=== PATIENT | female | born 1940 ===

== ENCOUNTER 2020-02-26 13:51 | Inpatient (IN) | payer MEDICARE, OTHER, SELFPAY ==
[2020-02-26 14:00] VITALS: BP 128/62; BP 140/74; PULSE 70; PULSE 92; RESP 16; TEMP 35.9; O2SAT 96; O2SAT 98; BMI 23.4
[2020-02-26 14:40] VITALS: BP 128/62; PULSE 92; RESP 16; TEMP 35.9; O2SAT 98
--- NOTE | 2020-02-26 14:45 | XR_ITS ---
EXAMINATION: XR CHEST CLINICAL INFORMATION: Cough, shortness of breath. COMPARISON: None TECHNIQUE: 2 views of the chest were obtained. FINDINGS: Mild interstitial prominence without focal airspace consolidation. No pleural effusion or pneumothorax. Mild cardiomegaly. No acute osseous abnormality. XR/XR chest 2V IMPRESSION: Mild interstitial prominence without focal airspace consolidation. Mild cardiomegaly.
--- NOTE | 2020-02-26 14:45 | CT_ITS ---
EXAMINATION: CT HEAD WITHOUT CONTRAST CLINICAL INFORMATION: AMS. COMPARISON: None TECHNIQUE: Contiguous axial imaging was performed from the skull base to vertex without intravenous administration of contrast. This CT examination was performed using dose optimization techniques as appropriate, variously including the following: *Automated exposure control *Adjustment of mA and/or kV according to patient size (this includes techniques or standardized protocols for targeted exams where dose is matched to indication/reason for exam; i.e. extremities or head) *Use of iterative reconstruction technique DLP: 575 mGy-cm FINDINGS: There is no evidence of acute intracranial hemorrhage or territorial infarction. No abnormal mass effect or midline shift is seen. Smith to white matter differentiation is well preserved. No extra-axial fluid collections are identified. The ventricles are normal in size. There is no abnormal attenuation within the brain parenchyma. There are small polyps or retention cysts in the paranasal sinuses and mastoid air cells are well-aerated. No scalp soft tissue swelling seen. There are 4 small round radiopaque foreign arteries seen within the right anterior orbital wall. CT/CT head/brain wo con IMPRESSION: No acute intracranial process seen..
--- NOTE | 2020-02-26 14:45 | ECG_ITS ---
Test Reason : CARDIAC HISTORY Blood Pressure : / mmHG Vent. Rate : 082 BPM Atrial Rate : 087 BPM P-R Int : 000 ms QRS Dur : 098 ms QT Int : 358 ms P-R-T Axes : 000 -54 -66 degrees QTc Int : 418 ms Atrial fibrillation Incomplete right bundle branch block Left anterior fascicular block Minimal voltage criteria for LVH, may be normal variant Septal infarct , age undetermined ST & T wave abnormality, consider lateral ischemia Abnormal ECG No previous ECGs available Referred By: Sandee David Electronically Signed By:NOHEMI BOYD
[2020-02-26 14:46] VITALS: BP 131/76; PULSE 80; RESP 20; TEMP 37; O2SAT 96
[2020-02-26 16:08] LABS: Basophils Percent Auto 0.3 % (0-2); Eosinophils Percent Auto 0.4 % (0-4); Hematocrit 39.1 % (37-47); Hemoglobin 13.2 g/dl (12.0-16.0); Imm Gran Abs Auto 0.03 X10*3/uL (0.00-0.03); Imm Gran Pct Auto 0.3 % (0.0-0.4); Lymphocytes Absolute Auto 1.6 X10*3/uL (1.2-4.9); Lymphocytes Percent Auto 16.7 % (20-40); Mean Corpuscular HGB Conc 33.8 g/dl (31.0-35.0); Mean Corpuscular Hemoglobin 30.1 pg (27.0-33.0); Mean Corpuscular Volume 89.3 fL (80-98); Mean Platelet Volume 11.1 fL (9.4-12.3); Monocytes Absolute Auto 0.5 X10*3/uL (0.1-1.2); Monocytes Percent Auto 5.5 % (2-11); Neutrophils Absolute Auto 7.2 X10*3/uL (2.0-8.3); Neutrophils Percent Auto 76.8 % (45-73); Platelet Count 286 X10*3/uL (160-400); Red Blood Count 4.38 X10*6/uL (4.20-5.50); Red Cell Distribution Width 13.7 % (11.0-16.0); White Blood Count 9.4 X10*3/uL (4.8-10.8)
[2020-02-26 16:09] LABS: MANUAL DIFF FLAG NO
[2020-02-26 16:15] LABS: Prothrombin Time 12.4 SEC (10.8-13.0)
--- NOTE | 2020-02-26 16:20 | ECG_ITS ---
Test Reason : AFIB Blood Pressure : / mmHG Vent. Rate : 101 BPM Atrial Rate : 104 BPM P-R Int : 000 ms QRS Dur : 096 ms QT Int : 334 ms P-R-T Axes : 000 -54 100 degrees QTc Int : 433 ms Atrial fibrillation with rapid ventricular response with premature ventricular or aberrantly conducted complexes Left axis deviation Septal infarct (cited on or before 26-FEB-2020) ST & T wave abnormality, consider lateral ischemia Abnormal ECG When compared with ECG of 26-FEB-2020 15:20, No significant change was found Referred By: Sandee David Electronically Signed By:NOHEMI BOYD
--- NOTE | 2020-02-26 16:24 | ED_ITS ---
HPI - Psych General Chief Complaint: Psychiatric Symptoms Stated Complaint: SI Time Seen by Provider: 02/26/20 14:45 Source: patient and EMS Mode of arrival: EMS Limitations: no limitations History of Present Illness HPI Narrative: 79yoF c PMHx of HTN, HLD and melena presenting to the ED via EMS after an SI attempt where she took 1 Tylenol and 1 Aleve to end her life she reports and seen in the community by N and placed on a Section 12/bed search. Patient denies prior history of SI thoughts. Reports over the past few days she has been increasingly depressed and she is unsure why although she reports that it is related to her daughter dying in May from a massive AK and her other daughter who is in remission for cancer. She reports she woke up from a nap with her and she could not take it anymore. She denies any alcohol or drug usage. Reports she feels safe at home. Patient reports she had an episode of chest pain while in the ambulance although it resolved quickly. Denies any dizziness, change in vision, jaw pain, paresthesias, any active chest pain at this time, back pain, shortness of breath, abdominal pain, nausea/vomiting, sore throat, cough, dysuria, hematuria, diarrhea or constipation. Denies any other symptoms complaints or concerns at this time. Patient reports she was seen at [facility] on 12/13/2019 and admitted for 2 weeks of chest pain. Records obtained and reveals that she had 3-troponins, bedside ultrasound done by ED did not suggest any wall motion abnormalities, aneurysm, reduced EF. EKG showed no signs of ischemia. Patient was also seen at [facility] and supposedly had a negative stress test although unable to get those records at this time. We did leave a message so we can get the patient's records from [facility] as well. Related Data Home Medications Medication Instructions Recorded Confirmed alendronate 1 tab PO DAILY 02/26/20 02/26/20 amlodipine 1 tab PO DAILY 02/26/20 02/26/20 aspirin 81 mg PO DAILY 02/26/20 02/26/20 lisinopril 1 tab PO DAILY 02/26/20 02/26/20 metoprolol succinate 1 tab PO DAILY 02/26/20 02/26/20 omeprazole 1 cap PO DAILY 02/26/20 02/26/20 sertraline [Zoloft] 50 mg PO DAILY 02/26/20 02/26/20 Allergies Allergy/AdvReac Type Severity Reaction Status Date / Time No Known Allergies Allergy Verified 02/26/20 14:17 Review of Systems Review of Systems: Constitutional : No Fever, No Chills ENT/Mouth : No Ear Pain, No Nasal Congestion, No sore throat Eyes: No Eye Pain, No Swelling, No Redness Cardiovascular : No Chest Pain, No SOB Respiratory : No Cough, No Sputum, No Dyspnea Gastrointestinal : No ingestions, No Nausea, No Vomiting, No Diarrhea, No Hematochezia, No Melena Genitourinary : No Dysuria, No Urinary Frequency, No Hematuria Musculoskeletal : No Myalgias Skin : No Skin Lesions, No rash Neuro : No Weakness, No Numbness, No Paresthesias, No Dizziness, No Headache Psych : + Anxiety, + Depression, + SI, + No thoughts of self injury, No HI, No AVH, Heme/Lymph: No Lymphadenopathy Endocrine : No Polyuria, No Polydipsia Yes all other systems are reviewed and are negative [facility] Past Medical History Attestation statement: The following information was validated with the patient. Medical History Anxiety Depression GERD (gastroesophageal reflux disease) HTN (hypertension) Social History Social History Alcohol intake: former Smoking Status: Never smoker Use of substances other than those prescribed or required for medical reasons: No Advance Directives: No Advance Directives Information Provided: No Physical Exam Vital Signs: Vital Signs: Last Vital Signs Temp 98.7 F 02/26/20 16:29 Pulse 99 02/26/20 16:29 Resp 16 02/26/20 16:29 BP 153/90 H 02/26/20 16:29 Pulse Ox 96 02/26/20 16:29 Body Mass Index 23.4 vital signs have been reviewed as normal and appeared to be correct. Blood pressure normal. Heart rate normal. Respiration rate normal. Temperature normal. Oxygen saturation normal. Appearance: Alert. Oriented X3. No acute distress. Head: Normal external exam. Normocephalic. Atraumatic. No Jiang signs noted. No raccoon eyes noted Eyes: PERRLA. EOMI. Conjunctiva and sclera normal. Eyelids normal. ENT: EAC normal. TM's Normal. Pharynx normal. Uvula midline. Moist mucous membranes. No trismus noted. No drooling noted. No muffled voice noted. Neck: Normal inspection. Neck supple. FROM. No adenopathy. Thyroid Normal. No meningeal signs. No neck mass noted. CVS: Normal heart rate and rhythm. Heart sound normal. No murmurs noted. Pulses normal throughout. Respiratory: No respiratory distress. Painless inspiration. Breath sounds normal. No wheezes/rales/rhonchi noted. Chest nontender. No accessory muscle usage noted or decreased air movement noted. Abdomen: Soft and nontender. Bowel sounds normal in all 4 quadrants. No distention noted. No organomegaly noted. No visible injury noted. Back: No CVA tenderness. Full range of motion noted. Skin: Skin warm and dry. Normal skin color. Normal skin turgor. No rashes/lesions/lacerations noted. Extremities: No lower extremity edema. Extremities exhibit normal range of motion. Extremities nontender. Neuro: Oriented X 3. No motor deficit. No sensory deficit. Reflexes normal. Psych: Appearance grossly normal, well-kept, mental status normal, speech and movement normal, speech clear, patient appears very sad and anxious along with depressed. Is cooperative. Patient does not have a normal thought process/normal thought content/judgment or good insight. Course Course Course Narrative: 14:45pm - 79yoF c PMHx of HTN, HLD and melena presenting to the ED via EMS after an SI attempt where she took 1 Tylenol and 1 Aleve to end her life she reports. Seen by N in community placed on Section 12/bed search. - Plan: Labs, EKG, CXR, salicylate level, acetaminophen levels, UA, drug urine screen, SARs/RSV/COVID swab. Then re-evaluate - patient has a chads score of 4. Reevaluation(s) Reevaluation #1: - EKG obtained and it appears that the patient has a new onset of rate controlled atrial fibrillation [facility] records in November did not show that the patient was in atrial fibrillation she is currently on aspirin daily. - I consulted with Dr. Reynaga the aircraft electrical systems specialist who instructed me to order an echo and reported that he would see her on M5 tomorrow. - troponin 21.4. All other labs WNL. - CXR no acute processes noted. - CT scan of brain no acute processes noted. - therefore the patient will be admitted to M5 the hospitalist will consult on the patient and super catherine and the aircraft electrical systems specialist will also follow-up with the patient tomorrow morning on M5. Time: 16:53 Reevaluation #2: - M5 was concerned about the patient's troponin and not being able to placed on a monitor car operator and concerned that she might become uncontrolled with her rate and they will be unable to monitor her therefore I consulted with Dr. Reynaga and he recommending admitting the patient to [facility] therefore I spoke to Dr. Langston he understands agrees the plan. Time: 17:17 MDM - Psych Restraints Face to Face Assessment: Face to Face Assessment: Current Situation: After assessment of the patient, a review of the pertinent medical record and a discussion with nursing staff, I feel the patient requires a restrain intervention. Reaction To: [] Medical Condition: [] Behavioral State: [] Continued Need: [] Medical Records Attestation: I reviewed the patient's medical records. Lab Data Attestation: I reviewed the patient's lab results. Result diagrams: 02/26/20 16:01 02/26/20 16:00 Labs: Lab Results 02/26/20 02/26/20 02/26/20 Range/Units 16:00 16:01 16:01 WBC 9.4 (4.8-10.8) X10*3/uL RBC 4.38 (4.20-5.50) X10*6/uL Hgb 13.2 (12.0-16.0) g/dl Hct 39.1 (37-47) % MCV 89.3 (80-98) fL MCH 30.1 (27.0-33.0) pg MCHC 33.8 (31.0-35.0) g/dl RDW 13.7 (11.0-16.0) % Plt Count 286 (160-400) X10*3/uL MPV 11.1 (9.4-12.3) fL Immature Gran % (Auto) 0.3 (0.0-0.4) % Neut % (Auto) 76.8 H (45-73) % Lymph % (Auto) 16.7 L (20-40) % [place] % (Auto) 5.5 (2-11) % Eos % (Auto) 0.4 (0-4) % Baso % (Auto) 0.3 (0-2) % Lymph # (Auto) 1.6 (1.2-4.9) X10*3/uL [place] # (Auto) 0.5 (0.1-1.2) X10*3/uL Eos # (Auto) 0.0 (0.0-0.4) X10*3/uL Baso # (Auto) 0.0 (0.0-0.2) X10*3/uL Abs Immat Gran (auto) 0.03 (0.00-0.03) X10*3/uL Absolute Neuts (auto) 7.2 (2.0-8.3) X10*3/uL Absolute Nucleated RBC 0.000 (0.0-0.012) X10*3/uL Nucleated RBC % (auto) 0.0 (0.0-0.2) /100WBC Hold Purple Top PT 12.4 (10.8-13.0) SEC INR 1.0 (0.9-1.1) Sodium 143 (135-145) mmol/L Potassium 3.2 L (3.3-5.1) mmol/l Chloride 105 (96-108) mmol/L Carbon Dioxide 27 (22-29) mmol/L Anion Gap 14 (12-20) BUN 18 H (9-16) mg/dL Creatinine 0.89 (0.5-1.4) mg/dL Estim Creat Clear Calc 36.2 Estimated GFR > 60 Random Glucose 108 (60-115) mg/dL Calcium 9.3 (8.4-10.2) mg/dL Magnesium 2.1 (1.6-2.6) mg/dL Total Bilirubin 0.2 (0.0-1.0) mg/dL Direct Bilirubin 0.2 (0.0-0.5) mg/dL AST 14 (5-31) U/L ALT 18 (0-31) U/L Alkaline Phosphatase 61 (39-117) U/L Troponin I High Sens (<3.5-17.0) ng/L B-Natriuretic Peptide (<100) pg/mL Total Protein 7.0 (6.5-8.0) g/dL Albumin 4.1 (3.5-5.0) g/dL Urine Color Urine Appearance Urine pH (5.0-8.0) Ur Specific [place] (1.005-1.025) Urine Protein (NEG-TRACE) MG/DL Urine Glucose (UA) (NEG) MG/DL Urine Ketones (NEG) MG/DL Urine Blood (NEG) Urine Nitrite (NEG) Ur Leukocyte Esterase (NEG) Urine RBC (0) /HPF Urine WBC (0-4) /HPF Ur Squamous Epith Cells /LPF Urine Bacteria /LPF Salicylates < 5.0 L (15-30) mg/dL Acetaminophen < 1 (<30) mcg/mL Ethyl Alcohol mg/dL 02/26/20 02/26/20 02/26/20 Range/Units 16:01 16:01 16:01 WBC (4.8-10.8) X10*3/uL RBC (4.20-5.50) X10*6/uL Hgb (12.0-16.0) g/dl Hct (37-47) % MCV (80-98) fL MCH (27.0-33.0) pg MCHC (31.0-35.0) g/dl RDW (11.0-16.0) % Plt Count (160-400) X10*3/uL MPV (9.4-12.3) fL Immature Gran % (Auto) (0.0-0.4) % Neut % (Auto) (45-73) % Lymph % (Auto) (20-40) % [place] % (Auto) (2-11) % Eos % (Auto) (0-4) % Baso % (Auto) (0-2) % Lymph # (Auto) (1.2-4.9) X10*3/uL [place] # (Auto) (0.1-1.2) X10*3/uL Eos # (Auto) (0.0-0.4) X10*3/uL Baso # (Auto) (0.0-0.2) X10*3/uL Abs Immat Gran (auto) (0.00-0.03) X10*3/uL Absolute Neuts (auto) (2.0-8.3) X10*3/uL Absolute Nucleated RBC (0.0-0.012) X10*3/uL Nucleated RBC % (auto) (0.0-0.2) /100WBC Hold Purple Top SEE NOTE PT (10.8-13.0) SEC INR (0.9-1.1) Sodium (135-145) mmol/L Potassium (3.3-5.1) mmol/l Chloride (96-108) mmol/L Carbon Dioxide (22-29) mmol/L Anion Gap (12-20) BUN (9-16) mg/dL Creatinine (0.5-1.4) mg/dL Estim Creat Clear Calc Estimated GFR Random Glucose (60-115) mg/dL Calcium (8.4-10.2) mg/dL Magnesium (1.6-2.6) mg/dL Total Bilirubin (0.0-1.0) mg/dL Direct Bilirubin (0.0-0.5) mg/dL AST (5-31) U/L ALT (0-31) U/L Alkaline Phosphatase (39-117) U/L Troponin I High Sens 21.4 H (<3.5-17.0) ng/L B-Natriuretic Peptide 122 H (<100) pg/mL Total Protein (6.5-8.0) g/dL Albumin (3.5-5.0) g/dL Urine Color Urine Appearance Urine pH (5.0-8.0) Ur Specific [place] (1.005-1.025) Urine Protein (NEG-TRACE) MG/DL Urine Glucose (UA) (NEG) MG/DL Urine Ketones (NEG) MG/DL Urine Blood (NEG) Urine Nitrite (NEG) Ur Leukocyte Esterase (NEG) Urine RBC (0) /HPF Urine WBC (0-4) /HPF Ur Squamous Epith Cells /LPF Urine Bacteria /LPF Salicylates (15-30) mg/dL Acetaminophen (<30) mcg/mL Ethyl Alcohol < 10 mg/dL 02/26/20 Range/Units 16:49 WBC (4.8-10.8) X10*3/uL RBC (4.20-5.50) X10*6/uL Hgb (12.0-16.0) g/dl Hct (37-47) % MCV (80-98) fL MCH (27.0-33.0) pg MCHC (31.0-35.0) g/dl RDW (11.0-16.0) % Plt Count (160-400) X10*3/uL MPV (9.4-12.3) fL Immature Gran % (Auto) (0.0-0.4) % Neut % (Auto) (45-73) % Lymph % (Auto) (20-40) % [place] % (Auto) (2-11) % Eos % (Auto) (0-4) % Baso % (Auto) (0-2) % Lymph # (Auto) (1.2-4.9) X10*3/uL [place] # (Auto) (0.1-1.2) X10*3/uL Eos # (Auto) (0.0-0.4) X10*3/uL Baso # (Auto) (0.0-0.2) X10*3/uL Abs Immat Gran (auto) (0.00-0.03) X10*3/uL Absolute Neuts (auto) (2.0-8.3) X10*3/uL Absolute Nucleated RBC (0.0-0.012) X10*3/uL Nucleated RBC % (auto) (0.0-0.2) /100WBC Hold Purple Top PT (10.8-13.0) SEC INR (0.9-1.1) Sodium (135-145) mmol/L Potassium (3.3-5.1) mmol/l Chloride (96-108) mmol/L Carbon Dioxide (22-29) mmol/L Anion Gap (12-20) BUN (9-16) mg/dL Creatinine (0.5-1.4) mg/dL Estim Creat Clear Calc Estimated GFR Random Glucose (60-115) mg/dL Calcium (8.4-10.2) mg/dL Magnesium (1.6-2.6) mg/dL Total Bilirubin (0.0-1.0) mg/dL Direct Bilirubin (0.0-0.5) mg/dL AST (5-31) U/L ALT (0-31) U/L Alkaline Phosphatase (39-117) U/L Troponin I High Sens (<3.5-17.0) ng/L B-Natriuretic Peptide (<100) pg/mL Total Protein (6.5-8.0) g/dL Albumin (3.5-5.0) g/dL Urine Color YELLOW Urine Appearance CLEAR Urine pH 6.5 (5.0-8.0) Ur Specific [place] 1.015 (1.005-1.025) Urine Protein NEG (NEG-TRACE) MG/DL Urine Glucose (UA) NEG (NEG) MG/DL Urine Ketones NEG (NEG) MG/DL Urine Blood NEG (NEG) Urine Nitrite NEG (NEG) Ur Leukocyte Esterase TRACE H (NEG) Urine RBC 0 (0) /HPF Urine WBC 5-9 H (0-4) /HPF Ur Squamous Epith Cells 2+ /LPF Urine Bacteria 1+ /LPF Salicylates (15-30) mg/dL Acetaminophen (<30) mcg/mL Ethyl Alcohol mg/dL Imaging Data Chest x-ray: Attestation: I personally reviewed and interpreted this imaging study as follows: Radiologist's impression: IMPRESSION: Mild interstitial prominence without focal airspace consolidation. Mild cardiomegaly. CT scan - head: Attestation: I personally reviewed and interpreted this imaging study as follows: Radiologist's impression: IMPRESSION: No acute intracranial process seen.. ECG Data Attestation: I personally reviewed and interpreted this ECG as follows: ECG interpretation date: 02/26/20 ECG interpretation time: 15:20 Interpretation: Atrial fibrillation with a ventricular rate of 82 with the incomplete right bundle branch block with left anterior fascicular block with minimal voltage criteria for LVH nonspecific ST and T-wave abnormalities no acute ischemic changes noted. This is a new onset of atrial fibrillation we obtained the EKG from [facility] on November 2019 and she had sinus rhythm with frequent premature ventricular complexes the rest of the EKG is similar compared to today. No acute ischemic changes noted today. Critical Care Time Critical Care Time Critical Care Time: Yes Total Critical Care Time: 60 Attestation: I personally attest to this time spent taking care of the patient Discharge Plan Discharge Clinical Impression: Suicidal ideation, Depression, Atrial fibrillation with controlled ventricular rate, Elevated troponin Patient Disposition: Admitted As Inpatient
[2020-02-26 16:27] LABS: Ethanol < 10 mg/dL
[2020-02-26 16:29] VITALS: BP 153/90; PULSE 99; RESP 16; TEMP 37.1; O2SAT 96
[2020-02-26 16:33] LABS: Alanine Aminotransferase 18 U/L (0-31); Albumin Level 4.1 g/dL (3.5-5.0); Alkaline Phosphatase 61 U/L (39-117); Anion Gap 14 (12-20); Aspartate Amino Transferase 14 U/L (5-31); Bilirubin Direct 0.2 mg/dL (0.0-0.5); Bilirubin Total 0.2 mg/dL (0.0-1.0); Blood Urea Nitrogen 18 mg/dL (9-16); Calcium 9.3 mg/dL (8.4-10.2); Carbon Dioxide 27 mmol/L (22-29); Chloride 105 mmol/L (96-108); Creatinine Clr Calc Pharmacy 36.2; Estimated Glomerular Filt Rate > 60; Glucose Random 108 mg/dL (60-115); Magnesium 2.1 mg/dL (1.6-2.6); Potassium 3.2 mmol/l (3.3-5.1); Salicylate < 5.0 mg/dL (15-30); Sodium 143 mmol/L (135-145)
[2020-02-26 16:44] LABS: Acetaminophen LAB < 1 mcg/mL (<30)
[2020-02-26 16:54] LABS: B Type Natriuretic Peptide 122 pg/mL (<100); Troponin-I High Sensitivity 21.4 ng/L (<3.5-17.0)
[2020-02-26 16:56] LABS: Glucose Urine UA NEG (NEG); Leukocyte Esterase Urine TRACE (NEG); Nitrite Urine NEG (NEG); PH 6.5 (5.0-8.0); Specific Gravity - Urine 1.015 (1.005-1.025); Urine Blood NEG (NEG); Urine Ketones NEG (NEG); Urine Protein NEG (NEG-TRACE)
[2020-02-26 16:57] LABS: Appearance Urine CLEAR; Color Urine YELLOW
[2020-02-26 17:04] LABS: Bacteria Urine 1+ /LPF; RBC Urine 0 /HPF (0); Squamous Epithelial Cell Urine 2+ /LPF
[2020-02-26 17:27] LABS: Influenza A PCR NEGATIVE (Negative); Influenza B PCR NEGATIVE (Negative); Resp Syncy Virus RNA Qual PCR NEGATIVE (Negative); SARS COV2 PCR INHOUSE NEGATIVE (Negative)
--- NOTE | 2020-02-26 17:35 | PC.NURSE ---
Pt moved to Main ED, report given to Mark العلي. Pt ambulated with steady gait.
--- NOTE | 2020-02-26 17:51 | MHC.CARE ---
CARE Team speaks with Emma from [facility], informing [facility] that pt is being admitted to medical floor. Plan is for [facility] to see pt once medically cleared. Please re consult [facility] once pt is ready for psychiatric placement.
--- NOTE | 2020-02-26 19:45 | P.HPHOSP_ITS ---
History of Present Illness Date of Service: 02/26/20 Chief Complaint: new onset a.efrem Past medical history of hypertension, depression, anxiety who presents to the hospital after a suicidal attempt. Patient initially was going to be admitted directly to [facility] but was found to have AFib on EKG done in the ED. patient is being admitted to the medical team for an echo recommended by Cardiology. She is feeling very depressed, currently not suicidal and wants to go home but reports that she did want to harm herself earlier in the day by ingesting some pills not that many but she is not willing to tell me which pills as she does not know. She has been feeling palpitations for a while she says and points to chest pain that is left-sided, reproducible on palpation of the chest, not associated with any radiation, any shortness of breath, no nausea or vomiting. The chest pain is 3/10, constant, started today, and occurs on any movement and on pressing on her chest. Denies any trauma to the chest. Otherwise denies any headache, change in vision, she is complaining of suprapubic pain, diarrhea constipation, no urinary symptoms and no lower extremity edema. On arrival To the ED hemodynamically stable with no significant abnormal vitals, Labs are significant for WBC count of 9.4, hemoglobin of 13.2, hematocrit 39.1, sodium of 143, potassium 3.2, BUN of 18, creatinine of 0.89, high sensitivity troponin of 21 which improved to 19, BNP of 122 Her UA is positive for leukocyte Estrace and urine WBC COVID-19 negative, imaging including chest x-ray shows interstitial prominence without focal airspace consolidation. Cardiomegaly. No acute intracranial process seen on head CT. Past medical history: Anxiety, depression, GERD, hypertension Surgical history: Denies Family history: No history of cardiac disease in family including no AFib Social history: Comes from home, lives with her , walks independently, denies any tobacco alcohol or illicit drug Review of Systems Review of Systems: Yes all other systems are reviewed and are negative [facility] Medical History (Updated 02/26/20 @ 20:14 by Royce Leiva MD) Anxiety Depression GERD (gastroesophageal reflux disease) HTN (hypertension) Social History Alcohol intake: former Smoking Status: Never smoker Use of substances other than those prescribed or required for medical reasons: No Advance Directives: No Advance Directives Information Provided: No Meds Allergies Allergy/AdvReac Type Severity Reaction Status Date / Time No Known Allergies Allergy Verified 02/26/20 14:17 Home Medications Medication Instructions Recorded Confirmed Type alendronate 1 tab PO DAILY 02/26/20 02/26/20 History amlodipine 1 tab PO DAILY 02/26/20 02/26/20 History aspirin 81 mg PO DAILY 02/26/20 02/26/20 History lisinopril 1 tab PO DAILY 02/26/20 02/26/20 History metoprolol succinate 1 tab PO DAILY 02/26/20 02/26/20 History omeprazole 1 cap PO DAILY 02/26/20 02/26/20 History sertraline [Zoloft] 50 mg PO DAILY 02/26/20 02/26/20 History Physical Exam Vital Signs and Narrative: Vital Signs: Last Vital Signs Temp 98.7 F 02/26/20 16:29 Pulse 99 02/26/20 16:29 Resp 16 02/26/20 16:29 BP 153/90 H 02/26/20 16:29 Pulse Ox 96 02/26/20 16:29 Body Mass Index 23.4 Const: General: cooperative and no acute distress Orientation/consciousness: patient oriented x3 Eyes: General: appearance normal, both eyes and all related structures Chest: Other: Reproducible chest tenderness on the left side on palpation Resp: Effort & Inspection: normal respiratory effort and able to speak in complete sentences Cardio: Rate: regular rate Rhythm: regular rhythm GI: Palpation (GI): Soft to palpation Auscultation: normal bowel sounds Skin: General skin exam: no rashes or lesions noted Neuro: General: patient oriented x3 Cognition (Neuro): normal cognition Extrem: General: Yes normal to inspection and Yes no pedal edema Results Labs CBC and Chem 7: 02/26/20 16:01 02/26/20 16:00 Labs: Laboratory Results - last 24 hr 02/26/20 02/26/20 02/26/20 16:00 16:01 16:01 MCV 89.3 MCH 30.1 MCHC 33.8 RDW 13.7 Plt Count 286 MPV 11.1 Immature Gran % (Auto) 0.3 Neut % (Auto) 76.8 H Lymph % (Auto) 16.7 L [place] % (Auto) 5.5 Eos % (Auto) 0.4 Baso % (Auto) 0.3 Lymph # (Auto) 1.6 Curry # (Auto) 0.5 Eos # (Auto) 0.0 Baso # (Auto) 0.0 Abs Immat Gran (auto) 0.03 Absolute Neuts (auto) 7.2 Absolute Nucleated RBC 0.000 Nucleated RBC % (auto) 0.0 Hold Purple Top PT 12.4 INR 1.0 Anion Gap 14 Estim Creat Clear Calc 36.2 Estimated GFR > 60 Random Glucose 108 Calcium 9.3 Magnesium 2.1 Total Bilirubin 0.2 Direct Bilirubin 0.2 AST 14 ALT 18 Alkaline Phosphatase 61 Troponin I High Sens B-Natriuretic Peptide Total Protein 7.0 Albumin 4.1 Urine Color Urine Appearance Urine pH Ur Specific [place] Urine Protein Urine Glucose (UA) Urine Ketones Urine Blood Urine Nitrite Ur Leukocyte Esterase Urine RBC Urine WBC Ur Squamous Epith Cells Urine Bacteria Salicylates < 5.0 L Acetaminophen < 1 Ethyl Alcohol Coronavirus (PCR) Influenza Type A (PCR) Influenza Type B (PCR) RSV RNA Qual (PCR) 02/26/20 02/26/20 02/26/20 16:01 16:01 16:01 MCV MCH MCHC RDW Plt Count MPV Immature Gran % (Auto) Neut % (Auto) Lymph % (Auto) [place] % (Auto) Eos % (Auto) Baso % (Auto) Lymph # (Auto) Curry # (Auto) Eos # (Auto) Baso # (Auto) Abs Immat Gran (auto) Absolute Neuts (auto) Absolute Nucleated RBC Nucleated RBC % (auto) Hold Purple Top SEE NOTE PT INR Anion Gap Estim Creat Clear Calc Estimated GFR Random Glucose Calcium Magnesium Total Bilirubin Direct Bilirubin AST ALT Alkaline Phosphatase Troponin I High Sens 21.4 H B-Natriuretic Peptide 122 H Total Protein Albumin Urine Color Urine Appearance Urine pH Ur Specific [place] Urine Protein Urine Glucose (UA) Urine Ketones Urine Blood Urine Nitrite Ur Leukocyte Esterase Urine RBC Urine WBC Ur Squamous Epith Cells Urine Bacteria Salicylates Acetaminophen Ethyl Alcohol < 10 Coronavirus (PCR) Influenza Type A (PCR) Influenza Type B (PCR) RSV RNA Qual (PCR) 02/26/20 02/26/20 16:33 16:49 MCV MCH MCHC RDW Plt Count MPV Immature Gran % (Auto) Neut % (Auto) Lymph % (Auto) [place] % (Auto) Eos % (Auto) Baso % (Auto) Lymph # (Auto) Curry # (Auto) Eos # (Auto) Baso # (Auto) Abs Immat Gran (auto) Absolute Neuts (auto) Absolute Nucleated RBC Nucleated RBC % (auto) Hold Purple Top PT INR Anion Gap Estim Creat Clear Calc Estimated GFR Random Glucose Calcium Magnesium Total Bilirubin Direct Bilirubin AST ALT Alkaline Phosphatase Troponin I High Sens B-Natriuretic Peptide Total Protein Albumin Urine Color YELLOW Urine Appearance CLEAR Urine pH 6.5 Ur Specific [place] 1.015 Urine Protein NEG Urine Glucose (UA) NEG Urine Ketones NEG Urine Blood NEG Urine Nitrite NEG Ur Leukocyte Esterase TRACE H Urine RBC 0 Urine WBC 5-9 H Ur Squamous Epith Cells 2+ Urine Bacteria 1+ Salicylates Acetaminophen Ethyl Alcohol Coronavirus (PCR) NEGATIVE Influenza Type A (PCR) NEGATIVE Influenza Type B (PCR) NEGATIVE RSV RNA Qual (PCR) NEGATIVE Imaging Radiologist's Impressions: Impressions Chest X-Ray 02/26/20 14:45 IMPRESSION: Mild interstitial prominence without focal airspace consolidation. Mild cardiomegaly. Head CT 02/26/20 14:45 IMPRESSION: No acute intracranial process seen.. Assessment and Plan (1) Atrial fibrillation with controlled ventricular rate: Status: Acute (2) Suicidal ideation: Status: Acute (3) Depression: Status: Acute (4) Elevated troponin: Status: Acute (5) HTN (hypertension): Status: Acute 79-year-old female with past medical history of depression anxiety and hypertension who presents to the hospital after a suicidal attempt found to have atrial fibrillation with controlled ventricular rate. # new onset AFib - controlled ventricular rate - patient on metoprolol at home - patient denies any previous history - has evidence of cardiomegaly on chest x-ray although not sensitive Plan: - will obtain echocardiogram - continue metoprolol - start Xarelto - consult cardiology # suicidal attempt - unclear how many pills she took or what she took because she is refusing to report but according to her she took 1 pill of Tylenol will pill of Aleve - patient reports no suicidal ideation at this time Plan: - will need sitter at bedside - admit to [facility] once medically cleared # hypertension - stable - continue amlodipine, lisinopril, metoprolol # Depression anxiety - psychiatry on consult - management per Psychiatry DVT prophylaxis: Xarelto
[2020-02-26 19:47] LABS: Thyroid Stimulating Hormone 1.83 uIU/mL (0.32-4.0)
[2020-02-26 19:52] LABS: Troponin-I High Sensitivity 19.1 ng/L (<3.5-17.0)
[2020-02-26 22:08] VITALS: BP 132/58; PULSE 112; RESP 16; TEMP 36.9; O2SAT 96
[2020-02-26 23:30] VITALS: BP 144/87; PULSE 103; RESP 16; TEMP 36.6; O2SAT 97
[2020-02-27] VITALS (8 sets, daily range): BP systolic 104–148; BP diastolic 55–83; PULSE 72–100; RESP 18–19; TEMP 36.6–36.8; O2SAT 95–97
[2020-02-27] MEDS: 0.9 % Sodium Chloride Flush 3 ML SYRINGE IVFLUSH ×4 (00:51→21:47)
[2020-02-27] MEDS: traZODone HCL 25 MG HALFTAB PO ×2 (01:07→22:16)
[2020-02-27] MEDS: Rivaroxaban 15 MG TABLET PO ×2 (01:07→16:21)
[2020-02-27] MEDS: oxyCODONE HCl Immed Release 5 MG TABLET PO (01:10)
[2020-02-27 05:14] LABS: Basophils Percent Auto 0.5 % (0-2); Eosinophils Absolute Auto 0.1 X10*3/uL (0.0-0.4); Eosinophils Percent Auto 0.8 % (0-4); Hematocrit 37.8 % (37-47); Hemoglobin 12.8 g/dl (12.0-16.0); Imm Gran Abs Auto 0.03 X10*3/uL (0.00-0.03); Imm Gran Pct Auto 0.3 % (0.0-0.4); Lymphocytes Absolute Auto 2.3 X10*3/uL (1.2-4.9); Lymphocytes Percent Auto 25.9 % (20-40); Mean Corpuscular HGB Conc 33.9 g/dl (31.0-35.0); Mean Corpuscular Hemoglobin 30.3 pg (27.0-33.0); Mean Corpuscular Volume 89.4 fL (80-98); Monocytes Absolute Auto 0.5 X10*3/uL (0.1-1.2); Monocytes Percent Auto 5.5 % (2-11); Neutrophils Absolute Auto 5.9 X10*3/uL (2.0-8.3); Platelet Count 247 X10*3/uL (160-400); Red Blood Count 4.23 X10*6/uL (4.20-5.50); Red Cell Distribution Width 13.8 % (11.0-16.0); White Blood Count 8.9 X10*3/uL (4.8-10.8)
[2020-02-27 05:17] LABS: MANUAL DIFF FLAG NO
[2020-02-27 05:49] LABS: Anion Gap 15 (12-20); Blood Urea Nitrogen 14 mg/dL (9-16); Calcium 9.1 mg/dL (8.4-10.2); Carbon Dioxide 25 mmol/L (22-29); Chloride 107 mmol/L (96-108); Creatinine Clr Calc Pharmacy 44.7; Estimated Glomerular Filt Rate > 60; Glucose Random 100 mg/dL (60-115); Sodium 144 mmol/L (135-145)
[2020-02-27] MEDS: cefTRIAXone sodium 1 GM in 0.9 % Sodium Chloride 50 ML IV (06:15)
[2020-02-27] MEDS: Metoprolol Succinate ER 25 MG TAB.ER.24H PO ×2 (09:11→12:21)
[2020-02-27] MEDS: amLODIPine Besylate 10 MG TABLET PO (09:12)
[2020-02-27] MEDS: Omeprazole 20 MG CAPSULE.DR PO (09:12)
[2020-02-27] MEDS: Aspirin 81 MG TAB.CHEW PO (09:12)
[2020-02-27] MEDS: lisinopriL 40 MG TABLET PO (09:12)
[2020-02-27] MEDS: Sertraline HCL 50 MG TABLET PO (09:13)
--- NOTE | 2020-02-27 10:47 | PM.CNCAR ---
History of Present Illness History of Present Illness Date of Service: 02/27/20 Consult reason: atrial fibrillation Chief complaint: Afib Narrative: This is a cardiology consultation regarding atrial fibrillation. Patient states that she has never had any cardiac problems in the past. No history of any coronary disease or myocardial infarction or cardiomyopathy or in fact any other cardiac concerns. She was admitted for concerns of suicidal ideation but patient states that this is not true. She never really intended to kill herself or harm herself according to her. However, in this setting, EKG was performed that shows atrial fibrillation. Hence we have been asked to see her. Patient herself does not have any cardiac symptoms like angina or shortness of breath but she did have some palpitations intermittently for the last couple of weeks that she apparently it note. Overnight she did have some rapid rates and she did feel those symptoms as palpitations/racing. Otherwise, she states that she is fairly active at baseline without any major limitations. Review of Systems Review of Systems: Yes all other systems are reviewed and are negative Cardiovascular: Cardiovascular: Reports as per HPI, Reports no additional cardiovascular complaints, Denies acrocyanosis, Denies cool extremities, Denies painful fingertips, Denies chest pain, Denies chest pain at rest, Denies diaphoresis, Denies syncope, Reports irregular heart rhythm, Denies claudication, Denies leg edema, Denies lightheadedness, Reports palpitations and Denies dyspnea Respiratory: Respiratory: Denies dyspnea Neurologic: Denies syncope Endocrine: Endocrine: Reports palpitations PMFSH Past Medical History Medical History (Updated 02/27/20 @ 11:00 by Kam Reynaga MD) Anxiety Depression GERD (gastroesophageal reflux disease) HTN (hypertension) Family History Pertinent family history: Report of myocardial infarction in daughter. Other daughter with cancer. Social History Social History Household Members: Spouse Housing: House Do you presently have visiting nurse or other home services: No Alcohol intake: former Smoking Status: Never smoker Use of substances other than those prescribed or required for medical reasons: No Currently Displaying Signs/Symptoms of Drug Intoxication Withdrawal: No Any prior treatment program specific to substance use: No Have you been hit, kicked, punched, or otherwise hurt by someone within the past year? If so, by whom?: No Do you feel safe in your current relationship?: Yes Is there a partner from a previous relationship who is making you feel unsafe now?: No Are you made to feel afraid or neglected: No Advance Directives: No Advance Directives Information Provided: No Advance Directives on File: Yes Do you have thoughts of harming others: None Do you have a plan to hurt others: No Plan Recently lost weight without trying: Yes service: No Current occupational status: retired Meds Allergies Allergy/AdvReac Type Severity Reaction Status Date / Time No Known Allergies Allergy Verified 02/26/20 14:17 Home Medications Medication Instructions Recorded Confirmed Type alendronate 1 tab PO DAILY 02/26/20 02/26/20 History amlodipine 1 tab PO DAILY 02/26/20 02/26/20 History aspirin 81 mg PO DAILY 02/26/20 02/26/20 History lisinopril 1 tab PO DAILY 02/26/20 02/26/20 History metoprolol succinate 1 tab PO DAILY 02/26/20 02/26/20 History omeprazole 1 cap PO DAILY 02/26/20 02/26/20 History sertraline [Zoloft] 50 mg PO DAILY 02/26/20 02/26/20 History Physical Exam Vital Signs: Vital Signs: Last Vital Signs Temp 98 F 02/27/20 07:41 Pulse 88 02/27/20 09:12 Resp 18 02/27/20 07:41 BP 135/71 02/27/20 09:12 Pulse Ox 97 02/27/20 07:41 Body Mass Index 23.4 Const: General: cooperative, comfortable and no acute distress Orientation/consciousness: patient oriented x3 HENMT: Other: Unremarkable Neck: Neck: Yes normal visual inspection Chest: Chest palpation & inspection: normal inspection of the chest Resp: Auscultation: clear to auscultation bilaterally, no crackles and no wheezes Cardio: Jugular venous distension: no JVD Palpation: normal PMI Heart sounds: S1 normal heart sound present, S2 normal heart sound present, no gallops, no murmurs and no rubs GI: Palpation (GI): Soft to palpation Back/Spine/Pelvis: Other: unremarkable Skin: General skin exam: no rashes or lesions noted Neuro: General: patient oriented x3 Extrem: General: Yes no clubbing, cyanosis or edema Psych: Mental Status: mental status grossly normal Results Labs and Meds Result diagrams: 02/27/20 04:51 02/27/20 04:51 Lab results: Laboratory Results - last 24 hr 02/26/20 02/26/20 02/26/20 16:00 16:01 16:01 WBC 9.4 RBC 4.38 Hgb 13.2 Hct 39.1 MCV 89.3 MCH 30.1 MCHC 33.8 RDW 13.7 Plt Count 286 MPV 11.1 Immature Gran % (Auto) 0.3 Neut % (Auto) 76.8 H Lymph % (Auto) 16.7 L [place] % (Auto) 5.5 Eos % (Auto) 0.4 Baso % (Auto) 0.3 Lymph # (Auto) 1.6 [place] # (Auto) 0.5 Eos # (Auto) 0.0 Baso # (Auto) 0.0 Abs Immat Gran (auto) 0.03 Absolute Neuts (auto) 7.2 Absolute Nucleated RBC 0.000 Nucleated RBC % (auto) 0.0 Hold Purple Top PT 12.4 INR 1.0 Sodium 143 Potassium 3.2 L Chloride 105 Carbon Dioxide 27 Anion Gap 14 BUN 18 H Creatinine 0.89 Estim Creat Clear Calc 36.2 Estimated GFR > 60 Random Glucose 108 Calcium 9.3 Magnesium 2.1 Total Bilirubin 0.2 Direct Bilirubin 0.2 AST 14 ALT 18 Alkaline Phosphatase 61 Troponin I High Sens B-Natriuretic Peptide Total Protein 7.0 Albumin 4.1 TSH 1.83 Urine Color Urine Appearance Urine pH Ur Specific [place] Urine Protein Urine Glucose (UA) Urine Ketones Urine Blood Urine Nitrite Ur Leukocyte Esterase Urine RBC Urine WBC Ur Squamous Epith Cells Urine Bacteria Salicylates < 5.0 L Acetaminophen < 1 Ethyl Alcohol Coronavirus (PCR) Influenza Type A (PCR) Influenza Type B (PCR) RSV RNA Qual (PCR) 02/26/20 02/26/20 02/26/20 16:01 16:01 16:01 WBC RBC Hgb Hct MCV MCH MCHC RDW Plt Count MPV Immature Gran % (Auto) Neut % (Auto) Lymph % (Auto) [place] % (Auto) Eos % (Auto) Baso % (Auto) Lymph # (Auto) [place] # (Auto) Eos # (Auto) Baso # (Auto) Abs Immat Gran (auto) Absolute Neuts (auto) Absolute Nucleated RBC Nucleated RBC % (auto) Hold Purple Top SEE NOTE PT INR Sodium Potassium Chloride Carbon Dioxide Anion Gap BUN Creatinine Estim Creat Clear Calc Estimated GFR Random Glucose Calcium Magnesium Total Bilirubin Direct Bilirubin AST ALT Alkaline Phosphatase Troponin I High Sens 21.4 H B-Natriuretic Peptide 122 H Total Protein Albumin TSH Urine Color Urine Appearance Urine pH Ur Specific [place] Urine Protein Urine Glucose (UA) Urine Ketones Urine Blood Urine Nitrite Ur Leukocyte Esterase Urine RBC Urine WBC Ur Squamous Epith Cells Urine Bacteria Salicylates Acetaminophen Ethyl Alcohol < 10 Coronavirus (PCR) Influenza Type A (PCR) Influenza Type B (PCR) RSV RNA Qual (PCR) 02/26/20 02/26/20 02/26/20 16:33 16:49 19:02 WBC RBC Hgb Hct MCV MCH MCHC RDW Plt Count MPV Immature Gran % (Auto) Neut % (Auto) Lymph % (Auto) [place] % (Auto) Eos % (Auto) Baso % (Auto) Lymph # (Auto) [place] # (Auto) Eos # (Auto) Baso # (Auto) Abs Immat Gran (auto) Absolute Neuts (auto) Absolute Nucleated RBC Nucleated RBC % (auto) Hold Purple Top PT INR Sodium Potassium Chloride Carbon Dioxide Anion Gap BUN Creatinine Estim Creat Clear Calc Estimated GFR Random Glucose Calcium Magnesium Total Bilirubin Direct Bilirubin AST ALT Alkaline Phosphatase Troponin I High Sens 19.1 H B-Natriuretic Peptide Total Protein Albumin TSH Urine Color YELLOW Urine Appearance CLEAR Urine pH 6.5 Ur Specific [place] 1.015 Urine Protein NEG Urine Glucose (UA) NEG Urine Ketones NEG Urine Blood NEG Urine Nitrite NEG Ur Leukocyte Esterase TRACE H Urine RBC 0 Urine WBC 5-9 H Ur Squamous Epith Cells 2+ Urine Bacteria 1+ Salicylates Acetaminophen Ethyl Alcohol Coronavirus (PCR) NEGATIVE Influenza Type A (PCR) NEGATIVE Influenza Type B (PCR) NEGATIVE RSV RNA Qual (PCR) NEGATIVE 02/27/20 02/27/20 04:51 04:51 WBC 8.9 RBC 4.23 Hgb 12.8 Hct 37.8 MCV 89.4 MCH 30.3 MCHC 33.9 RDW 13.8 Plt Count 247 MPV 11.0 Immature Gran % (Auto) 0.3 Neut % (Auto) 67.0 Lymph % (Auto) 25.9 [place] % (Auto) 5.5 Eos % (Auto) 0.8 Baso % (Auto) 0.5 Lymph # (Auto) 2.3 [place] # (Auto) 0.5 Eos # (Auto) 0.1 Baso # (Auto) 0.0 Abs Immat Gran (auto) 0.03 Absolute Neuts (auto) 5.9 Absolute Nucleated RBC 0.000 Nucleated RBC % (auto) 0.0 Hold Purple Top PT INR Sodium 144 Potassium 3.0 L Chloride 107 Carbon Dioxide 25 Anion Gap 15 BUN 14 Creatinine 0.72 Estim Creat Clear Calc 44.7 Estimated GFR > 60 Random Glucose 100 Calcium 9.1 Magnesium Total Bilirubin Direct Bilirubin AST ALT Alkaline Phosphatase Troponin I High Sens B-Natriuretic Peptide Total Protein Albumin TSH Urine Color Urine Appearance Urine pH Ur Specific [place] Urine Protein Urine Glucose (UA) Urine Ketones Urine Blood Urine Nitrite Ur Leukocyte Esterase Urine RBC Urine WBC Ur Squamous Epith Cells Urine Bacteria Salicylates Acetaminophen Ethyl Alcohol Coronavirus (PCR) Influenza Type A (PCR) Influenza Type B (PCR) RSV RNA Qual (PCR) Imaging Radiologist's impression: Impressions Chest X-Ray 02/26/20 14:45 IMPRESSION: Mild interstitial prominence without focal airspace consolidation. Mild cardiomegaly. Head CT 02/26/20 14:45 IMPRESSION: No acute intracranial process seen.. Assessment and Plan (1) Atrial fibrillation with rapid ventricular response: Status: Acute (2) Essential hypertension: Status: Acute (3) Depression: Qualifiers: Depression Type: unspecified Qualified Code(s): F32.9 - Major depressive disorder, single episode, unspecified Status: Acute (4) Suicidal ideation: Status: Acute (5) Elevated troponin: Status: Acute Newly detected atrial fibrillation of uncertain duration. Patient does have some symptoms of palpitations. On telemetry, her rhythm is atrial fibrillation with some PVCs. There are some rapid rates but otherwise in the 90-100/Min. Slightly elevated troponin is most likely from the atrial fibrillation itself. We will get an echocardiogram for LV function assessment. Otherwise she is already on beta-blockers but we can go up on the dose. Will change to Toprol XL 50 mg daily. She has already been commenced on Xarelto. We will follow up with you.
--- NOTE | 2020-02-27 11:08 | MHC.CM.PN ---
PT REPORTS SHE LIVES HOME WITH HER AND IS FULLY INDEPENDENT WITH ALL CARE AND MOBILITY. PT DENIES HAVING DME OR USING HOME/COMMUNITY SERVICES. PT REPORTS SHE HAS A HCP COMPLETED NAMING HER DAUGHTER, STACY, HER AGENT./ DC PLAN TBD PENDING N EVAL ONCE PT IS MEDICALLY CLEARED. TRANSPORTATION TBD PENDING N EVAL RECOMMENDATIONS
--- NOTE | 2020-02-27 11:10 | MHC.CARE ---
Spoke to patient's RN, she stated patient is doing well but not medically cleared yet and today has denied suicidal ideation. Will call N and maintain contact with the CARE team about patient status.
--- NOTE | 2020-02-27 12:23 | HO.PM.IMPN ---
Subjective Subjective Date of Service: 02/28/20 Interval History: Seen in f/u for afib with RVR ? SI. Feels fine, no palpitation and denies SI ROS: no chest pain, no dizziness, no suicide ideation Physical Exam Vital Signs: Vital Signs: Last Vital Signs Temp 98 F 02/27/20 11:39 Pulse 98 02/27/20 12:21 Resp 18 02/27/20 11:39 BP 148/80 H 02/27/20 12:21 Pulse Ox 96 02/27/20 11:39 Body Mass Index 23.4 Objective Data Current Medications Generic Name Dose Route Start Last Admin Trade Name Freq PRN Reason Stop Dose Admin Acetaminophen 650 mg 02/26/20 23:29 Acetaminophen 325 Mg Tablet PO Q6H PRN Pain, Mild (Pain Scale 1-3) Amlodipine Besylate 10 mg 02/27/20 09:00 02/27/20 09:12 Amlodipine Besylate 10 Mg Tablet PO 10 mg DAILY LINDSAY Administration Protocol Aspirin 81 mg 02/27/20 09:00 02/27/20 09:12 Aspirin 81 Mg Tab.Chew PO 81 mg DAILY LINDSAY Administration Docusate Sodium 100 mg 02/26/20 23:29 Docusate Sodium 100 Mg Capsule PO DAILY PRN Constipation Ceftriaxone Sodium 1 gm/ 50 mls @ 100 mls/hr 02/27/20 06:00 02/27/20 06:44 Sodium Chloride IV Infused Q24H LINDSAY Infusion Lisinopril 40 mg 02/27/20 09:00 02/27/20 09:12 Lisinopril 40 Mg Tablet PO 40 mg DAILY LINDSAY Administration Protocol Metoprolol Succinate 50 mg 02/28/20 09:00 Metoprolol Succinate Er 50 Mg Tab.Er.24h PO DAILY [facility] Protocol Omeprazole 20 mg 02/27/20 09:00 02/27/20 09:12 Omeprazole 20 Mg Capsule.Dr PO 20 mg DAILY LINDSAY Administration Ondansetron HCl 4 mg 02/26/20 23:29 Ondansetron Hcl 4 Mg/2 Ml Vial IVPUSH Q8H PRN Nausea and Vomiting Rivaroxaban 15 mg 02/27/20 00:45 02/27/20 01:07 Rivaroxaban 15 Mg Tablet PO 15 mg DAILY@1700 LINDSAY Administration Sertraline HCl 50 mg 02/27/20 09:00 02/27/20 09:13 Sertraline Hcl 50 Mg Tablet PO 50 mg DAILY LINDSAY Administration Sodium Chloride 3 ml 02/27/20 00:00 02/27/20 09:10 0.9 % Sodium Chloride Flush 3 Ml Syringe IVFLUSH 3 ml QSHIFT LINDSAY Administration Trazodone HCl 25 mg 02/27/20 00:36 02/27/20 01:07 Trazodone Hcl 25 Mg Halftab PO 25 mg BEDTIME PRN Administration Insomnia Labs CBC & Chem 7: 02/27/20 04:51 02/27/20 04:51 Microbiology Microbiology Results: Microbiology 02/26/20 16:58 Urine clean catch - Clean Catch Midstream Urine Culture - Preliminary No growth to date. Assessment and Plan (1) Atrial fibrillation with controlled ventricular rate: Status: Acute (2) Suicidal ideation: Status: Acute (3) Depression: Status: Acute (4) Elevated troponin: Status: Acute (5) HTN (hypertension): Status: Acute Assessment and Plan: 79-year-old female with past medical history of depression anxiety and hypertension who presents to the hospital after a suicidal attempt found to have atrial fibrillation with controlled ventricular rate. # new onset AFib--rate is controlled on Metoprolol -Xarelto for anticoagulation at 15 mg daily -Echo tody -Cardiology evaluating # suicidal attempt - unclear how many pills she took or what she took because she is refusing to report but according to her she took 1 pill of Tylenol will pill of Aleve - patient reports no suicidal ideation at this time Plan: -JEANNETTE ragsdale # hypertension - stable - continue amlodipine, lisinopril, metoprolol # Depression anxiety - psychiatry on consult - management per Psychiatry DVT prophylaxis: Xarelto
--- NOTE | 2020-02-27 16:45 | CA_ITS ---
Transthoracic Echocardiogram Patient (Last, First, Middle): Tereza Joe A Gender: Female Date of : 1940 Age: 79 Procedure Date: 02/27/2020 Procedure Type: Transthoracic Echocardiogram [place] [facility] [place]: 152.4 cm Weight: 54.43 kg BSA: 1.50 m2 Heart Rate: bpm BP: 135 / 71 mmHg [employer] Supervisor: Referring MD: Sandee SPEAR Symptoms: pt with new onset a fibrillation Dr. Reynaga requested Study Quality: Fair ECG Rhythm: Atrial Fibrillation Conclusions: - The left ventricular systolic function is low normal. The visually estimated ejection fraction is between 50-55%. - There is mildly decreased right ventricular systolic function. - There is mild aortic valve regurgitation. Findings Left Ventricle Normal left ventricular cavity size. There is mildly increased left ventricular wall thickness. The left ventricular systolic function is low normal. The visually estimated ejection fraction is between 50-55%. Diastolic function is indeterminate on the basis of available data. Right Ventricle Normal right ventricular cavity size. There is mildly decreased right ventricular systolic function. Atria The left atrium is mildly dilated. The right atrium is normal in size. Aortic Valve There is a normal trileaflet aortic valve. There is no aortic valve stenosis. There is mild aortic valve regurgitation. Mitral Valve There is mild mitral annular calcification. There is trace mitral valve regurgitation. There is no mitral valve stenosis. Pulmonic Valve The pulmonic valve was not well visualized. Tricuspid Valve Normal tricuspid valve structure. There is trace tricuspid valve regurgitation. The pulmonary artery systolic pressure is normal. Great Vessels The aortic annulus, sinuses of valsalva, and asc aorta are normal in size. Venous The inferior vena cava is normal in size and collapses greater than 50% with inspiration. Pericardium/Pleural There is no evidence of pericardial effusion. Prior Study Comparison No prior study available for comparison. Measurements 2D Linear Measurements IVSd: 1.45 0.6-0.9/0.6-1.0 cm LVIDd: 3.62 3.9-5.3/4.2-5.9 cm LVIDd Index: 2.41 2.4-3.2/2.2-3.1 cm/m2 LVIDs: 2.46 2.0-3.6 cm LVPWd: 1.45 0.7-1.1 cm Ao Root: 3.20 2.1-3.5 cm LA Diam: 4.30 2.7-3.8/3.0-4.0 cm LAIDs Index: 2.87 1.5-2.3 cm/m2 LV Mass: 238.92 67-162/88-224 g LV Mass Index: 159.28 43-95/49-115 g/m2 LVOT Diam: 2.00 3.0+(-)1.3 cm 2D Systolic Function EF 4C: 48.30 >55% EF 2C: 44.10 >55% Mitral Valve MV Pk E: 0.87 MV Decel Time: 134.00 E'Lateral: 8.03 E'Medial: 6.77 E/E' Med: 12.90 E/E' Lat: 10.90 PHT: 39.00 MVA PHT: 5.64 Decel Hardeman: 6.53 Aortic Valve AoV Pk Claude: 1.32 AoV Mn Claude: 0.79 AoV VTI: 0.21 AoV Pk Grad: 7.00 Aov Mn Grad: 3.00 GEOVANNA Cont.VTI: 2.26 LVOT LVOT Pk Claude: 0.81 LVOT Mn Claude: 0.48 LVOT VTI: 0.15 LVOT Pk Grad: 3.00 LVOT Mn Grad: 1.00 LVOT Diam: 2.00 LVOT Area: 3.14 Diastolic Function MV Pk E: 0.87 E'Medial: 6.77 E/E' Med: 12.90 E' Laterial: 8.03 E/E' Lat: 10.90 Tricuspid Valve TR Pk Claude: 2.26 TR Pk Grad: 20.00 Great Vessels Aorta Ao Root-2D: 3.20 2.0-3.7 cm Ao Asc: 3.40 2.1-3.4 cm Pulmonary Valve PV Pk Claude: 0.91 Peak PV Grad: 3.00 Updated in Other Vendor System with Status of Final Kam Reynaga MD electronically signed on 02/27/2020 12:50:36 PM with status of Final
[2020-02-27] MEDS: Acetaminophen 325 MG TABLET 650 MG PO (17:19)
[2020-02-28] VITALS (9 sets, daily range): BP systolic 92–164; BP diastolic 63–100; PULSE 65–110; RESP 18–20; TEMP 36.4–36.9; O2SAT 96–98
[2020-02-28] MEDS: Acetaminophen 325 MG TABLET 650 MG PO ×2 (05:46→20:16)
[2020-02-28] MEDS: cefTRIAXone sodium 1 GM in 0.9 % Sodium Chloride 50 ML IV (05:47)
--- NOTE | 2020-02-28 06:02 | PC.NURSE ---
Patient had a 3 beat VTACH at 0550, asymptomatic. MD notified, will continue to monitor.
[2020-02-28] MEDS: 0.9 % Sodium Chloride Flush 3 ML SYRINGE IVFLUSH ×3 (08:55→22:10)
[2020-02-28] MEDS: Sertraline HCL 50 MG TABLET PO (08:58)
[2020-02-28] MEDS: Omeprazole 20 MG CAPSULE.DR PO (08:58)
[2020-02-28] MEDS: Aspirin 81 MG TAB.CHEW PO (08:58)
[2020-02-28] MEDS: Metoprolol Succinate ER 50 MG TAB.ER.24H PO (08:59)
--- NOTE | 2020-02-28 10:26 | P.PNIM_ITS ---
Subjective Subjective Date of Service: 02/28/20 Interval History: Seen in f/u for afib with RVR . . Feels fine, no palpitation and denies SI, went back into AF with RVR ROS: no chest pain, no dizziness, no suicide ideation Physical Exam Vital Signs: Vital Signs: Last Vital Signs Temp 98.2 F 02/28/20 08:00 Pulse 87 02/28/20 08:59 Resp 20 02/28/20 08:00 BP 92/63 02/28/20 08:59 Pulse Ox 98 02/28/20 08:00 Body Mass Index 23.4 Const: General: cooperative and no acute distress Orientation/consciousness: patient oriented x3 Resp: Effort & Inspection: normal respiratory effort and able to speak in complete sentences Cardio: Rate: regular rate Rhythm: regular rhythm GI: Palpation (GI): Soft to palpation Auscultation: normal bowel sounds Skin: General skin exam: no rashes or lesions noted Neuro: General: patient oriented x3 Cognition (Neuro): normal cognition Objective Data Current Medications Generic Name Dose Route Start Last Admin Trade Name Tomásq PRN Reason Stop Dose Admin Acetaminophen 650 mg 02/26/20 23:29 02/28/20 05:46 Acetaminophen 325 Mg Tablet PO 650 mg Q6H PRN Administration Pain, Mild (Pain Scale 1-3) Amlodipine Besylate 10 mg 02/27/20 09:00 02/28/20 09:00 Amlodipine Besylate 10 Mg Tablet PO Not Given DAILY [facility] Protocol Aspirin 81 mg 02/27/20 09:00 02/28/20 08:58 Aspirin 81 Mg Tab.Chew PO 81 mg DAILY LINDSAY Administration Docusate Sodium 100 mg 02/26/20 23:29 Docusate Sodium 100 Mg Capsule PO DAILY PRN Constipation Ceftriaxone Sodium 1 gm/ 50 mls @ 100 mls/hr 02/27/20 06:00 02/28/20 06:20 Sodium Chloride IV Infused Q24H LINDSAY Infusion Lisinopril 40 mg 02/27/20 09:00 02/28/20 09:00 Lisinopril 40 Mg Tablet PO Not Given DAILY [facility] Protocol Metoprolol Succinate 50 mg 02/28/20 09:00 02/28/20 08:59 Metoprolol Succinate Er 50 Mg Tab.Er.24h PO 50 mg DAILY LINDSAY Administration Protocol Omeprazole 20 mg 02/27/20 09:00 02/28/20 08:58 Omeprazole 20 Mg Capsule. PO 20 mg DAILY LINDSAY Administration Ondansetron HCl 4 mg 02/26/20 23:29 Ondansetron Hcl 4 Mg/2 Ml Vial IVPUSH Q8H PRN Nausea and Vomiting Rivaroxaban 15 mg 02/27/20 00:45 02/27/20 16:21 Rivaroxaban 15 Mg Tablet PO 15 mg DAILY@1700 LINDSAY Administration Sertraline HCl 50 mg 02/27/20 09:00 02/28/20 08:58 Sertraline Hcl 50 Mg Tablet PO 50 mg DAILY LINDSAY Administration Sodium Chloride 3 ml 02/27/20 00:00 02/28/20 08:55 0.9 % Sodium Chloride Flush 3 Ml Syringe IVFLUSH 3 ml QSHIFT LINDSAY Administration Trazodone HCl 25 mg 02/27/20 00:36 02/27/20 22:16 Trazodone Hcl 25 Mg Halftab PO 25 mg BEDTIME PRN Administration Insomnia Labs CBC & Chem 7: 02/27/20 04:51 02/27/20 04:51 Microbiology Microbiology Results: Microbiology 02/26/20 16:58 Urine clean catch - Clean Catch Midstream Urine Culture - Preliminary No growth to date. Assessment and Plan (1) Atrial fibrillation with controlled ventricular rate: Status: Acute (2) Suicidal ideation: Status: Acute (3) Depression: Status: Acute (4) Elevated troponin: Status: Acute (5) HTN (hypertension): Status: Acute Assessment and Plan: 79-year-old female with past medical history of depression anxiety and hypertension who presents to the hospital after a suicidal attempt found to have atrial fibrillation with controlled ventricular rate. # new onset AFib--back into RVR this morning. -will check with cardio about adding dig -continue Metoprolol -Xarelto for anticoagulation at 15 mg daily -Echo pending -Cardiology evaluating # suicidal attempt--patient said she din't take pills for suicide. BHN cleared her # hypertension--BP is on low side this morning. Hold Lisinopril and Norvasc and monitor # Depression anxiety--Continue Sertraline DVT prophylaxis: Xarelto
--- NOTE | 2020-02-28 12:32 | P.PNCA_ITS ---
Subjective Subjective Date of Service: 02/28/20 Interval history: She states that she feels okay. Some palpitations intermittently but otherwise no specific concerns. Review of Systems Review of Systems Yes all other systems are reviewed and are negative Cardiovascular: Reports as per HPI, Reports no additional cardiovascular co mplaints, Denies chest pain, Denies chest pain at rest, Denies syncope, Denies lightheadedness, Reports palpitations, Denies dyspnea and Denies dyspnea on exertion Respiratory: Denies dyspnea and Denies dyspnea on exertion Denies syncope Endocrine: Reports palpitations Physical Exam Vital Signs: Last Vital Signs Temp 97.6 F 02/28/20 12:00 Pulse 85 02/28/20 12:00 Resp 20 02/28/20 12:00 BP 103/65 02/28/20 12:00 Pulse Ox 98 02/28/20 12:00 Body Mass Index 23.4 Const General: cooperative, comfortable and no acute distress Orientation/consciousness: patient oriented x3 HENMT Other: Unremarkable Neck Neck: Yes normal visual inspection Chest Chest palpation & inspection: normal inspection of the chest Resp Auscultation: clear to auscultation bilaterally, no crackles and no wheezes Cardio Jugular venous distension: no JVD Palpation: normal PMI Heart sounds: S1 normal heart sound present, S2 normal heart sound present, no gallops, no murmurs and no rubs GI Palpation (GI): Soft to palpation Back/Spine/Pelvis Other: unremarkable Skin General skin exam: no rashes or lesions noted Neuro General: patient oriented x3 Extrem General: Yes no clubbing, cyanosis or edema Psych Mental Status: mental status grossly normal Results Labs and Meds Result diagrams: 02/27/20 04:51 02/27/20 04:51 Progress Note: A&P Assessment and plan (1) Atrial fibrillation with rapid ventricular response: Status: Acute (2) Essential hypertension: Status: Acute (3) Elevated troponin: Status: Acute Assessment and Plan: Newly detected atrial fibrillation of uncertain duration. Patient does have some symptoms of palpitations. On telemetry, her rhythm is atrial fibrillation with some PVCs. There are some rapid rates but otherwise in the 90-100/Min. Slightly elevated troponin is most likely from the atrial fibrillation itself. Echocardiogram with preserved LVEF. Her beta-link dose has been increased. We can also add digoxin. We can hold her other blood pressure medicines as the blood pressure is on the lower side today. Otherwise she is on Xarelto but the dose is somewhat confusing as the creatinine clearance is less than 50 but the GFR is greater than 60. Hence I am not clear if the Xarelto dose should be 15 or 20 mg. We can rather switch her to Eliquis whose dose to be more definitive at 5 mg b.i.d.. Can stop Aspirin too. Fall Risk Details Current Medications: Current Medications Generic Name Dose Route Start Last Admin Trade Name Daina PRN Reason Stop Dose Admin Acetaminophen 650 mg 02/26/20 23:29 02/28/20 05:46 Acetaminophen 325 Mg Tablet PO 650 mg Q6H PRN Administration Pain, Mild (Pain Scale 1-3) Amlodipine Besylate 10 mg 02/27/20 09:00 02/28/20 09:00 Amlodipine Besylate 10 Mg Tablet PO Not Given DAILY LINDSAY Protocol Aspirin 81 mg 02/27/20 09:00 02/28/20 08:58 Aspirin 81 Mg Tab.Chew PO 81 mg DAILY LINDSAY Administration Docusate Sodium 100 mg 02/26/20 23:29 Docusate Sodium 100 Mg Capsule PO DAILY PRN Constipation Ceftriaxone Sodium 1 gm/ 50 mls @ 100 mls/hr 02/27/20 06:00 02/28/20 06:20 Sodium Chloride IV Infused Q24H LINDSAY Infusion Lisinopril 40 mg 02/27/20 09:00 02/28/20 09:00 Lisinopril 40 Mg Tablet PO Not Given DAILY LINDSAY Protocol Metoprolol Succinate 50 mg 02/28/20 09:00 02/28/20 08:59 Metoprolol Succinate Er 50 Mg Tab.Er.24h PO 50 mg DAILY LINDSAY Administration Protocol Omeprazole 20 mg 02/27/20 09:00 02/28/20 08:58 Omeprazole 20 Mg Capsule.Dr PO 20 mg DAILY LINDSAY Administration Ondansetron HCl 4 mg 02/26/20 23:29 Ondansetron Hcl 4 Mg/2 Ml Vial IVPUSH Q8H PRN Nausea and Vomiting Rivaroxaban 15 mg 02/27/20 00:45 02/27/20 16:21 Rivaroxaban 15 Mg Tablet PO 15 mg DAILY@1700 LINDSAY Administration Sertraline HCl 50 mg 02/27/20 09:00 02/28/20 08:58 Sertraline Hcl 50 Mg Tablet PO 50 mg DAILY LINDSAY Administration Sodium Chloride 3 ml 02/27/20 00:00 02/28/20 08:55 0.9 % Sodium Chloride Flush 3 Ml Syringe IVFLUSH 3 ml QSHIFT LINDSAY Administration Trazodone HCl 25 mg 02/27/20 00:36 02/27/20 22:16 Trazodone Hcl 25 Mg Halftab PO 25 mg BEDTIME PRN Administration Insomnia Time Spent With Patient Time: Total time spent is greater than 50% in coordination of care (as doc umented) at patient's floor/unit and/or counseling patient: Time with patient: less than 15 minutes
[2020-02-28] MEDS: Digoxin 0.125 MG TABLET PO ×2 (15:18→17:12)
[2020-02-28] MEDS: Apixaban 2.5 MG TABLET PO (20:16)
[2020-02-28] MEDS: traZODone HCL 25 MG HALFTAB PO (21:53)
[2020-02-29 04:00] VITALS: BP 151/72; PULSE 86; RESP 18; TEMP 36.9; O2SAT 97
[2020-02-29] MEDS: cefTRIAXone sodium 1 GM in 0.9 % Sodium Chloride 50 ML IV (05:14)
[2020-02-29 08:00] VITALS: BP 100/72; PULSE 92; RESP 20; TEMP 36.8; O2SAT 97
[2020-02-29] MEDS: Apixaban 2.5 MG TABLET PO (09:08)
[2020-02-29] MEDS: 0.9 % Sodium Chloride Flush 3 ML SYRINGE IVFLUSH (09:08)
[2020-02-29] MEDS: Aspirin 81 MG TAB.CHEW PO (09:09)
[2020-02-29 09:10] VITALS: BP 100/72; PULSE 92
[2020-02-29] MEDS: Sertraline HCL 50 MG TABLET PO (09:10)
[2020-02-29] MEDS: lisinopriL 40 MG TABLET PO (09:10)
[2020-02-29] MEDS: amLODIPine Besylate 10 MG TABLET PO (09:10)
[2020-02-29] MEDS: Metoprolol Succinate ER 50 MG TAB.ER.24H PO (09:10)
[2020-02-29] MEDS: Omeprazole 20 MG CAPSULE.DR PO (09:10)
--- NOTE | 2020-02-29 11:45 | MHC.CM.PN ---
Patient has been medically cleared for dc to home today, no services. Last IMM addressed 02/27/20.
--- NOTE | 2020-02-29 11:56 | P.DS_ITS ---
DS: Providers Provider Date of admission: 02/26/20 19:40 Primary care physician: Lazara Oneill MD Consults: 02/26/20 23:29 Consult to Cardiology Routine Consulting Provider: Adan Downey Reason for consultation: New onset A.fib 02/27/20 12:38 Consult to Crisis Stat Reason for consultation: suicide attemp DS: Diagnosis Discharge Diagnosis (1) Atrial fibrillation with rapid ventricular response: Status: Acute (2) Essential hypertension: Status: Resolved (3) Elevated troponin: Status: Resolved DS: Medications Discharge Medications Home Medications: Home Medications Medication Instructions Recorded Confirmed alendronate 1 tab PO DAILY 02/26/20 02/26/20 amlodipine 1 tab PO DAILY 02/26/20 02/26/20 aspirin 81 mg PO DAILY 02/26/20 02/26/20 lisinopril 1 tab PO DAILY 02/26/20 02/26/20 metoprolol succinate 1 tab PO DAILY 02/26/20 02/26/20 omeprazole 1 cap PO DAILY 02/26/20 02/26/20 sertraline [Zoloft] 50 mg PO DAILY 02/26/20 02/26/20 DS: Summary Hospital Course Hospital Course: Chief Complaint: new onset a.fib Past medical history of hypertension, depression, anxiety who presents to the hospital after a suicidal attempt. Patient initially was going to be admitted directly to [facility] but was found to have AFib on EKG done in the ED. patient is being admitted to the medical team for an echo recommended by Cardiology. She is feeling very depressed, currently not suicidal and wants to go home but reports that she did want to harm herself earlier in the day by ingesting some pills not that many but she is not willing to tell me which pills as she does not know. She has been feeling palpitations for a while she says and points to chest pain that is left-sided, reproducible on palpation of the chest, not associated with any radiation, any shortness of breath, no nausea or vomiting. The chest pain is 3/10, constant, started today, and occurs on any movement and on pressing on her chest. Denies any trauma to the chest. Otherwise denies any headache, change in vision, she is complaining of suprapubic pain, diarrhea constipation, no urinary symptoms and no lower extremity edema. On arrival To the ED hemodynamically stable with no significant abnormal vitals, Labs are significant for WBC count of 9.4, hemoglobin of 13.2, hematocrit 39.1, sodium of 143, potassium 3.2, BUN of 18, creatinine of 0.89, high sensitivity troponin of 21 which improved to 19, BNP of 122 Her UA is positive for leukocyte Estrace and urine WBC COVID-19 negative, imaging including chest x-ray shows interstitial prominence without focal airspace consolidation. Cardiomegaly. No acute intracranial process seen on head CT. Hosptial course # new onset AFib with RVR--Heart rate has been controlled with increasing her toprolol xl to 50 and adding digoxin 0.125 mg daily. She was seen by cardiology (Dr. Cardona). Echo - The left ventricular systolic function is low normal. The visually estimated ejection fraction is between 50-55%. - There is mildly decreased right ventricular systolic function. - There is mild aortic valve regurgitation. Will be on Eliquis for for stroke preventil. # hypertension--BP was on the low side with increasing Metoprolol, so will discontinue Norvasc for now and should be followed up on outpatient cowart # Depression anxiety--Continue Sertraline. There was a question about patient being suicidal or suicide attempt after talking to her, she clearly never in tended to harm hersel and doesn't sucide ideation. She was seen and cleared by N. Time Spent with Patient Time attestation: Total time spent providing and/or coordinating discharge services: Physical Exam Vital Signs: Vital Signs: Last Vital Signs Temp 98.2 F 02/29/20 08:00 Pulse 92 02/29/20 09:10 Resp 20 02/29/20 08:00 BP 100/72 02/29/20 09:10 Pulse Ox 97 02/29/20 08:00 Body Mass Index 23.4 General: AO X 3, no acute distress Resp: CTA bilateral CVS: S1,S2,ireg ireg GI: +BS, NT, no distention Skin: No rash Neuro: motor grossly intact Psych: appropriate affect DS: Data Data Completed and Pending Labs on day of discharge: 02/26/20 14:45 ECG 12 lead EKG Stat EKG Documentation DIRECTED CT head/brain wo con Stat XR chest 2V Stat 02/26/20 15:52 Add Laboratory Test Stat 02/26/20 16:00 Acetaminophen LAB Stat Basic Metabolic Panel Stat Liver Panel Stat Magnesium Stat Salicylate Stat Thyroid Stimulating Hormone Stat 02/26/20 16:01 B Type Natriuretic Peptide Stat Complete Blood Count Auto Diff Stat Ethanol Stat Hold Lav - Possible Hematology Stat Prothrombin Time INR Stat Troponin-I High Sensitivity Stat 02/26/20 16:20 ECG 12 lead EKG Stat EKG Documentation DIRECTED 02/26/20 16:33 SARS-CoV2/FLU/RSV Stat 02/26/20 16:58 Urine Culture Routine 02/26/20 19:02 Troponin-I High Sensitivity Stat 02/26/20 19:16 Add Laboratory Test Stat 02/26/20 19:31 Transfer Order Routine 02/27/20 00:36 oxyCODONE HCl Immed Release [Roxicodone] 5 mg PO ONCE ONE 02/27/20 00:45 Rivaroxaban [Xarelto] 15 mg PO DAILY@1700 02/27/20 04:51 Basic Metabolic Panel Routine Complete Blood Count Auto Diff Routine 02/27/20 06:02 cefTRIAXone sodium [Rocephin] 1 gm .ROUTE .STK-MED ONE 02/27/20 09:00 Metoprolol Succinate ER [Toprol XL] 25 mg PO DAILY alendronate 1 tab PO DAILY 02/27/20 11:09 Metoprolol Succinate ER [Toprol XL] 25 mg PO ONCE ONE 02/27/20 16:45 CA echo transthoracic complete Routine 02/28/20 05:43 cefTRIAXone sodium [Rocephin] 1 gm .ROUTE .STK-MED ONE 02/28/20 13:00 Digoxin [Lanoxin] 0.125 mg PO Q6H 02/29/20 05:05 cefTRIAXone sodium [Rocephin] 1 gm .ROUTE .STK-MED ONE Laboratory Last Values WBC 8.9 X10*3/uL (4.8-10.8) 02/27/20 04:51 RBC 4.23 X10*6/uL (4.20-5.50) 02/27/20 04:51 Hgb 12.8 g/dl (12.0-16.0) 02/27/20 04:51 Hct 37.8 % (37-47) 02/27/20 04:51 MCV 89.4 fL (80-98) 02/27/20 04:51 MCH 30.3 pg (27.0-33.0) 02/27/20 04:51 MCHC 33.9 g/dl (31.0-35.0) 02/27/20 04:51 RDW 13.8 % (11.0-16.0) 02/27/20 04:51 Plt Count 247 X10*3/uL (160-400) 02/27/20 04:51 MPV 11.0 fL (9.4-12.3) 02/27/20 04:51 Immature Gran % (Auto) 0.3 % (0.0-0.4) 02/27/20 04:51 Neut % (Auto) 67.0 % (45-73) 02/27/20 04:51 Lymph % (Auto) 25.9 % (20-40) 02/27/20 04:51 Knott % (Auto) 5.5 % (2-11) 02/27/20 04:51 Eos % (Auto) 0.8 % (0-4) 02/27/20 04:51 Baso % (Auto) 0.5 % (0-2) 02/27/20 04:51 Lymph # (Auto) 2.3 X10*3/uL (1.2-4.9) 02/27/20 04:51 Knott # (Auto) 0.5 X10*3/uL (0.1-1.2) 02/27/20 04:51 Eos # (Auto) 0.1 X10*3/uL (0.0-0.4) 02/27/20 04:51 Baso # (Auto) 0.0 X10*3/uL (0.0-0.2) 02/27/20 04:51 Abs Immat Gran (auto) 0.03 X10*3/uL (0.00-0.03) 02/27/20 04:51 Absolute Neuts (auto) 5.9 X10*3/uL (2.0-8.3) 02/27/20 04:51 Absolute Nucleated RBC 0.000 X10*3/uL (0.0-0.012) 02/27/20 04:51 Nucleated RBC % (auto) 0.0 /100WBC (0.0-0.2) 02/27/20 04:51 Hold Purple Top SEE NOTE 02/26/20 16:01 PT 12.4 SEC (10.8-13.0) 02/26/20 16:01 INR 1.0 (0.9-1.1) 02/26/20 16:01 Sodium 144 mmol/L (135-145) 02/27/20 04:51 Potassium 3.0 mmol/l (3.3-5.1) L 02/27/20 04:51 Chloride 107 mmol/L (96-108) 02/27/20 04:51 Carbon Dioxide 25 mmol/L (22-29) 02/27/20 04:51 Anion Gap 15 (12-20) 02/27/20 04:51 BUN 14 mg/dL (9-16) 02/27/20 04:51 Creatinine 0.72 mg/dL (0.5-1.4) 02/27/20 04:51 Estim Creat Clear Calc 44.7 02/27/20 04:51 Estimated GFR > 60 02/27/20 04:51 Random Glucose 100 mg/dL (60-115) 02/27/20 04:51 Calcium 9.1 mg/dL (8.4-10.2) 02/27/20 04:51 Magnesium 2.1 mg/dL (1.6-2.6) 02/26/20 16:00 Total Bilirubin 0.2 mg/dL (0.0-1.0) 02/26/20 16:00 Direct Bilirubin 0.2 mg/dL (0.0-0.5) 02/26/20 16:00 AST 14 U/L (5-31) 02/26/20 16:00 ALT 18 U/L (0-31) 02/26/20 16:00 Alkaline Phosphatase 61 U/L (39-117) 02/26/20 16:00 Troponin I High Sens 19.1 ng/L (<3.5-17.0) H 02/26/20 19:02 B-Natriuretic Peptide 122 pg/mL (<100) H 02/26/20 16:01 Total Protein 7.0 g/dL (6.5-8.0) 02/26/20 16:00 Albumin 4.1 g/dL (3.5-5.0) 02/26/20 16:00 TSH 1.83 uIU/mL (0.32-4.0) 02/26/20 16:00 Urine Color YELLOW 02/26/20 16:49 Urine Appearance CLEAR 02/26/20 16:49 Urine pH 6.5 (5.0-8.0) 02/26/20 16:49 Ur Specific [place] 1.015 (1.005-1.025) 02/26/20 16:49 Urine Protein NEG MG/DL (NEG-TRACE) 02/26/20 16:49 Urine Glucose (UA) NEG MG/DL (NEG) 02/26/20 16:49 Urine Ketones NEG MG/DL (NEG) 02/26/20 16:49 Urine Blood NEG (NEG) 02/26/20 16:49 Urine Nitrite NEG (NEG) 02/26/20 16:49 Ur Leukocyte Esterase TRACE (NEG) H 02/26/20 16:49 Urine RBC 0 /HPF (0) 02/26/20 16:49 Urine WBC 5-9 /HPF (0-4) H 02/26/20 16:49 Ur Squamous Epith Cells 2+ /LPF 02/26/20 16:49 Urine Bacteria 1+ /LPF 02/26/20 16:49 Salicylates < 5.0 mg/dL (15-30) L 02/26/20 16:00 Acetaminophen < 1 mcg/mL (<30) 02/26/20 16:00 Ethyl Alcohol < 10 mg/dL 02/26/20 16:01 Coronavirus (PCR) NEGATIVE (Negative) 02/26/20 16:33 Influenza Type A (PCR) NEGATIVE (Negative) 02/26/20 16:33 Influenza Type B (PCR) NEGATIVE (Negative) 02/26/20 16:33 RSV RNA Qual (PCR) NEGATIVE (Negative) 02/26/20 16:33 Discharge Plan Discharge Anticipated Discharge Date/Time: 02/29/20 11:28 Patient Disposition: Home, Self-Care Referrals: Lazara Oneill MD [Primary Care Provider] - Discharge Medications: New cefuroxime axetil 250 mg tablet 250 mg PO BID Qty: 6 RF: 0 Continued alendronate 10 mg tablet 1 tab PO DAILY RF: 0 sertraline [Zoloft] 25 mg tablet 50 mg PO DAILY RF: 0 omeprazole 20 mg capsule,delayed release(DR/EC) 1 cap PO DAILY RF: 0 Discontinued amlodipine 10 mg tablet 1 tab PO DAILY RF: 0 metoprolol succinate 25 mg tablet extended release 24 hr 1 tab PO DAILY RF: 0 No Action lisinopril 10 mg tablet 10 mg PO DAILY RF: 0 metoprolol tartrate 100 mg tablet 100 mg PO BID RF: 0 amlodipine 10 mg tablet 10 mg PO DAILY RF: 0 gabapentin 300 mg capsule 300 mg PO TID RF: 0 tramadol 50 mg tablet PO RF: 0 digoxin 125 mcg (0.125 mg) tablet 125 mcg PO DAILY RF: 0 Discharge Orders: Discharge Order (Routine); Ordered 02/29/20 Ordered By: Nimesh Light Diet: advance to usual diet Activity on Discharge: As tolerated Visit Report Forms: Patient Portal Discharge page Care Plan Goals: Control of heart rate Health Concerns: Atrial fibriliation Plan of Treatment: Take all medication as recommended and follow up with your Doctor in a week Discharge Date/Time: 02/29/20 13:13
== END 2020-02-29 13:13 | disposition home or self-care (01) | DRG 309 ==
LOC: HO.ED 17:36 → HO.IMC 20:12
PROVIDERS: Physician Assistant Medical; Admitting Provider Internal Medicine; Emergency Provider Emergency Medicine; PCP Internal Medicine; Visit Provider Internal Medicine
DX: I48.91 Unspecified atrial fibrillation (principal); R45.851 Suicidal ideations; F32.9 Major depressive disorder, single episode, unspecified; K21.9 Gastro-esophageal reflux disease without esophagitis; F41.9 Anxiety disorder, unspecified; I10 Essential (primary) hypertension; Z91.5 Personal history of self-harm; Z20.828 Contact with and (suspected) exposure to other viral communicable diseases; Z23 Encounter for immunization; Z79.01 Long term (current) use of anticoagulants; Z79.82 Long term (current) use of aspirin; Z79.899 Other long term (current) drug therapy
CPT/HCPCS: 0241U; 36415; 70450; 71046; 80048; 80076; 80320; 81001; 83735; 83880; 84443; 84484; 85025; 85610; 87086; 93005; 93306; 99285; 99291; G0480; J0696

== ENCOUNTER 2020-02-29 22:06 | Emergency (ER) | payer MEDICARE, OTHER, SELFPAY ==
--- NOTE | 2020-02-29 | XR_ITS ---
EXAMINATION: XR CHEST CLINICAL INFORMATION: Syncope COMPARISON: Chest x-ray February 26, 2020 TECHNIQUE: Frontal portable view of the chest was obtained. 11:06 PM FINDINGS: Heart size mildly enlarged. There are vascular wall calcifications of the aorta. Mild prominence of the central hilar pulmonary vessels again demonstrated unchanged since prior chest x-ray. No overt pulmonary edema. No focal consolidation or large pleural effusions. XR/XR chest 1V IMPRESSION: Cardiomegaly. No change of the mild central hilar pulmonary vascular prominence since February 26, 2020. No focal airspace opacities.
[2020-02-29 22:42] VITALS: BP 150/73; PULSE 94; RESP 16; TEMP 36.7; O2SAT 95; BMI 19.3
--- NOTE | 2020-02-29 22:42 | ECG_ITS ---
Test Reason : SYNCOPY Blood Pressure : / mmHG Vent. Rate : 098 BPM Atrial Rate : 138 BPM P-R Int : 000 ms QRS Dur : 112 ms QT Int : 362 ms P-R-T Axes : 000 -49 117 degrees QTc Int : 462 ms Atrial fibrillation with premature ventricular or aberrantly conducted complexes Left anterior fascicular block ST & T wave abnormality, consider lateral ischemia Abnormal ECG When compared with ECG of 26-FEB-2020 16:25, No significant changes seen Referred By: Generic ED Physician Electronically Signed By:Jamie Cardona
--- NOTE | 2020-02-29 22:55 | ED.SYNCOPE ---
HPI - Syncope General Chief Complaint: Syncope Stated Complaint: syncope fall Time Seen by Provider: 02/29/20 22:55 Source: patient Mode of arrival: EMS History of Present Illness HPI narrative: Than 79-year-old female who states that when she went to get up from her chair this evening he became sweaty, nauseous and her had to help her to bed where she states she ?passed out?. She denies hitting her head and currently is complaining of spinal pain but denies any hip or leg discomfort as well as no chest wall pain. Related Data Home Medications Medication Instructions Recorded Confirmed alendronate 1 tab PO DAILY 02/26/20 02/26/20 aspirin 81 mg PO DAILY 02/26/20 02/26/20 lisinopril 1 tab PO DAILY 02/26/20 02/26/20 omeprazole 1 cap PO DAILY 02/26/20 02/26/20 sertraline [Zoloft] 50 mg PO DAILY 02/26/20 02/26/20 Previous Rx's Medication Instructions Recorded apixaban [Eliquis] 2.5 mg PO BID #60 tab 02/29/20 cefuroxime axetil 250 mg PO BID #6 tab 02/29/20 digoxin 125 mcg PO DAILY #30 tab 02/29/20 metoprolol succinate 50 mg PO DAILY #30 tab 02/29/20 Allergies Allergy/AdvReac Type Severity Reaction Status Date / Time No Known Allergies Allergy Verified 02/26/20 14:17 Review of Systems Review of Systems: Pertinent positives and negatives as stated in HPI 10 point review of systems otherwise negative. FORMERLY [facility] Past Medical History Source: nursing notes reviewed Medical History (Updated 03/01/20 @ 00:35 by Maggie Stack MD) Anxiety Atrial fibrillation with controlled ventricular rate Depression GERD (gastroesophageal reflux disease) HTN (hypertension) Social History Social History Household Members: Spouse Housing: House Alcohol intake: former Smoking Status: Never smoker Advance Directives: No service: No Current occupational status: retired Physical Exam Vital Signs: Vital Signs: Last Vital Signs Temp 98.1 F 02/29/20 22:42 Pulse 95 02/29/20 23:59 Resp 17 02/29/20 23:59 BP 130/62 02/29/20 23:59 Pulse Ox 97 02/29/20 23:59 Body Mass Index 19.3 VITAL SIGNS: Reviewed. GENERAL: Well developed, well nourished, in no acute distress. HEAD: Normocephalic/atraumatic, EYES: PERRLA, EOMI intact without pain, no nystagmus/pallor/icterus noted EARS: Ext canals without abnormality, TMs non-bulging and non-erythematous NOSE: Nares patent bilateral OROPHARYNX: no oral lesions noted, posterior pharynx clear and non-erythematous without noted tonsillar enlargement/erythema/exudates NECK: Supple, no adenopathy LUNGS: Normal breath sounds. No adventitious sounds or accessory muscle use. SpO2<95> BACK: Tenderness to palpation along the T11 through T12, no neurological deficits noted in bilateral lower extremities. CARDIOVASCULAR: Regular rate and rhythm without noted murmurs, no JVD or lower extremity edema. ABDOMEN: Soft, non-tender, non-distended with bowel sounds. No rigidity. No guarding. No palpable masses or hernias noted MUSCULOSKELETAL: No tenderness, deformities, or effusions noted on gross inspection. EXTREMITIES: No cyanosis, clubbing or edema. SKIN: Inspection of the skin reveals no rashes, ulcerations, jaundice, pallor, or petechiae. NEUROLOGIC: Alert and oriented x 4. GCS-15. Strength and sensation to light touch were grossly intact x 4. Course Course Course Narrative: This is an 79-year-old female with history and clinical presentation most consistent with vasovagal syncope and will rule out intracranial hemorrhages patient has been recently started on anticoagulation as well as assessment thoracic and lumbar spine. No evidence of pelvic or lower extremity/upper extremity deformities patient able to all extremities and gentle palpation of the anterior chest wall is otherwise negative. All investigations reviewed and most consistent with likely vasovagal syncopal episode and there are no noted arrhythmias other than known atrial fibrillation which is otherwise rate controlled. Tdap was administer and all the other is a noted leukocytosis there is no noted evidence for this on abdominal exam, and chest x-ray is negative for evidence of infiltrate. Suspect that the leukocytosis may be a stress response due to the traumatic fall. Patient will be scanned CT of chest and Abdo as well as COVID-19 swab. All imaging was pushed down to [facility]. Patient was transferred in stable condition. Reevaluation(s) Reevaluation #1: [facility] called to inform that patient has right-sided rib fractures involving the 7th through 12th ribs. Displacement of multiple rib fractures resulting in a small right-sided pneumothorax and hemothorax. In addition, there is a noted contusion right lower lobe. Time: 00:02 Reevaluation #2: I discussed this case with [facility], Dr. Quiroga, who is accepting the patient. Time: 00:20 MDM - Syncope Differential Diagnosis Differential diagnosis: Likely vasovagal syncope Lab Data Result diagrams: 03/01/20 00:16 03/01/20 00:16 Labs: Lab Results 03/01/20 03/01/20 03/01/20 Range/Units 00:15 00:16 00:16 WBC 17.9 H (4.8-10.8) X10*3/uL RBC 4.18 L (4.20-5.50) X10*6/uL Hgb 12.7 (12.0-16.0) g/dl Hct 37.4 (37-47) % MCV 89.5 (80-98) fL MCH 30.4 (27.0-33.0) pg MCHC 34.0 (31.0-35.0) g/dl RDW 13.8 (11.0-16.0) % Plt Count 263 (160-400) X10*3/uL MPV 11.1 (9.4-12.3) fL Immature Gran % (Auto) 0.7 H (0.0-0.4) % Neut % (Auto) 90.5 H (45-73) % Lymph % (Auto) 5.1 L (20-40) % [place] % (Auto) 3.4 (2-11) % Eos % (Auto) 0.1 (0-4) % Baso % (Auto) 0.2 (0-2) % Lymph # (Auto) 0.9 L (1.2-4.9) X10*3/uL [place] # (Auto) 0.6 (0.1-1.2) X10*3/uL Eos # (Auto) 0.0 (0.0-0.4) X10*3/uL Baso # (Auto) 0.0 (0.0-0.2) X10*3/uL Abs Immat Gran (auto) 0.12 H (0.00-0.03) X10*3/uL Absolute Neuts (auto) 16.2 H (2.0-8.3) X10*3/uL Absolute Nucleated RBC 0.000 (0.0-0.012) X10*3/uL Nucleated RBC % (auto) 0.0 (0.0-0.2) /100WBC Smear Tech's Comments VERIFIED PT 16.2 H D (10.8-13.0) SEC INR 1.4 H (0.9-1.1) APTT 32.6 (24.1-38.0) SEC Sodium (135-145) mmol/L Potassium (3.3-5.1) mmol/l Chloride (96-108) mmol/L Carbon Dioxide (22-29) mmol/L Anion Gap (12-20) BUN (9-16) mg/dL Creatinine (0.5-1.4) mg/dL Estim Creat Clear Calc Estimated GFR Random Glucose (60-115) mg/dL Calcium (8.4-10.2) mg/dL Total Bilirubin (0.0-1.0) mg/dL Direct Bilirubin (0.0-0.5) mg/dL AST (5-31) U/L ALT (0-31) U/L Alkaline Phosphatase (39-117) U/L Troponin I High Sens (<3.5-17.0) ng/L Total Protein (6.5-8.0) g/dL Albumin (3.5-5.0) g/dL Lipase (8-78) U/L COVID-19 (KYLEE) Negative (Negative) COVID-19 Clin Com See Note 03/01/20 03/01/20 Range/Units 00:16 00:16 WBC (4.8-10.8) X10*3/uL RBC (4.20-5.50) X10*6/uL Hgb (12.0-16.0) g/dl Hct (37-47) % MCV (80-98) fL MCH (27.0-33.0) pg MCHC (31.0-35.0) g/dl RDW (11.0-16.0) % Plt Count (160-400) X10*3/uL MPV (9.4-12.3) fL Immature Gran % (Auto) (0.0-0.4) % Neut % (Auto) (45-73) % Lymph % (Auto) (20-40) % [place] % (Auto) (2-11) % Eos % (Auto) (0-4) % Baso % (Auto) (0-2) % Lymph # (Auto) (1.2-4.9) X10*3/uL [place] # (Auto) (0.1-1.2) X10*3/uL Eos # (Auto) (0.0-0.4) X10*3/uL Baso # (Auto) (0.0-0.2) X10*3/uL Abs Immat Gran (auto) (0.00-0.03) X10*3/uL Absolute Neuts (auto) (2.0-8.3) X10*3/uL Absolute Nucleated RBC (0.0-0.012) X10*3/uL Nucleated RBC % (auto) (0.0-0.2) /100WBC Smear Tech's Comments PT (10.8-13.0) SEC INR (0.9-1.1) APTT (24.1-38.0) SEC Sodium 138 (135-145) mmol/L Potassium 3.5 (3.3-5.1) mmol/l Chloride 99 (96-108) mmol/L Carbon Dioxide 29 (22-29) mmol/L Anion Gap 14 (12-20) BUN 35 H D (9-16) mg/dL Creatinine 1.22 (0.5-1.4) mg/dL Estim Creat Clear Calc 31.5 Estimated GFR 42 Random Glucose 193 H D (60-115) mg/dL Calcium 9.4 (8.4-10.2) mg/dL Total Bilirubin 0.3 (0.0-1.0) mg/dL Direct Bilirubin < 0.2 (0.0-0.5) mg/dL AST 26 D (5-31) U/L ALT 29 (0-31) U/L Alkaline Phosphatase 61 (39-117) U/L Troponin I High Sens 25.8 H (<3.5-17.0) ng/L Total Protein 6.7 (6.5-8.0) g/dL Albumin 4.0 (3.5-5.0) g/dL Lipase 18 (8-78) U/L COVID-19 (KYLEE) (Negative) COVID-19 Clin Com ECG Data Attestation: I personally reviewed and interpreted this ECG as follows: Interpretation: Atrial fibrillation with HR-98, no evidence of acute ischemia, QTC is within normal limits. Discharge Plan Discharge Clinical Impression: Multiple fractures of rib involving four or more ribs, Pneumothorax on right, Hemothorax on right Contusion of right lung Qualifiers: Encounter type: initial encounter Qualified Code(s): S27.321A - Contusion of lung, unilateral, initial encounter Patient Disposition: [facility] Prescriptions: No Action alendronate 10 mg tablet 1 tab PO DAILY RF: 0 sertraline [Zoloft] 25 mg tablet 50 mg PO DAILY RF: 0 omeprazole 20 mg capsule,delayed release(DR/EC) 1 cap PO DAILY RF: 0 lisinopril 40 mg tablet 1 tab PO DAILY RF: 0 aspirin 81 mg Tablet,Chewable 81 mg PO DAILY RF: 0 Eliquis 2.5 mg Tablet 2.5 mg PO BID Qty: 60 RF: 0 metoprolol succinate 50 mg Tablet Extended Release 24 Hr 50 mg PO DAILY Qty: 30 RF: 0 cefuroxime axetil 250 mg tablet 250 mg PO BID Qty: 6 RF: 0 digoxin 125 mcg (0.125 mg) tablet 125 mcg PO DAILY Qty: 30 RF: 0
--- NOTE | 2020-02-29 23:06 | CT_ITS ---
EXAMINATION: CT HEAD WITHOUT CONTRAST CLINICAL INFORMATION: Syncope. On Eliquis COMPARISON: CT head February 26, 2020 TECHNIQUE: Contiguous axial imaging was performed from the skull base to vertex without intravenous administration of contrast. Coronal and sagittal reformatted images are performed at CT scanner This CT examination was performed using dose optimization techniques as appropriate, variously including the following: *Automated exposure control *Adjustment of mA and/or kV according to patient size (this includes techniques or standardized protocols for targeted exams where dose is matched to indication/reason for exam; i.e. extremities or head) *Use of iterative reconstruction technique DLP: 728 mGy-cm FINDINGS: There is no evidence of acute intracranial hemorrhage or territorial infarction. No abnormal mass effect or midline shift is seen. Smith to white matter differentiation is well preserved. No extra-axial fluid collections are identified. There is age-appropriate atrophy with prominence of the ventricles and the sulci and hypodensity of the periventricular white matter due to chronic small vessel ischemic disease. There are vascular calcifications of the internal carotid arteries bilaterally. The osseous structures and soft tissues are normal. Polyps and mucosal thickening at the inferior maxillary sinuses bilateral. The mastoid air cells and middle ear cavities are normally aerated. CT/CT head/brain wo con IMPRESSION: No acute intracranial pathology.
--- NOTE | 2020-02-29 23:06 | CT_ITS ---
EXAMINATION: CT THORACIC SPINE WITHOUT CONTRAST CT LUMBAR SPINE WITHOUT CONTRAST CLINICAL INFORMATION: Fall with pain COMPARISON: None TECHNIQUE: Multidetector volumetric imaging of the thoracic and lumbar spine is performed without IV contrast. Coronal and sagittal reformatted images are obtained and reviewed. This CT examination was performed using dose optimization techniques as appropriate, variously including the following: *Automated exposure control *Adjustment of mA and/or kV according to patient size (this includes techniques or standardized protocols for targeted exams where dose is matched to indication/reason for exam; i.e. extremities or head) *Use of iterative reconstruction technique DLP: 990 mGy-cm FINDINGS: There is no acute fracture or subluxation of the thoracic or lumbar spine. There is slight retrolisthesis of C3 on C4 noted. Vertebral body heights are maintained. The posterior elements are intact. Mild facet arthropathy, greatest at the lumbar spine. There are multiple rib fractures identified. There are posterior fractures of the right seventh, eighth, ninth, 10th, 11th, and 12th ribs. The right eighth rib is fractured laterally as well. Significant displacement of the posterior rib fractures resulting in a small right-sided pneumothorax as well as contusion of the posterior aspect of the right lower lobe. Small right hemothorax. The visualized cardiac structures show coronary artery calcifications. No mediastinal hematoma. The visualized intra-abdominal and intrapelvic structures show no acute abnormality. No acute liver injury is seen. The kidneys are unremarkable. Colonic diverticulosis without diverticulitis. Normal caliber aorta with moderate atherosclerotic calcification. Gas is seen within the soft tissues of the right back, extending along the right paraspinal musculature.. CT/CT thoracic spine wo con IMPRESSION: 1. No acute fracture or malalignment of the thoracolumbar spine. 2. Multiple right-sided rib fractures involving the seventh through 12th ribs. Displacement of multiple rib fractures resulting in a small right-sided pneumothorax and hemothorax. Contusion in the right lower lobe. Associated soft tissue gas. This critical result was discussed with Maggie Stack MD by telephone at 03/01/2020 12:02 AM and it was ascertained that the content and urgency of the report was understood at the time of direct communication.
[2020-02-29 23:59] VITALS: BP 130/62; PULSE 95; RESP 17; O2SAT 97
[2020-03-01 00:22] LABS: Basophils Percent Auto 0.2 % (0-2); Eosinophils Percent Auto 0.1 % (0-4); Hematocrit 37.4 % (37-47); Hemoglobin 12.7 g/dl (12.0-16.0); Imm Gran Abs Auto 0.12 X10*3/uL (0.00-0.03); Imm Gran Pct Auto 0.7 % (0.0-0.4); Lymphocytes Absolute Auto 0.9 X10*3/uL (1.2-4.9); Lymphocytes Percent Auto 5.1 % (20-40); MANUAL DIFF FLAG SCAN; Mean Corpuscular Hemoglobin 30.4 pg (27.0-33.0); Mean Corpuscular Volume 89.5 fL (80-98); Mean Platelet Volume 11.1 fL (9.4-12.3); Monocytes Absolute Auto 0.6 X10*3/uL (0.1-1.2); Monocytes Percent Auto 3.4 % (2-11); Neutrophils Absolute Auto 16.2 X10*3/uL (2.0-8.3); Neutrophils Percent Auto 90.5 % (45-73); Platelet Count 263 X10*3/uL (160-400); Red Blood Count 4.18 X10*6/uL (4.20-5.50); Red Cell Distribution Width 13.8 % (11.0-16.0); SCAN SMEAR FLAG 1; White Blood Count 17.9 X10*3/uL (4.8-10.8)
--- NOTE | 2020-03-01 00:23 | CT_ITS ---
EXAMINATION: CT CHEST WITH CONTRAST CT ABDOMEN AND PELVIS WITH CONTRAST CLINICAL INFORMATION: Fall COMPARISON: Thoracic and lumbar spine CT from 02/29/2020 TECHNIQUE: Multidetector volumetric imaging was performed through the chest, abdomen and pelvis following the administration of 85 mL of Omnipaque 350 intravenous contrast. Sagittal and coronal reformatted images were obtained on the technologist's workstation. Axial MIP volume rendering provided. This CT examination was performed using dose optimization techniques as appropriate, variously including the following: *Automated exposure control *Adjustment of mA and/or kV according to patient size (this includes techniques or standardized protocols for targeted exams where dose is matched to indication/reason for exam; i.e. extremities or head) *Use of iterative reconstruction technique DLP: 1007 mGy-cm. FINDINGS: CHEST: Lungs: The central airways are patent. There is a small right-sided pneumothorax, unchanged from the recent prior imaging. Right apical scarring noted. There is groundglass opacity seen in the dependent right lower lobe, which may represent contusion in this setting. Left basilar atelectasis. There is a tiny right hemothorax. Mediastinum: The heart is prominent. No pericardial effusion. No mediastinal lymphadenopathy. The central vascular structures are unremarkable. The thyroid gland is unremarkable. Chest Wall/Axilla: No lymphadenopathy. No chest wall mass. There is gas in the posterior right chest wall soft tissues in the region of the multiple rib fractures. Gas extends along the right paraspinal musculature inferiorly. ABDOMEN/PELVIS: Liver, Gallbladder, Biliary Tree: The liver is normal in size, shape, and attenuation. There is no biliary ductal dilatation. 0.8 cm hypoattenuating lesion noted in the right lobe of the liver, too small to otherwise characterize.. The gallbladder is unremarkable with no evidence of radiopaque gallstones, gallbladder wall thickening, or pericholecystic inflammatory changes. Pancreas: Unremarkable. Spleen: Unremarkable. Adrenal Glands: Unremarkable. Kidneys and Ureters: The kidneys are normal in size, shape, and attenuation. No hydronephrosis, hydroureter or calculi seen. No perinephric stranding. Bladder: Unremarkable. Gastrointestinal Tract: The stomach is unremarkable. Normal caliber small bowel. There is no obstruction. Diffuse colonic diverticulosis, particularly at the sigmoid colon. No diverticulitis. Small bowel fecalization noted, suggesting slow transit. No free air. No free fluid. Gas noted anterior to the liver appears to be within the right chest wall rather than intraperitoneal. The appendix is unremarkable. Abdominal Wall: No hernia is demonstrated. Lymphovascular Structures: Lymph nodes: Normal. Vascular: Normal caliber aorta with moderate atherosclerotic calcification. Pelvic Viscera: The uterus and adnexa are unremarkable. OSSEOUS STRUCTURES: As seen on the previous CT, there are multiple right-sided rib fractures. Displaced fractures of the right posterior seventh, eighth, ninth, 10th, 11th, and 12th ribs. There is also lateral fracture of the right sixth, seventh, and eighth ribs. No left-sided rib fractures are seen. The sternum is intact. Vertebral body height and alignment is maintained. No pelvic fracture. Moderate degenerative changes of the right hip with narrowing and osteophyte formation noted. CT/CT abdomen pelvis w con IMPRESSION: Redemonstration of multiple right-sided rib fractures. There are posterior fractures of the seventh through 12th ribs and lateral fractures of the right sixth through eighth ribs. Small right hemopneumothorax. Possible minimal contusion of the right lower lobe posteriorly. Soft tissue gas present. No acute traumatic finding in the abdomen or pelvis.
[2020-03-01] MEDS: Acetaminophen 325 MG TABLET 975 MG PO (00:27)
[2020-03-01] MEDS: Ketorolac Tromethamine 15 MG/ML VIAL IVPUSH (00:27)
[2020-03-01 00:28] LABS: INTERNATIONAL NORM RATIO 1.4 (0.9-1.1); Prothrombin Time 16.2 SEC (10.8-13.0)
[2020-03-01 00:31] LABS: Partial Thromboplastin Time 32.6 SEC (24.1-38.0)
[2020-03-01 00:35] LABS: COVID-19 Test Negative (Negative)
[2020-03-01] MEDS: iohexoL 350 MG/ML 100 ML INFUS..BTL 85 ML IV (00:48)
[2020-03-01 00:49] LABS: Alanine Aminotransferase 29 U/L (0-31); Alkaline Phosphatase 61 U/L (39-117); Anion Gap 14 (12-20); Aspartate Amino Transferase 26 U/L (5-31); Bilirubin Direct < 0.2 mg/dL (0.0-0.5); Bilirubin Total 0.3 mg/dL (0.0-1.0); Blood Urea Nitrogen 35 mg/dL (9-16); Calcium 9.4 mg/dL (8.4-10.2); Carbon Dioxide 29 mmol/L (22-29); Chloride 99 mmol/L (96-108); Creatinine Clr Calc Pharmacy 31.5; Estimated Glomerular Filt Rate 42; Glucose Random 193 mg/dL (60-115); Lipase 18 U/L (8-78); Potassium 3.5 mmol/l (3.3-5.1); Sodium 138 mmol/L (135-145); Total Protein 6.7 g/dL (6.5-8.0)
[2020-03-01 00:52] LABS: Troponin-I High Sensitivity 25.8 ng/L (<3.5-17.0)
[2020-03-01 01:02] LABS: SLIDE REVIEW VERIFIED
[2020-03-01 01:07] VITALS: BP 135/71; PULSE 102; RESP 13; O2SAT 94
--- NOTE | 2020-03-01 01:28 | PC.NURSE ---
SECOND ATTEMPT TO CONTACT [facility] ER FOR RN TO RN REPORT. NO ANSWER IN ER.
--- NOTE | 2020-03-01 01:28 | PC.NURSE ---
PT TRANSFERRED TO [facility] BY [facility]. MD GASPAR WANTS EMS TO TRANSPORT, RADIOLOGY DISC NOT FINISHED AND SHE IS AWARE.
--- NOTE | 2020-03-01 01:37 | PC.NURSE ---
VIOLA CALLED TO LET HIM KNOW THAT PAT WAS TRANSFERRED TO [facility].
== END 2020-03-01 01:39 | disposition short-term general hospital (02) ==
PROVIDERS: Emergency Provider Student in an Organized Health Care Education/Training Program
DX: S22.41XA Multiple fractures of ribs, right side, initial encounter for closed fracture (principal); S27.2XXA Traumatic hemopneumothorax, initial encounter; S27.321A Contusion of lung, unilateral, initial encounter; W18.30XA Fall on same level, unspecified, initial encounter; Z20.828 Contact with and (suspected) exposure to other viral communicable diseases; I10 Essential (primary) hypertension; I48.91 Unspecified atrial fibrillation; Y93.89 Activity, other specified; Y92.019 Unspecified place in single-family (private) house as the place of occurrence of the external cause; Y99.9 Unspecified external cause status; Z79.01 Long term (current) use of anticoagulants; Z79.82 Long term (current) use of aspirin; Z79.899 Other long term (current) drug therapy
CPT/HCPCS: 36415; 70450; 71045; 71260; 72128; 72131; 74177; 80053; 80076; 82248; 83690; 84484; 85025; 85610; 85730; 87635; 90471; 90715; 93005; 96374; 99285; J1885; Q9967

== ENCOUNTER → 2020-03-16 10:18 | Outpatient (BNVA) | payer MEDICARE, OTHER, SELFPAY | PROVIDERS: PCP Internal Medicine; Visit Provider Nurse Practitioner Family | DX: I48.91 Unspecified atrial fibrillation (principal); J94.2 Hemothorax; I10 Essential (primary) hypertension; W19.XXXA Unspecified fall, initial encounter; S22.39XA Fracture of one rib, unspecified side, initial encounter for closed fracture | CPT/HCPCS: 99212 ==

== ENCOUNTER 2020-03-29 15:29 | Inpatient (IN) | payer MEDICARE, OTHER, SELFPAY ==
[2020-03-29] VITALS (7 sets, daily range): BP systolic 178–192; BP diastolic 81–104; PULSE 73–94; RESP 16–22; TEMP 36.6; O2SAT 92–94; BMI 20.9
--- NOTE | 2020-03-29 | ECG_ITS ---
Test Reason : REPEAT Blood Pressure : / mmHG Vent. Rate : 089 BPM Atrial Rate : 086 BPM P-R Int : 000 ms QRS Dur : 102 ms QT Int : 368 ms P-R-T Axes : 000 -53 185 degrees QTc Int : 447 ms Atrial fibrillation with premature ventricular or aberrantly conducted complexes Incomplete right bundle branch block Left anterior fascicular block Minimal voltage criteria for LVH, may be normal variant Septal infarct (cited on or before 29-MAR-2020) ST & T wave abnormality, consider lateral ischemia Abnormal ECG When compared with ECG of 29-MAR-2020 16:08, No significant changes seen Referred By: Vannessa Macias Electronically Signed By:ADRIANA MARTÍNEZ MD
--- NOTE | 2020-03-29 15:56 | ECG_ITS ---
Test Reason : SOB Blood Pressure : / mmHG Vent. Rate : 080 BPM Atrial Rate : 077 BPM P-R Int : 000 ms QRS Dur : 100 ms QT Int : 362 ms P-R-T Axes : 000 -49 184 degrees QTc Int : 417 ms Atrial fibrillation Incomplete right bundle branch block Left anterior fascicular block Septal infarct , age undetermined ST & T wave abnormality, consider lateral ischemia Abnormal ECG When compared with ECG of 29-FEB-2020 22:41, Incomplete right bundle branch block is now Present ST more depressed Lateral leads Nonspecific T wave abnormality now evident in Inferior leads Referred By: Vannessa Macias Electronically Signed By:ADRIANA MARTÍNEZ MD
--- NOTE | 2020-03-29 16:16 | XR_ITS ---
EXAMINATION: XR CHEST CLINICAL INFORMATION: Chest pain and shortness of breath. COMPARISON: 02/29/2020 chest radiograph. TECHNIQUE: Frontal view of the chest was obtained. FINDINGS: Moderate right and small left pleural effusions are seen. The heart and mediastinal structures are unremarkable. XR/XR chest 1V IMPRESSION: Interval development of moderate right and small left pleural effusions.
--- NOTE | 2020-03-29 16:18 | ED_ITS ---
HPI - General Adult General Chief complaint: Dyspnea Stated complaint: SOB X 10 HOURS Time Seen by Provider: 03/29/20 15:54 Source: patient Mode of arrival: ambulatory Limitations: no limitations History of Present Illness HPI narrative: Patient comes emergency room complaining of right-sided chest pain and shortness of breath. Patient states she has been having chest pain since 2 in the morning, and shortness of breath for about a month now. Patient states she had a visiting nurse coming to visit her in the morning, for visiting nurse request, patient accepted to come to the emergency room for further evalu ation and treatment. At this time, patient complaining of mild right-sided chest pain, nonradiating, dull, not feeling short of breath at this time. MD complaint: Chest pain and shortness of breath Related Data Home Medications Medication Instructions Recorded Confirmed alendronate 1 tab PO DAILY 02/26/20 03/16/20 omeprazole 1 cap PO DAILY 02/26/20 03/16/20 sertraline [Zoloft] 50 mg PO DAILY 02/26/20 03/16/20 amlodipine 10 mg tablet 10 mg PO DAILY 03/16/20 03/16/20 digoxin 125 mcg (0.125 mg) tablet 125 mcg PO DAILY 03/16/20 03/16/20 gabapentin 300 mg capsule 300 mg PO TID 03/16/20 03/16/20 lisinopril 10 mg tablet 10 mg PO DAILY 03/16/20 03/16/20 metoprolol tartrate 100 mg tablet 100 mg PO BID 03/16/20 03/16/20 tramadol 50 mg tablet mg PO 03/16/20 03/16/20 Previous Rx's Medication Instructions Recorded cefuroxime axetil 250 mg PO BID #6 tab 02/29/20 Allergies Allergy/AdvReac Type Severity Reaction Status Date / Time No Known Allergies Allergy Verified 02/26/20 14:17 Review of Systems Review of Systems: Constitutional : No Weight loss, No Fever, No Chills, No Night Sweats, No Fatigue, No Malaise ENT/Mouth : No Hearing loss, No Ear Pain, No Nasal Congestion, No Sinus Pain, No Hoarseness, No sore throat, No Rhinorrhea, No Swallowing Difficulty Eyes: No Eye Pain, No Swelling, No Redness, No Foreign Body, No Discharge, No Vision Changes Cardiovascular : Complaining of right-sided chest pain since 2 in the morning (14 hours now), complaining of shortness of breath, No Dyspnea on Exertion, No Orthopnea, No Edema, No Palpitations Respiratory : No Cough, No Sputum, No Wheezing, No Smoke Exposure, complaining of Dyspnea Gastrointestinal : No Nausea, No Vomiting, No Diarrhea, No Constipation, No abdominal Pain, No Hematochezia, No Melena Genitourinary : no irregular bleeding, No Dysuria, No Urinary Frequency, No Hematuria, No Urinary Incontinence, No Urgency, No Flank Pain, No Urinary Flow Changes, No Hesitancy Musculoskeletal : No joint pain, No Myalgias, No Joint Swelling Skin : No Skin Lesions, No rash Neuro : No Weakness, No Numbness, No Paresthesias, No Loss of Consciousness, No Dizziness, No Headache Psych : No Anxiety/Panic, No Depression, No SI/HI/AH/VH, No Social Issues, Heme/Lymph: No Bruising, No Bleeding,No Lymphadenopathy Endocrine : No Polyuria, No Polydipsia, No Temperature Intolerance COUNTS INCLUDE 234 BEDS AT THE [facility] Past Medical History Medical History Anxiety Atrial fibrillation with controlled ventricular rate Depression GERD (gastroesophageal reflux disease) HTN (hypertension) Social History Social History Household Members: Spouse Housing: House Alcohol intake: never Smoking Status: Never smoker Smoked in Last 30 Days: No Use of substances other than those prescribed or required for medical reasons: No Advance Directives: No Advance Directives Information Provided: Yes service: No Current occupational status: retired Physical Exam Vital Signs: Vital Signs: Last Vital Signs Temp 97.8 F 03/29/20 15:31 Pulse 89 03/29/20 17:36 Resp 20 03/29/20 17:36 BP 180/94 H 03/29/20 17:36 Pulse Ox 93 03/29/20 17:36 Body Mass Index 20.9 Appearance: Alert. Oriented X3. No acute distress. Eyes: Pupils equal, round and reactive to light. ENT: Pharynx normal. Neck: Normal inspection. Neck supple. No lymph nodes noted. No crepitus CVS: Normal heart rate and rhythm. Pulses normal. Normal S1 and S2, no reproducible chest pain Respiratory: No respiratory distress. Decreased breath sounds in the right lower lobe, No Wheezing. No rales , 93% on room air Abdomen: Soft and nontender. No rigidity. No distention. good BS x4 Skin: Skin warm and dry. Normal skin color. Normal skin turgor. Extremities: No lower extremity edema. No lower extremity edema. No Lacerations. No Rash Neuro: Oriented X 3. No motor deficit. No sensory deficit. Moving all extermities. No slurred speech. Course Course Course Narrative: I discussed with the patient that she has fluid in her lungs, pleural effusions, patient states this is the 1st time that she has had them. Patient's oxygen saturation 91% at rest on room air. Patient gets very short of breath with exertion. I discussed the above-mentioned with the hospitalist, EMELY Ocasio, patient being admitted Patient's troponin is 23.5, patient's baseline troponin has been 23 since surgery 2020 Medical Decision Making Lab Data Result diagrams: 03/29/20 16:32 03/29/20 16:33 Labs: Lab Results 03/29/20 03/29/20 03/29/20 Range/Units 16:32 16:33 16:33 WBC 7.8 (4.8-10.8) X10*3/uL RBC 4.30 (4.20-5.50) X10*6/uL Hgb 13.0 (12.0-16.0) g/dl Hct 39.1 (37-47) % MCV 90.9 (80-98) fL MCH 30.2 (27.0-33.0) pg MCHC 33.2 (31.0-35.0) g/dl RDW 15.4 (11.0-16.0) % Plt Count 255 (160-400) X10*3/uL MPV 11.9 (9.4-12.3) fL Immature Gran % (Auto) 0.3 (0.0-0.4) % Neut % (Auto) 75.0 H (45-73) % Lymph % (Auto) 18.1 L (20-40) % [place] % (Auto) 4.9 (2-11) % Eos % (Auto) 1.3 (0-4) % Baso % (Auto) 0.4 (0-2) % Lymph # (Auto) 1.4 (1.2-4.9) X10*3/uL [place] # (Auto) 0.4 (0.1-1.2) X10*3/uL Eos # (Auto) 0.1 (0.0-0.4) X10*3/uL Baso # (Auto) 0.0 (0.0-0.2) X10*3/uL Abs Immat Gran (auto) 0.02 (0.00-0.03) X10*3/uL Absolute Neuts (auto) 5.8 (2.0-8.3) X10*3/uL Absolute Nucleated RBC 0.000 (0.0-0.012) X10*3/uL Nucleated RBC % (auto) 0.0 (0.0-0.2) /100WBC PT 13.2 H (10.8-13.0) SEC INR 1.1 (0.9-1.1) D-Dimer 663 NG/ML Sodium 140 (135-145) mmol/L Potassium 4.0 (3.3-5.1) mmol/L Chloride 104 (96-108) mmol/L Carbon Dioxide 24 (22-29) mmol/L Anion Gap 16 (12-20) BUN 8 L D (9-16) mg/dL Creatinine 0.63 (0.5-1.4) mg/dL Estim Creat Clear Calc 66.2 Estimated GFR > 60 Random Glucose 107 D (60-115) mg/dL Calcium 9.0 (8.4-10.2) mg/dL Total Bilirubin 0.5 (0.0-1.0) mg/dL Direct Bilirubin < 0.2 (0.0-0.5) mg/dL AST 33 H (5-31) U/L ALT 20 (0-31) U/L Alkaline Phosphatase 126 H D (39-117) U/L Troponin I High Sens (<3.5-17.0) ng/L B-Natriuretic Peptide (<100) pg/mL Total Protein 7.1 (6.5-8.0) g/dL Albumin 3.8 (3.5-5.0) g/dL Coronavirus (PCR) (Negative) Influenza Type A (PCR) (Negative) Influenza Type B (PCR) (Negative) RSV RNA Qual (PCR) (Negative) 03/29/20 03/29/20 Range/Units 16:33 16:33 WBC (4.8-10.8) X10*3/uL RBC (4.20-5.50) X10*6/uL Hgb (12.0-16.0) g/dl Hct (37-47) % MCV (80-98) fL MCH (27.0-33.0) pg MCHC (31.0-35.0) g/dl RDW (11.0-16.0) % Plt Count (160-400) X10*3/uL MPV (9.4-12.3) fL Immature Gran % (Auto) (0.0-0.4) % Neut % (Auto) (45-73) % Lymph % (Auto) (20-40) % [place] % (Auto) (2-11) % Eos % (Auto) (0-4) % Baso % (Auto) (0-2) % Lymph # (Auto) (1.2-4.9) X10*3/uL [place] # (Auto) (0.1-1.2) X10*3/uL Eos # (Auto) (0.0-0.4) X10*3/uL Baso # (Auto) (0.0-0.2) X10*3/uL Abs Immat Gran (auto) (0.00-0.03) X10*3/uL Absolute Neuts (auto) (2.0-8.3) X10*3/uL Absolute Nucleated RBC (0.0-0.012) X10*3/uL Nucleated RBC % (auto) (0.0-0.2) /100WBC PT (10.8-13.0) SEC INR (0.9-1.1) D-Dimer NG/ML Sodium (135-145) mmol/L Potassium (3.3-5.1) mmol/L Chloride (96-108) mmol/L Carbon Dioxide (22-29) mmol/L Anion Gap (12-20) BUN (9-16) mg/dL Creatinine (0.5-1.4) mg/dL Estim Creat Clear Calc Estimated GFR Random Glucose (60-115) mg/dL Calcium (8.4-10.2) mg/dL Total Bilirubin (0.0-1.0) mg/dL Direct Bilirubin (0.0-0.5) mg/dL AST (5-31) U/L ALT (0-31) U/L Alkaline Phosphatase (39-117) U/L Troponin I High Sens 23.5 H (<3.5-17.0) ng/L B-Natriuretic Peptide 549 H (<100) pg/mL Total Protein (6.5-8.0) g/dL Albumin (3.5-5.0) g/dL Coronavirus (PCR) NEGATIVE (Negative) Influenza Type A (PCR) NEGATIVE (Negative) Influenza Type B (PCR) NEGATIVE (Negative) RSV RNA Qual (PCR) NEGATIVE (Negative) Imaging Data Chest x-ray: Radiologist's impression: Moderate right and small left pleural effusions are seen. The heart and mediastinal structures are unremarkable. XR/XR chest 1V IMPRESSION: Interval development of moderate right and small left pleural effusions. ECG Data Attestation: I personally reviewed and interpreted this ECG as follows: (Atrial fibrillation, heart rate 80, QTC 417, nonspecific T-wave inversions in V4 and V5, no ST segment depressions) Discharge Plan Discharge Clinical Impression: Pleural effusion Patient Disposition: Admitted As Inpatient Prescriptions: No Action alendronate 10 mg tablet 1 tab PO DAILY RF: 0 sertraline [Zoloft] 25 mg tablet 50 mg PO DAILY RF: 0 omeprazole 20 mg capsule,delayed release(DR/EC) 1 cap PO DAILY RF: 0 cefuroxime axetil 250 mg tablet 250 mg PO BID Qty: 6 RF: 0 lisinopril 10 mg tablet 10 mg PO DAILY RF: 0 metoprolol tartrate 100 mg tablet 100 mg PO BID RF: 0 amlodipine 10 mg tablet 10 mg PO DAILY RF: 0 gabapentin 300 mg capsule 300 mg PO TID RF: 0 tramadol 50 mg tablet PO RF: 0 digoxin 125 mcg (0.125 mg) tablet 125 mcg PO DAILY RF: 0
[2020-03-29 16:42] LABS: MANUAL DIFF FLAG NO
[2020-03-29 16:49] LABS: Basophils Percent Auto 0.4 % (0-2); Eosinophils Absolute Auto 0.1 X10*3/uL (0.0-0.4); Eosinophils Percent Auto 1.3 % (0-4); Hematocrit 39.1 % (37-47); Imm Gran Abs Auto 0.02 X10*3/uL (0.00-0.03); Imm Gran Pct Auto 0.3 % (0.0-0.4); Lymphocytes Absolute Auto 1.4 X10*3/uL (1.2-4.9); Lymphocytes Percent Auto 18.1 % (20-40); Mean Corpuscular HGB Conc 33.2 g/dl (31.0-35.0); Mean Corpuscular Hemoglobin 30.2 pg (27.0-33.0); Mean Corpuscular Volume 90.9 fL (80-98); Mean Platelet Volume 11.9 fL (9.4-12.3); Monocytes Absolute Auto 0.4 X10*3/uL (0.1-1.2); Monocytes Percent Auto 4.9 % (2-11); Neutrophils Absolute Auto 5.8 X10*3/uL (2.0-8.3); Platelet Count 255 X10*3/uL (160-400); Red Cell Distribution Width 15.4 % (11.0-16.0); White Blood Count 7.8 X10*3/uL (4.8-10.8)
[2020-03-29 16:54] LABS: INTERNATIONAL NORM RATIO 1.1 (0.9-1.1); Prothrombin Time 13.2 SEC (10.8-13.0)
[2020-03-29 16:57] LABS: D Dimer 663 NG/ML
[2020-03-29 17:22] LABS: Alanine Aminotransferase 20 U/L (0-31); Albumin Level 3.8 g/dL (3.5-5.0); Alkaline Phosphatase 126 U/L (39-117); Anion Gap 16 (12-20); Aspartate Amino Transferase 33 U/L (5-31); Bilirubin Direct < 0.2 mg/dL (0.0-0.5); Bilirubin Total 0.5 mg/dL (0.0-1.0); Blood Urea Nitrogen 8 mg/dL (9-16); Carbon Dioxide 24 mmol/L (22-29); Chloride 104 mmol/L (96-108); Creatinine Clr Calc Pharmacy 66.2; Estimated Glomerular Filt Rate > 60; Glucose Random 107 mg/dL (60-115); Sodium 140 mmol/L (135-145); Total Protein 7.1 g/dL (6.5-8.0)
[2020-03-29 17:23] LABS: B Type Natriuretic Peptide 549 pg/mL (<100); Troponin-I High Sensitivity 23.5 ng/L (<3.5-17.0)
[2020-03-29 17:26] LABS: Influenza A PCR NEGATIVE (Negative); Influenza B PCR NEGATIVE (Negative); Resp Syncy Virus RNA Qual PCR NEGATIVE (Negative); SARS COV2 PCR INHOUSE NEGATIVE (Negative)
[2020-03-29] MEDS: Aspirin Enteric Coated 325 MG TABLET.DR PO (17:35)
--- NOTE | 2020-03-29 18:39 | PM.IMHP ---
History of Present Illness Date of Service: 03/29/20 Chief Complaint: chest pain 79yo F with HTN + AF presenting to ED with c/o L-sided chest pain that she noticed while going to the bathroom at 0200 along with worsening dyspnea for the past month. Seen by SALINA, who sent her to the ED. Pain is moderate, L-sided, non-exertional, non-radiating, sharp in quality. She endorses worsening dyspnea over the last month, worsened by exertion. Last night she developed 2-pillow orthopnea. She also noticed some swelling in her legs, which is new for her. Recent history notable for AF diagnosed on admission for after intentinoal overdose 02/25-02/29/20. TTE 02/27/20 showed low-normal LVEF 50-55%, mildly decreased RVEF, mild aortic regurgitation, and indeterminate diastolic function. She was discharged home, became unsteady and possibly syncopized, then fell. She returned to the [facility] ED and was transferred to [facility] after she was found to have R-sided rib fractures (7th-12th) with a small hemopneumothorax. She was discharged after 1 week and did not require tube thoracostomy. TTE 03/04/20 showed normal EF, no RWMA, severely dilated LA, mild LVH, dilated RA, trivial pericardial effusion. She followed up with [facility] Cardiology 03/16/20. Unsure if she is on an anticoagulant. She states the L-sided chest pain is distinct from her rib pain on the R side of her chest. On CXR in ED found to have pleural effusions. SaO2 91% on RA. Labs notable for: hs-Tn-I 23.5 (was 25.8 on 03/01/20), BNP 549, D-dimer 663, COVID PCR negative. CXR shows new moderate R and small L pleural effusions. EKG shows AF, iRBBB, LAFB, septal Q waves, lateral ST depressions PMHx: HTN, depression, anxiety, GERD, AF PSHx: FHx: no cardiac disease SHx: lives with , independent in ADLs, no EtOH/drugs/smoking Review of Systems Review of Systems: Yes all other systems are reviewed and are negative [facility] Medical History Anxiety Atrial fibrillation with controlled ventricular rate Depression GERD (gastroesophageal reflux disease) HTN (hypertension) Functional capacity: uses cane/walker Social History Household Members: Spouse Housing: House Alcohol intake: never Smoking Status: Never smoker Second Hand Smoke Exposure: No service: No Current occupational status: retired Meds Allergies Allergy/AdvReac Type Severity Reaction Status Date / Time No Known Allergies Allergy Verified 02/26/20 14:17 Home Medications Medication Instructions Recorded Confirmed Type alendronate 1 tab PO DAILY 02/26/20 03/29/20 History omeprazole 1 cap PO DAILY 02/26/20 03/29/20 History sertraline [Zoloft] 50 mg PO DAILY 02/26/20 03/29/20 History amlodipine 10 mg tablet 10 mg PO DAILY 03/16/20 03/29/20 History digoxin 125 mcg (0.125 mg) tablet 125 mcg PO DAILY 03/16/20 03/29/20 History gabapentin 300 mg capsule 300 mg PO TID 03/16/20 03/29/20 History lisinopril 10 mg tablet 10 mg PO DAILY 03/16/20 03/29/20 History metoprolol tartrate 100 mg tablet 100 mg PO BID 03/16/20 03/29/20 History tramadol 50 mg tablet 50 mg PO Q6H PRN 03/16/20 03/29/20 History apixaban [Eliquis] 1 tab PO BID 03/29/20 03/29/20 History Physical Exam Vital Signs and Narrative: Vital Signs: Last Vital Signs Temp 97.8 F 03/29/20 15:31 Pulse 89 03/29/20 17:36 Resp 20 03/29/20 17:36 BP 180/94 H 03/29/20 17:36 Pulse Ox 93 03/29/20 17:36 Body Mass Index 20.9 Const: General: cooperative, healthy appearing, comfortable and no acute distress Orientation/consciousness: oriented to person, oriented to place and oriented to time Eyes: Sclerae: sclerae normal Neck: Yes supple Chest: Chest palpation & inspection: normal inspection of the chest Resp: Auscultation: diminished lung sounds (R>L base) Cardio: Other: irregularly irregular, no murmurs Peripheral pulses: Peripheral pulses 2+ throughout GI: Inspection: Yes normal to inspection Palpation (GI): Soft to palpation and nontender Skin: Rashes: no rashes Neuro: General: oriented to person, oriented to place, oriented to time and no focal motor deficits Extrem: Other: 1+ bilateral leg edema General: Yes edema Psych: Other: denies depression Appearance: grossly normal Results Labs CBC and Chem 7: 03/29/20 16:32 03/30/20 09:33 Labs: Laboratory Results - last 24 hr 03/29/20 03/29/20 03/29/20 16:32 16:33 16:33 MCV 90.9 MCH 30.2 MCHC 33.2 RDW 15.4 Plt Count 255 MPV 11.9 Immature Gran % (Auto) 0.3 Neut % (Auto) 75.0 H Lymph % (Auto) 18.1 L [place] % (Auto) 4.9 Eos % (Auto) 1.3 Baso % (Auto) 0.4 Lymph # (Auto) 1.4 [place] # (Auto) 0.4 Eos # (Auto) 0.1 Baso # (Auto) 0.0 Abs Immat Gran (auto) 0.02 Absolute Neuts (auto) 5.8 Absolute Nucleated RBC 0.000 Nucleated RBC % (auto) 0.0 PT 13.2 H INR 1.1 D-Dimer 663 Anion Gap 16 Estim Creat Clear Calc 66.2 Estimated GFR > 60 Random Glucose 107 D Calcium 9.0 Total Bilirubin 0.5 Direct Bilirubin < 0.2 AST 33 H ALT 20 Alkaline Phosphatase 126 H D Troponin I High Sens B-Natriuretic Peptide Total Protein 7.1 Albumin 3.8 Coronavirus (PCR) Influenza Type A (PCR) Influenza Type B (PCR) RSV RNA Qual (PCR) 03/29/20 03/29/20 16:33 16:33 MCV MCH MCHC RDW Plt Count MPV Immature Gran % (Auto) Neut % (Auto) Lymph % (Auto) [place] % (Auto) Eos % (Auto) Baso % (Auto) Lymph # (Auto) [place] # (Auto) Eos # (Auto) Baso # (Auto) Abs Immat Gran (auto) Absolute Neuts (auto) Absolute Nucleated RBC Nucleated RBC % (auto) PT INR D-Dimer Anion Gap Estim Creat Clear Calc Estimated GFR Random Glucose Calcium Total Bilirubin Direct Bilirubin AST ALT Alkaline Phosphatase Troponin I High Sens 23.5 H B-Natriuretic Peptide 549 H Total Protein Albumin Coronavirus (PCR) NEGATIVE Influenza Type A (PCR) NEGATIVE Influenza Type B (PCR) NEGATIVE RSV RNA Qual (PCR) NEGATIVE Imaging Radiologist's Impressions: Impressions Chest X-Ray 03/29/20 16:16 IMPRESSION: Interval development of moderate right and small left pleural effusions. Assessment and Plan (1) Pleural effusion: Status: Acute (2) CHF exacerbation: Status: Acute This is an 79yo F with recently diagnosed AF and recent traumatic rib fractures and hemopneumothorax presenting with chest pain separate from her rib fracture pain, along with worsening exertional dyspnea, orthopnea, and peripheral edema, found to have pleural effusions. # acute/chronic HFpEF exacerbation - admit to [facility], telemetry, I/O, give IV diuresis and monitor BMP/BNP/Mg, consult Cardiology - continue JUANI-I, B-link # pleural effusions - likely related to recent hemothorax as well as CHF. diursese as above # chest pain - give ASA + atorvastatin, recheck hs-Tn-I. lidocaine patch to area of rib fravtures # AF - continue B-link + digoxin for rate control, start apixaban 2.5 mg bid # HTN - continue JUANI-I, B-link # GERD - continue PPI # depression - continue sertraline # VTE ppx - apixaban as above # code - FULL
[2020-03-29] MEDS: Morphine Sulfate 2 MG/ML CARTRIDGE IM (19:36)
[2020-03-29] MEDS: Atorvastatin Calcium 80 MG TABLET PO (21:38)
[2020-03-29] MEDS: Apixaban 2.5 MG TABLET PO (21:38)
[2020-03-29] MEDS: Furosemide 40 MG/4 ML VIAL 20 MG IVPUSH (21:39)
--- NOTE | 2020-03-29 22:17 | PC.NURSE ---
left arm 18g by ems blown on arrival. swelling noted no bloof return iv dc and wrapped.
[2020-03-29 23:02] LABS: Troponin-I High Sensitivity 25.6 ng/L (<3.5-17.0)
[2020-03-30] VITALS (11 sets, daily range): BP systolic 124–212; BP diastolic 66–104; PULSE 66–100; RESP 16–18; TEMP 36.3–36.9; O2SAT 92–97
[2020-03-30] MEDS: Acetaminophen 325 MG TABLET 650 MG PO (02:58)
[2020-03-30] MEDS: ondansetron HCL 4 MG/2 ML VIAL IVPUSH (03:28)
[2020-03-30] MEDS: Omeprazole 20 MG CAPSULE.DR PO (07:41)
[2020-03-30] MEDS: Digoxin 0.125 MG TABLET PO (07:41)
[2020-03-30] MEDS: Metoprolol Succinate ER 50 MG TAB.ER.24H PO (07:42)
[2020-03-30] MEDS: Apixaban 2.5 MG TABLET PO ×2 (07:43→21:05)
[2020-03-30] MEDS: amLODIPine Besylate 10 MG TABLET PO (07:44)
[2020-03-30] MEDS: Sertraline HCL 50 MG TABLET PO (07:44)
[2020-03-30] MEDS: 0.9 % Sodium Chloride Flush 3 ML SYRINGE IVFLUSH ×3 (07:45→21:06)
[2020-03-30] MEDS: Gabapentin 300 MG CAPSULE PO ×4 (08:01→21:05)
[2020-03-30] MEDS: Furosemide 40 MG/4 ML VIAL 20 MG IVPUSH ×2 (09:58→21:05)
[2020-03-30 10:19] LABS: B Type Natriuretic Peptide 384 pg/mL (<100); Blood Urea Nitrogen 11 mg/dL (9-16); Calcium 9.1 mg/dL (8.4-10.2); Creatinine Clr Calc Pharmacy 49.1; Estimated Glomerular Filt Rate > 60; Glucose Random 160 mg/dL (60-115); Magnesium 1.9 mg/dL (1.6-2.6)
--- NOTE | 2020-03-30 10:26 | PM.CNCAR ---
History of Present Illness History of Present Illness Date of Service: 03/30/20 Requesting physician: Irina Acosta Consult reason: atrial fibrillation and congestive heart failure Chief complaint: pleural effusion, CHF exacerbation Narrative: Thank you for consulting us on Tere[facility] for cardiology consultation due to presence of congestive heart failure and atrial fibrillation. She is 79-year-old woman who lives at home with her . Prior to February she was in good health when she was admitted here with overdose and subsequently was noted to have atrial fibrillation with rapid ventricular response. She was seen by Dr. Reynaga at that time and managed with rate control and oral anticoagulation. However since then she had a fall and rib fracture and was taken to [facility] and was evaluated by Trauma surgery there and her oral anticoagulant was stopped due to rib fracture and some hemo thorax. She has seen later in the office and her oral anticoagulation was not restarted. She comes to the hospital with progressive shortness of breath and referred by visiting nurse because she heard something as per the patient. She is very vague historian. She currently says that she does not have any significant pain no chest pain or significant shortness of breath. She did have leg edema started within a day. She has not noticed any weight gain or abdominal distension. On asking whether she had orthopnea she denied however she has been getting more progressive exertional shortness of breath. Her BNP is significantly increased. Chest x-ray finding consistent with bilateral pleural effusion right greater than left. He has today she was started on oral anticoagulation therapy with Eliquis two point five mg b.i.d. which is appropriate dose given her weight and her age. On admission which she was significantly hypertensive, she says she had taken all her medications. Blood pressure is much better controlled now. Review of Systems Constitutional: Constitutional: Denies body ache(s), Denies chills, Denies fever(s), Reports lethargy and Reports malaise Cardiovascular: Cardiovascular: Denies Abdominal Distension, Reports chest pain, Reports leg edema, Denies lightheadedness, Denies Loss of Consciousness, Denies radiating jaw, neck or arm pain, Denies palpitations and Reports dyspnea on exertion Respiratory: Respiratory: Denies hemoptysis, Denies pain with cough and Reports dyspnea on exertion Gastrointestinal: Gastrointestinal: Reports no additional gastrointestinal complaints Genitourinary: Genitourinary: Reports no additional female genitourinary complaints Musculoskeletal: Musculoskeletal: Reports no additional musculoskeletal complaints Neurologic: Reports system reviewed and no additional complaints, except as documented Psychiatric: Psychiatric: Reports anxiety Endocrine: Endocrine: Reports no additional endocrine complaints and Denies palpitations Hematologic/Lymphatic: Hematologic/Lymphatic: Reports no additional hematologic/lymphatic complaints Allergic/Immunologic: Allergic/Immunologic: Reports no additional allergic/immunologic complaints [facility] Past Medical History Medical History Anxiety Atrial fibrillation with controlled ventricular rate Depression GERD (gastroesophageal reflux disease) HTN (hypertension) Functional capacity: uses cane/walker Social History Social History Household Members: Spouse Housing: House Alcohol intake: never Smoking Status: Never smoker Smoked in Last 30 Days: No Use of substances other than those prescribed or required for medical reasons: No Advance Directives: No Advance Directives Information Provided: Yes service: No Current occupational status: retired Meds Allergies Allergy/AdvReac Type Severity Reaction Status Date / Time No Known Allergies Allergy Verified 02/26/20 14:17 Home Medications Medication Instructions Recorded Confirmed Type alendronate 1 tab PO DAILY 02/26/20 03/29/20 History omeprazole 1 cap PO DAILY 02/26/20 03/29/20 History sertraline [Zoloft] 50 mg PO DAILY 02/26/20 03/29/20 History amlodipine 10 mg tablet 10 mg PO DAILY 03/16/20 03/29/20 History digoxin 125 mcg (0.125 mg) tablet 125 mcg PO DAILY 03/16/20 03/29/20 History gabapentin 300 mg capsule 300 mg PO TID 03/16/20 03/29/20 History lisinopril 10 mg tablet 10 mg PO DAILY 03/16/20 03/29/20 History metoprolol tartrate 100 mg tablet 100 mg PO BID 03/16/20 03/29/20 History tramadol 50 mg tablet 50 mg PO Q6H PRN 03/16/20 03/29/20 History apixaban [Eliquis] 1 tab PO BID 03/29/20 03/29/20 History Physical Exam Vital Signs: Vital Signs: Last Vital Signs Temp 97.8 F 03/29/20 19:02 Pulse 96 03/30/20 09:19 Resp 18 03/30/20 09:19 BP 141/79 H 03/30/20 09:19 Pulse Ox 97 03/30/20 09:19 Body Mass Index 20.9 Const: General: cooperative, comfortable, no acute distress, alert, awake and anxious Orientation/consciousness: patient oriented x3 HENMT: Head: Yes normocephalic and Yes atraumatic Neck: Neck: Yes trachea midline, Yes supple and Yes no JVD (Mild HJR) Resp: Effort & Inspection: normal respiratory effort Auscultation: crackles on the right and breath sounds absent on the right (Base) Cardio: Rate: tachycardic Rhythm: abnormal rhythm irregularly irregular Heart sounds: S1 normal heart sound present and S2 normal heart sound present Peripheral pulses: Peripheral pulses 2+ throughout GI: Auscultation: normal bowel sounds Skin: General skin exam: no rashes or lesions noted Neuro: General: patient oriented x3 Extrem: General: Yes no clubbing, cyanosis or edema Psych: Appearance: grossly normal Affect: Anxious affect present Results Labs and Meds Result diagrams: 03/29/20 16:32 03/30/20 09:33 Lab results: Laboratory Results - last 24 hr 03/29/20 03/29/20 03/29/20 16:32 16:33 16:33 WBC 7.8 RBC 4.30 Hgb 13.0 Hct 39.1 MCV 90.9 MCH 30.2 MCHC 33.2 RDW 15.4 Plt Count 255 MPV 11.9 Immature Gran % (Auto) 0.3 Neut % (Auto) 75.0 H Lymph % (Auto) 18.1 L [place] % (Auto) 4.9 Eos % (Auto) 1.3 Baso % (Auto) 0.4 Lymph # (Auto) 1.4 [place] # (Auto) 0.4 Eos # (Auto) 0.1 Baso # (Auto) 0.0 Abs Immat Gran (auto) 0.02 Absolute Neuts (auto) 5.8 Absolute Nucleated RBC 0.000 Nucleated RBC % (auto) 0.0 PT 13.2 H INR 1.1 D-Dimer 663 Sodium 140 Potassium 4.0 Chloride 104 Carbon Dioxide 24 Anion Gap 16 BUN 8 L D Creatinine 0.63 Estim Creat Clear Calc 66.2 Estimated GFR > 60 Random Glucose 107 D Calcium 9.0 Magnesium Total Bilirubin 0.5 Direct Bilirubin < 0.2 AST 33 H ALT 20 Alkaline Phosphatase 126 H D Troponin I High Sens B-Natriuretic Peptide Total Protein 7.1 Albumin 3.8 Coronavirus (PCR) Influenza Type A (PCR) Influenza Type B (PCR) RSV RNA Qual (PCR) 03/29/20 03/29/20 03/29/20 16:33 16:33 22:28 WBC RBC Hgb Hct MCV MCH MCHC RDW Plt Count MPV Immature Gran % (Auto) Neut % (Auto) Lymph % (Auto) [place] % (Auto) Eos % (Auto) Baso % (Auto) Lymph # (Auto) [place] # (Auto) Eos # (Auto) Baso # (Auto) Abs Immat Gran (auto) Absolute Neuts (auto) Absolute Nucleated RBC Nucleated RBC % (auto) PT INR D-Dimer Sodium Potassium Chloride Carbon Dioxide Anion Gap BUN Creatinine Estim Creat Clear Calc Estimated GFR Random Glucose Calcium Magnesium Total Bilirubin Direct Bilirubin AST ALT Alkaline Phosphatase Troponin I High Sens 23.5 H 25.6 H B-Natriuretic Peptide 549 H Total Protein Albumin Coronavirus (PCR) NEGATIVE Influenza Type A (PCR) NEGATIVE Influenza Type B (PCR) NEGATIVE RSV RNA Qual (PCR) NEGATIVE 03/30/20 03/30/20 09:33 09:33 WBC RBC Hgb Hct MCV MCH MCHC RDW Plt Count MPV Immature Gran % (Auto) Neut % (Auto) Lymph % (Auto) [place] % (Auto) Eos % (Auto) Baso % (Auto) Lymph # (Auto) [place] # (Auto) Eos # (Auto) Baso # (Auto) Abs Immat Gran (auto) Absolute Neuts (auto) Absolute Nucleated RBC Nucleated RBC % (auto) PT INR D-Dimer Sodium Potassium Chloride Carbon Dioxide Anion Gap BUN 11 Creatinine 0.85 Estim Creat Clear Calc 49.1 Estimated GFR > 60 Random Glucose 160 H D Calcium 9.1 Magnesium 1.9 Total Bilirubin Direct Bilirubin AST ALT Alkaline Phosphatase Troponin I High Sens B-Natriuretic Peptide 384 H Total Protein Albumin Coronavirus (PCR) Influenza Type A (PCR) Influenza Type B (PCR) RSV RNA Qual (PCR) EKG shows atrial fibrillation with borderline rate control Imaging Radiologist's impression: Impressions Chest X-Ray 03/29/20 16:16 IMPRESSION: Interval development of moderate right and small left pleural effusions. Assessment and Plan (1) CHF exacerbation: Status: Acute Patient presents with progressive symptoms of shortness of breath and finding suggestive of congestive heart failure with bilateral pleural effusion with elevated BNP. Clinically does not appear to be markedly fluid overloaded at this time. Continue gentle diuresis with Lasix 20 mg IV b.i.d.. May consider rhythm control approach given that her atrial fib relation is most likely responsible for development of heart failure syndrome. Strict intake and output chart. Please trend BMP and BNP tomorrow. Management was discussed with her. (2) Atrial fibrillation with rapid ventricular response: Status: Acute Atrial fibrillation borderline rate control. Resume rate control with metoprolol and low-dose digoxin. Please obtain digoxin assay. Agree with oral anticoagulation with Eliquis at this point time. Follow her pleural effusions by chest x-ray. Given significant left atrial enlargement on echocardiogram, rhythm control would be difficult as well as that she was not on oral anticoagulation therapy she will require ERNESTO guided cardioversion. Will pursue rhythm control during this admission only she has failure to improve with diuresis and/or developed some renal insufficiency or other issues with rate control. Will continue to follow with the patient. Thank you for allowing us to partake in her care
[2020-03-30 10:40] LABS: Anion Gap 16 (12-20); Carbon Dioxide 27 mmol/L (22-29); Chloride 100 mmol/L (96-108); Potassium 3.1 mmol/L (3.3-5.1); Sodium 140 mmol/L (135-145)
--- NOTE | 2020-03-30 13:18 | P.PNIM_ITS ---
Subjective Subjective Date of Service: 03/30/20 Interval History: some nausea chest pain improved ongoing orthopnea Physical Exam Vital Signs: Vital Signs: Last Vital Signs Temp 97.5 F 03/30/20 12:00 Pulse 83 03/30/20 12:00 Resp 18 03/30/20 12:00 BP 143/66 H 03/30/20 12:00 Pulse Ox 92 03/30/20 12:00 Body Mass Index 20.9 Gen: in no acute distress HEENT: sclera anicteric, moist mucus membranes Neck: supple Lungs: decreased air entry at R base Heart: irregularly irregular, no murmurs Abd: soft, non-tender, non-distended Ext: trace LE edema bilaterally Skin: warm/well-perfused Neuro: alert and oriented x3, no focal findings Psych: appropriate affect Objective Data Current Medications Generic Name Dose Route Start Last Admin Trade Name Freq PRN Reason Stop Dose Admin Acetaminophen 650 mg 03/29/20 18:25 03/30/20 02:58 Acetaminophen 325 Mg Tablet PO 650 mg Q6H PRN Administration Pain, Mild (Pain Scale 1-3) Amlodipine Besylate 10 mg 03/30/20 09:00 03/30/20 09:48 Amlodipine Besylate 10 Mg Tablet PO Not Given DAILY [facility] Protocol Apixaban 2.5 mg 03/29/20 21:00 03/30/20 09:48 Apixaban 2.5 Mg Tablet PO Not Given BID [facility] Atorvastatin Calcium 80 mg 03/29/20 21:00 03/29/20 21:38 Atorvastatin Calcium 80 Mg Tablet PO 80 mg DAILY@2100 LINDSAY Administration Digoxin 0.125 mg 03/30/20 09:00 03/30/20 09:49 Digoxin 0.125 Mg Tablet PO Not Given DAILY [facility] Furosemide 20 mg 03/29/20 21:00 03/30/20 09:58 Furosemide 40 Mg/4 Ml Vial IVPUSH 20 mg BID LINDSAY Administration Protocol Gabapentin 300 mg 03/30/20 09:00 03/30/20 08:02 Gabapentin 300 Mg Capsule PO 300 mg TID [facility]SAY Administration Lidocaine 1 patch 03/30/20 09:00 03/30/20 09:53 Lidocaine 4 % Patch Adh..Patch TRANSDERMA Not Given DAILY [facility] Protocol Lisinopril 10 mg 03/30/20 09:00 03/30/20 09:49 Lisinopril 10 Mg Tablet PO Not Given DAILY [facility] Protocol Metoprolol Succinate 50 mg 03/30/20 09:00 03/30/20 09:50 Metoprolol Succinate Er 50 Mg Tab.Er.24h PO Not Given DAILY [facility] Protocol Omeprazole 20 mg 03/30/20 09:00 03/30/20 09:50 Omeprazole 20 Mg Capsule.Dr PO Not Given DAILY [facility] Ondansetron HCl 4 mg 03/30/20 09:52 Ondansetron Hcl 4 Mg/2 Ml Vial IVPUSH Q4H PRN nausea/vomiting Pharmacy Consult 1 each 03/29/20 19:26 Consult Rx Perform Med Rec MISCELLANE ONCE PRN Consult order Sertraline HCl 50 mg 03/30/20 09:00 03/30/20 09:50 Sertraline Hcl 50 Mg Tablet PO Not Given DAILY [facility] Sodium Chloride 3 ml 03/30/20 00:00 03/30/20 07:45 0.9 % Sodium Chloride Flush 3 Ml Syringe IVFLUSH 3 ml QSHIFT [facility] Administration Tramadol HCl 50 mg 03/30/20 07:25 Tramadol Hcl 50 Mg Tablet PO Q6H PRN Pain Labs CBC & Chem 7: 03/29/20 16:32 03/30/20 09:33 Labs: Laboratory Results - last 24 hr 03/29/20 03/29/20 03/29/20 16:32 16:33 16:33 WBC 7.8 RBC 4.30 Hgb 13.0 Hct 39.1 MCV 90.9 MCH 30.2 MCHC 33.2 RDW 15.4 Plt Count 255 MPV 11.9 Immature Gran % (Auto) 0.3 Neut % (Auto) 75.0 H Lymph % (Auto) 18.1 L [place] % (Auto) 4.9 Eos % (Auto) 1.3 Baso % (Auto) 0.4 Lymph # (Auto) 1.4 [place] # (Auto) 0.4 Eos # (Auto) 0.1 Baso # (Auto) 0.0 Abs Immat Gran (auto) 0.02 Absolute Neuts (auto) 5.8 Absolute Nucleated RBC 0.000 Nucleated RBC % (auto) 0.0 PT 13.2 H INR 1.1 D-Dimer 663 Sodium 140 Potassium 4.0 Chloride 104 Carbon Dioxide 24 Anion Gap 16 BUN 8 L D Creatinine 0.63 Estim Creat Clear Calc 66.2 Estimated GFR > 60 Random Glucose 107 D Calcium 9.0 Magnesium Total Bilirubin 0.5 Direct Bilirubin < 0.2 AST 33 H ALT 20 Alkaline Phosphatase 126 H D Troponin I High Sens B-Natriuretic Peptide Total Protein 7.1 Albumin 3.8 Coronavirus (PCR) Influenza Type A (PCR) Influenza Type B (PCR) RSV RNA Qual (PCR) 03/29/20 03/29/20 03/29/20 16:33 16:33 22:28 WBC RBC Hgb Hct MCV MCH MCHC RDW Plt Count MPV Immature Gran % (Auto) Neut % (Auto) Lymph % (Auto) [place] % (Auto) Eos % (Auto) Baso % (Auto) Lymph # (Auto) [place] # (Auto) Eos # (Auto) Baso # (Auto) Abs Immat Gran (auto) Absolute Neuts (auto) Absolute Nucleated RBC Nucleated RBC % (auto) PT INR D-Dimer Sodium Potassium Chloride Carbon Dioxide Anion Gap BUN Creatinine Estim Creat Clear Calc Estimated GFR Random Glucose Calcium Magnesium Total Bilirubin Direct Bilirubin AST ALT Alkaline Phosphatase Troponin I High Sens 23.5 H 25.6 H B-Natriuretic Peptide 549 H Total Protein Albumin Coronavirus (PCR) NEGATIVE Influenza Type A (PCR) NEGATIVE Influenza Type B (PCR) NEGATIVE RSV RNA Qual (PCR) NEGATIVE 03/30/20 03/30/20 09:33 09:33 WBC RBC Hgb Hct MCV MCH MCHC RDW Plt Count MPV Immature Gran % (Auto) Neut % (Auto) Lymph % (Auto) [place] % (Auto) Eos % (Auto) Baso % (Auto) Lymph # (Auto) [place] # (Auto) Eos # (Auto) Baso # (Auto) Abs Immat Gran (auto) Absolute Neuts (auto) Absolute Nucleated RBC Nucleated RBC % (auto) PT INR D-Dimer Sodium 140 Potassium 3.1 L D Chloride 100 Carbon Dioxide 27 Anion Gap 16 BUN 11 Creatinine 0.85 Estim Creat Clear Calc 49.1 Estimated GFR > 60 Random Glucose 160 H D Calcium 9.1 Magnesium 1.9 Total Bilirubin Direct Bilirubin AST ALT Alkaline Phosphatase Troponin I High Sens B-Natriuretic Peptide 384 H Total Protein Albumin Coronavirus (PCR) Influenza Type A (PCR) Influenza Type B (PCR) RSV RNA Qual (PCR) Assessment and Plan (1) CHF exacerbation: Status: Acute (2) Pleural effusion: Status: Acute Assessment and Plan: hospital d#2 79yo F with recently diagnosed AF, recent traumatic rib fractures with hemopneumothorax admitted to [facility] trauma service admitted with CHF exacerbation and pleural effusions # acute/chronic HFpEF exacerbation - continue IV diuresis, monitor I/O + BMP/BNP/Mg, Cardiology following - continue metoprolol succinate + lisinopril # pleural effusions - likely related to recent hemothorax as well as CHF. diursese as above, repeat CXR in am # AF - continue B-link + digoxin [check level] for rate control, started apixaban 2.5 mg bid for anticoagulation. t/c ERNESTO-guided CV if CHF symptoms do not improve # chest pain - troponin flat. treat rib pain with lidocaine patch. pt also on tramadol. # HTN - continue metoprolol + lisionpril + amlodipine # GERD - continue PPI # depression - continue sertraline # VTE ppx - apixaban as above
[2020-03-30] MEDS: Potassium Chloride ER 20 MEQ TAB.ER.PRT 40 MEQ PO (14:16)
[2020-03-30] MEDS: traMADoL HCL 50 MG TABLET PO (14:16)
[2020-03-30] MEDS: Atorvastatin Calcium 80 MG TABLET PO (21:05)
[2020-03-31] VITALS (8 sets, daily range): BP systolic 101–134; BP diastolic 49–70; PULSE 72–101; RESP 18–20; TEMP 36.1–36.6; O2SAT 91–94
[2020-03-31 07:41] LABS: B Type Natriuretic Peptide 111 pg/mL (<100)
[2020-03-31 07:59] LABS: Anion Gap 17 (12-20); Blood Urea Nitrogen 21 mg/dL (9-16); Calcium 8.6 mg/dL (8.4-10.2); Carbon Dioxide 27 mmol/L (22-29); Chloride 101 mmol/L (96-108); Creatinine Clr Calc Pharmacy 30.9; Estimated Glomerular Filt Rate 38; Glucose Random 98 mg/dL (60-115); Magnesium 2.2 mg/dL (1.6-2.6); Potassium 3.9 mmol/L (3.3-5.1); Sodium 141 mmol/L (135-145)
--- NOTE | 2020-03-31 08:00 | XR_ITS ---
EXAMINATION: XR CHEST CLINICAL INFORMATION: Pleural effusions COMPARISON: 03/29/2020 TECHNIQUE: Frontal view of the chest was obtained. FINDINGS: Cardiac leads overlie the chest. The lungs are well expanded. Moderate right-sided pleural effusion is again noted, mildly decreased from prior. Associated hazy opacity. Small left pleural effusion is similar to prior. No pneumothorax. The cardiomediastinal silhouette is unchanged, with a calcified aorta. XR/XR chest 1V IMPRESSION: Moderate right-sided pleural effusion which is mildly decreased from prior. Small left pleural effusion is unchanged.
[2020-03-31] MEDS: Gabapentin 300 MG CAPSULE PO ×3 (08:17→22:13)
[2020-03-31] MEDS: Apixaban 2.5 MG TABLET PO ×2 (08:17→22:13)
[2020-03-31] MEDS: Omeprazole 20 MG CAPSULE.DR PO (08:18)
[2020-03-31] MEDS: Metoprolol Succinate ER 50 MG TAB.ER.24H PO (08:18)
[2020-03-31] MEDS: Digoxin 0.125 MG TABLET PO (08:18)
[2020-03-31] MEDS: Sertraline HCL 50 MG TABLET PO (08:18)
[2020-03-31] MEDS: amLODIPine Besylate 10 MG TABLET PO (08:21)
[2020-03-31] MEDS: Lidocaine 4 % Patch ADH..PATCH 1 PATCH TRANSDERMA (08:21)
[2020-03-31] MEDS: 0.9 % Sodium Chloride Flush 3 ML SYRINGE IVFLUSH ×2 (08:27→16:37)
[2020-03-31] MEDS: Furosemide 40 MG/4 ML VIAL 20 MG IVPUSH (08:28)
--- NOTE | 2020-03-31 08:59 | MHC.CM.PN ---
PT REPORTS SHE LIVES AT HOME WITH HER , IS INDEPENDENT WITH SELF CARE AND HAS BEEN USING A WALKER TO AMBULATE. PT REPORTS SHE IS ACTIVE WITH [facility] FOR SNF AND PHYSICAL THERAPY SERVICES. PT REPORTS HER NURSE IS THE ONE WHO SENT HER TO THE ED SO SHE IS SURE THEY ARE AWARE OF HER ADMISSION. CM WILL UPDATE THEM IN [facility]SCRIPTS WELL. . PT CONFIRMS HER PCP IS BERYL MORRELL AND REPORTS SHE HAS A HCP COMPLETED NAMING HER DAUGHTER HER AGENT. IMM VERBALLY DELIVERED. PT REPORTS UNDERSTANDING. CURRENT DC PLAN IS HOME WITH RESUMPTION OF [facility] PT FAMILY WILL PROVIDE TRANSPORTATION
[2020-03-31 09:21] LABS: Digoxin 1.1 ng/mL (0.8-2.0)
[2020-03-31 10:53] LABS: Anion Gap 17 (12-20); Blood Urea Nitrogen 25 mg/dL (9-16); Calcium 9.1 mg/dL (8.4-10.2); Carbon Dioxide 27 mmol/L (22-29); Chloride 100 mmol/L (96-108); Creatinine Clr Calc Pharmacy 26.1; Estimated Glomerular Filt Rate 31; Glucose Random 119 mg/dL (60-115); Potassium 4.3 mmol/L (3.3-5.1); Sodium 140 mmol/L (135-145)
--- NOTE | 2020-03-31 12:14 | PC.NURSE ---
Ambulated patient without oxygen for activity O2 tolerance assessment. After ambulating with rolling walker with standby assist for 30 feet, o2 sats dropped to 84-86%. O2 at 1.5LMC replaced. sitting up in bedside chair now for lunch. Instructed with Incentive Spirometer. Only able to pull to 500cc. Encouraged IS and C+DB Q1hr.
--- NOTE | 2020-03-31 13:02 | PC.NURSE ---
Dr Singleton aware of decreased tea colored urine output and increasing BUN/Creat levels. Bladder scan done that revealed 10cc in bladder. Awaiting potential new orders
--- NOTE | 2020-03-31 15:39 | PM.PNCARD ---
Subjective Subjective Date of Service: 03/31/20 Interval history: Patient states that she feels okay. No specific complaints. Review of Systems Review of Systems Yes all other systems are reviewed and are negative Cardiovascular: Reports as per HPI, Reports no additional cardiovascular complaints, Denies acrocyanosis, Denies cool extremities, Denies painful fingertips, Denies chest pain, Denies chest pain at rest, Denies diaphoresis, Denies syncope, Denies irregular heart rhythm, Denies claudication, Denies leg edema, Denies lightheadedness, Denies palpitations and Denies dyspnea Respiratory: Denies dyspnea Denies syncope Endocrine: Denies palpitations Physical Exam Vital Signs: Last Vital Signs Temp 97.9 F 03/31/20 15:16 Pulse 72 03/31/20 15:16 Resp 18 03/31/20 15:16 BP 101/49 L 03/31/20 15:16 Pulse Ox 91 L 03/31/20 15:16 Body Mass Index 20.9 Const General: cooperative, comfortable and no acute distress Orientation/consciousness: patient oriented x3 HENMT Other: Unremarkable Neck Neck: Yes normal visual inspection Chest Chest palpation & inspection: normal inspection of the chest Resp Auscultation: clear to auscultation bilaterally, no crackles and no wheezes Cardio Jugular venous distension: no JVD Palpation: normal PMI Heart sounds: S1 normal heart sound present, S2 normal heart sound present, no gallops, no murmurs and no rubs GI Palpation (GI): Soft to palpation Back/Spine/Pelvis Other: unremarkable Skin General skin exam: no rashes or lesions noted Neuro General: patient oriented x3 Extrem General: Yes no clubbing, cyanosis or edema Psych Mental Status: mental status grossly normal Results Labs and Meds Result diagrams: 03/29/20 16:32 03/31/20 10:10 Lab results: Laboratory Results - last 24 hr 03/31/20 03/31/20 03/31/20 05:54 05:54 05:55 Sodium 141 Potassium 3.9 D Chloride 101 Carbon Dioxide 27 Anion Gap 17 BUN 21 H D Creatinine 1.35 Estim Creat Clear Calc 30.9 Estimated GFR 38 Random Glucose 98 D Calcium 8.6 Magnesium 2.2 B-Natriuretic Peptide 111 H Digoxin 1.1 03/31/20 10:10 Sodium 140 Potassium 4.3 Chloride 100 Carbon Dioxide 27 Anion Gap 17 BUN 25 H Creatinine 1.60 H Estim Creat Clear Calc 26.1 Estimated GFR 31 Random Glucose 119 H Calcium 9.1 Magnesium B-Natriuretic Peptide Digoxin Imaging Radiologist's impression: Impressions Chest X-Ray 03/31/20 08:00 IMPRESSION: Moderate right-sided pleural effusion which is mildly decreased from prior. Small left pleural effusion is unchanged. Progress Note: A&P Assessment and plan (1) Atrial fibrillation with rapid ventricular response: Status: Acute (2) Acute diastolic heart failure: Status: Acute (3) Uncontrolled hypertension: Status: Acute Assessment and Plan: Not entirely clear if the effusions are related to heart failure or to the rib fractures (or both). As the creatinine is going up, we can ease on the diuretics. Otherwise continue her rate control meds. May resume anticoagulation. Blood pressure as much as 212/102 mm Hg yesterday but much improved and essentially in the normal range today. Continue her blood pressure medications. We will follow up with you. Fall Risk Details Current Medications: Current Medications Generic Name Dose Route Start Last Admin Trade Name Freq PRN Reason Stop Dose Admin Acetaminophen 650 mg 03/29/20 18:25 03/30/20 02:58 Acetaminophen 325 Mg Tablet PO 650 mg Q6H PRN Administration Pain, Mild (Pain Scale 1-3) Amlodipine Besylate 10 mg 03/30/20 09:00 03/31/20 08:21 Amlodipine Besylate 10 Mg Tablet PO 10 mg DAILY [facility] Administration Protocol Apixaban 2.5 mg 03/29/20 21:00 03/31/20 08:17 Apixaban 2.5 Mg Tablet PO 2.5 mg BID [facility] Administration Atorvastatin Calcium 80 mg 03/29/20 21:00 03/30/20 21:05 Atorvastatin Calcium 80 Mg Tablet PO 80 mg DAILY@2100 [facility]Y Administration Digoxin 0.125 mg 03/30/20 09:00 03/31/20 08:18 Digoxin 0.125 Mg Tablet PO 0.125 mg DAILY [facility] Administration Furosemide 20 mg 03/29/20 21:00 03/31/20 08:28 Furosemide 40 Mg/4 Ml Vial IVPUSH 20 mg BID LINDSAY Administration Protocol Gabapentin 300 mg 03/30/20 09:00 03/31/20 08:17 Gabapentin 300 Mg Capsule PO 300 mg TID [facility]Y Administration Lidocaine 1 patch 03/30/20 09:00 03/31/20 08:21 Lidocaine 4 % Patch Adh..Patch TRANSDERMA 1 patch DAILY [facility] Administration Protocol Lisinopril 10 mg 03/30/20 09:00 03/31/20 08:17 Lisinopril 10 Mg Tablet PO 10 mg DAILY [facility] Administration Protocol Metoprolol Succinate 50 mg 03/30/20 09:00 03/31/20 08:18 Metoprolol Succinate Er 50 Mg Tab.Er.24h PO 50 mg DAILY [facility]Y Administration Protocol Omeprazole 20 mg 03/30/20 09:00 03/31/20 08:18 Omeprazole 20 Mg Capsule.Dr PO 20 mg DAILY [facility] Administration Ondansetron HCl 4 mg 03/30/20 09:52 Ondansetron Hcl 4 Mg/2 Ml Vial IVPUSH Q4H PRN nausea/vomiting Pharmacy Consult 1 each 03/29/20 19:26 Consult Rx Perform Med Rec MISCELLANE ONCE PRN Consult order Sertraline HCl 50 mg 03/30/20 09:00 03/31/20 08:18 Sertraline Hcl 50 Mg Tablet PO 50 mg DAILY [facility] Administration Sodium Chloride 3 ml 03/30/20 00:00 03/31/20 08:27 0.9 % Sodium Chloride Flush 3 Ml Syringe IVFLUSH 3 ml QSHIFT [facility] Administration Tramadol HCl 50 mg 03/30/20 07:25 03/30/20 14:16 Tramadol Hcl 50 Mg Tablet PO 50 mg Q6H PRN Administration Pain Time Spent With Patient Time: Total time spent is greater than 50% in coordination of care (as documented) at patient's floor/unit and/or counseling patient: Time with patient: less than 15 minutes
--- NOTE | 2020-03-31 17:29 | HO.PM.IMPN ---
Subjective Subjective Date of Service: 03/31/20 Interval History: CHF exacerbation Review of Systems Shortness of breath seems improving, denies any chest pain or palpitation or abdominal pain or fever or chills or any weakness or numbness. Or urinary complaints. Physical Exam Vital Signs: Vital Signs: Last Vital Signs Temp 97.9 F 03/31/20 15:16 Pulse 72 03/31/20 15:16 Resp 18 03/31/20 15:16 BP 101/49 L 03/31/20 15:16 Pulse Ox 91 L 03/31/20 15:16 Body Mass Index 20.9 Physical exam Constitutional: Not in acute distress Cvs: rrr, [id number] , no murmur res: slightly diminshed at bases,no rhonchii or wheezing abd: no rebound or guarding ,nt, bs present. ext pulses present , no cyanosis neuro: axo3 , nonfocal. Objective Data Current Medications Generic Name Dose Route Start Last Admin Trade Name Freq PRN Reason Stop Dose Admin Acetaminophen 650 mg 03/29/20 18:25 03/30/20 02:58 Acetaminophen 325 Mg Tablet PO 650 mg Q6H PRN Administration Pain, Mild (Pain Scale 1-3) Amlodipine Besylate 10 mg 03/30/20 09:00 03/31/20 08:21 Amlodipine Besylate 10 Mg Tablet PO 10 mg DAILY LINDSAY Administration Protocol Apixaban 2.5 mg 03/29/20 21:00 03/31/20 08:17 Apixaban 2.5 Mg Tablet PO 2.5 mg BID LINDSAY Administration Atorvastatin Calcium 80 mg 03/29/20 21:00 03/30/20 21:05 Atorvastatin Calcium 80 Mg Tablet PO 80 mg DAILY@2100 LINDSAY Administration Digoxin 0.125 mg 03/30/20 09:00 03/31/20 08:18 Digoxin 0.125 Mg Tablet PO 0.125 mg DAILY LINDSAY Administration Gabapentin 300 mg 03/30/20 09:00 03/31/20 16:36 Gabapentin 300 Mg Capsule PO 300 mg TID LINDSAY Administration Lidocaine 1 patch 03/30/20 09:00 03/31/20 08:21 Lidocaine 4 % Patch Adh..Patch TRANSDERMA 1 patch DAILY LINDSAY Administration Protocol Lisinopril 10 mg 03/30/20 09:00 03/31/20 08:17 Lisinopril 10 Mg Tablet PO 10 mg DAILY LINDSAY Administration Protocol Metoprolol Succinate 50 mg 03/30/20 09:00 03/31/20 08:18 Metoprolol Succinate Er 50 Mg Tab.Er.24h PO 50 mg DAILY LINDSAY Administration Protocol Omeprazole 20 mg 03/30/20 09:00 03/31/20 08:18 Omeprazole 20 Mg Capsule.Dr PO 20 mg DAILY LINDSAY Administration Ondansetron HCl 4 mg 03/30/20 09:52 Ondansetron Hcl 4 Mg/2 Ml Vial IVPUSH Q4H PRN nausea/vomiting Pharmacy Consult 1 each 03/29/20 19:26 Consult Rx Perform Med Rec MISCELLANE ONCE PRN Consult order Sertraline HCl 50 mg 03/30/20 09:00 03/31/20 08:18 Sertraline Hcl 50 Mg Tablet PO 50 mg DAILY LINDSAY Administration Sodium Chloride 3 ml 03/30/20 00:00 03/31/20 16:37 0.9 % Sodium Chloride Flush 3 Ml Syringe IVFLUSH 3 ml QSHIFT LINDSAY Administration Tramadol HCl 50 mg 03/30/20 07:25 03/30/20 14:16 Tramadol Hcl 50 Mg Tablet PO 50 mg Q6H PRN Administration Pain Labs CBC & Chem 7: 03/29/20 16:32 03/31/20 10:10 Assessment and Plan (1) Acute diastolic heart failure: Status: Acute Assessment and Plan: 79yo F with recently diagnosed AF, recent traumatic rib fractures with hemopneumothorax admitted to [facility] trauma service admitted with CHF exacerbation and pleural effusions 1. acute/chronic HFpEF exacerbation hold IV diuresis, monitor I/O + BMP/BNP/Mg continue metoprolol succinate , hold lisinopril Cardio following garett : Probably multifactorial related to fluctuating blood pressure, medications/lisinopril/Lasix. Will hold off blood pressure medication and monitor blood pressure closely, patient was encouraged to take to 250 mL p.o.q6hr hydration 2. pleural effusions- likely related to recent hemothorax as well as CHF. diursese as above, repeat CXR in am cxr today-Moderate right-sided pleural effusion which is mildly decreased from prior. Small left pleural effusion is unchanged 3. AF- continue B-link + digoxin [check level] for rate control, started apixaban 2.5 mg bid for anticoagulation. cardio following 4. chest pain- troponin flat. treat rib pain with lidocaine patch. pt also on tramadol. 5. HTN- blood pressure boderline -continue metoprolol , hold lisionpril + amlodipine 6.GERD- continue PPI 7. depression- continue sertraline.
[2020-03-31] MEDS: Atorvastatin Calcium 80 MG TABLET PO (22:13)
[2020-04-01] VITALS (8 sets, daily range): BP systolic 80–154; BP diastolic 58–75; PULSE 68–96; RESP 18–20; TEMP 36.1–37.1; O2SAT 86–98
[2020-04-01] MEDS: 0.9 % Sodium Chloride Flush 3 ML SYRINGE IVFLUSH ×3 (01:43→17:11)
[2020-04-01] MEDS: Digoxin 0.125 MG TABLET PO (09:13)
[2020-04-01] MEDS: Gabapentin 300 MG CAPSULE PO ×3 (09:13→20:37)
[2020-04-01] MEDS: Apixaban 2.5 MG TABLET PO ×2 (09:13→20:37)
[2020-04-01] MEDS: Metoprolol Succinate ER 50 MG TAB.ER.24H PO (09:13)
[2020-04-01] MEDS: Omeprazole 20 MG CAPSULE.DR PO (09:20)
[2020-04-01] MEDS: Lidocaine 4 % Patch ADH..PATCH 1 PATCH TRANSDERMA (09:24)
[2020-04-01] MEDS: Sertraline HCL 50 MG TABLET PO (09:25)
[2020-04-01 09:36] LABS: Anion Gap 14 (12-20); Blood Urea Nitrogen 29 mg/dL (9-16); Calcium 8.8 mg/dL (8.4-10.2); Carbon Dioxide 28 mmol/L (22-29); Chloride 98 mmol/L (96-108); Estimated Glomerular Filt Rate 49; Glucose Random 172 mg/dL (60-115); Potassium 3.5 mmol/L (3.3-5.1); Sodium 136 mmol/L (135-145)
[2020-04-01] MEDS: Acetaminophen 325 MG TABLET 650 MG PO (11:48)
--- NOTE | 2020-04-01 13:33 | MHC.CM.PN ---
DP is resumption of Home care services with [facility]. Transportation will be provided by Family. LOS R/T Renal status. Lasix is on hold. CM will follow.
--- NOTE | 2020-04-01 14:30 | PM.PNCARD ---
Subjective Subjective Date of Service: 04/01/20 Interval history: She states that she feels okay. No specific cardiac complaints. Review of Systems Review of Systems Yes all other systems are reviewed and are negative Cardiovascular: Reports as per HPI, Reports no additional cardiovascular complaints, Denies acrocyanosis, Denies cool extremities, Denies painful fingertips, Denies chest pain, Denies chest pain at rest, Denies diaphoresis, Denies syncope, Denies irregular heart rhythm, Denies claudication, Denies leg edema, Denies lightheadedness, Denies palpitations and Denies dyspnea Respiratory: Denies dyspnea Denies syncope Endocrine: Denies palpitations Physical Exam Vital Signs: Last Vital Signs Temp 97 F 04/01/20 12:00 Pulse 82 04/01/20 12:00 Resp 18 04/01/20 12:00 BP 80/60 L 04/01/20 12:00 Pulse Ox 93 04/01/20 12:00 Body Mass Index 20.9 Const General: cooperative, comfortable and no acute distress Orientation/consciousness: patient oriented x3 HENMT Other: Unremarkable Neck Neck: Yes normal visual inspection Chest Chest palpation & inspection: normal inspection of the chest Resp Auscultation: clear to auscultation bilaterally, no crackles and no wheezes Cardio Jugular venous distension: no JVD Palpation: normal PMI Heart sounds: S1 normal heart sound present, S2 normal heart sound present, no gallops, no murmurs and no rubs GI Palpation (GI): Soft to palpation Back/Spine/Pelvis Other: unremarkable Skin General skin exam: no rashes or lesions noted Neuro General: patient oriented x3 Extrem General: Yes no clubbing, cyanosis or edema Psych Mental Status: mental status grossly normal Results Labs and Meds Result diagrams: 03/29/20 16:32 04/01/20 08:55 Lab results: Laboratory Results - last 24 hr 04/01/20 08:55 Sodium 136 Potassium 3.5 Chloride 98 Carbon Dioxide 28 Anion Gap 14 BUN 29 H Creatinine 1.07 Estim Creat Clear Calc 39.0 Estimated GFR 49 Random Glucose 172 H D Calcium 8.8 ECG Attestation: I personally reviewed and interpreted this ECG as follows: Interpretation: Telemetry with atrial fibrillation in the 80s. PVCs. Progress Note: A&P Assessment and plan (1) Atrial fibrillation with rapid ventricular response: Status: Acute (2) Acute diastolic heart failure: Status: Acute (3) Uncontrolled hypertension: Status: Acute Assessment and Plan: Not entirely clear if the effusions are related to heart failure or to the rib fractures (or both). As the creatinine is going up, we can ease on the diuretics. Clinically, she does not appear to be volume overloaded. Otherwise continue her rate control meds-beta blockers and digoxin. Back on anticoagulation. Blood pressure as much as 212/102 mmHg initially, but much improved and actually on the lower side today. Appears labile. We will follow up with you. Fall Risk Details Current Medications: Current Medications Generic Name Dose Route Start Last Admin Trade Name Freq PRN Reason Stop Dose Admin Acetaminophen 650 mg 03/29/20 18:25 04/01/20 11:48 Acetaminophen 325 Mg Tablet PO 650 mg Q6H PRN Administration Pain, Mild (Pain Scale 1-3) Amlodipine Besylate 10 mg 03/30/20 09:00 03/31/20 08:21 Amlodipine Besylate 10 Mg Tablet PO 10 mg DAILY LINDSAY Administration Protocol Apixaban 2.5 mg 03/29/20 21:00 04/01/20 09:13 Apixaban 2.5 Mg Tablet PO 2.5 mg BID LINDSAY Administration Atorvastatin Calcium 80 mg 03/29/20 21:00 03/31/20 22:13 Atorvastatin Calcium 80 Mg Tablet PO 80 mg DAILY@2100 LINDSAY Administration Digoxin 0.125 mg 03/30/20 09:00 04/01/20 09:13 Digoxin 0.125 Mg Tablet PO 0.125 mg DAILY LINDSAY Administration Gabapentin 300 mg 03/30/20 09:00 04/01/20 09:13 Gabapentin 300 Mg Capsule PO 300 mg TID LINDSAY Administration Lidocaine 1 patch 03/30/20 09:00 04/01/20 09:24 Lidocaine 4 % Patch Adh..Patch TRANSDERMA 1 patch DAILY LINDSAY Administration Protocol Lisinopril 10 mg 03/30/20 09:00 03/31/20 08:17 Lisinopril 10 Mg Tablet PO 10 mg DAILY LINDSAY Administration Protocol Metoprolol Succinate 50 mg 03/30/20 09:00 04/01/20 09:13 Metoprolol Succinate Er 50 Mg Tab.Er.24h PO 50 mg DAILY LINDSAY Administration Protocol Omeprazole 20 mg 03/30/20 09:00 04/01/20 09:20 Omeprazole 20 Mg Capsule.Dr PO 20 mg DAILY LINDSAY Administration Ondansetron HCl 4 mg 03/30/20 09:52 Ondansetron Hcl 4 Mg/2 Ml Vial IVPUSH Q4H PRN nausea/vomiting Pharmacy Consult 1 each 03/29/20 19:26 Consult Rx Perform Med Rec MISCELLANE ONCE PRN Consult order Sertraline HCl 50 mg 03/30/20 09:00 04/01/20 09:25 Sertraline Hcl 50 Mg Tablet PO 50 mg DAILY LINDSAY Administration Sodium Chloride 3 ml 03/30/20 00:00 04/01/20 09:19 0.9 % Sodium Chloride Flush 3 Ml Syringe IVFLUSH 3 ml QSHIFT LINDSAY Administration Tramadol HCl 50 mg 03/30/20 07:25 03/30/20 14:16 Tramadol Hcl 50 Mg Tablet PO 50 mg Q6H PRN Administration Pain Time Spent With Patient Time: Total time spent is greater than 50% in coordination of care (as documented) at patient's floor/unit and/or counseling patient: Time with patient: less than 15 minutes
[2020-04-01] MEDS: traMADoL HCL 50 MG TABLET PO (15:35)
--- NOTE | 2020-04-01 16:36 | HO.PM.IMPN ---
Subjective Subjective Date of Service: 04/01/20 Interval History: CHF exacerbation, borderline blood pressure. Review of Systems Patient shortness of breath seems to be improving, tapering oxygen Denies any chest pain or abdominal pain or nausea or vomiting or fever chills. Physical Exam Vital Signs: Vital Signs: Last Vital Signs Temp 97.3 F 04/01/20 15:21 Pulse 72 04/01/20 15:21 Resp 20 04/01/20 15:21 BP 118/58 L 04/01/20 15:21 Pulse Ox 86 L 04/01/20 15:21 Body Mass Index 20.9 Physical exam: Constitutional: Not in acute distress Cvs: rrr, [id number] , no murmur res: clear to auscultation ,no rhonchii or wheezing abd: no rebound or guarding ,nt, bs present. ext pulses present , no cyanosis neuro: axo3 , nonfocal. Objective Data Current Medications Generic Name Dose Route Start Last Admin Trade Name Freq PRN Reason Stop Dose Admin Acetaminophen 650 mg 03/29/20 18:25 04/01/20 11:48 Acetaminophen 325 Mg Tablet PO 650 mg Q6H PRN Administration Pain, Mild (Pain Scale 1-3) Amlodipine Besylate 10 mg 03/30/20 09:00 03/31/20 08:21 Amlodipine Besylate 10 Mg Tablet PO 10 mg DAILY LINDSAY Administration Protocol Apixaban 2.5 mg 03/29/20 21:00 04/01/20 09:13 Apixaban 2.5 Mg Tablet PO 2.5 mg BID LINDSAY Administration Atorvastatin Calcium 80 mg 03/29/20 21:00 03/31/20 22:13 Atorvastatin Calcium 80 Mg Tablet PO 80 mg DAILY@2100 LINDSAY Administration Digoxin 0.125 mg 03/30/20 09:00 04/01/20 09:13 Digoxin 0.125 Mg Tablet PO 0.125 mg DAILY LINDSAY Administration Gabapentin 300 mg 03/30/20 09:00 04/01/20 16:06 Gabapentin 300 Mg Capsule PO 300 mg TID LINDSAY Administration Lidocaine 1 patch 03/30/20 09:00 04/01/20 09:24 Lidocaine 4 % Patch Adh..Patch TRANSDERMA 1 patch DAILY LINDSAY Administration Protocol Lisinopril 10 mg 03/30/20 09:00 03/31/20 08:17 Lisinopril 10 Mg Tablet PO 10 mg DAILY LINDSAY Administration Protocol Metoprolol Succinate 50 mg 03/30/20 09:00 04/01/20 09:13 Metoprolol Succinate Er 50 Mg Tab.Er.24h PO 50 mg DAILY LINDSAY Administration Protocol Omeprazole 20 mg 03/30/20 09:00 04/01/20 09:20 Omeprazole 20 Mg Capsule.Dr PO 20 mg DAILY LINDSAY Administration Ondansetron HCl 4 mg 03/30/20 09:52 Ondansetron Hcl 4 Mg/2 Ml Vial IVPUSH Q4H PRN nausea/vomiting Pharmacy Consult 1 each 03/29/20 19:26 Consult Rx Perform Med Rec MISCELLANE ONCE PRN Consult order Sertraline HCl 50 mg 03/30/20 09:00 04/01/20 09:25 Sertraline Hcl 50 Mg Tablet PO 50 mg DAILY LINDSAY Administration Sodium Chloride 3 ml 03/30/20 00:00 04/01/20 09:19 0.9 % Sodium Chloride Flush 3 Ml Syringe IVFLUSH 3 ml QSHIFT LINDSAY Administration Tramadol HCl 50 mg 03/30/20 07:25 04/01/20 15:35 Tramadol Hcl 50 Mg Tablet PO 50 mg Q6H PRN Administration Pain Labs CBC & Chem 7: 03/29/20 16:32 04/01/20 08:55 Assessment and Plan (1) Pleural effusion: Status: Acute (2) Acute diastolic heart failure: Status: Acute Assessment and Plan: 79yo F with recently diagnosed AF, recent traumatic rib fractures with hemopneumothorax admitted to [facility] trauma service admitted with CHF exacerbation and pleural effusions 1. acute/chronic HFpEF exacerbation hold IV diuresis-softer blood pressure , monitor I/O + BMP/BNP/Mg continue metoprolol succinate , hold lisinopril Cardio following garett : Probably multifactorial related to fluctuating blood pressure, medications/lisinopril/Lasix. Will hold off blood pressure medication and monitor blood pressure closely, patient was encouraged to take to 250 mL p.o.q6hr hydration 2. pleural effusions- likely related to recent hemothorax as well as CHF. diursese as above, repeat cxr -Moderate right-sided pleural effusion which is mildly decreased from prior. Small left pleural effusion is unchanged 3. AF- continue B-link + digoxin [check level] for rate control, started apixaban 2.5 mg bid for anticoagulation. cardio following 4. chest pain- troponin flat. treat rib pain with lidocaine patch. pt also on tramadol. Incentive [place], chest physio 5. HTN- blood pressure boderline -continue metoprolol , hold lisionpril + amlodipine 6.GERD- continue PPI 7. depression- continue sertraline.
[2020-04-01] MEDS: Atorvastatin Calcium 80 MG TABLET PO (20:37)
[2020-04-02] VITALS (9 sets, daily range): BP systolic 123–156; BP diastolic 62–81; PULSE 75–86; RESP 17–18; TEMP 36–36.6; O2SAT 90–94
[2020-04-02] MEDS: 0.9 % Sodium Chloride Flush 3 ML SYRINGE IVFLUSH ×4 (00:05→21:15)
[2020-04-02 07:18] LABS: Anion Gap 16 (12-20); Blood Urea Nitrogen 34 mg/dL (9-16); Calcium 8.9 mg/dL (8.4-10.2); Carbon Dioxide 27 mmol/L (22-29); Chloride 97 mmol/L (96-108); Estimated Glomerular Filt Rate 55; Glucose Fasting 115 mg/dL (60-99); Sodium 136 mmol/L (135-145)
[2020-04-02] MEDS: Lidocaine 4 % Patch ADH..PATCH 1 PATCH TRANSDERMA (08:40)
[2020-04-02] MEDS: Gabapentin 300 MG CAPSULE PO ×3 (08:40→21:13)
[2020-04-02] MEDS: Sertraline HCL 50 MG TABLET PO (08:40)
[2020-04-02] MEDS: Digoxin 0.125 MG TABLET PO (08:40)
[2020-04-02] MEDS: Metoprolol Succinate ER 50 MG TAB.ER.24H PO (08:40)
[2020-04-02] MEDS: Apixaban 2.5 MG TABLET PO ×2 (08:40→21:13)
[2020-04-02] MEDS: Omeprazole 20 MG CAPSULE.DR PO (08:40)
[2020-04-02] MEDS: Famotidine 20 MG TABLET PO (10:41)
--- NOTE | 2020-04-02 11:00 | PM.PNCARD ---
Subjective Subjective Date of Service: 04/02/20 Interval history: She states that she feels okay. No specific cardiac complaints. Review of Systems Review of Systems Yes all other systems are reviewed and are negative Cardiovascular: Reports as per HPI, Reports no additional cardiovascular complaints, Denies acrocyanosis, Denies cool extremities, Denies painful fingertips, Denies chest pain, Denies chest pain at rest, Denies diaphoresis, Denies syncope, Denies irregular heart rhythm, Denies claudication, Denies leg edema, Denies lightheadedness, Denies palpitations and Denies dyspnea Respiratory: Denies dyspnea Denies syncope Endocrine: Denies palpitations Physical Exam Vital Signs: Last Vital Signs Temp 96.8 F 04/02/20 08:00 Pulse 75 04/02/20 08:40 Resp 18 04/02/20 08:00 BP 145/72 H 04/02/20 08:40 Pulse Ox 91 L 04/02/20 10:15 Body Mass Index 20.9 Const General: cooperative, comfortable and no acute distress Orientation/consciousness: patient oriented x3 HENMT Other: Unremarkable Neck Neck: Yes normal visual inspection Chest Chest palpation & inspection: normal inspection of the chest Resp Auscultation: no crackles, no wheezes and diminished lung sounds on the right Cardio Jugular venous distension: no JVD Palpation: normal PMI Heart sounds: S1 normal heart sound present, S2 normal heart sound present, no gallops, no murmurs and no rubs GI Palpation (GI): Soft to palpation Back/Spine/Pelvis Other: unremarkable Skin General skin exam: no rashes or lesions noted Neuro General: patient oriented x3 Extrem General: Yes no clubbing, cyanosis or edema Psych Mental Status: mental status grossly normal Results Labs and Meds Result diagrams: 03/29/20 16:32 04/02/20 05:49 Lab results: Laboratory Results - last 24 hr 04/02/20 05:49 Sodium 136 Potassium 4.0 Chloride 97 Carbon Dioxide 27 Anion Gap 16 BUN 34 H Creatinine 0.97 Estim Creat Clear Calc 43.0 Estimated GFR 55 Fasting Glucose 115 H Calcium 8.9 Progress Note: A&P Assessment and plan (1) Atrial fibrillation with rapid ventricular response: Status: Acute (2) Acute diastolic heart failure: Status: Acute (3) Uncontrolled hypertension: Status: Acute Assessment and Plan: Not entirely clear if the effusions are related to heart failure or to the rib fractures (or both). May need thoracentesis. As the creatinine is going up, diuretics on hold. Clinically, she does not appear to be volume overloaded. Otherwise continue her rate control meds-beta blockers and digoxin. Back on anticoagulation. Blood pressure as much as 212/102 mmHg initially, but much improved and actually very labile and has gone as low 80s. Final BP meds yet to be decided. Fall Risk Details Current Medications: Current Medications Generic Name Dose Route Start Last Admin Trade Name Freq PRN Reason Stop Dose Admin Acetaminophen 650 mg 03/29/20 18:25 04/01/20 11:48 Acetaminophen 325 Mg Tablet PO 650 mg Q6H PRN Administration Pain, Mild (Pain Scale 1-3) Amlodipine Besylate 10 mg 03/30/20 09:00 03/31/20 08:21 Amlodipine Besylate 10 Mg Tablet PO 10 mg DAILY LINDSAY Administration Protocol Apixaban 2.5 mg 03/29/20 21:00 04/02/20 08:40 Apixaban 2.5 Mg Tablet PO 2.5 mg BID LINDSAY Administration Atorvastatin Calcium 80 mg 03/29/20 21:00 04/01/20 20:37 Atorvastatin Calcium 80 Mg Tablet PO 80 mg DAILY@2100 LINDSAY Administration Digoxin 0.125 mg 03/30/20 09:00 04/02/20 08:40 Digoxin 0.125 Mg Tablet PO 0.125 mg DAILY LINDSAY Administration Gabapentin 300 mg 03/30/20 09:00 04/02/20 08:40 Gabapentin 300 Mg Capsule PO 300 mg TID LINDSAY Administration Lidocaine 1 patch 03/30/20 09:00 04/02/20 08:40 Lidocaine 4 % Patch Adh..Patch TRANSDERMA 1 patch DAILY LINDSAY Administration Protocol Lisinopril 10 mg 03/30/20 09:00 03/31/20 08:17 Lisinopril 10 Mg Tablet PO 10 mg DAILY LINDSAY Administration Protocol Metoprolol Succinate 50 mg 03/30/20 09:00 04/02/20 08:40 Metoprolol Succinate Er 50 Mg Tab.Er.24h PO 50 mg DAILY LINDSAY Administration Protocol Omeprazole 20 mg 03/30/20 09:00 04/02/20 08:40 Omeprazole 20 Mg Capsule.Dr PO 20 mg DAILY LINDSAY Administration Ondansetron HCl 4 mg 03/30/20 09:52 Ondansetron Hcl 4 Mg/2 Ml Vial IVPUSH Q4H PRN nausea/vomiting Pharmacy Consult 1 each 03/29/20 19:26 Consult Rx Perform Med Rec MISCELLANE ONCE PRN Consult order Sertraline HCl 50 mg 03/30/20 09:00 04/02/20 08:40 Sertraline Hcl 50 Mg Tablet PO 50 mg DAILY LINDSAY Administration Sodium Chloride 3 ml 03/30/20 00:00 04/02/20 08:41 0.9 % Sodium Chloride Flush 3 Ml Syringe IVFLUSH 3 ml QSHIFT LINDSAY Administration Tramadol HCl 50 mg 03/30/20 07:25 04/01/20 15:35 Tramadol Hcl 50 Mg Tablet PO 50 mg Q6H PRN Administration Pain Time Spent With Patient Time: Total time spent is greater than 50% in coordination of care (as documented) at patient's floor/unit and/or counseling patient: Time with patient: 15 - 24 minutes
--- NOTE | 2020-04-02 13:51 | PC.NURSE ---
Pt placed on 2L NC overnight for low o2 sat. Pt satting well this am, titrated to RA, pt tolerating, no sob, trouble breathing.
--- NOTE | 2020-04-02 14:07 | HO.PM.IMPN ---
Subjective Subjective Date of Service: 04/03/20 Interval History: CHF exacerbation, borderline blood pressure. Review of Systems Patient blood pressure is still borderline, feels short of breath than sit up Denies any abdominal pain or chest pain or nausea or vomiting or diarrhea. Physical Exam Vital Signs: Vital Signs: Last Vital Signs Temp 96.8 F 04/02/20 08:00 Pulse 75 04/02/20 08:40 Resp 18 04/02/20 08:00 BP 145/72 H 04/02/20 08:40 Pulse Ox 91 L 04/02/20 10:15 Body Mass Index 20.9 Physical exam: Constitutional: Not in acute distress Cvs: rrr, [id number] , no murmur res: fair air entry , seems slightly diminshed at bases ,no rhonchii or wheezing abd: no rebound or guarding ,nt, bs present. ext pulses present , no cyanosis neuro: axo3 , nonfocal. Objective Data Current Medications Generic Name Dose Route Start Last Admin Trade Name Freq PRN Reason Stop Dose Admin Acetaminophen 650 mg 03/29/20 18:25 04/01/20 11:48 Acetaminophen 325 Mg Tablet PO 650 mg Q6H PRN Administration Pain, Mild (Pain Scale 1-3) Amlodipine Besylate 10 mg 03/30/20 09:00 03/31/20 08:21 Amlodipine Besylate 10 Mg Tablet PO 10 mg DAILY LINDSAY Administration Protocol Apixaban 2.5 mg 03/29/20 21:00 04/02/20 08:40 Apixaban 2.5 Mg Tablet PO 2.5 mg BID LINDSAY Administration Atorvastatin Calcium 80 mg 03/29/20 21:00 04/01/20 20:37 Atorvastatin Calcium 80 Mg Tablet PO 80 mg DAILY@2100 LINDSAY Administration Digoxin 0.125 mg 03/30/20 09:00 04/02/20 08:40 Digoxin 0.125 Mg Tablet PO 0.125 mg DAILY LINDSAY Administration Gabapentin 300 mg 03/30/20 09:00 04/02/20 08:40 Gabapentin 300 Mg Capsule PO 300 mg TID LINDSAY Administration Lidocaine 1 patch 03/30/20 09:00 04/02/20 08:40 Lidocaine 4 % Patch Adh..Patch TRANSDERMA 1 patch DAILY LINDSAY Administration Protocol Lisinopril 10 mg 03/30/20 09:00 03/31/20 08:17 Lisinopril 10 Mg Tablet PO 10 mg DAILY LINDSAY Administration Protocol Metoprolol Succinate 50 mg 03/30/20 09:00 04/02/20 08:40 Metoprolol Succinate Er 50 Mg Tab.Er.24h PO 50 mg DAILY LINDSAY Administration Protocol Omeprazole 20 mg 03/30/20 09:00 04/02/20 08:40 Omeprazole 20 Mg Capsule.Dr PO 20 mg DAILY LINDSAY Administration Ondansetron HCl 4 mg 03/30/20 09:52 Ondansetron Hcl 4 Mg/2 Ml Vial IVPUSH Q4H PRN nausea/vomiting Pharmacy Consult 1 each 03/29/20 19:26 Consult Rx Perform Med Rec MISCELLANE ONCE PRN Consult order Sertraline HCl 50 mg 03/30/20 09:00 04/02/20 08:40 Sertraline Hcl 50 Mg Tablet PO 50 mg DAILY LINDSAY Administration Sodium Chloride 3 ml 03/30/20 00:00 04/02/20 08:41 0.9 % Sodium Chloride Flush 3 Ml Syringe IVFLUSH 3 ml QSHIFT LINDSAY Administration Tramadol HCl 50 mg 03/30/20 07:25 04/01/20 15:35 Tramadol Hcl 50 Mg Tablet PO 50 mg Q6H PRN Administration Pain Labs CBC & Chem 7: 03/29/20 16:32 04/02/20 05:49 Assessment and Plan (1) Pleural effusion: Status: Acute (2) Acute diastolic heart failure: Status: Acute Assessment and Plan: 79yo F with recently diagnosed AF, recent traumatic rib fractures with hemopneumothorax admitted to [facility] trauma service admitted with CHF exacerbation and pleural effusions 1. acute/chronic HFpEF exacerbation monitor I/O + BMP/BNP/Mg Blood pressure still fluctuating but improving, continue metoprolol succinate , hold lisinopril Will hold off on Lasix because she seems more euvolemic. Cardio following garett : Probably multifactorial related to fluctuating blood pressure, medications/lisinopril/Lasix. seems improving . Blood pressure still fluctuating. patient was encouraged to take to 250 mL p.o.q6hr hydration-seems improved with above 2. pleural effusions- likely related to recent hemothorax as well as CHF. diursese as above, repeat cxr -Moderate right-sided pleural effusion which is mildly decreased from prior. Small left pleural effusion is unchanged 3. AF- continue B-link + digoxin [check level] for rate control, started apixaban 2.5 mg bid for anticoagulation. cardio following 4. chest pain- troponin flat. treat rib pain with lidocaine patch. pt also on tramadol. Incentive [place], chest physio 5. HTN- blood pressure boderline -continue metoprolol , hold lisionpril + amlodipine 6.GERD- continue PPI 7. depression- continue sertraline.
[2020-04-02] MEDS: ondansetron HCL 4 MG/2 ML VIAL IVPUSH (15:53)
[2020-04-02] MEDS: Atorvastatin Calcium 80 MG TABLET PO (21:13)
[2020-04-03] VITALS (8 sets, daily range): BP systolic 114–160; BP diastolic 63–82; PULSE 65–92; RESP 13–18; TEMP 36–36.7; O2SAT 90–96
[2020-04-03] MEDS: ondansetron HCL 4 MG/2 ML VIAL IVPUSH (08:42)
[2020-04-03] MEDS: Metoprolol Succinate ER 50 MG TAB.ER.24H PO (08:45)
[2020-04-03] MEDS: Digoxin 0.125 MG TABLET PO (08:46)
[2020-04-03] MEDS: Sertraline HCL 50 MG TABLET PO (08:46)
[2020-04-03] MEDS: Apixaban 2.5 MG TABLET PO ×2 (08:47→21:25)
[2020-04-03] MEDS: Lidocaine 4 % Patch ADH..PATCH 1 PATCH TRANSDERMA (08:51)
[2020-04-03] MEDS: amLODIPine Besylate 2.5 MG TABLET PO (08:55)
[2020-04-03] MEDS: Gabapentin 300 MG CAPSULE PO ×3 (08:58→21:25)
[2020-04-03] MEDS: 0.9 % Sodium Chloride Flush 3 ML SYRINGE IVFLUSH ×3 (08:59→21:31)
[2020-04-03] MEDS: Omeprazole 20 MG CAPSULE.DR PO (09:02)
--- NOTE | 2020-04-03 11:51 | PM.PNCARD ---
Subjective Subjective Date of Service: 04/03/20 Interval history: Denies any specific cardiac complaints. States that she feels okay. Review of Systems Review of Systems Yes all other systems are reviewed and are negative Cardiovascular: Reports as per HPI, Reports no additional cardiovascular complaints, Denies acrocyanosis, Denies cool extremities, Denies painful fingertips, Denies chest pain, Denies chest pain at rest, Denies diaphoresis, Denies syncope, Denies irregular heart rhythm, Denies claudication, Denies leg edema, Denies lightheadedness, Denies palpitations and Denies dyspnea Respiratory: Denies dyspnea Denies syncope Endocrine: Denies palpitations Physical Exam Vital Signs: Last Vital Signs Temp 97.0 F 04/03/20 07:31 Pulse 92 04/03/20 08:55 Resp 13 04/03/20 07:31 BP 160/82 H 04/03/20 08:55 Pulse Ox 93 04/03/20 07:31 Body Mass Index 20.9 Const General: cooperative, comfortable and no acute distress Orientation/consciousness: patient oriented x3 HENMT Other: Unremarkable Neck Neck: Yes normal visual inspection Chest Chest palpation & inspection: normal inspection of the chest Resp Auscultation: no crackles, no wheezes and diminished lung sounds on the right Cardio Jugular venous distension: no JVD Palpation: normal PMI Heart sounds: S1 normal heart sound present, S2 normal heart sound present, no gallops, no murmurs and no rubs GI Palpation (GI): Soft to palpation Back/Spine/Pelvis Other: unremarkable Skin General skin exam: no rashes or lesions noted Neuro General: patient oriented x3 Extrem General: Yes no clubbing, cyanosis or edema Psych Mental Status: mental status grossly normal Results Labs and Meds Result diagrams: 03/29/20 16:32 04/02/20 05:49 ECG Attestation: I personally reviewed and interpreted this ECG as follows: Interpretation: Telemetry with atrial fibrillation in the 80s. Occasional PVCs. Progress Note: A&P Assessment and plan (1) Atrial fibrillation with rapid ventricular response: Status: Acute (2) Acute diastolic heart failure: Status: Acute (3) Uncontrolled hypertension: Status: Acute Assessment and Plan: Not entirely clear if the effusions are related to heart failure or to the rib fractures (or both). Clinically, she does not appear to be volume overloaded at this time but may need low dose diuretic on discharge. Otherwise continue her rate control meds-beta blockers and digoxin. Back on anticoagulation. Blood pressure as much as 212/102 mmHg initially, but much improved and actually very labile and has gone as low 80s. Today's blood pressure is again on the higher side. Possibly go up on the beta-link dosing which will also help her atrial fibrillation. Fall Risk Details Current Medications: Current Medications Generic Name Dose Route Start Last Admin Trade Name Daina PRN Reason Stop Dose Admin Acetaminophen 650 mg 03/29/20 18:25 04/01/20 11:48 Acetaminophen 325 Mg Tablet PO 650 mg Q6H PRN Administration Pain, Mild (Pain Scale 1-3) Amlodipine Besylate 2.5 mg 04/03/20 09:00 04/03/20 08:55 Amlodipine Besylate 2.5 Mg Tablet PO 2.5 mg DAILY LINDSAY Administration Protocol Apixaban 2.5 mg 03/29/20 21:00 04/03/20 08:47 Apixaban 2.5 Mg Tablet PO 2.5 mg BID LINDSAY Administration Atorvastatin Calcium 80 mg 03/29/20 21:00 04/02/20 21:13 Atorvastatin Calcium 80 Mg Tablet PO 80 mg DAILY@2100 LINDSAY Administration Digoxin 0.125 mg 03/30/20 09:00 04/03/20 08:46 Digoxin 0.125 Mg Tablet PO 0.125 mg DAILY LINDSAY Administration Gabapentin 300 mg 03/30/20 09:00 04/03/20 08:58 Gabapentin 300 Mg Capsule PO 300 mg TID LINDSAY Administration Lidocaine 1 patch 03/30/20 09:00 04/03/20 08:51 Lidocaine 4 % Patch Adh..Patch TRANSDERMA 1 patch DAILY LINDSAY Administration Protocol Lisinopril 10 mg 03/30/20 09:00 04/03/20 08:44 Lisinopril 10 Mg Tablet PO 10 mg DAILY LINDSAY Administration Protocol Metoprolol Succinate 50 mg 03/30/20 09:00 04/03/20 08:45 Metoprolol Succinate Er 50 Mg Tab.Er.24h PO 50 mg DAILY LINDSAY Administration Protocol Omeprazole 20 mg 03/30/20 09:00 04/03/20 09:02 Omeprazole 20 Mg Capsule.Dr PO 20 mg DAILY LINDSAY Administration Ondansetron HCl 4 mg 03/30/20 09:52 04/03/20 08:42 Ondansetron Hcl 4 Mg/2 Ml Vial IVPUSH 4 mg Q4H PRN Administration nausea/vomiting Pharmacy Consult 1 each 03/29/20 19:26 Consult Rx Perform Med Rec MISCELLANE ONCE PRN Consult order Sertraline HCl 50 mg 03/30/20 09:00 04/03/20 08:46 Sertraline Hcl 50 Mg Tablet PO 50 mg DAILY LINDSAY Administration Sodium Chloride 3 ml 03/30/20 00:00 04/03/20 08:59 0.9 % Sodium Chloride Flush 3 Ml Syringe IVFLUSH 3 ml QSHIFT LINDSAY Administration Tramadol HCl 50 mg 03/30/20 07:25 04/01/20 15:35 Tramadol Hcl 50 Mg Tablet PO 50 mg Q6H PRN Administration Pain Time Spent With Patient Time: Total time spent is greater than 50% in coordination of care (as documented) at patient's floor/unit and/or counseling patient: Time with patient: less than 15 minutes
[2020-04-03] MEDS: Acetaminophen 325 MG TABLET 650 MG PO (11:53)
[2020-04-03] MEDS: Furosemide 20 MG TABLET PO (11:53)
--- NOTE | 2020-04-03 12:09 | P.PNIM_ITS ---
Subjective Subjective Date of Service: 04/04/20 Interval History: CHF exacerbation, Review of Systems Patient shortness of breath seems to be improving, denies any chest pain or abdominal pain or cough or phlegm Physical Exam Vital Signs: Vital Signs: Last Vital Signs Temp 96.8 F 04/03/20 12:03 Pulse 65 04/03/20 12:03 Resp 15 04/03/20 12:03 BP 114/63 04/03/20 12:03 Pulse Ox 93 04/03/20 12:03 Body Mass Index 20.9 Physical exam: Constitutional: Not in acute distress Cvs: rrr, [id number] , no murmur res: fair air entry , seems slightly diminshed at bases ,no rhonchii or wheezing abd: no rebound or guarding ,nt, bs present. ext pulses present , no cyanosis neuro: axo3 , nonfocal. Objective Data Current Medications Generic Name Dose Route Start Last Admin Trade Name Freq PRN Reason Stop Dose Admin Acetaminophen 650 mg 03/29/20 18:25 04/03/20 11:53 Acetaminophen 325 Mg Tablet PO 650 mg Q6H PRN Administration Pain, Mild (Pain Scale 1-3) Amlodipine Besylate 2.5 mg 04/03/20 09:00 04/03/20 08:55 Amlodipine Besylate 2.5 Mg Tablet PO 2.5 mg DAILY LINDSAY Administration Protocol Apixaban 2.5 mg 03/29/20 21:00 04/03/20 08:47 Apixaban 2.5 Mg Tablet PO 2.5 mg BID LINDSAY Administration Atorvastatin Calcium 80 mg 03/29/20 21:00 04/02/20 21:13 Atorvastatin Calcium 80 Mg Tablet PO 80 mg DAILY@2100 LINDSAY Administration Digoxin 0.125 mg 03/30/20 09:00 04/03/20 08:46 Digoxin 0.125 Mg Tablet PO 0.125 mg DAILY LINDSAY Administration Gabapentin 300 mg 03/30/20 09:00 04/03/20 08:58 Gabapentin 300 Mg Capsule PO 300 mg TID LINDSAY Administration Lidocaine 1 patch 03/30/20 09:00 04/03/20 08:51 Lidocaine 4 % Patch Adh..Patch TRANSDERMA 1 patch DAILY LINDSAY Administration Protocol Lisinopril 10 mg 03/30/20 09:00 04/03/20 08:44 Lisinopril 10 Mg Tablet PO 10 mg DAILY LINDSAY Administration Protocol Metoprolol Succinate 50 mg 03/30/20 09:00 04/03/20 08:45 Metoprolol Succinate Er 50 Mg Tab.Er.24h PO 50 mg DAILY LINDSAY Administration Protocol Metoprolol Tartrate 50 mg 04/03/20 11:59 Metoprolol Tartrate 50 Mg Tablet PO 04/03/20 12:00 ONCE ONE Protocol Omeprazole 20 mg 03/30/20 09:00 04/03/20 09:02 Omeprazole 20 Mg Capsule.Dr PO 20 mg DAILY LINDSAY Administration Ondansetron HCl 4 mg 03/30/20 09:52 04/03/20 08:42 Ondansetron Hcl 4 Mg/2 Ml Vial IVPUSH 4 mg Q4H PRN Administration nausea/vomiting Pharmacy Consult 1 each 03/29/20 19:26 Consult Rx Perform Med Rec MISCELLANE ONCE PRN Consult order Sertraline HCl 50 mg 03/30/20 09:00 04/03/20 08:46 Sertraline Hcl 50 Mg Tablet PO 50 mg DAILY LINDSAY Administration Sodium Chloride 3 ml 03/30/20 00:00 04/03/20 08:59 0.9 % Sodium Chloride Flush 3 Ml Syringe IVFLUSH 3 ml QSHIFT LINDSAY Administration Tramadol HCl 50 mg 03/30/20 07:25 04/01/20 15:35 Tramadol Hcl 50 Mg Tablet PO 50 mg Q6H PRN Administration Pain Labs CBC & Chem 7: 03/29/20 16:32 04/02/20 05:49 Assessment and Plan (1) Acute diastolic heart failure: Status: Acute (2) CHF exacerbation: Status: Acute Assessment and Plan: 79yo F with recently diagnosed AF, recent traumatic rib fractures with hemopneumothorax admitted to [facility] trauma service admitted with CHF exacerbation and pleural effusions 1. acute/chronic HFpEF exacerbation monitor I/O + BMP/BNP/Mg Blood pressure still fluctuating but improving, continue metoprolol succinate , hold lisinopril Will hold off on Lasix because she seems more euvolemic. Cardio following garett : Probably multifactorial related to fluctuating blood pressure, medications/lisinopril/Lasix. improved . will add small dose lasix today 2. pleural effusions- likely related to recent hemothorax as well as CHF. diursese as above, repeat cxr -Moderate right-sided pleural effusion which is mildly decreased from prior. Small left pleural effusion is unchanged 3. AF- continue B-link + digoxin [check level] for rate control, started apixaban 2.5 mg bid for anticoagulation. cardio following 4. chest pain- troponin flat. treat rib pain with lidocaine patch. pt also on tramadol. Incentive Abdoul, chest physio 5. HTN- blood pressure boderline -continue metoprolol , hold lisionpril + amlodipine 6.GERD- continue PPI 7. depression- continue sertraline.
[2020-04-03] MEDS: Atorvastatin Calcium 80 MG TABLET PO (21:25)
[2020-04-04] VITALS (7 sets, daily range): BP systolic 110–170; BP diastolic 60–82; PULSE 73–101; RESP 15–18; TEMP 36.2–36.6; O2SAT 90–94
--- NOTE | 2020-04-04 04:48 | PC.NURSE ---
At approx, 0445 pt had a run of 3 PVC's, followed by two normal beats then another PVC. PT asymptomatic.
[2020-04-04] MEDS: Gabapentin 300 MG CAPSULE PO ×3 (09:24→21:26)
[2020-04-04] MEDS: Sertraline HCL 50 MG TABLET PO (09:24)
[2020-04-04] MEDS: Omeprazole 20 MG CAPSULE.DR PO (09:24)
[2020-04-04] MEDS: Apixaban 2.5 MG TABLET PO ×2 (09:24→21:26)
[2020-04-04] MEDS: 0.9 % Sodium Chloride Flush 3 ML SYRINGE IVFLUSH ×4 (09:25→21:46)
[2020-04-04] MEDS: Metoprolol Succinate ER 50 MG TAB.ER.24H 100 MG PO (09:27)
[2020-04-04] MEDS: Lidocaine 4 % Patch ADH..PATCH 1 PATCH TRANSDERMA (09:28)
[2020-04-04] MEDS: Digoxin 0.125 MG TABLET PO (09:28)
--- NOTE | 2020-04-04 10:39 | P.PNCA_ITS ---
Subjective Subjective Date of Service: 04/04/20 Interval history: She states that she is feeling okay. Beginning to ambulate. No angina or shortness of breath or palpitations. Review of Systems Review of Systems Yes all other systems are reviewed and are negative Cardiovascular: Reports as per HPI, Reports no additional cardiovascular complaints, Denies acrocyanosis, Denies cool extremities, Denies painful fingertips, Denies chest pain, Denies chest pain at rest, Denies diaphoresis, Denies syncope, Denies irregular heart rhythm, Denies claudication, Denies leg edema, Denies lightheadedness, Denies palpitations and Denies dyspnea Respiratory: Denies dyspnea Denies syncope Endocrine: Denies palpitations Physical Exam Vital Signs: Last Vital Signs Temp 97.8 F 04/04/20 07:29 Pulse 101 H 04/04/20 07:29 Resp 15 04/04/20 07:29 BP 125/60 04/04/20 07:29 Pulse Ox 90 L 04/04/20 07:29 Body Mass Index 20.9 Const General: cooperative, comfortable and no acute distress Orientation/consciousness: patient oriented x3 HENMT Other: Unremarkable Neck Neck: Yes normal visual inspection Chest Chest palpation & inspection: normal inspection of the chest Resp Auscultation: no crackles, no wheezes and diminished lung sounds on the right Cardio Jugular venous distension: no JVD Palpation: normal PMI Heart sounds: S1 normal heart sound present, S2 normal heart sound present, no gallops, no murmurs and no rubs GI Palpation (GI): Soft to palpation Back/Spine/Pelvis Other: unremarkable Skin General skin exam: no rashes or lesions noted Neuro General: patient oriented x3 Extrem General: Yes no clubbing, cyanosis or edema Psych Mental Status: mental status grossly normal Results Labs and Meds Result diagrams: 03/29/20 16:32 04/02/20 05:49 Progress Note: A&P Assessment and plan (1) Atrial fibrillation with rapid ventricular response: Status: Acute (2) Acute diastolic heart failure: Status: Acute (3) Uncontrolled hypertension: Status: Acute Assessment and Plan: Not entirely clear if the effusions are related to heart failure or to the rib fractures (or both). Clinically, she does not appear to be volume overloaded at this time but may need low dose diuretic on discharge. Otherwise continue her rate control meds-beta blockers and digoxin. Back on anticoagulation. Blood pressure as much as 212/102 mmHg initially, but much improved and actually very labile and has gone as low 80s. Today's blood pressure seems reasonable. On higher dose of beta-blockers which should also help her atrial fibrillation. Otherwise, we will arrange follow-up in our office post discharge. Fall Risk Details Current Medications: Current Medications Generic Name Dose Route Start Last Admin Trade Name Freq PRN Reason Stop Dose Admin Acetaminophen 650 mg 03/29/20 18:25 04/03/20 11:53 Acetaminophen 325 Mg Tablet PO 650 mg Q6H PRN Administration Pain, Mild (Pain Scale 1-3) Apixaban 2.5 mg 03/29/20 21:00 04/04/20 09:24 Apixaban 2.5 Mg Tablet PO 2.5 mg BID LINDSAY Administration Atorvastatin Calcium 80 mg 03/29/20 21:00 04/03/20 21:25 Atorvastatin Calcium 80 Mg Tablet PO 80 mg DAILY@2100 LINDSAY Administration Digoxin 0.125 mg 03/30/20 09:00 04/04/20 09:28 Digoxin 0.125 Mg Tablet PO 0.125 mg DAILY LINDSAY Administration Gabapentin 300 mg 03/30/20 09:00 04/04/20 09:24 Gabapentin 300 Mg Capsule PO 300 mg TID LINDSAY Administration Lidocaine 1 patch 03/30/20 09:00 04/04/20 09:28 Lidocaine 4 % Patch Adh..Patch TRANSDERMA 1 patch DAILY LINDSAY Administration Protocol Lisinopril 10 mg 03/30/20 09:00 04/04/20 08:41 Lisinopril 10 Mg Tablet PO Not Given DAILY [facility] Protocol Metoprolol Succinate 100 mg 04/04/20 09:00 04/04/20 09:27 Metoprolol Succinate Er 50 Mg Tab.Er.24h PO 100 mg DAILY LINDSAY Administration Protocol Omeprazole 20 mg 03/30/20 09:00 04/04/20 09:24 Omeprazole 20 Mg Capsule.Dr PO 20 mg DAILY LINDSAY Administration Ondansetron HCl 4 mg 03/30/20 09:52 04/03/20 08:42 Ondansetron Hcl 4 Mg/2 Ml Vial IVPUSH 4 mg Q4H PRN Administration nausea/vomiting Pharmacy Consult 1 each 03/29/20 19:26 Consult Rx Perform Med Rec MISCELLANE ONCE PRN Consult order Sertraline HCl 50 mg 03/30/20 09:00 04/04/20 09:24 Sertraline Hcl 50 Mg Tablet PO 50 mg DAILY LINDSAY Administration Sodium Chloride 3 ml 03/30/20 00:00 04/04/20 09:25 0.9 % Sodium Chloride Flush 3 Ml Syringe IVFLUSH 3 ml QSHIFT LINDSAY Administration Tramadol HCl 50 mg 04/04/20 07:25 Tramadol Hcl 50 Mg Tablet PO Q6H PRN Pain Time Spent With Patient Time: Total time spent is greater than 50% in coordination of care (as documented) at patient's floor/unit and/or counseling patient: Time with patient: less than 15 minutes
--- NOTE | 2020-04-04 11:03 | MHC.CM.PN ---
IMM 04/04/20 Female DX CHF. DC TODAY with [facility], Family transport.
--- NOTE | 2020-04-04 17:08 | HO.PM.IMPN ---
Subjective Subjective Date of Service: 04/05/20 Interval History: diarrahe Review of Systems Patient has diarrhea as per the staff going for frequently Denies any fever or abdominal pain or chest pain or shortness of breath, weakness or numbness Physical Exam Vital Signs: Vital Signs: Last Vital Signs Temp 97.4 F 04/04/20 16:00 Pulse 75 04/04/20 16:00 Resp 16 04/04/20 16:00 BP 119/63 04/04/20 16:00 Pulse Ox 94 04/04/20 16:00 Body Mass Index 20.9 Constitutional: Not in acute distress Cvs: rrr, [id number] , no murmur res: fair air entry , seems slightly diminshed at bases ,no rhonchii or wheezing abd: no rebound or guarding ,nt, bs present. ext pulses present , no cyanosis neuro: axo3 , nonfocal. Objective Data Current Medications Generic Name Dose Route Start Last Admin Trade Name Freq PRN Reason Stop Dose Admin Acetaminophen 650 mg 03/29/20 18:25 04/03/20 11:53 Acetaminophen 325 Mg Tablet PO 650 mg Q6H PRN Administration Pain, Mild (Pain Scale 1-3) Apixaban 2.5 mg 03/29/20 21:00 04/04/20 09:24 Apixaban 2.5 Mg Tablet PO 2.5 mg BID LINDSAY Administration Atorvastatin Calcium 80 mg 03/29/20 21:00 04/03/20 21:25 Atorvastatin Calcium 80 Mg Tablet PO 80 mg DAILY@2100 LINDSAY Administration Digoxin 0.125 mg 03/30/20 09:00 04/04/20 09:28 Digoxin 0.125 Mg Tablet PO 0.125 mg DAILY LINDSAY Administration Gabapentin 300 mg 03/30/20 09:00 04/04/20 14:06 Gabapentin 300 Mg Capsule PO 300 mg TID LINDSAY Administration Lidocaine 1 patch 03/30/20 09:00 04/04/20 09:28 Lidocaine 4 % Patch Adh..Patch TRANSDERMA 1 patch DAILY LINDSAY Administration Protocol Lisinopril 10 mg 03/30/20 09:00 04/04/20 08:41 Lisinopril 10 Mg Tablet PO Not Given DAILY LINDSAY Protocol Metoprolol Succinate 100 mg 04/04/20 09:00 04/04/20 09:27 Metoprolol Succinate Er 50 Mg Tab.Er.24h PO 100 mg DAILY LINDSAY Administration Protocol Omeprazole 20 mg 03/30/20 09:00 04/04/20 09:24 Omeprazole 20 Mg Capsule.Dr PO 20 mg DAILY LINDSAY Administration Ondansetron HCl 4 mg 03/30/20 09:52 04/03/20 08:42 Ondansetron Hcl 4 Mg/2 Ml Vial IVPUSH 4 mg Q4H PRN Administration nausea/vomiting Pharmacy Consult 1 each 03/29/20 19:26 Consult Rx Perform Med Rec MISCELLANE ONCE PRN Consult order Sertraline HCl 50 mg 03/30/20 09:00 04/04/20 09:24 Sertraline Hcl 50 Mg Tablet PO 50 mg DAILY LINDSAY Administration Sodium Chloride 3 ml 03/30/20 00:00 04/04/20 16:08 0.9 % Sodium Chloride Flush 3 Ml Syringe IVFLUSH 3 ml QSHIFT LINDSAY Administration Tramadol HCl 50 mg 04/04/20 07:25 Tramadol Hcl 50 Mg Tablet PO Q6H PRN Pain Labs CBC & Chem 7: 03/29/20 16:32 04/02/20 05:49 Assessment and Plan (1) Diarrhea: Status: Acute (2) Acute diastolic heart failure: Status: Acute (3) CHF exacerbation: Status: Acute Assessment and Plan: 79yo F with recently diagnosed AF, recent traumatic rib fractures with hemopneumothorax admitted to [facility] trauma service admitted with CHF exacerbation and pleural effusions 1. acute/chronic HFpEF exacerbation monitor I/O + BMP/BNP/Mg Blood pressure still fluctuating but improving, continue metoprolol succinate , hold lisinopril Will hold off on Lasix because she seems more euvolemic. Cardio following garett : Probably multifactorial related to fluctuating blood pressure, medications/lisinopril/Lasix. improved . will add small dose lasix today 2. pleural effusions- likely related to recent hemothorax as well as CHF. diursese as above, repeat cxr -Moderate right-sided pleural effusion which is mildly decreased from prior. Small left pleural effusion is unchanged 3. AF- continue B-link + digoxin [check level] for rate control, started apixaban 2.5 mg bid for anticoagulation. cardio following 4. chest pain- troponin flat. treat rib pain with lidocaine patch. pt also on tramadol. Incentive Abdoul, chest physio 5. HTN- blood pressure boderline -continue metoprolol , hold lisionpril + amlodipine 6.GERD- continue PPI 7. depression- continue sertraline. 8 diarrhea: frequent episodes as per staff, we will check C diff if negative will start Imodium
[2020-04-04] MEDS: Atorvastatin Calcium 80 MG TABLET PO (21:26)
[2020-04-05 04:00] VITALS: BP 184/77; PULSE 94; RESP 18; TEMP 36.2; O2SAT 90
[2020-04-05 07:32] VITALS: BP 163/72; PULSE 95; RESP 20; TEMP 36.6; O2SAT 93
[2020-04-05] MEDS: Lidocaine 4 % Patch ADH..PATCH 1 PATCH TRANSDERMA (08:59)
[2020-04-05] MEDS: Omeprazole 20 MG CAPSULE.DR PO (08:59)
[2020-04-05] MEDS: Metoprolol Succinate ER 50 MG TAB.ER.24H 100 MG PO (08:59)
[2020-04-05] MEDS: Apixaban 2.5 MG TABLET PO (08:59)
[2020-04-05] MEDS: Gabapentin 300 MG CAPSULE PO (09:00)
[2020-04-05] MEDS: Digoxin 0.125 MG TABLET PO (09:00)
[2020-04-05] MEDS: Sertraline HCL 50 MG TABLET PO (09:00)
--- NOTE | 2020-04-05 09:27 | MHC.CM.PN ---
DC was cancelled yesterday 04/04/20. Due to loose stool Stool spec sent for C-DIFF Results are pending. CM will follow.
[2020-04-05 09:31] LABS: CDIFF Ag Negative (Negative); CDIFF Internal ctrl Dots and bkg OK (V); CDiff Toxin Negative (Negative)
[2020-04-05 11:10] VITALS: BMI 20.9
--- NOTE | 2020-04-05 11:13 | MHC.CLN ---
RE: CONSULT PT'S PO INTAKE 75% AVG PT REPORTS APPETITE IS SO-SO PT RECEPTIVE TO DRINKING ENSURE SHAKES AND HAS THESE AT HOME WELL DIET RX: 2GM NA-APPROPRIATE SEE TEACHING RECORD FOR DIET EDUCATION NOTED FRAGILE SKIN WILL START ENSURE BID SEE ALSO CLINICAL NUTRITION ASSESSMENT
--- NOTE | 2020-04-05 11:35 | MHC.CM.PN ---
DC today Female 79 DX CHF. DP to home with resumption of [facility]. providing transportation. [facility] notified of DC DC info sent. C-DIFF negative.
[2020-04-05 11:44] VITALS: BP 140/94; PULSE 77; RESP 20; TEMP 36.7; O2SAT 93
--- NOTE | 2020-04-05 12:10 | PM.DS ---
DS: Providers Provider Date of Service: 04/15/20 Date of admission: 03/29/20 18:27 Primary care physician: Unknown Physician Consults: 03/29/20 18:25 Consult to Cardiology Routine Consulting Provider: [facility] Cardiovascular Services Reason for consultation: CHF Has provider been notified: Yes DS: Diagnosis Discharge Diagnosis (1) Diarrhea: Status: Acute (2) Acute diastolic heart failure: Status: Acute (3) CHF exacerbation: Status: Acute (4) NATE (acute kidney injury): Status: Acute DS: Medications Discharge Medications Home Medications: Home Medications Medication Instructions Recorded Confirmed alendronate 1 tab PO DAILY 02/26/20 03/29/20 omeprazole 1 cap PO DAILY 02/26/20 03/29/20 sertraline [Zoloft] 50 mg PO DAILY 02/26/20 03/29/20 amlodipine 10 mg tablet 10 mg PO DAILY 03/16/20 03/29/20 gabapentin 300 mg capsule 300 mg PO TID 03/16/20 03/29/20 lisinopril 10 mg tablet 10 mg PO DAILY 03/16/20 03/29/20 tramadol 50 mg tablet 50 mg PO Q6H PRN 03/16/20 03/29/20 apixaban [Eliquis] 1 tab PO BID 03/29/20 03/29/20 Previous Rx's Medication Instructions Recorded digoxin 125 mcg (0.125 mg) tablet 125 mcg PO DAILY #30 tab 03/31/20 metoprolol tartrate 100 mg tablet 100 mg PO BID 30 Days #60 tab 03/31/20 furosemide [Lasix] 20 mg PO QAM #30 tab 04/05/20 lidocaine [Lidocaine Pain Relief] 1 patch TRANSDERMAL DAILY #7 ea 04/05/20 DS: Summary Hospital Course Hospital Course: 79yo F with HTN + AF presenting to ED with c/o L-sided chest pain that she noticed while going to the bathroom at 0200 along with worsening dyspnea for the past month. Seen by DEBORAA, who sent her to the ED. Pain is moderate, L-sided, non-exertional, non-radiating, sharp in quality. She endorses worsening dyspnea over the last month, worsened by exertion. Last night she developed 2-pillow orthopnea. She also noticed some swelling in her legs, which is new for her. Recent history notable for AF diagnosed on admission for after intentinoal overdose 02/25-02/29/20. TTE 02/27/20 showed low-normal LVEF 50-55%, mildly decreased RVEF, mild aortic regurgitation, and indeterminate diastolic function. She was discharged home, became unsteady and possibly syncopized, then fell. She returned to the [facility] ED and was transferred to [facility] after she was found to have R-sided rib fractures (7th-12th) with a small hemopneumothorax. She was discharged after 1 week and did not require tube thoracostomy. TTE 03/04/20 showed normal EF, no RWMA, severely dilated LA, mild LVH, dilated RA, trivial pericardial effusion. She followed up with [facility] Cardiology 03/16/20. Unsure if she is on an anticoagulant. She states the L-sided chest pain is distinct from her rib pain on the R side of her chest. Hospital course: 79yo F with recently diagnosed AF, recent traumatic rib fractures with hemopneumothorax admitted to [facility] trauma service admitted with CHF exacerbation and pleural effusions 1. acute/chronic HFpEF exacerbation: troponin flat Patient was initially admitted for acute on chronic diastolic heart failure component: Subsequently started on IV Lasix and diuresed well but hospital course complicated by NATE so Lasix was put on hold for 2 days and her renal function improved as well as her shortness of breath is significantly improved ,seems euvolemic now: going home lasix . pleural effusion probable related to rib fracture, currently asymptomatic. Please monitor BMP and electrolytes outpatient with PCP and further management outpatient as per PCP. CHF education given. 2. pleural effusions- likely related to recent hemothorax as well as CHF. diursese as above, repeat cxr -Moderate right-sided pleural effusion which is mildly decreased from prior. Small left pleural effusion is unchanged 3. AF- continue B-link + digoxin [check level] for rate control, apixaban 2.5 mg bid for anticoagulation. 4. rib pain with lidocaine patch, continue Incentive Abdoul. Above management discussed with the patient in detail length she understand and in agreement with the above plan, time spent 50 minutes and 50% time spent on counseling. Significant findings: As above. Procedures performed: None. Treatment and response: As above. Complications: None. Time Spent with Patient Time attestation: Total time spent providing and/or coordinating discharge services: Discharge coordination time: Greater than 30 minutes Physical Exam Vital Signs: Vital Signs: Last Vital Signs Temp 98.0 F 04/05/20 11:44 Pulse 77 04/05/20 11:44 Resp 20 04/05/20 11:44 BP 140/94 H 04/05/20 11:44 Pulse Ox 93 04/05/20 11:44 Body Mass Index 20.9 Constitutional: Not in acute distress HEENT: Neck supple Eyes anicteric, no discharge. Cvs: rrr, [id number] , no murmur res: fair air entry ,no rhonchii or wheezing abd: no rebound or guarding ,nt, bs present. ext pulses present , no cyanosis neuro: axo3 , nonfocal. DS: Data Data Completed and Pending Labs on day of discharge: Laboratory Tests 03/29/20 03/29/20 03/29/20 16:32 16:33 16:33 WBC 7.8 RBC 4.30 Hgb 13.0 Hct 39.1 MCV 90.9 MCH 30.2 MCHC 33.2 RDW 15.4 Plt Count 255 MPV 11.9 Immature Gran % (Auto) 0.3 Neut % (Auto) 75.0 H Lymph % (Auto) 18.1 L [place] % (Auto) 4.9 Eos % (Auto) 1.3 Baso % (Auto) 0.4 Lymph # (Auto) 1.4 [place] # (Auto) 0.4 Eos # (Auto) 0.1 Baso # (Auto) 0.0 Abs Immat Gran (auto) 0.02 Absolute Neuts (auto) 5.8 Absolute Nucleated RBC 0.000 Nucleated RBC % (auto) 0.0 PT 13.2 H INR 1.1 D-Dimer 663 Sodium 140 Potassium 4.0 Chloride 104 Carbon Dioxide 24 Anion Gap 16 BUN 8 L D Creatinine 0.63 Estim Creat Clear Calc 66.2 Estimated GFR > 60 Random Glucose 107 D Fasting Glucose Calcium 9.0 Magnesium Total Bilirubin 0.5 Direct Bilirubin < 0.2 AST 33 H ALT 20 Alkaline Phosphatase 126 H D Troponin I High Sens B-Natriuretic Peptide Total Protein 7.1 Albumin 3.8 Digoxin C. difficile Toxin A&B C. difficile Antigen C. difficile Interpret Coronavirus (PCR) Influenza Type A (PCR) Influenza Type B (PCR) RSV RNA Qual (PCR) 03/29/20 03/29/20 03/29/20 16:33 16:33 22:28 WBC RBC Hgb Hct MCV MCH MCHC RDW Plt Count MPV Immature Gran % (Auto) Neut % (Auto) Lymph % (Auto) [place] % (Auto) Eos % (Auto) Baso % (Auto) Lymph # (Auto) [place] # (Auto) Eos # (Auto) Baso # (Auto) Abs Immat Gran (auto) Absolute Neuts (auto) Absolute Nucleated RBC Nucleated RBC % (auto) PT INR D-Dimer Sodium Potassium Chloride Carbon Dioxide Anion Gap BUN Creatinine Estim Creat Clear Calc Estimated GFR Random Glucose Fasting Glucose Calcium Magnesium Total Bilirubin Direct Bilirubin AST ALT Alkaline Phosphatase Troponin I High Sens 23.5 H 25.6 H B-Natriuretic Peptide 549 H Total Protein Albumin Digoxin C. difficile Toxin A&B C. difficile Antigen C. difficile Interpret Coronavirus (PCR) NEGATIVE Influenza Type A (PCR) NEGATIVE Influenza Type B (PCR) NEGATIVE RSV RNA Qual (PCR) NEGATIVE 03/30/20 03/30/20 03/31/20 09:33 09:33 05:54 WBC RBC Hgb Hct MCV MCH MCHC RDW Plt Count MPV Immature Gran % (Auto) Neut % (Auto) Lymph % (Auto) [place] % (Auto) Eos % (Auto) Baso % (Auto) Lymph # (Auto) [place] # (Auto) Eos # (Auto) Baso # (Auto) Abs Immat Gran (auto) Absolute Neuts (auto) Absolute Nucleated RBC Nucleated RBC % (auto) PT INR D-Dimer Sodium 140 141 Potassium 3.1 L D 3.9 D Chloride 100 101 Carbon Dioxide 27 27 Anion Gap 16 17 BUN 11 21 H D Creatinine 0.85 1.35 Estim Creat Clear Calc 49.1 30.9 Estimated GFR > 60 38 Random Glucose 160 H D 98 D Fasting Glucose Calcium 9.1 8.6 Magnesium 1.9 2.2 Total Bilirubin Direct Bilirubin AST ALT Alkaline Phosphatase Troponin I High Sens B-Natriuretic Peptide 384 H Total Protein Albumin Digoxin C. difficile Toxin A&B C. difficile Antigen C. difficile Interpret Coronavirus (PCR) Influenza Type A (PCR) Influenza Type B (PCR) RSV RNA Qual (PCR) 03/31/20 03/31/20 03/31/20 05:54 05:55 10:10 WBC RBC Hgb Hct MCV MCH MCHC RDW Plt Count MPV Immature Gran % (Auto) Neut % (Auto) Lymph % (Auto) [place] % (Auto) Eos % (Auto) Baso % (Auto) Lymph # (Auto) [place] # (Auto) Eos # (Auto) Baso # (Auto) Abs Immat Gran (auto) Absolute Neuts (auto) Absolute Nucleated RBC Nucleated RBC % (auto) PT INR D-Dimer Sodium 140 Potassium 4.3 Chloride 100 Carbon Dioxide 27 Anion Gap 17 BUN 25 H Creatinine 1.60 H Estim Creat Clear Calc 26.1 Estimated GFR 31 Random Glucose 119 H Fasting Glucose Calcium 9.1 Magnesium Total Bilirubin Direct Bilirubin AST ALT Alkaline Phosphatase Troponin I High Sens B-Natriuretic Peptide 111 H Total Protein Albumin Digoxin 1.1 C. difficile Toxin A&B C. difficile Antigen C. difficile Interpret Coronavirus (PCR) Influenza Type A (PCR) Influenza Type B (PCR) RSV RNA Qual (PCR) 04/01/20 04/02/20 04/05/20 08:55 05:49 07:30 WBC RBC Hgb Hct MCV MCH MCHC RDW Plt Count MPV Immature Gran % (Auto) Neut % (Auto) Lymph % (Auto) [place] % (Auto) Eos % (Auto) Baso % (Auto) Lymph # (Auto) [place] # (Auto) Eos # (Auto) Baso # (Auto) Abs Immat Gran (auto) Absolute Neuts (auto) Absolute Nucleated RBC Nucleated RBC % (auto) PT INR D-Dimer Sodium 136 136 Potassium 3.5 4.0 Chloride 98 97 Carbon Dioxide 28 27 Anion Gap 14 16 BUN 29 H 34 H Creatinine 1.07 0.97 Estim Creat Clear Calc 39.0 43.0 Estimated GFR 49 55 Random Glucose 172 H D Fasting Glucose 115 H Calcium 8.8 8.9 Magnesium Total Bilirubin Direct Bilirubin AST ALT Alkaline Phosphatase Troponin I High Sens B-Natriuretic Peptide Total Protein Albumin Digoxin C. difficile Toxin A&B Negative C. difficile Antigen Negative C. difficile Interpret SEE NOTE Coronavirus (PCR) Influenza Type A (PCR) Influenza Type B (PCR) RSV RNA Qual (PCR) Discharge Plan Discharge Patient Disposition: Home Health Service Referrals: [facility] [Outside] Kam Reynaga MD [Physician] - (follow up in 2 weeks) Lazara Oneill MD [Physician] - 1 Week (Nurse will call you to book a follow up appointment.) Discharge Medications: New furosemide [Lasix] 20 mg tablet 20 mg PO QAM Qty: 30 RF: 0 lidocaine [Lidocaine Pain Relief] 4 % Adhesive Patch,Medicated 1 patch transdermal DAILY Qty: 7 RF: 0 Continued digoxin 125 mcg (0.125 mg) tablet 125 mcg PO DAILY Qty: 30 RF: 5 metoprolol tartrate 100 mg tablet 100 mg PO BID 30 Days Qty: 60 RF: 5 alendronate 10 mg tablet 1 tab PO DAILY RF: 0 sertraline [Zoloft] 25 mg tablet 50 mg PO DAILY RF: 0 omeprazole 20 mg capsule,delayed release(DR/EC) 1 cap PO DAILY RF: 0 Eliquis 2.5 mg tablet 1 tab PO BID RF: 0 lisinopril 10 mg tablet 10 mg PO DAILY RF: 0 amlodipine 10 mg tablet 10 mg PO DAILY RF: 0 gabapentin 300 mg capsule 300 mg PO TID RF: 0 tramadol 50 mg tablet 50 mg PO Q6H PRN (Reason: Pain) RF: 0 Discharge Orders: Discharge Order (Routine); Ordered 04/05/20 Ordered By: Lois Singleton Diet: advance to usual diet, low fat, low cholesterol and low salt diet Activity on Discharge: As tolerated Stand Alone Forms: Patient Portal Discharge page Other Ambulatory Orders: Basic Metabolic Panel Fasting (Routine) Timeframe: 3 Days Facility: [facility] - Location: Laboratory Ordered By: Lois Singleton Care Plan Goals: Patient was initially admitted for acute on chronic diastolic heart failure component: Subsequently started on IV Lasix and diuresed well but hospital course complicated by NATE so Lasix was put on hold for 2 days and her renal function improved as well as her shortness of breath is significantly improved ,seems euvolemic now: going home lasix . pleural effusion probable related to rib fracture, currently asymptomatic. Please monitor BMP and electrolytes outpatient with PCP and further management outpatient as per PCP. Discuss the patient that she has heart failure which is treated well with Lasix diuretics-her breathing is improved, she needs to follow-up her electrolytes and renal function closely with PCP and also she needs to follow up outpatient with heart doctor. Health Concerns: As above. Plan of Treatment: As above. Discharge Date/Time: 04/05/20 13:52
== END 2020-04-05 13:52 | disposition home health service (06) | DRG 292 ==
LOC: HO.ED 17:40 → HO.EDOVER 03-30 09:10 → HO.IMC 03-30 10:38
PROVIDERS: Admitting Provider Family Medicine; Emergency Provider Emergency Medicine; PCP Internal Medicine; Visit Provider Internal Medicine
DX: I11.0 Hypertensive heart disease with heart failure (principal); S22.41XA Multiple fractures of ribs, right side, initial encounter for closed fracture; N17.9 Acute kidney failure, unspecified; F41.9 Anxiety disorder, unspecified; I50.33 Acute on chronic diastolic (congestive) heart failure; K21.9 Gastro-esophageal reflux disease without esophagitis; F32.9 Major depressive disorder, single episode, unspecified; I48.91 Unspecified atrial fibrillation; X58.XXXA Exposure to other specified factors, initial encounter; Y93.9 Activity, unspecified; Y92.9 Unspecified place or not applicable; Y99.9 Unspecified external cause status; Z20.822 Contact with and (suspected) exposure to COVID-19; Z79.01 Long term (current) use of anticoagulants; Z79.891 Long term (current) use of opiate analgesic; Z79.899 Other long term (current) drug therapy
CPT/HCPCS: 0241U; 36415; 71045; 80048; 80076; 80162; 83735; 83880; 84484; 85025; 85379; 85610; 87324; 87449; 93005; 99285; J1940; J2270; J2405

== ENCOUNTER → 2020-04-18 10:09 | Outpatient (REF) | payer MEDICARE, OTHER, SELFPAY ==
--- NOTE | 2020-04-18 13:50 | ECG_ITS ---
Hook-up date: 2020-04-18 11:48:00 Duration: 27:50:00 Test Indications: PAF Medications: 37624 QRS complexes 662 Ventricular ectopics which represent <1 % of total QRS comp. * Supraventricular ectopics which represent % of total QRS comp. * Paced QRS complexs which represent % of total QRS comp. VENTRICULAR ECTOPY 630 Isolated 0 Bigeminal Cycles 16 Couplets 0 Runs 0 Beats in Runs * Beats LONGEST at * BPM at :: -- * Beats FASTEST at * BPM at :: -- SUPRAVENTRICULAR ECTOPY * Isolated * Couplets * Runs * Beats in Runs * Beats LONGEST at * BPM at :: -- * Beats FASTEST at * BPM at :: -- HEART RATES 42 MIN at 01:17:01 2020-04-19 70 AVG 120 MAX at 21:00:47 2020-04-18 LONGEST RR 2.6400 secs at 05:41:24 2020-04-19 S-T LEVELS Channel 1 - 128 mm at 11:48:00 2020-04-18 - 128 mm at 11:48:00 2020-04-18 Channel 2 - 128 mm at 11:48:00 2020-04-18 - 128 mm at 11:48:00 2020-04-18 Channel 3 - 128 mm at 03:10:71 -- - 128 mm at 03:10:71 Basic rhythm Atrial fibrillation No long pause or profound bradycardia Occasional Premature ventricular complexes No diary submitted Referred By: Kam Reynaga Overread By: ADRIANA MARTÍNEZ MD
== END ==
LOC: HO.CARD 10:09
PROVIDERS: Visit Provider Internal Medicine
DX: I48.0 Paroxysmal atrial fibrillation (principal)
CPT/HCPCS: 93225; 93226

== ENCOUNTER → 2020-04-26 09:46 | Outpatient (BNVA) | payer MEDICARE, OTHER, SELFPAY | PROVIDERS: PCP Internal Medicine; Visit Provider Nurse Practitioner Family | DX: I48.91 Unspecified atrial fibrillation (principal); S22.39XA Fracture of one rib, unspecified side, initial encounter for closed fracture; I10 Essential (primary) hypertension; J94.2 Hemothorax; W19.XXXA Unspecified fall, initial encounter | CPT/HCPCS: 99212 ==

== ENCOUNTER 2020-06-20 03:13 | Emergency (ER) | payer MEDICARE, OTHER, SELFPAY ==
--- NOTE | ~2020-06-20 | XR_ITS ---
EXAMINATION: XR CHEST CLINICAL INFORMATION: Cough COMPARISON: 03/31/2020 TECHNIQUE: Frontal view of the chest was obtained. FINDINGS: Cardiac leads overlie the chest. The lungs are well expanded. No consolidation, edema, or effusion. No definite pneumothorax, although evaluation is limited by chest wall deformity. There are multiple right-sided rib fractures seen due to patient positioning, it is difficult to determine the number of the ribs that are fractured. Multiple bilateral fractures of the mid ribs are seen.. XR/XR chest 1V IMPRESSION: Multiple right lateral rib fractures are identified. Although no pneumothorax is visualized on this study, it is difficult to exclude given the deformity of the chest wall.
--- NOTE | ~2020-06-20 | CT_ITS ---
EXAMINATION: CT CHEST WITHOUT CONTRAST CLINICAL INFORMATION: Reassessment of right-sided rib fractures, possibly new. COMPARISON: Radiograph from earlier today. CT 03/01/2020 TECHNIQUE: Multidetector volumetric CT imaging of the chest was done. Axial MIP volume rendering provided. Sagittal and coronal reformatted images were obtained. This CT examination was performed using dose optimization techniques as appropriate, variously including the following: *Automated exposure control *Adjustment of mA and/or kV according to patient size (this includes techniques or standardized protocols for targeted exams where dose is matched to indication/reason for exam; i.e. extremities or head) *Use of iterative reconstruction technique DLP: 234 mGy-cm FINDINGS: LUNGS: The central airways are patent. Minimal bibasilar atelectasis. Biapical pleural thickening. No pneumothorax. No dense consolidation. MEDIASTINUM: Prominent heart. Coronary artery calcifications. No mediastinal lymphadenopathy. Unremarkable thyroid gland. PLEURA: No pleural effusion. AXILLA: No lymphadenopathy. UPPER ABDOMEN: No acute abnormality. Vascular calcifications are seen. OSSEOUS STRUCTURES: There are multiple healing right lateral rib fractures, as evidenced by the presence of callus formation. This corresponds to the appearance on the recent radiograph. These are not acute fractures, and were present on the study from 03/01/2020. Multiple right posterior rib fractures are also healing. Fractures of the posterior seventh, eighth, ninth, 10th, and 11th ribs remain offset. Vertebral body height and alignment is maintained. CT/CT chest wo con IMPRESSION: Multiple healing right-sided rib fractures, both laterally and posteriorly. These were present on the study from 03/01/2020 and are not acute. No acute pulmonary finding.
--- NOTE | ~2020-06-20 | CT_ITS ---
EXAMINATION: CT HEAD WITHOUT CONTRAST CLINICAL INFORMATION: Altered mental status COMPARISON: 02/29/2020 TECHNIQUE: Contiguous axial imaging was performed from the skull base to vertex without intravenous contrast. This CT examination was performed using dose optimization techniques as appropriate, variously including the following: * Automated exposure control * Adjustment of mA and/or kV according to patient size (this includes techniques or standardized protocols for targeted exams where dose is matched to indication/reason for exam; i.e. extremities or head) Use of iterative reconstruction technique DLP: 632 mGy-cm. FINDINGS: There is no evidence of acute intracranial hemorrhage or territorial infarction. No abnormal mass effect or midline shift is seen. Smith to white matter differentiation is well preserved. No extra-axial fluid collections are identified. No hydrocephalus. Proportional prominence of the ventricles and sulcal spaces is consistent with mild volume loss. Patchy periventricular and deep white matter hypoattenuation is consistent with mild small vessel ischemic changes. The osseous structures and soft tissues are normal. The mastoid air cells and visualized portions of the paranasal sinuses are well aerated. CT/CT head/brain wo con IMPRESSION: No acute intracranial pathology.
--- NOTE | 2020-06-20 03:16 | ECG_ITS ---
Test Reason : AMS Blood Pressure : / mmHG Vent. Rate : 094 BPM Atrial Rate : 441 BPM P-R Int : 000 ms QRS Dur : 098 ms QT Int : 392 ms P-R-T Axes : 000 -59 180 degrees QTc Int : 490 ms Atrial fibrillation Left axis deviation Incomplete right bundle branch block Anteroseptal infarct (cited on or before 29-MAR-2020) ST & T wave abnormality, consider lateral ischemia Abnormal ECG When compared with ECG of 29-MAR-2020 18:54, Questionable change in initial forces of Anterior leads Referred By: Maggie Stack Electronically Signed By:ADRIANA MARTÍNEZ MD
[2020-06-20 03:21] VITALS: BP 135/67; PULSE 92; RESP 16; TEMP 36.6; O2SAT 97; BMI 18.9
--- NOTE | 2020-06-20 03:21 | ED_ITS ---
HPI - General Adult General Chief complaint: Altered Mental Status Stated complaint: crisis Time Seen by Provider: 06/20/20 03:16 Source: patient and EMS Mode of arrival: EMS History of Present Illness HPI narrative: 79-year-old female brought in by EMS after she called them. When patient is asked what is bothering her she keeps repeating ?I do not know/I can not?. Patient denies any shortness of breath, chest pain/palpitations, GI sym ptoms, or symptoms. Unclear whether patient is a reliable historian at this point. EMS states that she was sitting outside of her house on a bench. Related Data Home Medications Medication Instructions Recorded Confirmed omeprazole 1 cap PO DAILY 02/26/20 04/26/20 sertraline [Zoloft] 50 mg PO DAILY 02/26/20 04/26/20 amlodipine 10 mg tablet 10 mg PO DAILY 03/16/20 04/26/20 gabapentin 300 mg capsule 300 mg PO TID 03/16/20 04/26/20 lisinopril 10 mg tablet 10 mg PO DAILY 03/16/20 04/26/20 Previous Rx's Medication Instructions Recorded metoprolol tartrate 100 mg tablet 100 mg PO BID 30 Days #60 tab 03/31/20 lidocaine [Lidocaine Pain Relief] 1 patch TRANSDERMAL DAILY #7 ea 04/05/20 digoxin 125 mcg (0.125 mg) tablet 125 mcg PO DAILY #90 tab 04/26/20 apixaban 2.5 mg tablet 2.5 mg PO BID 30 Days #60 tab 05/13/20 furosemide 20 mg tablet 20 mg PO QAM #90 tab 05/25/20 Allergies Allergy/AdvReac Type Severity Reaction Status Date / Time No Known Allergies Allergy Verified 02/26/20 14:17 Review of Systems Review of Systems: Pertinent positives and negatives as stated in HPI 10 point review of systems is otherwise negative. [facility] Past Medical History Source: nursing notes reviewed Medical History Anxiety Atrial fibrillation with controlled ventricular rate Depression GERD (gastroesophageal reflux disease) HTN (hypertension) Social History Social History Household Members: Spouse Housing: House Alcohol intake: never Smoking Status: Never smoker Second Hand Smoke Exposure: No Advance Directives: No Advance Directives Information Provided: No service: No Current occupational status: retired Physical Exam Vital Signs: Vital Signs: Last Vital Signs Temp 97.8 F 06/20/20 03:21 Pulse 92 06/20/20 03:21 Resp 16 06/20/20 03:21 BP 135/67 06/20/20 03:21 Pulse Ox 97 06/20/20 03:21 Body Mass Index 18.9 VITAL SIGNS: Reviewed. GENERAL: Well developed, well nourished, in no acute distress. HEAD: Normocephalic/atraumatic, EYES: PERRLA, EOMI intact without pain, no nystagmus/pallor/icterus noted EARS: Ext canals without abnormality, TMs non-bulging and non-erythematous NOSE: Nares patent bilateral OROPHARYNX: no oral lesions noted, posterior pharynx clear and non-erythematous without noted tonsillar enlargement/erythema/exudates NECK: Supple, no adenopathy LUNGS: Normal breath sounds. No adventitious sounds or accessory muscle use. SpO2<> CARDIOVASCULAR: Regular rate and rhythm without noted murmurs, no JVD or lower extremity edema. ABDOMEN: Soft, non-tender, non-distended with bowel sounds. No rigidity. No guarding. No palpable masses or hernias noted MUSCULOSKELETAL: No tenderness, deformities, or effusions noted on gross inspection. EXTREMITIES: No cyanosis, clubbing or edema. SKIN: Inspection of the skin reveals no rashes, ulcerations, jaundice, pallor, or petechiae. NEUROLOGIC: Alert and oriented x 4. Strength and sensation to light touch were grossly intact x 4. Course Course Course Narrative: 79-year-old female with history and clinical presentation consistent with dementia, delirium. Patient will be worked up to rule out del irium. Call the at home who states he knows that his is at the hospital and plans on coming in to see here with his daughter. Signed out to DR Aguilar with plan to f/u [facility] and then discharge to home with patoent's daughter. Reevaluation(s) Reevaluation #1: I spoke with patient's daughter, Katia, who confirms that patient was recently diagnosed with early onset dementia. She states that she will take her mother home as long as she is otherwise medically cleared, and reach out to the primary care provider to make further arrangements for additional assistance in the home. Time: 06:50 Medical Decision Making Lab Data Result diagrams: 06/20/20 03:58 06/20/20 03:58 Labs: Lab Results 06/20/20 06/20/20 06/20/20 Range/Units 03:46 03:58 03:58 WBC 10.8 (4.8-10.8) X10*3/uL RBC 5.07 (4.20-5.50) X10*6/uL Hgb 14.7 (12.0-16.0) g/dl Hct 44.5 (37-47) % MCV 87.8 (80-98) fL MCH 29.0 (27.0-33.0) pg MCHC 33.0 (31.0-35.0) g/dl RDW 13.4 (11.0-16.0) % Plt Count 312 (160-400) X10*3/uL MPV 11.3 (9.4-12.3) fL Immature Gran % (Auto) 0.5 H (0.0-0.4) % Neut % (Auto) 78.4 H (45-73) % Lymph % (Auto) 16.4 L (20-40) % [place] % (Auto) 4.0 (2-11) % Eos % (Auto) 0.2 (0-4) % Baso % (Auto) 0.5 (0-2) % Lymph # (Auto) 1.8 (1.2-4.9) X10*3/uL [place] # (Auto) 0.4 (0.1-1.2) X10*3/uL Eos # (Auto) 0.0 (0.0-0.4) X10*3/uL Baso # (Auto) 0.1 (0.0-0.2) X10*3/uL Abs Immat Gran (auto) 0.05 H (0.00-0.03) X10*3/uL Absolute Neuts (auto) 8.5 H (2.0-8.3) X10*3/uL Absolute Nucleated RBC 0.000 (0.0-0.012) X10*3/uL Nucleated RBC % (auto) 0.0 (0.0-0.2) /100WBC PT (10.8-13.0) SEC INR (0.9-1.1) Sodium 143 (135-145) mmol/L Potassium 3.4 (3.3-5.1) mmol/L Chloride 102 (96-108) mmol/L Carbon Dioxide 28 (22-29) mmol/L Anion Gap 16 (12-20) BUN 23 H (9-16) mg/dL Creatinine 1.09 (0.5-1.4) mg/dL Estim Creat Clear Calc 32.5 Estimated GFR 48 POC Glucose 167 H (60-115) mg/dL Random Glucose 164 H (60-115) mg/dL Lactic Acid (0.5-2.0) mmol/L Calcium 10.2 D (8.4-10.2) mg/dL Total Bilirubin 0.7 (0.0-1.0) mg/dL AST 20 (5-31) U/L ALT 15 (0-31) U/L Alkaline Phosphatase 81 D (39-117) U/L Total Protein 7.2 (6.5-8.0) g/dL Albumin 4.3 (3.5-5.0) g/dL COVID-19 ([facility]E) (Negative) COVID-19 Clin Com 06/20/20 06/20/20 06/20/20 Range/Units 03:58 03:59 03:59 WBC (4.8-10.8) X10*3/uL RBC (4.20-5.50) X10*6/uL Hgb (12.0-16.0) g/dl Hct (37-47) % MCV (80-98) fL MCH (27.0-33.0) pg MCHC (31.0-35.0) g/dl RDW (11.0-16.0) % Plt Count (160-400) X10*3/uL MPV (9.4-12.3) fL Immature Gran % (Auto) (0.0-0.4) % Neut % (Auto) (45-73) % Lymph % (Auto) (20-40) % [place] % (Auto) (2-11) % Eos % (Auto) (0-4) % Baso % (Auto) (0-2) % Lymph # (Auto) (1.2-4.9) X10*3/uL [place] # (Auto) (0.1-1.2) X10*3/uL Eos # (Auto) (0.0-0.4) X10*3/uL Baso # (Auto) (0.0-0.2) X10*3/uL Abs Immat Gran (auto) (0.00-0.03) X10*3/uL Absolute Neuts (auto) (2.0-8.3) X10*3/uL Absolute Nucleated RBC (0.0-0.012) X10*3/uL Nucleated RBC % (auto) (0.0-0.2) /100WBC PT 19.6 H D (10.8-13.0) SEC INR 1.6 H (0.9-1.1) Sodium (135-145) mmol/L Potassium (3.3-5.1) mmol/L Chloride (96-108) mmol/L Carbon Dioxide (22-29) mmol/L Anion Gap (12-20) BUN (9-16) mg/dL Creatinine (0.5-1.4) mg/dL Estim Creat Clear Calc Estimated GFR POC Glucose (60-115) mg/dL Random Glucose (60-115) mg/dL Lactic Acid 2.8 H* (0.5-2.0) mmol/L Calcium (8.4-10.2) mg/dL Total Bilirubin (0.0-1.0) mg/dL AST (5-31) U/L ALT (0-31) U/L Alkaline Phosphatase (39-117) U/L Total Protein (6.5-8.0) g/dL Albumin (3.5-5.0) g/dL COVID-19 ([facility]LEE) Negative (Negative) COVID-19 Clin Com See Note ECG Data Attestation: I personally reviewed and interpreted this ECG as follows: Prior ECG tracings: available for review (03/29/2020 no acute changes on comparison) Interpretation: Atrial fibrillation, HR -94, no acute evidence of ischemia, QRS/QTC within normal limits. Discharge Plan Discharge Clinical Impression: Dementia Prescriptions: No Action metoprolol tartrate 100 mg tablet 100 mg PO BID 30 Days Qty: 60 RF: 5 digoxin 125 mcg (0.125 mg) tablet 125 mcg PO DAILY Qty: 90 RF: 1 Eliquis 2.5 mg tablet 2.5 mg PO BID 30 Days Qty: 60 RF: 5 furosemide [Lasix] 20 mg tablet 20 mg PO QAM Qty: 90 RF: 1 sertraline [Zoloft] 25 mg tablet 50 mg PO DAILY RF: 0 omeprazole 20 mg capsule,delayed release(DR/EC) 1 cap PO DAILY RF: 0 lidocaine [Lidocaine Pain Relief] 4 % Adhesive Patch,Medicated 1 patch transdermal DAILY Qty: 7 RF: 0 lisinopril 10 mg tablet 10 mg PO DAILY RF: 0 amlodipine 10 mg tablet 10 mg PO DAILY RF: 0 gabapentin 300 mg capsule 300 mg PO TID RF: 0
[2020-06-20 04:06] LABS: Basophils Absolute Auto 0.1 X10*3/uL (0.0-0.2); Basophils Percent Auto 0.5 % (0-2); Eosinophils Percent Auto 0.2 % (0-4); Hematocrit 44.5 % (37-47); Hemoglobin 14.7 g/dl (12.0-16.0); Imm Gran Abs Auto 0.05 X10*3/uL (0.00-0.03); Imm Gran Pct Auto 0.5 % (0.0-0.4); Lymphocytes Absolute Auto 1.8 X10*3/uL (1.2-4.9); Lymphocytes Percent Auto 16.4 % (20-40); MANUAL DIFF FLAG NO; Mean Corpuscular Volume 87.8 fL (80-98); Mean Platelet Volume 11.3 fL (9.4-12.3); Monocytes Absolute Auto 0.4 X10*3/uL (0.1-1.2); Neutrophils Absolute Auto 8.5 X10*3/uL (2.0-8.3); Neutrophils Percent Auto 78.4 % (45-73); Platelet Count 312 X10*3/uL (160-400); Red Blood Count 5.07 X10*6/uL (4.20-5.50); Red Cell Distribution Width 13.4 % (11.0-16.0); White Blood Count 10.8 X10*3/uL (4.8-10.8)
[2020-06-20 04:08] LABS: Glucose, Whole Blood 167 mg/dL (60-115)
[2020-06-20 04:13] LABS: INTERNATIONAL NORM RATIO 1.6 (0.9-1.1); Prothrombin Time 19.6 SEC (10.8-13.0)
[2020-06-20 04:22] LABS: COVID-19 Test Negative (Negative)
[2020-06-20 04:39] LABS: Alanine Aminotransferase 15 U/L (0-31); Albumin Level 4.3 g/dL (3.5-5.0); Alkaline Phosphatase 81 U/L (39-117); Anion Gap 16 (12-20); Aspartate Amino Transferase 20 U/L (5-31); Bilirubin Total 0.7 mg/dL (0.0-1.0); Blood Urea Nitrogen 23 mg/dL (9-16); Calcium 10.2 mg/dL (8.4-10.2); Carbon Dioxide 28 mmol/L (22-29); Chloride 102 mmol/L (96-108); Creatinine Clr Calc Pharmacy 32.5; Estimated Glomerular Filt Rate 48; Glucose Random 164 mg/dL (60-115); Potassium 3.4 mmol/L (3.3-5.1); Sodium 143 mmol/L (135-145); Total Protein 7.2 g/dL (6.5-8.0)
[2020-06-20 04:39] LABS: Lactic Acid 2.8 mmol/L (0.5-2.0)
[2020-06-20] MEDS: 0.9 % Sodium Chloride 500 ML 999 ML IV (04:58)
[2020-06-20 06:05] LABS: Reflex Lactate? Lactic Acid Added
[2020-06-20 07:59] LABS: Appearance Urine HAZY; Color Urine YELLOW; Glucose Urine UA NEG (NEG); Leukocyte Esterase Urine 1+ (NEG); Nitrite Urine NEG (NEG); PH 6.5 (5.0-8.0); UACC Culture Trigger YES; Urine Blood NEG (NEG); Urine Ketones 15 MG/DL (NEG); Urine Protein TRACE MG/DL (NEG-TRACE)
[2020-06-20 08:09] LABS: Bacteria Urine TRACE /LPF; RBC Urine 0-2 /HPF (0); Squamous Epithelial Cell Urine 3+ /LPF
--- NOTE | 2020-06-20 10:34 | MHC.CM.ED ---
Case Management consult ordered early this morning. Per ZOHRA Barron, not needed. Patient already d/c'd home and is at baseline.
== END 2020-06-20 10:18 | disposition home or self-care (01) ==
PROVIDERS: Student in an Organized Health Care Education/Training Program; Emergency Provider Emergency Medicine; PCP Internal Medicine
DX: F03.90 Unspecified dementia, unspecified severity, without behavioral disturbance, psychotic disturbance, mood disturbance, and anxiety (principal); R07.81 Pleurodynia; R41.82 Altered mental status, unspecified; I10 Essential (primary) hypertension; Z20.822 Contact with and (suspected) exposure to COVID-19; Z79.899 Other long term (current) drug therapy
CPT/HCPCS: 36415; 70450; 71045; 71250; 80053; 81001; 81003; 82947; 83605; 85025; 85610; 87086; 87635; 93005; 96360; 99284

== ENCOUNTER → 2020-06-29 12:58 | Outpatient (BNVA) | payer MEDICARE, OTHER, SELFPAY | PROVIDERS: Visit Provider Nurse Practitioner Family | DX: I48.91 Unspecified atrial fibrillation (principal); I10 Essential (primary) hypertension; F32.9 Major depressive disorder, single episode, unspecified | CPT/HCPCS: 99212 ==

== ENCOUNTER 2020-09-07 07:00 | Inpatient (IN) | payer MEDICARE, OTHER, SELFPAY ==
[2020-09-07] VITALS (8 sets, daily range): BP systolic 122–160; BP diastolic 60–96; PULSE 54–89; RESP 14–18; TEMP 36.4–36.8; O2SAT 92–100; BMI 19.5
--- NOTE | ~2020-09-07 | CT_ITS ---
EXAMINATION: CT HEAD WITHOUT CONTRAST CLINICAL INFORMATION: A message on eloquence. COMPARISON: CT brain 06/19/2020 TECHNIQUE: Contiguous axial imaging was performed from the skull base to vertex without intravenous administration of contrast. This CT examination was performed using dose optimization techniques as appropriate, variously including the following: *Automated exposure control *Adjustment of mA and/or kV according to patient size (this includes techniques or standardized protocols for targeted exams where dose is matched to indication/reason for exam; i.e. extremities or head) *Use of iterative reconstruction technique DLP: 574 mGy-cm FINDINGS: There is no evidence of acute intracranial hemorrhage or territorial infarction. No abnormal mass effect or midline shift is seen. Smith to white matter differentiation is well preserved. No extra-axial fluid collections are identified. The ventricles are symmetrical and normal size. There is mild periventricular hypoattenuation slightly more prominent in the right frontal lobe suggestive of chronic small vessel ischemic changes. The osseous structures and soft tissues are normal. The mastoid air cells and visualized portions of the paranasal sinuses are well aerated. There are metallic beads along the superior right optic globe. There are unchanged previous study. CT/CT head/brain wo con IMPRESSION: No acute intracranial process seen. No change from 06/20/2020.
--- NOTE | ~2020-09-07 | MR_ITS ---
EXAMINATION: MR BRAIN WITHOUT CONTRAST CLINICAL INFORMATION: Tremor of head/neck. COMPARISON: Head CT 09/07/2020. TECHNIQUE: Multiplanar, multisequence imaging of the brain was performed without intravenous contrast. FINDINGS: There is no acute infarction, mass, hemorrhage, or extra-axial collection. The ventricles, sulci, and basilar cisterns are normal in size and configuration. Mild scattered foci of T2/FLAIR hyperintensity are seen in the cerebral white matter presumably reflecting mild chronic microangiopathy. Small chronic lacunar infarcts are seen in the bilateral basal ganglia and deep cerebral white matter. A mild degree of brain parenchymal volume loss is noted with commensurate prominence of ventricles and sulci. There is a right lens replacement. The flow voids of the major intracranial arteries appear intact. The bones and extracranial soft tissues are unremarkable. MR/MR head/brain wo con IMPRESSION: No acute infarct, mass lesion, intracranial hemorrhage, or evidence of hydrocephalus. Small chronic lacunar infarcts seen in the basal ganglia and deep white matter. Background changes of mild chronic microangiopathy.
--- NOTE | ~2020-09-07 | CT_ITS ---
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 COMPARISON: None TECHNIQUE: Multidetector volumetric images were obtained from the superior aspect of the liver through the pubic symphysis following administration 85 mL of Omnipaque 350 intravenous contrast. Sagittal and coronal reformatted images were obtained on the technologist's workstation. Oral contrast: No This CT examination was performed using dose optimization techniques as appropriate, variously including the following: *Automated exposure control *Adjustment of mA and/or kV according to patient size (this includes techniques or standardized protocols for targeted exams where dose is matched to indication/reason for exam; i.e. extremities or head) *Use of iterative reconstruction technique DLP: 484 mGy-cm FINDINGS: LUNG BASES: There is platelike atelectasis left lung base. The heart size is normal. LIVER, GALLBLADDER, AND BILIARY TREE: The liver is enlarged in size, elongated shape, and normal attenuation. There is a punctate 5 matter hypodensity right hepatic lobe and a 6 mm hypodensity left hepatic lobe probable cyst. There is no intrahepatic ductal dilatation seen The gallbladder is unremarkable with no evidence of radiopaque gallstones, gallbladder wall thickening, or obvious pericholecystic inflammatory changes. PANCREAS: Unremarkable. SPLEEN: Unremarkable. ADRENAL GLANDS: Unremarkable. KIDNEYS AND URETERS: The kidneys are normal in size, shape, and attenuation. There is a 6 mm partially exophytic cyst midpole right kidney and several smaller cortical cyst in the midpole and lower pole right kidney and lower pole left kidney. BLADDER: Unremarkable. GASTROINTESTINAL TRACT: There is moderate stool, diverticuli and gas seen in the colon without significant distention. The small bowel loops were of normal caliber. The stomach is nondistended. No free fluid or free air seen. ABDOMINAL WALL: A small umbilical hernia containing fat is noted. LYMPH NODES: Normal. VASCULAR: There is atherosclerotic calcification abdominal aorta without aneurysmal dilatation. PELVIC VISCERA: There is no free fluid or free air seen. The uterus is midline and appears unremarkable. OSSEOUS STRUCTURES: No lytic or sclerotic process seen. There is mild ventral spondylosis upper lumbar and lower dorsal spine. CT/CT abdomen pelvis w con IMPRESSION: Mild diverticulosis and constipation. No obstruction or inflammatory process. No abnormal lymphadenopathy. Mild hepatomegaly with likely simple cysts. Bilateral renal cysts are noted as well.
--- NOTE | ~2020-09-07 | XR_ITS ---
EXAMINATION: XR CHEST CLINICAL INFORMATION: AMS. COMPARISON: CT chest 06/20/2020 TECHNIQUE: Frontal view of the chest was obtained. FINDINGS: The lungs are hyperinflated but clear. The heart size and vascularity is normal. There are multiple posterior rib fractures likely secondary to trauma.. No additional abnormality seen. XR/XR chest 1V IMPRESSION: Hyperinflated lungs without acute process. No pneumothorax. Multiple right posterior rib fractures seen.
--- NOTE | 2020-09-07 07:30 | ECG_ITS ---
Test Reason : ALTER MENTAL Blood Pressure : / mmHG Vent. Rate : 077 BPM Atrial Rate : 090 BPM P-R Int : 000 ms QRS Dur : 094 ms QT Int : 386 ms P-R-T Axes : 000 -56 226 degrees QTc Int : 436 ms Atrial fibrillation with premature ventricular or aberrantly conducted complexes Left axis deviation Incomplete right bundle branch block Anteroseptal infarct (cited on or before 29-MAR-2020) ST & T wave abnormality, consider inferolateral ischemia Abnormal ECG When compared with ECG of 20-JUN-2020 04:23, Nonspecific T wave abnormality, worse in lateral leads QT has shortened Referred By: Allison Aguilar Electronically Signed By:Jamie Cardona
--- NOTE | 2020-09-07 07:34 | ED.AMS ---
HPI - Altered Mental Status General Chief Complaint: General Medical Stated Complaint: ?uti Time Seen by Provider: 09/07/20 07:28 Source: patient and family Mode of arrival: ambulatory Limitations: no limitations History of Present Illness MD complaint: confusion Onset (ago): day(s) (1) Timing confirmed by: family member Severity: moderate Consistency of symptoms: waxing and waning Context: history of similar presentation (with UTI in the past) Associated symptoms: other (thinks people are out to get her and is worried these people are going to take her to some place - she is well aware that she is saying these things) Related Data Home Medications Medication Instructions Recorded Confirmed omeprazole 1 cap PO DAILY 02/26/20 09/07/20 sertraline [Zoloft] 25 mg PO DAILY 02/26/20 09/07/20 amlodipine 10 mg tablet 10 mg PO DAILY 03/16/20 09/07/20 alprazolam 1 tab PO DAILY PRN 09/07/20 09/07/20 calcium carbonate-vitamin D3 1 tab PO DAILY 09/07/20 09/07/20 [Caltrate with Vitamin D3] diphenhydramine HCl [Benadryl] 25 mg PO BEDTIME 09/07/20 09/07/20 lisinopril 1 tab PO DAILY 09/07/20 09/07/20 melatonin 5 mg PO BEDTIME 09/07/20 09/07/20 sertraline 1 tab PO DAILY 09/07/20 09/07/20 Previous Rx's Medication Instructions Recorded metoprolol tartrate 100 mg tablet 100 mg PO BID 30 Days #60 tab 03/31/20 digoxin 125 mcg (0.125 mg) tablet 125 mcg PO DAILY #90 tab 04/26/20 apixaban 2.5 mg tablet 2.5 mg PO BID 30 Days #60 tab 05/13/20 furosemide 20 mg tablet 20 mg PO QAM #90 tab 05/25/20 Allergies Allergy/AdvReac Type Severity Reaction Status Date / Time No Known Allergies Allergy Verified 06/29/20 13:02 Review of Systems Review of Systems: Constitutional : No Weight loss, No Fever, No Chills, No Fatigue, No Malaise ENT/Mouth : No sore throat, No Rhinorrhea Eyes: No Eye Pain, No Swelling, No Redness Cardiovascular : No Chest Pain, No SOB, No Dyspnea on Exertion, No Orthopnea, No Edema, No Palpitations Respiratory : No Cough, No Sputum, No Wheezing Gastrointestinal : No Nausea, No Vomiting, No Diarrhea, No Constipation, No abdominal Pain, No Hematochezia, No Melena Genitourinary : pos Dysuria, No Urinary Frequency, No Hematuria, Musculoskeletal : No joint pain, No Myalgias, No Joint Swelling Skin : No Skin Lesions, No rash Neuro : No Weakness, No Numbness, No Dizziness, No Headache, pos confusion Psych : No Anxiety/Panic, No Depression Heme/Lymph: No Bruising, No Bleeding,No Lymphadenopathy Endocrine : No Polyuria, No Polydipsia All other systems reviewed and are negative [facility] Past Medical History Attestation statement: The following information was validated with the patient. Medical History Anxiety Atrial fibrillation with controlled ventricular rate Depression GERD (gastroesophageal reflux disease) HTN (hypertension) Social History Social History (Updated 09/07/20 @ 07:46 by Allison Aguilar DO) Household Members: Spouse Housing: House Do you presently have visiting nurse or other home services: Yes ([facility] for nursing and PT) Alcohol intake: never Patient Tobacco Use Status: Never used Tobacco Second Hand Smoke Exposure: No Advance Directives: Yes Advance Directives Information Provided: Yes Advance Directives on File: No service: No Current occupational status: retired Physical Exam Vital Signs: Vital Signs: Last Vital Signs Temp 97.8 F 09/07/20 07:13 Pulse 67 09/07/20 08:00 Resp 16 09/07/20 08:00 BP 149/76 H 09/07/20 08:00 Pulse Ox 100 09/07/20 08:00 Body Mass Index 19.5 Appearance: Alert. Oriented X3. No acute distress. Eyes: Pupils equal, round and reactive to light. ENT: Pharynx normal. Neck: Normal inspection. Neck supple. CVS: Normal heart rate and rhythm. Pulses normal. Respiratory: No respiratory distress. Breath sounds normal. Abdomen: Soft and non-tender. Skin: Skin warm and dry. Normal skin color. Normal skin turgor. Extremities: No lower extremity edema. No calf ttp Neuro: Oriented X 3. No motor deficit. No sensory deficit. Course Course Course Narrative: gentle fluids for NATE - has 4+ bacteria in urine and given dysuria will treat for presumed UTI with ceftriaxone MDM - Altered Mental Status MDM Narrative Medical decision making narrative: 79 yo female with hx of CHF, HTN, NATE, UTI, afib on nga and eliquis comes in with 1 day of delusions she is aware that she has them, family denies trauma, hx of UTI causing similar symptoms in the past at this time will need labs, CT head for ICH, UA, dispo per results and findings. Lab Data Result diagrams: 09/07/20 07:50 09/07/20 07:50 Labs: Lab Results 09/07/20 09/07/20 09/07/20 Range/Units 07:49 07:49 07:49 WBC (4.8-10.8) X10*3/uL RBC (4.20-5.50) X10*6/uL Hgb (12.0-16.0) g/dl Hct (37-47) % MCV (80-98) fL MCH (27.0-33.0) pg MCHC (31.0-35.0) g/dl RDW (11.0-16.0) % Plt Count (160-400) X10*3/uL MPV (9.4-12.3) fL Immature Gran % (Auto) (0.0-0.4) % Neut % (Auto) (45-73) % Lymph % (Auto) (20-40) % [place] % (Auto) (2-11) % Eos % (Auto) (0-4) % Baso % (Auto) (0-2) % Lymph # (Auto) (1.2-4.9) X10*3/uL [place] # (Auto) (0.1-1.2) X10*3/uL Eos # (Auto) (0.0-0.4) X10*3/uL Baso # (Auto) (0.0-0.2) X10*3/uL Abs Immat Gran (auto) (0.00-0.03) X10*3/uL Absolute Neuts (auto) (2.0-8.3) X10*3/uL Absolute Nucleated RBC (0.0-0.012) X10*3/uL Nucleated RBC % (auto) (0.0-0.2) /100WBC PT 15.6 H (9.9-13.0) SEC INR 1.4 H (0.9-1.1) APTT 40.0 H (24.1-38.0) SEC Sodium (135-145) mmol/L Potassium (3.3-5.1) mmol/L Chloride (96-108) mmol/L Carbon Dioxide (22-29) mmol/L Anion Gap (12-20) BUN (9-16) mg/dL Creatinine (0.5-1.4) mg/dL Estim Creat Clear Calc Estimated GFR Random Glucose (60-115) mg/dL Lactic Acid 1.1 (0.5-2.0) mmol/L Calcium (8.4-10.2) mg/dL Magnesium 1.8 (1.6-2.6) mg/dL Total Bilirubin 0.5 (0.0-1.0) mg/dL Direct Bilirubin 0.2 (0.0-0.5) mg/dL AST 17 (5-31) U/L ALT 13 (0-31) U/L Alkaline Phosphatase 68 (39-117) U/L Troponin I High Sens (<3.5-17.0) ng/L Total Protein 7.7 (6.5-8.0) g/dL Albumin 4.5 (3.5-5.0) g/dL Lipase 29 (8-78) U/L TSH 1.88 (0.32-4.0) uIU/mL Urine Color Urine Appearance Urine pH (5.0-8.0) Ur Specific [place] (1.005-1.025) Urine Protein (NEG-TRACE) MG/DL Urine Glucose (UA) (NEG) MG/DL Urine Ketones (NEG) MG/DL Urine Blood (NEG) Urine Nitrite (NEG) Ur Leukocyte Esterase (NEG) Urine RBC (0) /HPF Urine WBC (0-4) /HPF Ur Squamous Epith Cells /LPF Urine Bacteria /LPF 09/07/20 09/07/20 09/07/20 Range/Units 07:49 07:50 07:50 WBC 11.2 H (4.8-10.8) X10*3/uL RBC 4.94 (4.20-5.50) X10*6/uL Hgb 14.9 (12.0-16.0) g/dl Hct 42.8 (37-47) % MCV 86.6 (80-98) fL MCH 30.2 (27.0-33.0) pg MCHC 34.8 (31.0-35.0) g/dl RDW 14.3 (11.0-16.0) % Plt Count 297 (160-400) X10*3/uL MPV 10.8 (9.4-12.3) fL Immature Gran % (Auto) 0.4 (0.0-0.4) % Neut % (Auto) 76.0 H (45-73) % Lymph % (Auto) 18.4 L (20-40) % [place] % (Auto) 4.4 (2-11) % Eos % (Auto) 0.4 (0-4) % Baso % (Auto) 0.4 (0-2) % Lymph # (Auto) 2.1 (1.2-4.9) X10*3/uL [place] # (Auto) 0.5 (0.1-1.2) X10*3/uL Eos # (Auto) 0.0 (0.0-0.4) X10*3/uL Baso # (Auto) 0.0 (0.0-0.2) X10*3/uL Abs Immat Gran (auto) 0.04 H (0.00-0.03) X10*3/uL Absolute Neuts (auto) 8.6 H (2.0-8.3) X10*3/uL Absolute Nucleated RBC 0.000 (0.0-0.012) X10*3/uL Nucleated RBC % (auto) 0.0 (0.0-0.2) /100WBC PT (9.9-13.0) SEC INR (0.9-1.1) APTT (24.1-38.0) SEC Sodium 142 (135-145) mmol/L Potassium 3.0 L (3.3-5.1) mmol/L Chloride 100 (96-108) mmol/L Carbon Dioxide 28 (22-29) mmol/L Anion Gap 17 (12-20) BUN 33 H (9-16) mg/dL Creatinine 1.56 H (0.5-1.4) mg/dL Estim Creat Clear Calc 22.0 Estimated GFR 32 Random Glucose 121 H (60-115) mg/dL Lactic Acid (0.5-2.0) mmol/L Calcium 10.2 (8.4-10.2) mg/dL Magnesium (1.6-2.6) mg/dL Total Bilirubin (0.0-1.0) mg/dL Direct Bilirubin (0.0-0.5) mg/dL AST (5-31) U/L ALT (0-31) U/L Alkaline Phosphatase (39-117) U/L Troponin I High Sens 17.9 H* (<3.5-17.0) ng/L Total Protein (6.5-8.0) g/dL Albumin (3.5-5.0) g/dL Lipase (8-78) U/L TSH (0.32-4.0) uIU/mL Urine Color Urine Appearance Urine pH (5.0-8.0) Ur Specific [place] (1.005-1.025) Urine Protein (NEG-TRACE) MG/DL Urine Glucose (UA) (NEG) MG/DL Urine Ketones (NEG) MG/DL Urine Blood (NEG) Urine Nitrite (NEG) Ur Leukocyte Esterase (NEG) Urine RBC (0) /HPF Urine WBC (0-4) /HPF Ur Squamous Epith Cells /LPF Urine Bacteria /LPF 09/07/20 Range/Units 07:50 WBC (4.8-10.8) X10*3/uL RBC (4.20-5.50) X10*6/uL Hgb (12.0-16.0) g/dl Hct (37-47) % MCV (80-98) fL MCH (27.0-33.0) pg MCHC (31.0-35.0) g/dl RDW (11.0-16.0) % Plt Count (160-400) X10*3/uL MPV (9.4-12.3) fL Immature Gran % (Auto) (0.0-0.4) % Neut % (Auto) (45-73) % Lymph % (Auto) (20-40) % [place] % (Auto) (2-11) % Eos % (Auto) (0-4) % Baso % (Auto) (0-2) % Lymph # (Auto) (1.2-4.9) X10*3/uL [place] # (Auto) (0.1-1.2) X10*3/uL Eos # (Auto) (0.0-0.4) X10*3/uL Baso # (Auto) (0.0-0.2) X10*3/uL Abs Immat Gran (auto) (0.00-0.03) X10*3/uL Absolute Neuts (auto) (2.0-8.3) X10*3/uL Absolute Nucleated RBC (0.0-0.012) X10*3/uL Nucleated RBC % (auto) (0.0-0.2) /100WBC PT (9.9-13.0) SEC INR (0.9-1.1) APTT (24.1-38.0) SEC Sodium (135-145) mmol/L Potassium (3.3-5.1) mmol/L Chloride (96-108) mmol/L Carbon Dioxide (22-29) mmol/L Anion Gap (12-20) BUN (9-16) mg/dL Creatinine (0.5-1.4) mg/dL Estim Creat Clear Calc Estimated GFR Random Glucose (60-115) mg/dL Lactic Acid (0.5-2.0) mmol/L Calcium (8.4-10.2) mg/dL Magnesium (1.6-2.6) mg/dL Total Bilirubin (0.0-1.0) mg/dL Direct Bilirubin (0.0-0.5) mg/dL AST (5-31) U/L ALT (0-31) U/L Alkaline Phosphatase (39-117) U/L Troponin I High Sens (<3.5-17.0) ng/L Total Protein (6.5-8.0) g/dL Albumin (3.5-5.0) g/dL Lipase (8-78) U/L TSH (0.32-4.0) uIU/mL Urine Color YELLOW Urine Appearance HAZY Urine pH 6.0 (5.0-8.0) Ur Specific [place] 1.020 (1.005-1.025) Urine Protein TRACE (NEG-TRACE) MG/DL Urine Glucose (UA) NEG (NEG) MG/DL Urine Ketones NEG (NEG) MG/DL Urine Blood NEG (NEG) Urine Nitrite NEG (NEG) Ur Leukocyte Esterase 1+ H (NEG) Urine RBC 0 (0) /HPF Urine WBC 1-4 (0-4) /HPF Ur Squamous Epith Cells TRACE /LPF Urine Bacteria 4+ /LPF ECG Data ECG #1: Attestation: I personally reviewed and interpreted this ECG as follows: ECG interpretation date: 09/07/20 ECG interpretation time: 08:40 Interpretation: Rate: 77 Rhythm: afib [place]: left Normal QRS complex. ST T wave : artifact no HILARY , HILARY depression V4-V6 qTC: normal prior studies: no sig change from May The study has been interpreted contemporaneously by me. . Discharge Plan Discharge Clinical Impression: NATE (acute kidney injury), Delusions, Bacteriuria Patient Disposition: Admitted As Inpatient Prescriptions: No Action metoprolol tartrate 100 mg tablet 100 mg PO BID 30 Days Qty: 60 RF: 5 digoxin 125 mcg (0.125 mg) tablet 125 mcg PO DAILY Qty: 90 RF: 1 Eliquis 2.5 mg tablet 2.5 mg PO BID 30 Days Qty: 60 RF: 5 furosemide [Lasix] 20 mg tablet 20 mg PO QAM Qty: 90 RF: 1 sertraline [Zoloft] 25 mg tablet 25 mg PO DAILY RF: 0 omeprazole 20 mg capsule,delayed release(DR/EC) 1 cap PO DAILY RF: 0 sertraline 100 mg tablet 1 tab PO DAILY RF: 0 alprazolam 0.25 mg tablet 1 tab PO DAILY PRN (Reason: panic attack) RF: 0 lisinopril 40 mg tablet 1 tab PO DAILY RF: 0 diphenhydramine HCl [Benadryl] 25 mg Capsule 25 mg PO BEDTIME RF: 0 melatonin 5 mg Tablet 5 mg PO BEDTIME RF: 0 calcium carbonate-vitamin D3 [Caltrate with Vitamin D3] 600 mg(1,500mg) -800 unit Tablet 1 tab PO DAILY RF: 0 amlodipine 10 mg tablet 10 mg PO DAILY RF: 0
--- NOTE | 2020-09-07 07:58 | PHA.MEDREC ---
Pharmacy Consult ? Medication Reconciliation Pharmacy has completed the medication reconciliation.
[2020-09-07 08:00] LABS: MANUAL DIFF FLAG NO
[2020-09-07 08:01] LABS: Basophils Percent Auto 0.4 % (0-2); Eosinophils Percent Auto 0.4 % (0-4); Hematocrit 42.8 % (37-47); Hemoglobin 14.9 g/dl (12.0-16.0); Imm Gran Abs Auto 0.04 X10*3/uL (0.00-0.03); Imm Gran Pct Auto 0.4 % (0.0-0.4); Lymphocytes Absolute Auto 2.1 X10*3/uL (1.2-4.9); Lymphocytes Percent Auto 18.4 % (20-40); Mean Corpuscular HGB Conc 34.8 g/dl (31.0-35.0); Mean Corpuscular Hemoglobin 30.2 pg (27.0-33.0); Mean Corpuscular Volume 86.6 fL (80-98); Mean Platelet Volume 10.8 fL (9.4-12.3); Monocytes Absolute Auto 0.5 X10*3/uL (0.1-1.2); Monocytes Percent Auto 4.4 % (2-11); Neutrophils Absolute Auto 8.6 X10*3/uL (2.0-8.3); Platelet Count 297 X10*3/uL (160-400); Red Blood Count 4.94 X10*6/uL (4.20-5.50); Red Cell Distribution Width 14.3 % (11.0-16.0); White Blood Count 11.2 X10*3/uL (4.8-10.8)
[2020-09-07 08:03] LABS: Glucose Urine UA NEG (NEG); Leukocyte Esterase Urine 1+ (NEG); Nitrite Urine NEG (NEG); UACC Culture Trigger YES; Urine Blood NEG (NEG); Urine Ketones NEG (NEG); Urine Protein TRACE MG/DL (NEG-TRACE)
[2020-09-07 08:05] LABS: Appearance Urine HAZY; Color Urine YELLOW
[2020-09-07 08:07] LABS: INTERNATIONAL NORM RATIO 1.4 (0.9-1.1); Prothrombin Time 15.6 SEC (9.9-13.0)
[2020-09-07 08:12] LABS: Bacteria Urine 4+ /LPF; RBC Urine 0 /HPF (0); Squamous Epithelial Cell Urine TRACE /LPF
[2020-09-07 08:26] LABS: Lactic Acid 1.1 mmol/L (0.5-2.0)
[2020-09-07 08:28] LABS: Anion Gap 17 (12-20); Blood Urea Nitrogen 33 mg/dL (9-16); Calcium 10.2 mg/dL (8.4-10.2); Carbon Dioxide 28 mmol/L (22-29); Chloride 100 mmol/L (96-108); Estimated Glomerular Filt Rate 32; Glucose Random 121 mg/dL (60-115); Sodium 142 mmol/L (135-145)
[2020-09-07 08:30] LABS: Alanine Aminotransferase 13 U/L (0-31); Albumin Level 4.5 g/dL (3.5-5.0); Alkaline Phosphatase 68 U/L (39-117); Aspartate Amino Transferase 17 U/L (5-31); Bilirubin Direct 0.2 mg/dL (0.0-0.5); Bilirubin Total 0.5 mg/dL (0.0-1.0); Lipase 29 U/L (8-78); Magnesium 1.8 mg/dL (1.6-2.6); Total Protein 7.7 g/dL (6.5-8.0)
[2020-09-07 08:31] LABS: Troponin-I High Sensitivity 17.9 ng/L (<3.5-17.0)
[2020-09-07] MEDS: cefTRIAXone sodium 1 GM in 0.9 % Sodium Chloride 50 ML IV (08:48)
[2020-09-07] MEDS: Potassium Chloride ER 20 MEQ TAB.ER.PRT PO (08:48)
[2020-09-07] MEDS: 0.9 % Sodium Chloride 500 ML IV (08:49)
[2020-09-07 08:51] LABS: TSH reflex Free T4 1.88 uIU/mL (0.32-4.0)
[2020-09-07 09:24] LABS: Digoxin 0.9 ng/mL (0.8-2.0)
[2020-09-07 09:52] LABS: COVID-19 Test Negative (Negative); IDNOW Serial# 9DD0AD1C
--- NOTE | 2020-09-07 11:05 | PM.IMHP ---
History of Present Illness Date of Service: 09/07/20 Chief Complaint: confusion Mrs Joe is an 79 year-old woman with past medical history of atrial fibrillation anticoagulated with apixaban, diastolic heart failure, hypertension, and anxiety who was brought into the ED by her daughter due to confusion and delusions that started yesterday, along with malaise. The patient is fully oriented but apparently thinks other people are out to get her ; but she also is aware that these thoughts are delusional. She does endorse urinary urgency and dysuria, and per her daughter, has had similar episodes of confusion associated with past UTIs. She denies fever, chills, nausea, vomiting, abdominal pain, flank pain, or hematuria. She denies cough, dyspnea, pain, chest pressure, or edema. She lives at home with her and her daughter comes over daily to help her with meal preparation and dressing. She uses a walker for ambulation. In the ED, she was noted to have mild leucocytosis with WBC of 11.2; acute kidney injury with SCr of 1.56 (baseline around 0.9-1); hypokalemia with K of 3; and hs-Tn-I elevation to 17.9. EKG showed AF with incomplete RBBB, LAFB, and inferior T wave flattening and lateral T wave inversions present on prior EKG on 06/20/20. Review of Systems Review of Systems: Yes all other systems are reviewed and are negative [facility] Medical History (Updated 09/07/20 @ 11:18 by Irina Acosta MD) Anxiety Atrial fibrillation with controlled ventricular rate Depression Diastolic heart failure GERD (gastroesophageal reflux disease) History of rib fracture HTN (hypertension) Functional capacity: uses cane/walker Pertinent family history: father of [place] in his 60s Social History Household Members: Spouse Housing: House Do you presently have visiting nurse or other home services: Yes (VNA for nursing and PT) Alcohol intake: never Patient Tobacco Use Status: Never used Tobacco Second Hand Smoke Exposure: No Advance Directives: Yes Advance Directives Information Provided: Yes Advance Directives on File: No service: No Current occupational status: retired Meds Allergies Allergy/AdvReac Type Severity Reaction Status Date / Time No Known Allergies Allergy Verified 06/29/20 13:02 Active Medications: Current Medications Generic Name Dose Route Start Last Admin Trade Name Daina PRN Reason Stop Dose Admin Alprazolam 0.25 mg 09/07/20 10:45 Alprazolam 0.25 Mg Tablet PO DAILY PRN panic attack Amlodipine Besylate 10 mg 09/07/20 10:50 Amlodipine Besylate 10 Mg Tablet PO DAILY [facility] Protocol Apixaban 2.5 mg 09/07/20 10:50 Apixaban 2.5 Mg Tablet PO BID [facility] Calcium Carbonate/Cholecalciferol 500 mg 09/08/20 09:00 Calcium + Vitamin D 250 Mg Tablet PO DAILY [facility] Digoxin 0.125 mg 09/07/20 10:50 Digoxin 0.125 Mg Tablet PO DAILY [facility] Sodium Chloride 1,000 mls @ 50 mls/hr 09/07/20 11:15 Ns IVCONT 09/07/20 21:14 .Q20H [facility] Melatonin 6 mg 09/07/20 21:00 Melatonin 3 Mg Tablet PO BEDTIME [facility] Metoprolol Tartrate 100 mg 09/07/20 10:50 Metoprolol Tartrate 100 Mg Tablet PO BID [facility] Protocol Omeprazole 20 mg 09/07/20 10:50 Omeprazole 20 Mg Capsule.Dr PO DAILY [facility] Pharmacy Consult 1 each 09/07/20 07:29 Consult Rx Perform Med Rec MISCELLANE ONCE PRN Consult order Sertraline HCl 100 mg 09/07/20 10:50 Sertraline Hcl 100 Mg Tablet PO DAILY [facility] Sertraline HCl 25 mg 09/07/20 10:50 Sertraline Hcl 25 Mg Tablet PO DAILY [facility] Sodium Chloride 3 ml 09/07/20 16:00 0.9 % Sodium Chloride Flush 3 Ml Syringe [facility] Home Medications Medication Instructions Recorded Confirmed Last Taken Type omeprazole 1 cap PO DAILY 02/26/20 09/07/20 09/06/20 History sertraline [Zoloft] 25 mg PO DAILY 02/26/20 09/07/20 09/06/20 History amlodipine 10 mg tablet 10 mg PO DAILY 03/16/20 09/07/20 09/06/20 History alprazolam 1 tab PO DAILY PRN 09/07/20 09/07/20 Unknown History calcium carbonate-vitamin D3 1 tab PO DAILY 09/07/20 09/07/20 09/06/20 History [Caltrate with Vitamin D3] diphenhydramine HCl [Benadryl] 25 mg PO BEDTIME 09/07/20 09/07/20 09/06/20 History lisinopril 1 tab PO DAILY 09/07/20 09/07/20 09/06/20 History melatonin 5 mg PO BEDTIME 09/07/20 09/07/20 09/06/20 History sertraline 1 tab PO DAILY 09/07/20 09/07/20 09/06/20 History Physical Exam Vital Signs and Narrative: Vital Signs: Last Vital Signs Temp 97.8 F 09/07/20 07:13 Pulse 67 09/07/20 08:00 Resp 16 09/07/20 08:00 BP 149/76 H 09/07/20 08:00 Pulse Ox 100 09/07/20 08:00 Body Mass Index 19.5 Gen: in no acute distress HEENT: sclera anicteric, moist mucus membranes Neck: supple Lungs: clear to auscultation bilaterally Heart: irregularly irregular, no murmurs Abd: soft, non-tender, non-distended : no CVA tenderness Ext: no edema Skin: warm/well-perfused Neuro: alert and oriented x3, no focal findings Psych: appropriate affect Results Labs CBC and Chem 7: 09/07/20 07:50 09/07/20 07:50 Labs: Laboratory Results - last 24 hr 09/07/20 09/07/20 09/07/20 07:49 07:49 07:49 MCV MCH MCHC RDW Plt Count MPV Immature Gran % (Auto) Neut % (Auto) Lymph % (Auto) [place] % (Auto) Eos % (Auto) Baso % (Auto) Lymph # (Auto) [place] # (Auto) Eos # (Auto) Baso # (Auto) Abs Immat Gran (auto) Absolute Neuts (auto) Absolute Nucleated RBC Nucleated RBC % (auto) PT 15.6 H INR 1.4 H APTT 40.0 H Anion Gap Estim Creat Clear Calc Estimated GFR Random Glucose Lactic Acid 1.1 Calcium Magnesium 1.8 Total Bilirubin 0.5 Direct Bilirubin 0.2 AST 17 ALT 13 Alkaline Phosphatase 68 Troponin I High Sens Total Protein 7.7 Albumin 4.5 Lipase 29 TSH 1.88 Urine Color Urine Appearance Urine pH Ur Specific [place] Urine Protein Urine Glucose (UA) Urine Ketones Urine Blood Urine Nitrite Ur Leukocyte Esterase Urine RBC Urine WBC Ur Squamous Epith Cells Urine Bacteria Digoxin COVID-19 ([facility]) COVID-19 Clin Com 09/07/20 09/07/20 09/07/20 07:49 07:50 07:50 MCV 86.6 MCH 30.2 MCHC 34.8 RDW 14.3 Plt Count 297 MPV 10.8 Immature Gran % (Auto) 0.4 Neut % (Auto) 76.0 H Lymph % (Auto) 18.4 L [place] % (Auto) 4.4 Eos % (Auto) 0.4 Baso % (Auto) 0.4 Lymph # (Auto) 2.1 [place] # (Auto) 0.5 Eos # (Auto) 0.0 Baso # (Auto) 0.0 Abs Immat Gran (auto) 0.04 H Absolute Neuts (auto) 8.6 H Absolute Nucleated RBC 0.000 Nucleated RBC % (auto) 0.0 PT INR APTT Anion Gap 17 Estim Creat Clear Calc 22.0 Estimated GFR 32 Random Glucose 121 H Lactic Acid Calcium 10.2 Magnesium Total Bilirubin Direct Bilirubin AST ALT Alkaline Phosphatase Troponin I High Sens 17.9 H* Total Protein Albumin Lipase TSH Urine Color Urine Appearance Urine pH Ur Specific [place] Urine Protein Urine Glucose (UA) Urine Ketones Urine Blood Urine Nitrite Ur Leukocyte Esterase Urine RBC Urine WBC Ur Squamous Epith Cells Urine Bacteria Digoxin COVID-19 ([facility]LEE) COVID-19 Clin Com 09/07/20 09/07/20 09/07/20 07:50 08:36 09:30 MCV MCH MCHC RDW Plt Count MPV Immature Gran % (Auto) Neut % (Auto) Lymph % (Auto) [place] % (Auto) Eos % (Auto) Baso % (Auto) Lymph # (Auto) [place] # (Auto) Eos # (Auto) Baso # (Auto) Abs Immat Gran (auto) Absolute Neuts (auto) Absolute Nucleated RBC Nucleated RBC % (auto) PT INR APTT Anion Gap Estim Creat Clear Calc Estimated GFR Random Glucose Lactic Acid Calcium Magnesium Total Bilirubin Direct Bilirubin AST ALT Alkaline Phosphatase Troponin I High Sens Total Protein Albumin Lipase TSH Urine Color YELLOW Urine Appearance HAZY Urine pH 6.0 Ur Specific [place] 1.020 Urine Protein TRACE Urine Glucose (UA) NEG Urine Ketones NEG Urine Blood NEG Urine Nitrite NEG Ur Leukocyte Esterase 1+ H Urine RBC 0 Urine WBC 1-4 Ur Squamous Epith Cells TRACE Urine Bacteria 4+ Digoxin 0.9 COVID-19 ([facility]) Negative COVID-19 Clin Com See Note Imaging Radiologist's Impressions: Impressions Head CT 09/07/20 07:29 IMPRESSION: No acute intracranial process seen. No change from 06/20/2020. Chest X-Ray 09/07/20 07:30 IMPRESSION: Hyperinflated lungs without acute process. No pneumothorax. Multiple right posterior rib fractures seen. Assessment and Plan (1) Toxic encephalopathy: Status: Acute (2) UTI (urinary tract infection): Status: Acute 79yo F with AF, chronic HFpEF, and HTN presenting with acute delusions associated with urinary urgency and dysuria, likely encephalopathy due to UTI. She also has NATE, hypokalemia, and troponin elevation. # UTI - admit to med/surg, IV ceftriaxone, follow UCx # toxic encephalopathy - likely due to UTI, treat as above, monitor mental status # troponin elevation - no acute EKG changes and no chest pain/pressure; likely due to NATE; will repeat 3-hr hs-Tn-I # NATE - hold lisinopril + furosemide; will give 500 mL of NS; avoid nephrotoxins; recheck BMP in am # hypoK - replete; recehck BMP in am # HTN # chronic HFpEF - continue metoprolol + amlodipine; hold lisinopril + furosemide as above # AF - continue metoprolol + apixaban # GERD - continue PPI # anxiety - continue sertraline, prn alprazolam, melatonin # VTE ppx - apixaban # code - full, though would not want prolonged mechanical ventilation per daughter Quality Stroke Does the patient have a stroke diagnosis?: No VTE Prior VTE?: No VTE Risk Level:: Medical - moderate - high VTE Device Contraindication: N/A - Device Ordered VTE Drug Contraindication: N/A - Med Ordered
[2020-09-07 12:38] LABS: Troponin-I High Sensitivity 12.2 ng/L (<3.5-17.0)
--- NOTE | 2020-09-07 14:30 | PC.NURSE ---
spoke with Dr carrasco, about IV fluid order at 50/ hr pt has already gotted a total of 500 ml stated that patient didnt need additionl fluids
[2020-09-07] MEDS: 0.9 % Sodium Chloride Flush 3 ML SYRINGE IVFLUSH (15:07)
--- NOTE | 2020-09-07 17:33 | MHC.CM.PN ---
CM met with pt. Pt A&Ox3. Pt aware of some confusion. States this has happened before when she has a UTI. IMM reviewed with HCP/daughter, Katia Shaver([phone]). Not on file. Copy requested. Pt and Katia state HCP is at [facility]. Pt lives with , Robert ([phone]). Daughter helps with some meal prep and with showering. Pt has a walker that she no longer uses. States she used it when she fell and broke her ribs. Pt still thinks she has VNA services, but daughter verifies that those services were d/c'd and pt had them after she fx her ribs. Pt is very concerned about recent weight loss, having no clothes that fit her and needing more depends. CM spoke with her daughter about these concerns and daughter tells CM that her mother has plenty of clothes that fit her, and this is something that she often deals with with her mother. Daughter also states that her mother is very fearful to leave the house and will not go into stores. States that her mother has a psychiatrist and she sees him and her PCP via telehealth. She will not go into office. Katia feels her mother has some dementia, but it is not diagnosed. Pt does have a history of anxiety and depression. Pt is fully vaccinated with [employer] and received her vaccinations at home from the [facility]. D/C plan is home without services. If confusion remains after UTI tx, may need psych evaluation prior to d/c. Transportation by family.
[2020-09-07] MEDS: ALPRAZolam 0.25 MG TABLET PO (19:01)
[2020-09-07] MEDS: Metoprolol Tartrate 100 MG TABLET PO (20:18)
[2020-09-07] MEDS: Melatonin 3 MG TABLET 6 MG PO (20:18)
[2020-09-07] MEDS: Apixaban 2.5 MG TABLET PO (20:18)
--- NOTE | 2020-09-08 | EEG_ITS ---
The waking background activity consists of a moderate voltage 7.5 to 8 hertz frequency, intermixed anteriorly with discharges seen in the bifrontal distribution with right-sided predominance. Photic stimulation is without activation. Hyperventilation was omitted. IMPRESSION: This EEG is considered mildly abnormal due to some paroxysmal sharp theta seen with a bifrontal distribution and right-sided predominance that may suggest mild cerebral irritability in the right frontocentral region. No clearly epileptiform discharges seen. Clinical correlation is suggested. MD GRETA Valdez/KATHERINE / [id number]
[2020-09-08] MEDS: 0.9 % Sodium Chloride Flush 3 ML SYRINGE IVFLUSH ×3 (01:10→15:41)
[2020-09-08 06:53] LABS: Hematocrit 38.5 % (37-47); Mean Corpuscular HGB Conc 33.8 g/dl (31.0-35.0); Mean Corpuscular Hemoglobin 29.5 pg (27.0-33.0); Mean Corpuscular Volume 87.3 fL (80-98); Mean Platelet Volume 10.9 fL (9.4-12.3); Platelet Count 255 X10*3/uL (160-400); Red Blood Count 4.41 X10*6/uL (4.20-5.50); Red Cell Distribution Width 14.4 % (11.0-16.0)
[2020-09-08 07:09] LABS: Anion Gap 14 (12-20); Blood Urea Nitrogen 36 mg/dL (9-16); Calcium 9.5 mg/dL (8.4-10.2); Carbon Dioxide 26 mmol/L (22-29); Chloride 105 mmol/L (96-108); Creatinine Clr Calc Pharmacy 35.8; Estimated Glomerular Filt Rate 56; Glucose Random 93 mg/dL (60-115); Magnesium 1.9 mg/dL (1.6-2.6); Potassium 3.1 mmol/L (3.3-5.1); Sodium 142 mmol/L (135-145)
[2020-09-08 07:21] VITALS: BP 155/77; PULSE 69; RESP 17; TEMP 36.4; O2SAT 96
[2020-09-08] MEDS: cefTRIAXone sodium 1 GM in 0.9 % Sodium Chloride 50 ML IV (08:43)
[2020-09-08] MEDS: Potassium Chloride ER 20 MEQ TAB.ER.PRT 40 MEQ PO (08:49)
[2020-09-08] MEDS: Sertraline HCL 25 MG TABLET PO (08:49)
[2020-09-08] MEDS: Calcium + Vitamin D 250 MG TABLET 500 MG PO (08:50)
[2020-09-08] MEDS: Metoprolol Tartrate 100 MG TABLET PO ×2 (08:50→20:31)
[2020-09-08] MEDS: Apixaban 2.5 MG TABLET PO ×2 (08:50→20:31)
[2020-09-08] MEDS: Omeprazole 20 MG CAPSULE.DR PO (08:50)
[2020-09-08] MEDS: amLODIPine Besylate 10 MG TABLET PO (08:50)
[2020-09-08] MEDS: Digoxin 0.125 MG TABLET PO (08:50)
[2020-09-08] MEDS: Sertraline HCL 100 MG TABLET PO (08:50)
[2020-09-08 10:15] VITALS: BP 155/77; PULSE 69; O2SAT 96
--- NOTE | 2020-09-08 11:41 | P.PNIM_ITS ---
Subjective Subjective Date of Service: 09/08/20 Interval History: urinary symptoms improved confusion improved Physical Exam Vital Signs: Vital Signs: Last Vital Signs Temp 97.5 F 09/08/20 07:21 Pulse 69 09/08/20 10:15 Resp 17 09/08/20 07:21 BP 155/77 H 09/08/20 10:15 Pulse Ox 96 09/08/20 10:15 Body Mass Index 19.5 Gen: in no acute distress HEENT: sclera anicteric, moist mucus membranes Neck: supple Lungs: clear to auscultation bilaterally Heart: irregularly irregular, no murmurs Abd: soft, non-tender, non-distended : no CVA tenderness Ext: no edema Skin: warm/well-perfused Neuro: alert and oriented x3, no focal findings Psych: appropriate affect Objective Data Current Medications Generic Name Dose Route Start Last Admin Trade Name Freq PRN Reason Stop Dose Admin Acetaminophen 650 mg 09/07/20 11:03 Acetaminophen 325 Mg Tablet PO Q6H PRN Pain, Mild (Pain Scale 1-3) Alprazolam 0.25 mg 09/07/20 10:45 09/07/20 19:01 Alprazolam 0.25 Mg Tablet PO 0.25 mg DAILY PRN Administration panic attack Amlodipine Besylate 10 mg 09/07/20 10:50 09/08/20 08:50 Amlodipine Besylate 10 Mg Tablet PO 10 mg DAILY L[facility] Administration Protocol Apixaban 2.5 mg 09/07/20 10:50 09/08/20 08:50 Apixaban 2.5 Mg Tablet PO 2.5 mg BID [facility]Y Administration Calcium Carbonate/Cholecalciferol 500 mg 09/08/20 09:00 09/08/20 08:50 Calcium + Vitamin D 250 Mg Tablet PO 500 mg DAILY [facility] Administration Digoxin 0.125 mg 09/07/20 10:50 09/08/20 08:50 Digoxin 0.125 Mg Tablet PO 0.125 mg DAILY [facility] Administration Ceftriaxone Sodium 1 gm/ 50 mls @ 100 mls/hr 09/08/20 09:00 09/08/20 09:34 Sodium Chloride IV Infused Q24H [facility] Infusion Melatonin 6 mg 09/07/20 21:00 09/07/20 20:18 Melatonin 3 Mg Tablet PO 6 mg BEDTIME [facility] Administration Metoprolol Tartrate 100 mg 09/07/20 10:50 09/08/20 08:50 Metoprolol Tartrate 100 Mg Tablet PO 100 mg BID [facility] Administration Protocol Omeprazole 20 mg 09/07/20 10:50 09/08/20 08:50 Omeprazole 20 Mg Capsule.Dr PO 20 mg DAILY [facility] Administration Ondansetron HCl 4 mg 09/07/20 11:03 Ondansetron Hcl 4 Mg/2 Ml Vial IVPUSH Q8H PRN Nausea and Vomiting Pharmacy Consult 1 each 09/07/20 07:29 Consult Rx Perform Med Rec MISCELLANE ONCE PRN Consult order Sertraline HCl 100 mg 09/07/20 10:50 09/08/20 08:50 Sertraline Hcl 100 Mg Tablet PO 100 mg DAILY [facility]Y Administration Sertraline HCl 25 mg 09/07/20 10:50 09/08/20 08:49 Sertraline Hcl 25 Mg Tablet PO 25 mg DAILY [facility] Administration Sodium Chloride 3 ml 09/07/20 16:00 09/08/20 08:49 0.9 % Sodium Chloride Flush 3 Ml Syringe IVFLUSH 3 ml QSHIFT [facility] Administration Labs CBC & Chem 7: 09/08/20 06:30 09/08/20 06:30 Labs: Laboratory Results - last 24 hr 09/07/20 09/08/20 09/08/20 11:55 06:30 06:30 WBC 9.0 RBC 4.41 Hgb 13.0 Hct 38.5 MCV 87.3 MCH 29.5 MCHC 33.8 RDW 14.4 Plt Count 255 MPV 10.9 Absolute Nucleated RBC 0.000 Nucleated RBC % (auto) 0.0 Sodium 142 Potassium 3.1 L Chloride 105 Carbon Dioxide 26 Anion Gap 14 BUN 36 H Creatinine 0.96 Estim Creat Clear Calc 35.8 Estimated GFR 56 Random Glucose 93 Calcium 9.5 D Magnesium 1.9 Troponin I High Sens 12.2 Microbiology Microbiology Results: Microbiology 09/07/20 07:51 Blood Culture - Preliminary Blood - Venous No growth after 24 hours. 09/07/20 07:49 Blood Culture - Preliminary Blood - Venous No growth after 24 hours. 09/07/20 Unknown Urine Culture - Preliminary Urine clean catch - Clean Catch Midstream Gram negative jaelyn Quality Stroke Does the patient have a stroke diagnosis?: No VTE Prior VTE?: No VTE Risk Level:: Medical - moderate - high VTE Device Contraindication: N/A - Device Ordered VTE Drug Contraindication: N/A - Med Ordered Assessment and Plan (1) UTI (urinary tract infection): Status: Acute (2) Toxic encephalopathy: Status: Acute Assessment and Plan: hospital d#2 79yo F with AF, chronic HFpEF, and HTN presenting with acute delusions associated with urinary urgency and dysuria, likely encephalopathy due to UTI # UTI - IV ceftriaxone d#2, follow UCx- growing GNRs # toxic-metabolic encephalopathy - likely due to UTI + NATE, improving # troponin elevation - no acute EKG changes and no chest pain/pressure; likely due to NATE; repeat decreased # NATE - resolved after holding lisinopril + furosemide and giving 500 mL of NS; avoid nephrotoxins; recheck BMP in am # hypoK - replete; recheck BMP again in am # HTN # chronic HFpEF - continue metoprolol + amlodipine; held lisinopril + furosemide as above # AF - continue metoprolol + apixaban # GERD - continue PPI # anxiety - continue sertraline, prn alprazolam, melatonin # VTE ppx - apixaban # dispo - anticipate home with VNA
[2020-09-08 15:11] VITALS: BP 147/71; PULSE 67; RESP 14; TEMP 36.1; O2SAT 96
--- NOTE | 2020-09-08 15:33 | PC.NURSE ---
0900 c/o feeling shaky felt occ tremor in upper extremities. Warm blanket given. 1400 states feeling more shaky. able to observe intermittant tremors. Pt denies ever having this before. Dr Acosta notified. New orders received for neuro consult and MRI
--- NOTE | 2020-09-08 15:37 | PM.NEUROCN ---
History of Present Illness Data of Consult Service Date: 09/08/20 Primary Care Provider: Lazara Oneill MD 79 years old woman I was asked to see hand and head tremor. She said that she never had these tremors before this hospitalization. She was admitted hospital with confusion and delusional thinking with possible urinary tract infection.There was no complaint of any pain or headache. [facility] Past Medical History Medical History (Updated 09/07/20 @ 11:18 by Irina Acosta MD) Anxiety Atrial fibrillation with controlled ventricular rate Depression Diastolic heart failure GERD (gastroesophageal reflux disease) History of rib fracture HTN (hypertension) Functional capacity: uses cane/walker Social History Social History Household Members: Spouse Housing: House Do you presently have visiting nurse or other home services: No Alcohol intake: never Patient Tobacco Use Status: Never used Tobacco Second Hand Smoke Exposure: No Use of substances other than those prescribed or required for medical reasons: No Currently Displaying Signs/Symptoms of Drug Intoxication Withdrawal: No Have you been hit, kicked, punched, or otherwise hurt by someone within the past year? 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 Advance Directives: Yes Advance Directives Information Provided: Yes Advance Directives on File: No Advance Directives Date on File: 09/07/20 Do you have thoughts of harming others: None Do you have a plan to hurt others: No Plan Recently lost weight without trying: No Nutrition Risks: No Nutritional Risk Patient : No : No Poor oral hygiene: No service: No Current occupational status: retired Meds Allergies Allergy/AdvReac Type Severity Reaction Status Date / Time No Known Allergies Allergy Verified 06/29/20 13:02 Active Medications: Current Medications Generic Name Dose Route Start Last Admin Trade Name Freq PRN Reason Stop Dose Admin Acetaminophen 650 mg 09/07/20 11:03 Acetaminophen 325 Mg Tablet PO Q6H PRN Pain, Mild (Pain Scale 1-3) Alprazolam 0.25 mg 09/07/20 10:45 09/07/20 19:01 Alprazolam 0.25 Mg Tablet PO 0.25 mg DAILY PRN Administration panic attack Amlodipine Besylate 10 mg 09/07/20 10:50 09/08/20 08:50 Amlodipine Besylate 10 Mg Tablet PO 10 mg DAILY LINDSAY Administration Protocol Apixaban 2.5 mg 09/07/20 10:50 09/08/20 08:50 Apixaban 2.5 Mg Tablet PO 2.5 mg BID LINDSAY Administration Calcium Carbonate/Cholecalciferol 500 mg 09/08/20 09:00 09/08/20 08:50 Calcium + Vitamin D 250 Mg Tablet PO 500 mg DAILY LINDSAY Administration Digoxin 0.125 mg 09/07/20 10:50 09/08/20 08:50 Digoxin 0.125 Mg Tablet PO 0.125 mg DAILY LINDSAY Administration Ceftriaxone Sodium 1 gm/ 50 mls @ 100 mls/hr 09/08/20 09:00 09/08/20 09:34 Sodium Chloride IV Infused Q24H LINDSAY Infusion Melatonin 6 mg 09/07/20 21:00 09/07/20 20:18 Melatonin 3 Mg Tablet PO 6 mg BEDTIME LINDSAY Administration Metoprolol Tartrate 100 mg 09/07/20 10:50 09/08/20 08:50 Metoprolol Tartrate 100 Mg Tablet PO 100 mg BID LINDSAY Administration Protocol Omeprazole 20 mg 09/07/20 10:50 09/08/20 08:50 Omeprazole 20 Mg Capsule.Dr PO 20 mg DAILY LINDSAY Administration Ondansetron HCl 4 mg 09/07/20 11:03 Ondansetron Hcl 4 Mg/2 Ml Vial IVPUSH Q8H PRN Nausea and Vomiting Pharmacy Consult 1 each 09/07/20 07:29 Consult Rx Perform Med Rec MISCELLANE ONCE PRN Consult order Sertraline HCl 100 mg 09/07/20 10:50 09/08/20 08:50 Sertraline Hcl 100 Mg Tablet PO 100 mg DAILY LINDSAY Administration Sertraline HCl 25 mg 09/07/20 10:50 09/08/20 08:49 Sertraline Hcl 25 Mg Tablet PO 25 mg DAILY LINDSAY Administration Sodium Chloride 3 ml 09/07/20 16:00 09/08/20 08:49 0.9 % Sodium Chloride Flush 3 Ml Syringe IVFLUSH 3 ml QSHIFT LINDSAY Administration Home Medications Medication Instructions Recorded Confirmed Last Taken Type omeprazole 1 cap PO DAILY 02/26/20 09/07/20 09/06/20 History sertraline [Zoloft] 25 mg PO DAILY 02/26/20 09/07/20 09/06/20 History amlodipine 10 mg tablet 10 mg PO DAILY 03/16/20 09/07/20 09/06/20 History alprazolam 1 tab PO DAILY PRN 09/07/20 09/07/20 Unknown History calcium carbonate-vitamin D3 1 tab PO DAILY 09/07/20 09/07/20 09/06/20 History [Caltrate with Vitamin D3] diphenhydramine HCl [Benadryl] 25 mg PO BEDTIME 09/07/20 09/07/20 09/06/20 History lisinopril 1 tab PO DAILY 09/07/20 09/07/20 09/06/20 History melatonin 5 mg PO BEDTIME 09/07/20 09/07/20 09/06/20 History sertraline 1 tab PO DAILY 09/07/20 09/07/20 09/06/20 History Physical Exam Vital Signs: Vital Signs: Last Vital Signs Temp 97.0 F 09/08/20 15:11 Pulse 67 09/08/20 15:11 Resp 14 09/08/20 15:11 BP 147/71 H 09/08/20 15:11 Pulse Ox 96 09/08/20 15:11 Body Mass Index 19.5 She was alert and awake with normal spontaneity of speech fluency comprehension and anxious affect. Speech was normal. Pupils were equal and reactive to light. Extraocular muscles were intact. Deep tendon reflexes were trace to absent with flexor plantars. There was mild postural tremor in outstretched hands. No distinct head tremor was noted. 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 Otherwise there was no significant abnormality. Microbiology Microbiology Results: Microbiology 09/07/20 07:51 Blood - Venous Blood Culture - Preliminary No growth after 24 hours. 09/07/20 07:49 Blood - Venous Blood Culture - Preliminary No growth after 24 hours. 09/07/20 Unknown Urine clean catch - Clean Catch Midstream Urine Culture - Preliminary Gram negative jaelyn Assessment and Plan (1) Toxic encephalopathy: Status: Acute 79 years old woman who presented to hospital with delirium. She was noted to have head and hand tremor, which according to her was new. This was probably part of encephalopathy. Encephalopathy could be due to infection. This would raise possibility of underlying dementing illness including possibility of Lewy body dementia. For now treatment of encephalopathy is recommended. No particular treatment for tremor is recommended at this time. Clinical follow-up could continue and if needed she could be seen in outpatient neurology clinic. Procedures Date of Service Date of Service: 09/08/20
[2020-09-08] MEDS: ALPRAZolam 0.25 MG TABLET PO (15:53)
[2020-09-08 20:31] VITALS: BP 127/66; PULSE 76
[2020-09-08] MEDS: Melatonin 3 MG TABLET 6 MG PO (20:34)
[2020-09-08 23:45] VITALS: BP 166/80; PULSE 58; RESP 18; TEMP 36.2; O2SAT 98
[2020-09-09] MEDS: 0.9 % Sodium Chloride Flush 3 ML SYRINGE IVFLUSH ×4 (00:53→21:21)
[2020-09-09 06:58] LABS: Anion Gap 14 (12-20); Blood Urea Nitrogen 31 mg/dL (9-16); Calcium 9.9 mg/dL (8.4-10.2); Carbon Dioxide 25 mmol/L (22-29); Chloride 108 mmol/L (96-108); Creatinine Clr Calc Pharmacy 40.4; Estimated Glomerular Filt Rate > 60; Glucose Random 117 mg/dL (60-115); Potassium 3.6 mmol/L (3.3-5.1); Sodium 143 mmol/L (135-145)
[2020-09-09 07:35] VITALS: BP 144/70; PULSE 58; RESP 17; TEMP 36.1; O2SAT 96
[2020-09-09] MEDS: cefTRIAXone sodium 1 GM in 0.9 % Sodium Chloride 50 ML IV (10:13)
[2020-09-09] MEDS: Sertraline HCL 25 MG TABLET PO (10:14)
[2020-09-09] MEDS: Calcium + Vitamin D 250 MG TABLET 500 MG PO (10:14)
[2020-09-09] MEDS: Digoxin 0.125 MG TABLET PO (10:14)
[2020-09-09] MEDS: amLODIPine Besylate 10 MG TABLET PO (10:14)
[2020-09-09] MEDS: Sertraline HCL 100 MG TABLET PO (10:14)
[2020-09-09] MEDS: Omeprazole 20 MG CAPSULE.DR PO (10:14)
[2020-09-09 10:15] VITALS: PULSE 58
[2020-09-09] MEDS: Apixaban 2.5 MG TABLET PO ×2 (10:15→21:14)
[2020-09-09 11:09] VITALS: PULSE 58
--- NOTE | 2020-09-09 14:32 | HO.PM.IMPN ---
Subjective Subjective Date of Service: 09/09/20 Interval History: Tremor resolved Feels a little better GNRs growing in BCx Physical Exam Vital Signs: Vital Signs: Last Vital Signs Temp 97.0 F 09/09/20 07:35 Pulse 58 09/09/20 11:09 Resp 17 09/09/20 07:35 BP 144/70 H 09/09/20 07:35 Pulse Ox 96 09/09/20 07:35 Body Mass Index 19.5 Gen: in no acute distress HEENT: sclera anicteric, moist mucus membranes Neck: supple Lungs: clear to auscultation bilaterally Heart: irregularly irregular, no murmurs Abd: soft, non-tender, non-distended : no CVA tenderness Ext: no edema Skin: warm/well-perfused Neuro: alert and oriented x3, no focal findings Psych: appropriate affect Objective Data Current Medications Generic Name Dose Route Start Last Admin Trade Name Freq PRN Reason Stop Dose Admin Acetaminophen 650 mg 09/07/20 11:03 Acetaminophen 325 Mg Tablet PO Q6H PRN Pain, Mild (Pain Scale 1-3) Alprazolam 0.25 mg 09/07/20 10:45 09/08/20 15:53 Alprazolam 0.25 Mg Tablet PO 0.25 mg DAILY PRN Administration panic attack Amlodipine Besylate 10 mg 09/07/20 10:50 09/09/20 10:14 Amlodipine Besylate 10 Mg Tablet PO 10 mg DAILY LINDSAY Administration Protocol Apixaban 2.5 mg 09/07/20 10:50 09/09/20 10:15 Apixaban 2.5 Mg Tablet PO 2.5 mg BID LINDSAY Administration Calcium Carbonate/Cholecalciferol 500 mg 09/08/20 09:00 09/09/20 10:14 Calcium + Vitamin D 250 Mg Tablet PO 500 mg DAILY LINDSAY Administration Digoxin 0.125 mg 09/07/20 10:50 09/09/20 10:14 Digoxin 0.125 Mg Tablet PO 0.125 mg DAILY LINDSAY Administration Ceftriaxone Sodium 1 gm/ 50 mls @ 100 mls/hr 09/08/20 09:00 09/09/20 10:55 Sodium Chloride IV Infused Q24H LINDSAY Infusion Melatonin 6 mg 09/07/20 21:00 09/08/20 20:34 Melatonin 3 Mg Tablet PO 6 mg BEDTIME LINDSAY Administration Metoprolol Tartrate 100 mg 09/07/20 10:50 09/09/20 10:15 Metoprolol Tartrate 100 Mg Tablet PO Not Given BID COUNT INCLUDES THE [facility] Protocol Omeprazole 20 mg 09/07/20 10:50 09/09/20 10:14 Omeprazole 20 Mg Capsule.Dr PO 20 mg DAILY LINDSAY Administration Ondansetron HCl 4 mg 09/07/20 11:03 Ondansetron Hcl 4 Mg/2 Ml Vial IVPUSH Q8H PRN Nausea and Vomiting Pharmacy Consult 1 each 09/07/20 07:29 Consult Rx Perform Med Rec MISCELLANE ONCE PRN Consult order Sertraline HCl 100 mg 09/07/20 10:50 09/09/20 10:14 Sertraline Hcl 100 Mg Tablet PO 100 mg DAILY COUNT INCLUDES THE [facility] Administration Sertraline HCl 25 mg 09/07/20 10:50 09/09/20 10:14 Sertraline Hcl 25 Mg Tablet PO 25 mg DAILY COUNT INCLUDES THE [facility] Administration Sodium Chloride 3 ml 09/07/20 16:00 09/09/20 06:11 0.9 % Sodium Chloride Flush 3 Ml Syringe IVFLUSH 3 ml QSHIFT COUNT INCLUDES THE [facility] Administration Labs CBC & Chem 7: 09/08/20 06:30 09/09/20 06:03 Labs: Laboratory Results - last 24 hr 09/09/20 06:03 Sodium 143 Potassium 3.6 Chloride 108 Carbon Dioxide 25 Anion Gap 14 BUN 31 H Creatinine 0.85 Estim Creat Clear Calc 40.4 Estimated GFR > 60 Random Glucose 117 H Calcium 9.9 Impressions Brain MRI 09/08/20 20:05 IMPRESSION: No acute infarct, mass lesion, intracranial hemorrhage, or evidence of hydrocephalus. Small chronic lacunar infarcts seen in the basal ganglia and deep white matter. Background changes of mild chronic microangiopathy. Microbiology Microbiology Results: Microbiology 09/07/20 07:49 Blood Culture - Preliminary Blood - Venous No growth after 48 hours. 09/07/20 Unknown Urine Culture - Final Urine clean catch - Clean Catch Midstream Escherichia coli 09/07/20 07:51 Blood Culture - Preliminary Blood - Venous Prelim: GNR Gram Stain only Quality Stroke Does the patient have a stroke diagnosis?: No VTE Prior VTE?: No VTE Risk Level:: Medical - moderate - high VTE Device Contraindication: N/A - Device Ordered VTE Drug Contraindication: N/A - Med Ordered Assessment and Plan (1) UTI (urinary tract infection): Status: Acute (2) Toxic encephalopathy: Status: Acute Assessment and Plan: hospital d#3 79yo F with AF, chronic HFpEF, and HTN presenting with acute delusions associated with urinary urgency and dysuria, likely encephalopathy due to E coli UTI + possible bacteremia # UTI, E coli, foreman-sensitive - IV ceftriaxone d#3. follow BCx 1/2 positive for GNRs # toxic-metabolic encephalopathy - likely due to UTI + NATE, improving # tremor - neuro consulted, likely due to encephalopathy # troponin elevation - no acute EKG changes and no chest pain/pressure; likely due to NATE; repeat decreased # NATE - resolved after holding lisinopril + furosemide and giving 500 mL of NS; avoid nephrotoxins; recheck BMP in am # hypoK - repleted # HTN # chronic HFpEF - continue metoprolol + amlodipine; held lisinopril + furosemide as above # AF - continue metoprolol + apixaban # GERD - continue PPI # anxiety - continue sertraline, prn alprazolam, melatonin # VTE ppx - apixaban # dispo - anticipate home with VNA in next 1-2d
[2020-09-09 15:59] VITALS: BP 159/72; PULSE 86; RESP 16; TEMP 36.4; O2SAT 96
[2020-09-09 21:13] VITALS: BP 159/72; PULSE 86
[2020-09-09] MEDS: Melatonin 3 MG TABLET 6 MG PO (21:13)
[2020-09-09] MEDS: Metoprolol Tartrate 100 MG TABLET PO (21:13)
[2020-09-09 23:46] VITALS: BP 164/79; PULSE 58; RESP 16; TEMP 36.1; O2SAT 95
[2020-09-10 07:38] VITALS: BP 169/79; PULSE 65; RESP 16; TEMP 35.9; O2SAT 96
[2020-09-10] MEDS: 0.9 % Sodium Chloride Flush 3 ML SYRINGE IVFLUSH ×2 (09:54→16:57)
[2020-09-10] MEDS: cefTRIAXone sodium 1 GM in 0.9 % Sodium Chloride 50 ML IV (09:54)
[2020-09-10] MEDS: Calcium + Vitamin D 250 MG TABLET 500 MG PO (09:55)
[2020-09-10] MEDS: Omeprazole 20 MG CAPSULE.DR PO (09:55)
[2020-09-10] MEDS: Apixaban 2.5 MG TABLET PO ×2 (09:55→20:15)
[2020-09-10] MEDS: Metoprolol Tartrate 100 MG TABLET PO ×2 (09:55→20:15)
[2020-09-10] MEDS: Sertraline HCL 25 MG TABLET PO (09:55)
[2020-09-10] MEDS: amLODIPine Besylate 10 MG TABLET PO (09:55)
[2020-09-10] MEDS: Sertraline HCL 100 MG TABLET PO (09:55)
[2020-09-10] MEDS: Digoxin 0.125 MG TABLET PO (09:55)
--- NOTE | 2020-09-10 11:34 | HO.PM.IMPN ---
Subjective Subjective Date of Service: 09/10/20 Interval History: Feeling better; tremor resolved No fever/chills Physical Exam Vital Signs: Vital Signs: Last Vital Signs Temp 96.7 F L 09/10/20 07:38 Pulse 65 09/10/20 07:38 Resp 16 09/10/20 07:38 BP 169/79 H 09/10/20 07:38 Pulse Ox 96 09/10/20 07:38 Body Mass Index 19.5 Gen: in no acute distress HEENT: sclera anicteric, moist mucus membranes Neck: supple Lungs: clear to auscultation bilaterally Heart: irregularly irregular, no murmurs Abd: soft, non-tender, non-distended : no CVA tenderness Ext: no edema Skin: warm/well-perfused Neuro: alert and oriented x3, no focal findings Psych: appropriate affect Objective Data Current Medications Generic Name Dose Route Start Last Admin Trade Name Freq PRN Reason Stop Dose Admin Acetaminophen 650 mg 09/07/20 11:03 Acetaminophen 325 Mg Tablet PO Q6H PRN Pain, Mild (Pain Scale 1-3) Alprazolam 0.25 mg 09/07/20 10:45 09/08/20 15:53 Alprazolam 0.25 Mg Tablet PO 0.25 mg DAILY PRN Administration panic attack Amlodipine Besylate 10 mg 09/07/20 10:50 09/10/20 09:55 Amlodipine Besylate 10 Mg Tablet PO 10 mg DAILY LINDSAY Administration Protocol Apixaban 2.5 mg 09/07/20 10:50 09/10/20 09:55 Apixaban 2.5 Mg Tablet PO 2.5 mg BID LINDSAY Administration Calcium Carbonate/Cholecalciferol 500 mg 09/08/20 09:00 09/10/20 09:55 Calcium + Vitamin D 250 Mg Tablet PO 500 mg DAILY LINDSAY Administration Digoxin 0.125 mg 09/07/20 10:50 09/10/20 09:55 Digoxin 0.125 Mg Tablet PO 0.125 mg DAILY LINDSAY Administration Ceftriaxone Sodium 1 gm/ 50 mls @ 100 mls/hr 09/08/20 09:00 09/10/20 10:50 Sodium Chloride IV Infused Q24H LINDSAY Infusion Melatonin 6 mg 09/07/20 21:00 09/09/20 21:13 Melatonin 3 Mg Tablet PO 6 mg BEDTIME LINDSAY Administration Metoprolol Tartrate 100 mg 09/07/20 10:50 09/10/20 09:55 Metoprolol Tartrate 100 Mg Tablet PO 100 mg BID LINDSAY Administration Protocol Omeprazole 20 mg 09/07/20 10:50 09/10/20 09:55 Omeprazole 20 Mg Capsule.Dr PO 20 mg DAILY LINDSAY Administration Ondansetron HCl 4 mg 09/07/20 11:03 Ondansetron Hcl 4 Mg/2 Ml Vial IVPUSH Q8H PRN Nausea and Vomiting Pharmacy Consult 1 each 09/07/20 07:29 Consult Rx Perform Med Rec MISCELLANE ONCE PRN Consult order Sertraline HCl 100 mg 09/07/20 10:50 09/10/20 09:55 Sertraline Hcl 100 Mg Tablet PO 100 mg DAILY LINDSAY Administration Sertraline HCl 25 mg 09/07/20 10:50 09/10/20 09:55 Sertraline Hcl 25 Mg Tablet PO 25 mg DAILY LINDSAY Administration Sodium Chloride 3 ml 09/07/20 16:00 09/10/20 09:54 0.9 % Sodium Chloride Flush 3 Ml Syringe IVFLUSH 3 ml QSHIFT LINDSAY Administration Labs CBC & Chem 7: 09/08/20 06:30 09/09/20 06:03 Microbiology Microbiology Results: Microbiology 09/07/20 07:51 Blood Culture - Preliminary Blood - Venous Gram negative jaelyn 09/07/20 07:49 Blood Culture - Preliminary Blood - Venous No growth after 48 hours. 09/07/20 Unknown Urine Culture - Final Urine clean catch - Clean Catch Midstream Escherichia coli Quality Stroke Does the patient have a stroke diagnosis?: No VTE Prior VTE?: No VTE Risk Level:: Medical - moderate - high VTE Device Contraindication: N/A - Device Ordered VTE Drug Contraindication: N/A - Med Ordered Assessment and Plan (1) UTI (urinary tract infection): Status: Acute (2) Toxic encephalopathy: Status: Acute Assessment and Plan: hospital d#4 79yo F with AF, chronic HFpEF, and HTN presenting with acute delusions associated with urinary urgency and dysuria, likely encephalopathy due to E coli UTI + possible bacteremia # UTI, E coli, foreman-sensitive - IV ceftriaxone d#4. follow BCx [1/2 positive for GNRs- per Micro speciation back tomorrow] # toxic-metabolic encephalopathy - likely due to UTI + NATE, improved # tremor - neuro consulted, likely due to encephalopathy, has resolved; MRI no acute disease, EEG pending # troponin elevation - no acute EKG changes and no chest pain/pressure; likely due to NATE; repeat decreased # NTAE - resolved after holding lisinopril + furosemide and giving 500 mL of NS; resume lisinopril today; recheck BMP in am # hypoK - repleted # HTN # chronic HFpEF - continue metoprolol + amlodipine; will resume lisinopril at lower dosing of 10 mg daily # AF - continue metoprolol + apixaban # GERD - continue PPI # anxiety - continue sertraline, prn alprazolam, melatonin # VTE ppx - apixaban # dispo - anticipate home with VNA probably tomorrow
[2020-09-10] MEDS: iohexoL 350 MG/ML 100 ML INFUS..BTL IV (13:41)
[2020-09-10] MEDS: lisinopriL 10 MG TABLET PO (14:08)
[2020-09-10 15:20] VITALS: BP 142/75; PULSE 70; RESP 16; TEMP 35.9; O2SAT 96
[2020-09-10 20:15] VITALS: BP 142/75; PULSE 70
[2020-09-10] MEDS: ALPRAZolam 0.25 MG TABLET PO (20:15)
[2020-09-10] MEDS: Melatonin 3 MG TABLET 6 MG PO (20:16)
[2020-09-10 23:36] VITALS: BP 152/72; PULSE 58; RESP 16; TEMP 36.2; O2SAT 96
[2020-09-11] MEDS: 0.9 % Sodium Chloride Flush 3 ML SYRINGE IVFLUSH ×3 (01:02→16:05)
[2020-09-11 06:31] LABS: Hematocrit 38.4 % (37-47); Hemoglobin 12.9 g/dl (12.0-16.0); Mean Corpuscular HGB Conc 33.6 g/dl (31.0-35.0); Mean Corpuscular Hemoglobin 29.7 pg (27.0-33.0); Mean Corpuscular Volume 88.3 fL (80-98); Mean Platelet Volume 11.5 fL (9.4-12.3); Platelet Count 252 X10*3/uL (160-400); Red Blood Count 4.35 X10*6/uL (4.20-5.50); Red Cell Distribution Width 14.3 % (11.0-16.0); White Blood Count 8.5 X10*3/uL (4.8-10.8)
[2020-09-11 06:57] LABS: Anion Gap 15 (12-20); Blood Urea Nitrogen 20 mg/dL (9-16); Calcium 9.7 mg/dL (8.4-10.2); Carbon Dioxide 25 mmol/L (22-29); Chloride 107 mmol/L (96-108); Creatinine Clr Calc Pharmacy 42.9; Estimated Glomerular Filt Rate > 60; Glucose Random 101 mg/dL (60-115); Potassium 3.6 mmol/L (3.3-5.1); Sodium 143 mmol/L (135-145)
[2020-09-11 08:00] VITALS: BP 151/69; PULSE 71; RESP 18; TEMP 37; O2SAT 95
[2020-09-11] MEDS: Apixaban 2.5 MG TABLET PO ×2 (08:42→20:31)
[2020-09-11] MEDS: Omeprazole 20 MG CAPSULE.DR PO (08:42)
[2020-09-11] MEDS: Metoprolol Tartrate 100 MG TABLET PO ×2 (08:42→20:32)
[2020-09-11] MEDS: Sertraline HCL 25 MG TABLET PO (08:42)
[2020-09-11] MEDS: lisinopriL 10 MG TABLET PO (08:42)
[2020-09-11] MEDS: Digoxin 0.125 MG TABLET PO (08:42)
[2020-09-11] MEDS: amLODIPine Besylate 10 MG TABLET PO (08:42)
[2020-09-11] MEDS: Sertraline HCL 100 MG TABLET PO (08:42)
[2020-09-11] MEDS: cefTRIAXone sodium 1 GM in 0.9 % Sodium Chloride 50 ML IV (08:43)
[2020-09-11] MEDS: Calcium + Vitamin D 250 MG TABLET 500 MG PO (08:43)
[2020-09-11] MEDS: ALPRAZolam 0.25 MG TABLET PO (09:36)
--- NOTE | 2020-09-11 10:26 | HO.PM.IMPN ---
Subjective Subjective Date of Service: 09/11/20 Interval History: urinary symptoms resolved tremor resolved very anxious Physical Exam Vital Signs: Vital Signs: Last Vital Signs Temp 98.6 F 09/11/20 08:00 Pulse 71 09/11/20 08:00 Resp 18 09/11/20 08:00 BP 151/69 H 09/11/20 08:00 Pulse Ox 95 09/11/20 08:00 Body Mass Index 19.5 Gen: in no acute distress HEENT: sclera anicteric, moist mucus membranes Neck: supple Lungs: clear to auscultation bilaterally Heart: irregularly irregular, no murmurs Abd: soft, non-tender, non-distended : no CVA tenderness Ext: no edema Skin: warm/well-perfused Neuro: alert and oriented x3, no focal findings Psych: appropriate affect Objective Data Current Medications Generic Name Dose Route Start Last Admin Trade Name Freq PRN Reason Stop Dose Admin Acetaminophen 650 mg 09/07/20 11:03 Acetaminophen 325 Mg Tablet PO Q6H PRN Pain, Mild (Pain Scale 1-3) Alprazolam 0.25 mg 09/07/20 10:45 09/10/20 20:15 Alprazolam 0.25 Mg Tablet PO 0.25 mg DAILY PRN Administration panic attack Amlodipine Besylate 10 mg 09/07/20 10:50 09/11/20 08:42 Amlodipine Besylate 10 Mg Tablet PO 10 mg DAILY LINDSAY Administration Protocol Apixaban 2.5 mg 09/07/20 10:50 09/11/20 08:42 Apixaban 2.5 Mg Tablet PO 2.5 mg BID LINDSAY Administration Calcium Carbonate/Cholecalciferol 500 mg 09/08/20 09:00 09/11/20 08:43 Calcium + Vitamin D 250 Mg Tablet PO 500 mg DAILY LINDSAY Administration Digoxin 0.125 mg 09/07/20 10:50 09/11/20 08:42 Digoxin 0.125 Mg Tablet PO 0.125 mg DAILY LINDSAY Administration Ceftriaxone Sodium 1 gm/ 50 mls @ 100 mls/hr 09/08/20 09:00 09/11/20 09:32 Sodium Chloride IV Infused Q24H LINDSAY Infusion Lisinopril 10 mg 09/10/20 11:40 09/11/20 08:42 Lisinopril 10 Mg Tablet PO 10 mg DAILY LINDSAY Administration Protocol Melatonin 6 mg 09/07/20 21:00 09/10/20 20:16 Melatonin 3 Mg Tablet PO 6 mg BEDTIME LINDSAY Administration Metoprolol Tartrate 100 mg 09/07/20 10:50 09/11/20 08:42 Metoprolol Tartrate 100 Mg Tablet PO 100 mg BID LINDSAY Administration Protocol Omeprazole 20 mg 09/07/20 10:50 09/11/20 08:42 Omeprazole 20 Mg Capsule.Dr PO 20 mg DAILY LINDSAY Administration Ondansetron HCl 4 mg 09/07/20 11:03 Ondansetron Hcl 4 Mg/2 Ml Vial IVPUSH Q8H PRN Nausea and Vomiting Pharmacy Consult 1 each 09/07/20 07:29 Consult Rx Perform Med Rec MISCELLANE ONCE PRN Consult order Sertraline HCl 100 mg 09/07/20 10:50 09/11/20 08:42 Sertraline Hcl 100 Mg Tablet PO 100 mg DAILY LINDSAY Administration Sertraline HCl 25 mg 09/07/20 10:50 09/11/20 08:42 Sertraline Hcl 25 Mg Tablet PO 25 mg DAILY LINDSAY Administration Sodium Chloride 3 ml 09/07/20 16:00 09/11/20 08:43 0.9 % Sodium Chloride Flush 3 Ml Syringe IVFLUSH 3 ml QSHIFT LINDSAY Administration Labs CBC & Chem 7: 09/11/20 05:51 09/11/20 05:51 Labs: Laboratory Results - last 24 hr 09/11/20 09/11/20 05:51 05:51 WBC 8.5 RBC 4.35 Hgb 12.9 Hct 38.4 MCV 88.3 MCH 29.7 MCHC 33.6 RDW 14.3 Plt Count 252 MPV 11.5 Absolute Nucleated RBC 0.000 Nucleated RBC % (auto) 0.0 Sodium 143 Potassium 3.6 Chloride 107 Carbon Dioxide 25 Anion Gap 15 BUN 20 H Creatinine 0.80 Estim Creat Clear Calc 42.9 Estimated GFR > 60 Random Glucose 101 Calcium 9.7 Microbiology Microbiology Results: Microbiology 09/07/20 07:51 Blood Culture - Preliminary Blood - Venous Gram negative jaelyn Quality Stroke Does the patient have a stroke diagnosis?: No VTE Prior VTE?: No VTE Risk Level:: Medical - moderate - high VTE Device Contraindication: N/A - Device Ordered VTE Drug Contraindication: N/A - Med Ordered Assessment and Plan (1) UTI (urinary tract infection): Status: Acute (2) Toxic encephalopathy: Status: Acute Assessment and Plan: hospital d#5 79yo F with AF, chronic HFpEF, and HTN presenting with acute delusions associated with urinary urgency and dysuria, likely encephalopathy due to E coli UTI + possible bacteremia # UTI, E coli, foreman-sensitive - IV ceftriaxone d#5. 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 no evidence of mets on MRI brain or CT A/P. give dietary supplements and to consider appetite stimulant # HTN # chronic HFpEF - continue metoprolol + amlodipine; increase lisinopril from 10 to 20 mg/d [home dose if 40 mg] # AF - continue metoprolol + apixaban # GERD - continue PPI # anxiety - continue sertraline, prn alprazolam, melatonin # VTE ppx - apixaban # dispo - anticipate home with VNA probably tomorrow once BCx returns
[2020-09-11 15:28] VITALS: BP 144/66; PULSE 64; RESP 16; TEMP 36.4; O2SAT 95
[2020-09-11 20:32] VITALS: BP 144/66; PULSE 64
[2020-09-11] MEDS: Melatonin 3 MG TABLET 6 MG PO (20:32)
[2020-09-11 23:06] VITALS: PULSE 72; RESP 18; TEMP 36.1; O2SAT 96
[2020-09-12] MEDS: 0.9 % Sodium Chloride Flush 3 ML SYRINGE IVFLUSH ×2 (00:24→09:39)
[2020-09-12 02:10] VITALS: BP 165/90
[2020-09-12 07:02] VITALS: BP 142/90; PULSE 69; RESP 19; TEMP 36.1; O2SAT 96
[2020-09-12] MEDS: cefTRIAXone sodium 1 GM in 0.9 % Sodium Chloride 50 ML IV (09:38)
[2020-09-12] MEDS: Metoprolol Tartrate 100 MG TABLET PO (09:39)
[2020-09-12] MEDS: Calcium + Vitamin D 250 MG TABLET 500 MG PO (09:39)
[2020-09-12] MEDS: amLODIPine Besylate 10 MG TABLET PO (09:40)
[2020-09-12] MEDS: Omeprazole 20 MG CAPSULE.DR PO (09:40)
[2020-09-12] MEDS: Sertraline HCL 25 MG TABLET PO (09:40)
[2020-09-12] MEDS: lisinopriL 20 MG TABLET PO (09:40)
[2020-09-12] MEDS: Apixaban 2.5 MG TABLET PO (09:40)
[2020-09-12] MEDS: Sertraline HCL 100 MG TABLET PO (09:40)
[2020-09-12] MEDS: Digoxin 0.125 MG TABLET PO (09:40)
[2020-09-12 11:25] VITALS: BP 158/90; PULSE 71; RESP 20; TEMP 36.6; O2SAT 96
[2020-09-12 12:06] VITALS: BP 158/90; PULSE 71; O2SAT 96
--- NOTE | 2020-09-12 15:30 | MHC.CM.PN ---
PT CLEARED FOR DC HOME TODAY WITH [facility]NA. CM SPOKE TO PT AND HER WHO WAS PRESENT IN ROOM. THEY ARE AWARE OF DC AND THAT [facility] WILL CONTACT THEM DIRECTLY TO SET UP A TIME TO SEE THE PT AT HOME. PT WILL DC HOME TODAY WITH [facility] TO TRANSPORT
[2020-09-12 15:34] VITALS: BP 164/77; PULSE 75; RESP 20; TEMP 36; O2SAT 94
--- NOTE | 2020-09-12 15:43 | W.MHC.F2F ---
Service Date Service Date: 09/12/20 Encounter Date of encounter: 09/12/20 Encounter: UTI/E coli bacteremia, NATE. Reasons for Services Overseeing Care: Lazara Oneill Homebound: Leaving the home is medically contraindicated at this time without the asist of a device and/or another person due th the listed conditions above and below. Homebound supporting statement: Patient is generally weak has UTI/also E coli bacteremia on antibiotics, also need electrolyte and renal function monitoring due to recent NATE. Needs help with appointments. Certification: Based on the above findings, I certify that this patient is confined to the home and needs intermittent [facility] care, physical therapy and/or speech therapy, or continues to need occupational therapy. The patient is under my care, and I have initiated the establishment of the plan of care. The patient will be followed by a physician who will periodically review the plan of care.
--- NOTE | 2020-09-12 15:45 | P.DS_ITS ---
DS: Providers Provider Date of Service: 09/12/20 Date of admission: 09/07/20 10:50 Primary care physician: Lazara Oneill MD Consults: 09/08/20 14:55 Consult to Neurology Routine Consulting Provider: [facility] Reason for consultation: tremor of head and neck, started today 09/12/20 07:45 Consult to Infectious Diseases Routine Consulting Provider: Mary Navarro Reason for consultation: uti/bacteremia Has provider been notified: No DS: Diagnosis Discharge Diagnosis (1) E coli bacteremia: Status: Acute (2) UTI (urinary tract infection): Status: Acute (3) Toxic encephalopathy: Status: Acute DS: Medications Discharge Medications Home Medications: Home Medications Medication Instructions Recorded Confirmed omeprazole 1 cap PO DAILY 02/26/20 09/07/20 sertraline [Zoloft] 25 mg PO DAILY 02/26/20 09/07/20 amlodipine 10 mg tablet 10 mg PO DAILY 03/16/20 09/07/20 alprazolam 1 tab PO DAILY PRN 09/07/20 09/07/20 calcium carbonate-vitamin D3 1 tab PO DAILY 09/07/20 09/07/20 [Caltrate with Vitamin D3] diphenhydramine HCl [Benadryl] 25 mg PO BEDTIME 09/07/20 09/07/20 lisinopril 1 tab PO DAILY 09/07/20 09/07/20 melatonin 5 mg PO BEDTIME 09/07/20 09/07/20 sertraline 1 tab PO DAILY 09/07/20 09/07/20 Previous Rx's Medication Instructions Recorded metoprolol tartrate 100 mg tablet 100 mg PO BID 30 Days #60 tab 03/31/20 digoxin 125 mcg (0.125 mg) tablet 125 mcg PO DAILY #90 tab 04/26/20 apixaban 2.5 mg tablet 2.5 mg PO BID 30 Days #60 tab 05/13/20 furosemide 20 mg tablet 20 mg PO QAM #90 tab 05/25/20 DS: Summary Hospital Course Hospital Course: 79 year-old woman with past medical history of atrial fibrillation anticoagulated with apixaban, diastolic heart failure, hypertension, and anxiety who was brought into the ED by her daughter due to confusion and delusions that started yesterday, along with malaise. The patient is fully oriented but apparently thinks other people are out to get her ; but she also is aware that these thoughts are delusional. She does endorse urinary urgency and dysuria, and per her daughter, has had similar episodes of confusion associated with past UTIs. She denies fever, chills, nausea, vomiting, abdominal pain, flank pain, or hematuria. She denies cough, dyspnea, pain, chest pressure, or edema. She lives at home with her and her daughter comes over daily to help her with meal preparation and dressing. She uses a walker for ambulation. In the ED, she was noted to have mild leucocytosis with WBC of 11.2; acute kidney injury with SCr of 1.56 (baseline around 0.9-1); hypokalemia with K of 3; and hs-Tn-I elevation to 17.9. EKG showed AF with incomplete RBBB, LAFB, and inferior T wave flattening and lateral T wave inversions present on prior EKG on 06/20/20. Hospital Course problem pelayo section: Patient came to the hospital due to toxic encephalopathies/UTI/NATE, In addition patient was found to have elevated troponins as well as hypokalemia. Subsequently patient was started on IV ceftriaxone, and urine culture as well as blood cultures sent. Patient UTI seems to be improved, asymptomatic, urine culture and blood culture 1/2 grew E coli-pansensitive. Patient was seen by infectious disease and subsequently switched to p.o. Ceftin upon discharge for 9 more days. She already received ceftriaxone for 5 days. NATE pelayo patient received 500 mL normal saline in addition furosemide and lisinopril was on hold initially-with these measures NATE improved, patient was subsequently switched to p.o. lisinopril 10 mg which can be adjusted further does pelayo after repeating BMP with PCP, also furosemide was put on hold for 2 days -please repeat renal function and electrolyte with PCP and furosemide can be started after that. Hypokalemia repleted and resolved. toxic encephalopathy- likely due to UTI, treat as above, seems to be improved to baseline. troponin elevation- no acute EKG changes and no chest pain/pressure; likely due to NATE. Further workup outpatient as per PCP. 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 no evidence of mets on MRI brain or CT A/P. Advised to use give dietary supplements and to consider appetite stimulant outpatient. tremor - neuro consulted, likely due to encephalopathy, has resolved; MRI no acute disease, EEG pending, follow-up with Neurology out patiently. Patient is to follow-up with CBC and BMP outpatient with PCP in a week and also Neurology out patiently please see above. Above management discussed with the patient and her in detail length both understand and in agreement with the above plan, time spent 50 minutes and 50% time spent on counseling. Significant findings: As above. Procedures performed: None. Treatment and response: As above. Complications: None. Time Spent with Patient Time attestation: Total time spent providing and/or coordinating discharge services: Discharge coordination time: Greater than 30 minutes Quality: Stroke Does the patient have a stroke diagnosis?: No Physical Exam Vital Signs: Vital Signs: Last Vital Signs Temp 96.8 F 09/12/20 15:34 Pulse 75 09/12/20 15:34 Resp 20 09/12/20 15:34 BP 164/77 H 09/12/20 15:34 Pulse Ox 94 09/12/20 15:34 Body Mass Index 19.5 Gen: in no acute distress HEENT: sclera anicteric, moist mucus membranes Neck: supple Lungs: clear to auscultation bilaterally Heart: irregularly irregular, no murmurs Abd: soft, non-tender, non-distended : no CVA tenderness Ext: no edema Skin: warm/well-perfused Neuro: alert and oriented x3, no focal findings Psych: appropriate affect DS: Data Data Completed and Pending Labs on day of discharge: Preliminary micro results at discharge 09/07/20 07:51 Blood Culture - Preliminary Blood - Venous Gram negative jaelyn Discharge Plan Discharge Patient Disposition: Home Health Service Discharge Diagnosis: uti, ecoli bactermia Referrals: Ket[facility] [Outside] - 1 Week Lazara Oneill MD [Primary Care Provider] - 1 Week Discharge Medications: New lisinopril 20 mg Tablet 20 mg PO DAILY Qty: 30 RF: 0 Continued metoprolol tartrate 100 mg tablet 100 mg PO BID 30 Days Qty: 60 RF: 5 digoxin 125 mcg (0.125 mg) tablet 125 mcg PO DAILY Qty: 90 RF: 1 Eliquis 2.5 mg tablet 2.5 mg PO BID 30 Days Qty: 60 RF: 5 sertraline [Zoloft] 25 mg tablet 25 mg PO DAILY RF: 0 omeprazole 20 mg capsule,delayed release(DR/EC) 1 cap PO DAILY RF: 0 sertraline 100 mg tablet 1 tab PO DAILY RF: 0 alprazolam 0.25 mg tablet 1 tab PO DAILY PRN (Reason: panic attack) RF: 0 diphenhydramine HCl [Benadryl] 25 mg Capsule 25 mg PO BEDTIME RF: 0 melatonin 5 mg Tablet 5 mg PO BEDTIME RF: 0 calcium carbonate-vitamin D3 [Caltrate with Vitamin D3] 600 mg(1,500mg) -800 unit Tablet 1 tab PO DAILY RF: 0 amlodipine 10 mg tablet 10 mg PO DAILY RF: 0 Held furosemide [Lasix] 20 mg tablet 20 mg PO QAM Qty: 90 RF: 1 Hold Instructions: Resume on 09/14/20. Discontinued lisinopril 40 mg tablet 1 tab PO DAILY RF: 0 Discharge Orders: Discharge Order (Routine); Ordered 09/12/20 Ordered By: Lois Singleton Diet: low fat, low cholesterol and low salt diet Activity on Discharge: As tolerated Stand Alone Forms: Patient Portal Discharge page Care Plan Goals: 79yo F with AF, chronic HFpEF, and HTN presenting with acute delusions associated with urinary urgency and dysuria, likely encephalopathy due to E coli UTI + possible bacteremia- Patient was started on IV antibiotics for, blood culture came positive 1/2: Subsequently patient was seen by infectious disease and patient going home with p.o. antibiotics further management outpatient as per PCP. Acute kidney injury: Which is improved after holding on lisinopril and Lasix- subsequently lisinopril low-dose started, monitor renal function and electrolyte with PCP also will hold off on Lasix for now for 2 days and the check renal function and electrolytes with PCP and further management and use of Lasix outpatient as per PCP. Health Concerns: As above. Plan of Treatment: As above. Assessment: As above.
--- NOTE | 2020-09-12 16:02 | W.PM.IDCN ---
History of Present Illness Data of Consult Service Date: 09/12/20 Requesting physician: Lois Singleton Primary Care Provider: Lazara Oneill MD HPI Reason for consult: bacteremia,UTI She presents to hospital with fatigue and lethargy She has dysuria for three days She has E coli UTI She feels better and wants to leave Review of Systems Review of Systems: Yes all other systems are reviewed and are negative [facility] Past Medical History Medical History Anxiety Atrial fibrillation with controlled ventricular rate Depression Diastolic heart failure GERD (gastroesophageal reflux disease) History of rib fracture HTN (hypertension) Ocular melanoma Functional capacity: uses cane/walker Social History Social History Household Members: Spouse Housing: House Do you presently have visiting nurse or other home services: No Alcohol intake: never Patient Tobacco Use Status: Never used Tobacco Second Hand Smoke Exposure: No Advance Directives Date on File: 09/07/20 service: No Current occupational status: retired [employer] Allergies Allergy/AdvReac Type Severity Reaction Status Date / Time No Known Allergies Allergy Verified 06/29/20 13:02 Active Medications: Current Medications Generic Name Dose Route Start Last Admin Trade Name Freq PRN Reason Stop Dose Admin Acetaminophen 650 mg 09/07/20 11:03 Acetaminophen 325 Mg Tablet PO Q6H PRN Pain, Mild (Pain Scale 1-3) Alprazolam 0.25 mg 09/07/20 10:45 09/10/20 20:15 Alprazolam 0.25 Mg Tablet PO 0.25 mg DAILY PRN Administration panic attack Amlodipine Besylate 10 mg 09/07/20 10:50 09/12/20 09:40 Amlodipine Besylate 10 Mg Tablet PO 10 mg DAILY LINDSAY Administration Protocol Apixaban 2.5 mg 09/07/20 10:50 09/12/20 09:40 Apixaban 2.5 Mg Tablet PO 2.5 mg BID LINDSAY Administration Calcium Carbonate/Cholecalciferol 500 mg 09/08/20 09:00 09/12/20 09:39 Calcium + Vitamin D 250 Mg Tablet PO 500 mg DAILY LINDSAY Administration Digoxin 0.125 mg 09/07/20 10:50 09/12/20 09:40 Digoxin 0.125 Mg Tablet PO 0.125 mg DAILY LINDSAY Administration Ceftriaxone Sodium 1 gm/ 50 mls @ 100 mls/hr 09/08/20 09:00 09/12/20 10:52 Sodium Chloride IV Infused Q24H LINDSAY Infusion Lisinopril 20 mg 09/12/20 09:00 09/12/20 09:40 Lisinopril 20 Mg Tablet PO 20 mg DAILY LINDSAY Administration Protocol Melatonin 6 mg 09/07/20 21:00 09/11/20 20:32 Melatonin 3 Mg Tablet PO 6 mg BEDTIME LINDSAY Administration Metoprolol Tartrate 100 mg 09/07/20 10:50 09/12/20 09:39 Metoprolol Tartrate 100 Mg Tablet PO 100 mg BID LINDSAY Administration Protocol Omeprazole 20 mg 09/07/20 10:50 09/12/20 09:40 Omeprazole 20 Mg Capsule.Dr PO 20 mg DAILY LINDSAY Administration Ondansetron HCl 4 mg 09/07/20 11:03 Ondansetron Hcl 4 Mg/2 Ml Vial IVPUSH Q8H PRN Nausea and Vomiting Pharmacy Consult 1 each 09/07/20 07:29 Consult Rx Perform Med Rec MISCELLANE ONCE PRN Consult order Sertraline HCl 100 mg 09/07/20 10:50 09/12/20 09:40 Sertraline Hcl 100 Mg Tablet PO 100 mg DAILY LINDSAY Administration Sertraline HCl 25 mg 09/07/20 10:50 09/12/20 09:40 Sertraline Hcl 25 Mg Tablet PO 25 mg DAILY LINDSAY Administration Sodium Chloride 3 ml 09/07/20 16:00 09/12/20 09:39 0.9 % Sodium Chloride Flush 3 Ml Syringe IVFLUSH 3 ml QSHIFT LINDSAY Administration Home Medications Medication Instructions Recorded Confirmed Last Taken Type omeprazole 1 cap PO DAILY 02/26/20 09/07/20 09/06/20 History sertraline [Zoloft] 25 mg PO DAILY 02/26/20 09/07/20 09/06/20 History amlodipine 10 mg tablet 10 mg PO DAILY 03/16/20 09/07/20 09/06/20 History alprazolam 1 tab PO DAILY PRN 09/07/20 09/07/20 Unknown History calcium carbonate-vitamin D3 1 tab PO DAILY 09/07/20 09/07/20 09/06/20 History [Caltrate with Vitamin D3] diphenhydramine HCl [Benadryl] 25 mg PO BEDTIME 09/07/20 09/07/20 09/06/20 History melatonin 5 mg PO BEDTIME 09/07/20 09/07/20 09/06/20 History sertraline 1 tab PO DAILY 09/07/20 09/07/20 09/06/20 History Physical Exam Vital Signs: Vital Signs: Last Vital Signs Temp 96.8 F 09/12/20 15:34 Pulse 75 09/12/20 15:34 Resp 20 09/12/20 15:34 BP 164/77 H 09/12/20 15:34 Pulse Ox 94 09/12/20 15:34 Body Mass Index 19.5 Const: General: cooperative HENMT: Head: Yes normal to inspection Mouth: Normal oral and palatal mucosa present Eyes: General: appearance normal, both eyes and all related structures Resp: Effort & Inspection: normal respiratory effort Cardio: Rate: regular rate Rhythm: regular rhythm GI: Palpation (GI): Soft to palpation and nontender Skin: General skin exam: no rashes or lesions noted Extrem: General: Yes normal to inspection Results Labs CBC & Chem 7: 09/11/20 05:51 09/11/20 05:51 Microbiology Microbiology Results: Microbiology 09/07/20 07:49 Blood - Venous Blood Culture - Final No growth after 5 days. 09/07/20 07:51 Blood - Venous Blood Culture - Preliminary Gram negative jaelyn 09/07/20 Unknown Urine clean catch - Clean Catch Midstream Urine Culture - Final Escherichia coli Assessment and Plan (1) E coli bacteremia: Status: Acute She has UTI with bacteremia and no signs of lumbar spine infection or endocarditis Suggest 9 more days of po Ceftin 500 mg bid (2) UTI (urinary tract infection): Status: Acute
== END 2020-09-12 16:40 | disposition home health service (06) | DRG 689 ==
LOC: HO.ED 09:00 → HO.EDOVER 11:34 → HO.S3 18:57
PROVIDERS: Admitting Provider Family Medicine; Emergency Provider Emergency Medicine; PCP Internal Medicine; Visit Provider Internal Medicine
DX: N39.0 Urinary tract infection, site not specified (principal); G92 Toxic encephalopathy; N17.9 Acute kidney failure, unspecified; I50.32 Chronic diastolic (congestive) heart failure; R78.81 Bacteremia; B96.20 Unspecified Escherichia coli [E. coli] as the cause of diseases classified elsewhere; I48.91 Unspecified atrial fibrillation; K21.9 Gastro-esophageal reflux disease without esophagitis; F41.9 Anxiety disorder, unspecified; E87.6 Hypokalemia; Z20.822 Contact with and (suspected) exposure to COVID-19; Z79.01 Long term (current) use of anticoagulants; Z79.899 Other long term (current) drug therapy; I11.0 Hypertensive heart disease with heart failure
CPT/HCPCS: 36415; 70450; 70551; 71045; 74177; 80048; 80076; 80162; 81001; 81003; 83605; 83690; 83735; 84443; 84484; 85025; 85027; 85610; 85730; 87040; 87086; 87088; 87186; 87205; 87635; 93005; 95816; 97110; 97116; 97161; 99284; J0696; Q9967

== ENCOUNTER 2020-09-19 16:29 | Outpatient (REF) | payer MEDICARE, OTHER, SELFPAY ==
[2020-09-19 17:07] LABS: Anion Gap 16 (12-20); Blood Urea Nitrogen 18 mg/dL (9-16); Calcium 9.2 mg/dL (8.4-10.2); Carbon Dioxide 23 mmol/L (22-29); Chloride 104 mmol/L (96-108); Estimated Glomerular Filt Rate > 60; Glucose Random 141 mg/dL (60-115); Potassium 3.5 mmol/L (3.3-5.1); Sodium 139 mmol/L (135-145)
== END 2020-09-19 16:30 | disposition home or self-care (01) ==
LOC: HO.HVNA 16:29
PROVIDERS: Visit Provider Internal Medicine
DX: N39.0 Urinary tract infection, site not specified (principal); R78.81 Bacteremia; N17.9 Acute kidney failure, unspecified
CPT/HCPCS: 36415; 80048

== ENCOUNTER 2020-10-05 15:29 | Outpatient (REF) | payer MEDICARE, OTHER, SELFPAY ==
[2020-10-05 15:37] LABS: Appearance Urine HAZY; Color Urine YELLOW; Glucose Urine UA NEG (NEG); Leukocyte Esterase Urine 1+ (NEG); Nitrite Urine NEG (NEG); Urine Blood NEG (NEG); Urine Ketones 5 MG/DL (NEG); Urine Protein TRACE MG/DL (NEG-TRACE)
[2020-10-05 15:48] LABS: Bacteria Urine 1+ /LPF; RBC Urine 0 /HPF (0); Squamous Epithelial Cell Urine 1+ /LPF; WBC Urine 0-2 /HPF (0-4)
== END 2020-10-05 15:30 | disposition home or self-care (01) ==
LOC: HO.HVNA 15:29
PROVIDERS: Visit Provider Internal Medicine
DX: N39.0 Urinary tract infection, site not specified (principal)
CPT/HCPCS: 81001

== ENCOUNTER 2020-10-18 22:40 | Emergency (ER) | payer MEDICARE, OTHER, SELFPAY ==
--- NOTE | ~2020-10-18 | XR_ITS ---
EXAMINATION: XR CHEST CLINICAL INFORMATION: Pain in sternum. Fall. COMPARISON: Chest x-ray September 07, 2020 TECHNIQUE: Frontal portable view of the chest was obtained. 11:28 PM FINDINGS: Multiple old healed right lateral rib fractures unchanged since chest x-ray September 07, 2020. No acute displaced fracture. Normal aeration of lungs. There is no pleural effusion or pneumothorax. Heart size is normal. Cardiac mediastinal contours are normal. Sternum is not assessed well on a portable AP chest radiograph. Dedicated sternal views recommended for follow-up if clinically warranted. XR/XR chest 1V IMPRESSION: No acute abnormality of chest.
[2020-10-18 22:46] VITALS: BP 135/80; PULSE 70; O2SAT 98; BMI 21.7
[2020-10-18 22:50] VITALS: BP 140/89; PULSE 86; RESP 18; TEMP 36.6; O2SAT 95
--- NOTE | 2020-10-18 23:30 | ED_ITS ---
HPI - Fall General Chief Complaint: Fall Stated Complaint: CHEST WALL PAIN DUE TO FALL Time Seen by Provider: 10/18/20 23:20 Source: patient Mode of arrival: ambulatory Limitations: no limitations History of Present Illness HPI Narrative: Patient comes emergency room complaining of a fall. Patient states that she had a mechanical fall, the lights were off in her bedroom, patient tripped, fell forward, hit her chest on a chair while she was falling. Patient complaining of pain over the sternum where she had the chair. Patient states she did not hit her head, did not lose consciousness. Denies headache or neck pain. Patient is on Eliquis . Patient states she was able to get up and walk. Patient denies pain in her extremities or hips. Related Data Home Medications Medication Instructions Recorded Confirmed omeprazole 20 mg capsule,delayed 1 cap PO DAILY 02/26/20 09/07/20 release sertraline 25 mg tablet (Zoloft) 25 mg PO DAILY 02/26/20 09/07/20 amlodipine 10 mg tablet 10 mg PO DAILY 03/16/20 09/07/20 alprazolam 0.25 mg tablet 1 tab PO DAILY PRN 09/07/20 09/07/20 calcium carbonate-vitamin D3 600 1 tab PO DAILY 09/07/20 09/07/20 mg (1,500 mg)-800 unit tablet (Caltrate with Vitamin D3) diphenhydramine HCl 25 mg capsule 25 mg PO BEDTIME 09/07/20 09/07/20 (Benadryl) melatonin 5 mg tablet 5 mg PO BEDTIME 09/07/20 09/07/20 sertraline 100 mg tablet 1 tab PO DAILY 09/07/20 09/07/20 Previous Rx's Medication Instructions Recorded digoxin 125 mcg (0.125 mg) tablet 125 mcg PO DAILY #90 tab 04/26/20 apixaban 2.5 mg tablet (Eliquis) 2.5 mg PO BID 30 Days #60 tab 05/13/20 furosemide 20 mg tablet (Lasix) 20 mg PO QAM #90 tab 05/25/20 cefuroxime axetil 500 mg tablet 500 mg PO BID #18 tab 09/12/20 lisinopril 20 mg tablet 20 mg PO DAILY #30 tab 09/12/20 metoprolol tartrate 100 mg tablet 100 mg PO BID 90 Days #180 tab 09/22/20 tramadol 50 mg tablet 50 mg PO TID PRN #7 tab 10/19/20 Allergies Allergy/AdvReac Type Severity Reaction Status Date / Time No Known Allergies Allergy Verified 06/29/20 13:02 Review of Systems Review of Systems: Constitutional : No Weight loss, No Fever, No Chills, No Night Sweats, No Fatigue, No Malaise ENT/Mouth : No Hearing loss, No Ear Pain, No Nasal Congestion, No Sinus Pain, No Hoarseness, No sore throat, No Rhinorrhea, No Swallowing Difficulty Eyes: No Eye Pain, No Swelling, No Redness, No Foreign Body, No Discharge, No Vision Changes Cardiovascular : No Chest Pain, No SOB, No Dyspnea on Exertion, No Orthopnea, No Edema, No Palpitations Respiratory : No Cough, No Sputum, No Wheezing, No Smoke Exposure, No Dyspnea Gastrointestinal : No Nausea, No Vomiting, No Diarrhea, No Constipation, No abdominal Pain, No Hematochezia, No Melena Genitourinary : no irregular bleeding, No Dysuria, No Urinary Frequency, No Hematuria, No Urinary Incontinence, No Urgency, No Flank Pain, No Urinary Flow Changes, No Hesitancy Musculoskeletal : Complaining of substernal chest pain Skin : No Skin Lesions, No rash Neuro : No Weakness, No Numbness, No Paresthesias, No Loss of Consciousness, No Dizziness, No Headache Psych : No Anxiety/Panic, No Depression, No SI/HI/AH/VH, No Social Issues, Heme/Lymph: No Bruising, No Bleeding,No Lymphadenopathy Endocrine : No Polyuria, No Polydipsia, No Temperature Intolerance [facility] Past Medical History Medical History Anxiety Atrial fibrillation with controlled ventricular rate Depression Diastolic heart failure GERD (gastroesophageal reflux disease) History of rib fracture HTN (hypertension) Ocular melanoma Social History Social History Household Members: Spouse Housing: House Do you presently have visiting nurse or other home services: No Alcohol intake: never Patient Tobacco Use Status: Never used Tobacco Second Hand Smoke Exposure: No Advance Directives: Yes Advance Directives on File: Yes Advance Directives Date on File: 09/07/20 service: No Current occupational status: retired Physical Exam Vital Signs: Vital Signs: Last Vital Signs Temp 97.8 F 10/18/20 22:50 Pulse 86 10/18/20 22:50 Resp 18 10/18/20 22:50 BP 140/89 H 10/18/20 22:50 Pulse Ox 95 10/18/20 22:50 Body Mass Index 21.7 Const: Other: Appearance: Alert. Oriented X3. No acute distress. Eyes: Pupils equal, round and reactive to light. ENT: Pharynx normal. Neck: Normal inspection. Neck supple. No lymph nodes noted. No crepitus CVS: Normal heart rate and rhythm. Pulses normal. Normal S1 and S2, reproducible chest pain over the sternal, no rib pain Respiratory: No respiratory distress. Breath sounds normal. No Wheezing. No rales Abdomen: Soft and nontender. No rigidity. No distention. good BS x4 Skin: Skin warm and dry. Normal skin color. Normal skin turgor. Extremities: No lower extremity edema. No Lacerations. No Rash Neuro: Oriented X 3. No motor deficit. No sensory deficit. Moving all extermities. No slurred speech. Course Course Course Narrative: I discussed the x-ray with the patient, no acute fractures. Patient states that prior to coming to the emergency room she took two tablets of Tylenol, states the pain is gradually getting better, but just in case would like something stronger before leaving, 1 dose of tramadol given to the patient. MDM - Fall Lab Data Labs: Lab Results 10/18/20 Range/Units 23:19 Urine Color YELLOW Urine Appearance CLEAR Urine pH 6.5 (5.0-8.0) Ur Specific [place] <= 1.005 (1.005-1.025) Urine Protein NEG (NEG-TRACE) MG/DL Urine Glucose (UA) NEG (NEG) MG/DL Urine Ketones NEG (NEG) MG/DL Urine Blood NEG (NEG) Urine Nitrite NEG (NEG) Ur Leukocyte Esterase 3+ H (NEG) Urine RBC 1-4 (0) /HPF Urine WBC 10-14 H (0-4) /HPF Ur Squamous Epith Cells 1+ /LPF Urine Bacteria 1+ /LPF Imaging Data Chest x-ray: Radiologist's impression: Multiple old healed right lateral rib fractures unchanged since chest x-ray September 07, 2020. No acute displaced fracture. Normal aeration of lungs. There is no pleural effusion or pneumothorax. Heart size is normal. Cardiac mediastinal contours are normal. Sternum is not assessed well on a portable AP chest radiograph. Dedicated sternal views recommended for follow-up if clinically warranted. XR/XR chest 1V IMPRESSION: No acute abnormality of chest. ? Discharge Plan Discharge Clinical Impression: Chest wall contusion Qualifiers: Encounter type: initial encounter Laterality: unspecified laterality Qualified Code(s): S20.219A - Contusion of unspecified front wall of thorax, initial encounter Patient Disposition: Home, Self-Care Instructions: Costochondritis (ED) Additional Instructions: Please follow-up with your primary care physician tomorrow. If you have any worsening or new symptoms, please return to the emergency room or call 911 Prescriptions: New tramadol 50 mg tablet 50 mg PO TID PRN (Reason: pain) Qty: 7 RF: 0 No Action digoxin 125 mcg (0.125 mg) tablet 125 mcg PO DAILY Qty: 90 RF: 1 Eliquis 2.5 mg tablet 2.5 mg PO BID 30 Days Qty: 60 RF: 5 furosemide [Lasix] 20 mg tablet 20 mg PO QAM Qty: 90 RF: 1 Hold Instructions: Resume on 09/14/20. metoprolol tartrate 100 mg tablet 100 mg PO BID 90 Days Qty: 180 RF: 3 sertraline [Zoloft] 25 mg tablet 25 mg PO DAILY RF: 0 omeprazole 20 mg capsule,delayed release(DR/EC) 1 cap PO DAILY RF: 0 sertraline 100 mg tablet 1 tab PO DAILY RF: 0 alprazolam 0.25 mg tablet 1 tab PO DAILY PRN (Reason: panic attack) RF: 0 diphenhydramine HCl [Benadryl] 25 mg Capsule 25 mg PO BEDTIME RF: 0 melatonin 5 mg Tablet 5 mg PO BEDTIME RF: 0 calcium carbonate-vitamin D3 [Caltrate with Vitamin D3] 600 mg(1,500mg) -800 unit Tablet 1 tab PO DAILY RF: 0 lisinopril 20 mg Tablet 20 mg PO DAILY Qty: 30 RF: 0 cefuroxime axetil 500 mg tablet 500 mg PO BID Qty: 18 RF: 0 amlodipine 10 mg tablet 10 mg PO DAILY RF: 0
[2020-10-18 23:31] LABS: Glucose Urine UA NEG (NEG); Leukocyte Esterase Urine 3+ (NEG); Nitrite Urine NEG (NEG); PH 6.5 (5.0-8.0); Specific Gravity - Urine <= 1.005 (1.005-1.025); UACC Culture Trigger YES; Urine Blood NEG (NEG); Urine Ketones NEG (NEG); Urine Protein NEG (NEG-TRACE)
[2020-10-18 23:42] LABS: Appearance Urine CLEAR; Color Urine YELLOW
[2020-10-18 23:43] LABS: Bacteria Urine 1+ /LPF; Squamous Epithelial Cell Urine 1+ /LPF; UACC CULT YES
[2020-10-19] MEDS: traMADoL HCL 50 MG TABLET PO (00:21)
--- NOTE | 2020-10-19 00:22 | PC.NURSE ---
PT RESTING ON STRETCHER, DENIES ANY DIFFICULTY BREATHILNG.L PAINLL ELAINA LCLHELSLTL LWALLL INCREASED WITH DEEP INSPIRATION.
== END 2020-10-19 00:38 | disposition home or self-care (01) ==
PROVIDERS: Emergency Provider Emergency Medicine
DX: S20.219A Contusion of unspecified front wall of thorax, initial encounter (principal); W01.190A Fall on same level from slipping, tripping and stumbling with subsequent striking against furniture, initial encounter; I48.91 Unspecified atrial fibrillation; I10 Essential (primary) hypertension; Z79.01 Long term (current) use of anticoagulants; Y93.01 Activity, walking, marching and hiking; Y92.013 Bedroom of single-family (private) house as the place of occurrence of the external cause; Y99.9 Unspecified external cause status
CPT/HCPCS: 71045; 81001; 87086; 99283; 99284

== ENCOUNTER → 2020-12-14 14:10 | Outpatient (BNVA) | payer MEDICARE, OTHER, SELFPAY | PROVIDERS: Visit Provider Nurse Practitioner Family | DX: I48.91 Unspecified atrial fibrillation (principal); I10 Essential (primary) hypertension | CPT/HCPCS: Q3014 ==

== ENCOUNTER 2021-03-30 17:01 | Inpatient (IN) | payer MEDICARE, OTHER, SELFPAY ==
--- NOTE | ~2021-03-30 | MR_ITS ---
EXAMINATION: MR THORACIC SPINE WITHOUT CONTRAST CLINICAL INFORMATION: Severe compression fracture of T9. COMPARISON: CT dated 03/31/2021. TECHNIQUE: MRI of the thoracic spine was obtained using routine sequences without contrast. FINDINGS: There is a severe compression fracture deformity at the T9 level with vertebra plana and bony retropulsion resulting in moderate ventral cord distortion. No intramedullary signal change is identified. There is no syrinx. There is edema within the compressed T9 vertebral body extending into the posterior elements. Additional edema visible in the inferior endplate T8. Mild paraspinal soft tissue inflammatory changes evident at the T8-T9 levels. Thoracic kyphosis is slightly more pronounced as a result of the severe T9 compression fracture deformity. No epidural hematoma evident. No additional compression fractures identified. The marrow signal is otherwise homogeneous. There are no disc protrusions. Moderate hypertrophic facet degeneration slightly distorts the dorsal thecal sac at the T10-T11 level on the left side. There is mild left foraminal narrowing at T10-T11 as well. Mild disc bulge and endplate spurring evident at the T12-L1 level. MR/MR thoracic spine wo con IMPRESSION: Vertebral plana with a severe biconcave compression fracture deformity at the T9 level with surrounding paraspinal soft tissue inflammatory changes. Marrow edema in the T9 vertebra and in the inferior endplate of T8. Bony retropulsion results in [id number] central canal stenosis and moderate ventral cord deformity. No definite cord signal changes. No visible epidural fluid collection.
--- NOTE | ~2021-03-30 | CT_ITS ---
EXAMINATION: CT THORACIC SPINE CLINICAL INFORMATION: Post T9 kyphoplasty. COMPARISON: Pre kyphoplasty CT performed earlier today and MRI thoracic spine 04/03/2021. TECHNIQUE: Axial 2 mm thin and reformatted 2 mm thin sagittal and coronal images of thoracic spine were obtained. This CT examination was performed using dose optimization techniques as appropriate, variously including the following: *Automated exposure control *Adjustment of mA and/or kV according to patient size (this includes techniques or standardized protocols for targeted exams where dose is matched to indication/reason for exam; i.e. extremities or head) *Use of iterative reconstruction technique DLP: 115 mGy-cm FINDINGS: On sagittal imaging there is adequate amount of cement occupying the compressed T9 vertebra with slight increase in the vertebral height compared to pre kyphoplasty CT. No extravasation seen. Moderate posterior bony component projecting into the spinal canal is unchanged to the pre kyphoplasty CT. The visualized T8 and T10 vertebral heights are normal. The adjacent disc levels are normal. The paravertebral soft tissues are normal. Partially visualized both lower lobes are unremarkable. CT/CT thoracic spine post vert IMPRESSION: Adequate amount of cement occupying T9 compression fracture. There is mild increase in the vertebral height compared to previous exam. There is no significant change in the posterior bony component extending into the spinal canal and causing moderate canal stenosis when compared to pre kyphoplasty CT. Fleischner guidelines were followed.
--- NOTE | ~2021-03-30 | CT_ITS ---
EXAMINATION: CT HEAD WITHOUT CONTRAST CLINICAL INFORMATION: Change in mental status COMPARISON: Brain MRI 09/08/[address] 09/07/2020 TECHNIQUE: Contiguous axial imaging was performed from the skull base to vertex without intravenous administration of contrast. This CT examination was performed using dose optimization techniques as appropriate, variously including the following: *Automated exposure control *Adjustment of mA and/or kV according to patient size (this includes techniques or standardized protocols for targeted exams where dose is matched to indication/reason for exam; i.e. extremities or head) *Use of iterative reconstruction technique DLP: 576 mGy-cm FINDINGS: There is no evidence of acute intracranial hemorrhage or territorial infarction. No abnormal mass effect or midline shift is appreciated. Smith-white differentiation is well preserved. No extra-axial fluid collections. The ventricular system and cortical sulci are prominent, consistent with age-appropriate volume loss. There are areas of low density in the periventricular and subcortical white matter, most consistent with sequelae of microvascular ischemic change. The osseous structures and soft tissues are normal. Similar metallic foreign body abutting the right lobe. There are calcifications of the cavernous internal carotid arteries. The visualized paranasal sinuses and mastoid air cells are well aerated. CT/CT head/brain wo con IMPRESSION: Chronic microvascular ischemic changes with no CT evidence of acute intracranial abnormality.
--- NOTE | ~2021-03-30 | IR_ITS ---
EXAMINATION: IR THORACIC VERTEBROPLASTY CLINICAL INFORMATION: Severe T9 acute compression fracture with osteoporosis. COMPARISON: MRI thoracic spine 04/10/2021. CT pre-kyphoplasty performed today. TECHNIQUE: Following explaining fluoroscopy-guided bipedicle approach T9 kyphoplasty procedure, benefits and risk to the patient's daughter, a phone consent was obtained in the presence of IR nurse Vieira. Patient was placed prone on fluoroscopy table and T9 pedicles were identified on the skin. The back was cleaned and draped in the usual sterile manner. 1% lidocaine was injected at the skin site following localization of right T9 pedicle. A 22-gauge spinal needle was advanced from the skin to the level of the periosteum of the pedicle and 0.25 Sensorcaine injected. Through a small skin incision, a 10-gauge Kyphon needle was advanced from the skin, through the pedicle into posterior one-third of the T9 vertebra. A second 10-gauge Kyphon needle was advanced in a similar fashion into the T9 posterior one-third vertebra through the left pedicle following injection of lidocaine at the skin and Marcaine around the periosteum. A drill was placed through the right followed by left needle and a track created. Subsequently, high tensile balloons were inserted from the right followed by the left needle up to 5 minutes. The balloons were deflated and removed and pre-mixed polymethylmethacrylate was injected through the right followed by left needle making sure no cement leaked on continuous AP, oblique and lateral fluoroscopy. After achieving an adequate amount of cement and observing no cement leak, both needles were withdrawn and complete hemostasis achieved at puncture site. Patient tolerated the procedure extremely well. Sedation was provided by anesthesia department. FINDINGS: On preliminary imaging, there is a severe compression fracture of the T9 vertebra. There is a moderate posterior bony component causing spinal canal stenosis as noted on the preceding CT cervical spine and the MRI thoracic spine exams. There is an adequate amount of cement occupying the T9 vertebra. No extravasation is seen. A CT of the thoracic T9 vertebra will be performed subsequently. FLUOROSCOPY TIME: 19.1 minutes DOSE AREA PRODUCT: 2138 uGy-m2 (microgray-meter squared) IR/IR kyphoplasty thoracic IMPRESSION: Successful bipedicle approach T9 kyphoplasty performed without immediate complications.
--- NOTE | ~2021-03-30 | CT_ITS ---
EXAMINATION: CT CHEST WITHOUT CONTRAST CLINICAL INFORMATION: Abnormal chest x-ray, rule out pneumonia. COMPARISON: Chest radiographs dated 03/30/2021 and 10/18/2020, chest CT dated 06/20/2020. TECHNIQUE: Multidetector volumetric CT imaging of the chest was done. Axial MIP volume rendering provided. Sagittal and coronal reformatted images were obtained. This CT examination was performed using dose optimization techniques as appropriate, variously including the following: *Automated exposure control *Adjustment of mA and/or kV according to patient size (this includes techniques or standardized protocols for targeted exams where dose is matched to indication/reason for exam; i.e. extremities or head) *Use of iterative reconstruction technique DLP: 81 mGy-cm FINDINGS: LUNGS/PLEURA/AIRWAYS: Mild elevation of the left hemidiaphragm. Minimal biapical scarring is seen. No significant new/suspicious pulmonary nodules are seen. Linear atelectasis/scarring is seen in the lingula and lung bases, greatest at the left lung base. There are no pleural effusions. The airways are patent. MEDIASTINUM: The thyroid gland is unremarkable. Mild to moderate atherosclerosis is seen in the thoracic aorta. The ascending aorta measures up to 3.9 cm in AP dimension (image 30, series 3). Moderate calcifications are seen in the coronary arteries. Trace pericardial effusion. UPPER ABDOMEN: Unremarkable. MUSCULOSKELETAL: Greater than 80% compression deformity of the T9 vertebral body with adjacent vacuum discs. An associated increased kyphosis and mild thoracic dextro scoliosis. Narrowing of the spinal canal is seen at this level with mid sagittal diameter of approximately 7 mm (image 33, series 3). SOFT TISSUES: Unremarkable. CT/CT chest wo con IMPRESSION: 1. No focal consolidation or pleural effusions. Radiographic findings appear to represent summation of overlapping structures including pleura and pericardium. Mild chronic linear atelectasis/scarring. 2. Interval development of greater than 80% anterior compression deformity of T9. There is associated narrowing of the spinal canal at this level as detailed above. Further evaluation with thoracic spine MRI is recommended to better assess the spinal cord.
--- NOTE | ~2021-03-30 | XR_ITS ---
EXAMINATION: XR CHEST CLINICAL INFORMATION: Mental status change. Cough. Concern for pneumonia. COMPARISON: Chest x-ray 10/18/2020. CT abdomen pelvis 09/10/2020. CT chest 06/20/2020 TECHNIQUE: Frontal portable view of the chest was obtained. 6:16 PM FINDINGS: Density at the left lung base near the costophrenic angle partially obscures the apex of the left heart in the peripheral left diaphragm. This may be small area of focal consolidation and/or pleural effusion. There is a prominent left-sided epicardial fat pad as seen on CT study 09/10/2020 which could account for some of this density. The right lung is normally aerated. No pulmonary vascular congestion. XR/XR chest 1V IMPRESSION: Density at the left lung base may be due to consolidation and/or pleural effusion.
--- NOTE | ~2021-03-30 | CT_ITS ---
EXAMINATION: CT THORACIC SPINE WITHOUT CONTRAST CLINICAL INFORMATION: T9 compression fracture. Evaluation prior to kyphoplasty. COMPARISON: Thoracic spine MRI from 04/03/2021. CT chest from 03/31/2021. TECHNIQUE: Multidetector helical imaging of the thoracic spine was obtained without intervenous contrast from the levels of T6-T10. Multiple axial reformats and coronal/sagittal reconstructions were created the technologist workstation for review. This CT examination was performed using dose optimization techniques as appropriate, variously including the following: *Automated exposure control *Adjustment of mA and/or kV according to patient size (this includes techniques or standardized protocols for targeted exams where dose is matched to indication/reason for exam; i.e. extremities or head) *Use of iterative reconstruction technique DLP: 80 mGy-cm FINDINGS: Stable appearance of vertebra plana deformity of the T9 vertebral body. Right convex curvature of the thoracic spine and focally accentuated kyphosis centered on T9. There remains 0.8 cm retropulsion of the posterior body wall of T9, similar to prior exam. Associated focal stenosis of the spinal canal at this level. Advanced left and moderate right neural foraminal stenoses at T9-T10. Redemonstrated nondisplaced fractures of the T7 and T8 spinous processes. No additional acute fracture demonstrated. Chronic partially healed deformity of the right-sided T6-T10 posterior ribs with overlapping and partially bridged osseous fragments. Coronary artery calcifications. Generalized cardiac enlargement. No additional abnormal intrathoracic abnormalities demonstrated. CT/CT thoracic spine wo con IMPRESSION: 1. Redemonstrated vertebra plana deformity of the T9 vertebral body with 0.8 cm retropulsion of the posterior body wall. 2. Redemonstrated nondisplaced fractures of the T7 and T8 spinous processes.
[2021-03-30 17:11] VITALS: BP 111/48; BP 120/70; PULSE 77; PULSE 90; RESP 18; TEMP 36.6; O2SAT 95; O2SAT 98; BMI 20.6
[2021-03-30 17:54] LABS: MANUAL DIFF FLAG NO
[2021-03-30 17:58] LABS: Basophils Percent Auto 0.5 % (0-2); Eosinophils Absolute Auto 0.1 X10*3/uL (0.0-0.4); Eosinophils Percent Auto 1.1 % (0-4); Hematocrit 39.3 % (37.0-47.0); Hemoglobin 13.2 g/dl (12.0-16.0); Imm Gran Abs Auto 0.02 X10*3/uL (0.00-0.03); Imm Gran Pct Auto 0.2 % (0.0-0.4); Lymphocytes Absolute Auto 2.5 X10*3/uL (1.2-4.9); Lymphocytes Percent Auto 30.1 % (20-40); Mean Corpuscular HGB Conc 33.6 g/dl (31.0-35.0); Mean Corpuscular Hemoglobin 30.4 pg (27.0-33.0); Mean Corpuscular Volume 90.6 fL (80.0-98.0); Mean Platelet Volume 11.6 fL (9.4-12.3); Monocytes Absolute Auto 0.4 X10*3/uL (0.1-1.2); Monocytes Percent Auto 5.4 % (2-11); Neutrophils Absolute Auto 5.1 x10*3/uL (2.0-8.3); Neutrophils Percent Auto 62.7 % (45-73); Platelet Count 259 X10*3/uL (160-400); Red Blood Count 4.34 X10*6/uL (4.20-5.50); Red Cell Distribution Width 13.9 % (11.0-16.0); White Blood Count 8.2 X10*3/uL (4.8-10.8)
--- NOTE | 2021-03-30 17:59 | ED_ITS ---
HPI - Altered Mental Status General Chief Complaint: Altered Mental Status Stated Complaint: WEAKNESS,? UTI Time Seen by Provider: 03/30/21 17:46 Source: RN notes reviewed Mode of arrival: EMS Limitations: no limitations History of Present Illness HPI narrative: 80-year-old female who was sent to the emergency department by her daughter for evaluation of increased confusion and anxiety. Apparently the patient lives with her daughter Katia who can be reached at . According to the ED nurse, the patient was reported to have increased confusion increased anxiety which the daughter believes has been caused in the past by urinary tract infections. The patient lacks insight into why she is here in the emergency department I did talk to the patient's daughter, Katia. She states that the patient has been confused since last night. The patient could not remember the name of her great grand children and was upset and was yelling. She was also incontinent of stool which is unusual for her. She had difficulty taking her pills and the daughter states that she found her pills all over the patient's bedroom which is again unusual for her. The patient has had a cough and has complained of chills over the past 1-2 days. The daughter took the patient's temperature but did not documented fever. The daughter states the patient appeared short of breath and had some dyspnea on exertion which is new. The daughter states the patient has had an unexplained weight loss over 1 year. The patient had low blood pressures 3 weeks prior and the dexigraph operator that takes care of the patient advised s topping her lisinopril. The patient does take apixaban and digoxin. Related Data Home Medications Medication Instructions Recorded Confirmed omeprazole 20 mg 1 cap PO DAILY 02/26/20 03/30/21 capsule,delayed release amlodipine 10 mg tablet 10 mg PO DAILY 03/16/20 03/30/21 calcium carbonate 600 1 tab PO DAILY 09/07/20 03/30/21 mg-vitamin D3 20 mcg (800 unit) tablet (Caltrate with Vitamin D3) melatonin 5 mg tablet 5 mg PO BEDTIME PRN 09/07/20 03/30/21 alprazolam 0.5 mg tablet 0.5 mg PO BID PRN 12/14/20 03/30/21 digoxin 125 mcg (0.125 mg) 125 mcg PO TUWETHFR 02/03/22 02/03/22 tablet trazodone 50 mg tablet 0.5 - 1 tab PO BEDTIME PRN 03/30/21 03/30/21 Previous Rx's Medication Instructions Recorded metoprolol tartrate 100 mg tablet 100 mg PO BID 90 Days #180 tab 09/22/20 apixaban 2.5 mg tablet (Eliquis) 2.5 mg PO BID 30 Days #60 tab 11/03/20 Allergies Allergy/AdvReac Type Severity Reaction Status Date / Time No Known Allergies Allergy Verified 12/14/20 14:04 Review of Systems Verdana 4l Review of Systems: Yes Unobtainable due to mental status Verdana 4d PMFSH Past Medical History Medical History Anxiety Atrial fibrillation with controlled ventricular rate Depression Diastolic heart failure GERD (gastroesophageal reflux disease) History of rib fracture HTN (hypertension) Ocular melanoma Social History Social History Household Members: Spouse Housing: House Do you presently have visiting nurse or other home services: No Alcohol intake: never Patient Tobacco Use Status: Never used Tobacco Second Hand Smoke Exposure: No Use of substances other than those prescribed or required for medical reasons: No Advance Directives: No Advance Directives Information Provided: No Advance Directives Date on File: 09/07/20 service: No Current occupational status: retired Physical Exam Verdana 4l Vital Signs: Verdana 4d Verdana 4d Vital Signs: Verdana 4d Verdana 4Bd Last Vital Signs Verdana 4d Chief Clinical Officer New 4d Chief Clinical Officer New 4d Temp 97.8 F 03/30/21 17:11 Chief Clinical Officer New 4d Pulse 90 03/30/21 21:25 Chief Clinical Officer New 4d Resp 18 03/30/21 21:25 BP 125/84 03/30/21 21:25 Pulse Ox 96 03/30/21 21:25 BMI result Body Mass Index 20.6 Const: Other: Awake, alert, frail elderly female patient, BMI 20, oriented to person only, lacks insight as to why she is here Orientation/consciousness: oriented to person HENMT: Head: Yes normal to inspection, Yes normocephalic and Yes atraumatic Ears: external ears normal General nose exam: Normal external nose present Face and sinus: Yes normal facial exam Mouth: Normal oral and palatal mucosa present Throat: Yes posterior oropharynx normal Eyes: General: appearance normal, both eyes and all related structures Pupils: Equal, round and reactive pupils present Neck: Neck: Yes normal visual inspection, Yes no lymphadenopathy, Yes trachea midline and Yes supple Chest: Chest palpation & inspection: normal inspection of the chest and normal palpation of entire chest wall Resp: Effort & Inspection: normal respiratory effort and able to speak in complete sentences Auscultation: clear to auscultation bilaterally Cardio: Rate: regular rate Rhythm: regular rhythm Heart sounds: S1 normal heart sound present, S2 normal heart sound present and no murmurs GI: Inspection: Yes normal to inspection Palpation (GI): Soft to palpation, nontender and no guarding Auscultation: normal bowel sounds : General: Yes no CVA tenderness Back/Spine/Pelvis: Back: no CVA tenderness Skin: General skin exam: no rashes or lesions noted Neuro: General: oriented to person Cranial nerves: Yes CN's II-XII intact bilaterally and Yes Equal, round and reactive pupils present Cognition (Neuro): normal cognition Motor exam (neuro): 5/5 motor strength present throughout Extrem: General: Yes normal to inspection Psych: Appearance: grossly normal Speech and movement: Normal speech and movement present Course Course Course Narrative: 80-year-old female who was sent to the emergency department by her daughter for evaluation of change in mental status and anxiety. Apparently she has had similar presentations in the past with urinary tract infection. The patient lacks insight as to why she is here. She does not appear to be in distress. Initial vital signs revealed a blood pressure of 111/48, otherwise were unremarkable. I did order a workup to include CBC, CMP, lipase, straight cath urinalysis, blood cultures x2. CT scan of the head will also be obtained. 2028: The patient's laboratory evaluation revealed a normal CBC. The patient's INR was slightly elevated 1.4. BUN was elevated at 33 with a normal creatinine of 0.99. Lactic acid was normal at 1.1. Calcium was slightly high at 10.9. Urinalysis was negative. Chest x-ray is concerning for possible left lower lobe infiltrate. Patient was treated with ceftriaxone 1 g IV and azithromycin 500 mg IV. She also ordered to get normal saline IV x1 L. 2153: I did discuss the patient's presentation with the covering hospitalist, Dr. Brownlee and the patient will be admitted to the hospital service for further management. MDM - Altered Mental Status Lab Data Result diagrams: 03/30/21 17:45 03/30/21 18:17 Labs: Lab Results 03/30/21 03/30/21 03/30/21 Range/Units 17:45 17:45 17:45 WBC 8.2 (4.8-10.8) X10*3/uL RBC 4.34 (4.20-5.50) X10*6/uL Hgb 13.2 (12.0-16.0) g/dl Hct 39.3 (37.0-47.0) % MCV 90.6 (80.0-98.0) fL MCH 30.4 (27.0-33.0) pg MCHC 33.6 (31.0-35.0) g/dl RDW 13.9 (11.0-16.0) % Plt Count 259 (160-400) X10*3/uL MPV 11.6 (9.4-12.3) fL Immature Gran % (Auto) 0.2 (0.0-0.4) % Neut % (Auto) 62.7 (45-73) % Lymph % (Auto) 30.1 (20-40) % [place] % (Auto) 5.4 (2-11) % Eos % (Auto) 1.1 (0-4) % Baso % (Auto) 0.5 (0-2) % Lymph # (Auto) 2.5 (1.2-4.9) X10*3/uL [place] # (Auto) 0.4 (0.1-1.2) X10*3/uL Eos # (Auto) 0.1 (0.0-0.4) X10*3/uL Baso # (Auto) 0.0 (0.0-0.2) X10*3/uL Abs Immat Gran (auto) 0.02 (0.00-0.03) X10*3/uL Absolute Neuts (auto) 5.1 (2.0-8.3) x10*3/uL Absolute Nucleated RBC 0.000 (0.0-0.012) X10*3/uL Nucleated RBC % (auto) 0.0 (0.0-0.2) /100WBC VBG pH (7.32-7.43) VBG pCO2 mmHg VBG pO2 mmHg VBG HCO3 (22-26) mmol/L VBG O2 Saturation % VBG Base Excess mmol/L Sodium (135-145) mmol/L Potassium (3.3-5.1) mmol/L Chloride (96-108) mmol/L Carbon Dioxide (22-29) mmol/L Anion Gap (12-20) BUN (9-16) mg/dL Creatinine (0.5-1.4) mg/dL Estim Creat Clear Calc Estimated GFR Random Glucose (60-115) mg/dL Lactic Acid 1.1 (0.5-2.0) mmol/L Calcium (8.4-10.2) mg/dL Total Bilirubin (0.0-1.0) mg/dL AST (5-31) U/L ALT (0-31) U/L Alkaline Phosphatase (39-117) U/L Total Protein (6.5-8.0) g/dL Albumin (3.5-5.0) g/dL Lipase (8-78) U/L Urine Color YELLOW Urine Appearance CLEAR Urine pH 6.0 (5.0-8.0) Ur Specific [place] 1.025 (1.005-1.025) Urine Protein TRACE (NEG-TRACE) MG/DL Urine Glucose (UA) NEG (NEG) MG/DL Urine Ketones NEG (NEG) MG/DL Urine Blood NEG (NEG) Urine Nitrite NEG (NEG) Ur Leukocyte Esterase NEG (NEG) COVID-19 (KYLEE) (Negative) COVID-19 Clin Com 03/30/21 03/30/21 03/30/21 Range/Units 17:46 18:17 21:23 WBC (4.8-10.8) X10*3/uL RBC (4.20-5.50) X10*6/uL Hgb (12.0-16.0) g/dl Hct (37.0-47.0) % MCV (80.0-98.0) fL MCH (27.0-33.0) pg MCHC (31.0-35.0) g/dl RDW (11.0-16.0) % Plt Count (160-400) X10*3/uL MPV (9.4-12.3) fL Immature Gran % (Auto) (0.0-0.4) % Neut % (Auto) (45-73) % Lymph % (Auto) (20-40) % [place] % (Auto) (2-11) % Eos % (Auto) (0-4) % Baso % (Auto) (0-2) % Lymph # (Auto) (1.2-4.9) X10*3/uL [place] # (Auto) (0.1-1.2) X10*3/uL Eos # (Auto) (0.0-0.4) X10*3/uL Baso # (Auto) (0.0-0.2) X10*3/uL Abs Immat Gran (auto) (0.00-0.03) X10*3/uL Absolute Neuts (auto) (2.0-8.3) x10*3/uL Absolute Nucleated RBC (0.0-0.012) X10*3/uL Nucleated RBC % (auto) (0.0-0.2) /100WBC VBG pH 7.40 (7.32-7.43) VBG pCO2 40 mmHg VBG pO2 45 mmHg VBG HCO3 25 (22-26) mmol/L VBG O2 Saturation 70.0 % VBG Base Excess 0.5 mmol/L Sodium 144 (135-145) mmol/L Potassium 4.0 (3.3-5.1) mmol/L Chloride 106 (96-108) mmol/L Carbon Dioxide 28 (22-29) mmol/L Anion Gap 14 (12-20) BUN 33 H (9-16) mg/dL Creatinine 0.99 (0.5-1.4) mg/dL Estim Creat Clear Calc 38.3 Estimated GFR 54 Random Glucose 100 (60-115) mg/dL Lactic Acid (0.5-2.0) mmol/L Calcium 10.9 H D (8.4-10.2) mg/dL Total Bilirubin 0.6 (0.0-1.0) mg/dL AST 19 (5-31) U/L ALT 24 (0-31) U/L Alkaline Phosphatase 97 D (39-117) U/L Total Protein 7.6 (6.5-8.0) g/dL Albumin 4.3 (3.5-5.0) g/dL Lipase 26 (8-78) U/L Urine Color Urine Appearance Urine pH (5.0-8.0) Ur Specific [place] (1.005-1.025) Urine Protein (NEG-TRACE) MG/DL Urine Glucose (UA) (NEG) MG/DL Urine Ketones (NEG) MG/DL Urine Blood (NEG) Urine Nitrite (NEG) Ur Leukocyte Esterase (NEG) COVID-19 (KYLEE) Negative (Negative) COVID-19 Clin Com See Note ECG Data ECG #1: Attestation: I personally reviewed and interpreted this ECG as follows: Interpretation: KG. Discharge Plan Discharge Patient Disposition: Admitted As Inpatient Prescriptions: No Action metoprolol tartrate 100 mg tablet 100 mg PO BID 90 Days Qty: 180 3RF Eliquis 2.5 mg tablet 2.5 mg PO BID 30 Days Qty: 60 5RF omeprazole 20 mg capsule,delayed release(DR/EC) 1 cap PO DAILY 0RF melatonin 5 mg Tablet 5 mg PO BEDTIME PRN (Reason: Sleep) 0RF calcium carbonate-vitamin D3 [Caltrate with Vitamin D3] 600 mg(1,500mg) -800 unit Tablet 1 tab PO DAILY 0RF trazodone 50 mg tablet 0.5 - 1 tab PO BEDTIME PRN (Reason: insomnia) 0RF digoxin 125 mcg (0.125 mg) tablet 125 mcg PO TUWETHFR 0RF amlodipine 10 mg tablet 10 mg PO DAILY 0RF alprazolam 0.5 mg tablet 0.5 mg PO BID PRN (Reason: Anxiety) 0RF
[2021-03-30 18:06] LABS: Lactic Acid 1.1 mmol/L (0.5-2.0)
[2021-03-30 18:07] LABS: Appearance Urine CLEAR; Color Urine YELLOW; Glucose Urine UA NEG (NEG); Leukocyte Esterase Urine NEG (NEG); Nitrite Urine NEG (NEG); Specific Gravity - Urine 1.025 (1.005-1.025); Urine Blood NEG (NEG); Urine Ketones NEG (NEG); Urine Protein TRACE MG/DL (NEG-TRACE)
[2021-03-30 18:23] LABS: COVID-19 Test Negative (Negative); IDNOW Serial# 55D5AD1C
[2021-03-30 18:45] LABS: Alanine Aminotransferase 24 U/L (0-31); Albumin Level 4.3 g/dL (3.5-5.0); Alkaline Phosphatase 97 U/L (39-117); Anion Gap 14 (12-20); Aspartate Amino Transferase 19 U/L (5-31); Bilirubin Total 0.6 mg/dL (0.0-1.0); Blood Urea Nitrogen 33 mg/dL (9-16); Calcium 10.9 mg/dL (8.4-10.2); Carbon Dioxide 28 mmol/L (22-29); Chloride 106 mmol/L (96-108); Creatinine Clr Calc Pharmacy 38.3; Estimated Glomerular Filt Rate 54; Glucose Random 100 mg/dL (60-115); Lipase 26 U/L (8-78); Sodium 144 mmol/L (135-145); Total Protein 7.6 g/dL (6.5-8.0)
--- NOTE | 2021-03-30 20:02 | PHA.MEDREC ---
Pharmacy Consult ? Medication Reconciliation Pharmacy has completed the medication reconciliation. Per Daughter, digoxin decreased to 4x a week; ,,,fr
[2021-03-30] MEDS: cefTRIAXone sodium 1 GM in 0.9 % Sodium Chloride 50 ML IV (20:12)
[2021-03-30] MEDS: 0.9 % Sodium Chloride 1,000 ML 999 ML IV (20:46)
[2021-03-30] MEDS: Azithromycin 500 MG in 0.9 % Sodium Chloride 250 ML 125 MG IV (20:59)
[2021-03-30 21:25] VITALS: BP 125/84; PULSE 90; RESP 18; O2SAT 96
[2021-03-30 21:30] LABS: VBG Base Excess 0.5 mmol/L; VBG HCO3 25 mmol/L (22-26); VBG pCO2 40 mmHg; VBG pO2 45 mmHg
--- NOTE | 2021-03-30 21:57 | P.HPHOSP_ITS ---
History of Present Illness Date of Service: 03/30/21 Chief Complaint: confusion 80-year-old female with a past medical history of hypertension, diastolic CHF, AFib on Eliquis, anxiety, dementia, GERD, history of ocular melanoma; presented to the hospital with a chief complaint of confusion. Patient is lying in the bed comfortably, pleasantly confused. Disorder appears to be in distress. Breathing comfortably on room air. Spoke to the patient's daughter Katia who mentioned that patient has been having cough for the past 1 day and noted to be confused, hence brought her to the hospital for further evaluation. Denies any sputum production Denies any fevers Denies any difficulty swallowing. Denied patient complaining of any chest pain palpitations lightheadedness or dizziness. Denies any falls. Review of all other systems is negative except mentioned above ER course: Per ER team patient noted to have stable vitals, chest x-ray showed pneumonia; labs essentially benign except for mildly elevated calcium level of 10.9. Admitted to the hospital for further management [facility] Medical History Anxiety Atrial fibrillation with controlled ventricular rate Depression Diastolic heart failure GERD (gastroesophageal reflux disease) History of rib fracture HTN (hypertension) Ocular melanoma Pertinent family history: patient unable to provide information Social History Household Members: Spouse Housing: House Do you presently have visiting nurse or other home services: No Alcohol intake: never Patient Tobacco Use Status: Never used Tobacco Second Hand Smoke Exposure: No Use of substances other than those prescribed or required for medical reasons: No Advance Directives: No Advance Directives Information Provided: No Advance Directives Date on File: 09/07/20 service: No Current occupational status: retired [employer] Allergies Allergy/AdvReac Type Severity Reaction Status Date / Time No Known Allergies Allergy Verified 12/14/20 14:04 Active Medications: Current Medications Acetaminophen (Acetaminophen 325 Mg Tablet) 650 mg PO Q6H PRN PRN Reason: Pain, Mild (Pain Scale 1-3) Heparin Sodium (Porcine) (Heparin Sodium,Porcine 5,000 Unit/Ml Vial) 5,000 unit SUBCUT Q12H LINDSAY Melatonin (Melatonin 3 Mg Tablet) 6 mg PO BEDTIME PRN PRN Reason: Insomnia Pharmacy Consult (Consult Rx Perform Med Rec) 1 each MISCELLANE ONCE PRN PRN Reason: Consult order Senna (Sennosides 8.6 Mg Tablet) 17.2 mg PO BEDTIME PRN PRN Reason: Constipation Sodium Chloride (0.9 % Sodium Chloride Flush 3 Ml Syringe) 3 ml IVFLUSH QSHIFT [facility] Home Medications Medication Instructions Recorded Confirmed Last Taken Type omeprazole 20 mg 1 cap PO DAILY 02/26/20 03/30/21 03/30/21 History capsule,delayed release amlodipine 10 mg 10 mg PO DAILY 03/16/20 03/30/21 03/30/21 History tablet calcium carbonate 1 tab PO DAILY 09/07/20 03/30/21 03/30/21 History 600 mg-vitamin D3 20 mcg (800 unit) tablet (Caltrate with Vitamin D3) melatonin 5 mg 5 mg PO BEDTIME 09/07/20 03/30/21 03/29/21 History tablet PRN alprazolam 0.5 mg 0.5 mg PO BID 12/14/20 03/30/21 03/30/21 History tablet PRN digoxin 125 mcg 125 mcg PO 03/30/21 03/30/21 03/30/21 History (0.125 mg) tablet TUWETHFR trazodone 50 mg 0.5 - 1 tab PO 03/30/21 03/30/21 Unknown History tablet BEDTIME PRN Physical Exam Verdana 4l Vital Signs and Narrative: Verdana 4d Verdana 4d Vital Signs: Verdana 4d Verdana 4Bd Last Vital Signs Verdana 4d Riding Double New 4d Riding Double New 4d Temp 97.8 F 03/30/21 17:11 Riding Double New 4d Pulse 90 03/30/21 21:25 Riding Double New 4d Resp 18 03/30/21 21:25 BP 125/84 03/30/21 21:25 Pulse Ox 96 03/30/21 21:25 BMI result Body Mass Index 20.6 Gen: Appears be in no acute distress HEENT: NCAT, Moist mucosa. Pulmonary: course breath sounds, fair air entry CVS: Normal S1-S2 Abdomen: BS+, Soft, Nontender Extremities: Warm well perfused Neuro: Alert and awake. Oriented to self Results Labs CBC and Chem 7: 03/30/21 17:45 03/30/21 18:17 Labs: Laboratory Results - last 24 hr 03/30/21 03/30/21 03/30/21 17:45 17:45 17:45 MCV 90.6 MCH 30.4 MCHC 33.6 RDW 13.9 Plt Count 259 MPV 11.6 Immature Gran % (Auto) 0.2 Neut % (Auto) 62.7 Lymph % (Auto) 30.1 [place] % (Auto) 5.4 Eos % (Auto) 1.1 Baso % (Auto) 0.5 Lymph # (Auto) 2.5 [place] # (Auto) 0.4 Eos # (Auto) 0.1 Baso # (Auto) 0.0 Abs Immat Gran (auto) 0.02 Absolute Neuts (auto) 5.1 Absolute Nucleated RBC 0.000 Nucleated RBC % (auto) 0.0 VBG pH VBG pCO2 VBG pO2 VBG HCO3 VBG O2 Saturation VBG Base Excess Anion Gap Estim Creat Clear Calc Estimated GFR Random Glucose Lactic Acid 1.1 Calcium Total Bilirubin AST ALT Alkaline Phosphatase Total Protein Albumin Lipase Urine Color YELLOW Urine Appearance CLEAR Urine pH 6.0 Ur Specific [place] 1.025 Urine Protein TRACE Urine Glucose (UA) NEG Urine Ketones NEG Urine Blood NEG Urine Nitrite NEG Ur Leukocyte Esterase NEG COVID-19 (KYLEE) COVID-Neven [facility] Com 03/30/21 03/30/21 03/30/21 17:46 18:17 21:23 MCV MCH MCHC RDW Plt Count MPV Immature Gran % (Auto) Neut % (Auto) Lymph % (Auto) [place] % (Auto) Eos % (Auto) Baso % (Auto) Lymph # (Auto) [place] # (Auto) Eos # (Auto) Baso # (Auto) Abs Immat Gran (auto) Absolute Neuts (auto) Absolute Nucleated RBC Nucleated RBC % (auto) VBG pH 7.40 VBG pCO2 40 VBG pO2 45 VBG HCO3 25 VBG O2 Saturation 70.0 VBG Base Excess 0.5 Anion Gap 14 Estim Creat Clear Calc 38.3 Estimated GFR 54 Random Glucose 100 Lactic Acid Calcium 10.9 H D Total Bilirubin 0.6 AST 19 ALT 24 Alkaline Phosphatase 97 D Total Protein 7.6 Albumin 4.3 Lipase 26 Urine Color Urine Appearance Urine pH Ur Specific [place] Urine Protein Urine Glucose (UA) Urine Ketones Urine Blood Urine Nitrite Ur Leukocyte Esterase COVID-19 (KYLEE) Negative COVID-19 Clin Com See Note Imaging Radiologist's Impressions: Impressions Chest X-Ray 03/30/21 18:21 IMPRESSION: Density at the left lung base may be due to consolidation and/or pleural effusion. Head CT 03/30/21 20:17 IMPRESSION: Chronic microvascular ischemic changes with no CT evidence of acute intracranial abnormality. Assessment and Plan (1) Acute alteration in mental status: Status: Acute (2) Pneumonia: Qualifiers: Laterality: left Lung location: lower lobe of lung Pneumonia type: due to unspecified organism Qualified Code(s): J18.9 - Pneumonia, unspecified organism Status: Acute Plan 80-year-old female with a past medical history of hypertension, diastolic CHF, AFib on Eliquis, anxiety, dementia, GERD, history of ocular melanoma; presented to the hospital with a chief complaint of confusion. noted to have pneumonia. Admitted for further management. Altered mental status: Toxic metabolic encephalopathy. Supportive care. Pneumonia: Continue ceftriaxone doxycycline. Follow up cultures. Patient currently breathing comfortably on room air. COVID-19 negative. Hypercalcemia: Continue gentle IV fluids. Patient has history of diastolic CHF. Monitor for signs of fluid overload. History of AFib: Rate controlled. Continue home Eliquis. Continue home metoprolol, digoxin History of hypertension: Hold home amlodipine for now in the setting of infection. Monitor vitals and add Amlodipine as needed. History of anxiety: Continue home alprazolam DVT prophylaxis: patient on Eliquis Code status: Full code. Confirmed with the patient's daughter Katia Palomino Stroke Does the patient have a stroke diagnosis?: No VTE Prior VTE?: No VTE Risk Level:: Medical - moderate - high VTE Device Contraindication: Treatment Not Indicated VTE Drug Contraindication: N/A - Med Ordered
[2021-03-30 22:13] LABS: Digoxin 0.6 ng/mL (0.8-2.0)
--- NOTE | 2021-03-30 22:30 | PC.NURSE ---
called pharmacy to get digoxin. awaiting medication
[2021-03-31] VITALS: BP 112/63; PULSE 88; RESP 16; TEMP 36.4; O2SAT 97
--- NOTE | 2021-03-31 00:44 | PC.NURSE ---
Report given to Kimberly in [place]. Plan for transport.
[2021-03-31] MEDS: 0.9 % Sodium Chloride Flush 3 ML SYRINGE IVFLUSH ×2 (01:21→09:38)
--- NOTE | 2021-03-31 01:57 | PC.NURSE ---
Patient arrive from ed to overflow bed 12 at 0100. Patient is alert, pleasantly confused, assisted patient to bedside commode. Patient offers no complaints at this time, lungs diminished, cough noted, vss. Callbell within reach, bed alarm activated.
[2021-03-31 07:24] LABS: MANUAL DIFF FLAG NO
[2021-03-31 07:31] LABS: Basophils Percent Auto 0.3 % (0-2); Eosinophils Absolute Auto 0.1 X10*3/uL (0.0-0.4); Eosinophils Percent Auto 0.7 % (0-4); Hematocrit 35.4 % (37.0-47.0); Imm Gran Abs Auto 0.03 X10*3/uL (0.00-0.03); Imm Gran Pct Auto 0.4 % (0.0-0.4); Lymphocytes Absolute Auto 2.1 X10*3/uL (1.2-4.9); Lymphocytes Percent Auto 28.1 % (20-40); Mean Corpuscular HGB Conc 33.9 g/dl (31.0-35.0); Mean Corpuscular Hemoglobin 30.6 pg (27.0-33.0); Mean Corpuscular Volume 90.3 fL (80.0-98.0); Mean Platelet Volume 11.4 fL (9.4-12.3); Monocytes Absolute Auto 0.4 X10*3/uL (0.1-1.2); Monocytes Percent Auto 5.2 % (2-11); Neutrophils Absolute Auto 4.9 x10*3/uL (2.0-8.3); Neutrophils Percent Auto 65.3 % (45-73); Platelet Count 189 X10*3/uL (160-400); Red Blood Count 3.92 X10*6/uL (4.20-5.50); Red Cell Distribution Width 13.8 % (11.0-16.0); White Blood Count 7.6 X10*3/uL (4.8-10.8)
[2021-03-31 07:58] VITALS: BP 117/77; PULSE 91; RESP 15; TEMP 36.5; O2SAT 97
[2021-03-31 08:04] LABS: Anion Gap 12 (12-20); Blood Urea Nitrogen 19 mg/dL (9-16); Calcium 9.2 mg/dL (8.4-10.2); Carbon Dioxide 25 mmol/L (22-29); Chloride 110 mmol/L (96-108); Creatinine Clr Calc Pharmacy 52.7; Estimated Glomerular Filt Rate > 60; Glucose Random 92 mg/dL (60-115); Potassium 3.4 mmol/L (3.3-5.1); Sodium 144 mmol/L (135-145)
[2021-03-31 09:12] LABS: Procalcitonin < 0.02 ng/mL
[2021-03-31] MEDS: Omeprazole 20 MG CAPSULE.DR PO (09:38)
[2021-03-31] MEDS: Apixaban 2.5 MG TABLET PO ×2 (09:38→20:17)
[2021-03-31] MEDS: Metoprolol Tartrate 100 MG TABLET PO ×2 (09:38→20:17)
[2021-03-31] MEDS: Doxycycline Hyclate 100 MG in 0.9 % Sodium Chloride 250 ML 166.67 MG IV ×2 (09:38→21:01)
--- NOTE | 2021-03-31 09:40 | PC.NURSE ---
pt resting in the stretcher awake, pt presents confused, only oriented to self, not sure pt's baseline, pt denies pain, pt medicated with her morning medications
[2021-03-31] MEDS: Digoxin 0.125 MG TABLET PO (09:45)
--- NOTE | 2021-03-31 11:06 | PC.NURSE ---
pt going to ct
--- NOTE | 2021-03-31 11:16 | MHC.CM.PN ---
Patient is described as, pleasantly confused; CM spoke with Daughter/HCP/Katia @ [phone]. Patient lives in a house with her Daughter/HCP/Katia and she uses a walker to assist with mobility. Home/new [facility] referral is the goal and CM has initiated and will follow for dc planning. IMM addressed with Katia and the original will be mailed certified to her and a copy has been placed on the chart. PCP is Dr. Lazara Oneill and Patient has received [employer] vax X3.
[2021-03-31] MEDS: Dextrose 5 % and 0.45 % NaCl 1,000 ML 95 ML IVCONT ×2 (11:37→22:57)
[2021-03-31 11:59] LABS: Adenovirus PCR Not Detected (Not Detect.); Bordetella parapertussis PCR Not Detected (Not Detect.); Bordetella pertussis PCR Not Detected (Not Detect.); Chlamydia pneumoniae PCR Not Detected (Not Detect.); Coronavirus 229E PCR Not Detected (Not Detect.)
[2021-03-31 12:00] LABS: Coronavirus HKU1 PCR Not Detected (Not Detect.); Coronavirus NL63 PCR Not Detected (Not Detect.); Coronavirus OC43 PCR Not Detected (Not Detect.); Human metapneumovirus PCR Not Detected (Not Detect.); Influenza A PCR Not Detected (Not Detect.); Influenza B PCR Not Detected (Not Detect.); Mycoplasma pneumoniae PCR Not Detected (Not Detect.); Parainfluenza 1 PCR Not Detected (Not Detect.); Parainfluenza 2 PCR Not Detected (Not Detect.); Parainfluenza 3 PCR Not Detected (Not Detect.); Parainfluenza 4 PCR Not Detected (Not Detect.); RSV PCR Not Detected (Not Detect.); Rhino/Enterovirus PCR Not Detected (Not Detect.); SARS-CoV-2 PCR Not Detected (Not Detect.)
--- NOTE | 2021-03-31 12:28 | P.PNIM_ITS ---
Subjective Subjective Date of Service: 03/31/21 Interval History: Feels very weak/tired. No chest pain. Not hypoxic. Non-productive cough. Review of Systems Review of Systems: Yes all other systems are reviewed and are negative Physical Exam Verdana 4l Vital Signs: Verdana 4d Verdana 4d Vital Signs: Verdana 4d Verdana 4Bd Last Vital Signs Verdana 4d Emergency Department Rn New 4d Emergency Department Rn New 4d Temp 97.7 F 03/31/21 07:58 Emergency Department Rn New 4d Pulse 91 03/31/21 07:58 Emergency Department Rn New 4d Resp 15 03/31/21 07:58 BP 117/77 03/31/21 07:58 Pulse Ox 97 03/31/21 07:58 BMI result Body Mass Index 20.6 Gen: tired but answers most questions appropriately HEENT: sclera anicteric, dry mucus membranes Neck: supple Lungs: diminished air entry at left base Heart: irregular, no murmurs Abd: soft, non-tender, non-distended Ext: no edema Skin: warm/well-perfused Neuro: oriented to self, no focal findings Psych: appropriate affect Objective Data Active Medications Acetaminophen (Acetaminophen 325 Mg Tablet) 650 mg PO Q6H PRN PRN Reason: Pain, Mild (Pain Scale 1-3) Alprazolam (Alprazolam 0.5 Mg Tablet) 0.5 mg PO BID PRN PRN Reason: Anxiety Apixaban (Apixaban 2.5 Mg Tablet) 2.5 mg PO BID [facility] Last Admin: 03/31/21 09:38 Dose: 2.5 mg Documented by: TAYLER Digoxin (Digoxin 0.125 Mg Tablet) 0.125 mg PO [facility] Last Admin: 03/31/21 09:45 Dose: 0.125 mg Documented by: TAYLER Ceftriaxone Sodium 1 gm/ (Sodium Chloride) 50 mls @ 100 mls/hr IV Q24H [facility] Doxycycline Hyclate 100 mg/ (Sodium Chloride) 250 mls @ 166.67 mls/hr IV Q12H [facility] Last Infusion: 03/31/21 11:07 Dose: 0 mls/hr Documented by: TAYLER Dextrose/Sodium Chloride (D51/2ns) 1,000 mls @ 95 mls/hr IVCONT .[id number] [facility] Last Admin: 03/31/21 11:37 Dose: 95 mls/hr Documented by: TAYLER Metoprolol Tartrate (Metoprolol Tartrate 100 Mg Tablet) 100 mg PO BID [facility]; Protocol Last Admin: 03/31/21 09:38 Dose: 100 mg Documented by: TAYLER Omeprazole (Omeprazole 20 Mg Capsule.Dr) 20 mg PO DAILY [facility] Last Admin: 03/31/21 09:38 Dose: 20 mg Documented by: TAYLER Pharmacy Consult (Consult Rx Perform Med Rec) 1 each MISCELLANE ONCE PRN PRN Reason: Consult order Senna (Sennosides 8.6 Mg Tablet) 17.2 mg PO BEDTIME PRN PRN Reason: Constipation Sodium Chloride (0.9 % Sodium Chloride Flush 3 Ml Syringe) 3 ml IVFLUSH QSHIFT [facility] Last Admin: 03/31/21 09:38 Dose: 3 ml Documented by: TAYLER Trazodone HCl (Trazodone Hcl 50 Mg Tablet) 50 mg PO BEDTIME PRN PRN Reason: insomnia Labs CBC & Chem 7: 03/31/21 07:18 03/31/21 07:18 Labs: Laboratory Results - last 24 hr 03/30/21 03/30/21 03/30/21 17:45 17:45 17:45 MCV 90.6 MCH 30.4 MCHC 33.6 RDW 13.9 Plt Count 259 MPV 11.6 Immature Gran % (Auto) 0.2 Neut % (Auto) 62.7 Lymph % (Auto) 30.1 [place] % (Auto) 5.4 Eos % (Auto) 1.1 Baso % (Auto) 0.5 Lymph # (Auto) 2.5 [place] # (Auto) 0.4 Eos # (Auto) 0.1 Baso # (Auto) 0.0 Abs Immat Gran (auto) 0.02 Absolute Neuts (auto) 5.1 Absolute Nucleated RBC 0.000 Nucleated RBC % (auto) 0.0 VBG pH VBG pCO2 VBG pO2 VBG HCO3 VBG O2 Saturation VBG Base Excess Anion Gap Estim Creat Clear Calc Estimated GFR Random Glucose Lactic Acid 1.1 Calcium Total Bilirubin AST ALT Alkaline Phosphatase Total Protein Albumin Lipase Procalcitonin Urine Color YELLOW Urine Appearance CLEAR Urine pH 6.0 Ur Specific [place] 1.025 Urine Protein TRACE Urine Glucose (UA) NEG Urine Ketones NEG Urine Blood NEG Urine Nitrite NEG Ur Leukocyte Esterase NEG Digoxin Respiratory Panel Yi Adenovirus (Rapid PCR) B.pert (TEM-PCR) B.parapertussis DNA PCR C. pneumoniae DNA (PCR) Coronavirus OC43 (PCR) Coronavirus HKU1 (PCR) Coronavirus 229E (PCR) COVID-19 (KYLEE) COVID-19 Clin Com Coronavirus NL63 (PCR) Human Metapneumovir PCR Influenza A (RT-PCR) Influenza B (RT-PCR) M. pneumoniae (PCR) Parainfluenza 1 (PCR) Parainfluenza 2 (PCR) Parainfluenza 3 (PCR) Parainfluenza 4 (PCR) RSV (PCR) Entero/Rhino (PCR) SARS-CoV-2 RNA (RT-PCR) 03/30/21 03/30/21 03/30/21 17:46 18:17 21:21 MCV MCH MCHC RDW Plt Count MPV Immature Gran % (Auto) Neut % (Auto) Lymph % (Auto) [place] % (Auto) Eos % (Auto) Baso % (Auto) Lymph # (Auto) [place] # (Auto) Eos # (Auto) Baso # (Auto) Abs Immat Gran (auto) Absolute Neuts (auto) Absolute Nucleated RBC Nucleated RBC % (auto) VBG pH VBG pCO2 VBG pO2 VBG HCO3 VBG O2 Saturation VBG Base Excess Anion Gap 14 Estim Creat Clear Calc 38.3 Estimated GFR 54 Random Glucose 100 Lactic Acid Calcium 10.9 H D Total Bilirubin 0.6 AST 19 ALT 24 Alkaline Phosphatase 97 D Total Protein 7.6 Albumin 4.3 Lipase 26 Procalcitonin Urine Color Urine Appearance Urine pH Ur Specific [place] Urine Protein Urine Glucose (UA) Urine Ketones Urine Blood Urine Nitrite Ur Leukocyte Esterase Digoxin 0.6 L Respiratory Panel Yi Adenovirus (Rapid PCR) B.pert (TEM-PCR) B.parapertussis DNA PCR C. pneumoniae DNA (PCR) Coronavirus OC43 (PCR) Coronavirus HKU1 (PCR) Coronavirus 229E (PCR) COVID-19 (KYLEE) Negative COVID-19 Clin Com See Note Coronavirus NL63 (PCR) Human Metapneumovir PCR Influenza A (RT-PCR) Influenza B (RT-PCR) M. pneumoniae (PCR) Parainfluenza 1 (PCR) Parainfluenza 2 (PCR) Parainfluenza 3 (PCR) Parainfluenza 4 (PCR) RSV (PCR) Entero/Rhino (PCR) SARS-CoV-2 RNA (RT-PCR) 03/30/21 03/31/21 03/31/21 21:23 07:18 07:18 MCV 90.3 MCH 30.6 MCHC 33.9 RDW 13.8 Plt Count 189 D MPV 11.4 Immature Gran % (Auto) 0.4 Neut % (Auto) 65.3 Lymph % (Auto) 28.1 [place] % (Auto) 5.2 Eos % (Auto) 0.7 Baso % (Auto) 0.3 Lymph # (Auto) 2.1 [place] # (Auto) 0.4 Eos # (Auto) 0.1 Baso # (Auto) 0.0 Abs Immat Gran (auto) 0.03 Absolute Neuts (auto) 4.9 Absolute Nucleated RBC 0.000 Nucleated RBC % (auto) 0.0 VBG pH 7.40 VBG pCO2 40 VBG pO2 45 VBG HCO3 25 VBG O2 Saturation 70.0 VBG Base Excess 0.5 Anion Gap 12 Estim Creat Clear Calc 52.7 Estimated GFR > 60 Random Glucose 92 Lactic Acid Calcium 9.2 D Total Bilirubin AST ALT Alkaline Phosphatase Total Protein Albumin Lipase Procalcitonin Urine Color Urine Appearance Urine pH Ur Specific [place] Urine Protein Urine Glucose (UA) Urine Ketones Urine Blood Urine Nitrite Ur Leukocyte Esterase Digoxin Respiratory Panel Yi Adenovirus (Rapid PCR) B.pert (TEM-PCR) B.parapertussis DNA PCR C. pneumoniae DNA (PCR) Coronavirus OC43 (PCR) Coronavirus HKU1 (PCR) Coronavirus 229E (PCR) COVID-19 (KYLEE) COVID-19 Clin Com Coronavirus NL63 (PCR) Human Metapneumovir PCR Influenza A (RT-PCR) Influenza B (RT-PCR) M. pneumoniae (PCR) Parainfluenza 1 (PCR) Parainfluenza 2 (PCR) Parainfluenza 3 (PCR) Parainfluenza 4 (PCR) RSV (PCR) Entero/Rhino (PCR) SARS-CoV-2 RNA (RT-PCR) 03/31/21 03/31/21 07:18 09:57 MCV MCH MCHC RDW Plt Count MPV Immature Gran % (Auto) Neut % (Auto) Lymph % (Auto) [place] % (Auto) Eos % (Auto) Baso % (Auto) Lymph # (Auto) [place] # (Auto) Eos # (Auto) Baso # (Auto) Abs Immat Gran (auto) Absolute Neuts (auto) Absolute Nucleated RBC Nucleated RBC % (auto) VBG pH VBG pCO2 VBG pO2 VBG HCO3 VBG O2 Saturation VBG Base Excess Anion Gap Estim Creat Clear Calc Estimated GFR Random Glucose Lactic Acid Calcium Total Bilirubin AST ALT Alkaline Phosphatase Total Protein Albumin Lipase Procalcitonin < 0.02 Urine Color Urine Appearance Urine pH Ur Specific [place] Urine Protein Urine Glucose (UA) Urine Ketones Urine Blood Urine Nitrite Ur Leukocyte Esterase Digoxin Respiratory Panel Yi See Note Adenovirus (Rapid PCR) Not Detected B.pert (TEM-PCR) Not Detected B.parapertussis DNA PCR Not Detected C. pneumoniae DNA (PCR) Not Detected Coronavirus OC43 (PCR) Not Detected Coronavirus HKU1 (PCR) Not Detected Coronavirus 229E (PCR) Not Detected COVID-19 (KYLEE) COVID-19 Clin Com Coronavirus NL63 (PCR) Not Detected Human Metapneumovir PCR Not Detected Influenza A (RT-PCR) Not Detected Influenza B (RT-PCR) Not Detected M. pneumoniae (PCR) Not Detected Parainfluenza 1 (PCR) Not Detected Parainfluenza 2 (PCR) Not Detected Parainfluenza 3 (PCR) Not Detected Parainfluenza 4 (PCR) Not Detected RSV (PCR) Not Detected Entero/Rhino (PCR) Not Detected SARS-CoV-2 RNA (RT-PCR) Not Detected Assessment and Plan (1) Pneumonia: Status: Acute Plan hospital d#2 80yo F with AF, chronic HFpEF, HTN, history of ocular melanoma presenting with confusion and cough, admitted for encephalopathy and pneumonia # pneumonia - continue ceftriaxone + doxycycline d#2. PCT low. follow BCx and send urinary antigens for Legionella + pneumococcus. RVP negative. CT chest. # toxic-metabolic encephalopathy - likely due to infection, has occured in past with UTI/bacteremia # HTN # chronic HFpEF - continue metoprolol; amlodipine held # AF - continue metoprolol + digoxin + apixaban # GERD - continue PPI # anxiety - prn trazodone + prn alprazolam # VTE ppx - apixaban Quality Stroke Does the patient have a stroke diagnosis?: No VTE Prior VTE?: No VTE Risk Level:: Medical - moderate - high VTE Device Contraindication: Treatment Not Indicated VTE Drug Contraindication: N/A - Med Ordered
--- NOTE | 2021-03-31 12:51 | P.CDIC_ITS ---
CDI Concurrent Query Documentation Clarification: PHYSICIAN'S DOCUMENTATION REQUEST Date of Query: 03/31/21 1252 Patient Name: Tereza Joe Admit Date: 03/30/21 Dear Doctor, A review of the medical record indicates additional documentation may be needed. Please review below and update the documentation accordingly. Clinical Indicators: Verdana 4Bd Risk Factors/Clinical Indicators/Treatments Verdana 4d H&P: 2/3 - Atrial fibrillation - rate controlled, continue Eliquis. Atrial fibrillation w controlled ventricle rate. If possible, please provide further specificity regarding atrial fibrillation, such as: * Paroxysmal atrial fibrillation * Persistent atrial fibrillation * Long lasting persistent atrial fibrillation * Chronic or Permanent atrial fibrillation * Other (please specify) * Unable to determine Use of terms such as suspected, likely, concern for, or probable (associated with a specific diagnosis that is being evaluated, monitored, or treated as if it exists) are acceptable and can be coded in the inpatient setting, when documented at the time of discharge. Thank you, Bri Mccormack [facility], CDIS Extension: [phone] Please use your independent medical judgment in providing your response. THIS QUERY IS PART OF THE PERMANENT MEDICAL RECORD Provider Response: Other Other Diagnosis: persistent AF
--- NOTE | 2021-03-31 12:51 | MHC.CDI.CONC ---
CDI Concurrent Query Documentation Clarification: PHYSICIAN'S DOCUMENTATION REQUEST Date of Query: 03/31/21 1252 Patient Name: Tereza Joe Admit Date: 03/30/21 Dear Doctor, A review of the medical record indicates additional documentation may be needed. Please review below and update the documentation accordingly. Clinical Indicators: Risk Factors/Clinical Indicators/Treatments H&P: 2/3 - Atrial fibrillation - rate controlled, continue Eliquis. Atrial fibrillation w controlled ventricle rate. If possible, please provide further specificity regarding atrial fibrillation, such as: Paroxysmal atrial fibrillation Persistent atrial fibrillation Long lasting persistent atrial fibrillation Chronic or Permanent atrial fibrillation Other (please specify) Unable to determine Use of terms such as suspected, likely, concern for, or probable (associated with a specific diagnosis that is being evaluated, monitored, or treated as if it exists) are acceptable and can be coded in the inpatient setting, when documented at the time of discharge. Thank you, Bri Mccormack [facility], CDIS Extension: [phone] Please use your independent medical judgment in providing your response. THIS QUERY IS PART OF THE PERMANENT MEDICAL RECORD Provider Response: Other Other Diagnosis: persistent AF
[2021-03-31 16:00] VITALS: BP 160/90; PULSE 80; RESP 18; TEMP 37; O2SAT 98
[2021-03-31] MEDS: ALPRAZolam 0.5 MG TABLET PO (19:10)
[2021-03-31] MEDS: cefTRIAXone sodium 1 GM in 0.9 % Sodium Chloride 50 ML IV (20:20)
[2021-03-31 20:21] VITALS: BP 146/81; PULSE 98; RESP 20
--- NOTE | 2021-03-31 20:47 | PC.NURSE ---
PATIENT REFUSED MRI
[2021-03-31 23:55] VITALS: BP 125/57; PULSE 70; RESP 16; TEMP 36.7; O2SAT 98
[2021-04-01 06:28] LABS: Hematocrit 36.8 % (37.0-47.0); Hemoglobin 12.4 g/dl (12.0-16.0); Mean Corpuscular HGB Conc 33.7 g/dl (31.0-35.0); Mean Corpuscular Hemoglobin 30.3 pg (27.0-33.0); Mean Platelet Volume 11.5 fL (9.4-12.3); Platelet Count 187 X10*3/uL (160-400); Red Blood Count 4.09 X10*6/uL (4.20-5.50); Red Cell Distribution Width 13.6 % (11.0-16.0); White Blood Count 7.2 X10*3/uL (4.8-10.8)
[2021-04-01 06:45] LABS: Anion Gap 9 (12-20); Blood Urea Nitrogen 10 mg/dL (9-16); Calcium 8.8 mg/dL (8.4-10.2); Carbon Dioxide 25 mmol/L (22-29); Chloride 110 mmol/L (96-108); Creatinine Clr Calc Pharmacy 56.6; Estimated Glomerular Filt Rate > 60; Glucose Random 124 mg/dL (60-115); Potassium 3.1 mmol/L (3.3-5.1); Sodium 141 mmol/L (135-145)
[2021-04-01 07:59] LABS: Magnesium 1.6 mg/dL (1.6-2.6)
[2021-04-01 08:00] VITALS: BP 138/74; PULSE 80; RESP 16; TEMP 36.4; O2SAT 98
[2021-04-01] MEDS: Metoprolol Tartrate 100 MG TABLET PO ×2 (08:06→20:47)
[2021-04-01] MEDS: Apixaban 2.5 MG TABLET PO ×2 (08:06→20:47)
[2021-04-01] MEDS: Omeprazole 20 MG CAPSULE.DR PO (08:06)
[2021-04-01] MEDS: ALPRAZolam 0.5 MG TABLET PO (08:07)
[2021-04-01] MEDS: Lidocaine 4 % Patch ADH..PATCH 1 PATCH TRANSDERMA (08:18)
[2021-04-01] MEDS: Potassium Chloride/H20 10 MEQ/100 ML PIGGYBACK 100 MEQ IV ×4 (08:24→11:54)
--- NOTE | 2021-04-01 09:55 | P.PNIM_ITS ---
Subjective Subjective Date of Service: 04/01/21 Interval History: More awake Moderate-severe mid-back pain No further cough Review of Systems Review of Systems: Yes all other systems are reviewed and are negative Physical Exam Verdana 4l Vital Signs: Verdana 4d Verdana 4d Vital Signs: Verdana 4d Verdana 4Bd Last Vital Signs Verdana 4d Bindery Machine Operator New 4d Bindery Machine Operator New 4d Temp 97.6 F 04/01/21 08:00 Bindery Machine Operator New 4d Pulse 80 04/01/21 08:00 Bindery Machine Operator New 4d Resp 16 04/01/21 08:00 BP 138/74 04/01/21 08:00 Pulse Ox 98 04/01/21 08:00 BMI result Body Mass Index 20.6 Gen: tired but answers most questions appropriately HEENT: sclera anicteric, dry mucus membranes Neck: supple, kyhotic Lungs: clear bilaterally Heart: irregular, no murmurs Abd: soft, non-tender, non-distended Ext: no edema Skin: warm/well-perfused Neuro: oriented to self, no focal findings Psych: appropriate affect Objective Data Active Medications Acetaminophen (Acetaminophen 325 Mg Tablet) 650 mg PO Q6H PRN PRN Reason: Pain, Mild (Pain Scale 1-3) Alprazolam (Alprazolam 0.5 Mg Tablet) 0.5 mg PO BID PRN PRN Reason: Anxiety Last Admin: 04/01/21 08:07 Dose: 0.5 mg Documented by: MAUREEN Apixaban (Apixaban 2.5 Mg Tablet) 2.5 mg PO BID [facility] Last Admin: 04/01/21 08:06 Dose: 2.5 mg Documented by: MAUREEN Calcitonin [place] (Calcitonin,[place],Synth Nasal 3.7 Ml Bottle) 1 spray NOSTR ILALT DAILY [facility] Digoxin (Digoxin 0.125 Mg Tablet) 0.125 mg PO [facility] Last Admin: 03/31/21 09:45 Dose: 0.125 mg Documented by: TAYLER Ceftriaxone Sodium 1 gm/ (Sodium Chloride) 50 mls @ 100 mls/hr IV Q24H [facility] Last Infusion: 03/31/21 20:59 Dose: 0 mls/hr Documented by: BENEDICT Doxycycline Hyclate 100 mg/ (Sodium Chloride) 250 mls @ 166.67 mls/hr IV Q12H [facility] Last Infusion: 03/31/21 22:52 Dose: 0 mls/hr Documented by: BENEDICT Dextrose/Sodium Chloride (D51/2ns) 1,000 mls @ 95 mls/hr IVCONT .[id number] [facility] Last Infusion: 04/01/21 09:50 Dose: 0 mls/hr Documented by: MAUREEN Potassium Chloride () 10 meq in 100 mls @ 100 mls/hr IV Q1H [facility] Stop: 04/01/21 11:44 Last Admin: 04/01/21 09:49 Dose: 100 mls/hr Documented by: MAUREEN Lidocaine (Lidocaine 4 % Patch Adh..Patch) 1 patch TRANSDERMA DAILY [facility]; P rotocol Last Admin: 04/01/21 08:18 Dose: 1 patch Documented by: MAUREEN Metoprolol Tartrate (Metoprolol Tartrate 100 Mg Tablet) 100 mg PO BID [facility]; Protocol Last Admin: 04/01/21 08:06 Dose: 100 mg Documented by: MAUREEN Omeprazole (Omeprazole 20 Mg Capsule.Dr) 20 mg PO DAILY [facility] Last Admin: 04/01/21 08:06 Dose: 20 mg Documented by: MAUREEN Pharmacy Consult (Consult Rx Perform Med Rec) 1 each MISCELLANE ONCE PRN PRN Reason: Consult order Senna (Sennosides 8.6 Mg Tablet) 17.2 mg PO BEDTIME PRN PRN Reason: Constipation Sodium Chloride (0.9 % Sodium Chloride Flush 3 Ml Syringe) 3 ml IVFLUSH QSHIFT [facility] Last Admin: 04/01/21 07:33 Dose: Not Given Documented by: MAUREEN Non-Admin Reason: IV Running Trazodone HCl (Trazodone Hcl 50 Mg Tablet) 50 mg PO BEDTIME PRN PRN Reason: insomnia Labs CBC & Chem 7: 04/01/21 06:09 04/01/21 06:09 Labs: Laboratory Results - last 24 hr 03/31/21 04/01/21 04/01/21 09:57 06:09 06:09 MCV 90.0 MCH 30.3 MCHC 33.7 RDW 13.6 Plt Count 187 MPV 11.5 Absolute Nucleated RBC 0.000 Nucleated RBC % (auto) 0.0 Anion Gap 9 L Estim Creat Clear Calc 56.6 Estimated GFR > 60 Random Glucose 124 H Calcium 8.8 Magnesium 1.6 Respiratory Panel Yi See Note Adenovirus (Rapid PCR) Not Detected B.pert (TEM-PCR) Not Detected B.parapertussis DNA PCR Not Detected C. pneumoniae DNA (PCR) Not Detected Coronavirus OC43 (PCR) Not Detected Coronavirus HKU1 (PCR) Not Detected Coronavirus 229E (PCR) Not Detected Coronavirus NL63 (PCR) Not Detected Human Metapneumovir PCR Not Detected Influenza A (RT-PCR) Not Detected Influenza B (RT-PCR) Not Detected M. pneumoniae (PCR) Not Detected Parainfluenza 1 (PCR) Not Detected Parainfluenza 2 (PCR) Not Detected Parainfluenza 3 (PCR) Not Detected Parainfluenza 4 (PCR) Not Detected RSV (PCR) Not Detected Entero/Rhino (PCR) Not Detected SARS-CoV-2 RNA (RT-PCR) Not Detected Impressions Chest CT 03/31/21 11:54 IMPRESSION: 1. No focal consolidation or pleural effusions. Radiographic findings appear to represent summation of overlapping structures including pleura and pericardium. Mild chronic linear atelectasis/scarring. 2. Interval development of greater than 80% anterior compression deformity of T9. There is associated narrowing of the spinal canal at this level as detailed above. Further evaluation with thoracic spine MRI is recommended to better assess the spinal cord. Microbiology Microbiology Results: Microbiology 03/30/21 17:45 Blood Culture - Preliminary Blood - Venous No growth after 24 hours. 03/30/21 17:45 Blood Culture - Preliminary Blood - Venous No growth after 24 hours. Assessment and Plan (1) Compression fracture of T9 vertebra: Status: Acute Assessment and Plan: hospital d#3 80yo F with AF, chronic HFpEF, HTN, history of ocular melanoma presenting with confusion and cough, admitted for encephalopathy and initial impression of pneumonia, though ruled out radiographically # pneumonia, likely not - recheck PCT tomorrow and if low, will d/c ceftriaonxe + doxycycline [on d#3] # T9 compression fracture - lidocaine patch, calcitonin - MRI T-spine # encephalopathy - ?dementia. check B12 + TSH # hypoK - replete IV, recheck in am # HTN # chronic HFpEF - continue metoprolol + amlodipine # AF - continue metoprolol + digoxin + apixaban # GERD - continue PPI # anxiety - prn trazodone + prn alprazolam # VTE ppx - apixaban Quality Stroke Does the patient have a stroke diagnosis?: No VTE Prior VTE?: No VTE Risk Level:: Medical - moderate - high VTE Device Contraindication: Treatment Not Indicated VTE Drug Contraindication: N/A - Med Ordered
[2021-04-01] MEDS: amLODIPine Besylate 5 MG TABLET PO (11:01)
[2021-04-01 11:59] LABS: Vitamin B12 361 pg/mL (200-900)
[2021-04-01] MEDS: Doxycycline Hyclate 100 MG in 0.9 % Sodium Chloride 250 ML IV (13:19)
[2021-04-01] MEDS: 0.9 % Sodium Chloride Flush 3 ML SYRINGE IVFLUSH (15:07)
[2021-04-01] MEDS: Dextrose 5 % and 0.45 % NaCl 1,000 ML 95 ML IVCONT (15:07)
[2021-04-01 15:33] VITALS: BP 134/68; PULSE 61; RESP 18; TEMP 36.1; O2SAT 98
[2021-04-01] MEDS: Acetaminophen 325 MG TABLET 650 MG PO (16:20)
[2021-04-01] MEDS: Atorvastatin Calcium 40 MG TABLET PO (20:47)
[2021-04-01] MEDS: cefTRIAXone sodium 1 GM in 0.9 % Sodium Chloride 50 ML IV (21:03)
[2021-04-01] MEDS: Doxycycline Hyclate 100 MG in 0.9 % Sodium Chloride 250 ML 166.67 MG IV (21:12)
[2021-04-01 23:18] VITALS: BP 128/77; PULSE 66; RESP 20; TEMP 36.7; O2SAT 96
[2021-04-02] MEDS: Dextrose 5 % and 0.45 % NaCl 1,000 ML 95 ML IVCONT (05:54)
[2021-04-02 07:07] LABS: Anion Gap 11 (12-20); Blood Urea Nitrogen 7 mg/dL (9-16); Calcium 8.8 mg/dL (8.4-10.2); Carbon Dioxide 23 mmol/L (22-29); Chloride 111 mmol/L (96-108); Creatinine Clr Calc Pharmacy 62.2; Estimated Glomerular Filt Rate > 60; Glucose Random 113 mg/dL (60-115); Potassium 3.5 mmol/L (3.3-5.1); Sodium 141 mmol/L (135-145)
[2021-04-02 07:24] LABS: Procalcitonin 0.02 ng/mL
[2021-04-02 07:32] VITALS: BP 156/74; PULSE 93; RESP 17; TEMP 36.4; O2SAT 98
[2021-04-02] MEDS: 0.9 % Sodium Chloride Flush 3 ML SYRINGE IVFLUSH ×2 (07:54→18:05)
[2021-04-02] MEDS: ALPRAZolam 0.5 MG TABLET PO ×2 (07:55→19:51)
[2021-04-02] MEDS: Lidocaine 4 % Patch ADH..PATCH 1 PATCH TRANSDERMA (07:55)
[2021-04-02] MEDS: amLODIPine Besylate 5 MG TABLET PO (07:55)
[2021-04-02] MEDS: Calcitonin,Salmon,Synth Nasal 3.7 ML BOTTLE 1 SPRAY NOSTRILALT (07:55)
[2021-04-02] MEDS: Omeprazole 20 MG CAPSULE.DR PO (07:56)
[2021-04-02] MEDS: Apixaban 2.5 MG TABLET PO ×2 (07:56→19:47)
[2021-04-02] MEDS: Metoprolol Tartrate 100 MG TABLET PO ×2 (07:56→19:47)
--- NOTE | 2021-04-02 10:14 | P.PNIM_ITS ---
Subjective Subjective Date of Service: 04/02/21 Interval History: Back pain controlled No cough Review of Systems Review of Systems: Yes all other systems are reviewed and are negative Physical Exam Verdana 4l Vital Signs: Verdana 4d Verdana 4d Vital Signs: Verdana 4d Verdana 4Bd Last Vital Signs Verdana 4d Charter Pilot New 4d Charter Pilot New 4d Temp 97.6 F 04/02/21 07:32 [employer] Pilot New 4d Pulse 93 04/02/21 07:32 [employer] Pilot New 4d Resp 17 04/02/21 07:32 BP 156/74 H 04/02/21 07:32 Pulse Ox 98 04/02/21 07:32 BMI result Body Mass Index 20.6 Gen: tired but answers most questions appropriately HEENT: sclera anicteric, dry mucus membranes Neck: supple, kyhotic Lungs: clear bilaterally Heart: irregular, no murmurs Abd: soft, non-tender, non-distended Ext: no edema Skin: warm/well-perfused Neuro: oriented to self, no focal findings Psych: appropriate affect Objective Data Active Medications Acetaminophen (Acetaminophen 325 Mg Tablet) 650 mg PO Q6H PRN PRN Reason: Pain, Mild (Pain Scale 1-3) Last Admin: 04/01/21 16:20 Dose: 650 mg Documented by: MAUREEN Alprazolam (Alprazolam 0.5 Mg Tablet) 0.5 mg PO BID PRN PRN Reason: Anxiety Last Admin: 04/02/21 07:55 Dose: 0.5 mg Documented by: MAUREEN Amlodipine Besylate (Amlodipine Besylate 5 Mg Tablet) 5 mg PO DAILY [facility]; Protocol Last Admin: 04/02/21 07:55 Dose: 5 mg Documented by: MAUREEN Apixaban (Apixaban 2.5 Mg Tablet) 2.5 mg PO BID [facility] Last Admin: 04/02/21 07:56 Dose: 2.5 mg Documented by: MAUREEN Atorvastatin Calcium (Atorvastatin Calcium 40 Mg Tablet) 40 mg PO BEDTIME [facility] Last Admin: 04/01/21 20:47 Dose: 40 mg Documented by: GEOVANI Calcitonin [place] (Calcitonin,[place],Synth Nasal 3.7 Ml Bottle) 1 spray NOSTRILALT DAILY [facility] Last Admin: 04/02/21 07:55 Dose: 1 spray Documented by: MAUREEN Digoxin (Digoxin 0.125 Mg Tablet) 0.125 mg PO WETH [facility] Last Admin: 03/31/21 09:45 Dose: 0.125 mg Documented by: TAYLER Lidocaine (Lidocaine 4 % Patch Adh..Patch) 1 patch TRANSDERMA DAILY [facility]; Protocol Last Admin: 04/02/21 07:55 Dose: 1 patch Documented by: MAUREEN Metoprolol Tartrate (Metoprolol Tartrate 100 Mg Tablet) 100 mg PO BID [facility]; Protocol Last Admin: 04/02/21 07:56 Dose: 100 mg Documented by: MAUREEN Omeprazole (Omeprazole 20 Mg Capsule.Dr) 20 mg PO DAILY [facility] Last Admin: 04/02/21 07:56 Dose: 20 mg Documented by: MAUREEN Pharmacy Consult (Consult Rx Perform Med Rec) 1 each MISCELLANE ONCE PRN PRN Reason: Consult order Senna (Sennosides 8.6 Mg Tablet) 17.2 mg PO BEDTIME PRN PRN Reason: Constipation Sodium Chloride (0.9 % Sodium Chloride Flush 3 Ml Syringe) 3 ml IVFLUSH QSHIFT [facility] Last Admin: 04/02/21 07:54 Dose: 3 ml Documented by: MAUREEN Trazodone HCl (Trazodone Hcl 50 Mg Tablet) 50 mg PO BEDTIME PRN PRN Reason: insomnia Labs CBC & Chem 7: 04/01/21 06:09 04/02/21 06:35 Labs: Laboratory Results - last 24 hr 04/01/21 04/01/21 04/02/21 06:09 06:09 06:35 Anion Gap 11 L Estim Creat Clear Calc 62.2 Estimated GFR > 60 Random Glucose 113 Calcium 8.8 Vitamin B12 361 Procalcitonin TSH 1.10 04/02/21 06:35 Anion Gap Estim Creat Clear Calc Estimated GFR Random Glucose Calcium Vitamin B12 Procalcitonin 0.02 TSH Microbiology Microbiology Results: Microbiology 03/30/21 17:45 Blood Culture - Preliminary Blood - Venous No growth after 48 hours. 03/30/21 17:45 Blood Culture - Preliminary Blood - Venous No growth after 48 hours. Assessment and Plan (1) Compression fracture of T9 vertebra: Status: Acute Assessment and Plan: hospital d#4 80yo F with AF, chronic HFpEF, HTN, history of ocular melanoma presenting with confusion and cough, admitted for encephalopathy and initial impression of pneumonia, though ruled out radiographically # T9 compression fracture - lidocaine patch, calcitonin - MRI T-spine tomorrow - kyphoplasty if pain not adequately controlled # pneumonia, likely not - PCT low, d/c ceftriaxone + doxycycline # encephalopathy - ?dementia. B12 + TSH normal. CT shows chronic microvascular disease. treat for vascular dementia with statin # hypoK - repleted # HTN # chronic HFpEF - continue metoprolol + amlodipine # AF - continue metoprolol + digoxin + apixaban # GERD - continue PPI # anxiety - prn trazodone + prn alprazolam # VTE ppx - apixaban Quality Stroke Does the patient have a stroke diagnosis?: No VTE Prior VTE?: No VTE Risk Level:: Medical - moderate - high VTE Device Contraindication: Treatment Not Indicated VTE Drug Contraindication: N/A - Med Ordered
[2021-04-02 15:28] VITALS: BP 128/71; PULSE 86; RESP 18; TEMP 36.1; O2SAT 99
[2021-04-02 19:26] VITALS: BP 135/88; PULSE 95; RESP 18; TEMP 36.8; O2SAT 96
[2021-04-02] MEDS: Atorvastatin Calcium 40 MG TABLET PO (19:47)
[2021-04-02] MEDS: traZODone HCL 50 MG TABLET PO (19:51)
[2021-04-02 23:29] VITALS: BP 144/73; PULSE 86; RESP 16; TEMP 37.1; O2SAT 97
[2021-04-03] MEDS: 0.9 % Sodium Chloride Flush 3 ML SYRINGE IVFLUSH ×4 (01:36→19:42)
[2021-04-03 07:21] VITALS: BP 126/78; PULSE 84; RESP 18; TEMP 36.8; O2SAT 99
[2021-04-03] MEDS: amLODIPine Besylate 5 MG TABLET PO (08:30)
[2021-04-03] MEDS: Omeprazole 20 MG CAPSULE.DR PO (08:30)
[2021-04-03] MEDS: Metoprolol Tartrate 100 MG TABLET PO ×2 (08:30→19:43)
[2021-04-03] MEDS: Apixaban 2.5 MG TABLET PO ×2 (08:30→19:42)
[2021-04-03] MEDS: Calcitonin,Salmon,Synth Nasal 3.7 ML BOTTLE 1 SPRAY NOSTRILALT (08:31)
[2021-04-03] MEDS: Lidocaine 4 % Patch ADH..PATCH 1 PATCH TRANSDERMA (08:31)
--- NOTE | 2021-04-03 11:51 | P.PNIM_ITS ---
Subjective Subjective Date of Service: 04/03/21 Interval History: Back pain controlled No weakness/numbness of extremities No cough/dyspnea/chest pain Review of Systems Review of Systems: Yes all other systems are reviewed and are negative Physical Exam Verdana 4l Vital Signs: Verdana 4d Verdana 4d Vital Signs: Verdana 4d Verdana 4Bd Last Vital Signs Verdana 4d Apartment Maintenance Worker New 4d Apartment Maintenance Worker New 4d Temp 98.2 F 04/03/21 07:21 Apartment Maintenance Worker New 4d Pulse 84 04/03/21 07:21 Apartment Maintenance Worker New 4d Resp 18 04/03/21 07:21 BP 126/78 04/03/21 07:21 Pulse Ox 99 04/03/21 07:21 BMI result Body Mass Index 20.6 Gen:NAD HEENT: sclera anicteric, dry mucus membranes Neck: supple, kyhotic Lungs: clear bilaterally Heart: irregular, no murmurs Abd: soft, non-tender, non-distended Ext: no edema Skin: warm/well-perfused Neuro: oriented to self, no focal findings Psych: appropriate affect Objective Data Active Medications Acetaminophen (Acetaminophen 325 Mg Tablet) 650 mg PO Q6H PRN PRN Reason: Pain, Mild (Pain Scale 1-3) Last Admin: 04/01/21 16:20 Dose: 650 mg Documented by: MAUREEN Alprazolam (Alprazolam 0.5 Mg Tablet) 0.5 mg PO BID PRN PRN Reason: Anxiety Last Admin: 04/02/21 19:51 Dose: 0.5 mg Documented by: DIMAS Amlodipine Besylate (Amlodipine Besylate 5 Mg Tablet) 5 mg PO DAILY [facility]; Protocol Last Admin: 04/03/21 08:30 Dose: 5 mg Documented by: FREDDIE Apixaban (Apixaban 2.5 Mg Tablet) 2.5 mg PO BID [facility] Last Admin: 04/03/21 08:30 Dose: 2.5 mg Documented by: FREDDIE Atorvastatin Calcium (Atorvastatin Calcium 40 Mg Tablet) 40 mg PO BEDTIME [facility] Last Admin: 04/02/21 19:47 Dose: 40 mg Documented by: DIMAS Calcitonin [place] (Calcitonin,[place],Synth Nasal 3.7 Ml Bottle) 1 spray NOSTRILALT DAILY [facility] Last Admin: 04/03/21 08:31 Dose: 1 spray Documented by: FREDDIE Digoxin (Digoxin 0.125 Mg Tablet) 0.125 mg PO [facility] Last Admin: 03/31/21 09:45 Dose: 0.125 mg Documented by: TAYLER Lidocaine (Lidocaine 4 % Patch Adh..Patch) 1 patch TRANSDERMA DAILY [facility]; Protocol Last Admin: 04/03/21 08:31 Dose: 1 patch Documented by: FREDDEI Metoprolol Tartrate (Metoprolol Tartrate 100 Mg Tablet) 100 mg PO BID [facility]; Protocol Last Admin: 04/03/21 08:30 Dose: 100 mg Documented by: FREDDIE Omeprazole (Omeprazole 20 Mg Capsule.Dr) 20 mg PO DAILY [facility] Last Admin: 04/03/21 08:30 Dose: 20 mg Documented by: FREDDIE Pharmacy Consult (Consult Rx Perform Med Rec) 1 each MISCELLANE ONCE PRN PRN Reason: Consult order Senna (Sennosides 8.6 Mg Tablet) 17.2 mg PO BEDTIME PRN PRN Reason: Constipation Sodium Chloride (0.9 % Sodium Chloride Flush 3 Ml Syringe) 3 ml IVFLUSH QSHIFT [facility] Last Admin: 04/03/21 08:30 Dose: 3 ml Documented by: FREDDIE Trazodone HCl (Trazodone Hcl 50 Mg Tablet) 50 mg PO BEDTIME PRN PRN Reason: insomnia Last Admin: 04/02/21 19:51 Dose: 50 mg Documented by: DIMAS Labs CBC & Chem 7: 04/01/21 06:09 04/02/21 06:35 Assessment and Plan (1) Compression fracture of T9 vertebra: Status: Acute Assessment and Plan: hospital d#5 80yo F with AF, chronic HFpEF, HTN, history of ocular melanoma presenting with confusion and cough, admitted for encephalopathy and initial impression of pneumonia, though ruled out radiographically # T9 compression fracture - lidocaine patch, calcitonin - MRI T-spine pending - PT consult after MRI - kyphoplasty if pain not adequately controlled # pneumonia, likely not - PCT low, d/'ed ceftriaxone + doxycycline # encephalopathy - ?dementia. B12 + TSH normal. CT shows chronic microvascular disease. treat for vascular dementia with statin # hypoK - repleted # HTN # chronic HFpEF - continue metoprolol + amlodipine # AF - continue metoprolol + digoxin + apixaban # GERD - continue PPI # anxiety - prn trazodone + prn alprazolam # VTE ppx - apixaban Quality Stroke Does the patient have a stroke diagnosis?: No VTE Prior VTE?: No VTE Risk Level:: Medical - moderate - high VTE Device Contraindication: Treatment Not Indicated VTE Drug Contraindication: N/A - Med Ordered
--- NOTE | 2021-04-03 13:07 | MHC.CM.PN ---
EMR REVIEWED, PT HAS COMPRESSION FX OF T9 , MRI AND PT EVAL PENDING, ANTIC PT WILL D/C LATER TODAY VS TOMORROW 04/04/21. DCP: HOME W/NEW [facility] FOR SN AND ?HOME PT, FAMILY FOR TRANSPORT.
[2021-04-03 15:15] VITALS: BP 133/73; PULSE 78; RESP 18; TEMP 36.5; O2SAT 97
[2021-04-03] MEDS: Atorvastatin Calcium 40 MG TABLET PO (19:42)
[2021-04-03 22:37] LABS: Legionella Ag Urine Not Detected (Not Detected)
[2021-04-03 23:32] VITALS: BP 162/98; PULSE 100; RESP 18; TEMP 36.7; O2SAT 96
[2021-04-04 00:37] LABS: Strep Pneumo Ag urine Not Detected (Not Detected)
[2021-04-04] MEDS: Lidocaine 4 % Patch ADH..PATCH 1 PATCH TRANSDERMA (07:41)
[2021-04-04] MEDS: Metoprolol Tartrate 100 MG TABLET PO ×2 (07:42→19:39)
[2021-04-04] MEDS: Omeprazole 20 MG CAPSULE.DR PO (07:42)
[2021-04-04] MEDS: ALPRAZolam 0.5 MG TABLET PO ×2 (07:42→19:39)
[2021-04-04 07:43] VITALS: BP 121/72; PULSE 98; RESP 17; TEMP 36.8; O2SAT 96
[2021-04-04] MEDS: 0.9 % Sodium Chloride Flush 3 ML SYRINGE IVFLUSH ×3 (07:43→19:39)
[2021-04-04] MEDS: Calcitonin,Salmon,Synth Nasal 3.7 ML BOTTLE 1 SPRAY NOSTRILALT (07:43)
[2021-04-04] MEDS: amLODIPine Besylate 5 MG TABLET PO (07:43)
[2021-04-04] MEDS: Apixaban 2.5 MG TABLET PO (07:43)
[2021-04-04] MEDS: Digoxin 0.125 MG TABLET PO (07:45)
--- NOTE | 2021-04-04 08:59 | P.PNIM_ITS ---
Subjective Subjective Date of Service: 04/04/21 Interval History: c/o moderate thoracic pain but per pt's daughter, she has been deliberately minimizing her pain report because she thinks it will help get a procedure sooner MRI shows severe biconcave fracture with retropulsion causing canal stenosis/cord deformity but no signal changes Review of Systems Review of Systems: Yes all other systems are reviewed and are negative Physical Exam Vital Signs: Vital Signs: Last Vital Signs Temp 98.2 F 04/04/21 07:43 Pulse 98 04/04/21 07:43 Resp 17 04/04/21 07:43 BP 121/72 04/04/21 07:43 Pulse Ox 96 04/04/21 07:43 BMI result Body Mass Index 20.6 Gen:NAD HEENT: sclera anicteric, dry mucus membranes Neck: supple, kyhotic Lungs: clear bilaterally Heart: irregular, no murmurs Abd: soft, non-tender, non-distended Ext: no edema Skin: warm/well-perfused Neuro: oriented to self, no focal findings Psych: appropriate affect Objective Data Active Medications Acetaminophen (Acetaminophen 325 Mg Tablet) 650 mg PO Q6H PRN PRN Reason: Pain, Mild (Pain Scale 1-3) Last Admin: 04/01/21 16:20 Dose: 650 mg Documented by: MAUREEN Alprazolam (Alprazolam 0.5 Mg Tablet) 0.5 mg PO BID PRN PRN Reason: Anxiety Last Admin: 04/04/21 07:42 Dose: 0.5 mg Documented by: DENITA Amlodipine Besylate (Amlodipine Besylate 5 Mg Tablet) 5 mg PO DAILY [facility]; P rotocol Last Admin: 04/04/21 07:43 Dose: 5 mg Documented by: DENITA Atorvastatin Calcium (Atorvastatin Calcium 40 Mg Tablet) 40 mg PO BEDTIME [facility] Last Admin: 04/03/21 19:42 Dose: 40 mg Documented by: DIMAS Calcitonin [place] (Calcitonin,[place],Synth Nasal 3.7 Ml Bottle) 1 spray NOSTRILALT DAILY [facility] Last Admin: 04/04/21 07:43 Dose: 1 spray Documented by: DENITA Digoxin (Digoxin 0.125 Mg Tablet) 0.125 mg PO TUWE [facility] Last Admin: 04/04/21 07:45 Dose: 0.125 mg Documented by: DENITA Lidocaine (Lidocaine 4 % Patch Adh..Patch) 1 patch TRANSDERMA DAILY [facility]; Protocol Last Admin: 04/04/21 07:41 Dose: 1 patch Documented by: DENITA Metoprolol Tartrate (Metoprolol Tartrate 100 Mg Tablet) 100 mg PO BID [facility]; Protocol Last Admin: 04/04/21 07:42 Dose: 100 mg Documented by: DENITA Omeprazole (Omeprazole 20 Mg Capsule.) 20 mg PO DAILY [facility] Last Admin: 04/04/21 07:42 Dose: 20 mg Documented by: DENITA Pharmacy Consult (Consult Rx Perform Med Rec) 1 each MISCELLANE ONCE PRN PRN Reason: Consult order Senna (Sennosides 8.6 Mg Tablet) 17.2 mg PO BEDTIME PRN PRN Reason: Constipation Sodium Chloride (0.9 % Sodium Chloride Flush 3 Ml Syringe) 3 ml IVFLUSH QSHIFT [facility] Last Admin: 04/04/21 07:43 Dose: 3 ml Documented by: DENITA Trazodone HCl (Trazodone Hcl 50 Mg Tablet) 50 mg PO BEDTIME PRN PRN Reason: insomnia Last Admin: 04/02/21 19:51 Dose: 50 mg Documented by: DIMAS Labs CBC & Chem 7: 04/01/21 06:09 04/02/21 06:35 Labs: Laboratory Results - last 24 hr 03/31/21 11:06 Ur L.pneumophila Ag Not Detected Ur Strep pneumoniae Ag Not Detected Assessment and Plan (1) Compression fracture of T9 vertebra: Status: Acute Assessment and Plan: hospital d#6 80yo F with AF, chronic HFpEF, HTN, history of ocular melanoma presenting with confusion and cough, admitted for encephalopathy and initial impression of pneumonia, though ruled out radiographically found to have severe T9 compression fracture with retropulsion and cord defo rmity # severe T9 compression fracture - discussed with IR. unstable fracture with high risk for cord compression. plan kyphoplasty but have to wait 5d due to apixaban. updated pt + family. - pain control: lidocaine patch, calcitonin # pneumonia, not - PCT low, d/'ed ceftriaxone + doxycycline # encephalopathy - ?dementia. B12 + TSH normal. CT shows chronic microvascular disease suggesting possibility of vascular dementia. giving atorvastatin for ASCVD risk prevention # hypoK - repleted # HTN # chronic HFpEF - continue metoprolol + amlodipine # AF - continue metoprolol + digoxin - off apixaban due to planned kyphoplasty # GERD - continue PPI # anxiety - prn trazodone + prn alprazolam # VTE ppx - SCD; d/c apixaban for now Quality Stroke Does the patient have a stroke diagnosis?: No VTE Prior VTE?: No VTE Risk Level:: Medical - moderate - high VTE Device Contraindication: Treatment Not Indicated VTE Drug Contraindication: N/A - Med Ordered
[2021-04-04 15:24] VITALS: BP 137/67; PULSE 88; RESP 17; TEMP 37; O2SAT 96
[2021-04-04] MEDS: Atorvastatin Calcium 40 MG TABLET PO (19:39)
[2021-04-04] MEDS: traZODone HCL 50 MG TABLET PO (19:39)
[2021-04-04 23:44] VITALS: BP 131/62; PULSE 81; RESP 18; TEMP 36.3; O2SAT 96
[2021-04-05 07:46] VITALS: BP 127/61; PULSE 87; RESP 16; TEMP 36.3; O2SAT 96
[2021-04-05] MEDS: Lidocaine 4 % Patch ADH..PATCH 1 PATCH TRANSDERMA (07:59)
[2021-04-05] MEDS: Omeprazole 20 MG CAPSULE.DR PO (08:00)
[2021-04-05] MEDS: Metoprolol Tartrate 100 MG TABLET PO ×2 (08:00→19:53)
[2021-04-05] MEDS: amLODIPine Besylate 5 MG TABLET PO (08:00)
[2021-04-05] MEDS: 0.9 % Sodium Chloride Flush 3 ML SYRINGE IVFLUSH ×3 (08:01→19:55)
[2021-04-05] MEDS: Digoxin 0.125 MG TABLET PO (08:03)
--- NOTE | 2021-04-05 11:38 | MHC.CM.PN ---
EMR REVIEWED, PT HAS UNSTABLE T9 COMPRESSION FX, PT ON BEDREST, ELIQUIS STOPPED 04/04, PT WILL REMAIN INPT AND HAVE KYPHOPLASTY ON SATURDAY AND ANTIC WILL D/C HOME W/[facility] BY Saturday04/11/21. CM WILL CONT TO MONITOR D/C NEEDS.
--- NOTE | 2021-04-05 15:15 | HO.PM.IMPN ---
Subjective Subjective Date of Service: 04/05/21 Interval History: No new events/complaints Review of Systems Review of Systems: Yes all other systems are reviewed and are negative Physical Exam Vital Signs: Vital Signs: Last Vital Signs Temp 97.3 F 04/05/21 07:46 Pulse 87 04/05/21 07:46 Resp 16 04/05/21 07:46 BP 127/61 04/05/21 07:46 Pulse Ox 96 04/05/21 07:46 BMI result Body Mass Index 20.6 Gen:NAD HEENT: sclera anicteric, dry mucus membranes Neck: supple, kyhotic Lungs: clear bilaterally Heart: irregular, no murmurs Abd: soft, non-tender, non-distended Ext: no edema Skin: warm/well-perfused Neuro: oriented to self, no focal findings Psych: appropriate affect Objective Data Active Medications Acetaminophen (Acetaminophen 325 Mg Tablet) 650 mg PO Q6H PRN PRN Reason: Pain, Mild (Pain Scale 1-3) Last Admin: 04/01/21 16:20 Dose: 650 mg Documented by: MAUREEN Amlodipine Besylate (Amlodipine Besylate 5 Mg Tablet) 5 mg PO DAILY [facility]; Protocol Last Admin: 04/05/21 08:00 Dose: 5 mg Documented by: DENITA Atorvastatin Calcium (Atorvastatin Calcium 40 Mg Tablet) 40 mg PO BEDTIME [facility] Last Admin: 04/04/21 19:39 Dose: 40 mg Documented by: YOVANNY Calcitonin [place] (Calcitonin,[place],Synth Nasal 3.7 Ml Bottle) 1 spray NOSTRILALT DAILY [facility] Last Admin: 04/05/21 08:01 Dose: Not Given Documented by: DENITA Non-Admin Reason: Patient Refused Digoxin (Digoxin 0.125 Mg Tablet) 0.125 mg PO WE [facility] Last Admin: 04/05/21 08:03 Dose: 0.125 mg Documented by: DENITA Lidocaine (Lidocaine 4 % Patch Adh..Patch) 1 patch TRANSDERMA DAILY [facility]; Protocol Last Admin: 04/05/21 07:59 Dose: 1 patch Documented by: DENITA Metoprolol Tartrate (Metoprolol Tartrate 100 Mg Tablet) 100 mg PO BID [facility]; Protocol Last Admin: 04/05/21 08:00 Dose: 100 mg Documented by: DENITA Omeprazole (Omeprazole 20 Mg Capsule.) 20 mg PO DAILY [facility] Last Admin: 04/05/21 08:00 Dose: 20 mg Documented by: DENITA Pharmacy Consult (Consult Rx Perform Med Rec) 1 each MISCELLANE ONCE PRN PRN Reason: Consult order Senna (Sennosides 8.6 Mg Tablet) 17.2 mg PO BEDTIME PRN PRN Reason: Constipation Sodium Chloride (0.9 % Sodium Chloride Flush 3 Ml Syringe) 3 ml IVFLUSH QSHIFT [facility] Last Admin: 04/05/21 14:49 Dose: 3 ml Documented by: DENITA Trazodone HCl (Trazodone Hcl 50 Mg Tablet) 50 mg PO BEDTIME PRN PRN Reason: insomnia Last Admin: 04/04/21 19:39 Dose: 50 mg Documented by: YOVANNY Labs CBC & Chem 7: 04/01/21 06:09 04/02/21 06:35 Microbiology Microbiology Results: Microbiology 03/30/21 17:45 Blood Culture - Final Blood - Venous No growth after 5 days. 03/30/21 17:45 Blood Culture - Final Blood - Venous No growth after 5 days. Assessment and Plan (1) Compression fracture of T9 vertebra: Status: Acute Assessment and Plan: hospital d#7 80yo F with AF, chronic HFpEF, HTN, history of ocular melanoma presenting with confusion and cough, admitted for encephalopathy and initial impression of pneumonia, though ruled out radiographically found to have severe T9 compression fracture with retropulsion and cord deformity # severe T9 compression fracture - discussed with IR. unstable fracture with high risk for cord compression. plan kyphoplasty but have to wait 5d due to apixaban. procedure planned for 04/10/21 - pain control: lidocaine patch, calcitonin # pneumonia, not - PCT low, d/'ed ceftriaxone + doxycycline # encephalopathy - ?dementia. B12 + TSH normal. CT shows chronic microvascular disease suggesting possibility of vascular dementia. giving atorvastatin for ASCVD risk prevention # hypoK - repleted # HTN # chronic HFpEF - continue metoprolol + amlodipine # AF - continue metoprolol + digoxin - off apixaban due to planned kyphoplasty # GERD - continue PPI # anxiety - prn trazodone + prn alprazolam # VTE ppx - SCD; d/c apixaban for kyphoplasty Quality Stroke Does the patient have a stroke diagnosis?: No VTE Prior VTE?: No VTE Risk Level:: Medical - moderate - high VTE Device Contraindication: Treatment Not Indicated VTE Drug Contraindication: N/A - Med Ordered
[2021-04-05 15:32] VITALS: BP 144/64; PULSE 93; RESP 15; TEMP 36.6; O2SAT 96
[2021-04-05] MEDS: traZODone HCL 50 MG TABLET PO (19:53)
[2021-04-05] MEDS: Atorvastatin Calcium 40 MG TABLET PO (19:54)
[2021-04-05 23:24] VITALS: BP 121/70; PULSE 86; RESP 17; TEMP 36.3; O2SAT 95
[2021-04-06 08:00] VITALS: BP 110/64; PULSE 64; RESP 14; TEMP 36.6; O2SAT 96
[2021-04-06] MEDS: amLODIPine Besylate 5 MG TABLET PO (08:06)
[2021-04-06] MEDS: Lidocaine 4 % Patch ADH..PATCH 1 PATCH TRANSDERMA (08:06)
[2021-04-06] MEDS: Metoprolol Tartrate 100 MG TABLET PO ×2 (08:06→21:12)
[2021-04-06] MEDS: Omeprazole 20 MG CAPSULE.DR PO (08:06)
[2021-04-06] MEDS: 0.9 % Sodium Chloride Flush 3 ML SYRINGE IVFLUSH ×3 (08:07→23:57)
[2021-04-06] MEDS: Digoxin 0.125 MG TABLET PO (08:10)
[2021-04-06] MEDS: ALPRAZolam 0.5 MG TABLET PO ×2 (10:35→21:12)
--- NOTE | 2021-04-06 10:37 | HO.PM.IMPN ---
Subjective Subjective Date of Service: 04/06/21 Interval History: No acute issues overnnight. Still anxious at baseline Review of Systems Denies CP Denies SOB DeniedN/V/D Pain control adequate with lidoderm patch Physical Exam Vital Signs: Vital Signs: Last Vital Signs Temp 97.9 F 04/06/21 08:00 Pulse 64 04/06/21 08:00 Resp 14 04/06/21 08:00 BP 110/64 04/06/21 08:00 Pulse Ox 96 04/06/21 08:00 BMI result Body Mass Index 20.6 Const: Other: comfortable...NAD Resp: Other: clear A/P. no rales/wheezes Cardio: Other: -S4 +S1/S2 _S3 M/R/G GI: Other: soft NT/ND. NABS x 4 quads Back/Spine/Pelvis: Other: Lidoderm patch on Extrem: Other: no edema bilat Objective Data Active Medications Acetaminophen (Acetaminophen 325 Mg Tablet) 650 mg PO Q6H PRN PRN Reason: Pain, Mild (Pain Scale 1-3) Last Admin: 04/01/21 16:20 Dose: 650 mg Documented by: MAUREEN Alprazolam (Alprazolam 0.5 Mg Tablet) 0.5 mg PO BID [facility] Last Admin: 04/06/21 10:35 Dose: 0.5 mg Documented by: DENITA Amlodipine Besylate (Amlodipine Besylate 5 Mg Tablet) 5 mg PO DAILY [facility]; Protocol Last Admin: 04/06/21 08:06 Dose: 5 mg Documented by: DENITA Atorvastatin Calcium (Atorvastatin Calcium 40 Mg Tablet) 40 mg PO BEDTIME [facility] Last Admin: 04/05/21 19:54 Dose: 40 mg Documented by: YOVANNY Calcitonin [place] (Calcitonin,[place],Synth Nasal 3.7 Ml Bottle) 1 spray NOSTRILALT DAILY [facility] Last Admin: 04/06/21 08:12 Dose: Not Given Documented by: DENITA Non-Admin Reason: Patient Refused Digoxin (Digoxin 0.125 Mg Tablet) 0.125 mg PO [facility] Last Admin: 04/06/21 08:10 Dose: 0.125 mg Documented by: DENITA Lidocaine (Lidocaine 4 % Patch Adh..Patch) 1 patch TRANSDERMA DAILY [facility]; Protocol Last Admin: 04/06/21 08:06 Dose: 1 patch Documented by: DENITA Metoprolol Tartrate (Metoprolol Tartrate 100 Mg Tablet) 100 mg PO BID [facility]; Protocol Last Admin: 04/06/21 08:06 Dose: 100 mg Documented by: DENITA Omeprazole (Omeprazole 20 Mg Capsule.) 20 mg PO DAILY [facility] Last Admin: 04/06/21 08:06 Dose: 20 mg Documented by: DENITA Pharmacy Consult (Consult Rx Perform Med Rec) 1 each MISCELLANE ONCE PRN PRN Reason: Consult order Senna (Sennosides 8.6 Mg Tablet) 17.2 mg PO BEDTIME PRN PRN Reason: Constipation Sodium Chloride (0.9 % Sodium Chloride Flush 3 Ml Syringe) 3 ml IVFLUSH QSHIFT [facility] Last Admin: 04/06/21 08:07 Dose: 3 ml Documented by: DNEITA Trazodone HCl (Trazodone Hcl 50 Mg Tablet) 50 mg PO BEDTIME PRN PRN Reason: insomnia Last Admin: 04/05/21 19:53 Dose: 50 mg Documented by: JACQUELYN Labs CBC & Chem 7: 04/01/21 06:09 04/02/21 06:35 Assessment and Plan (1) Compression fracture of T9 vertebra: Status: Acute Assessment and Plan: 80yo F with AF, chronic HFpEF, HTN, history of ocular melanoma presenting with confusion and cough, admitted for encephalopathy and initial impression of pneumonia, though ruled out radiographically found to have severe T9 compression fracture with retropulsion and cord deformity 1.Severe T9 compression fracture - discussed with IR. unstable fracture with high risk for cord compression; kyphoplasty planned for 04/10/21 - pain control: lidocaine patch, calcitonin 2.Encephalopathy -likely dementia. B12 + TSH normal. CT shows chronic microvascular disease suggesting possibility of vascular dementia. -treat as indicated 3. HTN -acceptable control on current therapies -adjust as indicated 4.Chronic HFpEF - continue metoprolol + amlodipine 5.AFib (chronic) -rate controlled on current therapies - continue metoprolol + digoxin - off apixaban due to planned kyphoplasty 6.GERD - continue PPI 7.Anxiety - prn trazodone + prn alprazolam VTE ppx SCD; d/c apixaban for kyphoplasty (2) Pneumonia: Status: Acute (3) Toxic encephalopathy: Status: Acute Quality Stroke Does the patient have a stroke diagnosis?: No VTE Prior VTE?: No VTE Risk Level:: Medical - moderate - high VTE Device Contraindication: Treatment Not Indicated VTE Drug Contraindication: N/A - Med Ordered
--- NOTE | 2021-04-06 11:05 | P.CDIC_ITS ---
CDI Concurrent Query Documentation Clarification: PHYSICIAN'S DOCUMENTATION REQUEST Date of Query: 04/06/21 1106 Patient Name: Tereza Joe Admit Date: 03/30/21 Dear Doctor, A review of the medical record indicates additional documentation may be needed. Please review below and update the documentation accordingly. Risk Factors/Clinical Indicators/Treatments Severe compression fracture T9 Lidocaine patch Calcitonin Kyphoplasty scheduled for 02/07. Please provide the following additional clarification regarding the fracture: Etiology: * Traumatic compression fracture * Pathologic compression fracture due to osteoporosis * Nontraumatic compression fracture * Pathologic due to other disease (please specify) * Unable to determine Use of terms such as suspected, likely, concern for, or probable (associated with a specific diagnosis that is being evaluated, monitored, or treated as if it exists) are acceptable and can be coded in the inpatient setting, when documented at the time of discharge. Thank you, Bri Mccormack [facility], CDIS Extension: [phone] Please use your independent medical judgment in providing your response. 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
[2021-04-06 15:29] VITALS: BP 116/57; PULSE 84; RESP 14; TEMP 36.7; O2SAT 96
[2021-04-06] MEDS: Acetaminophen 325 MG TABLET 650 MG PO (19:40)
[2021-04-06] MEDS: traZODone HCL 50 MG TABLET PO (21:12)
[2021-04-06] MEDS: Atorvastatin Calcium 40 MG TABLET PO (21:12)
[2021-04-06 23:29] VITALS: BP 121/60; PULSE 78; RESP 14; TEMP 36.8; O2SAT 96
[2021-04-07 06:10] LABS: MANUAL DIFF FLAG NO
[2021-04-07 06:16] LABS: Basophils Percent Auto 0.6 % (0-2); Eosinophils Absolute Auto 0.2 X10*3/uL (0.0-0.4); Eosinophils Percent Auto 2.7 % (0-4); Hematocrit 34.6 % (37.0-47.0); Hemoglobin 11.4 g/dl (12.0-16.0); Imm Gran Abs Auto 0.02 X10*3/uL (0.00-0.03); Imm Gran Pct Auto 0.3 % (0.0-0.4); Lymphocytes Absolute Auto 2.8 X10*3/uL (1.2-4.9); Lymphocytes Percent Auto 41.7 % (20-40); Mean Corpuscular HGB Conc 32.9 g/dl (31.0-35.0); Mean Corpuscular Hemoglobin 29.8 pg (27.0-33.0); Mean Corpuscular Volume 90.3 fL (80.0-98.0); Mean Platelet Volume 12.1 fL (9.4-12.3); Monocytes Absolute Auto 0.3 X10*3/uL (0.1-1.2); Neutrophils Absolute Auto 3.3 x10*3/uL (2.0-8.3); Neutrophils Percent Auto 49.7 % (45-73); Platelet Count 206 X10*3/uL (160-400); Red Blood Count 3.83 X10*6/uL (4.20-5.50); Red Cell Distribution Width 14.2 % (11.0-16.0); White Blood Count 6.6 X10*3/uL (4.8-10.8)
[2021-04-07 06:48] LABS: Alanine Aminotransferase 20 U/L (0-31); Albumin Level 3.2 g/dL (3.5-5.0); Alkaline Phosphatase 61 U/L (39-117); Anion Gap 9 (12-20); Aspartate Amino Transferase 16 U/L (5-31); Bilirubin Total 0.5 mg/dL (0.0-1.0); Blood Urea Nitrogen 24 mg/dL (9-16); Calcium 9.2 mg/dL (8.4-10.2); Carbon Dioxide 28 mmol/L (22-29); Chloride 108 mmol/L (96-108); Creatinine Clr Calc Pharmacy 45.7; Estimated Glomerular Filt Rate > 60; Glucose Fasting 100 mg/dL (60-99); Potassium 3.4 mmol/L (3.3-5.1); Sodium 142 mmol/L (135-145); Total Protein 5.5 g/dL (6.5-8.0)
[2021-04-07 07:27] VITALS: BP 122/65; PULSE 90; RESP 18; TEMP 36.3; O2SAT 96
[2021-04-07 07:39] LABS: Glucose, Whole Blood 94 mg/dL (60-115)
[2021-04-07] MEDS: Omeprazole 20 MG CAPSULE.DR PO (09:19)
[2021-04-07] MEDS: Metoprolol Tartrate 100 MG TABLET PO (09:19)
[2021-04-07] MEDS: amLODIPine Besylate 5 MG TABLET PO (09:19)
[2021-04-07] MEDS: Lidocaine 4 % Patch ADH..PATCH 1 PATCH TRANSDERMA (09:19)
[2021-04-07] MEDS: 0.9 % Sodium Chloride Flush 3 ML SYRINGE IVFLUSH ×3 (09:19→19:45)
[2021-04-07] MEDS: ALPRAZolam 0.5 MG TABLET PO ×2 (09:19→19:44)
[2021-04-07] MEDS: Digoxin 0.125 MG TABLET PO (09:28)
[2021-04-07] MEDS: Calcitonin,Salmon,Synth Nasal 3.7 ML BOTTLE 1 SPRAY NOSTRILALT (09:28)
--- NOTE | 2021-04-07 13:17 | MHC.CM.PN ---
nurse case management social worker note patient did not nterqual crioteria , she is now here for compression fx and holdiong anticoahgulant and will have kyphoplasty on saturday , informed hospitlaist of this ins is [facility]
--- NOTE | 2021-04-07 13:55 | P.PNIM_ITS ---
Subjective Subjective Date of Service: 04/07/21 Interval History: No acute issues overnnight. Still anxious at baseline Review of Systems Denies CP Denies SOB DeniedN/V/D Pain control adequate with lidoderm patch Physical Exam Vital Signs: Vital Signs: Last Vital Signs Temp 97.3 F 04/07/21 07:27 Pulse 90 04/07/21 07:27 Resp 18 04/07/21 07:27 BP 122/65 04/07/21 07:27 Pulse Ox 96 04/07/21 07:27 BMI result Body Mass Index 20.6 Const: Other: comfortable...NAD Resp: Other: clear A/P. no rales/wheezes Cardio: Other: -S4 +S1/S2 _S3 M/R/G GI: Other: soft NT/ND. NABS x 4 quads Back/Spine/Pelvis: Other: Lidoderm patch on Extrem: Other: no edema bilat Objective Data Active Medications Acetaminophen (Acetaminophen 325 Mg Tablet) 650 mg PO Q6H PRN PRN Reason: Pain, Mild (Pain Scale 1-3) Last Admin: 04/06/21 19:40 Dose: 650 mg Documented by: DENEEN Alprazolam (Alprazolam 0.5 Mg Tablet) 0.5 mg PO BID [facility] Last Admin: 04/07/21 09:19 Dose: 0.5 mg Documented by: NIYAH Amlodipine Besylate (Amlodipine Besylate 5 Mg Tablet) 5 mg PO DAILY [facility]; Protocol Last Admin: 04/07/21 09:19 Dose: 5 mg Documented by: NIYAH Atorvastatin Calcium (Atorvastatin Calcium 40 Mg Tablet) 40 mg PO BEDTIME [facility] Last Admin: 04/06/21 21:12 Dose: 40 mg Documented by: DENEEN Calcitonin [place] (Calcitonin,[place],Synth Nasal 3.7 Ml Bottle) 1 spray NOSTRILALT DAILY [facility] Last Admin: 04/07/21 09:28 Dose: 1 spray Documented by: NIYAH Digoxin (Digoxin 0.125 Mg Tablet) 0.125 mg PO WE [facility] Last Admin: 04/07/21 09:28 Dose: 0.125 mg Documented by: NIYAH Lidocaine (Lidocaine 4 % Patch Adh..Patch) 1 patch TRANSDERMA DAILY [facility]; Protocol Last Admin: 04/07/21 09:19 Dose: 1 patch Documented by: NIYAH Metoprolol Tartrate (Metoprolol Tartrate 100 Mg Tablet) 100 mg PO BID [facility]; Protocol Last Admin: 04/07/21 09:19 Dose: 100 mg Documented by: NIYAH Omeprazole (Omeprazole 20 Mg Capsule.Dr) 20 mg PO DAILY [facility] Last Admin: 04/07/21 09:19 Dose: 20 mg Documented by: NIYAH Pharmacy Consult (Consult Rx Perform Med Rec) 1 each MISCELLANE ONCE PRN PRN Reason: Consult order Senna (Sennosides 8.6 Mg Tablet) 17.2 mg PO BEDTIME PRN PRN Reason: Constipation Sodium Chloride (0.9 % Sodium Chloride Flush 3 Ml Syringe) 3 ml IVFLUSH QSHIFT [facility] Last Admin: 04/07/21 09:19 Dose: 3 ml Documented by: NIYAH Trazodone HCl (Trazodone Hcl 50 Mg Tablet) 50 mg PO BEDTIME PRN PRN Reason: insomnia Last Admin: 04/06/21 21:12 Dose: 50 mg Documented by: DENEEN Labs CBC & Chem 7: 04/07/21 05:35 04/07/21 05:35 Labs: Laboratory Results - last 24 hr 04/07/21 04/07/21 04/07/21 05:35 05:35 07:30 MCV 90.3 MCH 29.8 MCHC 32.9 RDW 14.2 Plt Count 206 MPV 12.1 Immature Gran % (Auto) 0.3 Neut % (Auto) 49.7 Lymph % (Auto) 41.7 H [place] % (Auto) 5.0 Eos % (Auto) 2.7 Baso % (Auto) 0.6 Lymph # (Auto) 2.8 [place] # (Auto) 0.3 Eos # (Auto) 0.2 Baso # (Auto) 0.0 Abs Immat Gran (auto) 0.02 Absolute Neuts (auto) 3.3 Absolute Nucleated RBC 0.000 Nucleated RBC % (auto) 0.0 Anion Gap 9 L Estim Creat Clear Calc 45.7 Estimated GFR > 60 POC Glucose 94 Fasting Glucose 100 H Calcium 9.2 Total Bilirubin 0.5 AST 16 ALT 20 Alkaline Phosphatase 61 D Total Protein 5.5 L D Albumin 3.2 L D Assessment and Plan (1) Compression fracture of T9 vertebra: Status: Acute Assessment and Plan: 80yo F with AF, chronic HFpEF, HTN, history of ocular melanoma presenting with confusion and cough, admitted for encephalopathy and initial impression of pneumonia, though ruled out radiographically found to have severe T9 compression fracture with retropulsion and cord deformity 1.Severe T9 compression fracture - discussed with IR. unstable fracture with high risk for cord compression; kyphoplasty planned for 04/10/21 - pain control: lidocaine patch, calcitonin - will check INR 04/09/21 2.Encephalopathy -likely dementia. B12 + TSH normal. CT shows chronic microvascular disease suggesting possibility of vascular dementia. -treat as indicated 3. HTN -acceptable control on current therapies -adjust as indicated 4.Chronic HFpEF - continue metoprolol + amlodipine 5.AFib (chronic) -rate controlled on current therapies - continue metoprolol + digoxin - off apixaban due to planned kyphoplasty 6.GERD - continue PPI 7.Anxiety -good response to therapies - prn trazodone + prn alprazolam VTE ppx SCD; d/c apixaban for kyphoplasty (2) Acute alteration in mental status: Status: Acute Quality Stroke Does the patient have a stroke diagnosis?: No VTE Prior VTE?: No VTE Risk Level:: Medical - moderate - high VTE Device Contraindication: Treatment Not Indicated VTE Drug Contraindication: N/A - Med Ordered
[2021-04-07 15:20] VITALS: BP 98/52; PULSE 79; RESP 18; TEMP 36.9; O2SAT 97
[2021-04-07] MEDS: Atorvastatin Calcium 40 MG TABLET PO (19:43)
[2021-04-07] MEDS: traZODone HCL 50 MG TABLET PO (19:44)
[2021-04-07 23:23] VITALS: BP 104/56; PULSE 87; RESP 14; TEMP 36.4; O2SAT 95
[2021-04-08 08:00] VITALS: BP 113/66; PULSE 80; RESP 20; TEMP 36.9; O2SAT 97
[2021-04-08] MEDS: Omeprazole 20 MG CAPSULE.DR PO (08:49)
[2021-04-08] MEDS: Metoprolol Tartrate 100 MG TABLET PO (08:49)
[2021-04-08] MEDS: ALPRAZolam 0.5 MG TABLET PO ×3 (08:49→20:13)
[2021-04-08] MEDS: amLODIPine Besylate 5 MG TABLET PO (08:49)
[2021-04-08] MEDS: 0.9 % Sodium Chloride Flush 3 ML SYRINGE IVFLUSH ×3 (08:50→20:13)
[2021-04-08] MEDS: Lidocaine 4 % Patch ADH..PATCH 1 PATCH TRANSDERMA (08:52)
--- NOTE | 2021-04-08 10:52 | HO.PM.IMPN ---
Subjective Subjective Date of Service: 04/08/21 Interval History: No acute issues overnnight. Still anxious at baseline Review of Systems Denies CP Denies SOB DeniedN/V/D Pain control adequate with lidoderm patch Physical Exam Vital Signs: Vital Signs: Last Vital Signs Temp 98.4 F 04/08/21 08:00 Pulse 80 04/08/21 08:00 Resp 20 04/08/21 08:00 BP 113/66 04/08/21 08:00 Pulse Ox 97 04/08/21 08:00 BMI result Body Mass Index 20.6 Const: Other: comfortable...NAD Resp: Other: clear A/P. no rales/wheezes Cardio: Other: -S4 +S1/S2 _S3 M/R/G GI: Other: soft NT/ND. NABS x 4 quads Back/Spine/Pelvis: Other: Lidoderm patch on Extrem: Other: no edema bilat Objective Data Active Medications Acetaminophen (Acetaminophen 325 Mg Tablet) 650 mg PO Q6H PRN PRN Reason: Pain, Mild (Pain Scale 1-3) Last Admin: 04/06/21 19:40 Dose: 650 mg Documented by: DENEEN Alprazolam (Alprazolam 0.5 Mg Tablet) 0.5 mg PO BID [facility] Last Admin: 04/08/21 08:49 Dose: 0.5 mg Documented by: WALLACE Amlodipine Besylate (Amlodipine Besylate 5 Mg Tablet) 5 mg PO DAILY [facility]; Protocol Last Admin: 04/08/21 08:49 Dose: 5 mg Documented by: WALLACE Atorvastatin Calcium (Atorvastatin Calcium 40 Mg Tablet) 40 mg PO BEDTIME [facility] Last Admin: 04/07/21 19:43 Dose: 40 mg Documented by: OLIVIER Calcitonin [place] (Calcitonin,[place],Synth Nasal 3.7 Ml Bottle) 1 spray NOSTRILALT DAILY [facility] Last Admin: 04/08/21 08:57 Dose: Not Given Documented by: WALLACE Non-Admin Reason: Patient Refused Digoxin (Digoxin 0.125 Mg Tablet) 0.125 mg PO [facility] Last Admin: 04/07/21 09:28 Dose: 0.125 mg Documented by: NIYAH Lidocaine (Lidocaine 4 % Patch Adh..Patch) 1 patch TRANSDERMA DAILY [facility]; Protocol Last Admin: 04/08/21 08:52 Dose: 1 patch Documented by: WALLACE Metoprolol Tartrate (Metoprolol Tartrate 100 Mg Tablet) 100 mg PO BID [facility]; Protocol Last Admin: 04/08/21 08:49 Dose: 100 mg Documented by: WALLACE Omeprazole (Omeprazole 20 Mg Capsule.Dr) 20 mg PO DAILY [facility] Last Admin: 04/08/21 08:49 Dose: 20 mg Documented by: WALLACE Pharmacy Consult (Consult Rx Perform Med Rec) 1 each MISCELLANE ONCE PRN PRN Reason: Consult order Senna (Sennosides 8.6 Mg Tablet) 17.2 mg PO BEDTIME PRN PRN Reason: Constipation Sodium Chloride (0.9 % Sodium Chloride Flush 3 Ml Syringe) 3 ml IVFLUSH QSHIFT [facility] Last Admin: 04/08/21 08:50 Dose: 3 ml Documented by: WALLACE Trazodone HCl (Trazodone Hcl 50 Mg Tablet) 50 mg PO BEDTIME PRN PRN Reason: insomnia Last Admin: 04/07/21 19:44 Dose: 50 mg Documented by: OLIVIER Labs CBC & Chem 7: 04/07/21 05:35 04/07/21 05:35 Assessment and Plan (1) Compression fracture of T9 vertebra: Status: Acute Assessment and Plan: 80yo F with AF, chronic HFpEF, HTN, history of ocular melanoma presenting with confusion and cough, admitted for encephalopathy and initial impression of pneumonia, though ruled out radiographically found to have severe T9 compression fracture with retropulsion and cord deformity 1.Severe T9 compression fracture - discussed with IR. unstable fracture with high risk for cord compression; kyphoplasty planned for 04/10/21 - pain control: lidocaine patch, calcitonin - will check INR 04/09/21;NPO after midnoc 04/09/21 2. HTN -acceptable control on current therapies -adjust as indicated 3.Chronic HFpEF - continue metoprolol + amlodipine 4.AFib (chronic) -rate controlled on current therapies - continue metoprolol + digoxin - off apixaban due to planned kyphoplasty 5.GERD - continue PPI 6.Anxiety -good response to therapies - prn trazodone + prn alprazolam VTE ppx SCD; d/c apixaban for kyphoplasty Quality Stroke Does the patient have a stroke diagnosis?: No VTE Prior VTE?: No VTE Risk Level:: Medical - moderate - high VTE Device Contraindication: Treatment Not Indicated VTE Drug Contraindication: N/A - Med Ordered
[2021-04-08 15:11] VITALS: BP 102/56; PULSE 90; RESP 18; TEMP 36.3; O2SAT 96
[2021-04-08] MEDS: Magnesium Hydrox/Alum Hydrox 30 ML ORAL.SUSP PO (16:51)
[2021-04-08] MEDS: Atorvastatin Calcium 40 MG TABLET PO (20:13)
[2021-04-08 23:22] VITALS: BP 126/71; PULSE 73; RESP 20; TEMP 36.1; O2SAT 94
[2021-04-09 05:54] LABS: Hematocrit 34.9 % (37.0-47.0); Hemoglobin 11.8 g/dl (12.0-16.0)
[2021-04-09 05:59] LABS: INTERNATIONAL NORM RATIO 1.1 (0.9-1.1); Prothrombin Time 12.2 SEC (9.9-13.0)
[2021-04-09 06:02] LABS: Partial Thromboplastin Time 30.2 SEC (24.1-38.0)
[2021-04-09 06:10] LABS: Anion Gap 10 (12-20); Blood Urea Nitrogen 20 mg/dL (9-16); Carbon Dioxide 27 mmol/L (22-29); Chloride 108 mmol/L (96-108); Estimated Glomerular Filt Rate > 60; Glucose Random 96 mg/dL (60-115); Potassium 3.5 mmol/L (3.3-5.1); Sodium 141 mmol/L (135-145)
[2021-04-09 07:41] VITALS: BP 163/68; PULSE 108; RESP 20; TEMP 36.5; O2SAT 96
[2021-04-09] MEDS: ALPRAZolam 0.5 MG TABLET PO ×3 (08:21→20:37)
[2021-04-09] MEDS: Lidocaine 4 % Patch ADH..PATCH 1 PATCH TRANSDERMA (08:21)
[2021-04-09] MEDS: Metoprolol Tartrate 100 MG TABLET PO ×2 (08:21→20:41)
[2021-04-09] MEDS: Calcitonin,Salmon,Synth Nasal 3.7 ML BOTTLE 1 SPRAY NOSTRILALT (08:21)
[2021-04-09] MEDS: amLODIPine Besylate 5 MG TABLET PO (08:21)
[2021-04-09] MEDS: 0.9 % Sodium Chloride Flush 3 ML SYRINGE IVFLUSH ×3 (08:21→20:37)
[2021-04-09] MEDS: Omeprazole 20 MG CAPSULE.DR PO (08:21)
[2021-04-09] MEDS: Acetaminophen 325 MG TABLET 650 MG PO ×2 (08:33→20:36)
--- NOTE | 2021-04-09 13:05 | HO.PM.IMPN ---
Subjective Subjective Date of Service: 04/09/21 Interval History: No acute issues overnnight. Still anxious at baseline Review of Systems Denies CP Denies SOB DeniedN/V/D Pain control adequate with lidoderm patch Physical Exam Vital Signs: Vital Signs: Last Vital Signs Temp 97.7 F 04/09/21 07:41 Pulse 108 H 04/09/21 07:41 Resp 20 04/09/21 07:41 BP 163/68 H 04/09/21 07:41 Pulse Ox 96 04/09/21 07:41 BMI result Body Mass Index 20.6 Const: Other: comfortable...NAD Resp: Other: clear A/P. no rales/wheezes Cardio: Other: -S4 +S1/S2 _S3 M/R/G GI: Other: soft NT/ND. NABS x 4 quads Back/Spine/Pelvis: Other: Lidoderm patch on Extrem: Other: no edema bilat Objective Data Active Medications Acetaminophen (Acetaminophen 325 Mg Tablet) 650 mg PO Q6H PRN PRN Reason: Pain, Mild (Pain Scale 1-3) Last Admin: 04/09/21 08:33 Dose: 650 mg Documented by: FREDDIE Al Hydroxide/Mg Hydroxide (Magnesium Hydrox/Alum Hydrox 30 Ml Oral.Susp) 30 ml PO Q6H PRN PRN Reason: Indigestion Last Admin: 04/08/21 16:51 Dose: 30 ml Documented by: WALLACE Alprazolam (Alprazolam 0.5 Mg Tablet) 0.5 mg PO BID [facility] Last Admin: 04/09/21 08:21 Dose: 0.5 mg Documented by: FREDDIE Amlodipine Besylate (Amlodipine Besylate 5 Mg Tablet) 5 mg PO DAILY [facility]; Protocol Last Admin: 04/09/21 08:21 Dose: 5 mg Documented by: FREDDIE Atorvastatin Calcium (Atorvastatin Calcium 40 Mg Tablet) 40 mg PO BEDTIME [facility] Last Admin: 04/08/21 20:13 Dose: 40 mg Documented by: DIONNA Calcitonin [place] (Calcitonin,[place],Synth Nasal 3.7 Ml Bottle) 1 spray NOSTRILALT DAILY [facility] Last Admin: 04/09/21 08:21 Dose: 1 spray Documented by: FREDDIE Digoxin (Digoxin 0.125 Mg Tablet) 0.125 mg PO [facility] Last Admin: 04/07/21 09:28 Dose: 0.125 mg Documented by: NIYAH Lidocaine (Lidocaine 4 % Patch Adh..Patch) 1 patch TRANSDERMA DAILY [facility]; Protocol Last Admin: 04/09/21 08:21 Dose: 1 patch Documented by: FREDDIE Metoprolol Tartrate (Metoprolol Tartrate 100 Mg Tablet) 100 mg PO BID [facility]; Protocol Last Admin: 04/09/21 08:21 Dose: 100 mg Documented by: FREDDIE Omeprazole (Omeprazole 20 Mg Capsule.Dr) 20 mg PO DAILY [facility] Last Admin: 04/09/21 08:21 Dose: 20 mg Documented by: FREDDIE Pharmacy Consult (Consult Rx Perform Med Rec) 1 each MISCELLANE ONCE PRN PRN Reason: Consult order Senna (Sennosides 8.6 Mg Tablet) 17.2 mg PO BEDTIME PRN PRN Reason: Constipation Sodium Chloride (0.9 % Sodium Chloride Flush 3 Ml Syringe) 3 ml IVFLUSH QSHIFT [facility] Last Admin: 04/09/21 08:21 Dose: 3 ml Documented by: FREDDIE Trazodone HCl (Trazodone Hcl 50 Mg Tablet) 50 mg PO BEDTIME PRN PRN Reason: insomnia Last Admin: 04/07/21 19:44 Dose: 50 mg Documented by: OLIVIER Labs CBC & Chem 7: 04/09/21 05:31 04/09/21 05:31 Labs: Laboratory Results - last 24 hr 04/09/21 04/09/21 05:31 05:31 PT 12.2 INR 1.1 APTT 30.2 D Anion Gap 10 L Estim Creat Clear Calc 52.0 Estimated GFR > 60 Random Glucose 96 Calcium 9.0 Assessment and Plan (1) Compression fracture of T9 vertebra: Status: Acute Assessment and Plan: 80yo F with AF, chronic HFpEF, HTN, history of ocular melanoma presenting with confusion and cough, admitted for encephalopathy and initial impression of pneumonia, though ruled out radiographically found to have severe T9 compression fracture with retropulsion and cord deformity 1.Severe T9 compression fracture - discussed with IR. unstable fracture with high risk for cord compression; kyphoplasty planned for 04/10/21 - pain control: lidocaine patch, calcitonin - will check INR 04/10/21;NPO after midnoc 04/09/21 2. HTN -acceptable control on current therapies -adjust as indicated 3.Chronic HFpEF - continue metoprolol + amlodipine 4.AFib (chronic) -rate controlled on current therapies - continue metoprolol + digoxin - off apixaban due to planned kyphoplasty 5.GERD - continue PPI 6.Anxiety -good response to therapies - prn trazodone + prn alprazolam VTE ppx SCD; d/c apixaban for kyphoplasty (2) HTN (hypertension): Status: Acute (3) CHF exacerbation: Status: Acute Quality Stroke Does the patient have a stroke diagnosis?: No VTE Prior VTE?: No VTE Risk Level:: Medical - moderate - high VTE Device Contraindication: Treatment Not Indicated VTE Drug Contraindication: N/A - Med Ordered
[2021-04-09 15:12] VITALS: BP 112/58; PULSE 71; RESP 18; TEMP 36.7; O2SAT 97
[2021-04-09 16:04] LABS: Appearance Urine CLEAR; Color Urine YELLOW; Glucose Urine UA NEG (NEG); Leukocyte Esterase Urine 1+ (NEG); Nitrite Urine NEG (NEG); UACC Culture Trigger YES; Urine Blood NEG (NEG); Urine Ketones NEG (NEG); Urine Protein NEG (NEG-TRACE)
[2021-04-09 16:17] LABS: Mucus Urine TRACE /LPF; RBC Urine 0-2 /HPF (0); Squamous Epithelial Cell Urine 1+ /LPF
[2021-04-09] MEDS: traZODone HCL 50 MG TABLET PO (20:36)
[2021-04-09] MEDS: Atorvastatin Calcium 40 MG TABLET PO (20:37)
[2021-04-09 23:48] VITALS: BP 143/65; PULSE 83; RESP 16; TEMP 36.9; O2SAT 98
[2021-04-10] VITALS (9 sets, daily range): BP systolic 124–146; BP diastolic 58–83; PULSE 67–92; RESP 16–18; TEMP 36.1–36.9; O2SAT 95–100
--- NOTE | 2021-04-10 02:00 | ECG_ITS ---
Test Reason : CHEST PAIN Blood Pressure : / mmHG Vent. Rate : 074 BPM Atrial Rate : 000 BPM P-R Int : 000 ms QRS Dur : 096 ms QT Int : 380 ms P-R-T Axes : 000 -41 054 degrees QTc Int : 421 ms Atrial fibrillation Left axis deviation Septal infarct , age undetermined Abnormal ECG No previous ECGs available Referred By: Royce Leiva Electronically Signed By:ADRIANA MARTÍNEZ MD
--- NOTE | 2021-04-10 02:37 | PC.NURSE ---
0150 pt c/o of chest pain [id number] 80-16 sats 98% on r/a.EKG done. notified,picture of EKG sent to her.stat troponin ordered.
[2021-04-10 03:22] LABS: Troponin-I High Sensitivity 10.9 ng/L (<3.5-17.0)
--- NOTE | 2021-04-10 03:32 | PC.NURSE ---
troponin was 10.9. notified.
[2021-04-10 06:42] LABS: INTERNATIONAL NORM RATIO 1.1 (0.9-1.1); Prothrombin Time 12.7 SEC (9.9-13.0)
[2021-04-10 08:58] LABS: Glucose, Whole Blood 108 mg/dL (60-115)
[2021-04-10 09:07] LABS: MANUAL DIFF FLAG NO
[2021-04-10 09:13] LABS: Basophils Percent Auto 0.4 % (0-2); Eosinophils Absolute Auto 0.2 X10*3/uL (0.0-0.4); Hematocrit 35.3 % (37.0-47.0); Imm Gran Abs Auto 0.03 X10*3/uL (0.00-0.03); Imm Gran Pct Auto 0.4 % (0.0-0.4); Lymphocytes Absolute Auto 2.6 X10*3/uL (1.2-4.9); Lymphocytes Percent Auto 32.2 % (20-40); Mean Corpuscular Hemoglobin 30.5 pg (27.0-33.0); Mean Corpuscular Volume 89.6 fL (80.0-98.0); Mean Platelet Volume 11.9 fL (9.4-12.3); Monocytes Absolute Auto 0.4 X10*3/uL (0.1-1.2); Monocytes Percent Auto 4.6 % (2-11); Neutrophils Absolute Auto 4.8 x10*3/uL (2.0-8.3); Neutrophils Percent Auto 59.4 % (45-73); Platelet Count 217 X10*3/uL (160-400); Red Blood Count 3.94 X10*6/uL (4.20-5.50); Red Cell Distribution Width 14.1 % (11.0-16.0)
[2021-04-10 09:18] LABS: INTERNATIONAL NORM RATIO 1.1 (0.9-1.1); Prothrombin Time 12.5 SEC (9.9-13.0)
[2021-04-10 09:20] LABS: Partial Thromboplastin Time 33.5 SEC (24.1-38.0)
[2021-04-10] MEDS: Lidocaine 4 % Patch ADH..PATCH 1 PATCH TRANSDERMA (09:47)
[2021-04-10] MEDS: ALPRAZolam 0.5 MG TABLET PO ×2 (09:48→20:41)
[2021-04-10] MEDS: Omeprazole 20 MG CAPSULE.DR PO (09:48)
[2021-04-10] MEDS: amLODIPine Besylate 5 MG TABLET PO (09:48)
[2021-04-10] MEDS: 0.9 % Sodium Chloride Flush 3 ML SYRINGE IVFLUSH ×2 (09:48→20:41)
[2021-04-10] MEDS: Metoprolol Tartrate 100 MG TABLET PO ×2 (09:48→20:41)
--- NOTE | 2021-04-10 09:48 | MHC.CM.PN ---
EMR REVIEWED, PLAN FOR KYPHOPLASTY TODAY AND ANTIC D/C BY TOMORROW 04/11 W/NEW [facility].
[2021-04-10] MEDS: Calcitonin,Salmon,Synth Nasal 3.7 ML BOTTLE 1 SPRAY NOSTRILALT (09:53)
--- NOTE | 2021-04-10 10:22 | HO.PM.IMPN ---
Subjective Subjective Date of Service: 04/10/21 Interval History: No acute issues overnnight. Very anxious this am; procedure today Review of Systems Denies CP Denies SOB DeniedN/V/D Pain control adequate with lidoderm patch Physical Exam Vital Signs: Vital Signs: Last Vital Signs Temp 97.6 F 04/10/21 08:44 Pulse 90 04/10/21 08:44 Resp 18 04/10/21 08:44 BP 132/83 04/10/21 08:44 Pulse Ox 97 04/10/21 08:44 BMI result Body Mass Index 20.6 Const: Other: comfortable...NAD Resp: Other: clear A/P. no rales/wheezes Cardio: Other: -S4 +S1/S2 _S3 M/R/G GI: Other: soft NT/ND. NABS x 4 quads Back/Spine/Pelvis: Other: Lidoderm patch on Extrem: Other: no edema bilat Objective Data Active Medications Acetaminophen (Acetaminophen 325 Mg Tablet) 650 mg PO Q6H PRN PRN Reason: Pain, Mild (Pain Scale 1-3) Last Admin: 04/09/21 20:36 Dose: 650 mg Documented by: GENARO Al Hydroxide/Mg Hydroxide (Magnesium Hydrox/Alum Hydrox 30 Ml Oral.Susp) 30 ml PO Q6H PRN PRN Reason: Indigestion Last Admin: 04/08/21 16:51 Dose: 30 ml Documented by: WALLACE Alprazolam (Alprazolam 0.5 Mg Tablet) 0.5 mg PO BID [facility] Last Admin: 04/10/21 09:48 Dose: 0.5 mg Documented by: ROBERT Amlodipine Besylate (Amlodipine Besylate 5 Mg Tablet) 5 mg PO DAILY [facility]; Protocol Last Admin: 04/10/21 09:48 Dose: 5 mg Documented by: ROBERT Atorvastatin Calcium (Atorvastatin Calcium 40 Mg Tablet) 40 mg PO BEDTIME [facility] Last Admin: 04/09/21 20:37 Dose: 40 mg Documented by: GENARO Calcitonin [place] (Calcitonin,[place],Synth Nasal 3.7 Ml Bottle) 1 spray NOSTRILALT DAILY [facility] Last Admin: 04/10/21 09:53 Dose: 1 spray Documented by: ROBERT Digoxin (Digoxin 0.125 Mg Tablet) 0.125 mg PO WE [facility] Last Admin: 04/07/21 09:28 Dose: 0.125 mg Documented by: NIYAH Lidocaine (Lidocaine 4 % Patch Adh..Patch) 1 patch TRANSDERMA DAILY [facility]; Protocol Last Admin: 04/10/21 09:47 Dose: 1 patch Documented by: ROBERT Metoprolol Tartrate (Metoprolol Tartrate 100 Mg Tablet) 100 mg PO BID [facility]; Protocol Last Admin: 04/10/21 09:48 Dose: 100 mg Documented by: ROBERT Omeprazole (Omeprazole 20 Mg Capsule.Dr) 20 mg PO DAILY [facility] Last Admin: 04/10/21 09:48 Dose: 20 mg Documented by: ROBERT Pharmacy Consult (Consult Rx Perform Med Rec) 1 each MISCELLANE ONCE PRN PRN Reason: Consult order Senna (Sennosides 8.6 Mg Tablet) 17.2 mg PO BEDTIME PRN PRN Reason: Constipation Sodium Chloride (0.9 % Sodium Chloride Flush 3 Ml Syringe) 3 ml IVFLUSH QSHIFT [facility] Last Admin: 04/10/21 09:48 Dose: 3 ml Documented by: ROBERT Trazodone HCl (Trazodone Hcl 50 Mg Tablet) 50 mg PO BEDTIME PRN PRN Reason: insomnia Last Admin: 04/09/21 20:36 Dose: 50 mg Documented by: GENARO Labs CBC & Chem 7: 04/10/21 08:33 04/09/21 05:31 Labs: Laboratory Results - last 24 hr 04/09/21 04/10/21 04/10/21 15:40 05:58 08:33 MCV 89.6 MCH 30.5 MCHC 34.0 RDW 14.1 Plt Count 217 MPV 11.9 Immature Gran % (Auto) 0.4 Neut % (Auto) 59.4 Lymph % (Auto) 32.2 [place] % (Auto) 4.6 Eos % (Auto) 3.0 Baso % (Auto) 0.4 Lymph # (Auto) 2.6 [place] # (Auto) 0.4 Eos # (Auto) 0.2 Baso # (Auto) 0.0 Abs Immat Gran (auto) 0.03 Absolute Neuts (auto) 4.8 Absolute Nucleated RBC 0.000 Nucleated RBC % (auto) 0.0 PT 12.7 INR 1.1 APTT POC Glucose Urine Color YELLOW Urine Appearance CLEAR Urine pH 6.0 Ur Specific [place] 1.010 Urine Protein NEG Urine Glucose (UA) NEG Urine Ketones NEG Urine Blood NEG Urine Nitrite NEG Ur Leukocyte Esterase 1+ H Urine RBC 0-2 Urine WBC 5-9 H Ur Squamous Epith Cells 1+ Urine Bacteria NONE Urine Mucus TRACE 04/10/21 04/10/21 08:34 08:50 MCV MCH MCHC RDW Plt Count MPV Immature Gran % (Auto) Neut % (Auto) Lymph % (Auto) [place] % (Auto) Eos % (Auto) Baso % (Auto) Lymph # (Auto) [place] # (Auto) Eos # (Auto) Baso # (Auto) Abs Immat Gran (auto) Absolute Neuts (auto) Absolute Nucleated RBC Nucleated RBC % (auto) PT 12.5 INR 1.1 APTT 33.5 POC Glucose 108 Urine Color Urine Appearance Urine pH Ur Specific [place] Urine Protein Urine Glucose (UA) Urine Ketones Urine Blood Urine Nitrite Ur Leukocyte Esterase Urine RBC Urine WBC Ur Squamous Epith Cells Urine Bacteria Urine Mucus Microbiology Microbiology Results: Microbiology 04/09/21 16:07 Urine Culture - Preliminary Urine clean catch - Clean Catch Midstream Culture too young to evaluate. Assessment and Plan (1) Compression fracture of T9 vertebra: Status: Acute Assessment and Plan: 80yo F with AF, chronic HFpEF, HTN, history of ocular melanoma presenting with confusion and cough, admitted for encephalopathy and initial impression of pneumonia, though ruled out radiographically found to have severe T9 compression fracture with retropulsion and cord deformity 1.Severe T9 compression fracture - kyphoplasty today. INR 1.1 - pain control: lidocaine patch, calcitonin - given prolonged stay....ask PT to re evaluate when appropriate 2. HTN -acceptable control on current therapies -adjust as indicated 3.Chronic HFpEF - continue metoprolol + amlodipine 4.AFib (chronic) -rate controlled on current therapies - continue metoprolol + digoxin - off apixaban due to planned kyphoplasty 5.GERD - continue PPI 6.Anxiety -good response to therapies; taking additional doses - prn trazodone + prn alprazolam VTE ppx SCD; d/c apixaban for kyphoplasty Quality Stroke Does the patient have a stroke diagnosis?: No VTE Prior VTE?: No VTE Risk Level:: Medical - moderate - high VTE Device Contraindication: Treatment Not Indicated VTE Drug Contraindication: N/A - Med Ordered
--- NOTE | 2021-04-10 12:53 | HO.ANESPROP2 ---
HPI - Anesthesia Eval Consult details Narrative: T9 severe compression fracture PMFSH Active Problems Active Problems: All Active Problems (Updated 04/01/21 @ 09:57 by Irina Acosta MD) Compression fracture of T9 vertebra (Acute) Acute alteration in mental status (Acute) Pneumonia (Acute) E coli bacteremia (Acute) Ocular melanoma (Acute) UTI (urinary tract infection) (Acute) Toxic encephalopathy (Acute) Delusions (Acute) Bacteriuria (Acute) Depression (Acute) NATE (acute kidney injury) (Acute) Diarrhea (Acute) Uncontrolled hypertension (Acute) Acute diastolic heart failure (Acute) CHF exacerbation (Acute) Pleural effusion (Acute) Pleural effusion (Acute) Hemopneumothorax (Acute) Fall (Acute) Fracture, rib (Acute ~02/2020) Atrial fibrillation with rapid ventricular response (Acute) HTN (hypertension) (Acute) Past Medical History Medical History Anxiety Atrial fibrillation with controlled ventricular rate Depression Diastolic heart failure GERD (gastroesophageal reflux disease) History of rib fracture HTN (hypertension) Ocular melanoma Family History Family history of problems with anesthesia: No Surgical History History of Problems with Anesthesia: No Social History Social History Household Members: Children Housing: House Do you presently have visiting nurse or other home services: No Alcohol intake: never Patient Tobacco Use Status: Never used Tobacco Second Hand Smoke Exposure: No Advance Directives Date on File: 09/07/20 service: No Current occupational status: retired Meds Allergies Allergy/AdvReac Type Severity Reaction Status Date / Time No Known Allergies Allergy Verified 03/31/21 19:48 Active Medications: Current Medications Acetaminophen (Acetaminophen 325 Mg Tablet) 650 mg PO Q6H PRN PRN Reason: Pain, Mild (Pain Scale 1-3) Last Admin: 04/09/21 20:36 Dose: 650 mg Documented by: Al Hydroxide/Mg Hydroxide (Magnesium Hydrox/Alum Hydrox 30 Ml Oral.Susp) 30 ml PO Q6H PRN PRN Reason: Indigestion Last Admin: 04/08/21 16:51 Dose: 30 ml Documented by: Alprazolam (Alprazolam 0.5 Mg Tablet) 0.5 mg PO BID LINDSAY Last Admin: 04/10/21 09:48 Dose: 0.5 mg Documented by: Amlodipine Besylate (Amlodipine Besylate 5 Mg Tablet) 5 mg PO DAILY [facility]; Protocol Last Admin: 04/10/21 09:48 Dose: 5 mg Documented by: Atorvastatin Calcium (Atorvastatin Calcium 40 Mg Tablet) 40 mg PO BEDTIME [facility] Last Admin: 04/09/21 20:37 Dose: 40 mg Documented by: Calcitonin [place] (Calcitonin,[place],Synth Nasal 3.7 Ml Bottle) 1 spray NOSTRILALT DAILY [facility] Last Admin: 04/10/21 09:53 Dose: 1 spray Documented by: Digoxin (Digoxin 0.125 Mg Tablet) 0.125 mg PO WE [facility] Last Admin: 04/07/21 09:28 Dose: 0.125 mg Documented by: Lidocaine (Lidocaine 4 % Patch Adh..Patch) 1 patch TRANSDERMA DAILY [facility]; Protocol Last Admin: 04/10/21 09:47 Dose: 1 patch Documented by: Metoprolol Tartrate (Metoprolol Tartrate 100 Mg Tablet) 100 mg PO BID [facility]; Protocol Last Admin: 04/10/21 09:48 Dose: 100 mg Documented by: Omeprazole (Omeprazole 20 Mg Capsule.) 20 mg PO DAILY [facility] Last Admin: 04/10/21 09:48 Dose: 20 mg Documented by: Pharmacy Consult (Consult Rx Perform Med Rec) 1 each MISCELLANE ONCE PRN PRN Reason: Consult order Senna (Sennosides 8.6 Mg Tablet) 17.2 mg PO BEDTIME PRN PRN Reason: Constipation Sodium Chloride (0.9 % Sodium Chloride Flush 3 Ml Syringe) 3 ml IVFLUSH [facility] Last Admin: 04/10/21 09:48 Dose: 3 ml Documented by: Trazodone HCl (Trazodone Hcl 50 Mg Tablet) 50 mg PO BEDTIME PRN PRN Reason: insomnia Last Admin: 04/09/21 20:36 Dose: 50 mg Documented by: Home Medications Medication Instructions Recorded Confirmed Last Taken Type omeprazole 20 mg capsule,delayed 1 cap PO DAILY 02/26/20 03/30/21 03/30/21 History release amlodipine 10 mg tablet 10 mg PO DAILY 03/16/20 03/30/21 03/30/21 History calcium carbonate 600 mg-vitamin 1 tab PO DAILY 09/07/20 03/30/21 03/30/21 History D3 20 mcg (800 unit) tablet (Caltrate with Vitamin D3) melatonin 5 mg tablet 5 mg PO BEDTIME PRN 09/07/20 03/30/21 03/29/21 History alprazolam 0.5 mg tablet 0.5 mg PO BID PRN 12/14/20 03/30/21 03/30/21 History digoxin 125 mcg (0.125 mg) tablet 125 mcg PO TUWETHFR 03/30/21 03/30/21 03/30/21 History trazodone 50 mg tablet 0.5 - 1 tab PO BEDTIME PRN 03/30/21 03/30/21 Unknown History Exam Exam Date and Time: April 10, 2021 1253 Height,Weight and Vital Signs: Height 5 ft 4 in Weight 54.524 kg Last Vital Signs Temp 97.8 F 04/10/21 12:28 Pulse 92 04/10/21 12:28 Resp 18 04/10/21 12:28 BP 145/70 H 04/10/21 12:28 Pulse Ox 95 04/10/21 12:28 Pertinent Lab Results Pertinent Lab Results: Laboratory Tests 03/30/21 03/30/21 03/30/21 17:45 17:45 17:45 WBC 8.2 RBC 4.34 Hgb 13.2 Hct 39.3 MCV 90.6 MCH 30.4 MCHC 33.6 RDW 13.9 Plt Count 259 MPV 11.6 Immature Gran % (Auto) 0.2 Neut % (Auto) 62.7 Lymph % (Auto) 30.1 [place] % (Auto) 5.4 Eos % (Auto) 1.1 Baso % (Auto) 0.5 Lymph # (Auto) 2.5 [place] # (Auto) 0.4 Eos # (Auto) 0.1 Baso # (Auto) 0.0 Abs Immat Gran (auto) 0.02 Absolute Neuts (auto) 5.1 Absolute Nucleated RBC 0.000 Nucleated RBC % (auto) 0.0 PT INR APTT VBG pH VBG pCO2 VBG pO2 VBG HCO3 VBG O2 Saturation VBG Base Excess Sodium Potassium Chloride Carbon Dioxide Anion Gap BUN Creatinine Estim Creat Clear Calc Estimated GFR POC Glucose Random Glucose Fasting Glucose Lactic Acid 1.1 Calcium Magnesium Total Bilirubin AST ALT Alkaline Phosphatase Troponin I High Sens Total Protein Albumin Lipase Vitamin B12 Procalcitonin TSH Urine Color YELLOW Urine Appearance CLEAR Urine pH 6.0 Ur Specific [place] 1.025 Urine Protein TRACE Urine Glucose (UA) NEG Urine Ketones NEG Urine Blood NEG Urine Nitrite NEG Ur Leukocyte Esterase NEG Urine RBC Urine WBC Ur Squamous Epith Cells Urine Bacteria Urine Mucus Digoxin Respiratory Panel Yi Adenovirus (Rapid PCR) B.pert (TEM-PCR) B.parapertussis DNA PCR C. pneumoniae DNA (PCR) Coronavirus OC43 (PCR) Coronavirus HKU1 (PCR) Coronavirus 229E (PCR) COVID-19 ([facility]) COVID-19 Clin Com Coronavirus NL63 (PCR) Human Metapneumovir PCR Influenza A (RT-PCR) Influenza B (RT-PCR) Ur L.pneumophila Ag M. pneumoniae (PCR) Parainfluenza 1 (PCR) Parainfluenza 2 (PCR) Parainfluenza 3 (PCR) Parainfluenza 4 (PCR) RSV (PCR) Entero/Rhino (PCR) SARS-CoV-2 RNA (RT-PCR) Ur Strep pneumoniae Ag 03/30/21 03/30/21 03/30/21 17:46 18:17 21:21 WBC RBC Hgb Hct MCV MCH MCHC RDW Plt Count MPV Immature Gran % (Auto) Neut % (Auto) Lymph % (Auto) [place] % (Auto) Eos % (Auto) Baso % (Auto) Lymph # (Auto) [place] # (Auto) Eos # (Auto) Baso # (Auto) Abs Immat Gran (auto) Absolute Neuts (auto) Absolute Nucleated RBC Nucleated RBC % (auto) PT INR APTT VBG pH VBG pCO2 VBG pO2 VBG HCO3 VBG O2 Saturation VBG Base Excess Sodium 144 Potassium 4.0 Chloride 106 Carbon Dioxide 28 Anion Gap 14 BUN 33 H Creatinine 0.99 Estim Creat Clear Calc 38.3 Estimated GFR 54 POC Glucose Random Glucose 100 Fasting Glucose Lactic Acid Calcium 10.9 H D Magnesium Total Bilirubin 0.6 AST 19 ALT 24 Alkaline Phosphatase 97 D Troponin I High Sens Total Protein 7.6 Albumin 4.3 Lipase 26 Vitamin B12 Procalcitonin TSH Urine Color Urine Appearance Urine pH Ur Specific [place] Urine Protein Urine Glucose (UA) Urine Ketones Urine Blood Urine Nitrite Ur Leukocyte Esterase Urine RBC Urine WBC Ur Squamous Epith Cells Urine Bacteria Urine Mucus Digoxin 0.6 L Respiratory Panel Yi Adenovirus (Rapid PCR) B.pert (TEM-PCR) B.parapertussis DNA PCR C. pneumoniae DNA (PCR) Coronavirus OC43 (PCR) Coronavirus HKU1 (PCR) Coronavirus 229E (PCR) COVID-19 ([facility]) Negative COVID-19 Clin Com See Note Coronavirus NL63 (PCR) Human Metapneumovir PCR Influenza A (RT-PCR) Influenza B (RT-PCR) Ur L.pneumophila Ag M. pneumoniae (PCR) Parainfluenza 1 (PCR) Parainfluenza 2 (PCR) Parainfluenza 3 (PCR) Parainfluenza 4 (PCR) RSV (PCR) Entero/Rhino (PCR) SARS-CoV-2 RNA (RT-PCR) Ur Strep pneumoniae Ag 03/30/21 03/31/21 03/31/21 21:23 07:18 07:18 WBC 7.6 RBC 3.92 L Hgb 12.0 Hct 35.4 L MCV 90.3 MCH 30.6 MCHC 33.9 RDW 13.8 Plt Count 189 D MPV 11.4 Immature Gran % (Auto) 0.4 Neut % (Auto) 65.3 Lymph % (Auto) 28.1 [place] % (Auto) 5.2 Eos % (Auto) 0.7 Baso % (Auto) 0.3 Lymph # (Auto) 2.1 [place] # (Auto) 0.4 Eos # (Auto) 0.1 Baso # (Auto) 0.0 Abs Immat Gran (auto) 0.03 Absolute Neuts (auto) 4.9 Absolute Nucleated RBC 0.000 Nucleated RBC % (auto) 0.0 PT INR APTT VBG pH 7.40 VBG pCO2 40 VBG pO2 45 VBG HCO3 25 VBG O2 Saturation 70.0 VBG Base Excess 0.5 Sodium 144 Potassium 3.4 Chloride 110 H Carbon Dioxide 25 Anion Gap 12 BUN 19 H Creatinine 0.72 Estim Creat Clear Calc 52.7 Estimated GFR > 60 POC Glucose Random Glucose 92 Fasting Glucose Lactic Acid Calcium 9.2 D Magnesium Total Bilirubin AST ALT Alkaline Phosphatase Troponin I High Sens Total Protein Albumin Lipase Vitamin B12 Procalcitonin TSH Urine Color Urine Appearance Urine pH Ur Specific [place] Urine Protein Urine Glucose (UA) Urine Ketones Urine Blood Urine Nitrite Ur Leukocyte Esterase Urine RBC Urine WBC Ur Squamous Epith Cells Urine Bacteria Urine Mucus Digoxin Respiratory Panel Yi Adenovirus (Rapid PCR) B.pert (TEM-PCR) B.parapertussis DNA PCR C. pneumoniae DNA (PCR) Coronavirus OC43 (PCR) Coronavirus HKU1 (PCR) Coronavirus 229E (PCR) COVID-19 ([facility]) COVID-19 Clin Com Coronavirus NL63 (PCR) Human Metapneumovir PCR Influenza A (RT-PCR) Influenza B (RT-PCR) Ur L.pneumophila Ag M. pneumoniae (PCR) Parainfluenza 1 (PCR) Parainfluenza 2 (PCR) Parainfluenza 3 (PCR) Parainfluenza 4 (PCR) RSV (PCR) Entero/Rhino (PCR) SARS-CoV-2 RNA (RT-PCR) Ur Strep pneumoniae Ag 03/31/21 03/31/21 03/31/21 07:18 09:57 11:06 WBC RBC Hgb Hct MCV MCH MCHC RDW Plt Count MPV Immature Gran % (Auto) Neut % (Auto) Lymph % (Auto) [place] % (Auto) Eos % (Auto) Baso % (Auto) Lymph # (Auto) [place] # (Auto) Eos # (Auto) Baso # (Auto) Abs Immat Gran (auto) Absolute Neuts (auto) Absolute Nucleated RBC Nucleated RBC % (auto) PT INR APTT VBG pH VBG pCO2 VBG pO2 VBG HCO3 VBG O2 Saturation VBG Base Excess Sodium Potassium Chloride Carbon Dioxide Anion Gap BUN Creatinine Estim Creat Clear Calc Estimated GFR POC Glucose Random Glucose Fasting Glucose Lactic Acid Calcium Magnesium Total Bilirubin AST ALT Alkaline Phosphatase Troponin I High Sens Total Protein Albumin Lipase Vitamin B12 Procalcitonin < 0.02 TSH Urine Color Urine Appearance Urine pH Ur Specific [place] Urine Protein Urine Glucose (UA) Urine Ketones Urine Blood Urine Nitrite Ur Leukocyte Esterase Urine RBC Urine WBC Ur Squamous Epith Cells Urine Bacteria Urine Mucus Digoxin Respiratory Panel Yi See Note Adenovirus (Rapid PCR) Not Detected B.pert (TEM-PCR) Not Detected B.parapertussis DNA PCR Not Detected C. pneumoniae DNA (PCR) Not Detected Coronavirus OC43 (PCR) Not Detected Coronavirus HKU1 (PCR) Not Detected Coronavirus 229E (PCR) Not Detected COVID-19 ([facility]) COVID-19 Clin Com Coronavirus NL63 (PCR) Not Detected Human Metapneumovir PCR Not Detected Influenza A (RT-PCR) Not Detected Influenza B (RT-PCR) Not Detected Ur L.pneumophila Ag Not Detected M. pneumoniae (PCR) Not Detected Parainfluenza 1 (PCR) Not Detected Parainfluenza 2 (PCR) Not Detected Parainfluenza 3 (PCR) Not Detected Parainfluenza 4 (PCR) Not Detected RSV (PCR) Not Detected Entero/Rhino (PCR) Not Detected SARS-CoV-2 RNA (RT-PCR) Not Detected Ur Strep pneumoniae Ag Not Detected 04/01/21 04/01/21 04/01/21 06:09 06:09 06:09 WBC 7.2 RBC 4.09 L Hgb 12.4 Hct 36.8 L MCV 90.0 MCH 30.3 MCHC 33.7 RDW 13.6 Plt Count 187 MPV 11.5 Immature Gran % (Auto) Neut % (Auto) Lymph % (Auto) [place] % (Auto) Eos % (Auto) Baso % (Auto) Lymph # (Auto) [place] # (Auto) Eos # (Auto) Baso # (Auto) Abs Immat Gran (auto) Absolute Neuts (auto) Absolute Nucleated RBC 0.000 Nucleated RBC % (auto) 0.0 PT INR APTT VBG pH VBG pCO2 VBG pO2 VBG HCO3 VBG O2 Saturation VBG Base Excess Sodium 141 Potassium 3.1 L Chloride 110 H Carbon Dioxide 25 Anion Gap 9 L BUN 10 Creatinine 0.67 Estim Creat Clear Calc 56.6 Estimated GFR > 60 POC Glucose Random Glucose 124 H Fasting Glucose Lactic Acid Calcium 8.8 Magnesium 1.6 Total Bilirubin AST ALT Alkaline Phosphatase Troponin I High Sens Total Protein Albumin Lipase Vitamin B12 361 Procalcitonin TSH 1.10 Urine Color Urine Appearance Urine pH Ur Specific [place] Urine Protein Urine Glucose (UA) Urine Ketones Urine Blood Urine Nitrite Ur Leukocyte Esterase Urine RBC Urine WBC Ur Squamous Epith Cells Urine Bacteria Urine Mucus Digoxin Respiratory Panel Yi Adenovirus (Rapid PCR) B.pert (TEM-PCR) B.parapertussis DNA PCR C. pneumoniae DNA (PCR) Coronavirus OC43 (PCR) Coronavirus HKU1 (PCR) Coronavirus 229E (PCR) COVID-19 ([facility]) COVID-19 Clin Com Coronavirus NL63 (PCR) Human Metapneumovir PCR Influenza A (RT-PCR) Influenza B (RT-PCR) Ur L.pneumophila Ag M. pneumoniae (PCR) Parainfluenza 1 (PCR) Parainfluenza 2 (PCR) Parainfluenza 3 (PCR) Parainfluenza 4 (PCR) RSV (PCR) Entero/Rhino (PCR) SARS-CoV-2 RNA (RT-PCR) Ur Strep pneumoniae Ag 04/02/21 04/02/21 04/07/21 06:35 06:35 05:35 WBC 6.6 RBC 3.83 L Hgb 11.4 L Hct 34.6 L MCV 90.3 MCH 29.8 MCHC 32.9 RDW 14.2 Plt Count 206 MPV 12.1 Immature Gran % (Auto) 0.3 Neut % (Auto) 49.7 Lymph % (Auto) 41.7 H [place] % (Auto) 5.0 Eos % (Auto) 2.7 Baso % (Auto) 0.6 Lymph # (Auto) 2.8 [place] # (Auto) 0.3 Eos # (Auto) 0.2 Baso # (Auto) 0.0 Abs Immat Gran (auto) 0.02 Absolute Neuts (auto) 3.3 Absolute Nucleated RBC 0.000 Nucleated RBC % (auto) 0.0 PT INR APTT VBG pH VBG pCO2 VBG pO2 VBG HCO3 VBG O2 Saturation VBG Base Excess Sodium 141 Potassium 3.5 Chloride 111 H Carbon Dioxide 23 Anion Gap 11 L BUN 7 L Creatinine 0.61 Estim Creat Clear Calc 62.2 Estimated GFR > 60 POC Glucose Random Glucose 113 Fasting Glucose Lactic Acid Calcium 8.8 Magnesium Total Bilirubin AST ALT Alkaline Phosphatase Troponin I High Sens Total Protein Albumin Lipase Vitamin B12 Procalcitonin 0.02 TSH Urine Color Urine Appearance Urine pH Ur Specific [place] Urine Protein Urine Glucose (UA) Urine Ketones Urine Blood Urine Nitrite Ur Leukocyte Esterase Urine RBC Urine WBC Ur Squamous Epith Cells Urine Bacteria Urine Mucus Digoxin Respiratory Panel Yi Adenovirus (Rapid PCR) B.pert (TEM-PCR) B.parapertussis DNA PCR C. pneumoniae DNA (PCR) Coronavirus OC43 (PCR) Coronavirus HKU1 (PCR) Coronavirus 229E (PCR) COVID-19 ([facility]) COVID-19 Clin Com Coronavirus NL63 (PCR) Human Metapneumovir PCR Influenza A (RT-PCR) Influenza B (RT-PCR) Ur L.pneumophila Ag M. pneumoniae (PCR) Parainfluenza 1 (PCR) Parainfluenza 2 (PCR) Parainfluenza 3 (PCR) Parainfluenza 4 (PCR) RSV (PCR) Entero/Rhino (PCR) SARS-CoV-2 RNA (RT-PCR) Ur Strep pneumoniae Ag 04/07/21 04/07/21 04/09/21 05:35 07:30 05:31 WBC RBC Hgb 11.8 L Hct 34.9 L MCV MCH MCHC RDW Plt Count MPV Immature Gran % (Auto) Neut % (Auto) Lymph % (Auto) [place] % (Auto) Eos % (Auto) Baso % (Auto) Lymph # (Auto) [place] # (Auto) Eos # (Auto) Baso # (Auto) Abs Immat Gran (auto) Absolute Neuts (auto) Absolute Nucleated RBC Nucleated RBC % (auto) PT INR APTT VBG pH VBG pCO2 VBG pO2 VBG HCO3 VBG O2 Saturation VBG Base Excess Sodium 142 Potassium 3.4 Chloride 108 Carbon Dioxide 28 Anion Gap 9 L BUN 24 H D Creatinine 0.83 Estim Creat Clear Calc 45.7 Estimated GFR > 60 POC Glucose 94 Random Glucose Fasting Glucose 100 H Lactic Acid Calcium 9.2 Magnesium Total Bilirubin 0.5 AST 16 ALT 20 Alkaline Phosphatase 61 D Troponin I High Sens Total Protein 5.5 L D Albumin 3.2 L D Lipase Vitamin B12 Procalcitonin TSH Urine Color Urine Appearance Urine pH Ur Specific [place] Urine Protein Urine Glucose (UA) Urine Ketones Urine Blood Urine Nitrite Ur Leukocyte Esterase Urine RBC Urine WBC Ur Squamous Epith Cells Urine Bacteria Urine Mucus Digoxin Respiratory Panel Yi Adenovirus (Rapid PCR) B.pert (TEM-PCR) B.parapertussis DNA PCR C. pneumoniae DNA (PCR) Coronavirus OC43 (PCR) Coronavirus HKU1 (PCR) Coronavirus 229E (PCR) COVID-19 ([facility]) COVID-19 Clin Com Coronavirus NL63 (PCR) Human Metapneumovir PCR Influenza A (RT-PCR) Influenza B (RT-PCR) Ur L.pneumophila Ag M. pneumoniae (PCR) Parainfluenza 1 (PCR) Parainfluenza 2 (PCR) Parainfluenza 3 (PCR) Parainfluenza 4 (PCR) RSV (PCR) Entero/Rhino (PCR) SARS-CoV-2 RNA (RT-PCR) Ur Strep pneumoniae Ag 04/09/21 04/09/21 04/09/21 05:31 05:31 15:40 WBC RBC Hgb Hct MCV MCH MCHC RDW Plt Count MPV Immature Gran % (Auto) Neut % (Auto) Lymph % (Auto) [place] % (Auto) Eos % (Auto) Baso % (Auto) Lymph # (Auto) [place] # (Auto) Eos # (Auto) Baso # (Auto) Abs Immat Gran (auto) Absolute Neuts (auto) Absolute Nucleated RBC Nucleated RBC % (auto) PT 12.2 INR 1.1 APTT 30.2 D VBG pH VBG pCO2 VBG pO2 VBG HCO3 VBG O2 Saturation VBG Base Excess Sodium 141 Potassium 3.5 Chloride 108 Carbon Dioxide 27 Anion Gap 10 L BUN 20 H Creatinine 0.73 Estim Creat Clear Calc 52.0 Estimated GFR > 60 POC Glucose Random Glucose 96 Fasting Glucose Lactic Acid Calcium 9.0 Magnesium Total Bilirubin AST ALT Alkaline Phosphatase Troponin I High Sens Total Protein Albumin Lipase Vitamin B12 Procalcitonin TSH Urine Color YELLOW Urine Appearance CLEAR Urine pH 6.0 Ur Specific [place] 1.010 Urine Protein NEG Urine Glucose (UA) NEG Urine Ketones NEG Urine Blood NEG Urine Nitrite NEG Ur Leukocyte Esterase 1+ H Urine RBC 0-2 Urine WBC 5-9 H Ur Squamous Epith Cells 1+ Urine Bacteria NONE Urine Mucus TRACE Digoxin Respiratory Panel Yi Adenovirus (Rapid PCR) B.pert (TEM-PCR) B.parapertussis DNA PCR C. pneumoniae DNA (PCR) Coronavirus OC43 (PCR) Coronavirus HKU1 (PCR) Coronavirus 229E (PCR) COVID-19 ([facility]) COVID-19 Clin Com Coronavirus NL63 (PCR) Human Metapneumovir PCR Influenza A (RT-PCR) Influenza B (RT-PCR) Ur L.pneumophila Ag M. pneumoniae (PCR) Parainfluenza 1 (PCR) Parainfluenza 2 (PCR) Parainfluenza 3 (PCR) Parainfluenza 4 (PCR) RSV (PCR) Entero/Rhino (PCR) SARS-CoV-2 RNA (RT-PCR) Ur Strep pneumoniae Ag 04/10/21 04/10/21 04/10/21 02:56 05:58 08:33 WBC 8.0 RBC 3.94 L Hgb 12.0 Hct 35.3 L MCV 89.6 MCH 30.5 MCHC 34.0 RDW 14.1 Plt Count 217 MPV 11.9 Immature Gran % (Auto) 0.4 Neut % (Auto) 59.4 Lymph % (Auto) 32.2 [place] % (Auto) 4.6 Eos % (Auto) 3.0 Baso % (Auto) 0.4 Lymph # (Auto) 2.6 [place] # (Auto) 0.4 Eos # (Auto) 0.2 Baso # (Auto) 0.0 Abs Immat Gran (auto) 0.03 Absolute Neuts (auto) 4.8 Absolute Nucleated RBC 0.000 Nucleated RBC % (auto) 0.0 PT 12.7 INR 1.1 APTT VBG pH VBG pCO2 VBG pO2 VBG HCO3 VBG O2 Saturation VBG Base Excess Sodium Potassium Chloride Carbon Dioxide Anion Gap BUN Creatinine Estim Creat Clear Calc Estimated GFR POC Glucose Random Glucose Fasting Glucose Lactic Acid Calcium Magnesium Total Bilirubin AST ALT Alkaline Phosphatase Troponin I High Sens 10.9 Total Protein Albumin Lipase Vitamin B12 Procalcitonin TSH Urine Color Urine Appearance Urine pH Ur Specific [place] Urine Protein Urine Glucose (UA) Urine Ketones Urine Blood Urine Nitrite Ur Leukocyte Esterase Urine RBC Urine WBC Ur Squamous Epith Cells Urine Bacteria Urine Mucus Digoxin Respiratory Panel Yi Adenovirus (Rapid PCR) B.pert (TEM-PCR) B.parapertussis DNA PCR C. pneumoniae DNA (PCR) Coronavirus OC43 (PCR) Coronavirus HKU1 (PCR) Coronavirus 229E (PCR) COVID-19 ([facility]) COVID-19 Clin Com Coronavirus NL63 (PCR) Human Metapneumovir PCR Influenza A (RT-PCR) Influenza B (RT-PCR) Ur L.pneumophila Ag M. pneumoniae (PCR) Parainfluenza 1 (PCR) Parainfluenza 2 (PCR) Parainfluenza 3 (PCR) Parainfluenza 4 (PCR) RSV (PCR) Entero/Rhino (PCR) SARS-CoV-2 RNA (RT-PCR) Ur Strep pneumoniae Ag 04/10/21 04/10/21 08:34 08:50 WBC RBC Hgb Hct MCV MCH MCHC RDW Plt Count MPV Immature Gran % (Auto) Neut % (Auto) Lymph % (Auto) [place] % (Auto) Eos % (Auto) Baso % (Auto) Lymph # (Auto) [place] # (Auto) Eos # (Auto) Baso # (Auto) Abs Immat Gran (auto) Absolute Neuts (auto) Absolute Nucleated RBC Nucleated RBC % (auto) PT 12.5 INR 1.1 APTT 33.5 VBG pH VBG pCO2 VBG pO2 VBG HCO3 VBG O2 Saturation VBG Base Excess Sodium Potassium Chloride Carbon Dioxide Anion Gap BUN Creatinine Estim Creat Clear Calc Estimated GFR POC Glucose 108 Random Glucose Fasting Glucose Lactic Acid Calcium Magnesium Total Bilirubin AST ALT Alkaline Phosphatase Troponin I High Sens Total Protein Albumin Lipase Vitamin B12 Procalcitonin TSH Urine Color Urine Appearance Urine pH Ur Specific [place] Urine Protein Urine Glucose (UA) Urine Ketones Urine Blood Urine Nitrite Ur Leukocyte Esterase Urine RBC Urine WBC Ur Squamous Epith Cells Urine Bacteria Urine Mucus Digoxin Respiratory Panel Yi Adenovirus (Rapid PCR) B.pert (TEM-PCR) B.parapertussis DNA PCR C. pneumoniae DNA (PCR) Coronavirus OC43 (PCR) Coronavirus HKU1 (PCR) Coronavirus 229E (PCR) COVID-19 ([facility]) COVID-19 Clin Com Coronavirus NL63 (PCR) Human Metapneumovir PCR Influenza A (RT-PCR) Influenza B (RT-PCR) Ur L.pneumophila Ag M. pneumoniae (PCR) Parainfluenza 1 (PCR) Parainfluenza 2 (PCR) Parainfluenza 3 (PCR) Parainfluenza 4 (PCR) RSV (PCR) Entero/Rhino (PCR) SARS-CoV-2 RNA (RT-PCR) Ur Strep pneumoniae Ag Airway Mallampati Class: II TM Dist: >3cm Neck ROM: Full Loose/Missing/Broken Teeth: Yes Heart: irreg irreg [id number] Lungs: +b/s bilterally Assessment and Plan Assessment Anesthesia Assessment: Anesthesia Plan Discussed and Chart Reviewed Final Anesthetic Review Family History of Problems with Anesthesia: No History of Problems with Anesthesia: No NPO: Yes ASA Class: IV Final Preanesthetic Review: No Changes in Pt Med Stat, Meds/Allgs Chart Reviewed, Consent Obtained/Reviewed and Anes Risks/Benef Reviewed Patient Risk: Intermediate Procedure Risk: Intermediate Assessment/Block/Sedation in SS: Assess/Block/Sedation-SS Anesthetic Plan Anesthetic Plan: MAC: and Agree w/ Assess. and Plan Disposition: Standard PACU
--- NOTE | 2021-04-10 13:09 | PC.NURSE ---
PT VOIDED IN THE BEDPAN 300ML CLEAR YELOOW IN THE BEDPAN
[2021-04-10] MEDS: iohexoL 300 MG/ML 50 ML INFUS..BTL IV (16:22)
[2021-04-10] MEDS: Lidocaine HCl 1 % MPF 5 ML VIAL INFILTRATI (16:23)
[2021-04-10] MEDS: Acetaminophen 325 MG TABLET 650 MG PO (19:48)
--- NOTE | 2021-04-10 19:48 | PC.NURSE ---
Pt is alert and orientedx3 but is confused and forgetful.She kept insisting that she had 2 pairs of glasses. Family was asked and they said that she only has 1 pair.Pt is S/P Kyphoplasty with 2 dressings to the upper back. There is strike through in the gauze.
[2021-04-10] MEDS: Atorvastatin Calcium 40 MG TABLET PO (20:41)
[2021-04-11] VITALS: BP 140/79; PULSE 83; RESP 17; TEMP 36; O2SAT 97
[2021-04-11] MEDS: Acetaminophen 325 MG TABLET 650 MG PO (05:49)
[2021-04-11 07:17] VITALS: BP 140/87; PULSE 84; RESP 16; TEMP 36; O2SAT 97
[2021-04-11] MEDS: Omeprazole 20 MG CAPSULE.DR PO (08:23)
[2021-04-11] MEDS: Lidocaine 4 % Patch ADH..PATCH 1 PATCH TRANSDERMA (08:23)
[2021-04-11] MEDS: ALPRAZolam 0.5 MG TABLET PO (08:23)
[2021-04-11] MEDS: amLODIPine Besylate 5 MG TABLET PO (08:23)
[2021-04-11] MEDS: Metoprolol Tartrate 100 MG TABLET PO (08:23)
[2021-04-11] MEDS: 0.9 % Sodium Chloride Flush 3 ML SYRINGE IVFLUSH (08:25)
[2021-04-11] MEDS: Digoxin 0.125 MG TABLET PO (08:26)
--- NOTE | 2021-04-11 09:00 | HO.POSTANES ---
Post Anesthesia Evaluation Post Anesthesia Evaluation Vital Signs: Vital Signs Temp Pulse Resp BP Pulse Ox 04/11/21 07:17 96.8 F 84 16 140/87 H 97 04/11/21 00:00 96.8 F 83 17 140/79 H 97 Anesthesia: Monitored Mental Status: Awake Pain Control: Satisfactory Nausea/Vomiting: None Hydration: Adequate Anesthesia-Related Issues: No Anes. Related Issues
--- NOTE | 2021-04-11 10:03 | P.DS_ITS ---
DS: Providers Provider Date of Service: 04/11/21 Date of admission: 03/30/21 21:49 Date of discharge: 04/11/21 Primary care physician: Lazara Oneill MD DS: Diagnosis Discharge Diagnosis (1) Compression fracture of T9 vertebra: Status: Acute DS: Summary Hospital Course Hospital Course: 80-year-old female who was sent to the emergency department by her daughter for evaluation of increased confusion and anxiety.?She states that the patient has been confused since last night.? The patient could not remember the name of her great grand children and was upset and was yelling.? She was also incontinent of stool which is unusual for her.? She had difficulty taking her pills and the daughter states that she found her pills all over the patient's bedroom which is again unusual for her.? The patient has had a cough and has complained of chills over the past 1-2 days.? The daughter took the patient's temperature but did not documented fever.? The daughter states the patient appeared short of breath and had some dyspnea on exertion which is new.? The daughter states the patient has had an unexplained weight loss over 1 year. ER course: The patient's laboratory evaluation revealed a normal CBC.? The patient's INR was slightly elevated 1.4.? BUN was elevated at 33 with a normal creatinine of 0.99.? Lactic acid was normal at 1.1.? Calcium was slightly high at 10.9.? Urinalysis was negative.? Chest x-ray is concerning for possible left lower lobe infiltrate.? Patient was treated with ceftriaxone 1 g IV and azithromycin 500 mg IV.? She also ordered to get normal saline IV x1 L. Hospital Course Admitted on CTX/Azithro and improved from resp/MS standpoint. Complained of mid- thoracic back pain.Subsequent MRI demonstrated: Vertebral plana with a severe biconcave compression fracture deformity at the T9 level with surrounding paraspinal soft tissue inflammatory changes. Marrow edema in the T9 vertebra and in the inferior endplate of T8. Bony retropulsion results in [id number] central canal stenosis and moderate ventral cord deformity. No definite cord signal changes. No visible epidural fluid collection. On 04/10/21 underwent successful kyphoplasy; 04/11 pt screened by PT and deemed ready for D/C. At this time, medically acceptable for same\. Time Spent with Patient Time attestation: Total time spent providing and/or coordinating discharge services: Discharge coordination time: Greater than 30 minutes Quality: Stroke Does the patient have a stroke diagnosis?: No Physical Exam Vital Signs: Vital Signs: Last Vital Signs Temp 96.8 F 04/11/21 07:17 Pulse 84 04/11/21 07:17 Resp 16 04/11/21 07:17 BP 140/87 H 04/11/21 07:17 Pulse Ox 97 04/11/21 07:17 BMI result Body Mass Index 20.6 Const: Other: comfortable...NAD Resp: Other: clear A/P. no rales/wheezes Cardio: Other: -S4 +S1/S2 _S3 M/R/G GI: Other: soft NT/ND. NABS x 4 quads Back/Spine/Pelvis: Other: Lidoderm patch on Extrem: Other: no edema bilat Discharge Plan Discharge Patient Disposition: Home Health Service Discharge Diagnosis: encephalopathy, T9 compression fracture Referrals: [facility] [Outside] - 1 Day (DETENTION, PLEASE CALL [phone] IF YOU HAVE NOT HEARD FROM A NURSE BY NOON TOMORROW 04/04. ) Geoffrey Washington MD [Physician] - 1 Month Lazara Oneill MD [Primary Care Provider] - 1 Week Discharge Medications: New atorvastatin 40 mg Tablet 40 mg PO BEDTIME Qty: 30 0RF lidocaine [Lidocaine Pain Relief] 4 % Adhesive Patch,Medicated 1 patch transdermal DAILY Qty: 30 0RF Protocol: Apply to: Apply to: T9 vertebra calcitonin (salmon) 200 unit/actuation [place],Non-Aerosol 1 spray intranasal (ALT) DAILY Qty: 3.7 0RF Continued metoprolol tartrate 100 mg tablet 100 mg PO BID 90 Days Qty: 180 3RF Eliquis 2.5 mg tablet 2.5 mg PO BID 30 Days Qty: 60 5RF omeprazole 20 mg capsule,delayed release(DR/EC) 1 cap PO DAILY 0RF melatonin 5 mg Tablet 5 mg PO BEDTIME PRN (Reason: Sleep) 0RF calcium carbonate-vitamin D3 [Caltrate with Vitamin D3] 600 mg(1,500mg) -800 unit Tablet 1 tab PO DAILY 0RF trazodone 50 mg tablet 0.5 - 1 tab PO BEDTIME PRN (Reason: insomnia) 0RF digoxin 125 mcg (0.125 mg) tablet 125 mcg PO TUWETH 0RF amlodipine 10 mg tablet 10 mg PO DAILY 0RF alprazolam 0.5 mg tablet 0.5 mg PO BID PRN (Reason: Anxiety) 0RF Discharge Orders: Discharge Order (Routine); Ordered 04/11/21 Ordered By: Ramu Cole Diet: advance to usual diet Activity on Discharge: As tolerated Stand Alone Forms: Patient Portal Discharge page Care Plan Goals: pain relief from compression fracture encephalopathy vs. cognitive impairment Health Concerns: compression fracture, encephalopathy vs. cognitive impairment Plan of Treatment: pain control: calcitonin spray, lidocaine patch, acetaminophen encephalopathy vs cognitive impairment: follow up with Neurology take atorvastatin 40 mg daily for cardiovascular event prevention Assessment: see Discharge Summary Patient Instructions: Vertebral Compression Fracture (DC) Discharge Date/Time: 04/11/21 10:32
--- NOTE | 2021-04-11 11:31 | W.MHC.F2F ---
Service Date Service Date: 04/11/21 Encounter Date of encounter: 04/11/21 Encounter: Inpatient hospitalization Reasons for Services Signs and symptoms assessed: Unsteady gait Reason for long term: neurological assessment and postoperative assessment and/or care Reason for physical therapy: home safety and mobility and gait/transfer training Homebound: Leaving the home is medically contraindicated at this time without the asist of a device and/or another person due th the listed conditions above and below. Reason homebound: unsteady gait / fall risk, leg weakness and unable to drive Certification: Based on the above findings, I certify that this patient is confined to the home and needs intermittent long term care, physical therapy and/or speech therapy, or continues to need occupational therapy. The patient is under my care, and I have initiated the establishment of the plan of care. The patient will be followed by a physician who will periodically review the plan of care.
--- NOTE | 2021-04-11 15:05 | MHC.CM.PN ---
PT DISCHARGED HOME W/NEW [facility] FOR SN AND HOME PT W/FAMILY FOR TRANSPORT
== END 2021-04-11 10:32 | disposition home health service (06) | DRG 515 ==
LOC: HO.ED 21:54 → HO.EDOVER 22:08 → HO.S3 03-31 15:05
PROVIDERS: Family Medicine; Internal Medicine; Radiology Diagnostic Radiology; Admitting Provider Hospitalist; Emergency Provider Emergency Medicine Emergency Medical Services; PCP Internal Medicine; Visit Provider Hospitalist
PROC: 0PS43ZZ Reposition Thoracic Vertebra, Percutaneous Approach (ICD-10-PCS; principal; 2021-04-10 13:00)
DX: S22.079A Unspecified fracture of T9-T10 vertebra, initial encounter for closed fracture (principal); G92.8 Other toxic encephalopathy; I50.32 Chronic diastolic (congestive) heart failure; I48.19 Other persistent atrial fibrillation; I48.91 Unspecified atrial fibrillation; E87.6 Hypokalemia; M81.0 Age-related osteoporosis without current pathological fracture; I11.0 Hypertensive heart disease with heart failure; E83.52 Hypercalcemia; F01.50 Vascular dementia, unspecified severity, without behavioral disturbance, psychotic disturbance, mood disturbance, and anxiety; K21.9 Gastro-esophageal reflux disease without esophagitis; F41.9 Anxiety disorder, unspecified; X58.XXXA Exposure to other specified factors, initial encounter; Z85.840 Personal history of malignant neoplasm of eye; Z20.822 Contact with and (suspected) exposure to COVID-19; Z79.01 Long term (current) use of anticoagulants; Z79.899 Other long term (current) drug therapy
CPT/HCPCS: 22513; 36415; 70450; 71045; 71250; 72128; 72146; 80048; 80053; 80162; 81001; 81003; 82607; 82803; 82947; 83605; 83690; 83735; 84145; 84443; 84484; 85014; 85018; 85025; 85027; 85610; 85730; 87040; 87086; 87449; 87633; 87635; 87899; 93005; 96365; 96367; 97162; 99285; J0456; J0690; J0696; Q9967

== ENCOUNTER 2021-04-18 08:08 | Emergency (ER) | payer MEDICARE, OTHER, SELFPAY ==
[2021-04-18 08:15] VITALS: BP 130/75; PULSE 78; RESP 18; TEMP 35.6; O2SAT 96
--- NOTE | 2021-04-18 08:42 | ED.BACK ---
HPI - Back Pain/Injury General Chief Complaint: Back Pain/Injury Stated Complaint: Back Pain S/P Surgery Time Seen by Provider: 04/18/21 08:42 Source: patient Mode of arrival: ambulatory Limitations: no limitations History of Present Illness HPI Narrative: Patient had compression fracture and arthroplasty done by invasive radiology. Sent in by [facility] for pain. Daughter wants to take her home with services. Pain not improving with tylenol and motrin alternating. MD elicited complaint: back pain Pertinent past history: recent trauma Onset (ago): week(s) Timing: constant Severity: mild Quality: sharp Location: lumbar spine Exacerbating factors: movement Relieving factors: none Related Data Home Medications Medication Instructions Recorded Confirmed omeprazole 20 mg capsule,delayed 1 cap PO DAILY 02/26/20 03/30/21 release amlodipine 10 mg tablet 10 mg PO DAILY 03/16/20 03/30/21 calcium carbonate 600 mg-vitamin 1 tab PO DAILY 09/07/20 03/30/21 D3 20 mcg (800 unit) tablet (Caltrate with Vitamin D3) melatonin 5 mg tablet 5 mg PO BEDTIME PRN 09/07/20 03/30/21 alprazolam 0.5 mg tablet 0.5 mg PO BID PRN 12/14/20 03/30/21 trazodone 50 mg tablet 0.5 - 1 tab PO BEDTIME PRN 03/30/21 03/30/21 Previous Rx's Medication Instructions Recorded metoprolol tartrate 100 mg tablet 100 mg PO BID 90 Days #180 tab 09/22/20 apixaban 2.5 mg tablet (Eliquis) 2.5 mg PO BID 30 Days #60 tab 11/03/20 atorvastatin 40 mg tablet 40 mg PO BEDTIME #30 tab 04/03/21 calcitonin (salmon) 200 1 spray INTRANASAL (ALT) DAILY 04/03/21 unit/actuation nasal spray #3.7 ml lidocaine 4 % topical patch 1 patch TRANSDERMAL DAILY #30 ea 04/03/21 (Lidocaine Pain Relief) digoxin 125 mcg (0.125 mg) tablet 125 mcg PO TUWETHFR 90 Days #52 tab 04/12/21 morphine concentrate 10 mg/0.5 mL 5 mg (0.25 mL) PO Q6H PRN #50 ea 04/18/21 oral syringe (FOR ORAL USE ONLY) Allergies Allergy/AdvReac Type Severity Reaction Status Date / Time No Known Allergies Allergy Verified 03/31/21 19:48 Review of Systems Constitutional: Constitutional: Reports no additional constitutional complaints Eyes: Eyes: Reports no additional eye complaints ENT: Denies dizziness Cardiovascular: Cardiovascular: Reports no additional cardiovascular complaints Respiratory: Respiratory: Reports as per HPI Gastrointestinal: Gastrointestinal: Reports no additional gastrointestinal complaints Genitourinary: Genitourinary: Reports no additional female genitourinary complaints Musculoskeletal: Musculoskeletal: Reports no additional musculoskeletal complaints Integumentary/Breasts: Skin/Breast: Denies rash Neurologic: Reports system reviewed and no additional complaints, except as documented, Denies dizziness and Denies Sensory deficit (Neuro) Psychiatric: Psychiatric: Denies anxiety PMFSH Past Medical History Medical History Anxiety Atrial fibrillation with controlled ventricular rate Depression Diastolic heart failure GERD (gastroesophageal reflux disease) History of rib fracture HTN (hypertension) Ocular melanoma Social History Social History Household Members: Children Housing: House Do you presently have visiting nurse or other home services: No Alcohol intake: never Patient Tobacco Use Status: Never used Tobacco Second Hand Smoke Exposure: No Use of substances other than those prescribed or required for medical reasons: No Advance Directives: Yes Advance Directives Information Provided: No Advance Directives on File: No Advance Directives Date on File: 09/07/20 service: No Current occupational status: retired Physical Exam Vital Signs: Vital Signs: Last Vital Signs Temp 96.1 F L 04/18/21 08:15 Pulse 84 04/18/21 09:04 Resp 18 04/18/21 09:04 BP 128/80 04/18/21 09:04 Pulse Ox 98 04/18/21 09:04 BMI result Body Mass Index 18.3 Neuro: Sensory Exam: No Sensory deficit (Neuro) Course Reevaluation(s) Reevaluation #1: seen and plan with CM is to make the patient pallative care and dc on liquid morphine Time: 10:56 MDM - Back Pain/Injury Lab Data Result diagrams: 04/18/21 08:56 04/18/21 08:56 Labs: Lab Results 04/18/21 04/18/21 Range/Units 08:56 08:56 WBC 9.4 (4.8-10.8) X10*3/uL RBC 4.43 (4.20-5.50) X10*6/uL Hgb 13.5 (12.0-16.0) g/dl Hct 40.4 (37.0-47.0) % MCV 91.2 (80.0-98.0) fL MCH 30.5 (27.0-33.0) pg MCHC 33.4 (31.0-35.0) g/dl RDW 14.5 (11.0-16.0) % Plt Count 307 D (160-400) X10*3/uL MPV 11.5 (9.4-12.3) fL Immature Gran % (Auto) 0.3 (0.0-0.4) % Neut % (Auto) 74.6 H (45-73) % Lymph % (Auto) 20.4 (20-40) % [place] % (Auto) 3.7 (2-11) % Eos % (Auto) 0.7 (0-4) % Baso % (Auto) 0.3 (0-2) % Lymph # (Auto) 1.9 (1.2-4.9) X10*3/uL [place] # (Auto) 0.4 (0.1-1.2) X10*3/uL Eos # (Auto) 0.1 (0.0-0.4) X10*3/uL Baso # (Auto) 0.0 (0.0-0.2) X10*3/uL Abs Immat Gran (auto) 0.03 (0.00-0.03) X10*3/uL Absolute Neuts (auto) 7.0 (2.0-8.3) x10*3/uL Absolute Nucleated RBC 0.000 (0.0-0.012) X10*3/uL Nucleated RBC % (auto) 0.0 (0.0-0.2) /100WBC Sodium 142 (135-145) mmol/L Potassium 3.7 (3.3-5.1) mmol/L Chloride 105 (96-108) mmol/L Carbon Dioxide 30 H (22-29) mmol/L Anion Gap 11 L (12-20) BUN 17 H (9-16) mg/dL Creatinine 0.94 (0.5-1.4) mg/dL Estim Creat Clear Calc 33.6 Estimated GFR 57 Random Glucose 169 H (60-115) mg/dL Calcium 10.4 H D (8.4-10.2) mg/dL Total Protein 7.1 D (6.5-8.0) g/dL Albumin 4.2 D (3.5-5.0) g/dL Discharge Plan Discharge Clinical Impression: Compression fracture of T9 vertebra, Lumbar radiculopathy Patient Disposition: Home, Self-Care Instructions: Kyphoplasty (DC), Back Pain (ED) Prescriptions: New morphine concentrate 10 mg/0.5 mL syringe 5 mg PO Q6H PRN (Reason: back pain) Qty: 50 0RF No Action metoprolol tartrate 100 mg tablet 100 mg PO BID 90 Days Qty: 180 3RF Eliquis 2.5 mg tablet 2.5 mg PO BID 30 Days Qty: 60 5RF digoxin 125 mcg (0.125 mg) tablet 125 mcg PO WE 90 Days Qty: 52 0RF Rx Instructions: Please call and schedule an appt omeprazole 20 mg capsule,delayed release(DR/EC) 1 cap PO DAILY 0RF melatonin 5 mg Tablet 5 mg PO BEDTIME PRN (Reason: Sleep) 0RF calcium carbonate-vitamin D3 [Caltrate with Vitamin D3] 600 mg(1,500mg) -800 unit Tablet 1 tab PO DAILY 0RF trazodone 50 mg tablet 0.5 - 1 tab PO BEDTIME PRN (Reason: insomnia) 0RF atorvastatin 40 mg Tablet 40 mg PO BEDTIME Qty: 30 0RF lidocaine [Lidocaine Pain Relief] 4 % Adhesive Patch,Medicated 1 patch transdermal DAILY Qty: 30 0RF Protocol: Apply to: Apply to: T9 vertebra calcitonin (salmon) 200 unit/actuation [place],Non-Aerosol 1 spray intranasal (ALT) DAILY Qty: 3.7 0RF amlodipine 10 mg tablet 10 mg PO DAILY 0RF alprazolam 0.5 mg tablet 0.5 mg PO BID PRN (Reason: Anxiety) 0RF Referrals: Lazara Oneill MD [Primary Care Provider] - 10 days
[2021-04-18 09:03] LABS: Basophils Percent Auto 0.3 % (0-2); Eosinophils Absolute Auto 0.1 X10*3/uL (0.0-0.4); Eosinophils Percent Auto 0.7 % (0-4); Hematocrit 40.4 % (37.0-47.0); Hemoglobin 13.5 g/dl (12.0-16.0); Imm Gran Abs Auto 0.03 X10*3/uL (0.00-0.03); Imm Gran Pct Auto 0.3 % (0.0-0.4); Lymphocytes Absolute Auto 1.9 X10*3/uL (1.2-4.9); Lymphocytes Percent Auto 20.4 % (20-40); MANUAL DIFF FLAG NO; Mean Corpuscular HGB Conc 33.4 g/dl (31.0-35.0); Mean Corpuscular Hemoglobin 30.5 pg (27.0-33.0); Mean Corpuscular Volume 91.2 fL (80.0-98.0); Mean Platelet Volume 11.5 fL (9.4-12.3); Monocytes Absolute Auto 0.4 X10*3/uL (0.1-1.2); Monocytes Percent Auto 3.7 % (2-11); Neutrophils Percent Auto 74.6 % (45-73); Platelet Count 307 X10*3/uL (160-400); Red Blood Count 4.43 X10*6/uL (4.20-5.50); Red Cell Distribution Width 14.5 % (11.0-16.0); White Blood Count 9.4 X10*3/uL (4.8-10.8)
[2021-04-18 09:04] VITALS: BP 128/80; PULSE 84; RESP 18; O2SAT 98; BMI 18.3
[2021-04-18 09:15] LABS: Anion Gap 11 (12-20); Blood Urea Nitrogen 17 mg/dL (9-16); Calcium 10.4 mg/dL (8.4-10.2); Carbon Dioxide 30 mmol/L (22-29); Chloride 105 mmol/L (96-108); Creatinine Clr Calc Pharmacy 33.6; Estimated Glomerular Filt Rate 57; Glucose Random 169 mg/dL (60-115); Potassium 3.7 mmol/L (3.3-5.1); Sodium 142 mmol/L (135-145)
[2021-04-18 09:22] LABS: Albumin Level 4.2 g/dL (3.5-5.0)
[2021-04-18] MEDS: Gabapentin 100 MG CAPSULE PO (09:25)
[2021-04-18 10:09] LABS: Total Protein 7.1 g/dL (6.5-8.0)
--- NOTE | 2021-04-18 11:30 | MHC.CM.ED ---
Received case management consult from Dr Crook. Patient came to the ER due to back pain. Patient had kyphoplasty at [facility] last week. Patient was d/c'd home with [facility]. Patient has been experiencing increased pain without relief. Patient's PCP has refused to prescribe patient pain meds and stated go to the ER . [facility] has been trying to transition patient to hospice. However, PCP will not sign hospice orders. Patient lives at home with her daughter, uses a rolling walker for mobility. Daughter will email T/W a copy of her HCP. New MOLST completed with daughter and Dr Crook. Patient will return home with [facility]. Plan of care will be palliative. phys assistant has been asked to arrange a follow up apppointment with [facility] pain management. Daughter's uncle will help transport patient home. Dr Crook will write a RX for liquid Morphine. Patient, daughter, Misty العلي and Dr Crook aware. Continue to monitor for d/c needs.
== END 2021-04-18 11:16 | disposition home or self-care (01) ==
PROVIDERS: Emergency Provider Emergency Medicine; PCP Internal Medicine
DX: M54.16 Radiculopathy, lumbar region (principal); M54.50 Low back pain, unspecified; S22.070D Wedge compression fracture of T9-T10 vertebra, subsequent encounter for fracture with routine healing; X58.XXXD Exposure to other specified factors, subsequent encounter; I10 Essential (primary) hypertension; I48.91 Unspecified atrial fibrillation; Z98.890 Other specified postprocedural states; Z79.01 Long term (current) use of anticoagulants; Z79.02 Long term (current) use of antithrombotics/antiplatelets
CPT/HCPCS: 36415; 80048; 82040; 84155; 85025; 99284

== ENCOUNTER 2021-05-30 13:42 | Emergency (ER) | payer MEDICARE, OTHER, SELFPAY ==
--- NOTE | ~2021-05-30 | CT_ITS ---
EXAMINATION: CT BRAIN AND CT CERVICAL SPINE WITHOUT CONTRAST. CLINICAL INFORMATION: Fall. On blood thinners. COMPARISON: None TECHNIQUE: 5 mm thin axial and reformatted 2 mm thin sagittal and coronal images of brain were obtained. Axial 3 mm thin and reformatted 2 mm thin sagittal and coronal images of cervical spine were obtained. DLP [id number] FINDINGS: Brain: There is no acute intra-axial, extra-axial bleed, masses or midline shift. There is no acute infarction in evolution. There is subtle periventricular hypodensity in both cerebral hemispheres slightly more prominent in the anterior limb of internal capsule right greater than left. There is likely lacunar infarction in the right frontal centrum semiovale. Bone windows reveal on no calvarial abnormality. There is no scalp soft tissue abnormality. Bilateral paranasal sinuses and mastoid air cells are well aerated. There is are 3 metallic foreign bodies along the right anterior lobe. Cervical spine: There is exaggerated cervical lordosis. The vertebral heights are normal. There is mild retrolisthesis C3 over C4. There is loss of C3-C4 disc height. Rest of the disc heights are normal. The craniovertebral junction and the C1-C2 alignment is normal. There is no visible acute fracture, dislocation or subluxation seen. There are small bone fragments adjacent to the left of the dense likely loose bodies from old injury or avulsed enthesophytes. Mild degenerative facet joint changes are seen bilaterally. Bilateral TM joints and the mandible appears unremarkable. The airways is widely patent. The lung apices are clear. CT/CT cervical spine wo con IMPRESSION: No acute intracranial process seen. Chronic microvascular ischemic changes in both cerebral hemispheres especially in the centrum semiovale. Slightly exaggerated cervical lordosis. No visible acute fracture or dislocation seen. Grade 1 retrolisthesis C3 over C4 with loss of disc height C3-C4 disc level with posterior spondylosis.
[2021-05-30 13:48] VITALS: BP 120/61; BP 133/77; PULSE 70; PULSE 90; TEMP 36.5; O2SAT 97; O2SAT 98; BMI 19.1
--- NOTE | 2021-05-30 14:24 | ED_ITS ---
HPI - General Adult General Chief complaint: Fall Stated complaint: FALL,RECTAL BLEED,-LOC,+COLLAR,+THINNERS Time Seen by Provider: 05/30/21 13:50 Source: patient and EMS Mode of arrival: EMS Limitations: other (Alzheimer's dementia) History of Present Illness HPI narrative: Patient comes to the emergency room after a fall. According to EMS, approximately 12 hours ago patient fell, patient states that she slipped off her commode. Patient states that she does not remember if she hit her head. After the fall, patient was able to crawl into her daughter's bedroom for help. A visiting nurse today advised him to come to the emergency room for further evaluation because patient is on Eliquis. Patient states that she does not remember what happened, patient states that she is aware that she has Alzheimer's and forgets things. At this time, patient has no complaints. Related Data Home Medications Medication Instructions Recorded Confirmed omeprazole 20 mg capsule,delayed 1 cap PO DAILY 02/26/20 03/30/21 release amlodipine 10 mg tablet 10 mg PO DAILY 03/16/20 03/30/21 calcium carbonate 600 mg-vitamin 1 tab PO DAILY 09/07/20 03/30/21 D3 20 mcg (800 unit) tablet (Caltrate with Vitamin D3) melatonin 5 mg tablet 5 mg PO BEDTIME PRN 09/07/20 03/30/21 alprazolam 0.5 mg tablet 0.5 mg PO BID PRN 12/14/20 03/30/21 trazodone 50 mg tablet 0.5 - 1 tab PO BEDTIME PRN 03/30/21 03/30/21 Previous Rx's Medication Instructions Recorded metoprolol tartrate 100 mg tablet 100 mg PO BID 90 Days #180 tab 09/22/20 calcitonin (salmon) 200 1 spray INTRANASAL (ALT) DAILY 04/03/21 unit/actuation nasal spray #3.7 ml lidocaine 4 % topical patch 1 patch TRANSDERMAL DAILY #30 ea 04/03/21 (Lidocaine Pain Relief) digoxin 125 mcg (0.125 mg) tablet 125 mcg PO 90 Days #52 tab 04/12/21 morphine concentrate 10 mg/0.5 mL 5 mg (0.25 mL) PO Q6H PRN #50 ea 04/18/21 oral syringe (FOR ORAL USE ONLY) morphine concentrate 100 mg/5 mL 5 mg (0.25 mL) PO Q6H PRN #30 ml 04/18/21 (20 mg/mL) oral solution apixaban 2.5 mg tablet (Eliquis) 2.5 mg PO BID 30 Days #60 tab 05/08/21 atorvastatin 40 mg tablet 40 mg PO BEDTIME #30 tab 05/10/21 cefuroxime axetil 250 mg tablet 250 mg PO BID #14 tab 05/30/21 Allergies Allergy/AdvReac Type Severity Reaction Status Date / Time No Known Allergies Allergy Verified 03/31/21 19:48 Review of Systems Review of Systems: Constitutional : No fever ENT/Mouth : No ear pain, no sinus pain Eyes: No eye pain Cardiovascular : No chest pain or shortness of breath Respiratory : No cough or dyspnea Gastrointestinal : No nausea vomiting or diarrhea, no abdominal pain Genitourinary : No dysuria Musculoskeletal : No joint pain, No Myalgias, No Joint Swelling Skin : No Skin Lesions, No rash Neuro : No headache Psych : No SI Heme/Lymph: No bleeding Endocrine : No Polyuria, No Polydipsia [facility] Past Medical History Medical History Anxiety Atrial fibrillation with controlled ventricular rate Depression Diastolic heart failure GERD (gastroesophageal reflux disease) History of rib fracture HTN (hypertension) Ocular melanoma Social History Social History Household Members: Children Housing: House Do you presently have visiting nurse or other home services: No Alcohol intake: never Patient Tobacco Use Status: Never used Tobacco Second Hand Smoke Exposure: No Advance Directives: Yes Advance Directives on File: Yes Advance Directives Date on File: 04/18/21 service: No Current occupational status: retired Physical Exam ED Vital Signs: Vital Signs - 24 hr 05/30/21 13:48 05/30/21 15:15 Temperature 97.7 F 97.7 F Pulse Rate 70 71 Respiratory Rate 14 Blood Pressure 120/61 112/56 L Pulse Oximetry 97 97 BMI result Body Mass Index 19.1 Const Other: Appearance: Alert. Oriented x1. No acute distress. Eyes: Pupils equal, round and reactive to light. ENT: Pharynx normal. Neck: Normal inspection. Neck supple. No lymph nodes noted. No crepitus, patient removed her C-collar, no palpable step-offs CVS: Normal heart rate and rhythm. Pulses normal. Normal S1 and S2 Respiratory: No respiratory distress. Breath sounds normal. No Wheezing. No rales Abdomen: Soft and nontender. No rigidity. No distention. Skin: Skin warm and dry. Normal skin color. Normal skin turgor. Extremities: No lower extremity edema. No Lacerations. No Rash Neuro: Oriented X 1. No motor deficit. No sensory deficit. Moving all extremities. No slurred speech. CN 2 through 12 grossly intact Psych: calm, cooperative, anxious Course Course Course Narrative: Patient denies having any pain at this time. When patient came in, patient states that sometimes she has blood when she wipes. Patient denies having hemorrhoids. Patient declined a rectal exam. Patient states she does not want take her pants off. Patient's H&H is stable. Chemistry at baseline, CT scan of head and neck do not show any acute up pathology. Patient does have a UTI, 1st dose of cefuroxime was given in the ED. Medical Decision Making Lab Data Result diagrams: 05/30/21 15:10 05/30/21 15:10 Labs: Lab Results 05/30/21 05/30/21 05/30/21 Range/Units 15:10 15:10 16:32 WBC 8.2 (4.8-10.8) X10*3/uL RBC 4.35 (4.20-5.50) X10*6/uL Hgb 13.2 (12.0-16.0) g/dl Hct 40.3 (37.0-47.0) % MCV 92.6 (80.0-98.0) fL MCH 30.3 (27.0-33.0) pg MCHC 32.8 (31.0-35.0) g/dl RDW 14.7 (11.0-16.0) % Plt Count 196 D (160-400) X10*3/uL MPV 11.7 (9.4-12.3) fL Immature Gran % (Auto) 0.2 (0.0-0.4) % Neut % (Auto) 66.9 (45-73) % Lymph % (Auto) 25.6 (20-40) % [place] % (Auto) 4.3 (2-11) % Eos % (Auto) 2.6 (0-4) % Baso % (Auto) 0.4 (0-2) % Lymph # (Auto) 2.1 (1.2-4.9) X10*3/uL [place] # (Auto) 0.4 (0.1-1.2) X10*3/uL Eos # (Auto) 0.2 (0.0-0.4) X10*3/uL Baso # (Auto) 0.0 (0.0-0.2) X10*3/uL Abs Immat Gran (auto) 0.02 (0.00-0.03) X10*3/uL Absolute Neuts (auto) 5.5 (2.0-8.3) x10*3/uL Absolute Nucleated RBC 0.000 (0.0-0.012) X10*3/uL Nucleated RBC % (auto) 0.0 (0.0-0.2) /100WBC Sodium 143 (135-145) mmol/L Potassium 3.8 (3.3-5.1) mmol/L Chloride 108 (96-108) mmol/L Carbon Dioxide 27 (22-29) mmol/L Anion Gap 12 (12-20) BUN 17 H (9-16) mg/dL Creatinine 0.90 (0.5-1.4) mg/dL Estim Creat Clear Calc 36.6 Estimated GFR > 60 Random Glucose 102 (60-115) mg/dL Calcium 9.7 D (8.4-10.2) mg/dL Total Bilirubin 0.5 (0.0-1.0) mg/dL Direct Bilirubin 0.2 (0.0-0.5) mg/dL AST 21 (5-31) U/L ALT 31 (0-31) U/L Alkaline Phosphatase 103 D (39-117) U/L Total Protein 6.6 (6.5-8.0) g/dL Albumin 4.0 (3.5-5.0) g/dL Urine Color YELLOW Urine Appearance HAZY Urine pH 6.0 (5.0-8.0) Ur Specific [place] 1.015 (1.005-1.025) Urine Protein NEG (NEG-TRACE) MG/DL Urine Glucose (UA) NEG (NEG) MG/DL Urine Ketones 5 (NEG) MG/DL Urine Blood 2+ H (NEG) Urine Nitrite NEG (NEG) Ur Leukocyte Esterase 2+ H (NEG) Imaging Data Head and cervical spine CT: Radiologist's impression: FINDINGS: Brain: There is no acute intra-axial, extra-axial bleed, masses or midline shift. There is no acute infarction in evolution. There is subtle periventricular hypodensity in both cerebral hemispheres slightly more prominent in the anterior limb of internal capsule right greater than left. There is likely lacunar infarction in the right frontal centrum semiovale. Bone windows reveal on no calvarial abnormality. There is no scalp soft tissue abnormality. Bilateral paranasal sinuses and mastoid air cells are well aerated. There is are 3 metallic foreign bodies along the right anterior lobe. Cervical spine: There is exaggerated cervical lordosis. The vertebral heights are normal. There is mild retrolisthesis C3 over C4. There is loss of C3-C4 disc height. Rest of the disc heights are normal. The craniovertebral junction and the C1-C2 alignment is normal. There is no visible acute fracture, dislocation or subluxation seen. There are small bone fragments adjacent to the left of the dense likely loose bodies from old injury or avulsed enthesophytes. Mild degenerative facet joint changes are seen bilaterally. Bilateral TM joints and the mandible appears unremarkable. The airways is widely patent. The lung apices are clear. CT/CT cervical spine wo con IMPRESSION: No acute intracranial process seen. ? Chronic microvascular ischemic changes in both cerebral hemispheres especially in the centrum semiovale. ? Slightly exaggerated cervical lordosis. No visible acute fracture or dislocation seen. Grade 1 retrolisthesis C3 over C4 with loss of disc height C3-C4 disc level with posterior spondylosis. Discharge Plan Discharge Clinical Impression: Fall, Acute UTI Patient Disposition: Home, Self-Care Instructions: Fall Prevention for Older Adults (ED), Urinary Tract Infection in Older Adults (ED) Additional Instructions: Please follow-up with your primary care physician tomorrow. If you have any worsening or new symptoms, please return to the emergency room or call 911 Prescriptions: New cefuroxime axetil 250 mg tablet 250 mg PO BID Qty: 14 0RF No Action metoprolol tartrate 100 mg tablet 100 mg PO BID 90 Days Qty: 180 3RF digoxin 125 mcg (0.125 mg) tablet 125 mcg PO WE 90 Days Qty: 52 0RF Rx Instructions: Please call and schedule an appt Eliquis 2.5 mg tablet 2.5 mg PO BID 30 Days Qty: 60 5RF atorvastatin 40 mg tablet 40 mg PO BEDTIME Qty: 30 0RF omeprazole 20 mg capsule,delayed release(DR/EC) 1 cap PO DAILY 0RF melatonin 5 mg Tablet 5 mg PO BEDTIME PRN (Reason: Sleep) 0RF calcium carbonate-vitamin D3 [Caltrate with Vitamin D3] 600 mg(1,500mg) -800 unit Tablet 1 tab PO DAILY 0RF trazodone 50 mg tablet 0.5 - 1 tab PO BEDTIME PRN (Reason: insomnia) 0RF lidocaine [Lidocaine Pain Relief] 4 % Adhesive Patch,Medicated 1 patch transdermal DAILY Qty: 30 0RF Protocol: Apply to: Apply to: T9 vertebra calcitonin (salmon) 200 unit/actuation [place],Non-Aerosol 1 spray intranasal (ALT) DAILY Qty: 3.7 0RF morphine concentrate 10 mg/0.5 mL syringe 5 mg PO Q6H PRN (Reason: back pain) Qty: 50 0RF morphine concentrate 100 mg/5 mL (20 mg/mL) solution 5 mg PO Q6H PRN (Reason: pain) Qty: 30 0RF amlodipine 10 mg tablet 10 mg PO DAILY 0RF alprazolam 0.5 mg tablet 0.5 mg PO BID PRN (Reason: Anxiety) 0RF
[2021-05-30 15:15] VITALS: BP 112/56; PULSE 71; RESP 14; TEMP 36.5; O2SAT 97
[2021-05-30 15:17] LABS: MANUAL DIFF FLAG NO
[2021-05-30 15:19] LABS: Basophils Percent Auto 0.4 % (0-2); Eosinophils Absolute Auto 0.2 X10*3/uL (0.0-0.4); Eosinophils Percent Auto 2.6 % (0-4); Hematocrit 40.3 % (37.0-47.0); Hemoglobin 13.2 g/dl (12.0-16.0); Imm Gran Abs Auto 0.02 X10*3/uL (0.00-0.03); Imm Gran Pct Auto 0.2 % (0.0-0.4); Lymphocytes Absolute Auto 2.1 X10*3/uL (1.2-4.9); Lymphocytes Percent Auto 25.6 % (20-40); Mean Corpuscular HGB Conc 32.8 g/dl (31.0-35.0); Mean Corpuscular Hemoglobin 30.3 pg (27.0-33.0); Mean Corpuscular Volume 92.6 fL (80.0-98.0); Mean Platelet Volume 11.7 fL (9.4-12.3); Monocytes Absolute Auto 0.4 X10*3/uL (0.1-1.2); Monocytes Percent Auto 4.3 % (2-11); Neutrophils Absolute Auto 5.5 x10*3/uL (2.0-8.3); Neutrophils Percent Auto 66.9 % (45-73); Platelet Count 196 X10*3/uL (160-400); Red Blood Count 4.35 X10*6/uL (4.20-5.50); Red Cell Distribution Width 14.7 % (11.0-16.0); White Blood Count 8.2 X10*3/uL (4.8-10.8)
[2021-05-30 15:33] LABS: Alanine Aminotransferase 31 U/L (0-31); Alkaline Phosphatase 103 U/L (39-117); Anion Gap 12 (12-20); Aspartate Amino Transferase 21 U/L (5-31); Bilirubin Direct 0.2 mg/dL (0.0-0.5); Bilirubin Total 0.5 mg/dL (0.0-1.0); Blood Urea Nitrogen 17 mg/dL (9-16); Calcium 9.7 mg/dL (8.4-10.2); Carbon Dioxide 27 mmol/L (22-29); Chloride 108 mmol/L (96-108); Creatinine Clr Calc Pharmacy 36.6; Estimated Glomerular Filt Rate > 60; Glucose Random 102 mg/dL (60-115); Potassium 3.8 mmol/L (3.3-5.1); Sodium 143 mmol/L (135-145); Total Protein 6.6 g/dL (6.5-8.0)
--- NOTE | 2021-05-30 15:47 | MHC.CM.ED ---
Received notification from [facility] that patient is active with their agency. Referral made via [employer] so [facility] can follow for d/c needs. Continue to monitor for d/c needs.
[2021-05-30 16:48] LABS: Appearance Urine HAZY; Color Urine YELLOW; Glucose Urine UA NEG (NEG); Leukocyte Esterase Urine 2+ (NEG); Nitrite Urine NEG (NEG); Specific Gravity - Urine 1.015 (1.005-1.025); UACC Culture Trigger YES; Urine Blood 2+ (NEG); Urine Ketones 5 MG/DL (NEG); Urine Protein NEG (NEG-TRACE)
[2021-05-30 17:46] LABS: Bacteria Urine 2+ /LPF; Squamous Epithelial Cell Urine 1+ /LPF
[2021-05-30 17:49] VITALS: BP 126/66; PULSE 59; RESP 16; TEMP 36.5; O2SAT 97
[2021-05-30 17:51] LABS: WBC Clumps Urine NOTED
== END 2021-05-30 18:39 | disposition home or self-care (01) ==
PROVIDERS: Emergency Provider Emergency Medicine; PCP Internal Medicine
DX: N39.0 Urinary tract infection, site not specified (principal); Z91.81 History of falling; G30.9 Alzheimer's disease, unspecified
CPT/HCPCS: 36415; 70450; 72125; 80048; 80076; 81001; 81003; 85025; 87086; 99283; 99284

== ENCOUNTER → 2021-06-06 14:11 | Outpatient (BNVA) | payer MEDICARE, OTHER, SELFPAY | PROVIDERS: PCP Internal Medicine; Referring Provider Internal Medicine; Visit Provider Nurse Practitioner Family | DX: I11.0 Hypertensive heart disease with heart failure (principal); I50.30 Unspecified diastolic (congestive) heart failure; I48.19 Other persistent atrial fibrillation; Z79.01 Long term (current) use of anticoagulants; Z79.899 Other long term (current) drug therapy | CPT/HCPCS: Q3014 ==

== ENCOUNTER 2021-06-14 14:49 | Emergency (ER) | payer MEDICARE, OTHER, SELFPAY ==
--- NOTE | 2021-06-14 | ECG_ITS ---
Test Reason : CHEST PAIN Blood Pressure : / mmHG Vent. Rate : 075 BPM Atrial Rate : 000 BPM P-R Int : 000 ms QRS Dur : 094 ms QT Int : 348 ms P-R-T Axes : 000 -59 096 degrees QTc Int : 388 ms Atrial fibrillation with premature ventricular or aberrantly conducted complexes Left axis deviation Left ventricular hypertrophy with repolarization abnormality ( Sokolow-Leon , Romhilt-Farrell ) Anteroseptal infarct (cited on or before 29-MAR-2020) Abnormal ECG When compared with ECG of 10-APR-2021 02:02, Premature ventricular complexes are now Present Referred By: Generic ED Physician Electronically Signed By:ADRIANA MARTÍNEZ MD
--- NOTE | ~2021-06-14 | XR_ITS ---
EXAMINATION: XR CHEST CLINICAL INFORMATION: Chest pain. COMPARISON: 03/30/2021 chest radiograph. TECHNIQUE: Frontal view of the chest was obtained. FINDINGS: Mild opacification is seen at the left lung base. The lungs are otherwise clear. The heart and mediastinal structures are unremarkable. Field and right rib fractures are again noted. XR/XR chest 1V IMPRESSION: Mild opacities in the left lung base represents interval improvement from the previous study and likely represents pleural reflection/scarring. No acute cardiopulmonary process.
[2021-06-14 15:03] VITALS: BP 121/60; PULSE 83; RESP 16; TEMP 36.4; O2SAT 97; BMI 18.5
[2021-06-14 16:16] VITALS: BP 126/73; PULSE 82; RESP 15; O2SAT 95
[2021-06-14 16:36] LABS: MANUAL DIFF FLAG NO
[2021-06-14 16:37] LABS: Basophils Percent Auto 0.4 % (0-2); Eosinophils Absolute Auto 0.1 X10*3/uL (0.0-0.4); Eosinophils Percent Auto 1.1 % (0-4); Hematocrit 41.9 % (37.0-47.0); Imm Gran Abs Auto 0.03 X10*3/uL (0.00-0.03); Imm Gran Pct Auto 0.4 % (0.0-0.4); Lymphocytes Absolute Auto 2.2 X10*3/uL (1.2-4.9); Lymphocytes Percent Auto 27.1 % (20-40); Mean Corpuscular HGB Conc 33.4 g/dl (31.0-35.0); Mean Corpuscular Hemoglobin 30.4 pg (27.0-33.0); Mean Corpuscular Volume 90.9 fL (80.0-98.0); Mean Platelet Volume 11.2 fL (9.4-12.3); Monocytes Absolute Auto 0.4 X10*3/uL (0.1-1.2); Monocytes Percent Auto 5.4 % (2-11); Neutrophils Absolute Auto 5.3 x10*3/uL (2.0-8.3); Neutrophils Percent Auto 65.6 % (45-73); Platelet Count 287 X10*3/uL (160-400); Red Blood Count 4.61 X10*6/uL (4.20-5.50); Red Cell Distribution Width 13.8 % (11.0-16.0)
[2021-06-14 16:53] LABS: Anion Gap 13 (12-20); Blood Urea Nitrogen 24 mg/dL (9-16); Calcium 10.2 mg/dL (8.4-10.2); Carbon Dioxide 27 mmol/L (22-29); Chloride 102 mmol/L (96-108); Creatinine Clr Calc Pharmacy 43.7; Estimated Glomerular Filt Rate > 60; Glucose Random 79 mg/dL (60-115); Potassium 3.9 mmol/L (3.3-5.1); Sodium 138 mmol/L (135-145)
[2021-06-14 17:05] LABS: Troponin-I High Sensitivity 4.7 ng/L (<3.5-17.0)
--- NOTE | 2021-06-14 18:02 | ED_ITS ---
HPI - Chest Pain General Chief Complaint: Chest Pain Stated Complaint: chest pain Time Seen by Provider: 06/14/21 15:23 Source: patient Mode of arrival: EMS Limitations: no limitations History of Present Illness HPI narrative: 80-year-old female who presents emergency department for evaluation of chest pain patient states that the chest pain started this afternoon. She states that she was at rest when the pain came on. She points to her left anterior chest when asked to localize the pain. She states that the pain was a dull ache. The pain was moderate intensity She believes that lasted minutes. The pain did not radiate to her neck, jaw, back or arms. She had no diaphoresis, nausea or vomiting. She states she did feel little lightheaded with the pain. At the time of evaluation she was pain-free and was not in any distress. She states she has had similar pain in the past but cannot recall when her last episode occurred. MD complaint: chest pain Pertinent past history: other (Atrial fibrillation) Onset (ago): day(s) (1) Timing of current episode: episodic Prior episodes: No Onset: during rest Pain location: other (Left anterior chest) Pain radiation: none Severity: moderate Pain scale (0-10): 6 Quality: aching Relieving factors: nothing Exacerbating factors: nothing Treatment prior to arrival: none Risk Factors Coronary artery disease risk factors: hypertension Related Data On Oral Contraceptives: No Home Medications Medication Instructions Recorded Confirmed omeprazole 20 mg capsule,delayed 1 cap PO DAILY 02/26/20 06/07/21 release amlodipine 10 mg tablet 10 mg PO DAILY 03/16/20 06/07/21 calcium carbonate 600 mg-vitamin 1 tab PO DAILY 09/07/20 06/07/21 D3 20 mcg (800 unit) tablet (Caltrate with Vitamin D3) melatonin 5 mg tablet 5 mg PO BEDTIME PRN 09/07/20 06/07/21 alprazolam 0.5 mg tablet 0.5 mg PO BID PRN 12/14/20 06/07/21 lorazepam 0.5 mg tablet 0.5 mg PO BID 06/06/21 06/07/21 mirtazapine 15 mg tablet 15 mg PO DAILY tab 06/06/21 06/07/21 Previous Rx's Medication Instructions Recorded metoprolol tartrate 100 mg tablet 100 mg PO BID 90 Days #180 tab 09/22/20 calcitonin (salmon) 200 1 spray INTRANASAL (ALT) DAILY 04/03/21 unit/actuation nasal spray #3.7 ml lidocaine 4 % topical patch 1 patch TRANSDERMAL DAILY #30 ea 04/03/21 (Lidocaine Pain Relief) digoxin 125 mcg (0.125 mg) tablet 125 mcg PO WE 90 Days #52 tab 04/12/21 morphine concentrate 10 mg/0.5 mL 5 mg (0.25 mL) PO Q6H PRN #50 ea 04/18/21 oral syringe (FOR ORAL USE ONLY) apixaban 2.5 mg tablet (Eliquis) 2.5 mg PO BID 30 Days #60 tab 05/08/21 cefuroxime axetil 250 mg tablet 250 mg PO BID #14 tab 05/30/21 atorvastatin 40 mg tablet 40 mg PO BEDTIME #30 tab 06/02/21 Allergies Allergy/AdvReac Type Severity Reaction Status Date / Time morphine AdvReac Severe Alternate Verified 06/06/21 14:12 mental status Review of Systems Review of Systems: Yes all other systems are reviewed and are negative [facility] Past Medical History [facility] Narrative: Social history: The patient states she lives with her daughter. She denies tobacco use. She states she occasionally drinks alcohol. She denies drug use. Medical History Anxiety Atrial fibrillation with controlled ventricular rate Depression Diastolic heart failure GERD (gastroesophageal reflux disease) History of rib fracture HTN (hypertension) Ocular melanoma Surgical History No pertinent past surgical history Family History Family History Mother No problems noted. Father No problems noted. Social History Social History Household Members: Children Housing: House Do you presently have visiting nurse or other home services: No Alcohol intake: never Patient Tobacco Use Status: Never used Tobacco Second Hand Smoke Exposure: No Use of substances other than those prescribed or required for medical reasons: No Advance Directives: Yes Advance Directives on File: Yes Advance Directives Date on File: 04/18/21 service: No Current occupational status: retired Physical Exam Vital Signs: Vital Signs: Last Vital Signs Temp 97.6 F 06/14/21 15:03 Pulse 79 06/14/21 18:42 Resp 13 06/14/21 18:42 BP 150/81 H 06/14/21 18:42 Pulse Ox 95 06/14/21 16:16 BMI result Body Mass Index 18.5 Const: General: cooperative and no acute distress Orientati on/consciousness: oriented to person and oriented to place Limitations: no limitations HEENT: Head: Yes normal to inspection, Yes normocephalic and Yes atraumatic Ears: external ears normal General nose exam: Normal external nose present Face and sinus: Yes normal facial exam Mouth: Normal oral and palatal mucosa present Throat: Yes posterior oropharynx normal Eyes: General: appearance normal, both eyes and all related structures Pupils: Equal, round and reactive pupils present Neck: Neck: Yes normal visual inspection, Yes no lymphadenopathy, Yes trachea midline and Yes supple Chest: Chest palpation & inspection: normal inspection of the chest and normal palpation of entire chest wall Resp: Effort & Inspection: normal respiratory effort and able to speak in complete sentences Auscultation: clear to auscultation bilaterally Cardio: Rate: regular rate Rhythm: regular rhythm Heart sounds: S1 normal heart sound present, S2 normal heart sound present and no murmurs GI: Inspection: Yes normal to inspection Palpation (GI): Soft to palpation, nontender and no guarding Auscultation: normal bowel sounds : General: Yes no CVA tenderness Back/Spine/Pelvis: Back: no CVA tenderness Skin: General skin exam: no rashes or lesions noted Neuro: General: oriented to person and oriented to place Cranial nerves: Yes CN's II-XII intact bilaterally and Yes Equal, round and reactive pupils present Cognition (Neuro): normal cognition Motor exam (neuro): 5/5 motor strength present throughout Extrem: General: Yes normal to inspection Psych: Appearance: grossly normal Speech and movement: Normal speech and movement present Affect: normal affect Attitude: cooperative Course Course Course Narrative: 80-year-old female who presents emergency department for evaluation of chest pain that occurred this afternoon. The pain was located in her left anterior chest, came on at rest and lasted minutes. She had no other concerning associated symptoms. At the time of my evaluation she was pain-free. Laboratory evaluation EKG chest x-ray will be obtained. 1806: Laboratory evaluation: CBC and BMP were normal. High sensitivity troponin was detectable but not elevated at 4.7. Chest x-ray: No acute disease, improvement of previously noted infiltrate. See radiology impression below. IMPRESSION: Mild opacities in the left lung base represents interval improvement from the previous study and likely represents pleural reflection/scarring. No acute cardiopulmonary process. EKG: Atrial fibrillation with no acute findings and unchanged from an EKG on 04/10/2021 At this time I do not think that the patient's chest pain was secondary to myocardial infarction and atypical for coronary artery disease. The patient will be discharged home. She was advised to continue taking her medications and follow-up with PCP for re-evaluation. I did speak to the patient's daughter and she is going to pick the patient up. She told with the patient just completed a course of antibiotics for urinary tract infection she is concerned that the patient is still have a UTI. I did order straight cath urine collection for urinalysis on the patient. I will contact the daughter with this result. 1856: Urinalysis revealed 1+ leukocyte esterase. Microscopic revealed 9 WBCs no bacteria 1+ squamous cells. At this time, I do not think the patient needs a ntibiotics. MDM - Chest Pain Lab Data Result diagrams: 06/14/21 16:18 06/14/21 16:18 Labs: Lab Results 06/14/21 06/14/21 06/14/21 Range/Units 16:18 16:18 16:18 WBC 8.0 (4.8-10.8) X10*3/uL RBC 4.61 (4.20-5.50) X10*6/uL Hgb 14.0 (12.0-16.0) g/dl Hct 41.9 (37.0-47.0) % MCV 90.9 (80.0-98.0) fL MCH 30.4 (27.0-33.0) pg MCHC 33.4 (31.0-35.0) g/dl RDW 13.8 (11.0-16.0) % Plt Count 287 D (160-400) X10*3/uL MPV 11.2 (9.4-12.3) fL Immature Gran % (Auto) 0.4 (0.0-0.4) % Neut % (Auto) 65.6 (45-73) % Lymph % (Auto) 27.1 (20-40) % [place] % (Auto) 5.4 (2-11) % Eos % (Auto) 1.1 (0-4) % Baso % (Auto) 0.4 (0-2) % Lymph # (Auto) 2.2 (1.2-4.9) X10*3/uL [place] # (Auto) 0.4 (0.1-1.2) X10*3/uL Eos # (Auto) 0.1 (0.0-0.4) X10*3/uL Baso # (Auto) 0.0 (0.0-0.2) X10*3/uL Abs Immat Gran (auto) 0.03 (0.00-0.03) X10*3/uL Absolute Neuts (auto) 5.3 (2.0-8.3) x10*3/uL Absolute Nucleated RBC 0.000 (0.0-0.012) X10*3/uL Nucleated RBC % (auto) 0.0 (0.0-0.2) /100WBC Sodium 138 (135-145) mmol/L Potassium 3.9 (3.3-5.1) mmol/L Chloride 102 (96-108) mmol/L Carbon Dioxide 27 (22-29) mmol/L Anion Gap 13 (12-20) BUN 24 H (9-16) mg/dL Creatinine 0.78 (0.5-1.4) mg/dL Estim Creat Clear Calc 43.7 Estimated GFR > 60 Random Glucose 79 (60-115) mg/dL Calcium 10.2 (8.4-10.2) mg/dL Troponin I High Sens 4.7 D (<3.5-17.0) ng/L Urine Color Urine Appearance Urine pH (5.0-8.0) Ur Specific [place] (1.005-1.025) Urine Protein (NEG-TRACE) MG/DL Urine Glucose (UA) (NEG) MG/DL Urine Ketones (NEG) MG/DL Urine Blood (NEG) Urine Nitrite (NEG) Ur Leukocyte Esterase (NEG) Urine RBC (0) /HPF Urine WBC (0-4) /HPF Ur Squamous Epith Cells /LPF Urine Bacteria /LPF 06/14/21 Range/Units 18:27 WBC (4.8-10.8) X10*3/uL RBC (4.20-5.50) X10*6/uL Hgb (12.0-16.0) g/dl Hct (37.0-47.0) % MCV (80.0-98.0) fL MCH (27.0-33.0) pg MCHC (31.0-35.0) g/dl RDW (11.0-16.0) % Plt Count (160-400) X10*3/uL MPV (9.4-12.3) fL Immature Gran % (Auto) (0.0-0.4) % Neut % (Auto) (45-73) % Lymph % (Auto) (20-40) % [place] % (Auto) (2-11) % Eos % (Auto) (0-4) % Baso % (Auto) (0-2) % Lymph # (Auto) (1.2-4.9) X10*3/uL [place] # (Auto) (0.1-1.2) X10*3/uL Eos # (Auto) (0.0-0.4) X10*3/uL Baso # (Auto) (0.0-0.2) X10*3/uL Abs Immat Gran (auto) (0.00-0.03) X10*3/uL Absolute Neuts (auto) (2.0-8.3) x10*3/uL Absolute Nucleated RBC (0.0-0.012) X10*3/uL Nucleated RBC % (auto) (0.0-0.2) /100WBC Sodium (135-145) mmol/L Potassium (3.3-5.1) mmol/L Chloride (96-108) mmol/L Carbon Dioxide (22-29) mmol/L Anion Gap (12-20) BUN (9-16) mg/dL Creatinine (0.5-1.4) mg/dL Estim Creat Clear Calc Estimated GFR Random Glucose (60-115) mg/dL Calcium (8.4-10.2) mg/dL Troponin I High Sens (<3.5-17.0) ng/L Urine Color YELLOW Urine Appearance CLEAR Urine pH 6.0 (5.0-8.0) Ur Specific [place] <= 1.005 (1.005-1.025) Urine Protein NEG (NEG-TRACE) MG/DL Urine Glucose (UA) NEG (NEG) MG/DL Urine Ketones NEG (NEG) MG/DL Urine Blood TRACE (NEG) Urine Nitrite NEG (NEG) Ur Leukocyte Esterase 1+ H (NEG) Urine RBC 1-4 (0) /HPF Urine WBC 5-9 H (0-4) /HPF Ur Squamous Epith Cells 1+ /LPF Urine Bacteria NONE /LPF Discharge Plan Discharge Clinical Impression: Chest pain Qualifiers: Chest pain type: unspecified Qualified Code(s): R07.9 - Chest pain, unspecified Patient Disposition: Home, Self-Care Instructions: Chest Pain (ED) Additional Instructions: Your laboratory evaluation was unremarkable. Your troponin (a marker of heart attack) was not elevated which is reassuring. Your EKG was unchanged from your previous EKG. Your chest x-ray was normal. Your urine did not show any evidence for infection. Continue medications as prescribed by your doctor. Follow-up with your doctor in 2 days. Please return to the emergency department if your symptoms get worse or if you develop any symptoms that are concerning to you. Prescriptions: No Action metoprolol tartrate 100 mg tablet 100 mg PO BID 90 Days Qty: 180 3RF digoxin 125 mcg (0.125 mg) tablet 125 mcg PO 90 Days Qty: 52 0RF Rx Instructions: Please call and schedule an appt Eliquis 2.5 mg tablet 2.5 mg PO BID 30 Days Qty: 60 5RF atorvastatin 40 mg tablet 40 mg PO BEDTIME Qty: 30 0RF omeprazole 20 mg capsule,delayed release(DR/EC) 1 cap PO DAILY 0RF melatonin 5 mg Tablet 5 mg PO BEDTIME PRN (Reason: Sleep) 0RF calcium carbonate-vitamin D3 [Caltrate with Vitamin D3] 600 mg(1,500mg) -800 unit Tablet 1 tab PO DAILY 0RF lidocaine [Lidocaine Pain Relief] 4 % Adhesive Patch,Medicated 1 patch transdermal DAILY Qty: 30 0RF Protocol: Apply to: Apply to: T9 vertebra calcitonin (salmon) 200 unit/actuation [place],Non-Aerosol 1 spray intranasal (ALT) DAILY Qty: 3.7 0RF morphine concentrate 10 mg/0.5 mL syringe 5 mg PO Q6H PRN (Reason: back pain) Qty: 50 0RF cefuroxime axetil 250 mg tablet 250 mg PO BID Qty: 14 0RF amlodipine 10 mg tablet 10 mg PO DAILY 0RF alprazolam 0.5 mg tablet 0.5 mg PO BID PRN (Reason: Anxiety) 0RF lorazepam 0.5 mg tablet 0.5 mg PO BID 0RF mirtazapine 15 mg tablet 15 mg PO DAILY 0RF Interventions: ED Discharge Assessment Last Done: 06/14/21 20:41 Discharge Date/Time: 06/14/21 20:42
[2021-06-14 18:33] LABS: Appearance Urine CLEAR; Color Urine YELLOW; Glucose Urine UA NEG (NEG); Leukocyte Esterase Urine 1+ (NEG); Nitrite Urine NEG (NEG); Specific Gravity - Urine <= 1.005 (1.005-1.025); UACC Culture Trigger YES; Urine Blood TRACE (NEG); Urine Ketones NEG (NEG); Urine Protein NEG (NEG-TRACE)
[2021-06-14 18:42] VITALS: BP 150/81; PULSE 79; RESP 13
[2021-06-14 18:42] LABS: Squamous Epithelial Cell Urine 1+ /LPF
== END 2021-06-14 20:42 | disposition home or self-care (01) ==
PROVIDERS: Emergency Provider Emergency Medicine Emergency Medical Services
DX: R07.9 Chest pain, unspecified (principal); I48.91 Unspecified atrial fibrillation; I11.0 Hypertensive heart disease with heart failure; I50.30 Unspecified diastolic (congestive) heart failure; Z87.440 Personal history of urinary (tract) infections
CPT/HCPCS: 36415; 71045; 80048; 81001; 84484; 85025; 87086; 93005; 99284

== ENCOUNTER 2021-07-17 19:11 | Emergency (ER) | payer MEDICARE, OTHER, SELFPAY ==
--- NOTE | ~2021-07-17 | XR_ITS ---
EXAMINATION: THORACIC SPINE, LUMBAR SPINE CLINICAL INFORMATION: Thoracic and lumbar pain COMPARISON: CT cervical spine 05/30/2021, CT thoracic spine 04/10/2021, CT abdomen pelvis 09/10/2020 TECHNIQUE: 3 views thoracic spine, 3 views lumbosacral spine FINDINGS: Thoracic kyphosis is present with a compression fracture involving T9 which has been treated with kyphoplasty the body containing cement. No new fractures or bony destructive lesions are seen. Some mild spondylitic endplate changes are seen in the spine with preservation of vertebral heights and disc spaces. There is mild grade 1 anterolisthesis of L5 upon S1. No bony destructive lesions are seen. XR/XR thoracic spine 2V IMPRESSION: Vertebral plana and kyphoplasty changes T9, unchanged. Mild degenerative changes lumbar spine.
--- NOTE | ~2021-07-17 | XR_ITS ---
EXAMINATION: THORACIC SPINE, LUMBAR SPINE CLINICAL INFORMATION: Thoracic and lumbar pain COMPARISON: CT cervical spine 05/30/2021, CT thoracic spine 04/10/2021, CT abdomen pelvis 09/10/2020 TECHNIQUE: 3 views thoracic spine, 3 views lumbosacral spine FINDINGS: Thoracic kyphosis is present with a compression fracture involving T9 which has been treated with kyphoplasty the body containing cement. No new fractures or bony destructive lesions are seen. Some mild spondylitic endplate changes are seen in the spine with preservation of vertebral heights and disc spaces. There is mild grade 1 anterolisthesis of L5 upon S1. No bony destructive lesions are seen. XR/XR lumbar spine 2-3V IMPRESSION: Vertebral plana and kyphoplasty changes T9, unchanged. Mild degenerative changes lumbar spine.
[2021-07-17 19:23] VITALS: BP 110/70; BP 130/60; PULSE 80; PULSE 81; RESP 16; TEMP 36.8; O2SAT 97; BMI 21.2
--- NOTE | 2021-07-17 19:53 | ED_ITS ---
HPI - Back Pain/Injury General Chief Complaint: Back Pain/Injury Stated Complaint: LOW BACK PAIN,NO NEW INJURY PER EMS Time Seen by Provider: 07/17/21 19:31 Source: family (son cristian) and EMS Mode of arrival: EMS Limitations: altered mental status (confused) History of Present Illness HPI Narrative: 80-year-old female with history of anxiety, AFib with RVR on AC, depression, congestive heart failure, GERD, hypertension, multiple compression fractures with kyphoplasty in March 2021 here with complaints of lower back pain. Patient tells me that today she was at her daughter's and spinal at times sitting and she had some lower back pain but took Tylenol and is now feeling improved. She tells me she is on a antibiotic for a UTI since 07/13 (macrobid). She denies any urinary symptoms. No fevers, chills, nausea, vomiting, chest pain. Related Data Home Medications Medication Instructions Recorded Confirmed omeprazole 20 mg capsule,delayed 1 cap PO DAILY 02/26/20 06/07/21 release amlodipine 10 mg tablet 10 mg PO DAILY 03/16/20 06/07/21 calcium carbonate 600 mg-vitamin 1 tab PO DAILY 09/07/20 06/07/21 D3 20 mcg (800 unit) tablet (Caltrate with Vitamin D3) melatonin 5 mg tablet 5 mg PO BEDTIME PRN 09/07/20 06/07/21 alprazolam 0.5 mg tablet 0.5 mg PO BID PRN 12/14/20 06/07/21 lorazepam 0.5 mg tablet 0.5 mg PO BID 06/06/21 06/07/21 mirtazapine 15 mg tablet 15 mg PO DAILY tab 06/06/21 06/07/21 Previous Rx's Medication Instructions Recorded metoprolol tartrate 100 mg tablet 100 mg PO BID 90 Days #180 tab 09/22/20 calcitonin (salmon) 200 1 spray INTRANASAL (ALT) DAILY 04/03/21 unit/actuation nasal spray #3.7 ml lidocaine 4 % topical patch 1 patch TRANSDERMAL DAILY #30 ea 04/03/21 (Lidocaine Pain Relief) morphine concentrate 10 mg/0.5 mL 5 mg (0.25 mL) PO Q6H PRN #50 ea 04/18/21 oral syringe (FOR ORAL USE ONLY) apixaban 2.5 mg tablet (Eliquis) 2.5 mg PO BID 30 Days #60 tab 05/08/21 cefuroxime axetil 250 mg tablet 250 mg PO BID #14 tab 05/30/21 digoxin 125 mcg (0.125 mg) tablet 125 mcg PO TUWETH 90 Days #52 tab 07/03/21 atorvastatin 40 mg tablet 40 mg PO BEDTIME #30 tab 07/05/21 Allergies Allergy/AdvReac Type Severity Reaction Status Date / Time morphine AdvReac Severe Alternate Verified 06/06/21 14:12 mental status Review of Systems Review of Systems: Yes all other systems are reviewed and are negative Constitutional: Constitutional: Reports no additional constitutional complaints, Denies body ache(s), Denies chills, Denies fever(s), Denies heada lauri(s) and Denies weakness Eyes: Eyes: Reports no additional eye complaints and Denies change in vision ENT: Reports system reviewed and no additional complaints, except as documented, Denies dizziness, Denies headache(s), Denies nasal congestion, Denies nasal discharge and Denies neck pain Cardiovascular: Cardiovascular: Reports no additional cardiovascular complaints, Denies chest pain, Denies leg edema and Denies dyspnea Respiratory: Respiratory: Reports no additional respiratory complaints, Denies cough and Denies dyspnea Gastrointestinal: Gastrointestinal: Reports no additional gastrointestinal complaints, Denies abdominal pain, Denies diarrhea, Denies nausea and Denies vomiting Genitourinary: Genitourinary: Reports no additional female genitourinary complaints and Denies urinary incontinence Musculoskeletal: Musculoskeletal: Reports no additional musculoskeletal complaints, Reports back pain, Denies arthralgias, Denies joint swelling, Denies neck pain, Denies numbness and Denies tingling Integumentary/Breasts: Skin/Breast: Reports system reviewed and no additional complaints, except as docu and Denies rash Neurologic: Reports system reviewed and no additional complaints, except as documented, Denies Abnormal speech present, Denies dizziness, Denies headache(s), Denies numbness, Denies tingling and Denies weakness PMFSH Past Medical History Attestation statement: The following information was validated with the patient. Source: old records reviewed and nursing notes reviewed Medical History Anxiety Atrial fibrillation with controlled ventricular rate Depression Diastolic heart failure GERD (gastroesophageal reflux disease) History of rib fracture HTN (hypertension) Ocular melanoma Surgical History No pertinent past surgical history Family History Family History Mother No problems noted. Father No problems noted. Social History Social History Household Members: Children Housing: House Do you presently have visiting nurse or other home services: No Alcohol intake: never Patient Tobacco Use Status: Never used Tobacco Second Hand Smoke Exposure: No Advance Directives: Yes Advance Directives on File: Yes Advance Directives Date on File: 04/18/21 service: No Current occupational status: retired Physical Exam Vital Signs: Vital Signs: Last Vital Signs Temp 98.2 F 07/17/21 19:23 Pulse 81 07/17/21 19:23 Resp 16 07/17/21 19:23 BP 130/60 07/17/21 19:23 Pulse Ox 97 07/17/21 19:23 BMI result Body Mass Index 21.2 Const: General: cooperative, healthy appearing, comfortable and no acute distress Orientation/consciousness: patient oriented x3 Limitations: no limitations HEENT: Head: Yes normal to inspection Ears: hearing grossly normal bilaterally General nose exam: Normal external nose present Face and sinus: Yes normal facial exam Mouth: Normal oral and palatal mucosa present Throat: Yes posterior oropharynx normal Eyes: General: appearance normal, both eyes and all related structures Pupils: Equal, round and reactive pupils present Neck: Neck: Yes normal visual inspection Chest: Chest palpation & inspection: normal inspection of the chest Resp: Effort & Inspection: normal respiratory effort Auscultation: clear to auscultation bilaterally Cardio: Rate: regular rate Rhythm: regular rhythm Peripheral pulses: Pe ripheral pulses 2+ throughout GI: Inspection: Yes normal to inspection Palpation (GI): Soft to palpation and nontender Auscultation: normal bowel sounds Back/Spine/Pelvis: Other: Kyphosis of the spine. Unable to elicit any pain on exam Thoracic/Lumbar Spine: thoracic and lumbar spine normal to inspection Skin: General skin exam: no rashes or lesions noted Neuro: General: patient oriented x3, no focal motor deficits and normal sensation to monofilament Cranial nerves: Yes Equal, round and reactive pupils present Cognition (Neuro): normal cognition Speech: No Abnormal speech present Gait exam (Neuro): Normal gait present Motor exam (neuro): 5/5 motor strength present throughout Extrem: General: Yes normal to inspection Course Course Course Narrative: 80-year-old female here with reports of low back pain earlier today which is now resolved after taking Tylenol. I called and spoke to the son. He tells me that the patient prior to stay has been living with her daughter however she and the was today. He tells me the patient has lot of anxiety and when she gets very anxious she does often complain of her back hurting her. He tells me that after the home for the today she was complaining of some lower back pain. He gave her some Tylenol and she went to lay down. Shortly after she asked him to bring her to the emergency department due to her complaints of her back pain. On arrival here patient is denying any pain. She has no complaints at all. She does have an extensive history of multiple compression fractures with intervention. Will check x-rays. I did offer to check labs and urine testing but the son tells me she recently had these at [facility]. He also tells me that she is currently on Macrobid for a UTI which she has been since . 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 Reevaluation(s) Reevaluation #1: X-ray show no new changes. Patient has been comfortable while here in the emergency department for 2 hours. I called and spoke to her son. He is comfortable picking her up and bring her home. They do have medicated patches at home which they may continue in addition to Tylenol. Reviewed worrisome signs and symptoms of when to return to the emergency department. Comfortable discharge home. Time: 20:40 MDM - Back Pain/Injury Medical Records Attestation: I reviewed the patient's medical records. Lab Data Attestation: I reviewed the patient's lab results. Imaging Data lumbar/thoracic x-ray: Attestation: I personally reviewed and interpreted this imaging study as follows: Radiologist's impression: [address] [address] XRay Report Signed Patient: Tereza Joe MR#: [id number] : 1940 Acct:[id number] Age/Sex: 80 / F ADM Date: 07/17/21 Loc: HO.ED Attending Dr: Ordering Physician: Camila Ennis NP Date of Service: 07/17/21 Procedure(s): XR lumbar spine 2-3V Accession Number(s): [id number] cc: Camila Ennis NP~ EXAMINATION: THORACIC SPINE, LUMBAR SPINE CLINICAL INFORMATION: Thoracic and lumbar pain? COMPARISON: CT cervical spine 05/30/2021, CT thoracic spine 04/10/2021, CT abdomen pelvis 09/10/2020? TECHNIQUE: 3 views thoracic spine, 3 views lumbosacral spine? FINDINGS: Thoracic kyphosis is present with a compression fracture involving T9 which has been treated with kyphoplasty the body containing cement. No new fractures or bony destructive lesions are seen. Some mild spondylitic endplate changes are seen in the spine with preservation of vertebral heights and disc spaces. There is mild grade 1 anterolisthesis of L5 upon S1. No bony destructive lesions are seen. XR/XR lumbar spine 2-3V IMPRESSION: Vertebral plana and kyphoplasty changes T9, unchanged. Mild degenerative changes lumbar spine. Discharge Plan Discharge Clinical Impression: Back pain Patient Disposition: Home, Self-Care Instructions: Back Pain (ED) Additional Instructions: X-ray showed no new fracture Continue antibiotic Continue home med Follow-up with her primary care doctor for any persistent symptoms Prescriptions: No Action metoprolol tartrate 100 mg tablet 100 mg PO BID 90 Days Qty: 180 3RF Eliquis 2.5 mg tablet 2.5 mg PO BID 30 Days Qty: 60 5RF digoxin 125 mcg (0.125 mg) tablet 125 mcg PO WE 90 Days Qty: 52 3RF Rx Instructions: Please call and schedule an appt atorvastatin 40 mg tablet 40 mg PO BEDTIME Qty: 30 5RF omeprazole 20 mg capsule,delayed release(DR/EC) 1 cap PO DAILY 0RF melatonin 5 mg Tablet 5 mg PO BEDTIME PRN (Reason: Sleep) 0RF calcium carbonate-vitamin D3 [Caltrate with Vitamin D3] 600 mg(1,500mg) -800 unit Tablet 1 tab PO DAILY 0RF lidocaine [Lidocaine Pain Relief] 4 % Adhesive Patch,Medicated 1 patch transdermal DAILY Qty: 30 0RF Protocol: Apply to: Apply to: T9 vertebra calcitonin (salmon) 200 unit/actuation [place],Non-Aerosol 1 spray intranasal (ALT) DAILY Qty: 3.7 0RF morphine concentrate 10 mg/0.5 mL syringe 5 mg PO Q6H PRN (Reason: back pain) Qty: 50 0RF cefuroxime axetil 250 mg tablet 250 mg PO BID Qty: 14 0RF amlodipine 10 mg tablet 10 mg PO DAILY 0RF alprazolam 0.5 mg tablet 0.5 mg PO BID PRN (Reason: Anxiety) 0RF lorazepam 0.5 mg tablet 0.5 mg PO BID 0RF mirtazapine 15 mg tablet 15 mg PO DAILY 0RF Referrals: Richard Ortiz MD [Primary Care Provider] - 1 week (for re-eval) Interventions: ED Discharge Assessment Last Done: 07/17/21 21:07 Discharge Date/Time: 07/17/21 21:08
== END 2021-07-17 21:08 | disposition home or self-care (01) ==
PROVIDERS: Emergency Provider Emergency Medicine; PCP Internal Medicine
DX: M54.50 Low back pain, unspecified (principal)
CPT/HCPCS: 72070; 72100; 99283

== ENCOUNTER 2021-09-27 10:19 | Inpatient (IN) | payer MEDICARE, OTHER, SELFPAY ==
--- NOTE | ~2021-09-27 | XR_ITS ---
EXAMINATION: XR CHEST CLINICAL INFORMATION: AF COMPARISON: Chest radiograph from 06/14/2021 TECHNIQUE: Frontal view of the chest was obtained. FINDINGS: Limited evaluation secondary to patient positioning. Bilateral low lung volumes. Right mid and upper lung mchugh are incompletely evaluated. No left-sided pneumothorax. Cardiomediastinal silhouette is stable. No large pleural effusion. Osseous structures are intact. Soft tissues are unremarkable. XR/XR chest 1V IMPRESSION: 1. Limited evaluation secondary to patient positioning. 2. Bilateral low lung volumes.
--- NOTE | ~2021-09-27 | CT_ITS ---
EXAMINATION: CT HEAD WITHOUT CONTRAST CLINICAL INFORMATION: Change in mental status. Worsening depression. COMPARISON: CT scan of the head 05/31/2019. TECHNIQUE: Contiguous axial imaging was performed from the skull base to vertex without intravenous administration of contrast. This CT examination was performed using dose optimization techniques as appropriate, variously including the following: *Automated exposure control *Adjustment of mA and/or kV according to patient size (this includes techniques or standardized protocols for targeted exams where dose is matched to indication/reason for exam; i.e. extremities or head) *Use of iterative reconstruction technique DLP: 672 mGy-cm FINDINGS: There are scattered nonspecific foci of hypoattenuation within the periventricular white matter, basal ganglia, and thalami. Smith-white matter differentiation is otherwise preserved and there is no evidence of acute territorial infarct. The calvarium and skull base are intact. Mastoid air cells and middle ear cavities are well aerated. No active paranasal sinus disease. There is a metallic implant visualized at the superior aspect of the right globe. CT/CT head/brain wo con IMPRESSION: There are scattered chronic small vessel ischemic changes primarily involving the periventricular white matter, basal ganglia, and thalami. Grossly no evidence of acute territorial infarct or hemorrhage.
[2021-09-27 10:26] VITALS: BMI 16.7
[2021-09-27 10:29] VITALS: BP 102/71; PULSE 93; RESP 16; TEMP 36.4; O2SAT 96
[2021-09-27 10:41] LABS: MANUAL DIFF FLAG NO
[2021-09-27 10:44] LABS: Basophils Percent Auto 0.5 % (0-2); Eosinophils Percent Auto 0.2 % (0-4); Hematocrit 40.4 % (37.0-47.0); Hemoglobin 13.6 g/dl (12.0-16.0); Imm Gran Abs Auto 0.03 X10*3/uL (0.00-0.03); Imm Gran Pct Auto 0.4 % (0.0-0.4); Lymphocytes Absolute Auto 1.9 X10*3/uL (1.2-4.9); Lymphocytes Percent Auto 22.8 % (20-40); Mean Corpuscular HGB Conc 33.7 g/dl (31.0-35.0); Mean Corpuscular Hemoglobin 30.8 pg (27.0-33.0); Mean Corpuscular Volume 91.6 fL (80.0-98.0); Mean Platelet Volume 11.3 fL (9.4-12.3); Monocytes Absolute Auto 0.3 X10*3/uL (0.1-1.2); Monocytes Percent Auto 3.9 % (2-11); Neutrophils Absolute Auto 5.9 x10*3/uL (2.0-8.3); Neutrophils Percent Auto 72.2 % (45-73); Platelet Count 236 X10*3/uL (160-400); Red Blood Count 4.41 X10*6/uL (4.20-5.50); Red Cell Distribution Width 13.9 % (11.0-16.0); White Blood Count 8.2 X10*3/uL (4.8-10.8)
[2021-09-27 12:41] VITALS: BP 137/63; PULSE 84; RESP 22; TEMP 36.9; O2SAT 96
--- NOTE | 2021-09-27 12:52 | ED_ITS ---
HPI - Psych General Chief Complaint: Psychiatric Symptoms Stated Complaint: delirium Time Seen by Provider: 09/27/21 12:31 Source: family Mode of arrival: ambulatory Limitations: altered mental status and other (Dementia) History of Present Illness HPI Narrative: Patient comes to the emergency room accompanied by her son. The son reports that the patient has been losing approximately 30 lb of weight over the last year. Patient is not eating and not eating well. Patient has history of dementia, over last 2 years, patient lost 2 daughters and her , the most recent 2 months ago being her daughter. The patient is unable to provide any history, she is awake and alert. The son reports that this morning, the patient woke up saying that her body is gone, talking about computers and taxes without making much sense. The son reports that approximately 2 weeks ago, the patient was discharged from [facility], patient was there for delusions, altered mental status, which was attributed to the UTI. The patient never fully recovered, she has been delusional since then, but today was the worst day. Related Data Home Medications Medication Instructions Recorded Confirmed omeprazole 20 mg capsule,delayed 1 cap PO DAILY 02/26/20 06/07/21 release amlodipine 10 mg tablet 10 mg PO DAILY 03/16/20 09/27/21 calcium carbonate 600 mg-vitamin 1 tab PO DAILY 09/07/20 09/27/21 D3 20 mcg (800 unit) tablet (Caltrate with Vitamin D3) melatonin 5 mg tablet 5 mg PO BEDTIME PRN Sleep 09/07/20 06/07/21 alprazolam 0.5 mg tablet 0.5 mg PO BID PRN Anxiety 12/14/20 06/07/21 lorazepam 0.5 mg tablet 0.5 mg PO BID 06/06/21 06/07/21 mirtazapine 15 mg tablet 15 mg PO DAILY 06/06/21 09/27/21 Drizalma Sprinkle 20 mg ONCE 09/27/21 09/27/21 clonazepam 0.5 mg tablet 0.5 tab PO BID ANXIETY 09/27/21 09/27/21 quetiapine 25 mg tablet tab PO PRN Anxiety 09/27/21 Previous Rx's Medication Instructions Recorded metoprolol tartrate 100 mg tablet 100 mg PO BID 90 days #180 tabs 09/22/20 calcitonin (salmon) 200 1 spray intranasal (ALT) DAILY 04/03/21 unit/actuation nasal spray #3.7 mL lidocaine 4 % topical patch 1 patch transdermal DAILY #30 ea 04/03/21 (Lidocaine Pain Relief) morphine concentrate 10 mg/0.5 mL 5 mg (0.25 mL) PO Q6H PRN back 04/18/21 oral syringe (FOR ORAL USE ONLY) pain #50 ea apixaban 2.5 mg tablet (Eliquis) 2.5 mg PO BID 30 days #60 tabs 05/08/21 cefuroxime axetil 250 mg tablet 250 mg PO BID #14 tabs 05/30/21 digoxin 125 mcg (0.125 mg) tablet 125 mcg PO TUWETHFR 90 days #52 07/03/21 tabs atorvastatin 40 mg tablet 40 mg PO BEDTIME #30 tabs 07/05/21 Allergies Allergy/AdvReac Type Severity Reaction Status Date / Time morphine AdvReac Severe Alternate Verified 09/27/21 10:25 mental status Review of Systems Review of Systems: Yes Unobtainable due to mental status [facility] Past Medical History Medical History (Updated 09/27/21 @ 15:10 by Vannessa Macias MD) Anxiety Atrial fibrillation with controlled ventricular rate Dementia Depression Diastolic heart failure GERD (gastroesophageal reflux disease) History of rib fracture HTN (hypertension) Ocular melanoma Surgical History No pertinent past surgical history Family History Family History Mother No problems noted. Father No problems noted. Social History Social History Household Members: Children Housing: House Do you presently have visiting nurse or other home services: No Alcohol intake: never Patient Tobacco Use Status: Never used Tobacco Second Hand Smoke Exposure: No Advance Directives: Yes Advance Directives on File: Yes Advance Directives Date on File: 04/19/21 service: No Current occupational status: retired Physical Exam Vital Signs: Vital Signs: Last Vital Signs Temp 97.8 F 09/27/21 16:33 Pulse 113 H 09/27/21 16:33 Resp 18 09/27/21 16:33 BP 151/72 H 09/27/21 16:33 Pulse Ox 96 09/27/21 16:33 O2 Del Method 09/27/21 16:33 BMI result Body Mass Index 16.7 Const: Other: Appearance: Alert. Acute distress, seems a bit anxious, Eyes: Pupils equal, round and reactive to light. ENT: Pharynx normal. Neck: Normal inspection. Neck supple. No lymph nodes noted. No crepitus CVS: Normal heart rate and rhythm. Pulses normal. Normal S1 and S2 Respiratory: No respiratory distress. Breath sounds normal. No Wheezing. No rales Abdomen: Soft and nontender. No rigidity. No distention. Skin: Skin warm and dry. Normal skin color. Normal skin turgor. Extremities: No lower extremity edema. No Lacerations. No Rash Neuro: No motor deficit. No sensory deficit. Moving all extremities. No slurred speech. CN 2 through 12 grossly intact Psych: calm, cooperative, normal affect Course Course Course Narrative: At this time, most patients labs are pending. The patient's son reports that the patient's psychiatrist referred him to the emergency room today. Prior to arrival, patient gave her 25 mg of Seroquel which has prescribed to the patient. The son is concerned about the patient's weight loss. Patient's son is considering force nutrition if needed. Patient's son is the patient's new healthcare proxy. Two months ago, the patient's daughter who used to be the primary personal assistant [facility] network consult pending. Patient may need Kamila psych Physician observation started at 15:00 [facility] - Psych Lab Data Result diagrams: 09/27/21 10:36 09/27/21 10:36 Labs: Lab Results 09/27/21 09/27/21 09/27/21 Range/Units 10:36 10:36 13:02 WBC 8.2 (4.8-10.8) X10*3/uL RBC 4.41 (4.20-5.50) X10*6/uL Hgb 13.6 (12.0-16.0) g/dl Hct 40.4 (37.0-47.0) % MCV 91.6 (80.0-98.0) fL MCH 30.8 (27.0-33.0) pg MCHC 33.7 (31.0-35.0) g/dl RDW 13.9 (11.0-16.0) % Plt Count 236 (160-400) X10*3/uL MPV 11.3 (9.4-12.3) fL Immature Gran % (Auto) 0.4 (0.0-0.4) % Neut % (Auto) 72.2 (45-73) % Lymph % (Auto) 22.8 (20-40) % [place] % (Auto) 3.9 (2-11) % Eos % (Auto) 0.2 (0-4) % Baso % (Auto) 0.5 (0-2) % Lymph # (Auto) 1.9 (1.2-4.9) X10*3/uL [place] # (Auto) 0.3 (0.1-1.2) X10*3/uL Eos # (Auto) 0.0 (0.0-0.4) X10*3/uL Baso # (Auto) 0.0 (0.0-0.2) X10*3/uL Abs Immat Gran (auto) 0.03 (0.00-0.03) X10*3/uL Absolute Neuts (auto) 5.9 (2.0-8.3) x10*3/uL Absolute Nucleated RBC 0.000 (0.0-0.012) X10*3/uL Nucleated RBC % (auto) 0.0 (0.0-0.2) /100WBC Sodium 146 H (135-145) mmol/L Potassium 3.8 (3.3-5.1) mmol/L Chloride 108 (96-108) mmol/L Carbon Dioxide 25 (22-29) mmol/L Anion Gap 17 (12-20) BUN 32 H (9-16) mg/dL Creatinine 1.37 (0.5-1.4) mg/dL Estim Creat Clear Calc 20.4 Estimated GFR 37 Random Glucose 116 H (60-115) mg/dL Calcium 9.8 (8.4-10.2) mg/dL Total Bilirubin 0.9 (0.0-1.0) mg/dL Direct Bilirubin 0.4 (0.0-0.5) mg/dL AST 21 (5-31) U/L ALT 41 H (0-31) U/L Alkaline Phosphatase 78 D (39-117) U/L Total Protein 6.8 (6.5-8.0) g/dL Albumin 4.1 (3.5-5.0) g/dL Urine Color Urine Appearance Urine pH (5.0-8.0) Ur Specific [place] (1.005-1.025) Urine Protein (NEG-TRACE) MG/DL Urine Glucose (UA) (NEG) MG/DL Urine Ketones (NEG) MG/DL Urine Blood (NEG) Urine Nitrite (NEG) Ur Leukocyte Esterase (NEG) COVID-19 (KYLEE) Negative (Negative) COVID-19 Clin Com See Note 09/27/21 Range/Units 14:41 WBC (4.8-10.8) X10*3/uL RBC (4.20-5.50) X10*6/uL Hgb (12.0-16.0) g/dl Hct (37.0-47.0) % MCV (80.0-98.0) fL MCH (27.0-33.0) pg MCHC (31.0-35.0) g/dl RDW (11.0-16.0) % Plt Count (160-400) X10*3/uL MPV (9.4-12.3) fL Immature Gran % (Auto) (0.0-0.4) % Neut % (Auto) (45-73) % Lymph % (Auto) (20-40) % [place] % (Auto) (2-11) % Eos % (Auto) (0-4) % Baso % (Auto) (0-2) % Lymph # (Auto) (1.2-4.9) X10*3/uL [place] # (Auto) (0.1-1.2) X10*3/uL Eos # (Auto) (0.0-0.4) X10*3/uL Baso # (Auto) (0.0-0.2) X10*3/uL Abs Immat Gran (auto) (0.00-0.03) X10*3/uL Absolute Neuts (auto) (2.0-8.3) x10*3/uL Absolute Nucleated RBC (0.0-0.012) X10*3/uL Nucleated RBC % (auto) (0.0-0.2) /100WBC Sodium (135-145) mmol/L Potassium (3.3-5.1) mmol/L Chloride (96-108) mmol/L Carbon Dioxide (22-29) mmol/L Anion Gap (12-20) BUN (9-16) mg/dL Creatinine (0.5-1.4) mg/dL Estim Creat Clear Calc Estimated GFR Random Glucose (60-115) mg/dL Calcium (8.4-10.2) mg/dL Total Bilirubin (0.0-1.0) mg/dL Direct Bilirubin (0.0-0.5) mg/dL AST (5-31) U/L ALT (0-31) U/L Alkaline Phosphatase (39-117) U/L Total Protein (6.5-8.0) g/dL Albumin (3.5-5.0) g/dL Urine Color YELLOW Urine Appearance HAZY Urine pH 5.5 (5.0-8.0) Ur Specific [place] >= 1.030 H (1.005-1.025) Urine Protein NEG (NEG-TRACE) MG/DL Urine Glucose (UA) NEG (NEG) MG/DL Urine Ketones 5 (NEG) MG/DL Urine Blood NEG (NEG) Urine Nitrite NEG (NEG) Ur Leukocyte Esterase NEG (NEG) COVID-19 (KYLEE) (Negative) COVID-19 Clin Com Discharge Plan Discharge Clinical Impression: Delusion Patient Disposition: Still a Patient Prescriptions: No Action metoprolol tartrate 100 mg tablet 100 mg PO BID 90 Days Qty: 180 3RF Eliquis 2.5 mg tablet 2.5 mg PO BID 30 Days Qty: 60 5RF digoxin 125 mcg (0.125 mg) tablet 125 mcg PO 90 Days Qty: 52 3RF Rx Instructions: Please call and schedule an appt atorvastatin 40 mg tablet 40 mg PO BEDTIME Qty: 30 5RF omeprazole 20 mg capsule,delayed release(DR/EC) 1 cap PO DAILY melatonin 5 mg Tablet 5 mg PO BEDTIME PRN (Reason: Sleep) calcium carbonate-vitamin D3 [Caltrate with Vitamin D3] 600 mg(1,500mg) -800 unit Tablet 1 tab PO DAILY lidocaine [Lidocaine Pain Relief] 4 % Adhesive Patch,Medicated 1 patch transdermal DAILY Qty: 30 0RF Protocol: Apply to: Apply to: T9 vertebra calcitonin (salmon) 200 unit/actuation [place],Non-Aerosol 1 spray intranasal (ALT) DAILY Qty: 3.7 0RF quetiapine 25 mg tablet PO PRN (Reason: Anxiety) clonazepam 0.5 mg tablet 0.5 tab PO BID Drizalma Sprinkle 20 MG 20 mg ONCE morphine concentrate 10 mg/0.5 mL syringe 5 mg PO Q6H PRN (Reason: back pain) Qty: 50 0RF cefuroxime axetil 250 mg tablet 250 mg PO BID Qty: 14 0RF amlodipine 10 mg tablet 10 mg PO DAILY alprazolam 0.5 mg tablet 0.5 mg PO BID PRN (Reason: Anxiety) lorazepam 0.5 mg tablet 0.5 mg PO BID mirtazapine 15 mg tablet 15 mg PO DAILY
[2021-09-27 13:29] LABS: COVID-19 Test Negative (Negative)
[2021-09-27 13:37] LABS: Alanine Aminotransferase 41 U/L (0-31); Albumin Level 4.1 g/dL (3.5-5.0); Alkaline Phosphatase 78 U/L (39-117); Anion Gap 17 (12-20); Aspartate Amino Transferase 21 U/L (5-31); Bilirubin Direct 0.4 mg/dL (0.0-0.5); Bilirubin Total 0.9 mg/dL (0.0-1.0); Blood Urea Nitrogen 32 mg/dL (9-16); Calcium 9.8 mg/dL (8.4-10.2); Carbon Dioxide 25 mmol/L (22-29); Chloride 108 mmol/L (96-108); Creatinine Clr Calc Pharmacy 20.4; Estimated Glomerular Filt Rate 37; Glucose Random 116 mg/dL (60-115); Potassium 3.8 mmol/L (3.3-5.1); Sodium 146 mmol/L (135-145); Total Protein 6.8 g/dL (6.5-8.0)
[2021-09-27 14:51] LABS: Appearance Urine HAZY; Color Urine YELLOW; Glucose Urine UA NEG (NEG); Leukocyte Esterase Urine NEG (NEG); Nitrite Urine NEG (NEG); PH 5.5 (5.0-8.0); Specific Gravity - Urine >= 1.030 (1.005-1.025); Urine Blood NEG (NEG); Urine Ketones 5 MG/DL (NEG); Urine Protein NEG (NEG-TRACE)
[2021-09-27 16:33] VITALS: BP 151/72; PULSE 113; RESP 18; TEMP 36.6; O2SAT 96
[2021-09-27] MEDS: LORazepam 1 MG TABLET PO (17:01)
--- NOTE | 2021-09-27 18:32 | ECG_ITS ---
Test Reason : ALTERED MENTAL STATUS Blood Pressure : / mmHG Vent. Rate : 103 BPM Atrial Rate : 000 BPM P-R Int : 000 ms QRS Dur : 096 ms QT Int : 346 ms P-R-T Axes : 000 -50 147 degrees QTc Int : 453 ms Atrial fibrillation with rapid ventricular response Left axis deviation Anteroseptal infarct (cited on or before 29-MAR-2020) T wave abnormality, consider lateral ischemia Abnormal ECG When compared with ECG of 14-JUN-2021 15:38, QT has lengthened Referred By: Vannessa Macias Electronically Signed By:ADRIANA MARTÍNEZ MD
[2021-09-27 19:24] LABS: Amphetamine Screen Urine Not Detected (Not Detect); Barbiturates, Urine Not Detected (Not Detect); Benzodiazepines Screen Urine Not Detected (Not Detect); Cannabinoid Screen Urine Not Detected (Not Detect); Cocaine Screen Urine Not Detected (Not Detect); Fentanyl, urine Not Detected (Not Detect); Opiate Screen Urine Not Detected (Not Detect); Phencyclidine Screen Urine Not Detected (Not Detect)
[2021-09-27 20:00] VITALS: RESP 16
[2021-09-27 20:50] VITALS: BP 147/66; PULSE 88; RESP 14; TEMP 36.1; O2SAT 98
--- NOTE | 2021-09-27 21:07 | PHA.MEDREC ---
Pharmacy Consult ? Medication Reconciliation Pharmacy has completed the medication reconciliation. Spoke to son about the drizalma. Patient has not started it yet due to insurance and pharmacy issues. I spoke to Dr barrett who okay'd a change to regular duloxetine capsules. Thanks Kvng
[2021-09-27] MEDS: clonazePAM 0.5 MG TABLET 0.25 MG PO (21:33)
[2021-09-27] MEDS: Atorvastatin Calcium 40 MG TABLET PO (21:33)
[2021-09-27] MEDS: Apixaban 2.5 MG TABLET PO (21:33)
[2021-09-27] MEDS: Metoprolol Tartrate 100 MG TABLET PO (21:33)
--- NOTE | 2021-09-27 23:43 | PC.ADMIT ---
PT escorted to unit by RN and security in a WC on a 12b at 2049. PT A+Ox 2, to self, , and place. PT denies SI/HI and A/V hallucinations. PT reports feeling safe on unit. PT came with eye glasses for belongings and they are at PT bedside. PT unable to sign legals at time of admission. PT oriented to room and unit, PT in bed resting with bed alarm on and functioning. PT refused food accepted water and scheduled medications. AT 2052 VS were T 97.0, O2 98% RA, R 14, P88, and BP 147/66, PT denies pain. PT has hx of HTN, dementia, UTI, CHF, chronic back pain, A-Fib, and anxiety. PT stated she 'is not eating at home.' PT states that she has 'issues swallowing and chewing at times.'
[2021-09-28 06:00] VITALS: BP 110/67; PULSE 97; RESP 17; TEMP 36.6; O2SAT 96
[2021-09-28] MEDS: DULoxetine HCl 20 MG CAPSULE.DR PO (08:20)
[2021-09-28] MEDS: Metoprolol Tartrate 100 MG TABLET PO ×2 (08:20→20:16)
[2021-09-28] MEDS: amLODIPine Besylate 10 MG TABLET PO (08:20)
[2021-09-28] MEDS: Mirtazapine 15 MG TABLET PO (08:20)
[2021-09-28] MEDS: Calcium + Vitamin D 250 MG TABLET PO (08:20)
[2021-09-28] MEDS: Apixaban 2.5 MG TABLET PO ×2 (08:20→20:16)
[2021-09-28] MEDS: clonazePAM 0.5 MG TABLET 0.25 MG PO ×2 (08:21→20:16)
[2021-09-28 08:58] LABS: Alanine Aminotransferase 35 U/L (0-31); Albumin Level 3.9 g/dL (3.5-5.0); Alkaline Phosphatase 63 U/L (39-117); Anion Gap 18 (12-20); Aspartate Amino Transferase 21 U/L (5-31); Blood Urea Nitrogen 32 mg/dL (9-16); Calcium 9.4 mg/dL (8.4-10.2); Carbon Dioxide 21 mmol/L (22-29); Chloride 109 mmol/L (96-108); Cholesterol 139 mg/dL; Creatinine Clr Calc Pharmacy 28.8; Estimated Glomerular Filt Rate 55; Glucose Fasting 62 mg/dL (60-99); HDL Cholesterol 46 mg/dL; LDL Cholesterol Calculated 73 mg/dl; Sodium 144 mmol/L (135-145); Total Protein 6.4 g/dL (6.5-8.0); Triglycerides 101 mg/dL
[2021-09-28] MEDS: Digoxin 0.125 MG TABLET PO (10:58)
[2021-09-28 12:58] VITALS: BMI 16.7
--- NOTE | 2021-09-28 13:05 | MHC.CLN ---
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 PT TRIGGERS FOR 28% SIGNIFICANT WT LOSS X 6 MONTHS WITH CHRONIC POOR PO INTAKE R/T MULTIPLE /LOSS OF FAMILY MEMBERS. NSG REPORTED PT REFUSED MEAL DIET RX: REGULAR-APPROPRIATE PT REPORTED TO NSG THAT SHE HAS ISSUES SWALLOWING AND CHEWING AT TIMES-RECOMMEND SENIOR ANALYST DEVELOPER EVAL TO DETERMINE APPROPRIATE DIET CONSISTENCY RECOMMEND ADDING ENSURE BID TO INCREASE KCALS AND PROMOTE WT GAIN SUPP TO PROVIDE 700KCALS, 40G PROTEIN MONITOR PO INTAKE CLOSELY WEEKLY WEIGHTS PT IS AT RISK FOR RE-FEEDING SYNDROME-MONITOR MG, PHOS AND K+ CLOSELY SEE FULL CLINICAL NUTRITION ASSESSMENT
[2021-09-28 13:07] VITALS: BMI 16.5
--- NOTE | 2021-09-28 15:24 | HO.PSYADMNOT ---
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 According to the chart, and the report of her son, after COVID 19 bandemia started the patient started feeling more depressed with lack of energy, depressed mood, increased anxiety, poor appetite and poor sleep. She had several trials of SSRIs with poor response as an outpatient. Her daughter used to be the primary caregiver and she commit suicide a few weeks ago. According to her relatives, the patient has lost 30 lb, she is depressed with lack of energy, anhedonia feelings of hopelessness and passive suicidal ideation. Also she has failed to take care of her ADL less. She was assessed by crisis and transferring to this facility for psychiatric stabilization. On interview the patient was lying on her bed, confused, refusing to participate in the interview since she was feeling very tired. She admitted depressed mood, anhedonia, lack of energy, feelings of hopelessness and worthlessness. She currently denies auditory hallucinations or any psychotic symptoms.. Past Psychiatric History: No prior psychiatric admissions, as per the chart, she was seen as an outpatient and they have tried SSRIs in the past. 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 Her primary caregiver was her daughter who committed suicide a few weeks ago Substance History: Denies, as per the chart no evidence of substance abuse Trauma History: Unknown, the patient refused to elaborate Diagnostics Vital Signs (24Hr): Vital Signs - 24 hr 09/27/21 16:33 09/27/21 20:00 09/27/21 20:50 Temperature 97.8 F 97 F Pulse Rate 113 H 88 Respiratory Rate 18 16 14 Blood Pressure 151/72 H 147/66 H Pulse Oximetry 96 98 Oxygen Delivery Method Room Air Room Air 09/28/21 06:00 Temperature 98 F Pulse Rate 97 Respiratory Rate 17 Blood Pressure 110/67 Pulse Oximetry 96 Oxygen Delivery Method Room Air BMI result Body Mass Index 16.5 Labs Results: 09/27/21 10:36 09/28/21 07:53 Labs: Laboratory Results - last 48 hr 09/27/21 09/27/21 09/27/21 10:36 10:36 13:02 WBC 8.2 RBC 4.41 Hgb 13.6 Hct 40.4 MCV 91.6 MCH 30.8 MCHC 33.7 RDW 13.9 Plt Count 236 MPV 11.3 Immature Gran % (Auto) 0.4 Neut % (Auto) 72.2 Lymph % (Auto) 22.8 Wilson % (Auto) 3.9 Eos % (Auto) 0.2 Baso % (Auto) 0.5 Lymph # (Auto) 1.9 Wilson # (Auto) 0.3 Eos # (Auto) 0.0 Baso # (Auto) 0.0 Abs Immat Gran (auto) 0.03 Absolute Neuts (auto) 5.9 Absolute Nucleated RBC 0.000 Nucleated RBC % (auto) 0.0 Sodium 146 H Potassium 3.8 Chloride 108 Carbon Dioxide 25 Anion Gap 17 BUN 32 H Creatinine 1.37 Estim Creat Clear Calc 20.4 Estimated GFR 37 Random Glucose 116 H Fasting Glucose Calcium 9.8 Total Bilirubin 0.9 Direct Bilirubin 0.4 AST 21 ALT 41 H Alkaline Phosphatase 78 D Total Protein 6.8 Albumin 4.1 Triglycerides Cholesterol LDL Cholesterol, Calc HDL Cholesterol Urine Color Urine Appearance Urine pH Ur Specific [place] Urine Protein Urine Glucose (UA) Urine Ketones Urine Blood Urine Nitrite Ur Leukocyte Esterase Urine Opiates Screen Urine Fentanyl Screen Ur Barbiturates Screen Ur Phencyclidine Scrn Ur Amphetamines Screen U Benzodiazepines Scrn Urine Cocaine Screen U Marijuana (THC) Screen COVID-19 (KYLEE) Negative COVID-19 Clin Com See Note 09/27/21 09/27/21 09/28/21 14:41 14:41 07:53 WBC RBC Hgb Hct MCV MCH MCHC RDW Plt Count MPV Immature Gran % (Auto) Neut % (Auto) Lymph % (Auto) Wilson % (Auto) Eos % (Auto) Baso % (Auto) Lymph # (Auto) Wilson # (Auto) Eos # (Auto) Baso # (Auto) Abs Immat Gran (auto) Absolute Neuts (auto) Absolute Nucleated RBC Nucleated RBC % (auto) Sodium 144 Potassium 4.0 Chloride 109 H Carbon Dioxide 21 L Anion Gap 18 BUN 32 H Creatinine 0.97 Estim Creat Clear Calc 28.8 Estimated GFR 55 Random Glucose Fasting Glucose 62 Calcium 9.4 Total Bilirubin 1.0 Direct Bilirubin AST 21 ALT 35 H Alkaline Phosphatase 63 Total Protein 6.4 L Albumin 3.9 Triglycerides 101 Cholesterol 139 LDL Cholesterol, Calc 73 HDL Cholesterol 46 Urine Color YELLOW Urine Appearance HAZY Urine pH 5.5 Ur Specific [place] >= 1.030 H Urine Protein NEG Urine Glucose (UA) NEG Urine Ketones 5 Urine Blood NEG Urine Nitrite NEG Ur Leukocyte Esterase NEG Urine Opiates Screen Not Detected Urine Fentanyl Screen Not Detected Ur Barbiturates Screen Not Detected Ur Phencyclidine Scrn Not Detected Ur Amphetamines Screen Not Detected U Benzodiazepines Scrn Not Detected Urine Cocaine Screen Not Detected U Marijuana (THC) Screen Not Detected COVID-19 (KYLEE) COVID-19 Clin Com Meds/Allergies Meds Home Medications Medication Instructions Recorded Confirmed Type amlodipine 10 mg tablet 10 mg PO DAILY 03/16/20 09/27/21 History calcium carbonate 600 mg-vitamin 1 tab PO DAILY 09/07/20 09/27/21 History D3 20 mcg (800 unit) tablet (Caltrate with Vitamin D3) mirtazapine 15 mg tablet 15 mg PO BEDTIME 06/06/21 09/27/21 History Drizalma Sprinkle 20 mg ONCE 09/27/21 09/27/21 History clonazepam 0.5 mg tablet 0.5 tab PO BID ANXIETY 09/27/21 09/27/21 History quetiapine 25 mg tablet 0.5 - 1 tab PO BEDTIME 09/27/21 09/27/21 History quetiapine 25 mg tablet 0.5 - 1 tab PO BID PRN Anxiety 09/27/21 09/27/21 History Allergies Allergies Allergy/AdvReac Type Severity Reaction Status Date / Time morphine AdvReac Severe Alternate Verified 09/27/21 10:25 mental status Mental Status Exam Mental Status Exam Patient Appearance: Appropriate Patient Orientation: Person Level of Consciousness: Disoriented and Obtunded Patient Behavior: Guarded and Passive Mood Description: Withdrawn Affect Description: Blunted Patient Cognition Impaired: Yes Ability to Follow Directions: Fair Speech Pattern: Monotone Hallucinations: None Delusions: Not Present Thought Process: Distracted Depressive Symptoms: Increased Anxiety, Insomnia and Increased Irritability Judgement: Poor Assessment & Plan Assessment & Plan (1) Delusion: Status: Acute Code(s): 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 She recently have several losses such as the suicide of her daughter who was the primary caregiver. At this moment the patient has a UTI, failure to thrive weight loss and inability to take care of herself. Plan 1. Gather collateral information. 2. Continue Remeron. 3. Continue medical workup Patient educated on: diagnosis and medication risk/benefits Informed Consent: further education needed Reason for continued inpatient stay Substantial Risk for: harm to self, inability to function, rapid decompensation and med/psych decompensation
--- NOTE | 2021-09-28 16:51 | MHC.SL.SWA ---
Speech Pathologist Impression: Risk of Aspiration Due to: Poor PO Intake Dysphasia Diet Status: Liquid Consistency and Strategies for Safe Swallow: Liquid Intake Recommendation: Thin Liquid Intake Strategies: Unrestricted Solid Food Consistency: Dietary Recommendations: Regular Additional Modifications to Solid Foods: Oral Medication Intake: Whole with Liquid Please contact the pharmacy regarding appropriate crushable or liquid drug formulations that are available whenever modified delivery is recommended. Compensatory Strategies and Precautions to be Taken for Safe Swallow: Sitting Upright (90 deg) Supervision While Eating and Drinking for Safe Swallow: Intermittent Supervision Foods to Avoid: Patient may benefit from smaller, more frequent meals to encourage PO intake. Given history of GERD, patient should remain upright after meals for at least thirty minutes. Swallowing Recommended Treatments: Recommendation for Speech: NA:Typical Evaluation Comment: On Bedside Evaluation of motoric aspects of swallowing, Patient presents with all aspects of swallow WFL, with no aspiration risk evident. Patient has a history of GERD, had evident mild dyspepsia (burping) after eating a small amount of fruit, expresses a high level of anxiety about digestive issues and food in general which likely impacts her food intake. Patient may benefit from eating smaller, more frequent meals to encourage P.O intake. Patient may benefit from GI consult to rule out other digestive issues. Frequency/Duration: No further services from Speech recommended as Swallow function is WFL. Please re-contact if additional issues arise. Date Range for Service Req: Timeline to reassess: NA Supervisor Meter Repair Shop Clinican/Clinical Fellow: No Supervisory Statement: I have reviewed and agree with the student/clinical fellow's documentation: N/A Speech Language Pathologist: Marycruz Morgan M.A., CCC-TELECASTING TECHNICIAN
[2021-09-28 18:00] VITALS: BP 130/61; PULSE 88; RESP 16; TEMP 36.6; O2SAT 95
[2021-09-28] MEDS: Atorvastatin Calcium 40 MG TABLET PO (20:17)
[2021-09-29] MEDS: hydrOXYzine HCL 25 MG TABLET PO (03:25)
[2021-09-29 06:00] VITALS: BP 118/58; PULSE 85; RESP 16; TEMP 36.2; O2SAT 95
[2021-09-29] MEDS: Apixaban 2.5 MG TABLET PO ×2 (08:57→20:45)
[2021-09-29] MEDS: clonazePAM 0.5 MG TABLET 0.25 MG PO ×2 (08:57→20:45)
[2021-09-29] MEDS: DULoxetine HCl 20 MG CAPSULE.DR PO (08:57)
[2021-09-29] MEDS: Mirtazapine 15 MG TABLET PO (08:57)
[2021-09-29] MEDS: amLODIPine Besylate 10 MG TABLET PO (08:57)
[2021-09-29] MEDS: Metoprolol Tartrate 100 MG TABLET PO ×2 (08:57→20:45)
[2021-09-29] MEDS: Calcium + Vitamin D 250 MG TABLET PO (08:57)
--- NOTE | 2021-09-29 12:10 | HO.PSYCHPN ---
Subjective Subjective Date of Service: 09/29/21 Reason For Visit: Delirium Subjective Notes: Conditional Voluntary Interim History: The nursing staff reported that the patient has been flat, isolated and confused. She looks very depressed and hopeless. The elementary school social worker reported that she contact her son yesterday and apparently of November of 2019 she lost 1 of her daughters, later in January of 2021 her and on Jul 09 2021 another daughter, who was her caregiver, commit suicide. According to the son since November of 2019 her cognition and level of function has been very low. Apparently she was admitted at [facility] for 2 weeks on the medical [place] with psychiatric treatment. She has been isolative since then, very depressed and dysphoric. I received a phone call from her outpatient provider Daysi Wylie, and she reported that the patient has been suffering from dementia, worsening depression and anxiety. And she was the 1 who refer her to the emergency room On interview, the patient was very frustrated because she could not finish the [place] test, she remains dysphoric and depressed. Mental Status Exam Mental Status Exam Patient Appearance: Appropriate Patient Orientation: Person and Situation Level of Consciousness: Awake Patient Behavior: Guarded and Passive Mood Description: Withdrawn Affect Description: Depressed Patient Cognition Impaired: Yes Ability to Follow Directions: Good Speech Pattern: Clear Hallucinations: None Delusions: Paranoid Ideation Thought Process: Distracted Thought Content: positive for [place], positive for Circumstantial and positive for Thought Blocking Judgement: Fair Diagnostics Vital Signs (24Hr): Vital Signs - 24 hr 09/28/21 18:00 09/29/21 06:00 Temperature 97.9 F 97.1 F Pulse Rate 88 85 Respiratory Rate 16 16 Blood Pressure 130/61 118/58 L Pulse Oximetry 95 95 Oxygen Delivery Method Room Air Room Air BMI result Body Mass Index 16.5 Labs Results: 09/27/21 10:36 09/28/21 07:53 Labs: Laboratory Results - last 48 hr 09/27/21 09/27/21 09/27/21 10:36 13:02 14:41 Sodium 146 H Potassium 3.8 Chloride 108 Carbon Dioxide 25 Anion Gap 17 BUN 32 H Creatinine 1.37 Estim Creat Clear Calc 20.4 Estimated GFR 37 Random Glucose 116 H Fasting Glucose Calcium 9.8 Total Bilirubin 0.9 Direct Bilirubin 0.4 AST 21 ALT 41 H Alkaline Phosphatase 78 D Total Protein 6.8 Albumin 4.1 Triglycerides Cholesterol LDL Cholesterol, Calc HDL Cholesterol Urine Color YELLOW Urine Appearance HAZY Urine pH 5.5 Ur Specific [place] >= 1.030 H Urine Protein NEG Urine Glucose (UA) NEG Urine Ketones 5 Urine Blood NEG Urine Nitrite NEG Ur Leukocyte Esterase NEG Urine Opiates Screen Urine Fentanyl Screen Ur Barbiturates Screen Ur Phencyclidine Scrn Ur Amphetamines Screen U Benzodiazepines Scrn Urine Cocaine Screen U Marijuana (THC) Screen COVID-19 (KYLEE) Negative COVID-19 Clin Com See Note 09/27/21 09/28/21 14:41 07:53 Sodium 144 Potassium 4.0 Chloride 109 H Carbon Dioxide 21 L Anion Gap 18 BUN 32 H Creatinine 0.97 Estim Creat Clear Calc 28.8 Estimated GFR 55 Random Glucose Fasting Glucose 62 Calcium 9.4 Total Bilirubin 1.0 Direct Bilirubin AST 21 ALT 35 H Alkaline Phosphatase 63 Total Protein 6.4 L Albumin 3.9 Triglycerides 101 Cholesterol 139 LDL Cholesterol, Calc 73 HDL Cholesterol 46 Urine Color Urine Appearance Urine pH Ur Specific [place] Urine Protein Urine Glucose (UA) Urine Ketones Urine Blood Urine Nitrite Ur Leukocyte Esterase Urine Opiates Screen Not Detected Urine Fentanyl Screen Not Detected Ur Barbiturates Screen Not Detected Ur Phencyclidine Scrn Not Detected Ur Amphetamines Screen Not Detected U Benzodiazepines Scrn Not Detected Urine Cocaine Screen Not Detected U Marijuana (THC) Screen Not Detected COVID-19 (KYLEE) COVID-19 Clin Com Medications Medications Current Medications Acetaminophen (Acetaminophen 325 Mg Tablet) 650 mg PO Q6H PRN PRN Reason: Headache/Pain Mild Scale (1-3) Al Hydroxide/Mg Hydroxide (Magnesium Hydrox/Alum Hydrox 30 Ml Oral.Susp) 30 ml PO Q6H PRN PRN Reason: Heartburn/Nausea Amlodipine Besylate (Amlodipine Besylate 10 Mg Tablet) 10 mg PO DAILY [facility]; Protocol Last Admin: 09/29/21 08:57 Dose: 10 mg Apixaban (Apixaban 2.5 Mg Tablet) 2.5 mg PO BID [facility] Last Admin: 09/29/21 08:57 Dose: 2.5 mg Atorvastatin Calcium (Atorvastatin Calcium 40 Mg Tablet) 40 mg PO BEDTIME [facility] Last Admin: 09/28/21 20:17 Dose: 40 mg Calcitonin [place] (Calcitonin,[place],Synth Nasal 3.7 Ml Bottle) 1 spray NOSTRILALT DAILY [facility] Last Admin: 09/28/21 10:59 Dose: Not Given Calcium Carbonate/Cholecalciferol (Calcium + Vitamin D 250 Mg Tablet) 250 mg PO DAILY [facility] Last Admin: 09/29/21 08:57 Dose: 250 mg Clonazepam (Clonazepam 0.5 Mg Tablet) 0.25 mg PO BID [facility] Last Admin: 09/29/21 08:57 Dose: 0.25 mg Digoxin (Digoxin 0.125 Mg Tablet) 0.125 mg PO WETH [facility] Last Admin: 09/28/21 10:58 Dose: 0.125 mg Duloxetine HCl (Duloxetine Hcl 20 Mg Capsule.Dr) 20 mg PO DAILY [facility] Last Admin: 09/29/21 08:57 Dose: 20 mg Hydroxyzine HCl (Hydroxyzine Hcl 25 Mg Tablet) 25 mg PO Q6H PRN PRN Reason: Anxiety Last Admin: 09/29/21 03:25 Dose: 25 mg Magnesium Hydroxide (Milk Of Magnesia 30 Ml Oral.Susp) 30 ml PO DAILY PRN PRN Reason: Constipation Metoprolol Tartrate (Metoprolol Tartrate 100 Mg Tablet) 100 mg PO BID [facility]; Protocol Last Admin: 09/29/21 08:57 Dose: 100 mg Mirtazapine (Mirtazapine 15 Mg Tablet) 15 mg PO DAILY [facility] Last Admin: 09/29/21 08:57 Dose: 15 mg Trazodone HCl (Trazodone Hcl 50 Mg Tablet) 50 mg PO BEDTIME PRN PRN Reason: Insomnia Allergies Allergies Allergy/AdvReac Type Severity Reaction Status Date / Time morphine AdvReac Severe Alternate Verified 09/27/21 10:25 mental status Assessment & Plan Assessment & Plan (1) Delusion: Status: Acute Code(s): 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 She recently have several losses such as the suicide of her daughter who was the primary caregiver. At this moment the patient has a UTI, failure to thrive weight loss and inability to take care of herself. Plan 1. Gather collateral information. 2. Continue Remeron. 3. Continue medical workup I spent ___20___ minutes with the patient and/or on the patient floor today, greater than?50% of which was spent counseling/coordinating care. Reason for contiued inpatient stay Substantial Risk for: inability to function, rapid decompensation and med/psych decompensation
[2021-09-29] MEDS: Digoxin 0.125 MG TABLET PO (12:23)
[2021-09-29] MEDS: Calcitonin,Salmon,Synth Nasal 3.7 ML BOTTLE 1 SPRAY NOSTRILALT (12:23)
--- NOTE | 2021-09-29 16:21 | MHC.CLN ---
F/U SEEN BY CARROTING MACHINE OPERATOR AND REGULAR DIET APPROPRIATE. PATIENT WITH SOME ANXIETY SURROUNDING FOOD. ACCEPTS MEALS. FOLLOW MEAL AND SUPPLEMENT INTAKE.
[2021-09-29 20:35] VITALS: BP 103/62; PULSE 70; RESP 16; TEMP 36.5; O2SAT 97
[2021-09-29] MEDS: Atorvastatin Calcium 40 MG TABLET PO (20:45)
[2021-09-30 06:00] VITALS: BP 122/68; PULSE 82; RESP 16; TEMP 36.9; O2SAT 97
[2021-09-30] MEDS: Mirtazapine 15 MG TABLET PO (08:44)
[2021-09-30] MEDS: clonazePAM 0.5 MG TABLET 0.25 MG PO ×2 (08:45→20:53)
[2021-09-30] MEDS: Calcium + Vitamin D 250 MG TABLET PO (08:47)
[2021-09-30] MEDS: DULoxetine HCl 20 MG CAPSULE.DR PO (08:47)
[2021-09-30] MEDS: Apixaban 2.5 MG TABLET PO ×2 (08:47→20:53)
[2021-09-30] MEDS: Metoprolol Tartrate 100 MG TABLET PO ×2 (08:47→20:53)
[2021-09-30] MEDS: amLODIPine Besylate 10 MG TABLET PO (08:47)
[2021-09-30] MEDS: Calcitonin,Salmon,Synth Nasal 3.7 ML BOTTLE 1 SPRAY NOSTRILALT (09:33)
--- NOTE | 2021-09-30 18:33 | HO.PSYCHPN ---
Subjective Subjective Date of Service: 09/30/21 Reason For Visit: Delirium Interim History: Patient seen and discussed with nursing. She has been depressed. She says she is not feeling well. I am very depressed. She has not been eating well. She had a swallow eval that was not diagnostic of any abnormalities. From 09/29/21 note:The hospice social worker reported that she contact her son yesterday and apparently of November of 2019 she lost 1 of her daughters, later in January of 2021 her and on Jul 09 2021 another daughter, who was her caregiver, commit suicide. According to the son since November of 2019 her cognition and level of function has been very low. Apparently she was admitted at [facility] for 2 weeks on the medical [facility] with psychiatric treatment. She has been isolative since then, very depressed and dysphoric. I received a phone call from her outpatient provider Daysi Wylie, and she reported that the patient has been suffering from dementia, worsening depression and anxiety. And she was the 1 who refer her to the emergency room Review of Systems Review of Systems Yes Unobtainable due to mental status Mental Status Exam Mental Status Exam Patient Appearance: Appropriate Patient Orientation: Person and Situation Level of Consciousness: Awake and Alert Patient Behavior: Guarded, Passive and Timid Mood Description: Withdrawn, Depressed, Anxious, Sad, Nervous and Apprehensive Affect Description: Depressed, Sad, Nervous and Apprehensive Patient Cognition Impaired: Yes Ability to Follow Directions: Good Speech Pattern: Clear and Spontaneous Speech Memory Description: Immediate Impaired Hallucinations: None Thought Process: Rumination Depressive Symptoms: Increased Anxiety, Diff. Making Decisions, Changes in Appetite, Significant Weight Loss and Hopelessness Abnormal Motor Activity Signs and Symptoms: Psychomotor Retardation Judgement: Poor Diagnostics Vital Signs (24Hr): Vital Signs - 24 hr 09/29/21 20:35 09/30/21 06:00 Temperature 97.7 F 98.5 F Pulse Rate 70 82 Respiratory Rate 16 16 Blood Pressure 103/62 122/68 Pulse Oximetry 97 97 Oxygen Delivery Method Room Air Room Air BMI result Body Mass Index 16.5 Labs Results: 09/27/21 10:36 09/28/21 07:53 Medications Medications Current Medications Acetaminophen (Acetaminophen 325 Mg Tablet) 650 mg PO Q6H PRN PRN Reason: Headache/Pain Mild Scale (1-3) Al Hydroxide/Mg Hydroxide (Magnesium Hydrox/Alum Hydrox 30 Ml Oral.Susp) 30 ml PO Q6H PRN PRN Reason: Heartburn/Nausea Amlodipine Besylate (Amlodipine Besylate 10 Mg Tablet) 10 mg PO DAILY [facility]; Protocol Last Admin: 09/30/21 08:47 Dose: 10 mg Apixaban (Apixaban 2.5 Mg Tablet) 2.5 mg PO BID [facility] Last Admin: 09/30/21 08:47 Dose: 2.5 mg Atorvastatin Calcium (Atorvastatin Calcium 40 Mg Tablet) 40 mg PO BEDTIME [facility] Last Admin: 09/29/21 20:45 Dose: 40 mg Calcitonin [place] (Calcitonin,[place],Synth Nasal 3.7 Ml Bottle) 1 spray NOSTRILALT DAILY [facility] Last Admin: 09/30/21 09:33 Dose: 1 spray Calcium Carbonate/Cholecalciferol (Calcium + Vitamin D 250 Mg Tablet) 250 mg PO DAILY [facility] Last Admin: 09/30/21 08:47 Dose: 250 mg Clonazepam (Clonazepam 0.5 Mg Tablet) 0.25 mg PO BID [facility] Last Admin: 09/30/21 08:45 Dose: 0.25 mg Digoxin (Digoxin 0.125 Mg Tablet) 0.125 mg PO WE [facility] Last Admin: 09/29/21 12:23 Dose: 0.125 mg Duloxetine HCl (Duloxetine Hcl 20 Mg Capsule.Dr) 20 mg PO DAILY [facility] Last Admin: 09/30/21 08:47 Dose: 20 mg Hydroxyzine HCl (Hydroxyzine Hcl 25 Mg Tablet) 25 mg PO Q6H PRN PRN Reason: Anxiety Last Admin: 09/29/21 03:25 Dose: 25 mg Magnesium Hydroxide (Milk Of Magnesia 30 Ml Oral.Susp) 30 ml PO DAILY PRN PRN Reason: Constipation Metoprolol Tartrate (Metoprolol Tartrate 100 Mg Tablet) 100 mg PO BID [facility]; Protocol Last Admin: 09/30/21 08:47 Dose: 100 mg Mirtazapine (Mirtazapine 15 Mg Tablet) 15 mg PO DAILY [facility] Last Admin: 09/30/21 08:44 Dose: 15 mg Trazodone HCl (Trazodone Hcl 50 Mg Tablet) 50 mg PO BEDTIME PRN PRN Reason: Insomnia Allergies Allergies Allergy/AdvReac Type Severity Reaction Status Date / Time morphine AdvReac Severe Alternate Verified 09/27/21 10:25 mental status Assessment & Plan Assessment & Plan (1) Delusion: Status: Acute Code(s): 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 She recently have several losses such as the suicide of her daughter who was the primary caregiver. At this moment the patient has a UTI, failure to thrive weight loss and inability to take care of herself. Plan 1. Gather collateral information. 2. Continue Remeron. 3. Continue medical workup 09/30: Coninue treatment plan. Encourage PO. I spent minutes with the patient and/or on the patient floor today, greater than?50% of which was spent counseling/coordinating care. Reason for contiued inpatient stay Substantial Risk for: harm to self, inability to function, rapid decompensation and med/psych decompensation
[2021-09-30 20:45] VITALS: BP 136/67; PULSE 82; RESP 16; TEMP 36.8; O2SAT 98
[2021-09-30] MEDS: Atorvastatin Calcium 40 MG TABLET PO (20:53)
[2021-10-01 07:45] VITALS: BP 116/60; PULSE 87; RESP 16; TEMP 37.1; O2SAT 95
[2021-10-01] MEDS: Calcium + Vitamin D 250 MG TABLET PO (08:32)
[2021-10-01] MEDS: amLODIPine Besylate 10 MG TABLET PO (08:32)
[2021-10-01] MEDS: clonazePAM 0.5 MG TABLET 0.25 MG PO ×2 (08:34→20:56)
[2021-10-01] MEDS: DULoxetine HCl 20 MG CAPSULE.DR PO (08:34)
[2021-10-01] MEDS: Apixaban 2.5 MG TABLET PO ×2 (08:35→20:57)
[2021-10-01] MEDS: Mirtazapine 15 MG TABLET PO (08:35)
[2021-10-01] MEDS: Metoprolol Tartrate 100 MG TABLET PO ×2 (08:35→20:55)
[2021-10-01] MEDS: Calcitonin,Salmon,Synth Nasal 3.7 ML BOTTLE 1 SPRAY NOSTRILALT (09:23)
--- NOTE | 2021-10-01 15:28 | P.PNPSI_ITS ---
Subjective Subjective Date of Service: 10/01/21 Reason For Visit: Delirium Interim History: Patient seen and discussed with nursing. Patient remains depressed and anxious. Poor appetite. She says ensures go right through me. She denies SI or AVH. Remains indecisive, apprehensive and hesitant on approach. From 09/29/21 note:The professor of social work reported that she contact her son yesterday and apparently of November of 2019 she lost 1 of her daughters, later in January of 2021 her and on Jul 09 2021 another daughter, who was her caregiver, commit suicide. According to the son since November of 2019 her cognition and level of function has been very low. Apparently she was admitted at [facility] for 2 weeks on the medical [place] with psychiatric jhonny cook. She has been isolative since then, very depressed and dysphoric. I received a phone call from her outpatient provider Daysi Wylie, and she reported that the patient has been suffering from dementia, worsening depression and anxiety. And she was the 1 who refer her to the e mergency room Review of Systems Review of Systems Yes Unobtainable due to mental status Mental Status Exam Mental Status Exam Patient Appearance: Appropriate Patient Orientation: Person and Situation Level of Consciousness: Awake and Alert Patient Behavior: Guarded, Passive and Timid Mood Description: Withdrawn, Depressed, Anxious, Sad, Nervous and Apprehensive Affect Description: Depressed, Sad, Nervous and Apprehensive Patient Cognition Impaired: Yes Ability to Follow Directions: Good Speech Pattern: Clear and Spontaneous Speech Memory Description: Immediate Impaired Hallucinations: None Thought Process: Slowed Thinking Thought Content: positive for Obsessional Thoughts and positive for [place] Depressive Symptoms: Increased Anxiety, Diff. Making Decisions, Changes in Appetite, Significant Weight Loss and Hopelessness Judgement: Fair Diagnostics Vital Signs (24Hr): Vital Signs - 24 hr 09/30/21 20:45 Temperature 98.2 F Pulse Rate 82 Respiratory Rate 16 Blood Pressure 136/67 Pulse Oximetry 98 Oxygen Delivery Method Room Air BMI result Body Mass Index 16.5 Labs Results: 09/27/21 10:36 09/28/21 07:53 Medications Medications Current Medications Acetaminophen (Acetaminophen 325 Mg Tablet) 650 mg PO Q6H PRN PRN Reason: Headache/Pain Mild Scale (1-3) Al Hydroxide/Mg Hydroxide (Magnesium Hydrox/Alum Hydrox 30 Ml Oral.Susp) 30 ml PO Q6H PRN PRN Reason: Heartburn/Nausea Amlodipine Besylate (Amlodipine Besylate 10 Mg Tablet) 10 mg PO DAILY [facility]; Protocol Last Admin: 10/01/21 08:32 Dose: 10 mg Apixaban (Apixaban 2.5 Mg Tablet) 2.5 mg PO BID [facility] Last Admin: 10/01/21 08:35 Dose: 2.5 mg Atorvastatin Calcium (Atorvastatin Calcium 40 Mg Tablet) 40 mg PO BEDTIME [facility] Last Admin: 09/30/21 20:53 Dose: 40 mg Calcitonin [place]ol[place] (Calcitonin,[place]ol[place],Synth Nasal 3.7 Ml Bottle) 1 spray NO STRILALT DAILY [facility] Last Admin: 10/01/21 09:23 Dose: 1 spray Calcium Carbonate/Cholecalciferol (Calcium + Vitamin D 250 Mg Tablet) 250 mg PO DAILY [facility] Last Admin: 10/01/21 08:32 Dose: 250 mg Clonazepam (Clonazepam 0.5 Mg Tablet) 0.25 mg PO BID [facility] Last Admin: 10/01/21 08:34 Dose: 0.25 mg Digoxin (Digoxin 0.125 Mg Tablet) 0.125 mg PO TUWETHFR [facility] Last Admin: 09/29/21 12:23 Dose: 0.125 mg Duloxetine HCl (Duloxetine Hcl 20 Mg Capsule.Dr) 20 mg PO DAILY [facility] Last Admin: 10/01/21 08:34 Dose: 20 mg Hydroxyzine HCl (Hydroxyzine Hcl 25 Mg Tablet) 25 mg PO Q6H PRN PRN Reason: Anxiety Last Admin: 09/29/21 03:25 Dose: 25 mg Magnesium Hydroxide (Milk Of Magnesia 30 Ml Oral.Susp) 30 ml PO DAILY PRN PRN Reason: Constipation Metoprolol Tartrate (Metoprolol Tartrate 100 Mg Tablet) 100 mg PO BID [facility]; Protocol Last Admin: 10/01/21 08:35 Dose: 100 mg Mirtazapine (Mirtazapine 15 Mg Tablet) 15 mg PO DAILY [facility] Last Admin: 10/01/21 08:35 Dose: 15 mg Trazodone HCl (Trazodone Hcl 50 Mg Tablet) 50 mg PO BEDTIME PRN PRN Reason: Insomnia Allergies Allergies Allergy/AdvReac Type Severity Reaction Status Date / Time morphine AdvReac Severe Alternate Verified 09/27/21 10:25 mental status Assessment & Plan Assessment & Plan (1) Delusion: Status: Acute Code(s): 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 She recently have several losses such as the suicide of her daughter who was the primary caregiver. At this moment the patient has a UTI, failure to thrive weight loss and inability to take care of herself. Plan 1. Gather collateral information. 2. Continue Remeron. 3. Continue medical workup 09/30: Coninue treatment plan. Encourage PO. 10/01: Consider low dose risperidone. Will defer to primary team. I spent minutes with the patient and/or on the patient floor today, greater than?50% of which was spent counseling/coordinating care. Reason for contiued inpatient stay Substantial Risk for: inability to function, rapid decompensation and med/psych decompensation
[2021-10-01 19:39] VITALS: BP 157/70; PULSE 70; RESP 18; TEMP 36.6; O2SAT 97
[2021-10-01] MEDS: Atorvastatin Calcium 40 MG TABLET PO (20:57)
[2021-10-02 06:00] VITALS: BP 133/62; PULSE 65; RESP 18; TEMP 36.8; O2SAT 95
[2021-10-02] MEDS: clonazePAM 0.5 MG TABLET 0.25 MG PO ×2 (08:24→21:33)
[2021-10-02] MEDS: DULoxetine HCl 20 MG CAPSULE.DR PO ×2 (08:25→21:35)
[2021-10-02] MEDS: Metoprolol Tartrate 100 MG TABLET PO ×2 (08:25→21:35)
[2021-10-02] MEDS: Mirtazapine 15 MG TABLET PO (08:25)
[2021-10-02] MEDS: Apixaban 2.5 MG TABLET PO ×2 (08:25→21:33)
[2021-10-02] MEDS: Calcium + Vitamin D 250 MG TABLET PO (08:25)
[2021-10-02] MEDS: amLODIPine Besylate 10 MG TABLET PO (08:25)
[2021-10-02] MEDS: Calcitonin,Salmon,Synth Nasal 3.7 ML BOTTLE 1 SPRAY NOSTRILALT (08:40)
--- NOTE | 2021-10-02 13:51 | P.PNPSI_ITS ---
Subjective Subjective Date of Service: 10/02/21 Reason For Visit: Delirium Subjective Notes: Conditional Voluntary Interim History: The nursing staff reported the patient has been weepy and fried food at night. He called her daughter explaining her that no ID was feeding her and she everything was dirty. Later on the staff talk with the daughter and explained h er that she was an inpatient level of care. On interview the patient was sleeping and she was very tired she reports dysphoria and she feels very sad for the recent losses. She agreed to increase antidepressants. Mental Status Exam Mental Status Exam Patient Appearance: Well Grooomed Patient Orientation: Person and Situation Level of Consciousness: Awake Patient Behavior: Cooperative Mood Description: Constricted Patient Cognition Impaired: Yes Ability to Follow Directions: Good Speech Pattern: Clear Hallucinations: None Delusions: Not Present Thought Process: Distracted Thought Content: positive for Disoriented and positive for [place] Judgement: Fair Diagnostics Vital Signs (24Hr): Vital Signs - 24 hr 10/01/21 19:39 Temperature 97.9 F Pulse Rate 70 Respiratory Rate 18 Blood Pressure 157/70 H Pulse Oximetry 97 Oxygen Delivery Method Room Air BMI result Body Mass Index 16.5 Labs Results: 09/27/21 10:36 09/28/21 07:53 Medications Medications Current Medications Acetaminophen (Acetaminophen 325 Mg Tablet) 650 mg PO Q6H PRN PRN Reason: Headache/Pain Mild Scale (1-3) Al Hydroxide/Mg Hydroxide (Magnesium Hydrox/Alum Hydrox 30 Ml Oral.Susp) 30 ml PO Q6H PRN PRN Reason: Heartburn/Nausea Amlodipine Besylate (Amlodipine Besylate 10 Mg Tablet) 10 mg PO DAILY [facility]; Protocol Last Admin: 10/02/21 08:25 Dose: 10 mg Apixaban (Apixaban 2.5 Mg Tablet) 2.5 mg PO BID [facility] Last Admin: 10/02/21 08:25 Dose: 2.5 mg Atorvastatin Calcium (Atorvastatin Calcium 40 Mg Tablet) 40 mg PO BEDTIME [facility] Last Admin: 10/01/21 20:57 Dose: 40 mg Calcitonin [place] (Calcitonin,[place],Synth Nasal 3.7 Ml Bottle) 1 spray NOSTRILALT DAILY [facility] Last Admin: 10/02/21 08:40 Dose: 1 spray Calcium Carbonate/Cholecalciferol (Calcium + Vitamin D 250 Mg Tablet) 250 mg PO DAILY [facility] Last Admin: 10/02/21 08:25 Dose: 250 mg Clonazepam (Clonazepam 0.5 Mg Tablet) 0.25 mg PO BID [facility] Last Admin: 10/02/21 08:24 Dose: 0.25 mg Digoxin (Digoxin 0.125 Mg Tablet) 0.125 mg PO [facility] Last Admin: 09/29/21 12:23 Dose: 0.125 mg Duloxetine HCl (Duloxetine Hcl 20 Mg Capsule.Dr) 20 mg PO BID [facility] Hydroxyzine HCl (Hydroxyzine Hcl 25 Mg Tablet) 25 mg PO Q6H PRN PRN Reason: Anxiety Last Admin: 09/29/21 03:25 Dose: 25 mg Magnesium Hydroxide (Milk Of Magnesia 30 Ml Oral.Susp) 30 ml PO DAILY PRN PRN Reason: Constipation Metoprolol Tartrate (Metoprolol Tartrate 100 Mg Tablet) 100 mg PO BID [facility]; Protocol Last Admin: 10/02/21 08:25 Dose: 100 mg Mirtazapine (Mirtazapine 15 Mg Tablet) 15 mg PO DAILY [facility] Last Admin: 10/02/21 08:25 Dose: 15 mg Trazodone HCl (Trazodone Hcl 50 Mg Tablet) 50 mg PO BEDTIME PRN PRN Reason: Insomnia Allergies Allergies Allergy/AdvReac Type Severity Reaction Status Date / Time morphine AdvReac Severe Alternate Verified 09/27/21 10:25 mental status Assessment & Plan Assessment & Plan (1) Delusion: Status: Acute Code(s): 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 She re cently have several losses such as the suicide of her daughter who was the primary caregiver. At this moment the patient has a UTI, failure to thrive weight loss and inability to take care of herself. Plan 1. Gather collateral information. 2. Continue Remeron. 3. Continue medical workup 4. Increased Cymbalta to 20 mg p.o. b.i.d. . 5. Start Risperdal 0.5 mg p.o. q.h.s. I spent __20____ minutes with the patient and/or on the patient floor today, greater than?50% of which was spent counseling/coordinating care. Reason for contiued inpatient stay Substantial Risk for: inability to function, rapid decompensation and med/psych decompensation
--- NOTE | 2021-10-02 16:20 | MHC.CLN ---
F/U REGULAR DIET-APPROPRIATE. ENSURE BID PROVIDES ADDITIONAL 700 KCALS, 40 G PROTEIN. FOLLOW WEIGHTS, MEAL AND SUPPLEMENT INTAKE.
[2021-10-02 18:00] VITALS: BP 138/73; PULSE 93; TEMP 36.4; O2SAT 96
[2021-10-02] MEDS: Atorvastatin Calcium 40 MG TABLET PO (21:33)
[2021-10-02] MEDS: risperiDONE 0.5 MG TABLET PO (21:35)
[2021-10-03 07:55] VITALS: BP 144/70; PULSE 90; RESP 16; TEMP 36.5; O2SAT 95
[2021-10-03] MEDS: clonazePAM 0.5 MG TABLET 0.25 MG PO ×2 (07:57→21:19)
[2021-10-03] MEDS: Apixaban 2.5 MG TABLET PO ×2 (07:58→21:20)
[2021-10-03] MEDS: Calcium + Vitamin D 250 MG TABLET PO (07:58)
[2021-10-03] MEDS: DULoxetine HCl 20 MG CAPSULE.DR PO ×2 (07:59→21:18)
[2021-10-03] MEDS: amLODIPine Besylate 10 MG TABLET PO (07:59)
[2021-10-03] MEDS: Mirtazapine 15 MG TABLET PO (07:59)
[2021-10-03] MEDS: Metoprolol Tartrate 100 MG TABLET PO ×2 (07:59→21:18)
[2021-10-03] MEDS: Calcitonin,Salmon,Synth Nasal 3.7 ML BOTTLE 1 SPRAY NOSTRILALT (08:05)
[2021-10-03] MEDS: Digoxin 0.125 MG TABLET PO (08:10)
--- NOTE | 2021-10-03 12:36 | P.PNPSI_ITS ---
Subjective Subjective Date of Service: 10/03/21 Reason For Visit: Delirium Subjective Notes: Conditional Voluntary Interim History: The nursing staff reported the patient has been very hopeless with lack of energy with need for all her ADL eyes. She has court on the [place] 02/23 and her [place] test history 0.6. Since she had a long history of TIAs and strokes we w ill order a new CT scan today. On interview the patient reports that she is still depressed very tired. Mental Status Exam Mental Status Exam Patient Appearance: Well Grooomed Patient Orientation: Person and Situation Level of Consciousness: Awake Patient Behavior: Cooperative Mood Description: Withdrawn Affect Description: Constricted Patient Cognition Impaired: Yes Ability to Follow Directions: Good Speech Pattern: Clear Hallucinations: None Delusions: Not Present Thought Process: Distracted and Slowed Thinking Thought Content: positive for [place] Judgement: Fair Diagnostics Vital Signs (24Hr): Vital Signs - 24 hr 10/02/21 18:00 10/03/21 07:55 Temperature 97.5 F 97.7 F Pulse Rate 93 90 Respiratory Rate 16 Blood Pressure 138/73 144/70 H Pulse Oximetry 96 95 Oxygen Delivery Method Room Air BMI result Body Mass Index 16.5 Labs Results: 09/27/21 10:36 09/28/21 07:53 Medications Medications Current Medications Acetaminophen (Acetaminophen 325 Mg Tablet) 650 mg PO Q6H PRN PRN Reason: Headache/Pain Mild Scale (1-3) Al Hydroxide/Mg Hydroxide (Magnesium Hydrox/Alum Hydrox 30 Ml Oral.Susp) 30 ml PO Q6H PRN PRN Reason: Heartburn/Nausea Amlodipine Besylate (Amlodipine Besylate 10 Mg Tablet) 10 mg PO DAILY [facility]; Protocol Last Admin: 10/03/21 07:59 Dose: 10 mg Apixaban (Apixaban 2.5 Mg Tablet) 2.5 mg PO BID [facility] Last Admin: 10/03/21 07:58 Dose: 2.5 mg Atorvastatin Calcium (Atorvastatin Calcium 40 Mg Tablet) 40 mg PO BEDTIME [facility] Last Admin: 10/02/21 21:33 Dose: 40 mg Calcitonin [place] (Calcitonin,[place],Synth Nasal 3.7 Ml Bottle) 1 spray NOSTRILALT DAILY [facility] Last Admin: 10/03/21 08:05 Dose: 1 spray Calcium Carbonate/Cholecalciferol (Calcium + Vitamin D 250 Mg Tablet) 250 mg PO DAILY [facility] Last Admin: 10/03/21 07:58 Dose: 250 mg Clonazepam (Clonazepam 0.5 Mg Tablet) 0.25 mg PO BID [facility] Last Admin: 10/03/21 07:57 Dose: 0.25 mg Digoxin (Digoxin 0.125 Mg Tablet) 0.125 mg PO TUWETH [facility] Last Admin: 10/03/21 08:10 Dose: 0.125 mg Duloxetine HCl (Duloxetine Hcl 20 Mg Capsule.Dr) 20 mg PO BID [facility] Last Admin: 10/03/21 07:59 Dose: 20 mg Hydroxyzine HCl (Hydroxyzine Hcl 25 Mg Tablet) 25 mg PO Q6H PRN PRN Reason: Anxiety Last Admin: 09/29/21 03:25 Dose: 25 mg Magnesium Hydroxide (Milk Of Magnesia 30 Ml Oral.Susp) 30 ml PO DAILY PRN PRN Reason: Constipation Metoprolol Tartrate (Metoprolol Tartrate 100 Mg Tablet) 100 mg PO BID [facility]; Protocol Last Admin: 10/03/21 07:59 Dose: 100 mg Mirtazapine (Mirtazapine 15 Mg Tablet) 15 mg PO DAILY [facility] Last Admin: 10/03/21 07:59 Dose: 15 mg Risperidone (Risperidone 0.5 Mg Tablet) 0.5 mg PO BEDTIME [facility] Last Admin: 10/02/21 21:35 Dose: 0.5 mg Trazodone HCl (Trazodone Hcl 50 Mg Tablet) 50 mg PO BEDTIME PRN PRN Reason: Insomnia Allergies Allergies Allergy/AdvReac Type Severity Reaction Status Date / Time morphine AdvReac Severe Alternate Verified 09/27/21 10:25 mental status Assessment & Plan Assessment & Plan (1) Delusion: Status: Acute Code(s): 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 She recently have several losses such as the suicide of her daughter who was the primary caregiver. At this moment the patient has a UTI, failure to thrive weight loss and inability to take care of herself. Plan 1. Gather collateral information. 2. Continue Remeron. 3. Continue medical workup 4. Increased Cymbalta to 20 mg p.o. b.i.d. . 5. Start Risperdal 0.5 mg p.o. q.h.s. I spent ___20___ minutes with the patient and/or on the patient floor today, greater than?50% of which was spent counseling/coordinating care. Reason for contiued inpatient stay Substantial Risk for: inability to function, rapid decompensation and med/psych decompensation
[2021-10-03 18:00] VITALS: BP 136/64; PULSE 80; RESP 14; TEMP 36.6; O2SAT 97
[2021-10-03] MEDS: risperiDONE 0.5 MG TABLET PO (21:19)
[2021-10-03] MEDS: Atorvastatin Calcium 40 MG TABLET PO (21:20)
[2021-10-04 07:48] VITALS: BP 125/65; PULSE 77; RESP 16; TEMP 35.9; O2SAT 97
[2021-10-04] MEDS: Metoprolol Tartrate 100 MG TABLET PO ×2 (09:20→20:28)
[2021-10-04] MEDS: Apixaban 2.5 MG TABLET PO ×2 (09:20→20:29)
[2021-10-04] MEDS: clonazePAM 0.5 MG TABLET 0.25 MG PO ×2 (09:21→20:29)
[2021-10-04] MEDS: DULoxetine HCl 20 MG CAPSULE.DR PO (09:21)
[2021-10-04] MEDS: amLODIPine Besylate 10 MG TABLET PO (09:21)
[2021-10-04] MEDS: Calcitonin,Salmon,Synth Nasal 3.7 ML BOTTLE 1 SPRAY NOSTRILALT (09:22)
[2021-10-04] MEDS: Calcium + Vitamin D 250 MG TABLET PO (09:22)
[2021-10-04] MEDS: Mirtazapine 15 MG TABLET PO (09:24)
[2021-10-04 09:25] VITALS: PULSE 72
[2021-10-04] MEDS: Digoxin 0.125 MG TABLET PO (09:27)
--- NOTE | 2021-10-04 13:34 | P.PNPSI_ITS ---
Subjective Subjective Date of Service: 10/04/21 Reason For Visit: Delirium Subjective Notes: Conditional Voluntary Interim History: The nursing staff reported the patient is able to eat with help of the staff. The patient needs constant redirection and cues for her ADL less. The CT scan came back without min abnormalities. Today we had a family meeting and we explained the plan to 1st treat the depression and in later the cognitive impairment. On interview the patient denies new symptoms, still very dysphoric with lack of energy. We will increase Cymbalta up to 30 mg p.o. b.i.d. today. Mental Status Exam Mental Status Exam Patient Appearance: Well Grooomed Patient Orientation: Person and Situation Level of Consciousness: Awake and Appropriate Patient Behavior: Guarded, Passive and Suspicious Mood Description: Withdrawn Affect Description: Blunted Patient Cognition Impaired: Yes Ability to Follow Directions: Good Speech Pattern: Clear Memory Description: Intact Hallucinations: None Delusions: Not Present Thought Process: Linear Thought Content: positive for Thought Blocking Judgement: Poor Diagnostics Vital Signs (24Hr): Vital Signs - 24 hr 10/03/21 18:00 10/04/21 07:48 10/04/21 09:25 Temperature 97.8 F 96.6 F L Pulse Rate 80 77 72 Respiratory Rate 14 16 Blood Pressure 136/64 125/65 Pulse Oximetry 97 97 Oxygen Delivery Method Room Air Room Air BMI result Body Mass Index 16.5 Labs Results: 09/27/21 10:36 09/28/21 07:53 Imaging Radiology Impressions: ITS Impressions Head CT 10/03/21 11:57 IMPRESSION: There are scattered chronic small vessel ischemic changes primarily involving the periventricular white matter, basal ganglia, and thalami. Grossly no evidence of acute territorial infarct or hemorrhage. Medications Medications Current Medications Acetaminophen (Acetaminophen 325 Mg Tablet) 650 mg PO Q6H PRN PRN Reason: Headache/Pain Mild Scale (1-3) Al Hydroxide/Mg Hydroxide (Magnesium Hydrox/Alum Hydrox 30 Ml Oral.Susp) 30 ml PO Q6H PRN PRN Reason: Heartburn/Nausea Amlodipine Besylate (Amlodipine Besylate 10 Mg Tablet) 10 mg PO DAILY [facility]; Protocol Last Admin: 10/04/21 09:21 Dose: 10 mg Apixaban (Apixaban 2.5 Mg Tablet) 2.5 mg PO BID [facility] Last Admin: 10/04/21 09:20 Dose: 2.5 mg Atorvastatin Calcium (Atorvastatin Calcium 40 Mg Tablet) 40 mg PO BEDTIME [facility] Last Admin: 10/03/21 21:20 Dose: 40 mg Calcitonin [place] (Calcitonin,[place],Synth Nasal 3.7 Ml Bottle) 1 spray NOSTRILALT DAILY [facility] Last Admin: 10/04/21 09:22 Dose: 1 spray Calcium Carbonate/Cholecalciferol (Calcium + Vitamin D 250 Mg Tablet) 250 mg PO DAILY [facility] Last Admin: 10/04/21 09:22 Dose: 250 mg Clonazepam (Clonazepam 0.5 Mg Tablet) 0.25 mg PO BID [facility] Last Admin: 10/04/21 09:21 Dose: 0.25 mg Digoxin (Digoxin 0.125 Mg Tablet) 0.125 mg PO WE [facility] Last Admin: 10/04/21 09:27 Dose: 0.125 mg Duloxetine HCl (Duloxetine Hcl 20 Mg Capsule.Dr) 20 mg PO BID [facility] Last Admin: 10/04/21 09:21 Dose: 20 mg Hydroxyzine HCl (Hydroxyzine Hcl 25 Mg Tablet) 25 mg PO Q6H PRN PRN Reason: Anxiety Last Admin: 09/29/21 03:25 Dose: 25 mg Magnesium Hydroxide (Milk Of Magnesia 30 Ml Oral.Susp) 30 ml PO DAILY PRN PRN Reason: Constipation Metoprolol Tartrate (Metoprolol Tartrate 100 Mg Tablet) 100 mg PO BID [facility]; Protocol Last Admin: 10/04/21 09:20 Dose: 100 mg Mirtazapine (Mirtazapine 15 Mg Tablet) 15 mg PO DAILY [facility] Last Admin: 10/04/21 09:24 Dose: 15 mg Risperidone (Risperidone 0.5 Mg Tablet) 0.5 mg PO BEDTIME [facility] Last Admin: 10/03/21 21:19 Dose: 0.5 mg Trazodone HCl (Trazodone Hcl 50 Mg Tablet) 50 mg PO BEDTIME PRN PRN Reason: Insomnia Allergies Allergies Allergy/AdvReac Type Severity Reaction Status Date / Time morphine AdvReac Severe Alternate Verified 09/27/21 10:25 mental status Assessment & Plan Assessment & Plan (1) Delusion: Status: Acute Code(s): 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 She re cently have several losses such as the suicide of her daughter who was the primary caregiver. At this moment the patient has a UTI, failure to thrive weight loss and inability to take care of herself. Plan 1. Gather collateral information. 2. Continue Remeron. 3. Continue medical workup 4. Increased Cymbalta to 30 mg p.o. b.i.d. . 5. Start Risperdal 0.5 mg p.o. q.h.s. I spent ___20___ minutes with the patient and/or on the patient floor today, greater than?50% of which was spent counseling/coordinating care. Reason for contiued inpatient stay Substantial Risk for: inability to function, rapid decompensation and med/psych decompensation
--- NOTE | 2021-10-04 13:34 | MHC.CLN ---
F/U VISITED PATIENT AT LUNCH. REPEATING I CAN'T EAT THIS WHILE EATING LUNCH. STAFF REPORTS THAT IS USUAL BEHAVIOR AT MEALS AND EATS VERY WELL. PATIENT DID NOT HAVE ENSURE AT LUNCH. REPORTS THAT CAN'T TOLERATE ENSURE SO SUPPLEMENT DISCONTINUED. REGULAR DIET-APPROPRIATE. FOLLOW WEIGHTS AND MEAL INTAKE.
[2021-10-04 18:00] VITALS: BP 138/79; PULSE 72; RESP 16; TEMP 36.6; O2SAT 97
[2021-10-04] MEDS: DULoxetine HCl 30 MG CAPSULE.DR PO (20:28)
[2021-10-04] MEDS: Atorvastatin Calcium 40 MG TABLET PO (20:28)
[2021-10-04] MEDS: risperiDONE 0.5 MG TABLET PO (20:29)
[2021-10-05] MEDS: clonazePAM 0.5 MG TABLET 0.25 MG PO ×2 (10:50→20:10)
[2021-10-05] MEDS: Calcium + Vitamin D 250 MG TABLET PO (10:51)
[2021-10-05] MEDS: DULoxetine HCl 30 MG CAPSULE.DR PO ×2 (10:51→20:10)
[2021-10-05] MEDS: Mirtazapine 15 MG TABLET PO (10:52)
[2021-10-05] MEDS: Apixaban 2.5 MG TABLET PO ×2 (10:52→20:10)
--- NOTE | 2021-10-05 13:21 | P.PNPSI_ITS ---
Subjective Subjective Date of Service: 10/05/21 Reason For Visit: Delirium Subjective Notes: Conditional Voluntary Interim History: The nursing staff reported the patient repeats all the time that she can not do ADL is persistently but eventually she does it. We had a family meeting yesterday and we explained the goal of treating depression 1st and then cognitio n. She shook poor appetite yesterday and she had been incontinent. We will order a new UA. On interview the patient denies new symptoms she looks very dysphoric. We will order a new UA. Mental Status Exam Mental Status Exam Patient Appearance: Appropriate Patient Orientation: Person and Situation Level of Consciousness: Awake Patient Behavior: Guarded and Passive Mood Description: Withdrawn Affect Description: Labile Patient Cognition Impaired: Yes Ability to Follow Directions: Fair Speech Pattern: Clear Hallucinations: None Delusions: Not Present Thought Process: Illogical and Distracted Thought Content: positive for [place] Judgement: Poor Diagnostics Vital Signs (24Hr): Vital Signs - 24 hr 10/04/21 18:00 Temperature 97.8 F Pulse Rate 72 Respiratory Rate 16 Blood Pressure 138/79 Pulse Oximetry 97 Oxygen Delivery Method Room Air BMI result Body Mass Index 16.5 Labs Results: 09/27/21 10:36 09/28/21 07:53 Imaging Radiology Impressions: ITS Impressions Head CT 10/03/21 11:57 IMPRESSION: There are scattered chronic small vessel ischemic changes primarily involving the periventricular white matter, basal ganglia, and thalami. Grossly no evidence of acute territorial infarct or hemorrhage. Medications Medications Current Medications Acetaminophen (Acetaminophen 325 Mg Tablet) 650 mg PO Q6H PRN PRN Reason: Headache/Pain Mild Scale (1-3) Al Hydroxide/Mg Hydroxide (Magnesium Hydrox/Alum Hydrox 30 Ml Oral.Susp) 30 ml PO Q6H PRN PRN Reason: Heartburn/Nausea Amlodipine Besylate (Amlodipine Besylate 10 Mg Tablet) 10 mg PO DAILY [facility]; Protocol Last Admin: 10/05/21 11:26 Dose: Not Given Apixaban (Apixaban 2.5 Mg Tablet) 2.5 mg PO BID [facility] Last Admin: 10/05/21 10:52 Dose: 2.5 mg Atorvastatin Calcium (Atorvastatin Calcium 40 Mg Tablet) 40 mg PO BEDTIME [facility] Last Admin: 10/04/21 20:28 Dose: 40 mg Calcitonin [place] (Calcitonin,[place],Synth Nasal 3.7 Ml Bottle) 1 spray NOSTRILALT DAILY [facility] Last Admin: 10/05/21 11:27 Dose: Not Given Calcium Carbonate/Cholecalciferol (Calcium + Vitamin D 250 Mg Tablet) 250 mg PO DAILY [facility] Last Admin: 10/05/21 10:51 Dose: 250 mg Clonazepam (Clonazepam 0.5 Mg Tablet) 0.25 mg PO BID [facility] Last Admin: 10/05/21 10:50 Dose: 0.25 mg Digoxin (Digoxin 0.125 Mg Tablet) 0.125 mg PO TUWETHFR [facility] Last Admin: 10/05/21 11:27 Dose: Not Given Duloxetine HCl (Duloxetine Hcl 30 Mg Capsule.Dr) 30 mg PO BID [facility] Last Admin: 10/05/21 10:51 Dose: 30 mg Hydroxyzine HCl (Hydroxyzine Hcl 25 Mg Tablet) 25 mg PO Q6H PRN PRN Reason: Anxiety Last Admin: 09/29/21 03:25 Dose: 25 mg Magnesium Hydroxide (Milk Of Magnesia 30 Ml Oral.Susp) 30 ml PO DAILY PRN PRN Reason: Constipation Metoprolol Tartrate (Metoprolol Tartrate 100 Mg Tablet) 100 mg PO BID [facility]; Protocol Last Admin: 10/05/21 11:26 Dose: Not Given Mirtazapine (Mirtazapine 15 Mg Tablet) 15 mg PO DAILY [facility] Last Admin: 10/05/21 10:52 Dose: 15 mg Risperidone (Risperidone 0.5 Mg Tablet) 0.5 mg PO BEDTIME [facility] Last Admin: 10/04/21 20:29 Dose: 0.5 mg Trazodone HCl (Trazodone Hcl 50 Mg Tablet) 50 mg PO BEDTIME PRN PRN Reason: Insomnia Allergies Allergies Allergy/AdvReac Type Severity Reaction Status Date / Time morphine AdvReac Severe Alternate Verified 09/27/21 10:25 mental status Assessment & Plan Assessment & Plan (1) Delusion: Status: Acute Code(s): 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 She recently have several losses such as the suicide of her daughter who was the robbin júnior caregiver. At this moment the patient has a UTI, failure to thrive weight loss and inability to take care of herself. Plan 1. Gather collateral information. 2. Continue Remeron. 3. Continue medical workup 4. Increased Cymbalta to 30 mg p.o. b.i.d. . 5. Start Risperdal 0.5 mg p.o. q.h.s. 6. UA to rule out UTI I spent ____20__ minutes with the patient and/or on the patient floor today, greater than?50% of which was spent counseling/coordinating care. Reason for contiued inpatient stay Substantial Risk for: inability to function, rapid decompensation and med/psych decompensation
[2021-10-05 14:24] LABS: Appearance Urine CLEAR; Color Urine YELLOW; Glucose Urine UA NEG (NEG); Leukocyte Esterase Urine 1+ (NEG); Nitrite Urine NEG (NEG); UACC Culture Trigger YES; Urine Blood NEG (NEG); Urine Ketones NEG (NEG); Urine Protein NEG (NEG-TRACE)
[2021-10-05 14:40] LABS: Squamous Epithelial Cell Urine 1+ /LPF
[2021-10-05 14:41] LABS: Hyaline Casts Urine 0-2 /LPF; UACC CULT YES; WBC Urine 0-2 /HPF (0-4)
[2021-10-05 14:42] LABS: RBC Urine 0 /HPF (0)
[2021-10-05 19:30] VITALS: BP 107/71; PULSE 96; TEMP 36.6
[2021-10-05] MEDS: Metoprolol Tartrate 100 MG TABLET PO (20:10)
[2021-10-05] MEDS: Atorvastatin Calcium 40 MG TABLET PO (20:10)
[2021-10-05] MEDS: risperiDONE 0.5 MG TABLET PO (20:11)
[2021-10-06 08:15] VITALS: BP 110/63; PULSE 80; RESP 16; TEMP 36.4; O2SAT 96
[2021-10-06] MEDS: Apixaban 2.5 MG TABLET PO ×2 (08:18→19:56)
[2021-10-06] MEDS: amLODIPine Besylate 10 MG TABLET PO (08:18)
[2021-10-06] MEDS: Metoprolol Tartrate 100 MG TABLET PO ×2 (08:19→19:56)
[2021-10-06] MEDS: clonazePAM 0.5 MG TABLET 0.25 MG PO ×2 (08:19→19:56)
[2021-10-06] MEDS: Calcium + Vitamin D 250 MG TABLET PO (08:19)
[2021-10-06] MEDS: DULoxetine HCl 30 MG CAPSULE.DR PO ×2 (08:20→19:56)
[2021-10-06] MEDS: Mirtazapine 15 MG TABLET PO (08:20)
[2021-10-06] MEDS: Digoxin 0.125 MG TABLET PO (08:24)
[2021-10-06] MEDS: Calcitonin,Salmon,Synth Nasal 3.7 ML BOTTLE 1 SPRAY NOSTRILALT (08:25)
--- NOTE | 2021-10-06 09:10 | HO.PSYCHPN ---
Subjective Subjective Date of Service: 10/06/21 Reason For Visit: dementia Subjective Notes: Conditional Voluntary Interim History: The nursing staff reported that the patient has been fully compliant with treatment plan She reported that she cannot do activities but eventually she does not with encouragement. On interview the patient reports that she is feeling anxious but able to cope. She looks pleasantly confused at times Diagnostics Vital Signs (24Hr): Vital Signs - 24 hr 10/05/21 19:30 Temperature 97.8 F Pulse Rate 96 Blood Pressure 107/71 BMI result Body Mass Index 16.5 Labs Results: 09/27/21 10:36 09/28/21 07:53 Labs: Laboratory Results - last 48 hr 10/05/21 13:45 Urine Color YELLOW Urine Appearance CLEAR Urine pH 6.0 Ur Specific [place] 1.020 Urine Protein NEG Urine Glucose (UA) NEG Urine Ketones NEG Urine Blood NEG Urine Nitrite NEG Ur Leukocyte Esterase 1+ H Urine RBC 0 Urine WBC 0-2 Ur Squamous Epith Cells 1+ Urine Bacteria NONE Hyaline Casts 0-2 Imaging Radiology Impressions: ITS Impressions Head CT 10/03/21 11:57 IMPRESSION: There are scattered chronic small vessel ischemic changes primarily involving the periventricular white matter, basal ganglia, and thalami. Grossly no evidence of acute territorial infarct or hemorrhage. Medications Medications Current Medications Acetaminophen (Acetaminophen 325 Mg Tablet) 650 mg PO Q6H PRN PRN Reason: Headache/Pain Mild Scale (1-3) Al Hydroxide/Mg Hydroxide (Magnesium Hydrox/Alum Hydrox 30 Ml Oral.Susp) 30 ml PO Q6H PRN PRN Reason: Heartburn/Nausea Amlodipine Besylate (Amlodipine Besylate 10 Mg Tablet) 10 mg PO DAILY [facility]; Protocol Last Admin: 10/06/21 08:18 Dose: 10 mg Apixaban (Apixaban 2.5 Mg Tablet) 2.5 mg PO BID [facility] Last Admin: 10/06/21 08:18 Dose: 2.5 mg Atorvastatin Calcium (Atorvastatin Calcium 40 Mg Tablet) 40 mg PO BEDTIME [facility] Last Admin: 10/05/21 20:10 Dose: 40 mg Calcitonin [place] (Calcitonin,[place],Synth Nasal 3.7 Ml Bottle) 1 spray NOSTRILALT DAILY [facility] Last Admin: 10/06/21 08:25 Dose: 1 spray Calcium Carbonate/Cholecalciferol (Calcium + Vitamin D 250 Mg Tablet) 250 mg PO DAILY [facility] Last Admin: 10/06/21 08:19 Dose: 250 mg Clonazepam (Clonazepam 0.5 Mg Tablet) 0.25 mg PO BID [facility] Last Admin: 10/06/21 08:19 Dose: 0.25 mg Digoxin (Digoxin 0.125 Mg Tablet) 0.125 mg PO TUWETH [facility] Last Admin: 10/06/21 08:24 Dose: 0.125 mg Duloxetine HCl (Duloxetine Hcl 30 Mg Capsule.Dr) 30 mg PO BID [facility] Last Admin: 10/06/21 08:20 Dose: 30 mg Hydroxyzine HCl (Hydroxyzine Hcl 25 Mg Tablet) 25 mg PO Q6H PRN PRN Reason: Anxiety Last Admin: 09/29/21 03:25 Dose: 25 mg Magnesium Hydroxide (Milk Of Magnesia 30 Ml Oral.Susp) 30 ml PO DAILY PRN PRN Reason: Constipation Metoprolol Tartrate (Metoprolol Tartrate 100 Mg Tablet) 100 mg PO BID [facility]; Protocol Last Admin: 10/06/21 08:19 Dose: 100 mg Mirtazapine (Mirtazapine 15 Mg Tablet) 15 mg PO DAILY [facility] Last Admin: 10/06/21 08:20 Dose: 15 mg Risperidone (Risperidone 0.5 Mg Tablet) 0.5 mg PO BEDTIME [facility] Last Admin: 10/05/21 20:11 Dose: 0.5 mg Trazodone HCl (Trazodone Hcl 50 Mg Tablet) 50 mg PO BEDTIME PRN PRN Reason: Insomnia Allergies Allergies Allergy/AdvReac Type Severity Reaction Status Date / Time morphine AdvReac Severe Alternate Verified 09/27/21 10:25 mental status Assessment & Plan Assessment & Plan (1) Delusion: Status: Acute Code(s): 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 She recently have several losses such as the suicide of her daughter who was the primary caregiver. At this moment the patient has a UTI, failure to thrive weight loss and inability to take care of herself. Plan 1. Gather collateral information. 2. Continue Remeron. 3. Continue medical workup 4. Increased Cymbalta to 30 mg p.o. b.i.d. . 5. Start Risperdal 0.5 mg p.o. q.h.s. 6. UA to rule out UTI I spent minutes with the patient and/or on the patient floor today, greater than?50% of which was spent counseling/coordinating care.
--- NOTE | 2021-10-06 13:47 | MHC.CLN ---
F/U VISITED PATIENT AT LUNCH. ATE 100% OF GRILLED CHEESE SANDWICH AND ICE CREAM. REGULAR DIET-APPROPRIATE. SUPPLEMENT DISCONTINUED PER CONVERSATION WITH PATIENT. FOLLOW WEIGHTS AND MEAL INTAKE. RD TO FOLLOW WEEKLY.
--- NOTE | 2021-10-06 17:30 | HO.PSYCHPN ---
Subjective Subjective Date of Service: 10/06/21 Reason For Visit: Delirium Subjective Notes: [place] Warning Interim History: I saw pt and spoke with team. Per RN, she has had no issues with incontinence today, toileting Q2H. Has been eating and drinking well, although pt will deny this. I evaluated the pt this evening and she states I dont feel up to par, not right now. Continues to state she has difficulty swallowing, nothing goes down me, and that she has a hard time taking the pills. Says sleep is pretty good i guess. Pt makes paranoid/ fearful statements i.e. they'll be after me, they'll come after me and says she has the shakes, although no tremor observed. No med changes made today. Ordered new UA with reflex. Medication Compliance: Yes Side effects from medications: No Attending Groups: Intermittent Mental Status Exam Mental Status Exam Narrative: Patient Appearance: Appropriate Patient Orientation: Person and Situation Level of Consciousness: Awake Patient Behavior: Guarded and Passive Mood Description: Withdrawn Affect Description: Labile Patient Cognition Impaired: Yes Ability to Follow Directions: Fair Speech Pattern: Clear Hallucinations: None Delusions: Not Present Thought Process: Illogical and Distracted Thought Content: positive for [place] Judgement: Poor Diagnostics Vital Signs (24Hr): Vital Signs - 24 hr 10/05/21 19:30 10/06/21 08:15 Temperature 97.8 F 97.6 F Pulse Rate 96 80 Respiratory Rate 16 Blood Pressure 107/71 110/63 Pulse Oximetry 96 Oxygen Delivery Method Room Air BMI result Body Mass Index 16.5 Labs Results: 09/27/21 10:36 09/28/21 07:53 Labs: Laboratory Results - last 48 hr 10/05/21 13:45 Urine Color YELLOW Urine Appearance CLEAR Urine pH 6.0 Ur Specific [place] 1.020 Urine Protein NEG Urine Glucose (UA) NEG Urine Ketones NEG Urine Blood NEG Urine Nitrite NEG Ur Leukocyte Esterase 1+ H Urine RBC 0 Urine WBC 0-2 Ur Squamous Epith Cells 1+ Urine Bacteria NONE Hyaline Casts 0-2 Imaging Radiology Impressions: ITS Impressions Head CT 10/03/21 11:57 IMPRESSION: There are scattered chronic small vessel ischemic changes primarily involving the periventricular white matter, basal ganglia, and thalami. Grossly no evidence of acute territorial infarct or hemorrhage. Medications Medications Current Medications Acetaminophen (Acetaminophen 325 Mg Tablet) 650 mg PO Q6H PRN PRN Reason: Headache/Pain Mild Scale (1-3) Al Hydroxide/Mg Hydroxide (Magnesium Hydrox/Alum Hydrox 30 Ml Oral.Susp) 30 ml PO Q6H PRN PRN Reason: Heartburn/Nausea Amlodipine Besylate (Amlodipine Besylate 10 Mg Tablet) 10 mg PO DAILY [facility]; Protocol Last Admin: 10/06/21 08:18 Dose: 10 mg Apixaban (Apixaban 2.5 Mg Tablet) 2.5 mg PO BID [facility] Last Admin: 10/06/21 08:18 Dose: 2.5 mg Atorvastatin Calcium (Atorvastatin Calcium 40 Mg Tablet) 40 mg PO BEDTIME [facility] Last Admin: 10/05/21 20:10 Dose: 40 mg Calcitonin [place] (Calcitonin,[place],Synth Nasal 3.7 Ml Bottle) 1 spray NOSTRILALT DAILY [facility] Last Admin: 10/06/21 08:25 Dose: 1 spray Calcium Carbonate/Cholecalciferol (Calcium + Vitamin D 250 Mg Tablet) 250 mg PO DAILY [facility] Last Admin: 10/06/21 08:19 Dose: 250 mg Clonazepam (Clonazepam 0.5 Mg Tablet) 0.25 mg PO BID [facility] Last Admin: 10/06/21 08:19 Dose: 0.25 mg Digoxin (Digoxin 0.125 Mg Tablet) 0.125 mg PO [facility] Last Admin: 10/06/21 08:24 Dose: 0.125 mg Duloxetine HCl (Duloxetine Hcl 30 Mg Capsule.Dr) 30 mg PO BID [facility] Last Admin: 10/06/21 08:20 Dose: 30 mg Hydroxyzine HCl (Hydroxyzine Hcl 25 Mg Tablet) 25 mg PO Q6H PRN PRN Reason: Anxiety Last Admin: 09/29/21 03:25 Dose: 25 mg Magnesium Hydroxide (Milk Of Magnesia 30 Ml Oral.Susp) 30 ml PO DAILY PRN PRN Reason: Constipation Metoprolol Tartrate (Metoprolol Tartrate 100 Mg Tablet) 100 mg PO BID [facility]; Protocol Last Admin: 10/06/21 08:19 Dose: 100 mg Mirtazapine (Mirtazapine 15 Mg Tablet) 15 mg PO DAILY [facility] Last Admin: 10/06/21 08:20 Dose: 15 mg Risperidone (Risperidone 0.5 Mg Tablet) 0.5 mg PO BEDTIME [facility] Last Admin: 10/05/21 20:11 Dose: 0.5 mg Trazodone HCl (Trazodone Hcl 50 Mg Tablet) 50 mg PO BEDTIME PRN PRN Reason: Insomnia Allergies Allergies Allergy/AdvReac Type Severity Reaction Status Date / Time morphine AdvReac Severe Alternate Verified 09/27/21 10:25 mental status Assessment & Plan Assessment & Plan (1) Delusion: Status: Acute Code(s): 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 She recently have several losses such as the suicide of her daughter who was the primary caregiver. At this moment the patient has a UTI, failure to thrive weight loss and inability to take care of herself. Plan 1. Gather collateral information. 2. Continue Remeron. 3. Continue medical workup 4. Increased Cymbalta to 30 mg p.o. b.i.d. . 5. Start Risperdal 0.5 mg p.o. q.h.s. 6. UA to rule out UTI I spent minutes with the patient and/or on the patient floor today, greater than?50% of which was spent counseling/coordinating care. Reason for contiued inpatient stay Substantial Risk for: inability to function, rapid decompensation and med/psych decompensation
[2021-10-06 18:00] VITALS: BP 131/61; PULSE 80; RESP 18; TEMP 36.8; O2SAT 97
[2021-10-06] MEDS: Atorvastatin Calcium 40 MG TABLET PO (19:57)
[2021-10-06] MEDS: risperiDONE 0.5 MG TABLET PO (19:59)
[2021-10-07 06:00] VITALS: BP 120/74; PULSE 78; RESP 16; TEMP 36.1; O2SAT 96
[2021-10-07] MEDS: Calcium + Vitamin D 250 MG TABLET PO (08:12)
[2021-10-07] MEDS: Mirtazapine 15 MG TABLET PO (08:12)
[2021-10-07] MEDS: amLODIPine Besylate 10 MG TABLET PO (08:12)
[2021-10-07] MEDS: Apixaban 2.5 MG TABLET PO ×2 (08:12→19:50)
[2021-10-07] MEDS: clonazePAM 0.5 MG TABLET 0.25 MG PO ×2 (08:12→19:50)
[2021-10-07] MEDS: DULoxetine HCl 30 MG CAPSULE.DR PO ×2 (08:14→19:52)
[2021-10-07] MEDS: Calcitonin,Salmon,Synth Nasal 3.7 ML BOTTLE 1 SPRAY NOSTRILALT (08:14)
[2021-10-07] MEDS: Metoprolol Tartrate 100 MG TABLET PO ×2 (08:14→19:52)
--- NOTE | 2021-10-07 13:55 | HO.PSYCHPN ---
Subjective Subjective Date of Service: 10/07/21 Reason For Visit: dementia Subjective Notes: Conditional Voluntary Interim History: cognitive impairment consistent with dementia. Continues to state that she cannot eat or swallow, despite clear evidence of being able to eat without assistance. Fearful that she does not have a room in the hospital. Reassurance provided. Fearful that she will be here for ever. No overt psychosis. Is fearful and anxious though. No SI. Sleep okay. Medication Compliance: Yes Side effects from medications: No Attending Groups: No Review of Systems Acute medical concerns: No Review of Systems Review of Systems Yes Unobtainable due to mental status Mental Status Exam Mental Status Exam Narrative: Pleasant. Engaged. Clear cognitive impairment consistent with dementia. breakfast tray with items of food that have been eaten. Anxious and tearful. No SI. No agitation. No clear psychosis. Insight and judgment limited Diagnostics Vital Signs (24Hr): Vital Signs - 24 hr 10/06/21 18:00 10/07/21 06:00 Temperature 98.2 F 96.9 F Pulse Rate 80 78 Respiratory Rate 18 16 Blood Pressure 131/61 120/74 Pulse Oximetry 97 96 Oxygen Delivery Method Room Air Room Air BMI result Body Mass Index 16.5 Labs Results: 09/27/21 10:36 09/28/21 07:53 Labs: Laboratory Results - last 48 hr 10/05/21 13:45 Urine Color YELLOW Urine Appearance CLEAR Urine pH 6.0 Ur Specific [place] 1.020 Urine Protein NEG Urine Glucose (UA) NEG Urine Ketones NEG Urine Blood NEG Urine Nitrite NEG Ur Leukocyte Esterase 1+ H Urine RBC 0 Urine WBC 0-2 Ur Squamous Epith Cells 1+ Urine Bacteria NONE Hyaline Casts 0-2 Imaging Radiology Impressions: ITS Impressions Head CT 10/03/21 11:57 IMPRESSION: There are scattered chronic small vessel ischemic changes primarily involving the periventricular white matter, basal ganglia, and thalami. Grossly no evidence of acute territorial infarct or hemorrhage. Medications Medications Current Medications Acetaminophen (Acetaminophen 325 Mg Tablet) 650 mg PO Q6H PRN PRN Reason: Headache/Pain Mild Scale (1-3) Al Hydroxide/Mg Hydroxide (Magnesium Hydrox/Alum Hydrox 30 Ml Oral.Susp) 30 ml PO Q6H PRN PRN Reason: Heartburn/Nausea Amlodipine Besylate (Amlodipine Besylate 10 Mg Tablet) 10 mg PO DAILY [facility]; Protocol Last Admin: 10/07/21 08:12 Dose: 10 mg Apixaban (Apixaban 2.5 Mg Tablet) 2.5 mg PO BID [facility] Last Admin: 10/07/21 08:12 Dose: 2.5 mg Atorvastatin Calcium (Atorvastatin Calcium 40 Mg Tablet) 40 mg PO BEDTIME [facility] Last Admin: 10/06/21 19:57 Dose: 40 mg Calcitonin [place] (Calcitonin,[place],Synth Nasal 3.7 Ml Bottle) 1 spray NOSTRILALT DAILY [facility] Last Admin: 10/07/21 08:14 Dose: 1 spray Calcium Carbonate/Cholecalciferol (Calcium + Vitamin D 250 Mg Tablet) 250 mg PO DAILY [facility] Last Admin: 10/07/21 08:12 Dose: 250 mg Clonazepam (Clonazepam 0.5 Mg Tablet) 0.25 mg PO BID [facility] Last Admin: 10/07/21 08:12 Dose: 0.25 mg Digoxin (Digoxin 0.125 Mg Tablet) 0.125 mg PO TUWETHFR [facility] Last Admin: 10/06/21 08:24 Dose: 0.125 mg Duloxetine HCl (Duloxetine Hcl 30 Mg Capsule.Dr) 30 mg PO BID [facility] Last Admin: 10/07/21 08:14 Dose: 30 mg Hydroxyzine HCl (Hydroxyzine Hcl 25 Mg Tablet) 25 mg PO Q6H PRN PRN Reason: Anxiety Last Admin: 09/29/21 03:25 Dose: 25 mg Magnesium Hydroxide (Milk Of Magnesia 30 Ml Oral.Susp) 30 ml PO DAILY PRN PRN Reason: Constipation Metoprolol Tartrate (Metoprolol Tartrate 100 Mg Tablet) 100 mg PO BID [facility]; Protocol Last Admin: 10/07/21 08:14 Dose: 100 mg Mirtazapine (Mirtazapine 15 Mg Tablet) 15 mg PO DAILY [facility] Last Admin: 10/07/21 08:12 Dose: 15 mg Risperidone (Risperidone 0.5 Mg Tablet) 0.5 mg PO BEDTIME [facility] Last Admin: 10/06/21 19:59 Dose: 0.5 mg Trazodone HCl (Trazodone Hcl 50 Mg Tablet) 50 mg PO BEDTIME PRN PRN Reason: Insomnia Allergies Allergies Allergy/AdvReac Type Severity Reaction Status Date / Time morphine AdvReac Severe Alternate Verified 09/27/21 10:25 mental status Assessment & Plan Assessment & Plan (1) Delusion: Status: Acute Code(s): 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 She recently have several losses such as the suicide of her daughter who was the primary caregiver. At this moment the patient has a UTI, failure to thrive weight loss and inability to take care of herself. Plan 1. Gather collateral information. 2. Continue Remeron. 3. Continue medical workup 4. Increased Cymbalta to 30 mg p.o. b.i.d. . 5. Start Risperdal 0.5 mg p.o. q.h.s. 6. UA to rule out UTI 10/07/2021: No changes to current treatment plan. UA pending I spent minutes with the patient and/or on the patient floor today, greater than?50% of which was spent counseling/coordinating care. Reason for contiued inpatient stay Substantial Risk for: inability to function
[2021-10-07 16:34] LABS: Appearance Urine HAZY; Color Urine YELLOW; Glucose Urine UA 100 MG/DL (NEG); Leukocyte Esterase Urine 1+ (NEG); Nitrite Urine NEG (NEG); PH 5.5 (5.0-8.0); Specific Gravity - Urine 1.025 (1.005-1.025); Urine Blood NEG (NEG); Urine Ketones NEG (NEG); Urine Protein NEG (NEG-TRACE)
[2021-10-07 16:51] LABS: Bacteria Urine 1+ /LPF; Squamous Epithelial Cell Urine 1+ /LPF
[2021-10-07 16:52] LABS: Calcium Oxalate Crystals Urine 1+ /LPF; Mucus Urine 1+ /LPF; Renal Epithelial Cells Urine TRACE /LPF
[2021-10-07 18:00] VITALS: BP 141/72; PULSE 71; RESP 15; TEMP 36.4; O2SAT 96
[2021-10-07] MEDS: Atorvastatin Calcium 40 MG TABLET PO (19:52)
[2021-10-07] MEDS: risperiDONE 0.5 MG TABLET PO (19:52)
[2021-10-08 06:00] VITALS: BP 103/63; PULSE 84; RESP 16; TEMP 36.2; O2SAT 96
[2021-10-08] MEDS: Metoprolol Tartrate 100 MG TABLET PO ×2 (08:04→19:56)
[2021-10-08] MEDS: DULoxetine HCl 30 MG CAPSULE.DR PO ×2 (08:04→19:56)
[2021-10-08] MEDS: amLODIPine Besylate 10 MG TABLET PO (08:04)
[2021-10-08] MEDS: clonazePAM 0.5 MG TABLET 0.25 MG PO ×2 (08:05→19:57)
[2021-10-08] MEDS: Apixaban 2.5 MG TABLET PO ×2 (08:05→19:57)
[2021-10-08] MEDS: Calcium + Vitamin D 250 MG TABLET PO (08:05)
[2021-10-08] MEDS: Mirtazapine 15 MG TABLET PO (08:05)
[2021-10-08] MEDS: Calcitonin,Salmon,Synth Nasal 3.7 ML BOTTLE 1 SPRAY NOSTRILALT (08:11)
--- NOTE | 2021-10-08 10:04 | P.PNPSI_ITS ---
Subjective Subjective Date of Service: 10/08/21 Reason For Visit: dementia Subjective Notes: Conditional Voluntary Interim History: belives her room has been taken from here I'm trouble . Reassurance provided. Fearful that she will be here for ever. No overt psychosis. Is fearful and anxious though. No SI. Sleep okay. Medication Compliance: Yes Side effects from medications: No Attending Groups: Yes Review of Systems UA positive Review of Systems Review of Systems Yes Unobtainable due to mental status Mental Status Exam Mental Status Exam Narrative: Pleasant. Engaged. Clear cognitive impairment consistent with dementia. Watchinhg TV. Anxious and tearful. No SI. No agitation. No clear psychosis. Insight and judgment limited Diagnostics Vital Signs (24Hr): Vital Signs - 24 hr 10/07/21 18:00 10/08/21 06:00 Temperature 97.5 F 97.2 F Pulse Rate 71 84 Respiratory Rate 15 16 Blood Pressure 141/72 H 103/63 Pulse Oximetry 96 96 Oxygen Delivery Method Room Air Room Air BMI result Body Mass Index 16.5 Labs Results: 09/27/21 10:36 09/28/21 07:53 Labs: Laboratory Results - last 48 hr 10/07/21 16:15 Urine Color YELLOW Urine Appearance HAZY Urine pH 5.5 Ur Specific [place] 1.025 Urine Protein NEG Urine Glucose (UA) 100 H Urine Ketones NEG Urine Blood NEG Urine Nitrite NEG Ur Leukocyte Esterase 1+ H Urine RBC 1-4 Urine WBC 10-14 H Ur Squamous Epith Cells 1+ Ur Renal Epithelial Cell TRACE Calcium Oxalate Crystal 1+ Urine Bacteria 1+ Hyaline Casts 5-9 Urine Mucus 1+ Imaging Radiology Impressions: ITS Impressions Head CT 10/03/21 11:57 IMPRESSION: There are scattered chronic small vessel ischemic changes primarily involving the periventricular white matter, basal ganglia, and thalami. Grossly no evidence of acute territorial infarct or hemorrhage. Medications Medications Current Medications Acetaminophen (Acetaminophen 325 Mg Tablet) 650 mg PO Q6H PRN PRN Reason: Headache/Pain Mild Scale (1-3) Al Hydroxide/Mg Hydroxide (Magnesium Hydrox/Alum Hydrox 30 Ml Oral.Susp) 30 ml PO Q6H PRN PRN Reason: Heartburn/Nausea Amlodipine Besylate (Amlodipine Besylate 10 Mg Tablet) 10 mg PO DAILY [facility]; Pr otocol Last Admin: 10/08/21 08:04 Dose: 10 mg Apixaban (Apixaban 2.5 Mg Tablet) 2.5 mg PO BID [facility] Last Admin: 10/08/21 08:05 Dose: 2.5 mg Atorvastatin Calcium (Atorvastatin Calcium 40 Mg Tablet) 40 mg PO BEDTIME [facility] Last Admin: 10/07/21 19:52 Dose: 40 mg Calcitonin [employer] (Calcitonin,[employer],Synth Nasal 3.7 Ml Bottle) 1 spray NOSTRILALT DAILY [facility] Last Admin: 10/08/21 08:11 Dose: 1 spray Calcium Carbonate/Cholecalciferol (Calcium + Vitamin D 250 Mg Tablet) 250 mg PO DAILY [facility] Last Admin: 10/08/21 08:05 Dose: 250 mg Clonazepam (Clonazepam 0.5 Mg Tablet) 0.25 mg PO BID [facility] Last Admin: 10/08/21 08:05 Dose: 0.25 mg Digoxin (Digoxin 0.125 Mg Tablet) 0.125 mg PO TUWETHFR [facility] Last Admin: 10/06/21 08:24 Dose: 0.125 mg Duloxetine HCl (Duloxetine Hcl 30 Mg Capsule.Dr) 30 mg PO BID [facility] Last Admin: 10/08/21 08:04 Dose: 30 mg Hydroxyzine HCl (Hydroxyzine Hcl 25 Mg Tablet) 25 mg PO Q6H PRN PRN Reason: Anxiety Last Admin: 09/29/21 03:25 Dose: 25 mg Magnesium Hydroxide (Milk Of Magnesia 30 Ml Oral.Susp) 30 ml PO DAILY PRN PRN Reason: Constipation Metoprolol Tartrate (Metoprolol Tartrate 100 Mg Tablet) 100 mg PO BID [facility]; Protocol Last Admin: 10/08/21 08:04 Dose: 100 mg Mirtazapine (Mirtazapine 15 Mg Tablet) 15 mg PO DAILY [facility] Last Admin: 10/08/21 08:05 Dose: 15 mg Risperidone (Risperidone 0.5 Mg Tablet) 0.5 mg PO BEDTIME [facility] Last Admin: 10/07/21 19:52 Dose: 0.5 mg Trazodone HCl (Trazodone Hcl 50 Mg Tablet) 50 mg PO BEDTIME PRN PRN Reason: Insomnia Allergies Allergies Allergy/AdvReac Type Severity Reaction Status Date / Time morphine AdvReac Severe Alternate Verified 09/27/21 10:25 mental status Assessment & Plan Assessment & Plan (1) Delusion: Status: Acute Code(s): 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 She recently have several losses such as the suicide of her daughter who was the p rimary caregiver. At this moment the patient has a UTI, failure to thrive weight loss and inability to take care of herself. Plan 1. Gather collateral information. 2. Continue Remeron. 3. Continue medical workup 4. Increased Cymbalta to 30 mg p.o. b.i.d. . 5. Start Risperdal 0.5 mg p.o. q.h.s. 6. UA to rule out UTI 10/08/2021: No changes to current treatment plan. UA positive- bactrim ordered x 3 days I spent minutes with the patient and/or on the patient floor today, greater than?50% of which was spent counseling/coordinating care. Reason for contiued inpatient stay Substantial Risk for: inability to function
[2021-10-08] MEDS: Sulfamethox/Trimeth 800/160 TABLET 1 TAB PO ×2 (12:13→22:07)
[2021-10-08 18:00] VITALS: BP 117/59; PULSE 73; RESP 16; TEMP 36.2; O2SAT 96
[2021-10-08] MEDS: Atorvastatin Calcium 40 MG TABLET PO (19:57)
[2021-10-08] MEDS: risperiDONE 0.5 MG TABLET PO (19:57)
[2021-10-09 07:30] VITALS: BP 120/64; PULSE 92; RESP 16; TEMP 36.5; O2SAT 96
[2021-10-09] MEDS: DULoxetine HCl 30 MG CAPSULE.DR PO (08:26)
[2021-10-09] MEDS: clonazePAM 0.5 MG TABLET 0.25 MG PO ×2 (08:26→20:32)
[2021-10-09] MEDS: amLODIPine Besylate 10 MG TABLET PO (08:26)
[2021-10-09] MEDS: Mirtazapine 15 MG TABLET PO (08:26)
[2021-10-09] MEDS: Metoprolol Tartrate 100 MG TABLET PO ×2 (08:27→20:26)
[2021-10-09] MEDS: Apixaban 2.5 MG TABLET PO ×2 (08:27→20:26)
[2021-10-09] MEDS: Calcium + Vitamin D 250 MG TABLET PO (08:28)
[2021-10-09] MEDS: Calcitonin,Salmon,Synth Nasal 3.7 ML BOTTLE 1 SPRAY NOSTRILALT (08:56)
[2021-10-09] MEDS: Sulfamethox/Trimeth 800/160 TABLET 1 TAB PO ×2 (10:25→20:16)
--- NOTE | 2021-10-09 15:07 | HO.PSYCHPN ---
Subjective Subjective Date of Service: 10/09/21 Reason For Visit: dementia Subjective Notes: Conditional Voluntary Interim History: The nursing staff reported the patient has been cooperative and pleasant, currently now with antibiotics due to UTI. Her mood remains still depressed she feels that she cannot do things but eventually she is able to do it. We had a speech and swallow to look at her and he was okay. On interview the patient reports that she is slightly impaired, no new symptoms. Mental Status Exam Mental Status Exam Patient Appearance: Well Grooomed Patient Orientation: Situation Level of Consciousness: Awake Patient Behavior: Cooperative Mood Description: Withdrawn Affect Description: Constricted Patient Cognition Impaired: Yes Ability to Follow Directions: Good Speech Pattern: Clear Hallucinations: None Delusions: Not Present Thought Process: Linear Thought Content: positive for Circumstantial Judgement: Fair Diagnostics Vital Signs (24Hr): Vital Signs - 24 hr 10/08/21 18:00 10/09/21 07:30 Temperature 97.1 F 97.7 F Pulse Rate 73 92 Respiratory Rate 16 16 Blood Pressure 117/59 L 120/64 Pulse Oximetry 96 96 Oxygen Delivery Method Room Air Room Air BMI result Body Mass Index 16.5 Labs Results: 09/27/21 10:36 09/28/21 07:53 Labs: Laboratory Results - last 48 hr 10/07/21 16:15 Urine Color YELLOW Urine Appearance HAZY Urine pH 5.5 Ur Specific [place] 1.025 Urine Protein NEG Urine Glucose (UA) 100 H Urine Ketones NEG Urine Blood NEG Urine Nitrite NEG Ur Leukocyte Esterase 1+ H Urine RBC 1-4 Urine WBC 10-14 H Ur Squamous Epith Cells 1+ Ur Renal Epithelial Cell TRACE Calcium Oxalate Crystal 1+ Urine Bacteria 1+ Hyaline Casts 5-9 Urine Mucus 1+ Imaging Radiology Impressions: ITS Impressions Head CT 10/03/21 11:57 IMPRESSION: There are scattered chronic small vessel ischemic changes primarily involving the periventricular white matter, basal ganglia, and thalami. Grossly no evidence of acute territorial infarct or hemorrhage. Medications Medications Current Medications Acetaminophen (Acetaminophen 325 Mg Tablet) 650 mg PO Q6H PRN PRN Reason: Headache/Pain Mild Scale (1-3) Al Hydroxide/Mg Hydroxide (Magnesium Hydrox/Alum Hydrox 30 Ml Oral.Susp) 30 ml PO Q6H PRN PRN Reason: Heartburn/Nausea Amlodipine Besylate (Amlodipine Besylate 10 Mg Tablet) 10 mg PO DAILY [facility]; Protocol Last Admin: 10/09/21 08:26 Dose: 10 mg Apixaban (Apixaban 2.5 Mg Tablet) 2.5 mg PO BID [facility] Last Admin: 10/09/21 08:27 Dose: 2.5 mg Atorvastatin Calcium (Atorvastatin Calcium 40 Mg Tablet) 40 mg PO BEDTIME [facility] Last Admin: 10/08/21 19:57 Dose: 40 mg Calcitonin [place] (Calcitonin,[place],Synth Nasal 3.7 Ml Bottle) 1 spray NOSTRILALT DAILY [facility] Last Admin: 10/09/21 08:56 Dose: 1 spray Calcium Carbonate/Cholecalciferol (Calcium + Vitamin D 250 Mg Tablet) 250 mg PO DAILY [facility] Last Admin: 10/09/21 08:28 Dose: 250 mg Clonazepam (Clonazepam 0.5 Mg Tablet) 0.25 mg PO BID [facility] Last Admin: 10/09/21 08:26 Dose: 0.25 mg Digoxin (Digoxin 0.125 Mg Tablet) 0.125 mg PO TUWETH [facility] Last Admin: 10/06/21 08:24 Dose: 0.125 mg Duloxetine HCl (Duloxetine Hcl 60 Mg Capsule.Dr) 60 mg PO BEDTIME [facility] Hydroxyzine HCl (Hydroxyzine Hcl 25 Mg Tablet) 25 mg PO Q6H PRN PRN Reason: Anxiety Last Admin: 09/29/21 03:25 Dose: 25 mg Magnesium Hydroxide (Milk Of Magnesia 30 Ml Oral.Susp) 30 ml PO DAILY PRN PRN Reason: Constipation Metoprolol Tartrate (Metoprolol Tartrate 100 Mg Tablet) 100 mg PO BID [facility]; Protocol Last Admin: 10/09/21 08:27 Dose: 100 mg Mirtazapine (Mirtazapine 15 Mg Tablet) 15 mg PO DAILY [facility] Last Admin: 10/09/21 08:26 Dose: 15 mg Risperidone (Risperidone 0.5 Mg Tablet) 0.5 mg PO BEDTIME [facility] Last Admin: 10/08/21 19:57 Dose: 0.5 mg Trazodone HCl (Trazodone Hcl 50 Mg Tablet) 50 mg PO BEDTIME PRN PRN Reason: Insomnia Trimethoprim/Sulfamethoxazole (Sulfamethox/Trimeth 800/160 Tablet) 1 tab PO Q12H [facility] Stop: 10/11/21 09:59 Last Admin: 10/09/21 10:25 Dose: 1 tab Allergies Allergies Allergy/AdvReac Type Severity Reaction Status Date / Time morphine AdvReac Severe Alternate Verified 09/27/21 10:25 mental status Assessment & Plan Assessment & Plan (1) Delusion: Status: Acute Code(s): 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 She recently have several losses such as the suicide of her daughter who was the primary caregiver. At this moment the patient has a UTI, failure to thrive weight loss and inability to take care of herself. Plan 1. Gather collateral information. 2. Continue Remeron. 3. Continue medical workup 4. Increased Cymbalta to 30 mg p.o. b.i.d. . 5. Start Risperdal 0.5 mg p.o. q.h.s. 6. Bactrim order for 3 days. I spent ___20___ minutes with the patient and/or on the patient floor today, greater than?50% of which was spent counseling/coordinating care. Reason for contiued inpatient stay Substantial Risk for: inability to function, rapid decompensation and med/psych decompensation
[2021-10-09 18:00] VITALS: BP 141/75; PULSE 75; RESP 16; TEMP 36.4; O2SAT 96
[2021-10-09] MEDS: DULoxetine HCl 60 MG CAPSULE.DR PO (20:15)
[2021-10-09] MEDS: traZODone HCL 50 MG TABLET PO (20:20)
[2021-10-09] MEDS: risperiDONE 0.5 MG TABLET PO (20:22)
[2021-10-09] MEDS: Atorvastatin Calcium 40 MG TABLET PO (20:32)
[2021-10-10 08:00] VITALS: BP 110/70; PULSE 90; RESP 15; TEMP 36; O2SAT 97
[2021-10-10] MEDS: clonazePAM 0.5 MG TABLET 0.25 MG PO ×2 (08:20→19:53)
[2021-10-10] MEDS: Metoprolol Tartrate 100 MG TABLET PO ×2 (08:20→20:12)
[2021-10-10] MEDS: Apixaban 2.5 MG TABLET PO ×2 (08:21→19:54)
[2021-10-10] MEDS: Mirtazapine 15 MG TABLET PO (08:22)
[2021-10-10] MEDS: amLODIPine Besylate 10 MG TABLET PO (08:22)
[2021-10-10] MEDS: Calcium + Vitamin D 250 MG TABLET PO (08:22)
[2021-10-10] MEDS: Calcitonin,Salmon,Synth Nasal 3.7 ML BOTTLE 1 SPRAY NOSTRILALT (08:23)
[2021-10-10 08:25] VITALS: PULSE 88
[2021-10-10] MEDS: Digoxin 0.125 MG TABLET PO (08:26)
[2021-10-10] MEDS: Sulfamethox/Trimeth 800/160 TABLET 1 TAB PO (10:30)
--- NOTE | 2021-10-10 16:07 | HO.PSYCHPN ---
Subjective Subjective Date of Service: 10/10/21 Reason For Visit: dementia Subjective Notes: Conditional Voluntary Interim History: The nursing staff reported that last night she had visual hallucinations and she could not sleep very well. On interview the patient reports that she is not feeling well and she feels dysphoric. No side effects at this moment with current medications Mental Status Exam Mental Status Exam Patient Appearance: Well Grooomed Patient Orientation: Person and Situation Level of Consciousness: Awake Patient Behavior: Cooperative Mood Description: Withdrawn Affect Description: Constricted Patient Cognition Impaired: Yes Ability to Follow Directions: Good Speech Pattern: Clear Memory Description: Intact Hallucinations: Visual Delusions: Paranoid Ideation Judgement: Fair Diagnostics Vital Signs (24Hr): Vital Signs - 24 hr 10/09/21 18:00 10/10/21 08:00 10/10/21 08:25 Temperature 97.6 F 96.8 F Pulse Rate 75 90 88 Respiratory Rate 16 15 Blood Pressure 141/75 H 110/70 Pulse Oximetry 96 97 Oxygen Delivery Method Room Air Room Air BMI result Body Mass Index 16.5 Labs Results: 09/27/21 10:36 09/28/21 07:53 Imaging Radiology Impressions: ITS Impressions Head CT 10/03/21 11:57 IMPRESSION: There are scattered chronic small vessel ischemic changes primarily involving the periventricular white matter, basal ganglia, and thalami. Grossly no evidence of acute territorial infarct or hemorrhage. Medications Medications Current Medications Acetaminophen (Acetaminophen 325 Mg Tablet) 650 mg PO Q6H PRN PRN Reason: Headache/Pain Mild Scale (1-3) Al Hydroxide/Mg Hydroxide (Magnesium Hydrox/Alum Hydrox 30 Ml Oral.Susp) 30 ml PO Q6H PRN PRN Reason: Heartburn/Nausea Amlodipine Besylate (Amlodipine Besylate 10 Mg Tablet) 10 mg PO DAILY [facility]; Protocol Last Admin: 10/10/21 08:22 Dose: 10 mg Apixaban (Apixaban 2.5 Mg Tablet) 2.5 mg PO BID [facility] Last Admin: 10/10/21 08:21 Dose: 2.5 mg Atorvastatin Calcium (Atorvastatin Calcium 40 Mg Tablet) 40 mg PO BEDTIME [facility] Last Admin: 10/09/21 20:32 Dose: 40 mg Calcitonin [place] (Calcitonin,[place],Synth Nasal 3.7 Ml Bottle) 1 spray NOSTRILALT DAILY [facility] Last Admin: 10/10/21 08:23 Dose: 1 spray Calcium Carbonate/Cholecalciferol (Calcium + Vitamin D 250 Mg Tablet) 250 mg PO DAILY [facility] Last Admin: 10/10/21 08:22 Dose: 250 mg Clonazepam (Clonazepam 0.5 Mg Tablet) 0.25 mg PO BID [facility] Last Admin: 10/10/21 08:20 Dose: 0.25 mg Digoxin (Digoxin 0.125 Mg Tablet) 0.125 mg PO WE [facility] Last Admin: 10/10/21 08:26 Dose: 0.125 mg Duloxetine HCl (Duloxetine Hcl 60 Mg Capsule.Dr) 60 mg PO BID [facility] Hydroxyzine HCl (Hydroxyzine Hcl 25 Mg Tablet) 25 mg PO Q6H PRN PRN Reason: Anxiety Last Admin: 09/29/21 03:25 Dose: 25 mg Magnesium Hydroxide (Milk Of Magnesia 30 Ml Oral.Susp) 30 ml PO DAILY PRN PRN Reason: Constipation Metoprolol Tartrate (Metoprolol Tartrate 100 Mg Tablet) 100 mg PO BID [facility]; Protocol Last Admin: 10/10/21 08:20 Dose: 100 mg Mirtazapine (Mirtazapine 15 Mg Tablet) 15 mg PO DAILY [facility] Last Admin: 10/10/21 08:22 Dose: 15 mg Risperidone (Risperidone 0.5 Mg Tablet) 0.5 mg PO BID [facility] Trazodone HCl (Trazodone Hcl 50 Mg Tablet) 50 mg PO BEDTIME PRN PRN Reason: Insomnia Last Admin: 10/09/21 20:20 Dose: 50 mg Trimethoprim/Sulfamethoxazole (Sulfamethox/Trimeth 800/160 Tablet) 1 tab PO Q12H [facility] Stop: 10/11/21 09:59 Last Admin: 10/10/21 10:30 Dose: 1 tab Allergies Allergies Allergy/AdvReac Type Severity Reaction Status Date / Time morphine AdvReac Severe Alternate Verified 09/27/21 10:25 mental status Assessment & Plan Assessment & Plan (1) Delusion: Status: Acute Code(s): 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 She recently have several losses such as the suicide of her daughter who was the primary caregiver. At this moment the patient has a UTI, failure to thrive weight loss and inability to take care of herself. Plan 1. Gather collateral information. 2. Continue Remeron. 3. Continue medical workup 4. Increased Cymbalta to 60 mg p.o. b.i.d. . 5. Increase Risperdal up to 0.5 mg p.o. b.i.d. 6. Bactrim order for 3 days. I spent __20____ minutes with the patient and/or on the patient floor today, greater than?50% of which was spent counseling/coordinating care. Reason for contiued inpatient stay Substantial Risk for: inability to function, rapid decompensation and med/psych decompensation
[2021-10-10 19:42] VITALS: BP 113/66; PULSE 79; RESP 16; TEMP 36.2; O2SAT 95
[2021-10-10] MEDS: risperiDONE 0.5 MG TABLET PO (19:53)
[2021-10-10] MEDS: DULoxetine HCl 60 MG CAPSULE.DR PO (19:54)
[2021-10-10] MEDS: Atorvastatin Calcium 40 MG TABLET PO (20:13)
[2021-10-11 08:09] VITALS: BP 112/79; PULSE 81; RESP 15; TEMP 36.4; O2SAT 94
[2021-10-11] MEDS: Calcitonin,Salmon,Synth Nasal 3.7 ML BOTTLE 1 SPRAY NOSTRILALT (08:24)
[2021-10-11] MEDS: amLODIPine Besylate 10 MG TABLET PO (08:25)
[2021-10-11] MEDS: Metoprolol Tartrate 100 MG TABLET PO ×2 (08:26→19:44)
[2021-10-11] MEDS: Calcium + Vitamin D 250 MG TABLET PO (08:26)
[2021-10-11] MEDS: Mirtazapine 15 MG TABLET PO (08:26)
[2021-10-11] MEDS: risperiDONE 0.5 MG TABLET PO ×2 (08:26→19:45)
[2021-10-11] MEDS: Apixaban 2.5 MG TABLET PO ×2 (08:27→19:45)
[2021-10-11] MEDS: clonazePAM 0.5 MG TABLET 0.25 MG PO (08:27)
[2021-10-11] MEDS: DULoxetine HCl 60 MG CAPSULE.DR PO ×2 (08:28→19:46)
[2021-10-11] MEDS: Digoxin 0.125 MG TABLET PO (08:29)
--- NOTE | 2021-10-11 15:01 | HO.PSYCHPN ---
Subjective Subjective Date of Service: 10/11/21 Reason For Visit: dementia Subjective Notes: Conditional Voluntary Interim History: The nursing staff reported that the patient has been fully compliant with treatment plan She reported that she cannot do activities but eventually she does not with encouragement. On interview the patient reports that she is feeling anxious but able to cope. She looks pleasantly confused at times Mental Status Exam Mental Status Exam Patient Appearance: Well Grooomed Patient Orientation: Person and Situation Level of Consciousness: Awake Patient Behavior: Cooperative Mood Description: Suspicious Patient Cognition Impaired: Yes Ability to Follow Directions: Good Speech Pattern: Clear Hallucinations: None Delusions: Paranoid Ideation Thought Process: Linear Judgement: Fair Diagnostics Vital Signs (24Hr): Vital Signs - 24 hr 10/10/21 19:42 10/11/21 08:09 Temperature 97.2 F 97.6 F Pulse Rate 79 81 Respiratory Rate 16 15 Blood Pressure 113/66 112/79 Pulse Oximetry 95 94 Oxygen Delivery Method Room Air Room Air BMI result Body Mass Index 16.5 Labs Results: 09/27/21 10:36 09/28/21 07:53 Imaging Radiology Impressions: ITS Impressions Head CT 10/03/21 11:57 IMPRESSION: There are scattered chronic small vessel ischemic changes primarily involving the periventricular white matter, basal ganglia, and thalami. Grossly no evidence of acute territorial infarct or hemorrhage. Medications Medications Current Medications Acetaminophen (Acetaminophen 325 Mg Tablet) 650 mg PO Q6H PRN PRN Reason: Headache/Pain Mild Scale (1-3) Al Hydroxide/Mg Hydroxide (Magnesium Hydrox/Alum Hydrox 30 Ml Oral.Susp) 30 ml PO Q6H PRN PRN Reason: Heartburn/Nausea Amlodipine Besylate (Amlodipine Besylate 10 Mg Tablet) 10 mg PO DAILY [facility]; Protocol Last Admin: 10/11/21 08:25 Dose: 10 mg Apixaban (Apixaban 2.5 Mg Tablet) 2.5 mg PO BID [facility] Last Admin: 10/11/21 08:27 Dose: 2.5 mg Atorvastatin Calcium (Atorvastatin Calcium 40 Mg Tablet) 40 mg PO BEDTIME [facility] Last Admin: 10/10/21 20:13 Dose: 40 mg Calcitonin [place] (Calcitonin,[place],Synth Nasal 3.7 Ml Bottle) 1 spray NOSTRILALT DAILY [facility] Last Admin: 10/11/21 08:24 Dose: 1 spray Calcium Carbonate/Cholecalciferol (Calcium + Vitamin D 250 Mg Tablet) 250 mg PO DAILY [facility] Last Admin: 10/11/21 08:26 Dose: 250 mg Clonazepam (Clonazepam 0.5 Mg Tablet) 0.25 mg PO BID [facility] Last Admin: 10/11/21 08:27 Dose: 0.25 mg Digoxin (Digoxin 0.125 Mg Tablet) 0.125 mg PO [facility] Last Admin: 10/11/21 08:29 Dose: 0.125 mg Duloxetine HCl (Duloxetine Hcl 60 Mg Capsule.Dr) 60 mg PO BID [facility] Last Admin: 10/11/21 08:28 Dose: 60 mg Hydroxyzine HCl (Hydroxyzine Hcl 25 Mg Tablet) 25 mg PO Q6H PRN PRN Reason: Anxiety Last Admin: 09/29/21 03:25 Dose: 25 mg Magnesium Hydroxide (Milk Of Magnesia 30 Ml Oral.Susp) 30 ml PO DAILY PRN PRN Reason: Constipation Metoprolol Tartrate (Metoprolol Tartrate 100 Mg Tablet) 100 mg PO BID [facility]; Protocol Last Admin: 10/11/21 08:26 Dose: 100 mg Mirtazapine (Mirtazapine 15 Mg Tablet) 15 mg PO DAILY [facility] Last Admin: 10/11/21 08:26 Dose: 15 mg Risperidone (Risperidone 0.5 Mg Tablet) 0.5 mg PO BID [facility] Last Admin: 10/11/21 08:26 Dose: 0.5 mg Trazodone HCl (Trazodone Hcl 50 Mg Tablet) 50 mg PO BEDTIME PRN PRN Reason: Insomnia Last Admin: 10/09/21 20:20 Dose: 50 mg Allergies Allergies Allergy/AdvReac Type Severity Reaction Status Date / Time morphine AdvReac Severe Alternate Verified 09/27/21 10:25 mental status Assessment & Plan Assessment & Plan (1) Delusion: Status: Acute Code(s): 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 She recently have several losses such as the suicide of her daughter who was the primary caregiver. At this moment the patient has a UTI, failure to thrive weight loss and inability to take care of herself. Plan 1. Gather collateral information. 2. Continue Remeron. 3. Continue medical workup 4. Increased Cymbalta to 60 mg p.o. b.i.d. . 5. Increase Risperdal up to 0.5 mg p.o. b.i.d. 6. Bactrim order for 3 days. I spent __20____ minutes with the patient and/or on the patient floor today, greater than?50% of which was spent counseling/coordinating care. Reason for contiued inpatient stay Substantial Risk for: inability to function, rapid decompensation and med/psych decompensation
[2021-10-11] MEDS: hydrOXYzine HCL 25 MG TABLET PO (17:50)
[2021-10-11 18:00] VITALS: BP 142/75; PULSE 74; RESP 18; TEMP 35.7; O2SAT 96
[2021-10-11] MEDS: Atorvastatin Calcium 40 MG TABLET PO (19:45)
[2021-10-12 06:00] VITALS: BP 130/68; PULSE 90; RESP 16; TEMP 36.9; O2SAT 96
[2021-10-12] MEDS: Calcium + Vitamin D 250 MG TABLET PO (08:29)
[2021-10-12] MEDS: Mirtazapine 15 MG TABLET PO (08:29)
[2021-10-12] MEDS: risperiDONE 0.5 MG TABLET PO ×2 (08:29→21:30)
[2021-10-12] MEDS: Metoprolol Tartrate 100 MG TABLET PO ×2 (08:29→21:30)
[2021-10-12] MEDS: DULoxetine HCl 60 MG CAPSULE.DR PO ×2 (08:30→21:29)
[2021-10-12] MEDS: Apixaban 2.5 MG TABLET PO ×2 (08:30→21:29)
[2021-10-12] MEDS: amLODIPine Besylate 10 MG TABLET PO (08:30)
[2021-10-12] MEDS: Digoxin 0.125 MG TABLET PO (08:59)
[2021-10-12] MEDS: Calcitonin,Salmon,Synth Nasal 3.7 ML BOTTLE 1 SPRAY NOSTRILALT (09:01)
[2021-10-12 09:22] VITALS: BMI 17.0
--- NOTE | 2021-10-12 13:08 | P.PNPSI_ITS ---
Subjective Subjective Date of Service: 10/12/21 Reason For Visit: dementia Subjective Notes: Conditional Voluntary Interim History: The nursing staff reported that last night the patient was confused and she could not find her own room. On interview the patient remains with poor cognition poor short-term memory and dysphoria. We discussed options and she agreed to start Aricept to target dementia. Mental Status Exam Mental Status Exam Patient Appearance: Well Grooomed Patient Orientation: Person and Situation Level of Consciousness: Awake Patient Behavior: Cooperative Mood Description: Withdrawn Affect Description: Depressed Patient Cognition Impaired: Yes Ability to Follow Directions: Good Speech Pattern: Clear Hallucinations: None Delusions: Paranoid Ideation Thought Process: Distracted and Slowed Thinking Thought Content: positive for [place] and positive for [place] Judgement: Fair Diagnostics Vital Signs (24Hr): Vital Signs - 24 hr 10/11/21 18:00 Temperature 96.3 F L Pulse Rate 74 Respiratory Rate 18 Blood Pressure 142/75 H Pulse Oximetry 96 Oxygen Delivery Method Room Air BMI result Body Mass Index 17.0 Labs Results: 09/27/21 10:36 09/28/21 07:53 Imaging Radiology Impressions: ITS Impressions Head CT 10/03/21 11:57 IMPRESSION: There are scattered chronic small vessel ischemic changes primarily involving the periventricular white matter, basal ganglia, and thalami. Grossly no evidence of acute territorial infarct or hemorrhage. Medications Medications Current Medications Acetaminophen (Acetaminophen 325 Mg Tablet) 650 mg PO Q6H PRN PRN Reason: Headache/Pain Mild Scale (1-3) Al Hydroxide/Mg Hydroxide (Magnesium Hydrox/Alum Hydrox 30 Ml Oral.Susp) 30 ml PO Q6H PRN PRN Reason: Heartburn/Nausea Amlodipine Besylate (Amlodipine Besylate 10 Mg Tablet) 10 mg PO DAILY [facility]; Protocol Last Admin: 10/12/21 08:30 Dose: 10 mg Apixaban (Apixaban 2.5 Mg Tablet) 2.5 mg PO BID [facility] Last Admin: 10/12/21 08:30 Dose: 2.5 mg Atorvastatin Calcium (Atorvastatin Calcium 40 Mg Tablet) 40 mg PO BEDTIME [facility] Last Admin: 10/11/21 19:45 Dose: 40 mg Calcitonin [place] (Calcitonin,[place],Synth Nasal 3.7 Ml Bottle) 1 spray NOSTRILALT DAILY [facility] Last Admin: 10/12/21 09:01 Dose: 1 spray Calcium Carbonate/Cholecalciferol (Calcium + Vitamin D 250 Mg Tablet) 250 mg PO DAILY [facility] Last Admin: 10/12/21 08:29 Dose: 250 mg Digoxin (Digoxin 0.125 Mg Tablet) 0.125 mg PO [facility] Last Admin: 10/12/21 08:59 Dose: 0.125 mg Duloxetine HCl (Duloxetine Hcl 60 Mg Capsule.Dr) 60 mg PO BID [facility] Last Admin: 10/12/21 08:30 Dose: 60 mg Hydroxyzine HCl (Hydroxyzine Hcl 25 Mg Tablet) 25 mg PO Q6H PRN PRN Reason: Anxiety Last Admin: 10/11/21 17:50 Dose: 25 mg Magnesium Hydroxide (Milk Of Magnesia 30 Ml Oral.Susp) 30 ml PO DAILY PRN PRN Reason: Constipation Metoprolol Tartrate (Metoprolol Tartrate 100 Mg Tablet) 100 mg PO BID [facility]; Protocol Last Admin: 10/12/21 08:29 Dose: 100 mg Mirtazapine (Mirtazapine 15 Mg Tablet) 15 mg PO DAILY [facility] Last Admin: 10/12/21 08:29 Dose: 15 mg Risperidone (Risperidone 0.5 Mg Tablet) 0.5 mg PO BID [facility] Last Admin: 10/12/21 08:29 Dose: 0.5 mg Trazodone HCl (Trazodone Hcl 50 Mg Tablet) 50 mg PO BEDTIME PRN PRN Reason: Insomnia Last Admin: 10/09/21 20:20 Dose: 50 mg Allergies Allergies Allergy/AdvReac Type Severity Reaction Status Date / Time morphine AdvReac Severe Alternate Verified 09/27/21 10:25 mental status Assessment & Plan Assessment & Plan (1) Delusion: Status: Acute Code(s): 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 Plan 1. Continue titration of Cymbalta to 60 mg p.o. b.i.d.. 2. Continue with risperidone to target psychosis and mood lability. 3. Add Aricept 5 mg p.o. q.h.s.. I spent __20____ minutes with the patient and/or on the patient floor today, greater than?50% of which was spent counseling/coordinating care. Reason for contiued inpatient stay Substantial Risk for: inability to function, rapid decompensation and med/psych decompensation
[2021-10-12 18:00] VITALS: BP 125/60; PULSE 67; RESP 18; TEMP 36.6; O2SAT 98
[2021-10-12] MEDS: Atorvastatin Calcium 40 MG TABLET PO (21:29)
[2021-10-12] MEDS: Donepezil HCl 5 MG TABLET PO (21:29)
[2021-10-13 06:00] VITALS: BP 110/64; PULSE 75; RESP 18; TEMP 36.2; O2SAT 97
[2021-10-13] MEDS: hydrOXYzine HCL 25 MG TABLET PO (06:11)
[2021-10-13] MEDS: DULoxetine HCl 60 MG CAPSULE.DR PO ×2 (08:35→20:12)
[2021-10-13] MEDS: risperiDONE 0.5 MG TABLET PO ×2 (08:35→20:12)
[2021-10-13] MEDS: Metoprolol Tartrate 100 MG TABLET PO ×2 (08:36→20:13)
[2021-10-13] MEDS: Apixaban 2.5 MG TABLET PO ×2 (08:37→20:13)
[2021-10-13] MEDS: Calcium + Vitamin D 250 MG TABLET PO (08:37)
[2021-10-13] MEDS: amLODIPine Besylate 10 MG TABLET PO (08:37)
[2021-10-13] MEDS: Mirtazapine 15 MG TABLET PO (08:37)
[2021-10-13] MEDS: Calcitonin,Salmon,Synth Nasal 3.7 ML BOTTLE 1 SPRAY NOSTRILALT (08:38)
[2021-10-13] MEDS: Digoxin 0.125 MG TABLET PO (08:38)
--- NOTE | 2021-10-13 11:45 | HO.PSYCHPN ---
Subjective Subjective Date of Service: 10/13/21 Reason For Visit: dementia Subjective Notes: Conditional Voluntary Interim History: The nursing staff reported the patient had been compliant with treatment. She was waited yesterday and she gained 5 lb since admission. The staff has noticed that his depression and dementia has not improved with the current medications. She still very attention seeking and she needs help with her ADLs Mental Status Exam Mental Status Exam Patient Appearance: Appropriate Patient Orientation: Person Level of Consciousness: Awake Patient Behavior: Cooperative Mood Description: Withdrawn Affect Description: Constricted Patient Cognition Impaired: Yes Ability to Follow Directions: Good Speech Pattern: Clear Hallucinations: None Delusions: Not Present Thought Process: Distracted Thought Content: positive for [place] Judgement: Fair Diagnostics Vital Signs (24Hr): Vital Signs - 24 hr 10/12/21 18:00 10/13/21 06:00 Temperature 97.9 F 97.2 F Pulse Rate 67 75 Respiratory Rate 18 18 Blood Pressure 125/60 110/64 Pulse Oximetry 98 97 Oxygen Delivery Method Room Air Room Air BMI result Body Mass Index 17.0 Labs Results: 09/27/21 10:36 09/28/21 07:53 Imaging Radiology Impressions: ITS Impressions Head CT 10/03/21 11:57 IMPRESSION: There are scattered chronic small vessel ischemic changes primarily involving the periventricular white matter, basal ganglia, and thalami. Grossly no evidence of acute territorial infarct or hemorrhage. Medications Medications Current Medications Acetaminophen (Acetaminophen 325 Mg Tablet) 650 mg PO Q6H PRN PRN Reason: Headache/Pain Mild Scale (1-3) Al Hydroxide/Mg Hydroxide (Magnesium Hydrox/Alum Hydrox 30 Ml Oral.Susp) 30 ml PO Q6H PRN PRN Reason: Heartburn/Nausea Amlodipine Besylate (Amlodipine Besylate 10 Mg Tablet) 10 mg PO DAILY [facility]; Protocol Last Admin: 10/13/21 08:37 Dose: 10 mg Apixaban (Apixaban 2.5 Mg Tablet) 2.5 mg PO BID [facility] Last Admin: 10/13/21 08:37 Dose: 2.5 mg Atorvastatin Calcium (Atorvastatin Calcium 40 Mg Tablet) 40 mg PO BEDTIME [facility] Last Admin: 10/12/21 21:29 Dose: 40 mg Calcitonin [place] (Calcitonin,[place],Synth Nasal 3.7 Ml Bottle) 1 spray NOSTRILALT DAILY [facility] Last Admin: 10/13/21 08:38 Dose: 1 spray Calcium Carbonate/Cholecalciferol (Calcium + Vitamin D 250 Mg Tablet) 250 mg PO DAILY [facility] Last Admin: 10/13/21 08:37 Dose: 250 mg Digoxin (Digoxin 0.125 Mg Tablet) 0.125 mg PO [facility] Last Admin: 10/13/21 08:38 Dose: 0.125 mg Donepezil HCl (Donepezil Hcl 5 Mg Tablet) 5 mg PO BEDTIME [facility] Last Admin: 10/12/21 21:29 Dose: 5 mg Duloxetine HCl (Duloxetine Hcl 60 Mg Capsule.Dr) 60 mg PO BID [facility] Last Admin: 10/13/21 08:35 Dose: 60 mg Hydroxyzine HCl (Hydroxyzine Hcl 25 Mg Tablet) 25 mg PO Q6H PRN PRN Reason: Anxiety Last Admin: 10/13/21 06:11 Dose: 25 mg Magnesium Hydroxide (Milk Of Magnesia 30 Ml Oral.Susp) 30 ml PO DAILY PRN PRN Reason: Constipation Metoprolol Tartrate (Metoprolol Tartrate 100 Mg Tablet) 100 mg PO BID [facility]; Protocol Last Admin: 10/13/21 08:36 Dose: 100 mg Mirtazapine (Mirtazapine 15 Mg Tablet) 15 mg PO DAILY [facility] Last Admin: 10/13/21 08:37 Dose: 15 mg Risperidone (Risperidone 0.5 Mg Tablet) 0.5 mg PO BID [facility] Last Admin: 10/13/21 08:35 Dose: 0.5 mg Trazodone HCl (Trazodone Hcl 50 Mg Tablet) 50 mg PO BEDTIME PRN PRN Reason: Insomnia Last Admin: 10/09/21 20:20 Dose: 50 mg Allergies Allergies Allergy/AdvReac Type Severity Reaction Status Date / Time morphine AdvReac Severe Alternate Verified 09/27/21 10:25 mental status Assessment & Plan Assessment & Plan (1) Delusion: Status: Acute Code(s): 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 Plan 1. Continue titration of Cymbalta to 60 mg p.o. b.i.d.. 2. Continue with risperidone to target psychosis and mood lability. 3. Add Aricept 5 mg p.o. q.h.s.. 4. Increase Remeron I spent ___20___ minutes with the patient and/or on the patient floor today, greater than?50% of which was spent counseling/coordinating care. Reason for contiued inpatient stay Substantial Risk for: inability to function, rapid decompensation and med/psych decompensation
--- NOTE | 2021-10-13 14:25 | MHC.CLN ---
F/U DIET=REGULAR. SUPPLEMENT DISCONTINUED PER CONVERSATION WITH PATIENT. WEIGHT STABLE SINCE ADMISSION. INTAKE VARIABLE. STAFF MONITORING INTAKE. FOLLOW WEIGHTS AND MEAL INTAKE. RD TO FOLLOW WEEKLY.
[2021-10-13 18:00] VITALS: BP 129/60; PULSE 86; RESP 17; TEMP 36.2; O2SAT 97
[2021-10-13] MEDS: traZODone HCL 50 MG TABLET PO (20:01)
[2021-10-13] MEDS: Atorvastatin Calcium 40 MG TABLET PO (20:02)
[2021-10-13] MEDS: Donepezil HCl 5 MG TABLET PO (20:13)
[2021-10-14 08:00] VITALS: BP 110/57; PULSE 91; RESP 17; TEMP 36.4; O2SAT 96
[2021-10-14] MEDS: amLODIPine Besylate 10 MG TABLET PO (08:48)
[2021-10-14] MEDS: Metoprolol Tartrate 100 MG TABLET PO ×2 (08:48→21:23)
[2021-10-14] MEDS: Calcium + Vitamin D 250 MG TABLET PO (08:48)
[2021-10-14] MEDS: Mirtazapine 30 MG TABLET PO (08:48)
[2021-10-14] MEDS: Apixaban 2.5 MG TABLET PO ×2 (08:48→21:23)
[2021-10-14] MEDS: Calcitonin,Salmon,Synth Nasal 3.7 ML BOTTLE 1 SPRAY NOSTRILALT (08:49)
[2021-10-14] MEDS: risperiDONE 0.5 MG TABLET PO ×2 (08:49→21:23)
[2021-10-14] MEDS: DULoxetine HCl 60 MG CAPSULE.DR PO ×2 (08:49→21:23)
--- NOTE | 2021-10-14 09:06 | HO.PSYCHPN ---
Subjective Subjective Date of Service: 10/14/21 Reason For Visit: dementia Subjective Notes: [place] Warning Interim History: I spoke with team, pt continues to say she can't swallow despite being george to swallow. I spoke with pt, she is eating lunch and says she cant stop chewing. When re-approached and asked if she can talk, pt says I cant, I wont be able to. No safety concerns. No med adjustments. Medication Compliance: Yes Side effects from medications: No Attending Groups: Intermittent Review of Systems Acute medical concerns: No Medical Review of Systems: unchanged Mental Status Exam Mental Status Exam Narrative: Patient Appearance: Appropriate Patient Orientation: Person Level of Consciousness: Awake Patient Behavior: Cooperative Mood Description: Withdrawn Affect Description: Constricted Patient Cognition Impaired: Yes Ability to Follow Directions: Good Speech Pattern: Clear Hallucinations: None Delusions: Not Present Thought Process: Distracted Thought Content: positive for [place] Judgement: Fair Diagnostics Vital Signs (24Hr): Vital Signs - 24 hr 10/13/21 18:00 Temperature 97.1 F Pulse Rate 86 Respiratory Rate 17 Blood Pressure 129/60 Pulse Oximetry 97 Oxygen Delivery Method Room Air BMI result Body Mass Index 17.0 Labs Results: 09/27/21 10:36 09/28/21 07:53 Imaging Radiology Impressions: ITS Impressions Head CT 10/03/21 11:57 IMPRESSION: There are scattered chronic small vessel ischemic changes primarily involving the periventricular white matter, basal ganglia, and thalami. Grossly no evidence of acute territorial infarct or hemorrhage. Medications Medications Current Medications Acetaminophen (Acetaminophen 325 Mg Tablet) 650 mg PO Q6H PRN PRN Reason: Headache/Pain Mild Scale (1-3) Al Hydroxide/Mg Hydroxide (Magnesium Hydrox/Alum Hydrox 30 Ml Oral.Susp) 30 ml PO Q6H PRN PRN Reason: Heartburn/Nausea Amlodipine Besylate (Amlodipine Besylate 10 Mg Tablet) 10 mg PO DAILY [facility]; Protocol Last Admin: 10/14/21 08:48 Dose: 10 mg Apixaban (Apixaban 2.5 Mg Tablet) 2.5 mg PO BID [facility] Last Admin: 10/14/21 08:48 Dose: 2.5 mg Atorvastatin Calcium (Atorvastatin Calcium 40 Mg Tablet) 40 mg PO BEDTIME [facility] Last Admin: 10/13/21 20:02 Dose: 40 mg Calcitonin [employer] (Calcitonin,[employer],Synth Nasal 3.7 Ml Bottle) 1 spray NOSTRILALT DAILY [facility] Last Admin: 10/14/21 08:49 Dose: 1 spray Calcium Carbonate/Cholecalciferol (Calcium + Vitamin D 250 Mg Tablet) 250 mg PO DAILY [facility] Last Admin: 10/14/21 08:48 Dose: 250 mg Digoxin (Digoxin 0.125 Mg Tablet) 0.125 mg PO [facility] Last Admin: 10/13/21 08:38 Dose: 0.125 mg Donepezil HCl (Donepezil Hcl 5 Mg Tablet) 5 mg PO BEDTIME [facility] Last Admin: 10/13/21 20:13 Dose: 5 mg Duloxetine HCl (Duloxetine Hcl 60 Mg Capsule.Dr) 60 mg PO BID [facility] Last Admin: 10/14/21 08:49 Dose: 60 mg Hydroxyzine HCl (Hydroxyzine Hcl 25 Mg Tablet) 25 mg PO Q6H PRN PRN Reason: Anxiety Last Admin: 10/13/21 06:11 Dose: 25 mg Magnesium Hydroxide (Milk Of Magnesia 30 Ml Oral.Susp) 30 ml PO DAILY PRN PRN Reason: Constipation Metoprolol Tartrate (Metoprolol Tartrate 100 Mg Tablet) 100 mg PO BID [facility]; Protocol Last Admin: 10/14/21 08:48 Dose: 100 mg Mirtazapine (Mirtazapine 30 Mg Tablet) 30 mg PO DAILY [facility] Last Admin: 10/14/21 08:48 Dose: 30 mg Risperidone (Risperidone 0.5 Mg Tablet) 0.5 mg PO BID [facility] Last Admin: 10/14/21 08:49 Dose: 0.5 mg Trazodone HCl (Trazodone Hcl 50 Mg Tablet) 50 mg PO BEDTIME PRN PRN Reason: Insomnia Last Admin: 10/13/21 20:01 Dose: 50 mg Allergies Allergies Allergy/AdvReac Type Severity Reaction Status Date / Time morphine AdvReac Severe Alternate Verified 09/27/21 10:25 mental status Assessment & Plan Assessment & Plan (1) Delusion: Status: Acute Code(s): 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 Plan 1. Continue titration of Cymbalta to 60 mg p.o. b.i.d.. 2. Continue with risperidone to target psychosis and mood lability. 3. Add Aricept 5 mg p.o. q.h.s.. 4. Increase Remeron I spent minutes with the patient and/or on the patient floor today, greater than?50% of which was spent counseling/coordinating care. Reason for contiued inpatient stay Substantial Risk for: inability to function and med/psych decompensation
[2021-10-14 18:00] VITALS: BP 114/62; PULSE 75; RESP 16; TEMP 36.1; O2SAT 97
[2021-10-14] MEDS: Donepezil HCl 5 MG TABLET PO (21:23)
[2021-10-14] MEDS: Atorvastatin Calcium 40 MG TABLET PO (21:23)
[2021-10-15 07:45] VITALS: BP 130/65; PULSE 79; RESP 16; TEMP 36.8; O2SAT 96
[2021-10-15] MEDS: DULoxetine HCl 60 MG CAPSULE.DR PO ×2 (07:48→21:21)
[2021-10-15] MEDS: Metoprolol Tartrate 100 MG TABLET PO ×2 (07:48→21:21)
[2021-10-15] MEDS: amLODIPine Besylate 10 MG TABLET PO (07:49)
[2021-10-15] MEDS: Calcium + Vitamin D 250 MG TABLET PO (07:49)
[2021-10-15] MEDS: Mirtazapine 30 MG TABLET PO (07:49)
[2021-10-15] MEDS: risperiDONE 0.5 MG TABLET PO ×2 (07:49→21:22)
[2021-10-15] MEDS: Apixaban 2.5 MG TABLET PO ×2 (07:50→21:22)
[2021-10-15] MEDS: Calcitonin,Salmon,Synth Nasal 3.7 ML BOTTLE 1 SPRAY NOSTRILALT (07:53)
--- NOTE | 2021-10-15 17:43 | P.PNPSI_ITS ---
Subjective Subjective Date of Service: 10/15/21 Reason For Visit: dementia Subjective Notes: [place] Warning Interim History: I spoke with pt's team, she is isolative and continues to complain about swalloing. I spoke with pt, she says she is not good, unable to say why, I dont know. She drank ensure. Overall pt is confused and anxious, says she doesnt know what to do. No medication changes. Medication Compliance: Yes Side effects from medications: No Attending Groups: Intermittent Review of Systems Acute medical concerns: No Medical Review of Systems: unchanged Mental Status Exam Mental Status Exam Narrative: Patient Appearance: Appropriate Patient Orientation: Person Level of Consciousness: Awake Patient Behavior: Cooperative Mood Description: Withdrawn Affect Description: Constricted Patient Cognition Impaired: Yes Ability to Follow Directions: Good Speech Pattern: Clear Hallucinations: None Delusions: Not Present Thought Process: Distracted Thought Content: positive for [place] Judgement: Fair Diagnostics Vital Signs (24Hr): Vital Signs - 24 hr 10/14/21 18:00 10/15/21 07:45 Temperature 97 F 98.3 F Pulse Rate 75 79 Respiratory Rate 16 16 Blood Pressure 114/62 130/65 Pulse Oximetry 97 96 Oxygen Delivery Method Room Air Room Air BMI result Body Mass Index 17.0 Labs Results: 09/27/21 10:36 09/28/21 07:53 Imaging Radiology Impressions: ITS Impressions Head CT 10/03/21 11:57 IMPRESSION: There are scattered chronic small vessel ischemic changes primarily involving the periventricular white matter, basal ganglia, and thalami. Grossly no evidence of acute territorial infarct or hemorrhage. Medications Medications Current Medications Acetaminophen (Acetaminophen 325 Mg Tablet) 650 mg PO Q6H PRN PRN Reason: Headache/Pain Mild Scale (1-3) Al Hydroxide/Mg Hydroxide (Magnesium Hydrox/Alum Hydrox 30 Ml Oral.Susp) 30 ml PO Q6H PRN PRN Reason: Heartburn/Nausea Amlodipine Besylate (Amlodipine Besylate 10 Mg Tablet) 10 mg PO DAILY [facility]; Protocol Last Admin: 10/15/21 07:49 Dose: 10 mg Apixaban (Apixaban 2.5 Mg Tablet) 2.5 mg PO BID [facility] Last Admin: 10/15/21 07:50 Dose: 2.5 mg Atorvastatin Calcium (Atorvastatin Calcium 40 Mg Tablet) 40 mg PO BEDTIME [facility] Last Admin: 10/14/21 21:23 Dose: 40 mg Calcitonin [place] (Calcitonin,[place],Synth Nasal 3.7 Ml Bottle) 1 spray NOSTRILALT DAILY [facility] Last Admin: 10/15/21 07:53 Dose: 1 spray Calcium Carbonate/Cholecalciferol (Calcium + Vitamin D 250 Mg Tablet) 250 mg PO DAILY [facility] Last Admin: 10/15/21 07:49 Dose: 250 mg Digoxin (Digoxin 0.125 Mg Tablet) 0.125 mg PO [facility] Last Admin: 10/13/21 08:38 Dose: 0.125 mg Donepezil HCl (Donepezil Hcl 5 Mg Tablet) 5 mg PO BEDTIME [facility] Last Admin: 10/14/21 21:23 Dose: 5 mg Duloxetine HCl (Duloxetine Hcl 60 Mg Capsule.Dr) 60 mg PO BID [facility] Last Admin: 10/15/21 07:48 Dose: 60 mg Hydroxyzine HCl (Hydroxyzine Hcl 25 Mg Tablet) 25 mg PO Q6H PRN PRN Reason: Anxiety Last Admin: 10/13/21 06:11 Dose: 25 mg Magnesium Hydroxide (Milk Of Magnesia 30 Ml Oral.Susp) 30 ml PO DAILY PRN PRN Reason: Constipation Metoprolol Tartrate (Metoprolol Tartrate 100 Mg Tablet) 100 mg PO BID [facility]; Protocol Last Admin: 10/15/21 07:48 Dose: 100 mg Mirtazapine (Mirtazapine 30 Mg Tablet) 30 mg PO DAILY [facility] Last Admin: 10/15/21 07:49 Dose: 30 mg Risperidone (Risperidone 0.5 Mg Tablet) 0.5 mg PO BID [facility] Last Admin: 10/15/21 07:49 Dose: 0.5 mg Trazodone HCl (Trazodone Hcl 50 Mg Tablet) 50 mg PO BEDTIME PRN PRN Reason: Insomnia Last Admin: 10/13/21 20:01 Dose: 50 mg Allergies Allergies Allergy/AdvReac Type Severity Reaction Status Date / Time morphine AdvReac Severe Alternate Verified 09/27/21 10:25 mental status Assessment & Plan Assessment & Plan (1) Delusion: Status: Acute Code(s): 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 Plan 1. Continue titration of Cymbalta to 60 mg p.o. b.i.d.. 2. Continue with risperidone to target psychosis and mood lability. 3. Add Aricept 5 mg p.o. q.h.s.. 4. Increase Remeron I spent minutes with the patient and/or on the patient floor today, greater than?50% of which was spent counseling/coordinating care. Reason for contiued inpatient stay Substantial Risk for: inability to function, rapid decompensation and med/psych decompensation
[2021-10-15 18:00] VITALS: BP 112/56; PULSE 89; RESP 17; TEMP 36; O2SAT 97
[2021-10-15] MEDS: Donepezil HCl 5 MG TABLET PO (21:21)
[2021-10-15] MEDS: Atorvastatin Calcium 40 MG TABLET PO (21:22)
[2021-10-16 08:45] VITALS: BP 112/64; PULSE 90; RESP 13; TEMP 36.2; O2SAT 94
[2021-10-16] MEDS: Calcium + Vitamin D 250 MG TABLET PO (08:48)
[2021-10-16] MEDS: DULoxetine HCl 60 MG CAPSULE.DR PO ×2 (08:48→19:49)
[2021-10-16] MEDS: Apixaban 2.5 MG TABLET PO ×2 (08:49→19:49)
[2021-10-16] MEDS: Mirtazapine 30 MG TABLET PO (08:49)
[2021-10-16] MEDS: Metoprolol Tartrate 100 MG TABLET PO ×2 (08:49→19:49)
[2021-10-16] MEDS: risperiDONE 0.5 MG TABLET PO ×2 (08:49→19:48)
[2021-10-16] MEDS: amLODIPine Besylate 10 MG TABLET PO (08:49)
--- NOTE | 2021-10-16 15:58 | P.PNPSI_ITS ---
Subjective Subjective Date of Service: 10/16/21 Reason For Visit: dementia Subjective Notes: Conditional Voluntary Interim History: The nursing staff reported that patient has been very confused, she does not know her she has and she does not remember how come she in the here in the hospital. Even though she looks more confused than luis l she had a very poor p.o. intake but her affect looks slightly brighter than before. No evidence of side effects with the current medication Mental Status Exam Mental Status Exam Patient Appearance: Well Grooomed Patient Orientation: Person and Situation Level of Consciousness: Disoriented and Restless Patient Behavior: Appropriate Mood Description: Constricted Affect Description: Constricted Patient Cognition Impaired: Yes Ability to Follow Directions: Good Speech Pattern: Appropriate Hallucinations: None Delusions: Paranoid Ideation Thought Process: Illogical and Evasive Thought Content: positive for [place] of Content Judgement: Fair Diagnostics Vital Signs (24Hr): Vital Signs - 24 hr 10/15/21 18:00 10/16/21 08:45 Temperature 96.8 F 97.1 F Pulse Rate 89 90 Respiratory Rate 17 13 Blood Pressure 112/56 L 112/64 Pulse Oximetry 97 94 Oxygen Delivery Method Room Air Room Air BMI result Body Mass Index 17.0 Labs Results: 09/27/21 10:36 09/28/21 07:53 Imaging Radiology Impressions: ITS Impressions Head CT 10/03/21 11:57 IMPRESSION: There are scattered chronic small vessel ischemic changes primarily involving the periventricular white matter, basal ganglia, and thalami. Grossly no evidence of acute territorial infarct or hemorrhage. Medications Medications Current Medications Acetaminophen (Acetaminophen 325 Mg Tablet) 650 mg PO Q6H PRN PRN Reason: Headache/Pain Mild Scale (1-3) Al Hydroxide/Mg Hydroxide (Magnesium Hydrox/Alum Hydrox 30 Ml Oral.Susp) 30 ml PO Q6H PRN PRN Reason: Heartburn/Nausea Amlodipine Besylate (Amlodipine Besylate 10 Mg Tablet) 10 mg PO DAILY [facility]; Protocol Last Admin: 10/16/21 08:49 Dose: 10 mg Apixaban (Apixaban 2.5 Mg Tablet) 2.5 mg PO BID [facility] Last Admin: 10/16/21 08:49 Dose: 2.5 mg Atorvastatin Calcium (Atorvastatin Calcium 40 Mg Tablet) 40 mg PO BEDTIME [facility] Last Admin: 10/15/21 21:22 Dose: 40 mg Calcitonin [place] (Calcitonin,[place],Synth Nasal 3.7 Ml Bottle) 1 spray NOSTRILALT DAILY [facility] Last Admin: 10/16/21 09:52 Dose: Not Given Calcium Carbonate/Cholecalciferol (Calcium + Vitamin D 250 Mg Tablet) 250 mg PO DAILY [facility] Last Admin: 10/16/21 08:48 Dose: 250 mg Digoxin (Digoxin 0.125 Mg Tablet) 0.125 mg PO WE [facility] Last Admin: 10/13/21 08:38 Dose: 0.125 mg Donepezil HCl (Donepezil Hcl 5 Mg Tablet) 5 mg PO BEDTIME [facility] Last Admin: 10/15/21 21:21 Dose: 5 mg Duloxetine HCl (Duloxetine Hcl 60 Mg Capsule.Dr) 60 mg PO BID [facility] Last Admin: 10/16/21 08:48 Dose: 60 mg Hydroxyzine HCl (Hydroxyzine Hcl 25 Mg Tablet) 25 mg PO Q6H PRN PRN Reason: Anxiety Last Admin: 10/13/21 06:11 Dose: 25 mg Magnesium Hydroxide (Milk Of Magnesia 30 Ml Oral.Susp) 30 ml PO DAILY PRN PRN Reason: Constipation Metoprolol Tartrate (Metoprolol Tartrate 100 Mg Tablet) 100 mg PO BID [facility]; Protocol Last Admin: 10/16/21 08:49 Dose: 100 mg Mirtazapine (Mirtazapine 30 Mg Tablet) 30 mg PO DAILY [facility] Last Admin: 10/16/21 08:49 Dose: 30 mg Risperidone (Risperidone 0.5 Mg Tablet) 0.5 mg PO BID [facility] Last Admin: 10/16/21 08:49 Dose: 0.5 mg Trazodone HCl (Trazodone Hcl 50 Mg Tablet) 50 mg PO BEDTIME PRN PRN Reason: Insomnia Last Admin: 10/13/21 20:01 Dose: 50 mg Allergies Allergies Allergy/AdvReac Type Severity Reaction Status Date / Time morphine AdvReac Severe Alternate Verified 09/27/21 10:25 mental status Assessment & Plan Assessment & Plan (1) Delusion: Status: Acute Code(s): 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 Plan 1. Continue titration of Cymbalta to 60 mg p.o. b.i.d.. 2. Continue with risperidone to target psychosis and mood lability. 3. Add Aricept 5 mg p.o. q.h.s.. 4. Increase Remeron I spent ___20___ minutes with the patient and/or on the patient floor today, greater than?50% of which was spent counseling/coordinating care. Reason for contiued inpatient stay Substantial Risk for: inability to function, rapid decompensation and med/psych decompensation
[2021-10-16 18:00] VITALS: BP 132/77; PULSE 95; RESP 16; TEMP 35.7; O2SAT 97
[2021-10-16 19:47] VITALS: BP 150/69; PULSE 99
[2021-10-16] MEDS: Donepezil HCl 5 MG TABLET PO (19:49)
[2021-10-16] MEDS: Atorvastatin Calcium 40 MG TABLET PO (19:49)
[2021-10-17] MEDS: Calcium + Vitamin D 250 MG TABLET PO (07:50)
[2021-10-17] MEDS: Apixaban 2.5 MG TABLET PO (07:50)
[2021-10-17] MEDS: risperiDONE 0.5 MG TABLET PO (07:51)
[2021-10-17] MEDS: DULoxetine HCl 60 MG CAPSULE.DR PO (07:51)
[2021-10-17] MEDS: Mirtazapine 30 MG TABLET PO (07:52)
[2021-10-17] MEDS: Metoprolol Tartrate 100 MG TABLET PO (07:52)
[2021-10-17] MEDS: amLODIPine Besylate 10 MG TABLET PO (07:55)
[2021-10-17] MEDS: Calcitonin,Salmon,Synth Nasal 3.7 ML BOTTLE 1 SPRAY NOSTRILALT (07:56)
[2021-10-17 08:00] VITALS: BP 104/58; PULSE 77; RESP 16; TEMP 36.4; O2SAT 96
[2021-10-17 08:04] VITALS: PULSE 81
[2021-10-17] MEDS: Digoxin 0.125 MG TABLET PO (08:09)
--- NOTE | 2021-10-17 17:19 | HO.PSYCHPN ---
Subjective Subjective Date of Service: 10/17/21 Reason For Visit: dementia Subjective Notes: Conditional Voluntary Interim History: The nursing staff reported that the patient needs some help with her feeding, yesterday she was complaining that there was nothing, that she did not have any food on her tray even though that she had her regular diet. According to nursing, the patient has gained 5 lb in the last weeks since she was admitted. On interview, the patient was in her room is stating that she was doing fairly well. She denies new symptoms. On interview with the clinical social work therapist she stated we will have a family meeting pretty soon. Blood work was ordered for tomorrow morning Mental Status Exam Mental Status Exam Patient Appearance: Well Grooomed Patient Orientation: Person and Situation Level of Consciousness: Awake Patient Behavior: Cooperative Mood Description: Constricted Affect Description: Calm Patient Cognition Impaired: Yes Ability to Follow Directions: Good Speech Pattern: Impoverished Hallucinations: None Delusions: Not Present Thought Process: Distracted Thought Content: positive for [place] Judgement: Fair Diagnostics Vital Signs (24Hr): Vital Signs - 24 hr 10/16/21 18:00 10/16/21 19:47 10/17/21 08:04 Temperature 96.2 F L Pulse Rate 95 99 81 Respiratory Rate 16 Blood Pressure 132/77 150/69 H Pulse Oximetry 97 Oxygen Delivery Method Room Air 10/17/21 08:00 Temperature 97.5 F Pulse Rate 77 Respiratory Rate 16 Blood Pressure 104/58 L Pulse Oximetry 96 Oxygen Delivery Method Room Air BMI result Body Mass Index 17.0 Labs Results: 09/27/21 10:36 09/28/21 07:53 Imaging Radiology Impressions: ITS Impressions Head CT 10/03/21 11:57 IMPRESSION: There are scattered chronic small vessel ischemic changes primarily involving the periventricular white matter, basal ganglia, and thalami. Grossly no evidence of acute territorial infarct or hemorrhage. Medications Medications Current Medications Acetaminophen (Acetaminophen 325 Mg Tablet) 650 mg PO Q6H PRN PRN Reason: Headache/Pain Mild Scale (1-3) Al Hydroxide/Mg Hydroxide (Magnesium Hydrox/Alum Hydrox 30 Ml Oral.Susp) 30 ml PO Q6H PRN PRN Reason: Heartburn/Nausea Amlodipine Besylate (Amlodipine Besylate 10 Mg Tablet) 10 mg PO DAILY [facility]; Protocol Last Admin: 10/17/21 07:55 Dose: 10 mg Apixaban (Apixaban 2.5 Mg Tablet) 2.5 mg PO BID [facility] Last Admin: 10/17/21 07:50 Dose: 2.5 mg Atorvastatin Calcium (Atorvastatin Calcium 40 Mg Tablet) 40 mg PO BEDTIME [facility] Last Admin: 10/16/21 19:49 Dose: 40 mg Calcitonin [place] (Calcitonin,[place],Synth Nasal 3.7 Ml Bottle) 1 spray NOSTRILALT DAILY [facility] Last Admin: 10/17/21 07:56 Dose: 1 spray Calcium Carbonate/Cholecalciferol (Calcium + Vitamin D 250 Mg Tablet) 250 mg PO DAILY [facility] Last Admin: 10/17/21 07:50 Dose: 250 mg Digoxin (Digoxin 0.125 Mg Tablet) 0.125 mg PO WE [facility] Last Admin: 10/17/21 08:09 Dose: 0.125 mg Donepezil HCl (Donepezil Hcl 5 Mg Tablet) 5 mg PO BEDTIME [facility] Last Admin: 10/16/21 19:49 Dose: 5 mg Duloxetine HCl (Duloxetine Hcl 60 Mg Capsule.Dr) 60 mg PO BID [facility] Last Admin: 10/17/21 07:51 Dose: 60 mg Hydroxyzine HCl (Hydroxyzine Hcl 25 Mg Tablet) 25 mg PO Q6H PRN PRN Reason: Anxiety Last Admin: 10/13/21 06:11 Dose: 25 mg Magnesium Hydroxide (Milk Of Magnesia 30 Ml Oral.Susp) 30 ml PO DAILY PRN PRN Reason: Constipation Metoprolol Tartrate (Metoprolol Tartrate 100 Mg Tablet) 100 mg PO BID [facility]; Protocol Last Admin: 10/17/21 07:52 Dose: 100 mg Mirtazapine (Mirtazapine 30 Mg Tablet) 30 mg PO DAILY [facility] Last Admin: 10/17/21 07:52 Dose: 30 mg Risperidone (Risperidone 0.5 Mg Tablet) 0.5 mg PO BID [facility] Last Admin: 10/17/21 07:51 Dose: 0.5 mg Trazodone HCl (Trazodone Hcl 50 Mg Tablet) 50 mg PO BEDTIME PRN PRN Reason: Insomnia Last Admin: 10/13/21 20:01 Dose: 50 mg Allergies Allergies Allergy/AdvReac Type Severity Reaction Status Date / Time morphine AdvReac Severe Alternate Verified 09/27/21 10:25 mental status Assessment & Plan Assessment & Plan (1) Delusion: Status: Acute Code(s): 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 Plan 1. Continue titration of Cymbalta to 60 mg p.o. b.i.d.. 2. Continue with risperidone to target psychosis and mood lability. 3. Add Aricept 5 mg p.o. q.h.s.. 4. Increase Remeron I spent __20____ minutes with the patient and/or on the patient floor today, greater than?50% of which was spent counseling/coordinating care. Reason for contiued inpatient stay Substantial Risk for: inability to function, rapid decompensation and med/psych decompensation
--- NOTE | 2021-10-17 18:33 | PC.NURSE ---
Assisted by staff with breakfast meal. Did not state she could not swallow or say, No or I can't , to this telegraphic typewriter operator. Minimally engaging with others at breakfast, chewed food quietly. Engaging with staff at lunch time spontaneously with lengthy, descriptive conversation. Animated, smiling, using hand gestures while speaking. Ate 3/4 pizza, 1/2 soup and dessert independently while conversing. Displaying humor with staff. Napped late afternoon and visible again in milieu when she was called out of room to answer phone call from daughter at 1630. Exited room without walker, gait steady. Reminded to utilize walker and laughed when she stated she forgot it and was in sage to speak to daughter. Spoke at length to daughter on phone, approximately 25 min, animated, smiling, laughing. Sat in front of tray at supper, initially observed picking at food and then stopped and stared at food. Staff assisted with chopping up meatloaf and placing food on spoon for pt to bulk picker. Pt initially picked up spoon with food on it to eat that staff had filled and then stopped. Pt continued to stare at food. Staff assisted with feeding at that point. Pt not responding to cues/encouragement to eat independently. Pt stated to one staff member that food would not go down. Minimally engaging with staff, nodding at times for response. Did not respond when reminded that she had just been speaking to daughter happily, engaging well in afternoon with staff, eating independently. Alert and oriented x4 at lunch time. Stated she is here due to depression and anxiety. Nodded in response when asked if she was experiencing depression/anxiety at supper time when she returned to responding minimally.
[2021-10-17 21:03] VITALS: BP 100/53; PULSE 88; RESP 16; TEMP 36; O2SAT 98
[2021-10-18 07:55] VITALS: BP 125/58; PULSE 63; RESP 16; TEMP 36.7; O2SAT 98
[2021-10-18 08:37] LABS: MANUAL DIFF FLAG NO
[2021-10-18 08:40] LABS: Basophils Percent Auto 0.4 % (0-2); Eosinophils Absolute Auto 0.1 X10*3/uL (0.0-0.4); Hematocrit 35.2 % (37.0-47.0); Hemoglobin 11.8 g/dl (12.0-16.0); Imm Gran Abs Auto 0.02 X10*3/uL (0.00-0.03); Imm Gran Pct Auto 0.3 % (0.0-0.4); Lymphocytes Absolute Auto 2.3 X10*3/uL (1.2-4.9); Lymphocytes Percent Auto 31.6 % (20-40); Mean Corpuscular HGB Conc 33.5 g/dl (31.0-35.0); Mean Corpuscular Hemoglobin 30.2 pg (27.0-33.0); Mean Platelet Volume 11.9 fL (9.4-12.3); Monocytes Absolute Auto 0.4 X10*3/uL (0.1-1.2); Monocytes Percent Auto 4.9 % (2-11); Neutrophils Absolute Auto 4.5 x10*3/uL (2.0-8.3); Neutrophils Percent Auto 61.8 % (45-73); Platelet Count 178 X10*3/uL (160-400); Red Blood Count 3.91 X10*6/uL (4.20-5.50); Red Cell Distribution Width 14.3 % (11.0-16.0); White Blood Count 7.3 X10*3/uL (4.8-10.8)
[2021-10-18 08:53] LABS: Estimated Average Glucose 108 mg/dL; Hemoglobin A1c % 5.4 %
[2021-10-18 08:58] LABS: Alanine Aminotransferase 70 U/L (0-31); Albumin Level 3.4 g/dL (3.5-5.0); Alkaline Phosphatase 65 U/L (39-117); Anion Gap 13 (12-20); Aspartate Amino Transferase 29 U/L (5-31); Bilirubin Direct 0.2 mg/dL (0.0-0.5); Bilirubin Total 0.2 mg/dL (0.0-1.0); Blood Urea Nitrogen 55 mg/dL (9-16); Calcium 9.2 mg/dL (8.4-10.2); Carbon Dioxide 28 mmol/L (22-29); Chloride 103 mmol/L (96-108); Cholesterol 116 mg/dL; Creatinine Clr Calc Pharmacy 29.1; Estimated Glomerular Filt Rate 54; Glucose Random 90 mg/dL (60-115); HDL Cholesterol 59 mg/dL; LDL Cholesterol Calculated 46 mg/dl; Sodium 140 mmol/L (135-145); Total Protein 5.6 g/dL (6.5-8.0); Triglycerides 57 mg/dL
[2021-10-18 09:50] VITALS: PULSE 104
[2021-10-18] MEDS: amLODIPine Besylate 10 MG TABLET PO (09:50)
[2021-10-18] MEDS: DULoxetine HCl 60 MG CAPSULE.DR PO ×2 (09:50→19:44)
[2021-10-18] MEDS: Mirtazapine 30 MG TABLET PO (09:51)
[2021-10-18] MEDS: risperiDONE 0.5 MG TABLET PO ×2 (09:51→19:44)
[2021-10-18] MEDS: Calcium + Vitamin D 250 MG TABLET PO (09:51)
[2021-10-18] MEDS: Metoprolol Tartrate 100 MG TABLET PO ×2 (09:51→19:44)
[2021-10-18] MEDS: Apixaban 2.5 MG TABLET PO ×2 (09:51→19:44)
[2021-10-18] MEDS: Digoxin 0.125 MG TABLET PO (09:53)
[2021-10-18] MEDS: Calcitonin,Salmon,Synth Nasal 3.7 ML BOTTLE 1 SPRAY NOSTRILALT (10:10)
[2021-10-18 11:03] VITALS: PULSE 84
[2021-10-18] MEDS: hydrOXYzine HCL 25 MG TABLET PO (16:02)
--- NOTE | 2021-10-18 16:25 | HO.PSYCHPN ---
Subjective Subjective Date of Service: 10/18/21 Reason For Visit: dementia Subjective Notes: Conditional Voluntary Interim History: The nursing staff reported that yesterday the patient was up, alert and with good mood after having a conversation over the phone with his daughter. Later on, she was attention seeking and requested help for basic ADL less. The executive secretary social welfare reported that her son has visited several institutions for possible transfer. On interview the patient denies new symptoms she looks internally preoccupied and confused. Her blood work came back within normal limits no major changes Mental Status Exam Mental Status Exam Patient Appearance: Well Grooomed Patient Orientation: Person and Situation Level of Consciousness: Awake Patient Behavior: Cooperative Mood Description: Withdrawn Affect Description: Constricted Patient Cognition Impaired: Yes Ability to Follow Directions: Good Speech Pattern: Clear Hallucinations: None Thought Process: Linear Thought Content: positive for Disoriented Judgement: Fair Diagnostics Vital Signs (24Hr): Vital Signs - 24 hr 10/17/21 21:03 10/18/21 07:55 10/18/21 09:50 Temperature 96.8 F 98.1 F Pulse Rate 88 63 104 H Respiratory Rate 16 16 Blood Pressure 100/53 L 125/58 L Pulse Oximetry 98 98 Oxygen Delivery Method Room Air Room Air 10/18/21 11:03 Temperature Pulse Rate 84 Respiratory Rate Blood Pressure Pulse Oximetry Oxygen Delivery Method BMI result Body Mass Index 17.0 Labs Results: 10/18/21 08:18 10/18/21 08:18 Labs: Laboratory Results - last 48 hr 10/18/21 10/18/21 10/18/21 08:18 08:18 08:18 WBC 7.3 RBC 3.91 L Hgb 11.8 L Hct 35.2 L MCV 90.0 MCH 30.2 MCHC 33.5 RDW 14.3 Plt Count 178 MPV 11.9 Immature Gran % (Auto) 0.3 Neut % (Auto) 61.8 Lymph % (Auto) 31.6 Carbon % (Auto) 4.9 Eos % (Auto) 1.0 Baso % (Auto) 0.4 Lymph # (Auto) 2.3 Carbon # (Auto) 0.4 Eos # (Auto) 0.1 Baso # (Auto) 0.0 Abs Immat Gran (auto) 0.02 Absolute Neuts (auto) 4.5 Absolute Nucleated RBC 0.000 Nucleated RBC % (auto) 0.0 Sodium 140 Potassium 4.0 Chloride 103 Carbon Dioxide 28 Anion Gap 13 BUN 55 H D Creatinine 0.98 Estim Creat Clear Calc 29.1 Estimated GFR 54 Random Glucose 90 Estimat Average Glucose 108 Hemoglobin A1c % 5.4 Calcium 9.2 Total Bilirubin 0.2 Direct Bilirubin 0.2 AST 29 ALT 70 H Alkaline Phosphatase 65 Total Protein 5.6 L Albumin 3.4 L Triglycerides 57 Cholesterol 116 LDL Cholesterol, Calc 46 HDL Cholesterol 59 D TSH 2.80 Imaging Radiology Impressions: ITS Impressions Head CT 10/03/21 11:57 IMPRESSION: There are scattered chronic small vessel ischemic changes primarily involving the periventricular white matter, basal ganglia, and thalami. Grossly no evidence of acute territorial infarct or hemorrhage. Medications Medications Current Medications Acetaminophen (Acetaminophen 325 Mg Tablet) 650 mg PO Q6H PRN PRN Reason: Headache/Pain Mild Scale (1-3) Al Hydroxide/Mg Hydroxide (Magnesium Hydrox/Alum Hydrox 30 Ml Oral.Susp) 30 ml PO Q6H PRN PRN Reason: Heartburn/Nausea Amlodipine Besylate (Amlodipine Besylate 10 Mg Tablet) 10 mg PO DAILY [facility]; Protocol Last Admin: 10/18/21 09:50 Dose: 10 mg Apixaban (Apixaban 2.5 Mg Tablet) 2.5 mg PO BID [facility] Last Admin: 10/18/21 09:51 Dose: 2.5 mg Atorvastatin Calcium (Atorvastatin Calcium 40 Mg Tablet) 40 mg PO BEDTIME [facility] Last Admin: 10/17/21 22:58 Dose: Not Given Calcitonin [place] (Calcitonin,[place],Synth Nasal 3.7 Ml Bottle) 1 spray NOSTRILALT DAILY [facility] Last Admin: 10/18/21 10:10 Dose: 1 spray Calcium Carbonate/Cholecalciferol (Calcium + Vitamin D 250 Mg Tablet) 250 mg PO DAILY [facility] Last Admin: 10/18/21 09:51 Dose: 250 mg Digoxin (Digoxin 0.125 Mg Tablet) 0.125 mg PO [facility] Last Admin: 10/18/21 09:53 Dose: 0.125 mg Donepezil HCl (Donepezil Hcl 5 Mg Tablet) 5 mg PO BEDTIME [facility] Last Admin: 10/17/21 22:58 Dose: Not Given Duloxetine HCl (Duloxetine Hcl 60 Mg Capsule.) 60 mg PO BID [facility] Last Admin: 10/18/21 09:50 Dose: 60 mg Hydroxyzine HCl (Hydroxyzine Hcl 25 Mg Tablet) 25 mg PO Q6H PRN PRN Reason: Anxiety Last Admin: 10/18/21 16:02 Dose: 25 mg Magnesium Hydroxide (Milk Of Magnesia 30 Ml Oral.Susp) 30 ml PO DAILY PRN PRN Reason: Constipation Metoprolol Tartrate (Metoprolol Tartrate 100 Mg Tablet) 100 mg PO BID [facility]; Protocol Last Admin: 10/18/21 09:51 Dose: 100 mg Mirtazapine (Mirtazapine 30 Mg Tablet) 30 mg PO DAILY [facility] Last Admin: 10/18/21 09:51 Dose: 30 mg Risperidone (Risperidone 0.5 Mg Tablet) 0.5 mg PO BID [facility] Last Admin: 10/18/21 09:51 Dose: 0.5 mg Trazodone HCl (Trazodone Hcl 50 Mg Tablet) 50 mg PO BEDTIME PRN PRN Reason: Insomnia Last Admin: 10/13/21 20:01 Dose: 50 mg Allergies Allergies Allergy/AdvReac Type Severity Reaction Status Date / Time morphine AdvReac Severe Alternate Verified 09/27/21 10:25 mental status Assessment & Plan Assessment & Plan (1) Delusion: Status: Acute Code(s): 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 Plan 1. Continue titration of Cymbalta to 60 mg p.o. b.i.d.. 2. Continue with risperidone to target psychosis and mood lability. 3. Add Aricept 5 mg p.o. q.h.s.. 4. Increase Remeron I spent __20____ minutes with the patient and/or on the patient floor today, greater than?50% of which was spent counseling/coordinating care. Reason for contiued inpatient stay Substantial Risk for: inability to function, rapid decompensation and med/psych decompensation
[2021-10-18 18:00] VITALS: BP 148/74; PULSE 88; RESP 16; TEMP 35.9; O2SAT 96
--- NOTE | 2021-10-19 | ECG_ITS ---
Test Reason : AF/RVR Blood Pressure : / mmHG Vent. Rate : 156 BPM Atrial Rate : 000 BPM P-R Int : 000 ms QRS Dur : 084 ms QT Int : 282 ms P-R-T Axes : 000 -55 164 degrees QTc Int : 454 ms Atrial fibrillation with rapid ventricular response with premature ventricular or aberrantly conducted complexes Left axis deviation Anteroseptal infarct (cited on or before 29-MAR-2020) Marked ST abnormality, possible lateral subendocardial injury Abnormal ECG When compared with ECG of 27-SEP-2021 19:46, Vent. rate has increased BY [address] now depressed in Lateral leads Nonspecific T wave abnormality no longer evident in Anterior leads Referred By: Irina Acosta Electronically Signed By:JUSTIN WILCOX
[2021-10-19 06:00] VITALS: BP 122/72; PULSE 84; RESP 16; TEMP 36.4; O2SAT 97
[2021-10-19] MEDS: hydrOXYzine HCL 25 MG TABLET PO (13:08)
[2021-10-19] MEDS: risperiDONE 0.5 MG TABLET PO (14:38)
[2021-10-19] MEDS: LORazepam 1 MG TABLET PO (15:12)
--- NOTE | 2021-10-19 15:16 | PM.IMHP ---
History of Present Illness Date of Service: 10/19/21 Chief Complaint: agitation 80yo F with AF, chronic HFpEF, HTN, history of ocular melanoma, dementia, and history of encephalopathy who was admitted to the geriatric psychiatry unit on 09/28/21 with worsening depression after her daughter, her primary caregiver, committed suicide a few weeks prior. She also lost her in January 2021. She came in with worsening lethargy, insomnia, and a 30 lb weight loss from poor PO intake. She has been placed on duolxetine, mirtazapine, risperidone, and donepezil and has gained 5 lb. However, yesterday, she quite suddenly stopped eating and drinking and today refused all of her medications. The psychiatrist placed an urgent hospitalist consult due to concerns about increasing confusion and agitation, and refusal of all oral intake. I arrived to find her confused, disoriented, and agitated. Her vital signs this morning were normal. She appears to be in rapid AF with RVR in the 150s. Due to her mental status, I cannot obtain a reliable ROS from her. However, she was noted by nursing staff to be ambulatory this morning. Review of Systems Review of Systems: Yes Unobtainable due to mental condition and Unobtainable due to mental status PMFSH Medical History Anxiety Atrial fibrillation with controlled ventricular rate Dementia Depression Diastolic heart failure GERD (gastroesophageal reflux disease) History of rib fracture HTN (hypertension) Ocular melanoma Family History Mother No problems noted. Father No problems noted. Surgical History No pertinent past surgical history Social History Household Members: Other Household Members Other:: son Housing: House Housing Other:: [facility] Do you presently have visiting nurse or other home services: No Unable to assess alcohol history related to: Unable to respond Alcohol intake: never Patient Tobacco Use Status: Never used Tobacco Smoked in Last 30 Days: No Second Hand Smoke Exposure: No Use of substances other than those prescribed or required for medical reasons: No Currently Displaying Signs/Symptoms of Drug Intoxication Withdrawal: No Any prior treatment program specific to substance use: No Have you been hit, kicked, punched, or otherwise hurt by someone within the past year? If so, by whom?: No (unable) Do you feel safe in your current relationship?: No Current Relationship Advance Directives: Yes Advance Directives on File: Yes Advance Directives Date on File: 04/19/21 Do you have thoughts of harming others: None Do you have a plan to hurt others: No Plan Recently lost weight without trying: Unsure Nutrition Risks: Poor intake 0-25% >4 days Patient : No service: No Current occupational status: retired Sexual orientation: Straight/Heterosexual Meds Allergies Allergy/AdvReac Type Severity Reaction Status Date / Time morphine AdvReac Severe Alternate Verified 09/27/21 10:25 mental status Active Medications: Current Medications Acetaminophen (Acetaminophen 325 Mg Tablet) 650 mg PO Q6H PRN PRN Reason: Headache/Pain Mild Scale (1-3) Al Hydroxide/Mg Hydroxide (Magnesium Hydrox/Alum Hydrox 30 Ml Oral.Susp) 30 ml PO Q6H PRN PRN Reason: Heartburn/Nausea Amlodipine Besylate (Amlodipine Besylate 10 Mg Tablet) 10 mg PO DAILY [facility]; Protocol Last Admin: 10/19/21 10:23 Dose: Not Given Apixaban (Apixaban 2.5 Mg Tablet) 2.5 mg PO BID [facility] Last Admin: 10/19/21 10:23 Dose: Not Given Atorvastatin Calcium (Atorvastatin Calcium 40 Mg Tablet) 40 mg PO BEDTIME [facility] Last Admin: 10/18/21 19:51 Dose: Not Given Calcitonin Mills (Calcitonin,Mills,Synth Nasal 3.7 Ml Bottle) 1 spray NOSTRILALT DAILY [facility] Last Admin: 10/19/21 10:23 Dose: Not Given Calcium Carbonate/Cholecalciferol (Calcium + Vitamin D 250 Mg Tablet) 250 mg PO DAILY [facility] Last Admin: 10/19/21 10:23 Dose: Not Given Digoxin (Digoxin 0.125 Mg Tablet) 0.125 mg PO [facility] Last Admin: 10/19/21 10:24 Dose: Not Given Donepezil HCl (Donepezil Hcl 5 Mg Tablet) 5 mg PO BEDTIME [facility] Last Admin: 10/18/21 19:52 Dose: Not Given Duloxetine HCl (Duloxetine Hcl 60 Mg Capsule.Dr) 60 mg PO BID [facility] Last Admin: 10/19/21 10:24 Dose: Not Given Hydroxyzine HCl (Hydroxyzine Hcl 25 Mg Tablet) 25 mg PO Q6H PRN PRN Reason: Anxiety Last Admin: 10/19/21 13:08 Dose: 25 mg Sodium Chloride (Ns) 1,000 mls @ 250 mls/hr IVCONT .Q4H [facility] Stop: 10/19/21 19:14 Magnesium Hydroxide (Milk Of Magnesia 30 Ml Oral.Susp) 30 ml PO DAILY PRN PRN Reason: Constipation Metoprolol Tartrate (Metoprolol Tartrate 100 Mg Tablet) 100 mg PO BID [facility]; Protocol Last Admin: 10/19/21 10:24 Dose: Not Given Mirtazapine (Mirtazapine 30 Mg Tablet) 30 mg PO DAILY [facility] Last Admin: 10/19/21 10:24 Dose: Not Given Risperidone (Risperidone 0.5 Mg Tablet) 0.5 mg PO BID [facility] Last Admin: 10/19/21 14:38 Dose: 0.5 mg Trazodone HCl (Trazodone Hcl 50 Mg Tablet) 50 mg PO BEDTIME PRN PRN Reason: Insomnia Last Admin: 10/13/21 20:01 Dose: 50 mg Home Medications Medication Instructions Recorded Confirmed Last Taken Type amlodipine 10 mg tablet 10 mg PO DAILY 03/16/20 10/20/21 03/30/21 History calcium carbonate 600 mg-vitamin 1 tab PO DAILY 09/07/20 10/20/21 03/30/21 History D3 20 mcg (800 unit) tablet (Caltrate with Vitamin D3) mirtazapine 15 mg tablet 15 mg PO BEDTIME 06/06/21 10/20/21 Unknown History Drizalma Sprinkle 20 mg ONCE 09/27/21 10/20/21 Unknown History clonazepam 0.5 mg tablet 0.5 tab PO BID ANXIETY 09/27/21 10/20/21 Unknown History quetiapine 25 mg tablet 0.5 - 1 tab PO BEDTIME 09/27/21 10/20/21 Unknown History quetiapine 25 mg tablet 0.5 - 1 tab PO BID PRN Anxiety 09/27/21 10/20/21 Unknown History Physical Exam Vital Signs and Narrative: Vital Signs: Last Vital Signs Temp 96.7 F L 10/18/21 18:00 Pulse 88 10/18/21 18:00 Resp 16 10/18/21 18:00 BP 148/74 H 10/18/21 18:00 Pulse Ox 96 10/18/21 18:00 O2 Del Method 10/18/21 18:00 BMI result Body Mass Index 17.0 Gen: agitated/delirious, unable to be reassured HEENT: sclera anicteric, moist mucus membranes Neck: supple Lungs: clear to auscultation bilaterally Heart: irregularly irregular, rapid, no murmurs Abd: soft, non-tender, non-distended Ext: no edema Skin: warm/well-perfused Neuro: alert/agitated, no gross focal motor deficit though exam limited by lack of cooperation Psych: impaired insight Results Labs CBC and Chem 7: 10/18/21 08:18 10/18/21 08:18 Assessment and Plan (1) Atrial fibrillation with rapid ventricular response: Status: Acute Plan 80yo F with AF, chronic HFpEF (50-55% February 2020), HTN, history of ocular melanoma, dementia, and history of encephalopathy who was admitted to the geriatric psychiatry unit on 09/28/21 with profound depression and weight loss. She was slowly improving on medication therapy but then yesterday stopped eating and drinking and today refused all of her medications and became extremely agitated. She is found to be in AF/RVR. # chronic AF with RVR - transfer to [facility], telemetry, Cardiology consultation, TTE, diltiazem infusion, LMWH while refusing oral intake # HTN - hold amlodipine while on diltaizem drip # depression - resume antidepressants when taking POs # VTE prophylaxis: LMWH # code status: DNR/DNI per MOL and confirmed with son Akil I anticipate that the patient will stay at least 2 midnights in hospital due to the above reasons. It is neither reasonable nor safe to care for them in a less acute setting. Quality Stroke Does the patient have a stroke diagnosis?: No VTE Prior VTE?: No VTE Risk Level:: Medical - moderate - high VTE Device Contraindication: N/A - Device Ordered VTE Drug Contraindication: N/A - Med Ordered
--- NOTE | 2021-10-19 15:26 | PM.PSYDC ---
DS: Providers Provider Date of Service: 10/19/21 Date of admission: 09/27/21 20:21 Date of discharge: 10/19/21 Primary care physician: Richard Ortiz MD Admitting clinician: Daryl Medina Attending physician on admission: Daryl Medina Consults: 10/19/21 12:43 Consult to Hospitalist Routine Consulting Provider: Hospitalist Reason For Exam: worsening confusion not eating drinking ? iv fluid Discharging clinician: Arsenio Britt DS: Diagnosis Discharge Diagnosis (1) Atrial fibrillation with rapid ventricular response: Status: Acute (2) Major depressive disorder, recurrent severe without psychotic features: Status: Acute (3) Dementia: Status: Acute DS: Medications Discharge Medications Home Medications: Home Medications Medication Instructions Recorded Confirmed amlodipine 10 mg tablet 10 mg PO DAILY 03/16/20 09/27/21 calcium carbonate 600 mg-vitamin 1 tab PO DAILY 09/07/20 09/27/21 D3 20 mcg (800 unit) tablet (Caltrate with Vitamin D3) mirtazapine 15 mg tablet 15 mg PO BEDTIME 06/06/21 09/27/21 Drizalma Sprinkle 20 mg ONCE 09/27/21 09/27/21 clonazepam 0.5 mg tablet 0.5 tab PO BID ANXIETY 09/27/21 09/27/21 quetiapine 25 mg tablet 0.5 - 1 tab PO BEDTIME 09/27/21 09/27/21 quetiapine 25 mg tablet 0.5 - 1 tab PO BID PRN Anxiety 09/27/21 09/27/21 Previous Rx's Medication Instructions Recorded metoprolol tartrate 100 mg tablet 100 mg PO BID 90 days #180 tabs 09/22/20 calcitonin (salmon) 200 1 spray intranasal (ALT) DAILY 04/03/21 unit/actuation nasal spray #3.7 mL apixaban 2.5 mg tablet (Eliquis) 2.5 mg PO BID 30 days #60 tabs 05/08/21 digoxin 125 mcg (0.125 mg) tablet 125 mcg PO TUWETHFR 90 days #52 07/03/21 tabs atorvastatin 40 mg tablet 40 mg PO BEDTIME #30 tabs 07/05/21 Mental Status Exam Mental Status Exam Narrative: Patient was wearing hospital garb seen in wheelchair yelling anxious agitated mood depressed severely anxious and agitated insight poor impulse control poor unable to communicate clearly Data Data Completed and Pending Completed studies during hospitalization [Text1]: 10/18/21 10/18/21 10/18/21 08:18 08:18 08:18 WBC 7.3 RBC 3.91 L Hgb 11.8 L Hct 35.2 L MCV 90.0 MCH 30.2 MCHC 33.5 RDW 14.3 Plt Count 178 MPV 11.9 Immature Gran % (Auto) 0.3 Neut % (Auto) 61.8 Lymph % (Auto) 31.6 Payne % (Auto) 4.9 Eos % (Auto) 1.0 Baso % (Auto) 0.4 Lymph # (Auto) 2.3 Payne # (Auto) 0.4 Eos # (Auto) 0.1 Baso # (Auto) 0.0 Abs Immat Gran (auto) 0.02 Absolute Neuts (auto) 4.5 Absolute Nucleated RBC 0.000 Nucleated RBC % (auto) 0.0 Sodium 140 Potassium 4.0 Chloride 103 Carbon Dioxide 28 Anion Gap 13 BUN 55 H D Creatinine 0.98 Estim Creat Clear Calc 29.1 Estimated GFR 54 Random Glucose 90 Estimat Average Glucose 108 Hemoglobin A1c % 5.4 Calcium 9.2 Total Bilirubin 0.2 Direct Bilirubin 0.2 AST 29 ALT 70 H Alkaline Phosphatase 65 Total Protein 5.6 L Albumin 3.4 L Triglycerides 57 Cholesterol 116 LDL Cholesterol, Calc 46 HDL Cholesterol 59 D TSH 2.80 10/05/21 Unknown Urine clean catch - Urine lao top Urine Culture - Final Imaging Diagnostic Imaging Impressions Head CT 10/03/21 11:57 IMPRESSION: There are scattered chronic small vessel ischemic changes primarily involving the periventricular white matter, basal ganglia, and thalami. Grossly no evidence of acute territorial infarct or hemorrhage. 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 According to the chart, and the report of her son, after COVID 19 bandemia started the patient started feeling more depressed with lack of energy, depressed mood, increased anxiety, poor appetite and poor sleep. She had several trials of SSRIs with poor response as an outpatient. Her daughter used to be the primary caregiver and she commit suicide a few weeks ago. According to her relatives, the patient has lost 30 lb, she is depressed with lack of energy, anhedonia feelings of hopelessness and passive suicidal ideation. Also she has failed to take care of her ADL less. She was assessed by crisis and transferring to this facility for psychiatric stabilization. On interview the patient was lying on her bed, confused, refusing to participate in the interview since she was feeling very tired. She admitted depressed mood, anhedonia, lack of energy, feelings of hopelessness and worthlessness. She currently denies auditory hallucinations or any psychotic symptoms.. Past Psychiatric History: No prior psychiatric admissions, as per the chart, she was seen as an outpatient and they have tried SSRIs in the past. 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 Her primary caregiver was her daughter who committed suicide a few weeks ago Substance History: Denies, as per the chart no evidence of substance abuse Trauma History: Unknown, the patient refused to elaborate Diagnostics Vital Signs (24Hr): Vital Signs - 24 hr 09/27/21 16:33 09/27/21 20:00 09/27/21 20:50 Temperature 97.8 F 97 F Pulse Rate 113 H 88 Respiratory Rate 18 16 14 Blood Pressure 151/72 H 147/66 H Pulse Oximetry 96 98 Oxygen Delivery Method Room Air Room Air 09/28/21 06:00 Temperature 98 F Pulse Rate 97 Respiratory Rate 17 Blood Pressure 110/67 Pulse Oximetry 96 Oxygen Delivery Method Room Air BMI result Body Mass Index 16.5 Labs Results: 09/27/21 10:36 document embedded image 09/28/21 07:53 document embedded image Labs: Laboratory Results - last 48 hr 09/27/21 09/27/21 09/27/21 10:36 10:36 13:02 WBC 8.2 RBC 4.41 Hgb 13.6 Hct 40.4 MCV 91.6 MCH 30.8 MCHC 33.7 RDW 13.9 Plt Count 236 MPV 11.3 Immature Gran % (Auto) 0.4 Neut % (Auto) 72.2 Lymph % (Auto) 22.8 Payne % (Auto) 3.9 Eos % (Auto) 0.2 Baso % (Auto) 0.5 Lymph # (Auto) 1.9 Payne # (Auto) 0.3 Eos # (Auto) 0.0 Baso # (Auto) 0.0 Abs Immat Gran (auto) 0.03 Absolute Neuts (auto) 5.9 Absolute Nucleated RBC 0.000 Nucleated RBC % (auto) 0.0 Sodium 146 H Potassium 3.8 Chloride 108 Carbon Dioxide 25 Anion Gap 17 BUN 32 H Creatinine 1.37 Estim Creat Clear Calc 20.4 Estimated GFR 37 Random Glucose 116 H Fasting Glucose Calcium 9.8 Total Bilirubin 0.9 Direct Bilirubin 0.4 AST 21 ALT 41 H Alkaline Phosphatase 78 D Total Protein 6.8 Albumin 4.1 Triglycerides Cholesterol LDL Cholesterol, Calc HDL Cholesterol Urine Color Urine Appearance Urine pH Ur Specific [place] Urine Protein Urine Glucose (UA) Urine Ketones Urine Blood Urine Nitrite Ur Leukocyte Esterase Urine Opiates Screen Urine Fentanyl Screen Ur Barbiturates Screen Ur Phencyclidine Scrn Ur Amphetamines Screen U Benzodiazepines Scrn Urine Cocaine Screen U Marijuana (THC) Screen COVID-19 (KYLEE) Negative COVID-19 Clin Com See Note 09/27/21 09/27/21 09/28/21 14:41 14:41 07:53 WBC RBC Hgb Hct MCV MCH MCHC RDW Plt Count MPV Immature Gran % (Auto) Neut % (Auto) Lymph % (Auto) Payne % (Auto) Eos % (Auto) Baso % (Auto) Lymph # (Auto) Payne # (Auto) Eos # (Auto) Baso # (Auto) Abs Immat Gran (auto) Absolute Neuts (auto) Absolute Nucleated RBC Nucleated RBC % (auto) Sodium 144 Potassium 4.0 Chloride 109 H Carbon Dioxide 21 L Anion Gap 18 BUN 32 H Creatinine 0.97 Estim Creat Clear Calc 28.8 Estimated GFR 55 Random Glucose Fasting Glucose 62 Calcium 9.4 Total Bilirubin 1.0 Direct Bilirubin AST 21 ALT 35 H Alkaline Phosphatase 63 Total Protein 6.4 L Albumin 3.9 Triglycerides 101 Cholesterol 139 LDL Cholesterol, Calc 73 HDL Cholesterol 46 Urine Color YELLOW Urine Appearance HAZY Urine pH 5.5 Ur Specific [place] >= 1.030 H Urine Protein NEG Urine Glucose (UA) NEG Urine Ketones 5 Urine Blood NEG Urine Nitrite NEG Ur Leukocyte Esterase NEG Urine Opiates Screen Not Detected Urine Fentanyl Screen Not Detected Ur Barbiturates Screen Not Detected Ur Phencyclidine Scrn Not Detected Ur Amphetamines Screen Not Detected U Benzodiazepines Scrn Not Detected Urine Cocaine Screen Not Detected U Marijuana (THC) Screen Not Detected COVID-19 (KYLEE) COVID-19 Clin Com Meds/Allergies Meds Home Medications Medication Instructions Recorded Confirmed Type amlodipine 10 mg tablet 10 mg PO DAILY 03/16/20 09/27/21 History calcium carbonate 600 mg-vitamin 1 tab PO DAILY 09/07/20 09/27/21 History D3 20 mcg (800 unit) tablet (Caltrate with Vitamin D3) mirtazapine 15 mg tablet 15 mg PO BEDTIME 06/06/21 09/27/21 History Drizalma Sprinkle 20 mg ONCE 09/27/21 09/27/21 History clonazepam 0.5 mg tablet 0.5 tab PO BID ANXIETY 09/27/21 09/27/21 History quetiapine 25 mg tablet 0.5 - 1 tab PO BEDTIME 09/27/21 09/27/21 History quetiapine 25 mg tablet 0.5 - 1 tab PO BID PRN Anxiety 09/27/21 09/27/21 History Allergies Allergies Allergy/AdvReac Type Severity Reaction Status Date / Time morphine AdvReac Severe Alternate Verified 09/27/21 10:25 mental status Mental Status Exam Mental Status Exam Patient Appearance: Appropriate Patient Orientation: Person Level of Consciousness: Disoriented and Obtunded Patient Behavior: Guarded and Passive Mood Description: Withdrawn Affect Description: Blunted Patient Cognition Impaired: Yes Ability to Follow Directions: Fair Speech Pattern: Monotone Hallucinations: None Delusions: Not Present Thought Process: Distracted Depressive Symptoms: Increased Anxiety, Insomnia and Increased Irritability Judgement: Poor Assessment & Plan Assessment & Plan (1) Delusion: Status: Acute Code(s): 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 She recently have several losses such as the suicide of her daughter who was the primary caregiver. At this moment the patient has a UTI, failure to thrive weight loss and inability to take care of herself. Plan 1. Gather collateral information. 2. Continue Remeron. 3. Continue medical workup Patient educated on: diagnosis and medication risk/benefits Informed Consent: further education needed Reason for continued inpatient stay Substantial Risk for: harm to self, inability to function, rapid decompensation and med/psych decompensation Hospital course See above for psychiatric admission note. [facility] she was noted to be severely depressed history of atrial fibrillation MRI revealed microvascular changes of the brain. The patient remains severely depressed needed help with ADLs encouragement to eat and drink. She also intermittently would not take her medications this was problematic particularly given the fact that she had history of atrial fibrillation and was also on anticoagulants. Patient was on Cymbalta 60 mg twice a day mirtazapine and Risperdal for severe depression. There was consideration of referral to a long-term facility. Her son is her activated healthcare proxy. Patient would discuss intermittently multiple losses in her life including her and daughter it is unclear how long the patient had been clinically depressed and was unclear how the patient had been doing cognitively over time. The patient began despite encouragement not regularly taking in food and fluids. A consult was placed to the hospitalist service on the morning of 825 in case reviewed with Dr. Acosta. Initially we discussed intravenous fluids to maintain hydration and kidney function and blood pressure the patient's vital signs that morning were 122/72 pulse is 80 for later in the day the patient became more agitated was noted to be in rapid AFib in the 150s and was transferred to the [facility]. Patient was restless yelling agitated not processing information at the time of transfer. Discussion was held regarding needing to give medication IV for the patient's atrial fibrillation. All discussion was also held with Dr. Acosta at that time about the possibility of ECT given patient's inconsistent eating drinking and med compliance Status at Discharge Functional status at discharge: uses cane/walker Overall status at discharge: patient is not back to baseline Time Spent with Patient Time attestation: Total time spent providing and/or coordinating discharge services: Time spent: Greater than 30 minutes Discharge Plan Discharge Patient Disposition: Xfer Other Discharge Diagnosis: rapid afib dementia depression Referrals: EMELY Guallpa [Other] - 1 Week (Appt scheduled for ) Richard Ortiz MD [Primary Care Provider] - 1 Week Discharge Medications: No Action metoprolol tartrate 100 mg tablet 100 mg PO BID 90 Days Qty: 180 3RF Eliquis 2.5 mg tablet 2.5 mg PO BID 30 Days Qty: 60 5RF digoxin 125 mcg (0.125 mg) tablet 125 mcg PO TUWETHFR 90 Days Qty: 52 3RF Rx Instructions: Please call and schedule an appt atorvastatin 40 mg tablet 40 mg PO BEDTIME Qty: 30 5RF calcium carbonate-vitamin D3 [Caltrate with Vitamin D3] 600 mg(1,500mg) -800 unit Tablet 1 tab PO DAILY clonazepam 0.5 mg Tablet 0.25 mg PO BID Qty: 0 0RF duloxetine 30 mg Capsule,Delayed Release(Dr/Ec) 30 mg PO BID Qty: 1 0RF fluoxetine 20 mg/5 mL (4 mg/mL) Solution 10 mg PO DAILY PRN (Reason: if pt refuses duloxetine) Qty: 250 0RF olanzapine 2.5 mg Tablet 2.5 mg PO BEDTIME Qty: 30 0RF amlodipine 10 mg tablet 10 mg PO DAILY mirtazapine 15 mg tablet 15 mg PO BEDTIME Discharge Orders: Discharge Order (Routine); Ordered 10/19/21 Ordered By: Arsenio Britt Diet: per [facility] Activity on Discharge: per [facility] Stand Alone Forms: Patient Portal Discharge page, Community Support Care Plan Goals: STABILIZE ATRIAL FIBRILLATION WITH RAPID VENTRICULAR RESPONSE THEN TRANSFER BACK TO PSYCHIATRIC UNIT Health Concerns: rapid nolvia fib depression dementia Plan of Treatment: transfer im for stabilization dehydration deondre topete Assessment: medically unstable transfer to [facility] floor Discharge Date/Time: 10/19/21 18:58
--- NOTE | 2021-10-19 15:35 | PC.NURSE ---
Pt becoming increasingly agitated throughout today, pt seen by hospitalist, EKG taken with finding of A-FIB with other findings (please see EKG). Orders given to transfer to [facility].
[2021-10-19 16:31] LABS: Magnesium 1.8 mg/dL (1.6-2.6)
[2021-10-19 16:37] LABS: B Type Natriuretic Peptide 407 pg/mL (<100); Troponin-I High Sensitivity 15.1 ng/L (<3.5-17.0)
[2021-10-19 16:52] LABS: TSH reflex Free T4 5.14 uIU/mL (0.32-4.0)
[2021-10-19 17:30] LABS: Free T4 (Free Thyroxine) 1.11 ng/dL (0.71-1.85)
== END 2021-10-19 18:58 | disposition other institution (70) | DRG 881 ==
LOC: HO.ED 15:10 → HO.PGERI 20:25
PROVIDERS: Family Medicine; Registered Nurse; Admitting Provider Psychiatry & Neurology Psychiatry; Emergency Provider Emergency Medicine; PCP Internal Medicine; Visit Provider Psychiatry & Neurology Psychiatry
DX: F32.9 Major depressive disorder, single episode, unspecified (principal); I50.32 Chronic diastolic (congestive) heart failure; N39.0 Urinary tract infection, site not specified; F05 Delirium due to known physiological condition; F22 Delusional disorders; F41.9 Anxiety disorder, unspecified; I48.91 Unspecified atrial fibrillation; F03.90 Unspecified dementia, unspecified severity, without behavioral disturbance, psychotic disturbance, mood disturbance, and anxiety; I11.0 Hypertensive heart disease with heart failure; Z20.822 Contact with and (suspected) exposure to COVID-19; Z88.5 Allergy status to narcotic agent; Z79.01 Long term (current) use of anticoagulants; Z79.899 Other long term (current) drug therapy
CPT/HCPCS: 36415; 70450; 71045; 80048; 80053; 80061; 80076; 80307; 81001; 81003; 83036; 83735; 83880; 84439; 84443; 84484; 85025; 87086; 87635; 90870; 93005; 93971; 99285; J0330; J2250; J2405

== ENCOUNTER 2021-10-19 15:16 | Inpatient (IN) | payer MEDICARE, OTHER, SELFPAY ==
[2021-10-19] MEDS: 0.9 % Sodium Chloride 1,000 ML 100 ML IVCONT (20:30)
[2021-10-19] MEDS: Enoxaparin Sodium 40 MG/0.4 ML SYRINGE SUBCUT (20:42)
[2021-10-19 20:54] LABS: Glucose, Whole Blood 110 mg/dL (60-115)
[2021-10-19 20:57] VITALS: BP 140/69; PULSE 94; RESP 16; TEMP 36.4; O2SAT 98
--- NOTE | 2021-10-19 21:28 | PM.EVENT ---
Event Note Date of Service: 10/19/21 Event Note: pt HR in the 80s in A fib. will place cardizem drip on hold. will start her on metoprolol 12.5 BID
[2021-10-19] MEDS: Metoprolol Tartrate 12.5 MG HALFTAB PO (21:53)
[2021-10-19 23:26] VITALS: BP 133/62; PULSE 88; RESP 18; TEMP 37.1; O2SAT 96
[2021-10-19 23:55] VITALS: BMI 18.1
--- NOTE | 2021-10-20 03:30 | PC.NURSE ---
at [address] Singh notified pts HR IN 80 's afib. order to hold cardizem drip for now. metoprolol po given as ordered 12.5 mg
--- NOTE | 2021-10-20 04:57 | PC.NURSE ---
pt refused compression stockings she got very agitated when trying to place them on. she is on lovenox .
[2021-10-20 08:36] LABS: Alanine Aminotransferase 53 U/L (0-31); Albumin Level 3.3 g/dL (3.5-5.0); Alkaline Phosphatase 61 U/L (39-117); Anion Gap 15 (12-20); Aspartate Amino Transferase 27 U/L (5-31); Bilirubin Total 0.8 mg/dL (0.0-1.0); Blood Urea Nitrogen 30 mg/dL (9-16); Calcium 8.8 mg/dL (8.4-10.2); Carbon Dioxide 26 mmol/L (22-29); Chloride 105 mmol/L (96-108); Creatinine Clr Calc Pharmacy 36.6; Estimated Glomerular Filt Rate > 60; Glucose Random 82 mg/dL (60-115); Potassium 3.8 mmol/L (3.3-5.1); Sodium 142 mmol/L (135-145); Total Protein 5.5 g/dL (6.5-8.0); Troponin-I High Sensitivity 16.5 ng/L (<3.5-17.0)
[2021-10-20] MEDS: 0.9 % Sodium Chloride Flush 3 ML SYRINGE IVFLUSH ×2 (09:27→17:05)
--- NOTE | 2021-10-20 09:31 | PHA.MEDREC ---
med rec complete, patient transferred from psych floor. Updated med rec based on medical record discharge summary Pharmacy Consult ? Medication Reconciliation Pharmacy has completed the medication reconciliation.
--- NOTE | 2021-10-20 10:23 | MHC.CM.PN ---
attempted to meet with pt who has a sitter called and spoke with pts so who explins that pt lives withhim since the of his nsister in june..pt is actiove with [facility] ,has [facility] that provides counseling for pt ,and he hires a private person who stays with pt when he is working in the daytime ,,he has been working with [facility] where he plans on pt going when dcd he has already [place] with admissions there if accepted she would be first person admitted if apt is not ready for pt she would go to [facility] for str..additionally he has spoke with the [facility] [place] plan str vs assisted living hcp has been invoked ,.pt is chelsy ocampo x 3
--- NOTE | 2021-10-20 11:36 | P.PNIM_ITS ---
Subjective Subjective Date of Service: 10/20/21 Interval History: persistent AF, 80s-100s, currently up to 110 refusing oral intake refusing oral meds Review of Systems Review of Systems: Yes Unobtainable due to mental status Physical Exam Vital Signs: Vital Signs: Last Vital Signs Temp 98.7 F 10/19/21 23:26 Pulse 88 10/19/21 23:26 Resp 18 10/19/21 23:26 BP 133/62 10/19/21 23:26 Pulse Ox 96 10/19/21 23:26 O2 Del Method 10/19/21 23:26 BMI result Body Mass Index 18.1 Gen: withdrawn, minimally verbal HEENT: sclera anicteric, moist mucus membranes Neck: supple Lungs: clear to auscultation bilaterally Heart: irregularly irregular Abd: soft, non-tender, non-distended Ext: no edema Skin: warm/well-perfused Neuro: alert, uncooperative with examination Psych: extremely restricted affect Objective Data Active Medications Acetaminophen (Acetaminophen 325 Mg Tablet) 650 mg PO Q6H PRN PRN Reason: Pain, Mild (Pain Scale 1-3) Atorvastatin Calcium (Atorvastatin Calcium 40 Mg Tablet) 40 mg PO BEDTIME [facility] Clonazepam (Clonazepam 0.5 Mg Tablet) 0.25 mg PO BID [facility] Digoxin (Digoxin 0.125 Mg Tablet) 0.125 mg PO COUNTS INCLUDE 234 BEDS AT THE [facility] Last Admin: 10/20/21 11:01 Dose: Not Given Documented By: NAYE Non-Admin Reason: Patient Refused Enoxaparin Sodium (Enoxaparin Sodium 40 Mg/0.4 Ml Syringe) 40 mg SUBCUT Q24H COUNTS INCLUDE 234 BEDS AT THE [facility] Last Admin: 10/19/21 20:42 Dose: 40 mg Documented By: GEOVANI Comments: PT JUST CAME TO FLOOR Diltiazem HCl 125 mg/ Sodium (Chloride) 125 mls @ 0 mls/hr IVCONT .Q0M COUNTS INCLUDE 234 BEDS AT THE [facility]; Protocol Metoprolol Tartrate (Metoprolol Tartrate 5 Mg/5 Ml Vial) 5 mg IVPUSH Q6H [facility] Mirtazapine (Mirtazapine 15 Mg Tablet) 15 mg PO BEDTIME [facility] Ondansetron HCl (Ondansetron Hcl 4 Mg/2 Ml Vial) 4 mg IVPUSH Q8H PRN PRN Reason: Nausea and Vomiting Quetiapine Fumarate (Quetiapine Fumarate 25 Mg Tablet) 12.5 - 25 mg PO BEDTIME [facility] Quetiapine Fumarate (Quetiapine Fumarate 25 Mg Tablet) 12.5 - 25 mg PO BID PRN PRN Reason: Anxiety Sodium Chloride (0.9 % Sodium Chloride Flush 3 Ml Syringe) 3 ml IVFLUSH QSHIFT [facility] Last Admin: 10/20/21 09:27 Dose: 3 ml Documented By: NAYE Labs CBC & Chem 7: 10/20/21 08:09 Labs: Laboratory Results - last 24 hr 10/19/21 10/20/21 20:50 08:09 Anion Gap 15 Estim Creat Clear Calc 36.6 Estimated GFR > 60 POC Glucose 110 Random Glucose 82 Calcium 8.8 Total Bilirubin 0.8 AST 27 ALT 53 H Alkaline Phosphatase 61 Total Protein 5.5 L Albumin 3.3 L Assessment and Plan (1) Atrial fibrillation with rapid ventricular response: Status: Acute [facility] d#2 80yo F with AF, chronic HFpEF (50-55% February 2020), HTN, history of ocular melanoma, dementia, and history of encephalopathy who was admitted to the eriatric psychiatry unit on 09/28/21 with profound depression and weight loss.? She was slowly improving on medication therapy but then on 10/18/21 stopped eating and drinking and on 10/19/21refused all of her medications and became extremely agitated.? She was found to be in AF/RVR with rate of 160, so she was transferred to the [facility]. # chronic AF with RVR - refusing PO digoxin + metoprolol. will give IV metoprolol. - refusing apixaban. will give renally dosed SQ enoxaparin. - Cardiology consult - TTE # HTN - d/c amlodipine; IV metoprolol as above # depression with anorexia - resume antidepressants when taking POs; Psych consultation - IV maintenance fluids, periodic electrolyte monitoring # VTE prophylaxis: LMWH In my clinical judgment, the patient requires continued hospitalization for the following reasons: refusing POs, rate control, profound depression Quality Stroke Does the patient have a stroke diagnosis?: No VTE Prior VTE?: No VTE Risk Level:: Medical - moderate - high VTE Device Contraindication: N/A - Device Ordered VTE Drug Contraindication: N/A - Med Ordered
[2021-10-20 11:44] VITALS: PULSE 109
[2021-10-20 11:47] VITALS: BP 119/70; PULSE 116; RESP 20; TEMP 36.7; O2SAT 96
[2021-10-20] MEDS: Dextrose 5 % and 0.45 % NaCl 1,000 ML 80 ML IVCONT ×2 (12:11→23:13)
[2021-10-20] MEDS: Metoprolol Tartrate 5 MG/5 ML VIAL IVPUSH ×3 (12:11→23:13)
[2021-10-20 12:56] VITALS: PULSE 80
--- NOTE | 2021-10-20 13:12 | PC.NURSE ---
pt refused all meds today. As a result, heart rate was in 110s. notified. Order for IVP metoprolol received and medication administered. HR now in 80s.
[2021-10-20 15:43] VITALS: BP 176/84; PULSE 119; RESP 18; TEMP 36.6; O2SAT 96
[2021-10-20 16:26] VITALS: BMI 18.1
[2021-10-20] MEDS: Enoxaparin Sodium 40 MG/0.4 ML SYRINGE SUBCUT (17:06)
--- NOTE | 2021-10-20 17:22 | P.PNPSI_ITS ---
Subjective Subjective Date of Service: 10/20/21 Reason For Visit: AF/RVR/severe depression Interim History: The patient is an 80-year-old female case reviewed hospitalist service Dr. Acosta was transferred to the medical floor with rapid atrial fibrillation. Patient has been intermittently refusing p.o. medications. Severely depressed withdrawn intermittently talks about not wanting to live she is on one-to-one on the medical floor she is receiving IV fluids and not consistently taking p.o. medications. getting iv metoprolol mostly mute Medication Compliance: Intermittent Mental Status Exam Mental Status Exam Patient Appearance: Disheveled Patient Orientation: Person Level of Consciousness: Drowsy Patient Behavior: Suspicious Mood Description: Constricted and Depressed Affect Description: Calm Patient Cognition Impaired: Yes Ability to Follow Directions: Good Speech Pattern: Clear Hallucinations: None Delusions: Not Present Thought Process: Intact Thought Content: positive for Circumstantial Depressive Symptoms: Increased Anxiety Abnormal Motor Activity Signs and Symptoms: Psychomotor Retardation Judgement: Poor Diagnostics Vital Signs (24Hr): Vital Signs - 24 hr 10/19/21 20:57 10/19/21 23:26 10/20/21 11:44 Temperature 97.6 F 98.7 F Pulse Rate 94 88 109 H Respiratory Rate 16 18 Blood Pressure 140/69 H 133/62 Pulse Oximetry 98 96 Oxygen Delivery Method Room Air Room Air 10/20/21 11:47 10/20/21 12:56 10/20/21 15:43 Temperature 98.0 F 97.8 F Pulse Rate 116 H 80 119 H Respiratory Rate 20 18 Blood Pressure 119/70 176/84 H Pulse Oximetry 96 96 Oxygen Delivery Method Room Air Room Air BMI result Body Mass Index 18.1 Labs Results: 10/21/21 05:54 Labs: Laboratory Results - last 48 hr 10/19/21 10/20/21 10/20/21 20:50 08:09 08:09 Sodium 142 Potassium 3.8 Chloride 105 Carbon Dioxide 26 Anion Gap 15 BUN 30 H Creatinine 0.80 Estim Creat Clear Calc 36.6 Estimated GFR > 60 POC Glucose 110 Random Glucose 82 Calcium 8.8 Total Bilirubin 0.8 AST 27 ALT 53 H Alkaline Phosphatase 61 Troponin I High Sens 16.5 Total Protein 5.5 L Albumin 3.3 L Medications Medications Current Medications Acetaminophen (Acetaminophen 325 Mg Tablet) 650 mg PO Q6H PRN PRN Reason: Pain, Mild (Pain Scale 1-3) Atorvastatin Calcium (Atorvastatin Calcium 40 Mg Tablet) 40 mg PO BEDTIME [facility] Clonazepam (Clonazepam 0.5 Mg Tablet) 0.25 mg PO BID [facility] Digoxin (Digoxin 0.125 Mg Tablet) 0.125 mg PO [facility] Last Admin: 10/20/21 11:01 Dose: Not Given Enoxaparin Sodium (Enoxaparin Sodium 40 Mg/0.4 Ml Syringe) 40 mg SUBCUT Q24H [facility] Last Admin: 10/20/21 17:06 Dose: 40 mg Haloperidol Lactate (Haloperidol Lactate 5 Mg/Ml Vial) 0.5 mg IVPUSH Q8H PRN PRN Reason: severe agitation Diltiazem HCl 125 mg/ Sodium (Chloride) 125 mls @ 0 mls/hr IVCONT .Q0M [facility]; Protocol Dextrose/Sodium Chloride (D51/2ns) 1,000 mls @ 80 mls/hr IVCONT .[id number] [facility] Last Admin: 10/20/21 12:11 Dose: 80 mls/hr Metoprolol Tartrate (Metoprolol Tartrate 5 Mg/5 Ml Vial) 5 mg IVPUSH Q6H [facility] Last Admin: 10/20/21 17:06 Dose: 5 mg Mirtazapine (Mirtazapine 15 Mg Tablet) 15 mg PO BEDTIME [facility] Ondansetron HCl (Ondansetron Hcl 4 Mg/2 Ml Vial) 4 mg IVPUSH Q8H PRN PRN Reason: Nausea and Vomiting Quetiapine Fumarate (Quetiapine Fumarate 25 Mg Tablet) 12.5 - 25 mg PO BEDTIME [facility] Quetiapine Fumarate (Quetiapine Fumarate 25 Mg Tablet) 12.5 - 25 mg PO BID PRN PRN Reason: Anxiety Sodium Chloride (0.9 % Sodium Chloride Flush 3 Ml Syringe) 3 ml IVFLUSH QSHIFT [facility] Last Admin: 10/20/21 17:05 Dose: 3 ml Allergies Allergies Allergy/AdvReac Type Severity Reaction Status Date / Time morphine AdvReac Severe Alternate Verified 09/27/21 10:25 mental status Assessment & Plan Assessment & Plan (1) Atrial fibrillation with rapid ventricular response: Status: Acute Code(s): I48.91 - Unspecified atrial fibrillation Plan hospital d#2 80yo F with AF, chronic HFpEF (50-55% February 2020), HTN, history of ocular melanoma, dementia, and history of encephalopathy who was admitted to the [facility] psychiatry unit on 09/28/21 with profound depression and weight loss.? She was slowly improving on medication therapy but then on 10/18/21 stopped eating and drinking and on 10/19/21refused all of her medications and became extremely agitated.? She was found to be in AF/RVR with rate of 160, so she was transferred [place] [facility] # chronic AF with RVR - refusing PO digoxin + metoprolol. will give IV metoprolol. - refusing apixaban. will give renally dosed SQ enoxaparin. - Cardiology consult - TTE # HTN - d/c amlodipine; IV metoprolol as above # depression with anorexia - resume antidepressants when taking POs; Psych consultation - IV maintenance fluids, periodic electrolyte monitoring # VTE prophylaxis: LMWH In my clinical judgment, the patient requires continued hospitalization for the following reasons: refusing POs, rate control, profound depression 10/20/21 encourage po meds strongly consuder ect case reviewed with hospitalist I spent minutes with the patient and/or on the patient floor today, greater than?50% of which was spent counseling/coordinating care. Reason for contiued inpatient stay Substantial Risk for: harm to self, inability to function and med/psych de compensation
[2021-10-20] MEDS: Haloperidol Lactate 5 MG/ML VIAL IVPUSH (18:01)
--- NOTE | 2021-10-20 18:30 | PM.PSYCN ---
History of Present Illness Date of Service: 10/20/2021 Chief Complaint: AF/RVR/severe depression Reason for Consult: medication Requesting physician: Irina Acosta Sources of Information: patient interviewed and chart reviewed HPI Narrative: Stephany is an 80yo female who carries a dx of dementia, Depression, Anxiety, and Delusional Disorder. She has co-morbid AF, chronic HFpEF, HTN, history of ocular melanoma, and history of encephalopathy. Pt was admitted to the geriatric psychiatry unit on 09/28/21 with worsening depression after her daughter, her primary caregiver, committed suicide a few weeks prior. She also lost her in January 2021.? She came in with worsening lethargy, insomnia, and a 30 lb weight loss from poor PO intake. Over course of hospitalization, pt was started on duloxetine, mirtazapine, risperidone, and donepezil and has gained 5 lb. However, 10/18/21, she quite suddenly stopped eating and drinking and 10/19/21 refused all of her medications. Pt was presenting with increased confusion and agitation and found to have AF with RVR in the 150s. She was admitted to [facility] [place] 10/19/21 for further workup. Cardiology consult placed and pt started on metoprolol. Pt has HCP (her son) invoked since 10/18/21, lacks capacity. Psych consult placed for medication management, as pt is refusing PO medication. I evaluated the pt this evening and upon interview she reports ?You people did me bad, you took all my taxes from me,? tells T/W ?you just threw away my taxes.? Per her 1:1 she has been ?really upset about her taxes.? Pt remains agitated, delusional, and confused. Not able to participate in meaningful conversation. Past Psychiatric History: No prior psychiatric admissions, as per the chart, she was seen as an outpatient and they have tried SSRIs in the past. 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 Her primary caregiver was her daughter who committed suicide a few weeks ago Trauma History: Unknown, the patient refused to elaborate Diagnostics Vital Signs (24Hr): Vital Signs - 24 hr 10/19/21 20:57 10/19/21 23:26 10/20/21 11:44 Temperature 97.6 F 98.7 F Pulse Rate 94 88 109 H Respiratory Rate 16 18 Blood Pressure 140/69 H 133/62 Pulse Oximetry 98 96 Oxygen Delivery Method Room Air Room Air 10/20/21 11:47 10/20/21 12:56 10/20/21 15:43 Temperature 98.0 F 97.8 F Pulse Rate 116 H 80 119 H Respiratory Rate 20 18 Blood Pressure 119/70 176/84 H Pulse Oximetry 96 96 Oxygen Delivery Method Room Air Room Air BMI result Body Mass Index 18.1 Labs Results: 10/20/21 08:09 Labs: Laboratory Results - last 48 hr 10/19/21 10/20/21 10/20/21 20:50 08:09 08:09 Sodium 142 Potassium 3.8 Chloride 105 Carbon Dioxide 26 Anion Gap 15 BUN 30 H Creatinine 0.80 Estim Creat Clear Calc 36.6 Estimated GFR > 60 POC Glucose 110 Random Glucose 82 Calcium 8.8 Total Bilirubin 0.8 AST 27 ALT 53 H Alkaline Phosphatase 61 Troponin I High Sens 16.5 Total Protein 5.5 L Albumin 3.3 L Mental Status Exam Mental Status Exam Narrative: Alert but not oriented. Poor eye contact, inattentive. No Tics or Tremors. No abnormal involuntary movements. Agitated, suspicious, not engaged. Non-pressured speech, spontaneous with regular rate and rhythm, normal volume and prosody. No prolonged speech latency or dysarthria. Unable to assess mood. Affect is anxious. No imminent safety concerns. Thoughts are ruminative, paranoid. Has memory impairment. Insight/ Judgment poor. Medications Medications Current Medications Acetaminophen (Acetaminophen 325 Mg Tablet) 650 mg PO Q6H PRN PRN Reason: Pain, Mild (Pain Scale 1-3) Atorvastatin Calcium (Atorvastatin Calcium 40 Mg Tablet) 40 mg PO BEDTIME [facility] Clonazepam (Clonazepam 0.5 Mg Tablet) 0.25 mg PO BID [facility] Digoxin (Digoxin 0.125 Mg Tablet) 0.125 mg PO [facility] Last Admin: 10/20/21 11:01 Dose: Not Given Duloxetine HCl (Duloxetine Hcl 30 Mg Capsule.Dr) 30 mg PO BID [facility] Enoxaparin Sodium (Enoxaparin Sodium 40 Mg/0.4 Ml Syringe) 40 mg SUBCUT Q24H [facility] Last Admin: 10/20/21 17:06 Dose: 40 mg Fluoxetine HCl (Fluoxetine Hcl Oral Solution 20 Mg/5 Ml Solution) 10 mg PO DAILY PRN PRN Reason: if pt refuses duloxetine Haloperidol Lactate (Haloperidol Lactate 5 Mg/Ml Vial) 0.5 mg IVPUSH Q8H PRN PRN Reason: severe agitation Last Admin: 10/20/21 18:01 Dose: 0.5 mg Diltiazem HCl 125 mg/ Sodium (Chloride) 125 mls @ 0 mls/hr IVCONT .Q0M [facility]; Protocol Dextrose/Sodium Chloride (D51/2ns) 1,000 mls @ 80 mls/hr IVCONT .[id number] [facility] Last Admin: 10/20/21 12:11 Dose: 80 mls/hr Metoprolol Tartrate (Metoprolol Tartrate 5 Mg/5 Ml Vial) 5 mg IVPUSH Q6H [facility] Last Admin: 10/20/21 17:06 Dose: 5 mg Mirtazapine (Mirtazapine 15 Mg Tablet) 15 mg PO BEDTIME [facility] Olanzapine (Olanzapine 2.5 Mg Tablet) 2.5 mg PO BEDTIME [facility] Ondansetron HCl (Ondansetron Hcl 4 Mg/2 Ml Vial) 4 mg IVPUSH Q8H PRN PRN Reason: Nausea and Vomiting Sodium Chloride (0.9 % Sodium Chloride Flush 3 Ml Syringe) 3 ml IVFLUSH QSHIFT [facility] Last Admin: 10/20/21 17:05 Dose: 3 ml Allergies Allergies Allergy/AdvReac Type Severity Reaction Status Date / Time morphine AdvReac Severe Alternate Verified 09/27/21 10:25 mental status Assessment & Plan Assessment & Plan (1) Major depressive disorder: Status: Acute Code(s): F32.9 - Major depressive disorder, single episode, unspecified Plan Plan: -I discussed case with pt?s team. She has already had a swallowing eval bedside while on [facility], no sialorrhea or cough noted. Per [facility] team, pt is adherent with PO meds when crushed and put in applesauce or ice cream- may continue this on [facility]. Per staff attorney on [facility], pt has been agitated, yelling, confused, difficult to redirect, and continues to refuse interventions or PO meds. She received IV haldol 0.5 Q8H PRN with minimal effect. Per her 1:1 sitter, pt ate a couple bites of turkey and mashed potatoes and sips of water.? -Discussed case with Dr. Britt, psych manager medical device, for medication adjustments. Will decrease duloxetine to 30 mg BID due to possible exacerbation in agitation. If pt refuses, she may take liquid fluoxetine 10 mg daily to prevent withdrawal effects off SNRI. Will discontinue seroquel 12.5-25 mg QHS and start olanzapine 2.5 mg at bedtime to target delusional sx, anxiety.? -Recommend pt return to [facility] unit upon medical clearance due to tx refractory depression, anxiety, may consider ECT if appropriate.? I have shared this with Dr. Irina Acosta. Thank you for this consultation. If you have any questions or concerns, please do not hesitate to contact psychiatry service. I spent minutes with the patient and/or on the patient floor today, greater than?50% of which was spent counseling/coordinating care. Patient educated on: diagnosis, medication risk/benefits and therapeutic strategies
[2021-10-20 19:46] VITALS: BP 131/80; PULSE 117; RESP 18; TEMP 36.8; O2SAT 95
[2021-10-20] MEDS: OLANZapine 2.5 MG TABLET PO (23:02)
[2021-10-20 23:21] VITALS: BP 104/58; PULSE 105; RESP 18; TEMP 36.8; O2SAT 96
[2021-10-21] MEDS: Haloperidol Lactate 5 MG/ML VIAL IVPUSH (02:14)
[2021-10-21] MEDS: dilTIAZem HCL 125 MG in 0.9 % Sodium Chloride 100 ML 10 MG IVCONT (02:29)
[2021-10-21 03:16] VITALS: BP 135/78; PULSE 113; RESP 20; TEMP 36.8; O2SAT 95
[2021-10-21 06:53] VITALS: BP 140/84; PULSE 84; RESP 20; TEMP 36.7; O2SAT 95
[2021-10-21 07:07] LABS: Anion Gap 16 (12-20); Blood Urea Nitrogen 20 mg/dL (9-16); Calcium 8.8 mg/dL (8.4-10.2); Carbon Dioxide 24 mmol/L (22-29); Chloride 104 mmol/L (96-108); Creatinine Clr Calc Pharmacy 34.9; Estimated Glomerular Filt Rate > 60; Glucose Random 97 mg/dL (60-115); Potassium 3.8 mmol/L (3.3-5.1); Sodium 140 mmol/L (135-145)
--- NOTE | 2021-10-21 07:45 | PC.NURSE ---
Patient resting with eyes closed breathing is unlabored. Diltizem drip paused d/t HR <90s. Afib. Sitter 1:1 at bedside. Fluids running 80ml/hr. Will try PO meds when wakes up.
[2021-10-21] MEDS: clonazePAM 0.5 MG TABLET 0.25 MG PO ×2 (09:38→20:12)
[2021-10-21] MEDS: DULoxetine HCl 30 MG CAPSULE.DR PO ×2 (09:38→20:11)
--- NOTE | 2021-10-21 09:41 | PC.NURSE ---
Patient up eating breakfast, agrees to take medications. HR 120s afib on monitor. MD will evaluate mediation list. Verbal order to hold metoprolol IV.
--- NOTE | 2021-10-21 11:00 | HO.PM.IMPN ---
Subjective Subjective Date of Service: 10/21/21 Interval History: somewhat restless overnight ate some food this AM not responding to my questions Review of Systems Review of Systems: Yes Unobtainable due to mental status Physical Exam Vital Signs: Vital Signs: Last Vital Signs Temp 98.0 F 10/21/21 06:53 Pulse 84 10/21/21 06:53 Resp 20 10/21/21 06:53 BP 140/84 H 10/21/21 06:53 Pulse Ox 95 10/21/21 06:53 O2 Del Method 10/21/21 06:53 BMI result Body Mass Index 18.1 Gen: withdrawn, uncooperative HEENT: sclera anicteric, moist mucus membranes Neck: supple Lungs: clear to auscultation bilaterally Heart: irregularly irregular Abd: soft, non-tender, non-distended Ext: no edema Skin: warm/well-perfused Neuro: alert, uncooperative with examination Psych: extremely restricted affect Objective Data Active Medications Acetaminophen (Acetaminophen 325 Mg Tablet) 650 mg PO Q6H PRN PRN Reason: Pain, Mild (Pain Scale 1-3) Atorvastatin Calcium (Atorvastatin Calcium 40 Mg Tablet) 40 mg PO BEDTIME [facility] Last Admin: 10/20/21 21:21 Dose: Not Given Documented By: WILFRED Non-Admin Reason: Patient Refused Clonazepam (Clonazepam 0.5 Mg Tablet) 0.25 mg PO BID [facility] Last Admin: 10/21/21 09:38 Dose: 0.25 mg Documented By: KEYSHA Digoxin (Digoxin 0.125 Mg Tablet) 0.125 mg PO [facility] Last Admin: 10/20/21 11:01 Dose: Not Given Documented By: NAYE Non-Admin Reason: Patient Refused Duloxetine HCl (Duloxetine Hcl 30 Mg Capsule.) 30 mg PO BID [facility] Last Admin: 10/21/21 09:38 Dose: 30 mg Documented By: KEYSHA Enoxaparin Sodium (Enoxaparin Sodium 40 Mg/0.4 Ml Syringe) 40 mg SUBCUT Q24H [facility] Last Admin: 10/20/21 17:06 Dose: 40 mg Documented By: NAYE Fluoxetine HCl (Fluoxetine Hcl Oral Solution 20 Mg/5 Ml Solution) 10 mg PO DAILY PRN PRN Reason: if pt refuses duloxetine Haloperidol Lactate (Haloperidol Lactate 5 Mg/Ml Vial) 0.5 mg IVPUSH Q8H PRN PRN Reason: severe agitation Last Admin: 10/21/21 02:14 Dose: 0.5 mg Documented By: PARTICK Diltiazem HCl 125 mg/ Sodium (Chloride) 125 mls @ 0 mls/hr IVCONT .Q0M [facility]; Protocol Last Titration: 10/21/21 07:41 Dose: 0 mg/hr, 0 mls/hr Documented By: KEYSHA Dextrose/Sodium Chloride (D51/2ns) 1,000 mls @ 80 mls/hr IVCONT .[id number] [facility] Last Admin: 10/20/21 23:13 Dose: 80 mls/hr Documented By: WILFRED Metoprolol Tartrate (Metoprolol Tartrate 5 Mg/5 Ml Vial) 5 mg IVPUSH Q6H [facility] Last Admin: 10/21/21 05:59 Dose: Not Given Documented By: PATRICK Non-Admin Reason: Decreased Heart Rate Mirtazapine (Mirtazapine 15 Mg Tablet) 15 mg PO BEDTIME [facility] Last Admin: 10/20/21 21:21 Dose: Not Given Documented By: WILFRED Non-Admin Reason: Patient Refused Olanzapine (Olanzapine 2.5 Mg Tablet) 2.5 mg PO BEDTIME [facility] Last Admin: 10/20/21 23:02 Dose: 2.5 mg Documented By: WILFRED Ondansetron HCl (Ondansetron Hcl 4 Mg/2 Ml Vial) 4 mg IVPUSH Q8H PRN PRN Reason: Nausea and Vomiting Sodium Chloride (0.9 % Sodium Chloride Flush 3 Ml Syringe) 3 ml IVFLUSH QSHIFT [facility] Last Admin: 10/21/21 09:43 Dose: Not Given Documented By: KEYSHA Non-Admin Reason: IV Running Labs CBC & Chem 7: 10/21/21 05:54 Labs: Laboratory Results - last 24 hr 10/21/21 05:54 Anion Gap 16 Estim Creat Clear Calc 34.9 Estimated GFR > 60 Random Glucose 97 Calcium 8.8 Assessment and Plan (1) Atrial fibrillation with rapid ventricular response: Status: Acute Plan hospital d#3 80yo F with AF, chronic HFpEF (50-55% February 2020), HTN, history of ocular melanoma, dementia, and history of encephalopathy who was admitted to the geriatric psychiatry unit on 09/28/21 with profound depression and weight loss.? She was slowly improving on medication therapy but then on 10/18/21 stopped eating and drinking and on 10/19/21refused all of her medications and became extremely agitated.? She was found to be in AF/RVR with rate of 160, so [place] [facility] [place] # chronic AF with RVR - place back on PO digoxin + metoprolol - place back on PO apixaban - Cardiology consulted - TTE # HTN - metoprolol # depression with anorexia - Psych consulted: on mirtazapine, olanzapine, duloxetine, clonazepam - IV maintenance fluids, periodic electrolyte monitoring # VTE prophylaxis: LMWH In my clinical judgment, the patient requires continued hospitalization for the following reasons: refusing POs, rate control, profound depression Quality Stroke Does the patient have a stroke diagnosis?: No VTE Prior VTE?: No VTE Risk Level:: Medical - moderate - high VTE Device Contraindication: N/A - Device Ordered VTE Drug Contraindication: N/A - Med Ordered
[2021-10-21] MEDS: Metoprolol Tartrate 100 MG TABLET PO ×2 (11:19→20:11)
[2021-10-21] MEDS: Acetaminophen 325 MG TABLET 650 MG PO (11:19)
[2021-10-21] MEDS: Digoxin 0.125 MG TABLET PO (11:20)
--- NOTE | 2021-10-21 11:38 | PM.CNCAR ---
History of Present Illness History of Present Illness Date of Service: 10/21/21 Chief complaint: AF/RVR/severe depression Narrative: This is a cardiology consultation regarding atrial fibrillation. Patient has persistent atrial fibrillation. Based on home medications, she is maintained on a combination of beta-blockers and digoxin. She is also on Eliquis. However, it seems that during this hospitalization, she has not been taking her medications consistently. She was initially the psychiatric floor where she was noted to be in atrial fibrillation with rapid rate but not taking medications for the same. Then transferred to medicine. Continues to have issues with taking medications orally and hence has been given IV medications including diltiazem, metoprolol. Currently, in atrial fibrillation with heart rates in the 110s to 120s. Earlier, heart rate seem to be lower in the 80s. Patient herself is somewhat vague in her symptoms. When asked about palpitations, sometimes she stated yes and sometimes no. No other clear cardiac symptoms. Eating breakfast during the interview. Review of Systems Review of Systems: Yes all other systems are reviewed and are negative Constitutional: Constitutional: Reports as per HPI Eyes: Eyes: Reports as per HPI ENT: Reports as per HPI Cardiovascular: Cardiovascular: Reports as per HPI, Denies acrocyanosis, Denies cool extremities, Denies chest pain, Denies leg edema, Denies lightheadedness, Denies palpitations and Denies dyspnea Respiratory: Respiratory: Reports as per HPI, Reports no additional respiratory complaints and Denies dyspnea Gastrointestinal: Gastrointestinal: Reports as per HPI and Reports no additional gastrointestinal complaints Genitourinary: Genitourinary: Reports as per HPI Musculoskeletal: Musculoskeletal: Reports no additional musculoskeletal complaints and Reports as per HPI Integumentary/Breasts: Skin/Breast: Reports system reviewed and no additional complaints, except as docu Neurologic: Reports system reviewed and no additional complaints, except as documented and Reports as per HPI Psychiatric: Psychiatric: Reports no additional psychiatric complaints and Reports as per HPI Endocrine: Endocrine: Reports no additional endocrine complaints, Reports as per HPI and Denies palpitations Hematologic/Lymphatic: Hematologic/Lymphatic: Reports no additional hematologic/lymphatic complaints and Reports as per HPI Allergic/Immunologic: Allergic/Immunologic: Reports no additional allergic/immunologic complaints and Reports as per HPI [facility] Past Medical History Medical History Anxiety Atrial fibrillation with controlled ventricular rate Dementia Depression Diastolic heart failure GERD (gastroesophageal reflux disease) History of rib fracture HTN (hypertension) Ocular melanoma Family History Family History Mother No problems noted. Father No problems noted. Surgical History Surgical History No pertinent past surgical history Social History Social History Household Members: Other Household Members Other:: son Housing: House Housing Other:: [facility] Do you presently have visiting nurse or other home services: No Unable to assess alcohol history related to: Unable to respond Alcohol intake: never Patient Tobacco Use Status: Never used Tobacco Smoked in Last 30 Days: No Second Hand Smoke Exposure: No Use of substances other than those prescribed or required for medical reasons: No Currently Displaying Signs/Symptoms of Drug Intoxication Withdrawal: No Any prior treatment program specific to substance use: No Have you been hit, kicked, punched, or otherwise hurt by someone within the past year? If so, by whom?: No (unable) Do you feel safe in your current relationship?: No Current Relationship Advance Directives: Yes Advance Directives on File: Yes Advance Directives Date on File: 04/19/21 Do you have thoughts of harming others: None Do you have a plan to hurt others: No Plan Recently lost weight without trying: Unsure Nutrition Risks: Poor intake 0-25% >4 days Patient : No service: No Current occupational status: retired Sexual orientation: Straight/Heterosexual Meds Allergies Allergy/AdvReac Type Severity Reaction Status Date / Time morphine AdvReac Severe Alternate Verified 09/27/21 10:25 mental status Active Medications: Current Medications Acetaminophen (Acetaminophen 325 Mg Tablet) 650 mg PO Q6H PRN PRN Reason: Pain, Mild (Pain Scale 1-3) Last Admin: 10/21/21 11:19 Dose: 650 mg Apixaban (Apixaban 2.5 Mg Tablet) 2.5 mg PO BID L[facility] Atorvastatin Calcium (Atorvastatin Calcium 40 Mg Tablet) 40 mg PO BEDTIME LINDSA[facility] Last Admin: 10/20/21 21:21 Dose: Not Given Clonazepam (Clonazepam 0.5 Mg Tablet) 0.25 mg PO BID LINDSAY Last Admin: 10/21/21 09:38 Dose: 0.25 mg Digoxin (Digoxin 0.125 Mg Tablet) 0.125 mg PO [facility] Last Admin: 10/20/21 11:01 Dose: Not Given Duloxetine HCl (Duloxetine Hcl 30 Mg Capsule.Dr) 30 mg PO BID [facility] Last Admin: 10/21/21 09:38 Dose: 30 mg Fluoxetine HCl (Fluoxetine Hcl Oral Solution 20 Mg/5 Ml Solution) 10 mg PO DAILY PRN PRN Reason: if pt refuses duloxetine Haloperidol Lactate (Haloperidol Lactate 5 Mg/Ml Vial) 0.5 mg IVPUSH Q8H PRN PRN Reason: severe agitation Last Admin: 10/21/21 02:14 Dose: 0.5 mg Dextrose/Sodium Chloride (D51/2ns) 1,000 mls @ 80 mls/hr IVCONT .[id number] [facility] Last Admin: 10/20/21 23:13 Dose: 80 mls/hr Metoprolol Tartrate (Metoprolol Tartrate 100 Mg Tablet) 100 mg PO BID [facility]; Protocol Last Admin: 10/21/21 11:19 Dose: 100 mg Mirtazapine (Mirtazapine 15 Mg Tablet) 15 mg PO BEDTIME [facility] Last Admin: 10/20/21 21:21 Dose: Not Given Olanzapine (Olanzapine 2.5 Mg Tablet) 2.5 mg PO BEDTIME [facility] Last Admin: 10/20/21 23:02 Dose: 2.5 mg Ondansetron HCl (Ondansetron Hcl 4 Mg/2 Ml Vial) 4 mg IVPUSH Q8H PRN PRN Reason: Nausea and Vomiting Sodium Chloride (0.9 % Sodium Chloride Flush 3 Ml Syringe) 3 ml IVFLUSH QSHIFT [facility] Last Admin: 10/21/21 09:43 Dose: Not Given Home Medications Medication Instructions Recorded Confirmed Last Taken Type amlodipine 10 mg tablet 10 mg PO DAILY 03/16/20 10/20/21 03/30/21 History calcium carbonate 600 mg-vitamin 1 tab PO DAILY 09/07/20 10/20/21 03/30/21 History D3 20 mcg (800 unit) tablet (Caltrate with Vitamin D3) mirtazapine 15 mg tablet 15 mg PO BEDTIME 06/06/21 10/20/21 Unknown History Drizalma Sprinkle 20 mg ONCE 09/27/21 10/20/21 Unknown History clonazepam 0.5 mg tablet 0.5 tab PO BID ANXIETY 09/27/21 10/20/21 Unknown History quetiapine 25 mg tablet 0.5 - 1 tab PO BEDTIME 09/27/21 10/20/21 Unknown History quetiapine 25 mg tablet 0.5 - 1 tab PO BID PRN Anxiety 09/27/21 10/20/21 Unknown History Physical Exam Vital Signs: Vital Signs: Last Vital Signs Temp 98.0 F 10/21/21 06:53 Pulse 84 10/21/21 06:53 Resp 20 10/21/21 06:53 BP 140/84 H 10/21/21 06:53 Pulse Ox 95 10/21/21 06:53 O2 Del Method 10/21/21 06:53 BMI result Body Mass Index 18.1 Const: General: comfortable and no acute distress Orientation/consciousness: patient oriented x3 HEENT: Other: Unremarkable Head: Yes normal to inspection Neck: Neck: Yes normal visual inspection Chest: Chest palpation & inspection: normal inspection of the chest Resp: Auscultation: clear to auscultation bilaterally Cardio: Palpation: normal PMI Heart sounds: S1 normal heart sound present, S2 normal heart sound present, no gallops, no murmurs and no rubs GI: Palpation (GI): Soft to palpation Back/Spine/Pelvis: Other: unremarkable Skin: General skin exam: no rashes or lesions noted Neuro: General: patient oriented x3 Extrem: General: Yes normal to inspection Psych: Mental Status: mental status grossly normal Objective Labs and Meds Result diagrams: 10/21/21 05:54 Lab results: Laboratory Results - last 24 hr 10/21/21 05:54 Sodium 140 Potassium 3.8 Chloride 104 Carbon Dioxide 24 Anion Gap 16 BUN 20 H Creatinine 0.84 Estim Creat Clear Calc 34.9 Estimated GFR > 60 Random Glucose 97 Calcium 8.8 ECG Interpretation: EKG from 19 of October shows atrial fibrillation at a rate of 156/Min; lateral ST depression with downsloping STs. PVC versus aberrant conduction. Assessment and Plan (1) Atrial fibrillation with rapid ventricular response: Status: Acute (2) Major depressive disorder: Status: Acute Plan High sensitivity troponins are 15.1 and 16.5. Echocardiogram from last year with LVEF 50-55% and mild aortic regurgitation. Mild reduction RV systolic function. Seems that her atrial fibrillation rapid rate is because of not taking her home medications, which in turn is probably from the depression. When asked today, she states she is agreeable to take them. Hence resume home medications of metoprolol and digoxin. Anticoagulation as before. Hopefully, once she takes them appropriately, the rate will get better. With regard to ECT therapy, ideally ventricular rate should be improved before proceeding. Discussed with Dr. Acosta. Procedures Date of Service Date of Service: 10/21/21
[2021-10-21 12:00] VITALS: BP 123/69; PULSE 73; RESP 18; TEMP 36.5; O2SAT 95
[2021-10-21 15:28] VITALS: BP 148/70; PULSE 76; RESP 17; TEMP 36.9; O2SAT 94
[2021-10-21 19:30] VITALS: BP 114/60; PULSE 85; RESP 18; TEMP 37.1; O2SAT 96
[2021-10-21] MEDS: OLANZapine 2.5 MG TABLET PO (20:11)
[2021-10-21] MEDS: Apixaban 2.5 MG TABLET PO (20:11)
[2021-10-21] MEDS: Atorvastatin Calcium 40 MG TABLET PO (20:13)
[2021-10-21] MEDS: Mirtazapine 15 MG TABLET PO (20:13)
[2021-10-21 23:23] VITALS: BP 139/71; PULSE 86; RESP 17; TEMP 36.6; O2SAT 95
[2021-10-22] MEDS: Dextrose 5 % and 0.45 % NaCl 1,000 ML 80 ML IVCONT (06:28)
[2021-10-22 08:00] VITALS: BP 139/78; PULSE 103; RESP 20; TEMP 36.8; O2SAT 95
[2021-10-22] MEDS: Apixaban 2.5 MG TABLET PO (10:10)
[2021-10-22] MEDS: DULoxetine HCl 30 MG CAPSULE.DR PO (10:10)
[2021-10-22] MEDS: Metoprolol Tartrate 100 MG TABLET PO (10:10)
[2021-10-22] MEDS: clonazePAM 0.5 MG TABLET 0.25 MG PO (10:10)
[2021-10-22] MEDS: 0.9 % Sodium Chloride Flush 3 ML SYRINGE IVFLUSH (10:10)
--- NOTE | 2021-10-22 11:12 | P.PNCA_ITS ---
Subjective Subjective Date of Service: 10/22/21 Interval history: Patient is lying in bed. Seems comfortable. When I questioned her about cardiac symptoms she states she feels fine and does not have any problems. Review of Systems Review of Systems Yes all other systems are reviewed and are negative Constitutional: Reports as per HPI Eyes: Reports as per HPI Reports as per HPI Cardiovascular: Reports as per HPI, Denies acrocyanosis, Denies cool ext remities, Denies chest pain, Denies leg edema, Denies lightheadedness, Denies palpitations and Denies dyspnea Respiratory: Reports as per HPI, Reports no additional respiratory complaints and Denies dyspnea Gastrointestinal: Reports as per HPI and Reports no additional gastrointestinal complaints Genitourinary: Reports as per HPI Musculoskeletal: Reports no additional musculoskeletal complaints and Reports as per HPI Skin/Breast: Reports system reviewed and no additional complaints, except as docu Reports system reviewed and no additional complaints, except as documented and Reports as per HPI Psychiatric: Reports no additional psychiatric complaints and Reports as per HPI Endocrine: Reports no additional endocrine complaints, Reports as per HPI and Denies palpitations Hematologic/Lymphatic: Reports no additional hematologic/lymphatic complaints and Reports as per HPI Allergic/Immunologic: Reports no additional allergic/immunologic complaints and Reports as per HPI Physical Exam Vital Signs: Last Vital Signs Temp 98.2 F 10/22/21 08:00 Pulse 103 H 10/22/21 08:00 Resp 20 10/22/21 08:00 BP 139/78 10/22/21 08:00 Pulse Ox 95 10/22/21 08:00 O2 Del Method 10/22/21 08:00 BMI result Body Mass Index 18.1 Const General: comfortable and no acute distress Orientation/consciousness: patient oriented x3 HEENT Other: Unremarkable Head: Yes normal to inspection Neck Neck: Yes normal visual inspection Chest Chest palpation & inspection: normal inspection of the chest Resp Auscultation: clear to auscultation bilaterally Cardio Palpation: normal PMI Heart sounds: S1 normal heart sound present, S2 normal heart sound present, no gallops, no murmurs and no rubs GI Palpation (GI): Soft to palpation Back/Spine/Pelvis Other: unremarkable Skin General skin exam: no rashes or lesions noted Neuro General: patient oriented x3 Extrem General: Yes normal to inspection Psych Mental Status: mental status grossly normal Objective Labs and Meds Result diagrams: 10/21/21 05:54 Progress Note: A&P Assessment and plan (1) Atrial fibrillation with rapid ventricular response: Status: Acute (2) Major depressive disorder: Status: Acute Plan Based on telemetry today, ventricular rate is about 90/Min at this time. Continues to be in atrial fibrillation which is chronic. She has been commenced on metoprolol, digoxin which is a home medication. Also on Eliquis. Atrial fibrillation rapid rate is mainly because of not taking medications and not from medication failure. Hopefully, she will continue to take the medications. High sensitivity troponins are 15.1 and 16.5. Echocardiogram from last year with LVEF 50-55% and mild aortic regurgitation. Mild reduction RV systolic function. With regard to ECT therapy, may proceed as long as the ventricular rate remains controlled. Intermediate cardiac risk. Discussed with Dr. Acosta. Time Spent With Patient Time: Total time spent is greater than 50% in coordination of care (as documented) at patient's floor/unit and/or counseling patient: 35min. Progress Note: Quality Stroke Does the patient have a stroke diagnosis?: No Procedures Date of Service Date of Service: 10/22/21
[2021-10-22 11:27] VITALS: BP 148/72; PULSE 84; RESP 20; TEMP 36.1; O2SAT 96
--- NOTE | 2021-10-22 13:17 | PM.DS ---
DS: Providers Provider Date of Service: 10/22/21 Date of admission: 10/19/21 15:16 Date of discharge: 10/22/21 Primary care physician: Unknown Physician Consults: 10/20/21 11:35 Consult to Psychiatry Routine Consulting Provider: Psych Covering Reason for consultation: came from [facility] for AF/RVR; still refusing meds/not eating. juan dumas 10/20/21 11:39 Consult to Cardiology Routine Consulting Provider: Kam Reynaga Reason for consultation: AF/RVR refusing all PO meds, psych planning ECT->cardiac eval 10/22/21 11:40 BHN [Consult to Crisis] Stat Reason for consultation: medically cleared to return to [facility] Consult to Care Team Stat Comment: Reason for consultation: medically cleared to return to [facility] DS: Diagnosis Discharge Diagnosis (1) Atrial fibrillation with rapid ventricular response: Status: Acute (2) Major depressive disorder: Status: Acute DS: Summary Hospital Course Hospital Course: From my admission H+P, 10/19/21: 80yo F with AF, chronic HFpEF, HTN, history of ocular melanoma, dementia, and history of encephalopathy who was admitted to the geriatric psychiatry unit on 09/28/21 with worsening depression after her daughter, her primary caregiver, committed suicide a few weeks prior. ? She also lost her in January 2021.? She came in with worsening lethargy, insomnia, and a 30 lb weight loss from poor PO intake. She has been placed on duolxetine, mirtazapine, risperidone, and donepezil and has gained 5 lb.? However, yesterday, she quite suddenly stopped eating and drinking and today refused all of her medications. The psychiatrist placed an urgent hospitalist consult due to concerns about increasing confusion and agitation, and refusal of all oral intake. I arrived to find her confused, disoriented, and agitated.? Her vital signs this morning were normal.? She appears to be in rapid AF with RVR in the 150s. Due to her mental status, I cannot obtain a reliable ROS from her.? However, she was noted by nursing staff to be ambulatory this morning. The patient was admitted to the [facility]. She required intermittent use of diltiazem infusion IV until she started taking her PO medications consistently, most importantly metoprolol and digoxin. Her ventricular rate was then controlled in the 80s-90s without use of the diltiazem infusion. She started taking her apixaban as well. Her oral intake improved. However, she remained extremely depressed and anxious and thus returned to Geriatric Psychiatry for further care. Time Spent with Patient Time attestation: Total time spent providing and/or coordinating discharge services: Discharge coordination time: Greater than 30 minutes Quality: Safe Use of Opioids Does Pt have an Active Cancer Diagnosis on the Problem List?: No Quality: Stroke Does the patient have a stroke diagnosis?: No Physical Exam Vital Signs: Vital Signs: Last Vital Signs Temp 97 F 10/22/21 11:27 Pulse 84 10/22/21 11:27 Resp 20 10/22/21 11:27 BP 148/72 H 10/22/21 11:27 Pulse Ox 96 10/22/21 11:27 O2 Del Method 10/22/21 11:27 BMI result Body Mass Index 18.1 Gen: withdrawn, uncooperative HEENT: sclera anicteric, moist mucus membranes Neck: supple Lungs: clear to auscultation bilaterally Heart: irregularly irregular Abd: soft, non-tender, non-distended Ext: no edema Skin: warm/well-perfused Neuro: alert, uncooperative with examination Psych: extremely restricted affect ? DS: Data Data Completed and Pending Completed studies during hospitalization [Text1]: Laboratory Results Sodium 140 mmol/L (135-145) 10/21/21 05:54 Potassium 3.8 mmol/L (3.3-5.1) 10/21/21 05:54 Chloride 104 mmol/L (96-108) 10/21/21 05:54 Carbon Dioxide 24 mmol/L (22-29) 10/21/21 05:54 Anion Gap 16 (12-20) 10/21/21 05:54 BUN 20 mg/dL (9-16) H 10/21/21 05:54 Creatinine 0.84 mg/dL (0.5-1.4) 10/21/21 05:54 Estim Creat Clear Calc 34.9 10/21/21 05:54 Estimated GFR > 60 10/21/21 05:54 POC Glucose 110 mg/dL (60-115) 10/19/21 20:50 Random Glucose 97 mg/dL (60-115) 10/21/21 05:54 Calcium 8.8 mg/dL (8.4-10.2) 10/21/21 05:54 Total Bilirubin 0.8 mg/dL (0.0-1.0) 10/20/21 08:09 AST 27 U/L (5-31) 10/20/21 08:09 ALT 53 U/L (0-31) H 10/20/21 08:09 Alkaline Phosphatase 61 U/L (39-117) 10/20/21 08:09 Troponin I High Sens 16.5 ng/L (<3.5-17.0) 10/20/21 08:09 Total Protein 5.5 g/dL (6.5-8.0) L 10/20/21 08:09 Albumin 3.3 g/dL (3.5-5.0) L 10/20/21 08:09 Discharge Plan Discharge Patient Disposition: Xfer Psychiatric Hosp Discharge Diagnosis: AF/RVR, depression Referrals: Physician,Unknown J [Primary Care Provider] - 1 Week Discharge Medications: New clonazepam 0.5 mg Tablet 0.25 mg PO BID Qty: 0 0RF duloxetine 30 mg Capsule,Delayed Release(Dr/Ec) 30 mg PO BID Qty: 1 0RF fluoxetine 20 mg/5 mL (4 mg/mL) Solution 10 mg PO DAILY PRN (Reason: if pt refuses duloxetine) Qty: 250 0RF olanzapine 2.5 mg Tablet 2.5 mg PO BEDTIME Qty: 30 0RF Continued metoprolol tartrate 100 mg tablet 100 mg PO BID 90 Days Qty: 180 3RF Eliquis 2.5 mg tablet 2.5 mg PO BID 30 Days Qty: 60 5RF digoxin 125 mcg (0.125 mg) tablet 125 mcg PO 90 Days Qty: 52 3RF Rx Instructions: Please call and schedule an appt atorvastatin 40 mg tablet 40 mg PO BEDTIME Qty: 30 5RF calcium carbonate-vitamin D3 [Caltrate with Vitamin D3] 600 mg(1,500mg) -800 unit Tablet 1 tab PO DAILY amlodipine 10 mg tablet 10 mg PO DAILY mirtazapine 15 mg tablet 15 mg PO BEDTIME Discontinued calcitonin (salmon) 200 unit/actuation [place],Non-Aerosol 1 spray intranasal (ALT) DAILY Qty: 3.7 0RF quetiapine 25 mg tablet 0.5 - 1 tab PO BEDTIME clonazepam 0.5 mg tablet 0.5 tab PO BID Drizalma Sprinkle 20 MG 20 mg ONCE quetiapine 25 mg tablet 0.5 - 1 tab PO BID PRN (Reason: Anxiety) Discharge Orders: Discharge Order (Routine); Ordered 10/22/21 Ordered By: Irina Acosta Diet: Advance to usual diet Activity on Discharge: As tolerated Stand Alone Forms: Patient Portal Discharge page Care Plan Goals: mental and cardiac health Health Concerns: atrial fibrillation/rapid ventricular response depression Plan of Treatment: resume psychiatric care take all medications as prescribed Assessment: see discharge summary
== END 2021-10-22 13:50 | DRG 309 ==
PROVIDERS: Admitting Provider Family Medicine; PCP Internal Medicine; Visit Provider Family Medicine
DX: I48.19 Other persistent atrial fibrillation (principal); F33.2 Major depressive disorder, recurrent severe without psychotic features; I50.32 Chronic diastolic (congestive) heart failure; Z68.1 Body mass index [BMI] 19.9 or less, adult; F41.9 Anxiety disorder, unspecified; I35.1 Nonrheumatic aortic (valve) insufficiency; I11.0 Hypertensive heart disease with heart failure; R63.0 Anorexia; F03.90 Unspecified dementia, unspecified severity, without behavioral disturbance, psychotic disturbance, mood disturbance, and anxiety; Z88.5 Allergy status to narcotic agent; Z79.01 Long term (current) use of anticoagulants; Z79.899 Other long term (current) drug therapy
CPT/HCPCS: 36415; 80048; 80053; 82947; 84484; J1650

== ENCOUNTER 2021-10-22 14:40 | Inpatient (IN) | payer MEDICARE, OTHER, SELFPAY ==
--- NOTE | ~2021-10-22 | US_ITS ---
EXAMINATION: US VENOUS ULTRASOUND WITH DOPPLER LOWER EXTREMITY, LEFT CLINICAL INFORMATION: Left lower extremity swelling. COMPARISON: None TECHNIQUE: Ultrasound of the deep veins is performed from the hip to the calf with compression sonography and color and pulse Doppler assessment. Spectral analysis with color-flow imaging is performed. FINDINGS: There is normal venous compression and respiratory variation and augmented flow. The visualized common femoral vein, superficial femoral vein, profunda femoral vein, popliteal vein, and the trifurcation region shows no evidence of deep venous thrombosis. No evidence of Hunt's cyst. US/US venous duplex LE LT IMPRESSION: No DVT demonstrated in the left lower extremity.
[2021-10-22 15:31] LABS: COVID-19 Test Negative (Negative)
[2021-10-22 16:07] VITALS: BP 110/53; PULSE 82; RESP 18; TEMP 36.6; O2SAT 98
[2021-10-22 16:51] VITALS: BMI 18.1
--- NOTE | 2021-10-22 17:31 | PC.ADMIT ---
Patient re-admitted to S[facility] following transfer to [facility] on 10/19/21 for AFIB. Legal status is CV by HCP.Medically cleared and returned to unit at 1515. Patient transferred via wearing hospital attire. Accompanied by son, Patient Observer and RN. Patient diagnosis is Generalized Anxiety, Major Depressive Disorder secondary to suicide of daughter (primary memory care program director) and having to move in with son with difficulty adjusting to these changes. Patient presented as oriented ot self only. Vague to time, date and situation. Memory does not appear intact. Patient VSS T 97.8,Pulse 82, BP 110/53, O2 98% Resp. 18. Patient and son participated in admission process. Patient observed to be eating and engaging with peers at this time.
[2021-10-22 18:00] VITALS: BP 148/58; PULSE 99; RESP 18; TEMP 36.7; O2SAT 93
[2021-10-22] MEDS: Apixaban 2.5 MG TABLET PO (20:07)
[2021-10-22] MEDS: DULoxetine HCl 30 MG CAPSULE.DR PO (20:07)
[2021-10-22] MEDS: clonazePAM 0.5 MG TABLET 0.25 MG PO (20:07)
[2021-10-22] MEDS: Metoprolol Succinate ER 100 MG TAB.ER.24H PO (20:07)
[2021-10-22] MEDS: OLANZapine 2.5 MG TABLET PO (20:08)
[2021-10-22] MEDS: Mirtazapine 15 MG TABLET PO (20:08)
[2021-10-23] MEDS: traZODone HCL 50 MG TABLET PO ×2 (00:21→22:27)
[2021-10-23 08:21] VITALS: BP 131/80; PULSE 94; RESP 16; TEMP 36.7; O2SAT 94
[2021-10-23] MEDS: clonazePAM 0.5 MG TABLET 0.25 MG PO ×2 (08:24→19:46)
[2021-10-23] MEDS: amLODIPine Besylate 10 MG TABLET PO (08:25)
[2021-10-23] MEDS: Calcium + Vitamin D 250 MG TABLET 500 MG PO (08:25)
[2021-10-23] MEDS: DULoxetine HCl 30 MG CAPSULE.DR PO ×2 (08:26→19:45)
[2021-10-23] MEDS: Apixaban 2.5 MG TABLET PO ×2 (08:26→19:45)
[2021-10-23 08:41] LABS: Alanine Aminotransferase 44 U/L (0-31); Albumin Level 3.3 g/dL (3.5-5.0); Alkaline Phosphatase 55 U/L (39-117); Anion Gap 12 (12-20); Aspartate Amino Transferase 23 U/L (5-31); Bilirubin Total 0.5 mg/dL (0.0-1.0); Blood Urea Nitrogen 19 mg/dL (9-16); Carbon Dioxide 27 mmol/L (22-29); Chloride 107 mmol/L (96-108); Cholesterol 123 mg/dL; Creatinine Clr Calc Pharmacy 35.3; Estimated Glomerular Filt Rate > 60; Glucose Fasting 97 mg/dL (60-99); HDL Cholesterol 59 mg/dL; LDL Cholesterol Calculated 54 mg/dl; Potassium 4.1 mmol/L (3.3-5.1); Sodium 142 mmol/L (135-145); Total Protein 5.5 g/dL (6.5-8.0); Triglycerides 51 mg/dL
[2021-10-23 12:36] VITALS: BP 133/62; PULSE 81
[2021-10-23] MEDS: Metoprolol Tartrate 100 MG TABLET PO ×2 (12:40→19:45)
[2021-10-23] MEDS: OLANZapine 2.5 MG TABLET PO ×3 (15:26→22:27)
[2021-10-23 15:29] VITALS: BMI 18.1
[2021-10-23 18:00] VITALS: BP 121/79; PULSE 95; RESP 16; TEMP 36.6; O2SAT 96
[2021-10-23] MEDS: Mirtazapine 15 MG TABLET PO (21:45)
--- NOTE | 2021-10-23 22:22 | HO.PSYCHPN ---
Subjective Subjective Date of Service: 10/24/21 Reason For Visit: Depression Subjective Notes: Conditional Voluntary Healthcare Proxy: Yes Interim History: The patient is severely depressed and withdrawn seem to have responded to olanzapine 2.5 mg b.i.d. to some degree Metoprolol changed to tartrate Medication Compliance: Intermittent Review of Systems Recent SVT poor intake Mental Status Exam Mental Status Exam Patient Appearance: Disheveled Patient Orientation: Person Level of Consciousness: Awake Patient Behavior: Guarded, Passive and Crying Mood Description: Constricted and Depressed Affect Description: Constricted, Depressed and Apprehensive Hallucinations: None Delusions: Not Present Depressive Symptoms: Increased Anxiety, Crying Spells and Thoughts of /Suicide Diagnostics Vital Signs (24Hr): Vital Signs - 24 hr 10/23/21 08:21 10/23/21 12:36 Temperature 98.1 F Pulse Rate 94 81 Respiratory Rate 16 Blood Pressure 131/80 133/62 Pulse Oximetry 94 Oxygen Delivery Method Room Air BMI result Body Mass Index 18.1 Labs Results: 10/23/21 07:50 Labs: Laboratory Results - last 48 hr 10/22/21 10/23/21 15:10 07:50 Sodium 142 Potassium 4.1 Chloride 107 Carbon Dioxide 27 Anion Gap 12 BUN 19 H Creatinine 0.83 Estim Creat Clear Calc 35.3 Estimated GFR > 60 Fasting Glucose 97 Calcium 9.0 Total Bilirubin 0.5 AST 23 ALT 44 H Alkaline Phosphatase 55 Total Protein 5.5 L Albumin 3.3 L Triglycerides 51 Cholesterol 123 LDL Cholesterol, Calc 54 HDL Cholesterol 59 COVID-19 (KYLEE) Negative COVID-19 Clin Com See Note Medications Medications Current Medications Acetaminophen (Acetaminophen 325 Mg Tablet) 650 mg PO Q6H PRN PRN Reason: Pain, Mild (Pain Scale 1-3) Al Hydroxide/Mg Hydroxide (Magnesium Hydrox/Alum Hydrox 30 Ml Oral.Susp) 30 ml PO Q6H PRN PRN Reason: Heartburn/Nausea Amlodipine Besylate (Amlodipine Besylate 10 Mg Tablet) 10 mg PO DAILY [facility]; Protocol Last Admin: 10/23/21 08:25 Dose: 10 mg Apixaban (Apixaban 2.5 Mg Tablet) 2.5 mg PO BID [facility] Last Admin: 10/23/21 19:45 Dose: 2.5 mg Atorvastatin Calcium (Atorvastatin Calcium 40 Mg Tablet) 40 mg PO BEDTIME [facility] Last Admin: 10/23/21 19:47 Dose: Not Given Calcium Carbonate/Cholecalciferol (Calcium + Vitamin D 250 Mg Tablet) 500 mg PO DAILY [facility] Last Admin: 10/23/21 08:25 Dose: 500 mg Clonazepam (Clonazepam 0.5 Mg Tablet) 0.25 mg PO BID [facility] Last Admin: 10/23/21 19:46 Dose: 0.25 mg Digoxin (Digoxin 0.125 Mg Tablet) 0.125 mg PO TuWeThFr@0900 [facility] Duloxetine HCl (Duloxetine Hcl 30 Mg Capsule.Dr) 30 mg PO BID [facility] Last Admin: 10/23/21 19:45 Dose: 30 mg Fluoxetine HCl (Fluoxetine Hcl Oral Solution 20 Mg/5 Ml Solution) 10 mg PO DAILY PRN PRN Reason: if pt refuses duloxetine Hydroxyzine HCl (Hydroxyzine Hcl 25 Mg Tablet) 25 mg PO Q6H PRN PRN Reason: Anxiety Magnesium Hydroxide (Milk Of Magnesia 30 Ml Oral.Susp) 30 ml PO DAILY PRN PRN Reason: Constipation Metoprolol Tartrate (Metoprolol Tartrate 100 Mg Tablet) 100 mg PO BID [facility]; Protocol Last Admin: 10/23/21 19:45 Dose: 100 mg Mirtazapine (Mirtazapine 15 Mg Tablet) 15 mg PO BEDTIME [facility] Last Admin: 10/23/21 21:45 Dose: 15 mg Olanzapine (Olanzapine 2.5 Mg Tablet) 2.5 mg PO Q4H PRN PRN Reason: Psychosis Last Admin: 10/23/21 15:26 Dose: 2.5 mg Olanzapine (Olanzapine 2.5 Mg Tablet) 2.5 mg PO BID [facility] Trazodone HCl (Trazodone Hcl 50 Mg Tablet) 50 mg PO BEDTIME PRN PRN Reason: Insomnia Last Admin: 10/23/21 00:21 Dose: 50 mg Allergies Allergies Allergy/AdvReac Type Severity Reaction Status Date / Time morphine AdvReac Severe Alternate Verified 09/27/21 10:25 mental status Assessment & Plan Assessment & Plan (1) Major depressive disorder, recurrent severe without psychotic features: Status: Acute Code(s): F33.2 - Major depressive disorder, recurrent severe without psychotic features Assessment and Plan: Continue Cymbalta dose lowered with renal insufficiency check labs in a.m. will have discussion healthcare proxy (2) HTN (hypertension): Status: Acute Code(s): I10 - Essential (primary) hypertension (3) Atrial fibrillation with rapid ventricular response: Status: Acute Code(s): I48.91 - Unspecified atrial fibrillation Assessment and Plan: Continue metoprolol monitor rate Plan Patient severely depressed and withdrawn some intake noted but significantly decreased. Some periods of elevated mood states and talking about prostitutes somewhat pressured has been intermittently observed per but generally severely depressed withdrawn poor concentration attention hopeless helpless generally not very forthcoming guarded depressed sad sh of her and daughter I spent minutes with the patient and/or on the patient floor today, greater than?50% of which was spent counseling/coordinating care. Reason for contiued inpatient stay Substantial Risk for: harm to self, inability to function and rapid decompensation
[2021-10-23 23:15] VITALS: BP 133/81; PULSE 88; RESP 16; TEMP 36.6; O2SAT 94
[2021-10-24] MEDS: Calcium + Vitamin D 250 MG TABLET 500 MG PO (10:10)
[2021-10-24] MEDS: DULoxetine HCl 30 MG CAPSULE.DR PO ×2 (10:10→20:44)
[2021-10-24] MEDS: clonazePAM 0.5 MG TABLET 0.25 MG PO ×2 (10:10→20:45)
[2021-10-24] MEDS: Metoprolol Tartrate 100 MG TABLET PO ×2 (10:11→20:45)
[2021-10-24] MEDS: Digoxin 0.125 MG TABLET PO (10:11)
[2021-10-24] MEDS: Apixaban 2.5 MG TABLET PO ×2 (10:12→20:44)
[2021-10-24] MEDS: amLODIPine Besylate 10 MG TABLET PO (10:12)
[2021-10-24] MEDS: OLANZapine 2.5 MG TABLET PO ×2 (10:12→20:45)
[2021-10-24 18:00] VITALS: BP 141/65; PULSE 85; RESP 17; TEMP 36.6; O2SAT 94
[2021-10-24] MEDS: Atorvastatin Calcium 40 MG TABLET PO (20:44)
[2021-10-24] MEDS: Mirtazapine 15 MG TABLET PO (20:45)
--- NOTE | 2021-10-24 22:36 | P.PNPSI_ITS ---
Subjective Subjective Date of Service: 10/24/21 Reason For Visit: Depression Subjective Notes: Conditional Voluntary Healthcare Proxy: Yes Interim History: Patient anxious depressed keeps saying she can not do this can not to that but then is able to complete small given tasks. Family meeting set for tomorrow Encourage food and fluids Medication Compliance: Intermittent Diagnostics Vital Signs (24Hr): Vital Signs - 24 hr 10/23/21 23:15 10/24/21 18:00 Temperature 98 F 97.9 F Pulse Rate 88 85 Respiratory Rate 16 17 Blood Pressure 133/81 141/65 H Pulse Oximetry 94 94 Oxygen Delivery Method Room Air Room Air BMI result Body Mass Index 18.1 Labs Results: 10/25/21 09:45 Labs: Laboratory Results - last 48 hr 10/23/21 07:50 Sodium 142 Potassium 4.1 Chloride 107 Carbon Dioxide 27 Anion Gap 12 BUN 19 H Creatinine 0.83 Estim Creat Clear Calc 35.3 Estimated GFR > 60 Fasting Glucose 97 Calcium 9.0 Total Bilirubin 0.5 AST 23 ALT 44 H Alkaline Phosphatase 55 Total Protein 5.5 L Albumin 3.3 L Triglycerides 51 Cholesterol 123 LDL Cholesterol, Calc 54 HDL Cholesterol 59 Medications Medications Current Medications Acetaminophen (Acetaminophen 325 Mg Tablet) 650 mg PO Q6H PRN PRN Reason: Pain, Mild (Pain Scale 1-3) Al Hydroxide/Mg Hydroxide (Magnesium Hydrox/Alum Hydrox 30 Ml Oral.Susp) 30 ml PO Q6H PRN PRN Reason: Heartburn/Nausea Amlodipine Besylate (Amlodipine Besylate 10 Mg Tablet) 10 mg PO DAILY [facility]; Protocol Last Admin: 10/24/21 10:12 Dose: 10 mg Apixaban (Apixaban 2.5 Mg Tablet) 2.5 mg PO BID [facility] Last Admin: 10/24/21 20:44 Dose: 2.5 mg Atorvastatin Calcium (Atorvastatin Calcium 40 Mg Tablet) 40 mg PO BEDTIME [facility] Last Admin: 10/24/21 20:44 Dose: 40 mg Calcium Carbonate/Cholecalciferol (Calcium + Vitamin D 250 Mg Tablet) 500 mg PO DAILY [facility] Last Admin: 10/24/21 10:10 Dose: 500 mg Clonazepam (Clonazepam 0.5 Mg Tablet) 0.25 mg PO BID [facility] Last Admin: 10/24/21 20:45 Dose: 0.25 mg Digoxin (Digoxin 0.125 Mg Tablet) 0.125 mg PO TuWeThFr@0900 [facility] Last Admin: 10/24/21 10:11 Dose: 0.125 mg Duloxetine HCl (Duloxetine Hcl 30 Mg Capsule.Dr) 30 mg PO BID [facility] Last Admin: 10/24/21 20:44 Dose: 30 mg Fluoxetine HCl (Fluoxetine Hcl Oral Solution 20 Mg/5 Ml Solution) 10 mg PO DAILY PRN PRN Reason: if pt refuses duloxetine Hydroxyzine HCl (Hydroxyzine Hcl 25 Mg Tablet) 25 mg PO Q6H PRN PRN Reason: Anxiety Magnesium Hydroxide (Milk Of Magnesia 30 Ml Oral.Susp) 30 ml PO DAILY PRN PRN Reason: Constipation Metoprolol Tartrate (Metoprolol Tartrate 100 Mg Tablet) 100 mg PO BID [facility]; Protocol Last Admin: 10/24/21 20:45 Dose: 100 mg Mirtazapine (Mirtazapine 15 Mg Tablet) 15 mg PO BEDTIME [facility] Last Admin: 10/24/21 20:45 Dose: 15 mg Olanzapine (Olanzapine 2.5 Mg Tablet) 2.5 mg PO Q4H PRN PRN Reason: Psychosis Last Admin: 10/23/21 22:27 Dose: 2.5 mg Olanzapine (Olanzapine 2.5 Mg Tablet) 2.5 mg PO BID [facility] Last Admin: 10/24/21 20:45 Dose: 2.5 mg Trazodone HCl (Trazodone Hcl 50 Mg Tablet) 50 mg PO BEDTIME PRN PRN Reason: Insomnia Last Admin: 10/23/21 22:27 Dose: 50 mg Allergies Allergies Allergy/AdvReac Type Severity Reaction Status Date / Time morphine AdvReac Severe Alternate Verified 09/27/21 10:25 mental status Assessment & Plan Assessment & Plan (1) Major depressive disorder, recurrent severe without psychotic features: Status: Acute Code(s): F33.2 - Major depressive disorder, recurrent severe without psychotic features Assessment and Plan: Continue Cymbalta dose lowered with renal insufficiency check labs in a.m. will have discussion healthcare proxy Check labs in a.m. consider ECT try and differentiate cognitive issues versus depression difficult to tease out (2) HTN (hypertension): Status: Acute Code(s): I10 - Essential (primary) hypertension (3) Atrial fibrillation with rapid ventricular response: Status: Acute Code(s): I48.91 - Unspecified atrial fibrillation Assessment and Plan: Continue metoprolol monitor rate Plan Patient severely depressed and withdrawn some intake noted but significantly decreased. Some periods of elevated mood states and talking about prostitutes somewhat pressured has been intermittently observed per but generally severely depressed withdrawn poor concentration attention hopeless helpless generally not very forthcoming guarded depressed sad sh of her and daughter I spent minutes with the patient and/or on the patient floor today, greater than?50% of which was spent counseling/coordinating care. Reason for contiued inpatient stay Substantial Risk for: harm to self, inability to function, rapid decompensation and med/psych decompensation
[2021-10-25 06:00] VITALS: BP 140/84; PULSE 75; RESP 15; TEMP 36.2; O2SAT 98
[2021-10-25] MEDS: Calcium + Vitamin D 250 MG TABLET 500 MG PO (10:00)
[2021-10-25] MEDS: Metoprolol Tartrate 100 MG TABLET PO ×2 (10:00→20:23)
[2021-10-25] MEDS: amLODIPine Besylate 10 MG TABLET PO (10:00)
[2021-10-25] MEDS: OLANZapine 2.5 MG TABLET PO ×2 (10:00→20:23)
[2021-10-25] MEDS: clonazePAM 0.5 MG TABLET 0.25 MG PO ×2 (10:00→20:23)
[2021-10-25] MEDS: Apixaban 2.5 MG TABLET PO ×2 (10:01→20:22)
[2021-10-25] MEDS: DULoxetine HCl 30 MG CAPSULE.DR PO ×2 (10:01→20:23)
[2021-10-25 10:14] LABS: Alanine Aminotransferase 44 U/L (0-31); Albumin Level 3.4 g/dL (3.5-5.0); Alkaline Phosphatase 62 U/L (39-117); Anion Gap 13 (12-20); Aspartate Amino Transferase 23 U/L (5-31); Bilirubin Total 0.5 mg/dL (0.0-1.0); Blood Urea Nitrogen 17 mg/dL (9-16); Calcium 9.2 mg/dL (8.4-10.2); Carbon Dioxide 27 mmol/L (22-29); Chloride 104 mmol/L (96-108); Creatinine Clr Calc Pharmacy 37.4; Estimated Glomerular Filt Rate > 60; Glucose Fasting 101 mg/dL (60-99); Potassium 4.2 mmol/L (3.3-5.1); Sodium 140 mmol/L (135-145); Total Protein 5.9 g/dL (6.5-8.0)
[2021-10-25] MEDS: Acetaminophen 325 MG TABLET 650 MG PO (11:05)
[2021-10-25] MEDS: Digoxin 0.125 MG TABLET PO (12:38)
--- NOTE | 2021-10-25 14:57 | MHC.CLN ---
NUTRITION F/U DIET=REGULAR. ADDING ENSURE TID PER DISCUSSION WITH STAFF. ENSURE TID PROVIDES ADDITIONAL 1050 KCALS, 60 G PROTEIN. ATE WELL TODAY AT BREAKFAST AND LUNCH WITH ASSIST FROM STAFF. PER [facility]OL[facility], NO ARTIFICIAL NUTRITION OR ARTIFICIAL HYDRATION. HX POOR INTAKE. FOLLOW FOR INTAKE AND DIET TOLERANCE.
[2021-10-25 18:00] VITALS: PULSE 84; RESP 18; TEMP 35.9; O2SAT 97
[2021-10-25] MEDS: Atorvastatin Calcium 40 MG TABLET PO (20:22)
[2021-10-25] MEDS: Mirtazapine 15 MG TABLET PO (20:23)
--- NOTE | 2021-10-25 22:44 | P.PNPSI_ITS ---
Subjective Subjective Date of Service: 10/25/21 Reason For Visit: Depression Subjective Notes: Conditional Voluntary Healthcare Proxy: Yes Interim History: pt withdrawn depressed ruminating hopleless helpless [facility] nothing can help me case reviewed with Healthcare proxy daughter daughter and prescribing nurse practitioner Mental Status Exam Mental Status Exam Narrative: Ruminating repeatedly I can not do it admits to feeling severely depressed she has constricted no she is hospital refuses most for further testing Patient Appearance: Disheveled Patient Orientation: Person Level of Consciousness: Awake Patient Behavior: Guarded, Passive and Crying Mood Description: Constricted and Depressed Affect Description: Constricted, Depressed and Apprehensive Hallucinations: None Delusions: Not Present Depressive Symptoms: Increased Anxiety, Crying Spells and Thoughts of /Suicide Diagnostics Vital Signs (24Hr): Vital Signs - 24 hr 10/25/21 06:00 10/25/21 18:00 Temperature 97.1 F 96.7 F L Pulse Rate 75 84 Respiratory Rate 15 18 Blood Pressure 140/84 H Pulse Oximetry 98 97 Oxygen Delivery Method Room Air Room Air BMI result Body Mass Index 18.1 Labs Results: 10/25/21 09:45 Labs: Laboratory Results - last 48 hr 10/25/21 09:45 Sodium 140 Potassium 4.2 Chloride 104 Carbon Dioxide 27 Anion Gap 13 BUN 17 H Creatinine 0.77 Estim Creat Clear Calc 37.4 Estimated GFR > 60 Fasting Glucose 101 H Calcium 9.2 Total Bilirubin 0.5 AST 23 ALT 44 H Alkaline Phosphatase 62 Total Protein 5.9 L Albumin 3.4 L Medications Medications Current Medications Acetaminophen (Acetaminophen 325 Mg Tablet) 650 mg PO Q6H PRN PRN Reason: Pain, Mild (Pain Scale 1-3) Last Admin: 10/25/21 11:05 Dose: 650 mg Al Hydroxide/Mg Hydroxide (Magnesium Hydrox/Alum Hydrox 30 Ml Oral.Susp) 30 ml PO Q6H PRN PRN Reason: Heartburn/Nausea Amlodipine Besylate (Amlodipine Besylate 10 Mg Tablet) 10 mg PO DAILY [facility]; Protocol Last Admin: 10/25/21 10:00 Dose: 10 mg Apixaban (Apixaban 2.5 Mg Tablet) 2.5 mg PO BID [facility] Last Admin: 10/25/21 20:22 Dose: 2.5 mg Atorvastatin Calcium (Atorvastatin Calcium 40 Mg Tablet) 40 mg PO BEDTIME [facility] Last Admin: 10/25/21 20:22 Dose: 40 mg Calcium Carbonate/Cholecalciferol (Calcium + Vitamin D 250 Mg Tablet) 500 mg PO DAILY [facility] Last Admin: 10/25/21 10:00 Dose: 500 mg Clonazepam (Clonazepam 0.5 Mg Tablet) 0.25 mg PO BID [facility] Last Admin: 10/25/21 20:23 Dose: 0.25 mg Digoxin (Digoxin 0.125 Mg Tablet) 0.125 mg PO TuWeThFr@0900 [facility] Last Admin: 10/25/21 12:38 Dose: 0.125 mg Duloxetine HCl (Duloxetine Hcl 30 Mg Capsule.Dr) 30 mg PO BID [facility] Last Admin: 10/25/21 20:23 Dose: 30 mg Fluoxetine HCl (Fluoxetine Hcl Oral Solution 20 Mg/5 Ml Solution) 10 mg PO DAILY PRN PRN Reason: if pt refuses duloxetine Hydroxyzine HCl (Hydroxyzine Hcl 25 Mg Tablet) 25 mg PO Q6H PRN PRN Reason: Anxiety Magnesium Hydroxide (Milk Of Magnesia 30 Ml Oral.Susp) 30 ml PO DAILY PRN PRN Reason: Constipation Metoprolol Tartrate (Metoprolol Tartrate 100 Mg Tablet) 100 mg PO BID [facility]; Prot ocol Last Admin: 10/25/21 20:23 Dose: 100 mg Mirtazapine (Mirtazapine 15 Mg Tablet) 15 mg PO BEDTIME [facility] Last Admin: 10/25/21 20:23 Dose: 15 mg Olanzapine (Olanzapine 2.5 Mg Tablet) 2.5 mg PO Q4H PRN PRN Reason: Psychosis Last Admin: 10/23/21 22:27 Dose: 2.5 mg Olanzapine (Olanzapine 2.5 Mg Tablet) 2.5 mg PO BID [facility] Last Admin: 10/25/21 20:23 Dose: 2.5 mg Trazodone HCl (Trazodone Hcl 50 Mg Tablet) 50 mg PO BEDTIME PRN PRN Reason: Insomnia Last Admin: 10/23/21 22:27 Dose: 50 mg Allergies Allergies Allergy/AdvReac Type Severity Reaction Status Date / Time morphine AdvReac Severe Alternate Verified 09/27/21 10:25 mental status Assessment & Plan Assessment & Plan (1) Major depressive disorder, recurrent severe without psychotic features: Status: Acute Code(s): F33.2 - Major depressive disorder, recurrent severe without psychotic features Assessment and Plan: Continue Cymbalta dose lowered with renal insufficiency check labs in a.m. discussion healthcare proxy Check labs in a.m. consider ECT try and differentiate cognitive issues versus depression difficult to tease out (2) HTN (hypertension): Status: Acute Code(s): I10 - Essential (primary) hypertension (3) Atrial fibrillation with rapid ventricular response: Status: Acute Code(s): I48.91 - Unspecified atrial fibrillation Assessment and Plan: Continue metoprolol monitor rate Plan Patient severely depressed and withdrawn some intake noted but significantly decreased. Some periods of elevated mood states and talking about prostitutes somewhat pressured has been intermittently observed per but generally severely depressed withdrawn poor concentration attention hopeless helpless generally not very forthcoming guarded depressed sad sh of her and daughter I spent minutes with the patient and/or on the patient floor today, greater than?50% of which was spent counseling/coordinating care. Reason for contiued inpatient stay Substantial Risk for: harm to self, rapid decompensation and med/psych decompensation
--- NOTE | 2021-10-26 | ECG_ITS ---
Test Reason : AFIB Blood Pressure : / mmHG Vent. Rate : 078 BPM Atrial Rate : 000 BPM P-R Int : 000 ms QRS Dur : 084 ms QT Int : 354 ms P-R-T Axes : 000 -47 038 degrees QTc Int : 403 ms Atrial fibrillation with premature ventricular or aberrantly conducted complexes Left axis deviation Anteroseptal infarct (cited on or before 29-MAR-2020) Abnormal ECG When compared with ECG of 19-OCT-2021 15:00, Vent. rate has decreased BY [address] no longer depressed in Lateral leads T wave amplitude has decreased in Anterior leads Nonspecific T wave abnormality has replaced inverted T waves in Lateral leads Referred By: Arsenio Britt Electronically Signed By:JUSTIN WILCOX
[2021-10-26 06:00] VITALS: BP 132/79; PULSE 86; RESP 18; TEMP 36.2; O2SAT 95
[2021-10-26] MEDS: Calcium + Vitamin D 250 MG TABLET 500 MG PO (08:28)
[2021-10-26] MEDS: Metoprolol Tartrate 100 MG TABLET PO ×2 (08:28→21:17)
[2021-10-26] MEDS: DULoxetine HCl 30 MG CAPSULE.DR PO ×2 (08:28→21:17)
[2021-10-26] MEDS: clonazePAM 0.5 MG TABLET 0.25 MG PO ×2 (08:29→21:16)
[2021-10-26] MEDS: OLANZapine 2.5 MG TABLET PO ×2 (08:29→21:17)
[2021-10-26] MEDS: Apixaban 2.5 MG TABLET PO ×2 (08:30→21:17)
[2021-10-26] MEDS: amLODIPine Besylate 10 MG TABLET PO (08:30)
[2021-10-26] MEDS: Digoxin 0.125 MG TABLET PO (08:42)
--- NOTE | 2021-10-26 18:38 | P.CONHOSP_ITS ---
History of Present Illness Data of Consult Service Date: 10/26/21 Requesting physician: Arsenio Britt Primary Care Provider: Unknown Physician HPI Reason for consult: medical evaluation ECT 81 year old female with history of mdd, dementia, diastolic heart failure, htn, and persistent atrial fibrillation admitted to psychiatry seen in consult for medical evaluation prior to ECT. Patient with recent episodes of RVR now managed with metoprolol 100mg bid and digoxin anticoagulated with apixiban. heart rates have been controlled averaging in the 80s. She reports intermittent palpitations and some swelling in the lle. No sob, lightheadedness, cp. Able to ambulate down the miller with a walker without dyspnea. Review of Systems Review of Systems: General: No fevers, malaise, unintentional weight loss Cardiovascular: +palpitations, +leg edema. 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 Father No problems noted. Surgical History No pertinent past surgical history Social History Household Members: Family Household Members Other:: Son, Akil Joe Housing: House Housing Other:: [facility] Do you presently have visiting nurse or other home services: Yes ([facility] services) Unable to assess alcohol history related to: Unable to respond Alcohol intake: never Patient Tobacco Use Status: Never used Tobacco Second Hand Smoke Exposure: No Use of substances other than those prescribed or required for medical reasons: No Currently Displaying Signs/Symptoms of Drug Intoxication Withdrawal: No Have you been hit, kicked, punched, or otherwise hurt by someone within the past year? If so, by whom?: No Do you feel safe in your current relationship?: No Current Relationship Is there a partner from a previous relationship who is making you feel unsafe now?: No Advance Directives: Yes Advance Directives Information Provided: Yes (INDU) Advance Directives on File: Yes Advance Directives Date on File: 04/19/21 Do you have thoughts of harming others: None Do you have a plan to hurt others: No Plan Recently lost weight without trying: Yes How much weight loss: 24-33 pounds Eating poorly because of decreased appetite: Yes Nutrition screen score: 6 Nutrition Risks: Poor intake 0-25% >4 days Patient : No : No Poor oral hygiene: No service: No Current occupational status: retired Sexual orientation: Straight/Heterosexual Meds Allergies Allergy/AdvReac Type Severity Reaction Status Date / Time morphine AdvReac Severe Alternate Verified 09/27/21 10:25 mental status Active Medications: Current Medications Acetaminophen (Acetaminophen 325 Mg Tablet) 650 mg PO Q6H PRN PRN Reason: Pain, Mild (Pain Scale 1-3) Last Admin: 10/25/21 11:05 Dose: 650 mg Al Hydroxide/Mg Hydroxide (Magnesium Hydrox/Alum Hydrox 30 Ml Oral.Susp) 30 ml PO Q6H PRN PRN Reason: Heartburn/Nausea Amlodipine Besylate (Amlodipine Besylate 10 Mg Tablet) 10 mg PO DAILY [facility]; Protocol Last Admin: 10/26/21 08:30 Dose: 10 mg Apixaban (Apixaban 2.5 Mg Tablet) 2.5 mg PO BID [facility] Last Admin: 10/26/21 08:30 Dose: 2.5 mg Atorvastatin Calcium (Atorvastatin Calcium 40 Mg Tablet) 40 mg PO BEDTIME [facility] Last Admin: 10/25/21 20:22 Dose: 40 mg Calcium Carbonate/Cholecalciferol (Calcium + Vitamin D 250 Mg Tablet) 500 mg PO DAILY [facility] Last Admin: 10/26/21 08:28 Dose: 500 mg Clonazepam (Clonazepam 0.5 Mg Tablet) 0.25 mg PO BID [facility] Last Admin: 10/26/21 08:29 Dose: 0.25 mg Digoxin (Digoxin 0.125 Mg Tablet) 0.125 mg PO TuWeThFr@0900 [facility] Last Admin: 10/26/21 08:42 Dose: 0.125 mg Duloxetine HCl (Duloxetine Hcl 30 Mg Capsule.Dr) 30 mg PO BID [facility] Last Admin: 10/26/21 08:28 Dose: 30 mg Fluoxetine HCl (Fluoxetine Hcl Oral Solution 20 Mg/5 Ml Solution) 10 mg PO DAILY PRN PRN Reason: if pt refuses duloxetine Hydroxyzine HCl (Hydroxyzine Hcl 25 Mg Tablet) 25 mg PO Q6H PRN PRN Reason: Anxiety Magnesium Hydroxide (Milk Of Magnesia 30 Ml Oral.Susp) 30 ml PO DAILY PRN PRN Reason: Constipation Metoprolol Tartrate (Metoprolol Tartrate 100 Mg Tablet) 100 mg PO BID [facility]; Protocol Last Admin: 10/26/21 08:28 Dose: 100 mg Mirtazapine (Mirtazapine 15 Mg Tablet) 15 mg PO BEDTIME [facility] Last Admin: 10/25/21 20:23 Dose: 15 mg Olanzapine (Olanzapine 2.5 Mg Tablet) 2.5 mg PO Q4H PRN PRN Reason: Psychosis Last Admin: 10/23/21 22:27 Dose: 2.5 mg Olanzapine (Olanzapine 2.5 Mg Tablet) 2.5 mg PO BID [facility] Last Admin: 10/26/21 08:29 Dose: 2.5 mg Trazodone HCl (Trazodone Hcl 50 Mg Tablet) 50 mg PO BEDTIME PRN PRN Reason: Insomnia Last Admin: 10/23/21 22:27 Dose: 50 mg Home Medications Medication Instructions Recorded Confirmed Last Taken Type amlodipine 10 mg tablet 10 mg PO DAILY 03/16/20 10/22/21 10/22/21 History 10 mg calcium carbonate 600 mg-vitamin 1 tab PO DAILY 09/07/20 10/22/21 10/22/21 History D3 20 mcg (800 unit) tablet 1 tab (Caltrate with Vitamin D3) mirtazapine 15 mg tablet 15 mg PO BEDTIME 06/06/21 10/22/21 10/21/21 History 15 mg Physical Exam Vital Signs and Narrative: Vital Signs: Last Vital Signs Temp 97.1 F 10/26/21 06:00 Pulse 86 10/26/21 06:00 Resp 18 10/26/21 06:00 BP 132/79 10/26/21 06:00 Pulse Ox 95 10/26/21 06:00 O2 Del Method 10/26/21 06:00 BMI result Body Mass Index 18.1 Constitutional - Awake and Alert, No apparent distress Eyes - PERRLA, EOMI Cardiovascular - S1S2, irregularly irregular, No edema Respiratory - Normal lung expansion, Normal respiratory effort, No respiratory distress, CTA bilaterally Gastrointestinal - NT / ND; +BS; No rebound or guarding Extremities - no calf tenderness bilaterally, no swelling Skin - Warm/Dry Neurological - Alert & oriented x3, CN II-XII in tact. Psychological - Appropriate affect Results Labs CBC and Chem 7: 10/25/21 09:45 Assessment and Plan (1) Major depressive disorder, recurrent severe without psychotic features: Status: Acute (2) Atrial fibrillation with rapid ventricular response: Status: Acute Plan 81 year old female with history of mdd, dementia, diastolic heart failure, htn, and persistent atrial fibrillation admitted to psychiatry seen in consult for medical evaluation prior to ECT. Afib has been stable with controlled rate. Continue digoxin, metoprolol, and apixiban. At this time no medical contraindication for ECT. Agree with clearance recommendations per cardiology on 10/22/21.
[2021-10-26 20:43] VITALS: BP 116/55; PULSE 89; RESP 18; TEMP 36.9; O2SAT 96
[2021-10-26] MEDS: Mirtazapine 15 MG TABLET PO (21:17)
[2021-10-26] MEDS: Atorvastatin Calcium 40 MG TABLET PO (21:17)
--- NOTE | 2021-10-26 22:52 | HO.PSYCHPN ---
Subjective Subjective Date of Service: 10/26/21 Reason For Visit: Depression Subjective Notes: Conditional Voluntary Healthcare Proxy: Yes Interim History: Spoke again with Healthcare proxy Suleman who gives informed consent ECT aware of somewhat increased cardiac risk and other side effects. Try to discuss this with patient who did not refuse or disagree but stated I can not along with other tasks such as dressing eating which she than the does to. She is speaking with her family. She knows she is at [facility] was able to state that she in live with her daughter but that her daughter lived with her and her house. Case reviewed with Dr. Reynaga and with hospital service Mental Status Exam Mental Status Exam Narrative: Ruminating repeatedly I can not do it admits to feeling severely depressed she has constricted no she is hospital refuses most for further testing Patient Appearance: Disheveled Patient Orientation: Person Level of Consciousness: Awake Patient Behavior: Guarded, Passive and Crying Mood Description: Constricted and Depressed Affect Description: Constricted, Depressed and Apprehensive Hallucinations: None Delusions: Not Present Depressive Symptoms: Increased Anxiety, Crying Spells and Thoughts of /Suicide Diagnostics Vital Signs (24Hr): Vital Signs - 24 hr 10/26/21 06:00 10/26/21 20:43 Temperature 97.1 F 98.5 F Pulse Rate 86 89 Respiratory Rate 18 18 Blood Pressure 132/79 116/55 L Pulse Oximetry 95 96 Oxygen Delivery Method Room Air Room Air BMI result Body Mass Index 18.1 Labs Results: 10/25/21 09:45 Labs: Laboratory Results - last 48 hr 10/25/21 09:45 Sodium 140 Potassium 4.2 Chloride 104 Carbon Dioxide 27 Anion Gap 13 BUN 17 H Creatinine 0.77 Estim Creat Clear Calc 37.4 Estimated GFR > 60 Fasting Glucose 101 H Calcium 9.2 Total Bilirubin 0.5 AST 23 ALT 44 H Alkaline Phosphatase 62 Total Protein 5.9 L Albumin 3.4 L Medications Medications Current Medications Acetaminophen (Acetaminophen 325 Mg Tablet) 650 mg PO Q6H PRN PRN Reason: Pain, Mild (Pain Scale 1-3) Last Admin: 10/25/21 11:05 Dose: 650 mg Al Hydroxide/Mg Hydroxide (Magnesium Hydrox/Alum Hydrox 30 Ml Oral.Susp) 30 ml PO Q6H PRN PRN Reason: Heartburn/Nausea Amlodipine Besylate (Amlodipine Besylate 10 Mg Tablet) 10 mg PO DAILY [facility]; Protocol Last Admin: 10/26/21 08:30 Dose: 10 mg Apixaban (Apixaban 2.5 Mg Tablet) 2.5 mg PO BID [facility] Last Admin: 10/26/21 21:17 Dose: 2.5 mg Atorvastatin Calcium (Atorvastatin Calcium 40 Mg Tablet) 40 mg PO BEDTIME [facility] Last Admin: 10/26/21 21:17 Dose: 40 mg Calcium Carbonate/Cholecalciferol (Calcium + Vitamin D 250 Mg Tablet) 500 mg PO DAILY [facility] Last Admin: 10/26/21 08:28 Dose: 500 mg Clonazepam (Clonazepam 0.5 Mg Tablet) 0.25 mg PO BID [facility] Last Admin: 10/26/21 21:16 Dose: 0.25 mg Digoxin (Digoxin 0.125 Mg Tablet) 0.125 mg PO TuWeThFr@0900 [facility] Last Admin: 10/26/21 08:42 Dose: 0.125 mg Duloxetine HCl (Duloxetine Hcl 30 Mg Capsule.Dr) 30 mg PO BID [facility] Last Admin: 10/26/21 21:17 Dose: 30 mg Fluoxetine HCl (Fluoxetine Hcl Oral Solution 20 Mg/5 Ml Solution) 10 mg PO DAILY PRN PRN Reason: if pt refuses duloxetine Hydroxyzine HCl (Hydroxyzine Hcl 25 Mg Tablet) 25 mg PO Q6H PRN PRN Reason: Anxiety Magnesium Hydroxide (Milk Of Magnesia 30 Ml Oral.Susp) 30 ml PO DAILY PRN PRN Reason: Constipation Metoprolol Tartrate (Metoprolol Tartrate 100 Mg Tablet) 100 mg PO BID [facility]; Protocol Last Admin: 10/26/21 21:17 Dose: 100 mg Mirtazapine (Mirtazapine 15 Mg Tablet) 15 mg PO BEDTIME [facility] Last Admin: 10/26/21 21:17 Dose: 15 mg Olanzapine (Olanzapine 2.5 Mg Tablet) 2.5 mg PO Q4H PRN PRN Reason: Psychosis Last Admin: 10/23/21 22:27 Dose: 2.5 mg Olanzapine (Olanzapine 2.5 Mg Tablet) 2.5 mg PO BID [facility] Last Admin: 10/26/21 21:17 Dose: 2.5 mg Trazodone HCl (Trazodone Hcl 50 Mg Tablet) 50 mg PO BEDTIME PRN PRN Reason: Insomnia Last Admin: 10/23/21 22:27 Dose: 50 mg Allergies Allergies Allergy/AdvReac Type Severity Reaction Status Date / Time morphine AdvReac Severe Alternate Verified 09/27/21 10:25 mental status Assessment & Plan Assessment & Plan (1) Major depressive disorder, recurrent severe without psychotic features: Status: Acute Code(s): F33.2 - Major depressive disorder, recurrent severe without psychotic features Assessment and Plan: Continue Cymbalta dose lowered with renal insufficiency check labs in a.m. discussion healthcare proxy Check labs in a.m. consider ECT try and differentiate cognitive issues versus depression difficult to tease out 11/25/2021 Cardiology consult reviewed also discussed case with hospitalist service informed consent obtained try to review treatment ECT with patient. EKG shows AFib in the 80s Give metoprolol in morning prior to treatment (2) HTN (hypertension): Status: Acute Code(s): I10 - Essential (primary) hypertension (3) Atrial fibrillation with rapid ventricular response: Status: Acute Code(s): I48.91 - Unspecified atrial fibrillation Assessment and Plan: Continue metoprolol monitor rate Plan Patient severely depressed and withdrawn some intake noted but significantly decreased. Some periods of elevated mood states and talking about prostitutes somewhat pressured has been intermittently observed per but generally severely depressed withdrawn poor concentration attention hopeless helpless generally not very forthcoming guarded depressed sad sh of her and daughter I spent minutes with the patient and/or on the patient floor today, greater than?50% of which was spent counseling/coordinating care. Reason for contiued inpatient stay Substantial Risk for: harm to self, rapid decompensation and med/psych decompensation
[2021-10-27] VITALS (12 sets, daily range): BP systolic 111–162; BP diastolic 56–103; PULSE 69–99; RESP 14–22; TEMP 35.9–36.9; O2SAT 95–97
[2021-10-27] MEDS: Metoprolol Tartrate 100 MG TABLET PO ×2 (05:50→20:54)
--- NOTE | 2021-10-27 14:11 | MHC.CLN ---
Addendum entered by Lauren Abraham RD 10/27/21 14:13: RD TO FOLLOW WEEKLY. Original Note: F/U PATIENT WITH ECT TREATMENT TODAY AND HAD NOT EATEN BREAKFAST OR LUNCH AT TIME OF VISIT. STAFF REPORTS THAT PATIENT FED SELF YESTERDAY. RESUME REGULAR DIET WITH ENSURE TID WHEN ABLE.
--- NOTE | 2021-10-27 14:49 | MHC.SHP ---
Pre-Procedural Eval Section A Date of Service: 10/27/21 The patient is an INPATIENT: Yes Changes since office visit: Yes New Medical Problems and Yes Changes in Medication; No Cold of Flu in the past 2 weeks and No Patient answered all questions The History & Physical has been completed within 30 days and I have reviewed it.: Yes Section B Chief Complaint: Depression Allergies: Allergies Allergy/AdvReac Type Severity Reaction Status Date / Time morphine AdvReac Severe Alternate Verified 09/27/21 10:25 mental status Plan I have reviewed the history and physical and performed a pertinent physical examination on my patient. No changes have occurred unless specified.
--- NOTE | 2021-10-27 15:15 | HO.ANESPROP2 ---
[facility] Active Problems Active Problems: All Active Problems (Updated 10/27/21 @ 00:03 by Treva Gonzalez) Major depressive disorder, recurrent severe without psychotic features (Acute) Atrial fibrillation with rapid ventricular response (Acute) Major depressive disorder (Acute) Delusion (Acute) Dementia (Acute) Compression fracture of T9 vertebra (Acute) E coli bacteremia (Acute) Ocular melanoma (Acute) Delusions (Acute) Bacteriuria (Acute) Depression (Acute) NATE (acute kidney injury) (Acute) Diarrhea (Acute) Uncontrolled hypertension (Acute) Acute diastolic heart failure (Acute) Pleural effusion (Acute) Pleural effusion (Acute) Hemopneumothorax (Acute) Fall (Acute) Fracture, rib (Acute ~02/2020) Atrial fibrillation with rapid ventricular response (Acute) HTN (hypertension) (Acute) Past Medical History Medical History Anxiety Atrial fibrillation with controlled ventricular rate Dementia Depression Diastolic heart failure GERD (gastroesophageal reflux disease) History of rib fracture HTN (hypertension) Major depressive disorder, 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 Father No problems noted. Family history of problems with anesthesia: No Surgical History Surgical History No pertinent past surgical history History of Problems with Anesthesia: No Social History Social History Household Members: Family Household Members Other:: Son, Akil Joe Housing: House Housing Other:: [facility] Do you presently have visiting nurse or other home services: Yes ([facility] services) Unable to assess alcohol history related to: Unable to respond Alcohol intake: never Patient Tobacco Use Status: Never used Tobacco Second Hand Smoke Exposure: No Use of substances other than those prescribed or required for medical reasons: No Currently Displaying Signs/Symptoms of Drug Intoxication Withdrawal: No Have you been hit, kicked, punched, or otherwise hurt by someone within the past year? If so, by whom?: No Do you feel safe in your current relationship?: No Current Relationship Is there a partner from a previous relationship who is making you feel unsafe now?: No Advance Directives: Yes Advance Directives Information Provided: Yes (MOLST) Advance Directives on File: Yes Advance Directives Date on File: 04/19/21 Do you have thoughts of harming others: None Do you have a plan to hurt others: No Plan Recently lost weight without trying: Yes How much weight loss: 24-33 pounds Eating poorly because of decreased appetite: Yes Nutrition screen score: 6 Nutrition Risks: Poor intake 0-25% >4 days Patient : No : No Poor oral hygiene: No service: No Current occupational status: retired Sexual orientation: Straight/Heterosexual Meds Allergies Allergy/AdvReac Type Severity Reaction Status Date / Time morphine AdvReac Severe Alternate Verified 09/27/21 10:25 mental status Active Medications: Current Medications Acetaminophen (Acetaminophen 325 Mg Tablet) 650 mg PO Q6H PRN PRN Reason: Pain, Mild (Pain Scale 1-3) Last Admin: 10/25/21 11:05 Dose: 650 mg Al Hydroxide/Mg Hydroxide (Magnesium Hydrox/Alum Hydrox 30 Ml Oral.Susp) 30 ml PO Q6H PRN PRN Reason: Heartburn/Nausea Amlodipine Besylate (Amlodipine Besylate 10 Mg Tablet) 10 mg PO DAILY [facility]; Protocol Last Admin: 10/26/21 08:30 Dose: 10 mg Apixaban (Apixaban 2.5 Mg Tablet) 2.5 mg PO BID [facility] Last Admin: 10/26/21 21:17 Dose: 2.5 mg Atorvastatin Calcium (Atorvastatin Calcium 40 Mg Tablet) 40 mg PO BEDTIME [facility] Last Admin: 10/26/21 21:17 Dose: 40 mg Calcium Carbonate/Cholecalciferol (Calcium + Vitamin D 250 Mg Tablet) 500 mg PO DAILY [facility] Last Admin: 10/26/21 08:28 Dose: 500 mg Clonazepam (Clonazepam 0.5 Mg Tablet) 0.25 mg PO BID [facility] Last Admin: 10/26/21 21:16 Dose: 0.25 mg Digoxin (Digoxin 0.125 Mg Tablet) 0.125 mg PO TuWeThFr@0900 [facility] Last Admin: 10/26/21 08:42 Dose: 0.125 mg Duloxetine HCl (Duloxetine Hcl 30 Mg Capsule.Dr) 30 mg PO BID [facility] Last Admin: 10/26/21 21:17 Dose: 30 mg Fluoxetine HCl (Fluoxetine Hcl Oral Solution 20 Mg/5 Ml Solution) 10 mg PO DAILY PRN PRN Reason: if pt refuses duloxetine Hydroxyzine HCl (Hydroxyzine Hcl 25 Mg Tablet) 25 mg PO Q6H PRN PRN Reason: Anxiety Magnesium Hydroxide (Milk Of Magnesia 30 Ml Oral.Susp) 30 ml PO DAILY PRN PRN Reason: Constipation Metoprolol Tartrate (Metoprolol Tartrate 100 Mg Tablet) 100 mg PO BID [facility]; Protocol Last Admin: 10/27/21 05:50 Dose: 100 mg Mirtazapine (Mirtazapine 15 Mg Tablet) 15 mg PO BEDTIME [facility] Last Admin: 10/26/21 21:17 Dose: 15 mg Olanzapine (Olanzapine 2.5 Mg Tablet) 2.5 mg PO Q4H PRN PRN Reason: Psychosis Last Admin: 10/23/21 22:27 Dose: 2.5 mg Olanzapine (Olanzapine 2.5 Mg Tablet) 2.5 mg PO BID [facility] Last Admin: 10/26/21 21:17 Dose: 2.5 mg Trazodone HCl (Trazodone Hcl 50 Mg Tablet) 50 mg PO BEDTIME PRN PRN Reason: Insomnia Last Admin: 10/23/21 22:27 Dose: 50 mg Home Medications Medication Instructions Recorded Confirmed Last Taken Type amlodipine 10 mg tablet 10 mg PO DAILY 03/16/20 10/22/21 10/22/21 History 10 mg calcium carbonate 600 mg-vitamin 1 tab PO DAILY 09/07/20 10/22/21 10/22/21 History D3 20 mcg (800 unit) tablet 1 tab (Caltrate with Vitamin D3) mirtazapine 15 mg tablet 15 mg PO BEDTIME 06/06/21 10/22/21 10/21/21 History 15 mg Exam Exam Date and Time: October 27, 2021 1515 Height,Weight and Vital Signs: Height 5 ft Weight 42.1 kg Last Vital Signs Temp 98.4 F 10/27/21 13:44 Pulse 74 10/27/21 13:44 Resp 22 H 10/27/21 13:44 BP 150/88 H 10/27/21 13:44 Pulse Ox 96 10/27/21 13:44 O2 Del Method 10/27/21 13:44 Pertinent Lab Results Pertinent Lab Results: Laboratory Tests 10/22/21 10/23/21 10/25/21 15:10 07:50 09:45 Sodium 142 140 Potassium 4.1 4.2 Chloride 107 104 Carbon Dioxide 27 27 Anion Gap 12 13 BUN 19 H 17 H Creatinine 0.83 0.77 Estim Creat Clear Calc 35.3 37.4 Estimated GFR > 60 > 60 Fasting Glucose 97 101 H Calcium 9.0 9.2 Total Bilirubin 0.5 0.5 AST 23 23 ALT 44 H 44 H Alkaline Phosphatase 55 62 Total Protein 5.5 L 5.9 L Albumin 3.3 L 3.4 L Triglycerides 51 Cholesterol 123 LDL Cholesterol, Calc 54 HDL Cholesterol 59 COVID-19 (KYLEE) Negative COVID-19 Clin Com See Note Airway Heart: irreg. Lungs: CTA Assessment and Plan Final Anesthetic Review Family History of Problems with Anesthesia: No History of Problems with Anesthesia: No ASA Class: III and Emergency Final Preanesthetic Review: No Changes in Pt Med Stat, Meds/Allgs Chart Reviewed, Consent Obtained/Reviewed and Anes Risks/Benef Reviewed Patient Risk: Intermediate Procedure Risk: Low Anesthetic Plan Anesthetic Plan: GA Disposition: Standard PACU
--- NOTE | 2021-10-27 15:19 | HO.POSTANES ---
Post Anesthesia Evaluation Post Anesthesia Evaluation Vital Signs: Vital Signs Temp Pulse Resp BP Pulse Ox O2 Del Method 10/27/21 13:44 98.4 F 74 22 H 150/88 H 96 Room Air 10/27/21 05:58 97.2 F 75 16 140/65 H 10/27/21 05:37 97.2 F 75 16 140/65 H 96 Room Air Anesthesia: General Mental Status: Awake and Sedated Pain Control: Satisfactory Nausea/Vomiting: None Hydration: Adequate Anesthesia-Related Issues: No Anes. Related Issues
[2021-10-27] MEDS: Acetaminophen 325 MG TABLET 650 MG PO (15:43)
[2021-10-27] MEDS: amLODIPine Besylate 10 MG TABLET PO (17:20)
[2021-10-27] MEDS: DULoxetine HCl 30 MG CAPSULE.DR PO (17:21)
[2021-10-27] MEDS: Calcium + Vitamin D 250 MG TABLET 500 MG PO (17:21)
[2021-10-27] MEDS: Digoxin 0.125 MG TABLET PO (17:21)
--- NOTE | 2021-10-27 20:34 | HO.PSYCHPN ---
Subjective Subjective Date of Service: 10/27/21 Reason For Visit: Depression Subjective Notes: Conditional Voluntary Healthcare Proxy: Yes Interim History: See ECT note patient had 1st treatment unfortunately had to wait till the afternoon. Her son healthcare proxy gave informed consent Medication Compliance: Intermittent Review of Systems Medical Review of Systems: unchanged Mental Status Exam Mental Status Exam Narrative: Ruminating repeatedly I can not do it when faced with any task Patient Appearance: Disheveled Patient Orientation: Person, Place and Situation Level of Consciousness: Awake Patient Behavior: Guarded, Passive and Crying Mood Description: Constricted and Depressed Affect Description: Constricted, Depressed and Apprehensive Speech Pattern: Impoverished and Monotone Memory Description: Episodic Impaired Hallucinations: None Delusions: Not Present Depressive Symptoms: Increased Anxiety, Crying Spells and Thoughts of /Suicide Diagnostics Vital Signs (24Hr): Vital Signs - 24 hr 10/30/21 09:00 10/30/21 13:00 Temperature 97.3 F 98.2 F Pulse Rate 89 88 Respiratory Rate 18 20 Blood Pressure 131/87 115/80 Pulse Oximetry 100 98 Oxygen Delivery Method Room Air Room Air BMI result Body Mass Index 18.1 Labs Results: 10/25/21 09:45 Medications Medications Current Medications Acetaminophen (Acetaminophen 325 Mg Tablet) 650 mg PO Q6H PRN PRN Reason: Pain, Mild (Pain Scale 1-3) Last Admin: 10/27/21 15:43 Dose: 650 mg Al Hydroxide/Mg Hydroxide (Magnesium Hydrox/Alum Hydrox 30 Ml Oral.Susp) 30 ml PO Q6H PRN PRN Reason: Heartburn/Nausea Amlodipine Besylate (Amlodipine Besylate 10 Mg Tablet) 10 mg PO DAILY [facility]; Protocol Last Admin: 10/30/21 08:42 Dose: 10 mg Apixaban (Apixaban 2.5 Mg Tablet) 2.5 mg PO BID [facility] Last Admin: 10/30/21 19:48 Dose: 2.5 mg Atorvastatin Calcium (Atorvastatin Calcium 40 Mg Tablet) 40 mg PO BEDTIME [facility] Last Admin: 10/30/21 19:48 Dose: 40 mg Calcium Carbonate/Cholecalciferol (Calcium + Vitamin D 250 Mg Tablet) 500 mg PO DAILY [facility] Last Admin: 10/30/21 08:42 Dose: 500 mg Digoxin (Digoxin 0.125 Mg Tablet) 0.125 mg PO TuWeThFr@0900 [facility] Last Admin: 10/27/21 17:21 Dose: 0.125 mg Duloxetine HCl (Duloxetine Hcl 30 Mg Capsule.Dr) 30 mg PO BID [facility] Last Admin: 10/30/21 19:48 Dose: 30 mg Fluoxetine HCl (Fluoxetine Hcl Oral Solution 20 Mg/5 Ml Solution) 10 mg PO DAILY PRN PRN Reason: if pt refuses duloxetine Hydroxyzine HCl (Hydroxyzine Hcl 25 Mg Tablet) 25 mg PO Q6H PRN PRN Reason: Anxiety Magnesium Hydroxide (Milk Of Magnesia 30 Ml Oral.Susp) 30 ml PO DAILY PRN PRN Reason: Constipation Metoprolol Tartrate (Metoprolol Tartrate 100 Mg Tablet) 100 mg PO BID [facility]; Protocol Last Admin: 10/30/21 19:49 Dose: 100 mg Mirtazapine (Mirtazapine 15 Mg Tablet) 15 mg PO BEDTIME [facility] Last Admin: 10/30/21 19:49 Dose: 15 mg Olanzapine (Olanzapine 2.5 Mg Tablet) 2.5 mg PO Q4H PRN PRN Reason: Psychosis Last Admin: 10/23/21 22:27 Dose: 2.5 mg Olanzapine (Olanzapine 2.5 Mg Tablet) 2.5 mg PO BID [facility] Last Admin: 10/30/21 19:49 Dose: 2.5 mg Trazodone HCl (Trazodone Hcl 50 Mg Tablet) 50 mg PO BEDTIME PRN PRN Reason: Insomnia Last Admin: 10/23/21 22:27 Dose: 50 mg Allergies Allergies Allergy/AdvReac Type Severity Reaction Status Date / Time morphine AdvReac Severe Alternate Verified 09/27/21 10:25 mental status Assessment & Plan Assessment & Plan (1) Major depressive disorder, recurrent severe without psychotic features: Status: Acute Code(s): F33.2 - Major depressive disorder, recurrent severe without psychotic features Assessment and Plan: Continue Cymbalta dose lowered with renal insufficiency check labs in a.m. discussion healthcare proxy Check labs in a.m. consider ECT try and differentiate cognitive issues versus depression difficult to tease out 10/26/2021 Cardiology consult reviewed also discussed case with hospitalist service informed consent obtained try to review treatment ECT with patient. EKG shows AFib in the 80s Give metoprolol in morning prior to treatment 10/28/2021: No med changes, continue with ECT, last 10/27, tolerated procedure (2) HTN (hypertension): Status: Acute Code(s): I10 - Essential (primary) hypertension (3) Atrial fibrillation with rapid ventricular response: Status: Acute Code(s): I48.91 - Unspecified atrial fibrillation Assessment and Plan: Continue metoprolol monitor rate Plan Patient severely depressed and withdrawn some intake noted but significantly decreased. Some periods of elevated mood states and talking about prostitutes somewhat pressured has been intermittently observed per but generally severely depressed withdrawn poor concentration attention hopeless helpless generally not very forthcoming guarded depressed sad sh of her and daughter I spent minutes with the patient and/or on the patient floor today, greater than?50% of which was spent counseling/coordinating care. Reason for contiued inpatient stay Substantial Risk for: harm to self
[2021-10-27] MEDS: clonazePAM 0.5 MG TABLET 0.25 MG PO (20:53)
[2021-10-27] MEDS: OLANZapine 2.5 MG TABLET PO (20:53)
[2021-10-27] MEDS: Mirtazapine 15 MG TABLET PO (20:54)
[2021-10-27] MEDS: Apixaban 2.5 MG TABLET PO (20:54)
[2021-10-27] MEDS: Atorvastatin Calcium 40 MG TABLET PO (20:54)
--- NOTE | 2021-10-27 22:22 | HO.ECTPROC ---
ECT Procedure Note Diagnosis/Treatment Date of Service: 10/30/21 Diagnosis: Major Depressive Disorder Current Treatment Number: 1 Treatment: Series Interval Clinical Notes: pt anxious preop responds reassurance case reviewed with anesthesia ECT Settings Device: THYMATRON DGx Electrode Placement: Right Unilateral Program/Pulse Width: 0.25 Energy Percent: 100 Seizure Duration By EEG (in seconds): 52 Medications Administration General Anesthetic: Etomidate (10) Muscle Relaxant: Succinylcholine Ancillary Medications Miscillaneous Medications: Propofol (15) Airway Management Airway Management: Bag Mask Ventilation Treatment Recommendations No Changes Recommended: No change Pt Tolerated Procedure w/o Issue: Yes
--- NOTE | 2021-10-28 09:22 | HO.PSYCHPN ---
Subjective Subjective Date of Service: 10/28/21 Reason For Visit: Depression Interim History: I attempted to evaluate pt this morning, she says i cant check in with you, rosalinda kelly, i cant talk. Medication Compliance: Yes Side effects from medications: No Attending Groups: Intermittent Review of Systems Acute medical concerns: No Medical Review of Systems: unchanged Mental Status Exam Mental Status Exam Narrative: Ruminating repeatedly I can not do it admits to feeling severely depressed she has constricted no she is hospital refuses most for further testing Patient Appearance: Disheveled Patient Orientation: Person Level of Consciousness: Awake Patient Behavior: Guarded, Passive and Crying Mood Description: Constricted and Depressed Affect Description: Constricted, Depressed and Apprehensive Hallucinations: None Delusions: Not Present Depressive Symptoms: Increased Anxiety, Crying Spells and Thoughts of /Suicide Diagnostics Vital Signs (24Hr): Vital Signs - 24 hr 10/27/21 13:44 10/27/21 15:12 10/27/21 15:17 Temperature 98.4 F 97.1 F Pulse Rate 74 94 99 Respiratory Rate 22 H 16 16 Blood Pressure 150/88 H 146/81 H 157/103 H Pulse Oximetry 96 95 96 Oxygen Delivery Method Room Air Nasal Cannula with ETCO2 Nasal Cannula with ETCO2 Oxygen Flow Rate 3 3 10/27/21 15:22 10/27/21 15:27 10/27/21 15:48 Temperature 98.0 F Pulse Rate 73 97 94 Respiratory Rate 22 H 14 14 Blood Pressure 162/84 H 146/94 H 149/89 H Pulse Oximetry 97 95 95 Oxygen Delivery Method Nasal Cannula with ETCO2 Room Air Room Air Oxygen Flow Rate 3 10/27/21 16:25 10/27/21 16:03 10/27/21 16:25 Temperature 97.3 F 97.3 F Pulse Rate 71 88 71 Respiratory Rate 16 17 16 Blood Pressure 154/74 H 152/82 H 154/74 H Pulse Oximetry 97 97 97 Oxygen Delivery Method Room Air Room Air Oxygen Flow Rate 10/27/21 20:45 Temperature 97.7 F Pulse Rate 96 Respiratory Rate 16 Blood Pressure 118/56 L Pulse Oximetry 95 Oxygen Delivery Method Room Air Oxygen Flow Rate BMI result Body Mass Index 18.1 Labs Results: 10/25/21 09:45 Medications Medications Current Medications Acetaminophen (Acetaminophen 325 Mg Tablet) 650 mg PO Q6H PRN PRN Reason: Pain, Mild (Pain Scale 1-3) Last Admin: 10/27/21 15:43 Dose: 650 mg Al Hydroxide/Mg Hydroxide (Magnesium Hydrox/Alum Hydrox 30 Ml Oral.Susp) 30 ml PO Q6H PRN PRN Reason: Heartburn/Nausea Amlodipine Besylate (Amlodipine Besylate 10 Mg Tablet) 10 mg PO DAILY [facility]; Protocol Last Admin: 10/27/21 17:20 Dose: 10 mg Apixaban (Apixaban 2.5 Mg Tablet) 2.5 mg PO BID [facility] Last Admin: 10/27/21 20:54 Dose: 2.5 mg Atorvastatin Calcium (Atorvastatin Calcium 40 Mg Tablet) 40 mg PO BEDTIME [facility] Last Admin: 10/27/21 20:54 Dose: 40 mg Calcium Carbonate/Cholecalciferol (Calcium + Vitamin D 250 Mg Tablet) 500 mg PO DAILY [facility] Last Admin: 10/27/21 17:21 Dose: 500 mg Digoxin (Digoxin 0.125 Mg Tablet) 0.125 mg PO TuWeThFr@0900 [facility] Last Admin: 10/27/21 17:21 Dose: 0.125 mg Duloxetine HCl (Duloxetine Hcl 30 Mg Capsule.Dr) 30 mg PO BID [facility] Last Admin: 10/27/21 20:58 Dose: Not Given Fluoxetine HCl (Fluoxetine Hcl Oral Solution 20 Mg/5 Ml Solution) 10 mg PO DAILY PRN PRN Reason: if pt refuses duloxetine Hydroxyzine HCl (Hydroxyzine Hcl 25 Mg Tablet) 25 mg PO Q6H PRN PRN Reason: Anxiety Magnesium Hydroxide (Milk Of Magnesia 30 Ml Oral.Susp) 30 ml PO DAILY PRN PRN Reason: Constipation Metoprolol Tartrate (Metoprolol Tartrate 100 Mg Tablet) 100 mg PO BID [facility]; Protocol Last Admin: 10/27/21 20:54 Dose: 100 mg Mirtazapine (Mirtazapine 15 Mg Tablet) 15 mg PO BEDTIME [facility] Last Admin: 10/27/21 20:54 Dose: 15 mg Olanzapine (Olanzapine 2.5 Mg Tablet) 2.5 mg PO Q4H PRN PRN Reason: Psychosis Last Admin: 10/23/21 22:27 Dose: 2.5 mg Olanzapine (Olanzapine 2.5 Mg Tablet) 2.5 mg PO BID [facility] Last Admin: 10/27/21 20:53 Dose: 2.5 mg Trazodone HCl (Trazodone Hcl 50 Mg Tablet) 50 mg PO BEDTIME PRN PRN Reason: Insomnia Last Admin: 10/23/21 22:27 Dose: 50 mg Allergies Allergies Allergy/AdvReac Type Severity Reaction Status Date / Time morphine AdvReac Severe Alternate Verified 09/27/21 10:25 mental status Assessment & Plan Assessment & Plan (1) Major depressive disorder, recurrent severe without psychotic features: Status: Acute Code(s): F33.2 - Major depressive disorder, recurrent severe without psychotic features Assessment and Plan: Continue Cymbalta dose lowered with renal insufficiency check labs in a.m. discussion healthcare proxy Check labs in a.m. consider ECT try and differentiate cognitive issues versus depression difficult to tease out 10/26/2021 Cardiology consult reviewed also discussed case with hospitalist service informed consent obtained try to review treatment ECT with patient. EKG shows AFib in the 80s Give metoprolol in morning prior to treatment 10/28/2021: No med changes, continue with ECT, last 10/27, tolerated procedure (2) HTN (hypertension): Status: Acute Code(s): I10 - Essential (primary) hypertension (3) Atrial fibrillation with rapid ventricular response: Status: Acute Code(s): I48.91 - Unspecified atrial fibrillation Assessment and Plan: Continue metoprolol monitor rate Plan Patient severely depressed and withdrawn some intake noted but significantly decreased. Some periods of elevated mood states and talking about prostitutes somewhat pressured has been intermittently observed per but generally severely depressed withdrawn poor concentration attention hopeless helpless generally not very forthcoming guarded depressed sad sh of her and daughter I spent minutes with the patient and/or on the patient floor today, greater than?50% of which was spent counseling/coordinating care. Reason for contiued inpatient stay Substantial Risk for: inability to function, rapid decompensation and med/psych decompensation
[2021-10-28 09:31] VITALS: BP 120/62; PULSE 89; RESP 15; TEMP 36.4; O2SAT 98
[2021-10-28] MEDS: Metoprolol Tartrate 100 MG TABLET PO ×2 (09:40→21:32)
[2021-10-28] MEDS: Calcium + Vitamin D 250 MG TABLET 500 MG PO (09:41)
[2021-10-28] MEDS: Apixaban 2.5 MG TABLET PO ×2 (09:41→21:32)
[2021-10-28] MEDS: DULoxetine HCl 30 MG CAPSULE.DR PO ×2 (09:41→21:31)
[2021-10-28] MEDS: OLANZapine 2.5 MG TABLET PO ×2 (09:41→21:32)
[2021-10-28] MEDS: amLODIPine Besylate 10 MG TABLET PO (09:41)
[2021-10-28 13:30] VITALS: BP 132/62; PULSE 72; RESP 16; TEMP 36.4; O2SAT 96
[2021-10-28 21:25] VITALS: BP 104/56; PULSE 63; RESP 16; TEMP 36.9; O2SAT 96
[2021-10-28] MEDS: Atorvastatin Calcium 40 MG TABLET PO (21:31)
[2021-10-28] MEDS: Mirtazapine 15 MG TABLET PO (21:32)
[2021-10-29 08:20] VITALS: BP 130/59; PULSE 79; RESP 16; TEMP 36.6; O2SAT 95
[2021-10-29] MEDS: Calcium + Vitamin D 250 MG TABLET 500 MG PO (08:23)
[2021-10-29] MEDS: OLANZapine 2.5 MG TABLET PO ×2 (08:24→20:37)
[2021-10-29] MEDS: Apixaban 2.5 MG TABLET PO ×2 (08:24→20:37)
[2021-10-29] MEDS: DULoxetine HCl 30 MG CAPSULE.DR PO ×2 (08:24→20:36)
[2021-10-29] MEDS: Metoprolol Tartrate 100 MG TABLET PO ×2 (08:24→20:37)
[2021-10-29] MEDS: amLODIPine Besylate 10 MG TABLET PO (08:24)
--- NOTE | 2021-10-29 10:51 | P.PNPSI_ITS ---
Subjective Subjective Date of Service: 10/29/21 Reason For Visit: Depression Interim History: I spoke with pt's team and pt continues to appear anxious, depressed. She eats 50% of her meals, isolates in her room, will repeat ?I cant, I cant.? Still on 1:1 s/p ECT. Sleep is good. I spoke with pt, she says she is not too good, attributes this to a lot of depression and anxiety, a lot on my mind, I cant think of what I want. Says I couldnt eat my dinner or breakfast either. Says Im not ready for it for ECT. Often repeats I dont know, has some insight, im not myself. Medication Compliance: Yes Side effects from medications: No Attending Groups: Intermittent Review of Systems Acute medical concerns: No Medical Review of Systems: unchanged Mental Status Exam Mental Status Exam Narrative: Ruminating repeatedly I can not do it admits to feeling severely depressed she has constricted no she is hospital refuses most for further testing Patient Appearance: Disheveled Patient Orientation: Person Level of Consciousness: Awake Patient Behavior: Guarded, Passive and Crying Mood Description: Constricted and Depressed Affect Description: Constricted, Depressed and Apprehensive Hallucinations: None Delusions: Not Present Depressive Symptoms: Increased Anxiety, Crying Spells and Thoughts of /Suicide Diagnostics Vital Signs (24Hr): Vital Signs - 24 hr 10/28/21 13:30 10/28/21 21:25 10/29/21 08:20 Temperature 97.5 F 98.4 F 97.8 F Pulse Rate 72 63 79 Respiratory Rate 16 16 16 Blood Pressure 132/62 104/56 L 130/59 L Pulse Oximetry 96 96 95 Oxygen Delivery Method Room Air Room Air Room Air BMI result Body Mass Index 18.1 Labs Results: 10/25/21 09:45 Medications Medications Current Medications Acetaminophen (Acetaminophen 325 Mg Tablet) 650 mg PO Q6H PRN PRN Reason: Pain, Mild (Pain Scale 1-3) Last Admin: 10/27/21 15:43 Dose: 650 mg Al Hydroxide/Mg Hydroxide (Magnesium Hydrox/Alum Hydrox 30 Ml Oral.Susp) 30 ml PO Q6H PRN PRN Reason: Heartburn/Nausea Amlodipine Besylate (Amlodipine Besylate 10 Mg Tablet) 10 mg PO DAILY [facility]; Protocol Last Admin: 10/29/21 08:24 Dose: 10 mg Apixaban (Apixaban 2.5 Mg Tablet) 2.5 mg PO BID [facility] Last Admin: 10/29/21 08:24 Dose: 2.5 mg Atorvastatin Calcium (Atorvastatin Calcium 40 Mg Tablet) 40 mg PO BEDTIME [facility] Last Admin: 10/28/21 21:31 Dose: 40 mg Calcium Carbonate/Cholecalciferol (Calcium + Vitamin D 250 Mg Tablet) 500 mg PO DAILY [facility] Last Admin: 10/29/21 08:23 Dose: 500 mg Digoxin (Digoxin 0.125 Mg Tablet) 0.125 mg PO TuWeThFr@0900 [facility] Last Admin: 10/27/21 17:21 Dose: 0.125 mg Duloxetine HCl (Duloxetine Hcl 30 Mg Capsule.Dr) 30 mg PO BID [facility] Last Admin: 10/29/21 08:24 Dose: 30 mg Fluoxetine HCl (Fluoxetine Hcl Oral Solution 20 Mg/5 Ml Solution) 10 mg PO DAILY PRN PRN Reason: if pt refuses duloxetine Hydroxyzine HCl (Hydroxyzine Hcl 25 Mg Tablet) 25 mg PO Q6H PRN PRN Reason: Anxiety Magnesium Hydroxide (Milk Of Magnesia 30 Ml Oral.Susp) 30 ml PO DAILY PRN PRN Reason: Constipation Metoprolol Tartrate (Metoprolol Tartrate 100 Mg Tablet) 100 mg PO BID [facility]; Protocol Last Admin: 10/29/21 08:24 Dose: 100 mg Mirtazapine (Mirtazapine 15 Mg Tablet) 15 mg PO BEDTIME [facility] Last Admin: 10/28/21 21:32 Dose: 15 mg Olanzapine (Olanzapine 2.5 Mg Tablet) 2.5 mg PO Q4H PRN PRN Reason: Psychosis Last Admin: 10/23/21 22:27 Dose: 2.5 mg Olanzapine (Olanzapine 2.5 Mg Tablet) 2.5 mg PO BID [facility] Last Admin: 10/29/21 08:24 Dose: 2.5 mg Trazodone HCl (Trazodone Hcl 50 Mg Tablet) 50 mg PO BEDTIME PRN PRN Reason: Insomnia Last Admin: 10/23/21 22:27 Dose: 50 mg Allergies Allergies Allergy/AdvReac Type Severity Reaction Status Date / Time morphine AdvReac Severe Alternate Verified 09/27/21 10:25 mental status Assessment & Plan Assessment & Plan (1) Major depressive disorder, recurrent severe without psychotic features: Status: Acute Code(s): F33.2 - Major depressive disorder, recurrent severe without psychotic features Assessment and Plan: Continue Cymbalta dose lowered with renal insufficiency check labs in a.m. discussion healthcare proxy Check labs in a.m. consider ECT try and differentiate cognitive issues versus depression difficult to tease out 10/26/2021 Cardiology consult reviewed also discussed case with hospitalist service informed consent obtained try to review treatment ECT with patient. EKG shows AFib in the 80s Give metoprolol in morning prior to treatment 10/28/2021: No med changes, continue with ECT, last 10/27, tolerated procedure 10/29/2021: No med changes, has 1:1 (2) HTN (hypertension): Status: Acute Code(s): I10 - Essential (primary) hypertension (3) Atrial fibrillation with rapid ventricular response: Status: Acute Code(s): I48.91 - Unspecified atrial fibrillation Assessment and Plan: Continue metoprolol monitor rate Plan Patient severely depressed and withdrawn some intake noted but significantly decreased. Some periods of elevated mood states and talking about prostitutes somewhat pressured has been intermittently observed per but generally severely depressed withdrawn poor concentration attention hopeless helpless generally not very forthcoming guarded depressed sad sh of her and daughter I spent minutes with the patient and/or on the patient floor today, greater than?50% of which was spent counseling/coordinating care. Patient educated on: therapeutic strategies Reason for contiued inpatient stay Substantial Risk for: inability to function, rapid decompensation and med/psych decompensation
[2021-10-29 20:00] VITALS: BP 102/64; PULSE 92; RESP 22; TEMP 36.2; O2SAT 96
[2021-10-29] MEDS: Atorvastatin Calcium 40 MG TABLET PO (20:36)
[2021-10-29] MEDS: Mirtazapine 15 MG TABLET PO (20:36)
[2021-10-30] MEDS: OLANZapine 2.5 MG TABLET PO ×2 (08:42→19:49)
[2021-10-30] MEDS: Metoprolol Tartrate 100 MG TABLET PO ×2 (08:42→19:49)
[2021-10-30] MEDS: DULoxetine HCl 30 MG CAPSULE.DR PO ×2 (08:42→19:48)
[2021-10-30] MEDS: Calcium + Vitamin D 250 MG TABLET 500 MG PO (08:42)
[2021-10-30] MEDS: Apixaban 2.5 MG TABLET PO ×2 (08:42→19:48)
[2021-10-30] MEDS: amLODIPine Besylate 10 MG TABLET PO (08:42)
[2021-10-30 09:00] VITALS: BP 131/87; PULSE 89; RESP 18; TEMP 36.3; O2SAT 100
[2021-10-30 13:00] VITALS: BP 115/80; PULSE 88; RESP 20; TEMP 36.8; O2SAT 98
--- NOTE | 2021-10-30 13:26 | HO.PSYCHPN ---
Subjective Subjective Date of Service: 10/30/21 Reason For Visit: Depression Interim History: I spoke with pt's team, she is off 1:1 and has 5 min checks, doing well with this. I spoke with pt, she says luz had a bad day and that she needs help ordering food. Mood is very depressed, very anxious. Says I just want to go to bed and they wont let me. She did go to groups, colored a little bit. Still repeats I cant. Says she is cold but then turns down offer for sweater or blanket as she says this will make her hot. Medication Compliance: Yes Side effects from medications: No Attending Groups: Yes Review of Systems Acute medical concerns: No Medical Review of Systems: unchanged Mental Status Exam Mental Status Exam Narrative: Ruminating repeatedly I can not do it admits to feeling severely depressed she has constricted no she is hospital refuses most for further testing Patient Appearance: Disheveled Patient Orientation: Person Level of Consciousness: Awake Patient Behavior: Guarded, Passive and Crying Mood Description: Constricted and Depressed Affect Description: Constricted, Depressed and Apprehensive Hallucinations: None Delusions: Not Present Depressive Symptoms: Increased Anxiety, Crying Spells and Thoughts of /Suicide Diagnostics Vital Signs (24Hr): Vital Signs - 24 hr 10/29/21 20:00 10/30/21 09:00 Temperature 97.2 F 97.3 F Pulse Rate 92 89 Respiratory Rate 22 H 18 Blood Pressure 102/64 131/87 Pulse Oximetry 96 100 Oxygen Delivery Method Room Air Room Air BMI result Body Mass Index 18.1 Labs Results: 10/25/21 09:45 Medications Medications Current Medications Acetaminophen (Acetaminophen 325 Mg Tablet) 650 mg PO Q6H PRN PRN Reason: Pain, Mild (Pain Scale 1-3) Last Admin: 10/27/21 15:43 Dose: 650 mg Al Hydroxide/Mg Hydroxide (Magnesium Hydrox/Alum Hydrox 30 Ml Oral.Susp) 30 ml PO Q6H PRN PRN Reason: Heartburn/Nausea Amlodipine Besylate (Amlodipine Besylate 10 Mg Tablet) 10 mg PO DAILY [facility]; Protocol Last Admin: 10/30/21 08:42 Dose: 10 mg Apixaban (Apixaban 2.5 Mg Tablet) 2.5 mg PO BID [facility] Last Admin: 10/30/21 08:42 Dose: 2.5 mg Atorvastatin Calcium (Atorvastatin Calcium 40 Mg Tablet) 40 mg PO BEDTIME [facility] Last Admin: 10/29/21 20:36 Dose: 40 mg Calcium Carbonate/Cholecalciferol (Calcium + Vitamin D 250 Mg Tablet) 500 mg PO DAILY [facility] Last Admin: 10/30/21 08:42 Dose: 500 mg Digoxin (Digoxin 0.125 Mg Tablet) 0.125 mg PO TuWeThFr@0900 [facility] Last Admin: 10/27/21 17:21 Dose: 0.125 mg Duloxetine HCl (Duloxetine Hcl 30 Mg Capsule.Dr) 30 mg PO BID [facility] Last Admin: 10/30/21 08:42 Dose: 30 mg Fluoxetine HCl (Fluoxetine Hcl Oral Solution 20 Mg/5 Ml Solution) 10 mg PO DAILY PRN PRN Reason: if pt refuses duloxetine Hydroxyzine HCl (Hydroxyzine Hcl 25 Mg Tablet) 25 mg PO Q6H PRN PRN Reason: Anxiety Magnesium Hydroxide (Milk Of Magnesia 30 Ml Oral.Susp) 30 ml PO DAILY PRN PRN Reason: Constipation Metoprolol Tartrate (Metoprolol Tartrate 100 Mg Tablet) 100 mg PO BID [facility]; Protocol Last Admin: 10/30/21 08:42 Dose: 100 mg Mirtazapine (Mirtazapine 15 Mg Tablet) 15 mg PO BEDTIME [facility] Last Admin: 10/29/21 20:36 Dose: 15 mg Olanzapine (Olanzapine 2.5 Mg Tablet) 2.5 mg PO Q4H PRN PRN Reason: Psychosis Last Admin: 10/23/21 22:27 Dose: 2.5 mg Olanzapine (Olanzapine 2.5 Mg Tablet) 2.5 mg PO BID [facility] Last Admin: 10/30/21 08:42 Dose: 2.5 mg Trazodone HCl (Trazodone Hcl 50 Mg Tablet) 50 mg PO BEDTIME PRN PRN Reason: Insomnia Last Admin: 10/23/21 22:27 Dose: 50 mg Allergies Allergies Allergy/AdvReac Type Severity Reaction Status Date / Time morphine AdvReac Severe Alternate Verified 09/27/21 10:25 mental status Assessment & Plan Assessment & Plan (1) Major depressive disorder, recurrent severe without psychotic features: Status: Acute Code(s): F33.2 - Major depressive disorder, recurrent severe without psychotic features Assessment and Plan: Continue Cymbalta dose lowered with renal insufficiency check labs in a.m. discussion healthcare proxy Check labs in a.m. consider ECT try and differentiate cognitive issues versus depression difficult to tease out 10/26/2021 Cardiology consult reviewed also discussed case with hospitalist service informed consent obtained try to review treatment ECT with patient. EKG shows AFib in the 80s Give metoprolol in morning prior to treatment 10/28/2021: No med changes, continue with ECT, last 10/27, tolerated procedure 10/29/2021: No med changes, has 1:1 10/30/2021: no med changes, visible in milieu, off 1:1, steadier on her feet with walker (2) HTN (hypertension): Status: Acute Code(s): I10 - Essential (primary) hypertension (3) Atrial fibrillation with rapid ventricular response: Status: Acute Code(s): I48.91 - Unspecified atrial fibrillation Assessment and Plan: Continue metoprolol monitor rate Plan Patient severely depressed and withdrawn some intake noted but significantly decreased. Some periods of elevated mood states and talking about prostitutes somewhat pressured has been intermittently observed per but generally severely depressed withdrawn poor concentration attention hopeless helpless generally not very forthcoming guarded depressed sad sh of her and daughter I spent minutes with the patient and/or on the patient floor today, greater than?50% of which was spent counseling/coordinating care. Patient educated on: other Reason for contiued inpatient stay Substantial Risk for: inability to function, rapid decompensation and med/psych decompensation
[2021-10-30 18:00] VITALS: BP 122/65; PULSE 76; RESP 18; TEMP 35.9; O2SAT 976
[2021-10-30] MEDS: Atorvastatin Calcium 40 MG TABLET PO (19:48)
[2021-10-30] MEDS: Mirtazapine 15 MG TABLET PO (19:49)
[2021-10-31] MEDS: traZODone HCL 50 MG TABLET PO ×2 (00:22→20:21)
[2021-10-31] MEDS: hydrOXYzine HCL 25 MG TABLET PO (00:22)
[2021-10-31] MEDS: OLANZapine 2.5 MG TABLET PO ×3 (04:27→20:03)
[2021-10-31 07:45] VITALS: BP 125/65; PULSE 74; RESP 14; TEMP 36.1; O2SAT 94
[2021-10-31] MEDS: Apixaban 2.5 MG TABLET PO ×2 (10:36→20:02)
[2021-10-31] MEDS: Calcium + Vitamin D 250 MG TABLET 500 MG PO (10:36)
[2021-10-31] MEDS: Metoprolol Tartrate 100 MG TABLET PO ×2 (10:36→20:03)
[2021-10-31] MEDS: amLODIPine Besylate 10 MG TABLET PO (10:37)
[2021-10-31] MEDS: Digoxin 0.125 MG TABLET PO (10:49)
[2021-10-31] MEDS: DULoxetine HCl 30 MG CAPSULE.DR PO ×2 (11:03→20:03)
[2021-10-31 13:00] VITALS: BP 125/66; PULSE 78; RESP 15; TEMP 36.4; O2SAT 97
--- NOTE | 2021-10-31 13:58 | HO.PSYCHPN ---
Subjective Subjective Date of Service: 10/31/21 Reason For Visit: Depression Subjective Notes: Conditional Voluntary Interim History: The nursing staff reported that the patient needed Zyprexa 2.5 mg at night for agitation p.r.n.. She slept for 5 hours. The staff reported that the patient has her 1st ECT last Saturday and she was confused after the procedure and needed to be on one-to-one. On interview the patient remains depressed and she will have ECT tomorrow. Mental Status Exam Mental Status Exam Patient Appearance: Well Grooomed Patient Orientation: Person and Situation Level of Consciousness: Awake Patient Behavior: Cooperative Mood Description: Constricted Affect Description: Calm Patient Cognition Impaired: Yes Ability to Follow Directions: Good Speech Pattern: Appropriate Hallucinations: None Delusions: Not Present Thought Process: Distracted Thought Content: positive for [place] and positive for Poverty of Content Judgement: Fair Diagnostics Vital Signs (24Hr): Vital Signs - 24 hr 10/30/21 18:00 Temperature 96.7 F L Pulse Rate 76 Respiratory Rate 18 Blood Pressure 122/65 Pulse Oximetry 976 H Oxygen Delivery Method Room Air BMI result Body Mass Index 18.1 Labs Results: 10/25/21 09:45 Medications Medications Current Medications Acetaminophen (Acetaminophen 325 Mg Tablet) 650 mg PO Q6H PRN PRN Reason: Pain, Mild (Pain Scale 1-3) Last Admin: 10/27/21 15:43 Dose: 650 mg Al Hydroxide/Mg Hydroxide (Magnesium Hydrox/Alum Hydrox 30 Ml Oral.Susp) 30 ml PO Q6H PRN PRN Reason: Heartburn/Nausea Amlodipine Besylate (Amlodipine Besylate 10 Mg Tablet) 10 mg PO DAILY [facility]; Protocol Last Admin: 10/31/21 10:37 Dose: 10 mg Apixaban (Apixaban 2.5 Mg Tablet) 2.5 mg PO BID [facility] Last Admin: 10/31/21 10:36 Dose: 2.5 mg Atorvastatin Calcium (Atorvastatin Calcium 40 Mg Tablet) 40 mg PO BEDTIME [facility] Last Admin: 10/30/21 19:48 Dose: 40 mg Calcium Carbonate/Cholecalciferol (Calcium + Vitamin D 250 Mg Tablet) 500 mg PO DAILY [facility] Last Admin: 10/31/21 10:36 Dose: 500 mg Digoxin (Digoxin 0.125 Mg Tablet) 0.125 mg PO TuWeFr@0900 [facility] Duloxetine HCl (Duloxetine Hcl 30 Mg Capsule.Dr) 30 mg PO BID [facility] Last Admin: 10/31/21 11:03 Dose: 30 mg Fluoxetine HCl (Fluoxetine Hcl Oral Solution 20 Mg/5 Ml Solution) 10 mg PO DAILY PRN PRN Reason: if pt refuses duloxetine Hydroxyzine HCl (Hydroxyzine Hcl 25 Mg Tablet) 25 mg PO Q6H PRN PRN Reason: Anxiety Last Admin: 10/31/21 00:22 Dose: 25 mg Magnesium Hydroxide (Milk Of Magnesia 30 Ml Oral.Susp) 30 ml PO DAILY PRN PRN Reason: Constipation Metoprolol Tartrate (Metoprolol Tartrate 100 Mg Tablet) 100 mg PO BID [facility]; Protocol Last Admin: 10/31/21 10:36 Dose: 100 mg Mirtazapine (Mirtazapine 15 Mg Tablet) 15 mg PO BEDTIME [facility] Last Admin: 10/30/21 19:49 Dose: 15 mg Olanzapine (Olanzapine 2.5 Mg Tablet) 2.5 mg PO Q4H PRN PRN Reason: Psychosis Last Admin: 10/31/21 04:27 Dose: 2.5 mg Olanzapine (Olanzapine 2.5 Mg Tablet) 2.5 mg PO BID [facility] Last Admin: 10/31/21 10:36 Dose: 2.5 mg Trazodone HCl (Trazodone Hcl 50 Mg Tablet) 50 mg PO BEDTIME PRN PRN Reason: Insomnia Last Admin: 10/31/21 00:22 Dose: 50 mg Allergies Allergies Allergy/AdvReac Type Severity Reaction Status Date / Time morphine AdvReac Severe Alternate Verified 09/27/21 10:25 mental status Assessment & Plan Assessment & Plan (1) Major depressive disorder, recurrent severe without psychotic features: Status: Acute Code(s): F33.2 - Major depressive disorder, recurrent severe without psychotic features Assessment and Plan: Continue Cymbalta dose lowered with renal insufficiency check labs in a.m. discussion healthcare proxy Check labs in a.m. consider ECT try and differentiate cognitive issues versus depression difficult to tease out 10/26/2021 Cardiology consult reviewed also discussed case with hospitalist service informed consent obtained try to review treatment ECT with patient. EKG shows AFib in the 80s Give metoprolol in morning prior to treatment 10/28/2021: No med changes, continue with ECT, last 10/27, tolerated procedure 10/29/2021: No med changes, has 1:1 10/30/2021: no med changes, visible in milieu, off 1:1, steadier on her feet with walker (2) HTN (hypertension): Status: Acute Code(s): I10 - Essential (primary) hypertension (3) Atrial fibrillation with rapid ventricular response: Status: Acute Code(s): I48.91 - Unspecified atrial fibrillation Assessment and Plan: Continue metoprolol monitor rate Plan Patient severely depressed and withdrawn some intake noted but significantly decreased. Some periods of elevated mood states and talking about prostitutes somewhat pressured has been intermittently observed per but generally severely depressed withdrawn poor concentration attention hopeless helpless generally not very forthcoming guarded depressed sad sh of her and daughter I spent __20____ minutes with the patient and/or on the patient floor today, greater than?50% of which was spent counseling/coordinating care. Reason for contiued inpatient stay Substantial Risk for: inability to function, rapid decompensation and med/psych decompensation
[2021-10-31 18:00] VITALS: BP 113/64; PULSE 82; RESP 18; TEMP 36.2; O2SAT 96
[2021-10-31] MEDS: Atorvastatin Calcium 40 MG TABLET PO (20:03)
[2021-10-31] MEDS: Mirtazapine 15 MG TABLET PO (20:03)
[2021-10-31] MEDS: Acetaminophen 325 MG TABLET 650 MG PO (20:20)
[2021-11-01] VITALS (12 sets, daily range): BP systolic 98–164; BP diastolic 57–91; PULSE 72–100; RESP 16–30; TEMP 36.2–36.7; O2SAT 93–99
[2021-11-01] MEDS: amLODIPine Besylate 10 MG TABLET PO (05:48)
[2021-11-01] MEDS: Metoprolol Tartrate 100 MG TABLET PO ×2 (05:48→20:17)
--- NOTE | 2021-11-01 07:28 | MHC.SHP ---
Pre-Procedural Eval Section A Date of Service: 11/01/21 The patient is an INPATIENT: Yes Changes since office visit: No Cold of Flu in the past 2 weeks, No New Medical Problems, No Changes in Medication and No Patient answered all questions The History & Physical has been completed within 30 days and I have reviewed it.: Yes Section B Chief Complaint: Depression Allergies: Allergies Allergy/AdvReac Type Severity Reaction Status Date / Time morphine AdvReac Severe Alternate Verified 09/27/21 10:25 mental status Plan I have reviewed the history and physical and performed a pertinent physical examination on my patient. No changes have occurred unless specified.
--- NOTE | 2021-11-01 07:28 | HO.ECTPROC ---
ECT Procedure Note Diagnosis/Treatment Date of Service: 11/01/21 Diagnosis: Major Depressive Disorder Previous ECT Date: 10/27/21 Current Treatment Number: 2 Treatment: Series Interval Clinical Notes: The patient reported no side effects with previous ECT. staff reported that she was delirious after her first ECT but resolved after a few hours ECT Settings Device: THYMATRON DGx Electrode Placement: Right Unilateral Program/Pulse Width: 0.25 Energy Percent: 100 Seizure Duration By EEG (in seconds): 49 By Motor Observation (in seconds): 33 Medications Administration General Anesthetic: Etomidate (10) Muscle Relaxant: Succinylcholine (60) Ancillary Medications Anti-emetics: Zofran - Pre ECT Miscillaneous Medications: Propofol Airway Management Airway Management: Bag Mask Ventilation Treatment Recommendations No Changes Recommended: No change Pt Tolerated Procedure w/o Issue: Yes
--- NOTE | 2021-11-01 08:49 | P.CONAN_ITS ---
[facility] Active Problems Active Problems: All Active Problems (Updated 10/27/21 @ 00:03 by Treva Gonzalez) Major depressive disorder, recurrent severe without psychotic features (Acute) Atrial fibrillation with rapid ventricular response (Acute) Major depressive disorder (Acute) Delusion (Acute) Dementia (Acute) Compression fracture of T9 vertebra (Acute) E coli bacteremia (Acute) Ocular melanoma (Acute) Delusions (Acute) Bacteriuria (Acute) Depression (Acute) NATE (acute kidney injury) (Acute) Diarrhea (Acute) Uncontrolled hypertension (Acute) Acute diastolic heart failure (Acute) Pleural effusion (Acute) Pleural effusion (Acute) Hemopneumothorax (Acute) Fall (Acute) Fracture, rib (Acute ~02/2020) Atrial fibrillation with rapid ventricular response (Acute) HTN (hypertension) (Acute) Past Medical History Medical History Anxiety Atrial fibrillation with controlled ventricular rate Dementia Depression Diastolic heart failure GERD (gastroesophageal reflux disease) History of rib fracture HTN (hypertension) Major depressive disorder, 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 Father No problems noted. Family history of problems with anesthesia: No Surgical History Surgical History No pertinent past surgical history History of Problems with Anesthesia: No Social History Social History Household Members: Family Household Members Other:: Son, Akil Joe Housing: House Housing Other:: [facility] Do you presently have visiting nurse or other home services: Yes ([facility] services) Unable to assess alcohol history related to: Unable to respond Alcohol intake: never Patient Tobacco Use Status: Never used Tobacco Second Hand Smoke Exposure: No Use of substances other than those prescribed or required for medical reasons: No Currently Displaying Signs/Symptoms of Drug Intoxication Withdrawal: No Have you been hit, kicked, punched, or otherwise hurt by someone within the past year? If so, by whom?: No Do you feel safe in your current relationship?: No Current Relationship Is there a partner from a previous relationship who is making you feel unsafe now?: No Advance Directives: Yes Advance Directives Information Provided: Yes (MOLST) Advance Directives on File: Yes Advance Directives Date on File: 04/19/21 Do you have thoughts of harming others: None Do you have a plan to hurt others: No Plan Recently lost weight without trying: Yes How much weight loss: 24-33 pounds Eating poorly because of decreased appetite: Yes Nutrition screen score: 6 Nutrition Risks: Poor intake 0-25% >4 days Patient : No : No Poor oral hygiene: No service: No Current occupational status: retired Sexual orientation: Straight/Heterosexual Meds Allergies Allergy/AdvReac Type Severity Reaction Status Date / Time morphine AdvReac Severe Alternate Verified 09/27/21 10:25 mental status Active Medications: Current Medications Acetaminophen (Acetaminophen 325 Mg Tablet) 650 mg PO Q6H PRN PRN Reason: Pain, Mild (Pain Scale 1-3) Last Admin: 10/31/21 20:20 Dose: 650 mg Al Hydroxide/Mg Hydroxide (Magnesium Hydrox/Alum Hydrox 30 Ml Oral.Susp) 30 ml PO Q6H PRN PRN Reason: Heartburn/Nausea Amlodipine Besylate (Amlodipine Besylate 10 Mg Tablet) 10 mg PO DAILY [facility]; Protocol Last Admin: 11/01/21 05:48 Dose: 10 mg Apixaban (Apixaban 2.5 Mg Tablet) 2.5 mg PO BID [facility] Last Admin: 10/31/21 20:02 Dose: 2.5 mg Atorvastatin Calcium (Atorvastatin Calcium 40 Mg Tablet) 40 mg PO BEDTIME [facility] Last Admin: 10/31/21 20:03 Dose: 40 mg Calcium Carbonate/Cholecalciferol (Calcium + Vitamin D 250 Mg Tablet) 500 mg PO DAILY [facility] Last Admin: 10/31/21 10:36 Dose: 500 mg Digoxin (Digoxin 0.125 Mg Tablet) 0.125 mg PO [id number] [facility] Duloxetine HCl (Duloxetine Hcl 30 Mg Capsule.Dr) 30 mg PO BID [facility] Last Admin: 10/31/21 20:03 Dose: 30 mg Fluoxetine HCl (Fluoxetine Hcl Oral Solution 20 Mg/5 Ml Solution) 10 mg PO DAILY PRN PRN Reason: if pt refuses duloxetine Hydroxyzine HCl (Hydroxyzine Hcl 25 Mg Tablet) 25 mg PO Q6H PRN PRN Reason: Anxiety Last Admin: 10/31/21 00:22 Dose: 25 mg Magnesium Hydroxide (Milk Of Magnesia 30 Ml Oral.Susp) 30 ml PO DAILY PRN PRN Reason: Constipation Metoprolol Tartrate (Metoprolol Tartrate 100 Mg Tablet) 100 mg PO BID [facility]; Protocol Last Admin: 11/01/21 05:48 Dose: 100 mg Mirtazapine (Mirtazapine 15 Mg Tablet) 15 mg PO BEDTIME [facility] Last Admin: 10/31/21 20:03 Dose: 15 mg Olanzapine (Olanzapine 2.5 Mg Tablet) 2.5 mg PO Q4H PRN PRN Reason: Psychosis Last Admin: 10/31/21 04:27 Dose: 2.5 mg Olanzapine (Olanzapine 2.5 Mg Tablet) 2.5 mg PO BID [facility] Last Admin: 10/31/21 20:03 Dose: 2.5 mg Trazodone HCl (Trazodone Hcl 50 Mg Tablet) 50 mg PO BEDTIME PRN PRN Reason: Insomnia Last Admin: 10/31/21 20:21 Dose: 50 mg Home Medications Medication Instructions Recorded Confirmed Last Taken Type amlodipine 10 mg tablet 10 mg PO DAILY 03/16/20 10/22/21 10/22/21 History 10 mg calcium carbonate 600 mg-vitamin 1 tab PO DAILY 09/07/20 10/22/21 10/22/21 History D3 20 mcg (800 unit) tablet 1 tab (Caltrate with Vitamin D3) mirtazapine 15 mg tablet 15 mg PO BEDTIME 06/06/21 10/22/21 10/21/21 History 15 mg Exam Exam Date and Time: November 01, 2021 0849 Height,Weight and Vital Signs: Height 5 ft Weight 42.1 kg Last Vital Signs Temp 97.1 F 11/01/21 08:24 Pulse 79 11/01/21 08:24 Resp 18 11/01/21 08:24 BP 106/84 11/01/21 08:24 Pulse Ox 95 11/01/21 08:24 O2 Del Method 11/01/21 08:24 O2 Flow Rate 2 11/01/21 08:09 Pertinent Lab Results Pertinent Lab Results: Laboratory Tests 10/22/21 10/23/21 10/25/21 15:10 07:50 09:45 Sodium 142 140 Potassium 4.1 4.2 Chloride 107 104 Carbon Dioxide 27 27 Anion Gap 12 13 BUN 19 H 17 H Creatinine 0.83 0.77 Estim Creat Clear Calc 35.3 37.4 Estimated GFR > 60 > 60 Fasting Glucose 97 101 H Calcium 9.0 9.2 Total Bilirubin 0.5 0.5 AST 23 23 ALT 44 H 44 H Alkaline Phosphatase 55 62 Total Protein 5.5 L 5.9 L Albumin 3.3 L 3.4 L Triglycerides 51 Cholesterol 123 LDL Cholesterol, Calc 54 HDL Cholesterol 59 COVID-19 (KYLEE) Negative COVID-19 Clin Com See Note Airway Heart: irreg. Lungs: CTA Assessment and Plan Final Anesthetic Review Family History of Problems with Anesthesia: No History of Problems with Anesthesia: No ASA Class: III Final Preanesthetic Review: No Changes in Pt Med Stat, Meds/Allgs Chart Reviewed, Consent Obtained/Reviewed and Anes Risks/Benef Reviewed Patient Risk: Low (U) Procedure Risk: Low Anesthetic Plan Anesthetic Plan: GA Disposition: Standard PACU
--- NOTE | 2021-11-01 09:03 | HO.POSTANES ---
Post Anesthesia Evaluation Post Anesthesia Evaluation Vital Signs: Vital Signs Temp Pulse Resp BP Pulse Ox O2 Del Method O2 Flow Rate 11/01/21 08:35 97.1 F 93 16 112/69 96 Room Air 11/01/21 08:35 97.1 F 93 16 112/69 96 11/01/21 08:24 97.1 F 79 18 106/84 95 Room Air 11/01/21 08:09 89 20 106/84 95 Nasal Cannula 2 11/01/21 08:04 100 30 H 140/79 H 99 Nasal Cannula 2 11/01/21 07:59 86 16 164/81 H 93 Nasal Cannula 2 11/01/21 07:54 97.8 F 77 16 155/91 H 95 Nasal Cannula 2 11/01/21 06:35 97.3 F 72 18 117/69 97 Room Air 11/01/21 06:00 97.2 F 78 17 129/61 96 11/01/21 05:44 97.2 F 78 17 129/61 96 Room Air Anesthesia: General Mental Status: Awake Pain Control: Satisfactory Nausea/Vomiting: None Hydration: Adequate Anesthesia-Related Issues: No Anes. Related Issues Comments: a
[2021-11-01] MEDS: Digoxin 0.125 MG TABLET PO (09:49)
[2021-11-01] MEDS: DULoxetine HCl 30 MG CAPSULE.DR PO ×2 (09:50→20:18)
[2021-11-01] MEDS: Apixaban 2.5 MG TABLET PO ×2 (09:50→20:18)
[2021-11-01] MEDS: OLANZapine 2.5 MG TABLET PO ×2 (09:50→20:19)
[2021-11-01] MEDS: Calcium + Vitamin D 250 MG TABLET 500 MG PO (09:50)
--- NOTE | 2021-11-01 15:34 | P.PNPSI_ITS ---
Subjective Subjective Date of Service: 11/01/21 Reason For Visit: Depression Subjective Notes: Conditional Voluntary Interim History: The nursing staff reported the patient slept very well last night. She still complains of depression and anxiety but denies suicidal ideation. Today she had ECT and there were no complications. She was more redirectable and even she played soccer yesterday. She looks more in tune with her surroundings Mental Status Exam Mental Status Exam Patient Appearance: Well Grooomed Patient Orientation: Person and Situation Level of Consciousness: Awake Patient Behavior: Cooperative Mood Description: Withdrawn Affect Description: Constricted Patient Cognition Impaired: Yes Ability to Follow Directions: Good Speech Pattern: Clear Hallucinations: None Delusions: Not Present Thought Process: Distracted Thought Content: positive for [place], positive for Goal Oriented and positive for Poverty of Content Judgement: Fair Diagnostics Vital Signs (24Hr): Vital Signs - 24 hr 10/31/21 18:00 11/01/21 05:44 11/01/21 06:00 Temperature 97.2 F 97.2 F 97.2 F Pulse Rate 82 78 78 Respiratory Rate 18 17 17 Blood Pressure 113/64 129/61 129/61 Pulse Oximetry 96 96 96 Oxygen Delivery Method Room Air Room Air Oxygen Flow Rate 11/01/21 06:35 11/01/21 07:54 11/01/21 07:59 Temperature 97.3 F 97.8 F Pulse Rate 72 77 86 Respiratory Rate 18 16 16 Blood Pressure 117/69 155/91 H 164/81 H Pulse Oximetry 97 95 93 Oxygen Delivery Method Room Air Nasal Cannula Nasal Cannula Oxygen Flow Rate 2 2 11/01/21 08:04 11/01/21 08:09 11/01/21 08:24 Temperature 97.1 F Pulse Rate 100 89 79 Respiratory Rate 30 H 20 18 Blood Pressure 140/79 H 106/84 106/84 Pulse Oximetry 99 95 95 Oxygen Delivery Method Nasal Cannula Nasal Cannula Room Air Oxygen Flow Rate 2 2 11/01/21 08:35 11/01/21 08:35 Temperature 97.1 F 97.1 F Pulse Rate 93 93 Respiratory Rate 16 16 Blood Pressure 112/69 112/69 Pulse Oximetry 96 96 Oxygen Delivery Method Room Air Oxygen Flow Rate BMI result Body Mass Index 18.1 Labs Results: 10/25/21 09:45 Medications Medications Current Medications Acetaminophen (Acetaminophen 325 Mg Tablet) 650 mg PO Q6H PRN PRN Reason: Pain, Mild (Pain Scale 1-3) Last Admin: 10/31/21 20:20 Dose: 650 mg Al Hydroxide/Mg Hydroxide (Magnesium Hydrox/Alum Hydrox 30 Ml Oral.Susp) 30 ml PO Q6H PRN PRN Reason: Heartburn/Nausea Amlodipine Besylate (Amlodipine Besylate 10 Mg Tablet) 10 mg PO DAILY [facility]; Protocol Last Admin: 11/01/21 05:48 Dose: 10 mg Apixaban (Apixaban 2.5 Mg Tablet) 2.5 mg PO BID [facility] Last Admin: 11/01/21 09:50 Dose: 2.5 mg Atorvastatin Calcium (Atorvastatin Calcium 40 Mg Tablet) 40 mg PO BEDTIME [facility] Last Admin: 10/31/21 20:03 Dose: 40 mg Calcium Carbonate/Cholecalciferol (Calcium + Vitamin D 250 Mg Tablet) 500 mg PO DAILY [facility] Last Admin: 11/01/21 09:50 Dose: 500 mg Digoxin (Digoxin 0.125 Mg Tablet) 0.125 mg PO [id number] [facility] Last Admin: 11/01/21 09:49 Dose: 0.125 mg Duloxetine HCl (Duloxetine Hcl 30 Mg Capsule.Dr) 30 mg PO BID [facility] Last Admin: 11/01/21 09:50 Dose: 30 mg Fluoxetine HCl (Fluoxetine Hcl Oral Solution 20 Mg/5 Ml Solution) 10 mg PO DAILY PRN PRN Reason: if pt refuses duloxetine Hydroxyzine HCl (Hydroxyzine Hcl 25 Mg Tablet) 25 mg PO Q6H PRN PRN Reason: Anxiety Last Admin: 10/31/21 00:22 Dose: 25 mg Magnesium Hydroxide (Milk Of Magnesia 30 Ml Oral.Susp) 30 ml PO DAILY PRN PRN Reason: Constipation Metoprolol Tartrate (Metoprolol Tartrate 100 Mg Tablet) 100 mg PO BID [facility]; Protocol Last Admin: 11/01/21 05:48 Dose: 100 mg Mirtazapine (Mirtazapine 15 Mg Tablet) 15 mg PO BEDTIME [facility] Last Admin: 10/31/21 20:03 Dose: 15 mg Olanzapine (Olanzapine 2.5 Mg Tablet) 2.5 mg PO Q4H PRN PRN Reason: Psychosis Last Admin: 10/31/21 04:27 Dose: 2.5 mg Olanzapine (Olanzapine 2.5 Mg Tablet) 2.5 mg PO BID [facility] Last Admin: 09/07/22 09:50 Dose: 2.5 mg Trazodone HCl (Trazodone Hcl 50 Mg Tablet) 50 mg PO BEDTIME PRN PRN Reason: Insomnia Last Admin: 10/31/21 20:21 Dose: 50 mg Allergies Allergies Allergy/AdvReac Type Severity Reaction Status Date / Time morphine AdvReac Severe Alternate Verified 09/27/21 10:25 mental status Assessment & Plan Assessment & Plan (1) Major depressive disorder, recurrent severe without psychotic features: Status: Acute Code(s): F33.2 - Major depressive disorder, recurrent severe without psychotic features Assessment and Plan: Continue Cymbalta dose lowered with renal insufficiency check labs in a.m. discussion healthcare proxy Check labs in a.m. consider ECT try and differentiate cognitive issues versus depression difficult to tease out 10/26/2021 Cardiology consult reviewed also discussed case with hospitalist service informed consent obtained try to review treatment ECT with patient. EKG shows AFib in the 80s Give metoprolol in morning prior to treatment 10/28/2021: No med changes, continue with ECT, last 10/27, tolerated procedure 10/29/2021: No med changes, has 1:1 10/30/2021: no med changes, visible in milieu, off 1:1, steadier on her feet with walker (2) HTN (hypertension): Status: Acute Code(s): I10 - Essential (primary) hypertension (3) Atrial fibrillation with rapid ventricular response: Status: Acute Code(s): I48.91 - Unspecified atrial fibrillation Assessment and Plan: Continue metoprolol monitor rate Plan Patient severely depressed and withdrawn some intake noted but significantly decreased. Some periods of elevated mood states and talking about prostitutes somewhat pressured has been intermittently observed per but generally severely depressed withdrawn poor concentration attention hopeless helpless generally not very forthcoming guarded depressed sad sh of her and daughter I spent ___20___ minutes with the patient and/or on the patient floor today, greater than?50% of which was spent counseling/coordinating care. Reason for contiued inpatient stay Substantial Risk for: inability to function, rapid decompensation and med/psych decompensation
[2021-11-01] MEDS: Atorvastatin Calcium 40 MG TABLET PO (20:17)
[2021-11-01] MEDS: Mirtazapine 15 MG TABLET PO (20:18)
[2021-11-02 07:00] VITALS: BMI 18.8
[2021-11-02] MEDS: Digoxin 0.125 MG TABLET PO (08:26)
[2021-11-02] MEDS: OLANZapine 2.5 MG TABLET PO ×2 (08:26→20:15)
[2021-11-02] MEDS: Apixaban 2.5 MG TABLET PO ×2 (08:27→20:16)
[2021-11-02] MEDS: DULoxetine HCl 30 MG CAPSULE.DR PO ×2 (08:27→20:15)
[2021-11-02] MEDS: Calcium + Vitamin D 250 MG TABLET 500 MG PO (08:27)
[2021-11-02] MEDS: Metoprolol Tartrate 100 MG TABLET PO ×2 (08:27→20:15)
[2021-11-02] MEDS: amLODIPine Besylate 10 MG TABLET PO (08:38)
[2021-11-02 08:51] VITALS: BP 121/66; PULSE 81; RESP 16; TEMP 36.7; O2SAT 97
[2021-11-02 09:00] VITALS: BP 121/66; PULSE 81; RESP 16; TEMP 36.7; O2SAT 97
[2021-11-02 13:00] VITALS: BP 94/56; PULSE 80; RESP 18; TEMP 36.8; O2SAT 95
--- NOTE | 2021-11-02 13:37 | HO.PSYCHPN ---
Subjective Subjective Date of Service: 11/02/21 Reason For Visit: Depression Subjective Notes: Conditional Voluntary Interim History: The nursing staff reported the patient has been eating independently and she shows some brighter affect. Yesterday, after ECT, her cognition and orientation was very well before noon. On interview the patient looks slightly better with a brighter affect but still pleasantly confused. Mental Status Exam Mental Status Exam Patient Appearance: Well Grooomed Patient Orientation: Person, Place and Situation Level of Consciousness: Awake Patient Behavior: Cooperative Mood Description: Calm Affect Description: Calm Patient Cognition Impaired: Yes Ability to Follow Directions: Good Hallucinations: None Delusions: Not Present Thought Process: Distracted Thought Content: positive for [place] and positive for Poverty of Content Judgement: Fair Diagnostics Vital Signs (24Hr): Vital Signs - 24 hr 11/01/21 15:53 11/01/21 21:52 Temperature 98.0 F 97.4 F Pulse Rate 74 83 Respiratory Rate 16 16 Blood Pressure 98/57 L 119/63 Pulse Oximetry 96 96 Oxygen Delivery Method Room Air Room Air BMI result Body Mass Index 18.1 Labs Results: 10/25/21 09:45 Medications Medications Current Medications Acetaminophen (Acetaminophen 325 Mg Tablet) 650 mg PO Q6H PRN PRN Reason: Pain, Mild (Pain Scale 1-3) Last Admin: 10/31/21 20:20 Dose: 650 mg Al Hydroxide/Mg Hydroxide (Magnesium Hydrox/Alum Hydrox 30 Ml Oral.Susp) 30 ml PO Q6H PRN PRN Reason: Heartburn/Nausea Amlodipine Besylate (Amlodipine Besylate 10 Mg Tablet) 10 mg PO DAILY [facility]; Protocol Last Admin: 11/02/21 08:38 Dose: 10 mg Apixaban (Apixaban 2.5 Mg Tablet) 2.5 mg PO BID [facility] Last Admin: 11/02/21 08:27 Dose: 2.5 mg Atorvastatin Calcium (Atorvastatin Calcium 40 Mg Tablet) 40 mg PO BEDTIME [facility] Last Admin: 11/01/21 20:17 Dose: 40 mg Calcium Carbonate/Cholecalciferol (Calcium + Vitamin D 250 Mg Tablet) 500 mg PO DAILY [facility] Last Admin: 11/02/21 08:27 Dose: 500 mg Digoxin (Digoxin 0.125 Mg Tablet) 0.125 mg PO TuWeThFr@0900 [facility] Last Admin: 11/02/21 08:26 Dose: 0.125 mg Duloxetine HCl (Duloxetine Hcl 30 Mg Capsule.Dr) 30 mg PO BID [facility] Last Admin: 11/02/21 08:27 Dose: 30 mg Fluoxetine HCl (Fluoxetine Hcl Oral Solution 20 Mg/5 Ml Solution) 10 mg PO DAILY PRN PRN Reason: if pt refuses duloxetine Hydroxyzine HCl (Hydroxyzine Hcl 25 Mg Tablet) 25 mg PO Q6H PRN PRN Reason: Anxiety Last Admin: 10/31/21 00:22 Dose: 25 mg Magnesium Hydroxide (Milk Of Magnesia 30 Ml Oral.Susp) 30 ml PO DAILY PRN PRN Reason: Constipation Metoprolol Tartrate (Metoprolol Tartrate 100 Mg Tablet) 100 mg PO BID [facility]; Protocol Last Admin: 11/02/21 08:27 Dose: 100 mg Mirtazapine (Mirtazapine 15 Mg Tablet) 15 mg PO BEDTIME [facility] Last Admin: 11/01/21 20:18 Dose: 15 mg Olanzapine (Olanzapine 2.5 Mg Tablet) 2.5 mg PO Q4H PRN PRN Reason: Psychosis Last Admin: 10/31/21 04:27 Dose: 2.5 mg Olanzapine (Olanzapine 2.5 Mg Tablet) 2.5 mg PO BID [facility] Last Admin: 11/02/21 08:26 Dose: 2.5 mg Trazodone HCl (Trazodone Hcl 50 Mg Tablet) 50 mg PO BEDTIME PRN PRN Reason: Insomnia Last Admin: 10/31/21 20:21 Dose: 50 mg Allergies Allergies Allergy/AdvReac Type Severity Reaction Status Date / Time morphine AdvReac Severe Alternate Verified 09/27/21 10:25 mental status Assessment & Plan Assessment & Plan (1) Major depressive disorder, recurrent severe without psychotic features: Status: Acute Code(s): F33.2 - Major depressive disorder, recurrent severe without psychotic features Assessment and Plan: Continue Cymbalta dose lowered with renal insufficiency check labs in a.m. discussion healthcare proxy Check labs in a.m. consider ECT try and differentiate cognitive issues versus depression difficult to tease out 10/26/2021 Cardiology consult reviewed also discussed case with hospitalist service informed consent obtained try to review treatment ECT with patient. EKG shows AFib in the 80s Give metoprolol in morning prior to treatment 10/28/2021: No med changes, continue with ECT, last 10/27, tolerated procedure 10/29/2021: No med changes, has 1:1 10/30/2021: no med changes, visible in milieu, off 1:1, steadier on her feet with walker (2) HTN (hypertension): Status: Acute Code(s): I10 - Essential (primary) hypertension (3) Atrial fibrillation with rapid ventricular response: Status: Acute Code(s): I48.91 - Unspecified atrial fibrillation Assessment and Plan: Continue metoprolol monitor rate Plan Patient severely depressed and withdrawn some intake noted but significantly decreased. Some periods of elevated mood states and talking about prostitutes somewhat pressured has been intermittently observed per but generally severely depressed withdrawn poor concentration attention hopeless helpless generally not very forthcoming guarded depressed sad sh of her and daughter I spent __20____ minutes with the patient and/or on the patient floor today, greater than?50% of which was spent counseling/coordinating care. Reason for contiued inpatient stay Substantial Risk for: harm to self, inability to function, rapid decompensation and med/psych decompensation
[2021-11-02 18:00] VITALS: BP 130/66; PULSE 76; RESP 16; TEMP 36.4; O2SAT 95
[2021-11-02 18:34] VITALS: BMI 18.8
[2021-11-02] MEDS: Mirtazapine 15 MG TABLET PO (20:15)
[2021-11-02] MEDS: Atorvastatin Calcium 40 MG TABLET PO (20:16)
[2021-11-03] VITALS (8 sets, daily range): BP systolic 105–179; BP diastolic 54–104; PULSE 60–88; RESP 14–25; TEMP 36.2–37.3; O2SAT 94–100
[2021-11-03] MEDS: Metoprolol Tartrate 100 MG TABLET PO ×2 (05:50→20:31)
[2021-11-03] MEDS: amLODIPine Besylate 10 MG TABLET PO (05:51)
--- NOTE | 2021-11-03 08:34 | P.CONAN_ITS ---
[facility] Active Problems Active Problems: All Active Problems (Updated 10/27/21 @ 00:03 by Treva Gonzalez) Major depressive disorder, recurrent severe without psychotic features (Acute) Atrial fibrillation with rapid ventricular response (Acute) Major depressive disorder (Acute) Delusion (Acute) Dementia (Acute) Compression fracture of T9 vertebra (Acute) E coli bacteremia (Acute) Ocular melanoma (Acute) Delusions (Acute) Bacteriuria (Acute) Depression (Acute) NATE (acute kidney injury) (Acute) Diarrhea (Acute) Uncontrolled hypertension (Acute) Acute diastolic heart failure (Acute) Pleural effusion (Acute) Pleural effusion (Acute) Hemopneumothorax (Acute) Fall (Acute) Fracture, rib (Acute ~02/2020) Atrial fibrillation with rapid ventricular response (Acute) HTN (hypertension) (Acute) Past Medical History Medical History Anxiety Atrial fibrillation with controlled ventricular rate Dementia Depression Diastolic heart failure GERD (gastroesophageal reflux disease) History of rib fracture HTN (hypertension) Major depressive disorder, 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 Father No problems noted. Family history of problems with anesthesia: No Surgical History Surgical History No pertinent past surgical history History of Problems with Anesthesia: No Social History Social History Household Members: Family Household Members Other:: Son, Akil Joe Housing: House Housing Other:: [facility] Do you presently have visiting nurse or other home services: Yes ([facility] services) Unable to assess alcohol history related to: Unable to respond Alcohol intake: never Patient Tobacco Use Status: Never used Tobacco Second Hand Smoke Exposure: No Use of substances other than those prescribed or required for medical reasons: No Currently Displaying Signs/Symptoms of Drug Intoxication Withdrawal: No Have you been hit, kicked, punched, or otherwise hurt by someone within the past year? If so, by whom?: No Do you feel safe in your current relationship?: No Current Relationship Is there a partner from a previous relationship who is making you feel unsafe now?: No Are you DNR?: Yes Advance Directives: Yes Advance Directives Information Provided: Yes (MOLST) Advance Directives on File: Yes Advance Directives Date on File: 04/19/21 Do you have thoughts of harming others: None Do you have a plan to hurt others: No Plan Recently lost weight without trying: Yes How much weight loss: 24-33 pounds Eating poorly because of decreased appetite: Yes Nutrition screen score: 6 Nutrition Risks: Poor intake 0-25% >4 days Patient : No : No Poor oral hygiene: No service: No Current occupational status: retired Sexual orientation: Straight/Heterosexual Meds Allergies Allergy/AdvReac Type Severity Reaction Status Date / Time morphine AdvReac Severe Alternate Verified 09/27/21 10:25 mental status Active Medications: Current Medications Acetaminophen (Acetaminophen 325 Mg Tablet) 650 mg PO Q6H PRN PRN Reason: Pain, Mild (Pain Scale 1-3) Last Admin: 10/31/21 20:20 Dose: 650 mg Al Hydroxide/Mg Hydroxide (Magnesium Hydrox/Alum Hydrox 30 Ml Oral.Susp) 30 ml PO Q6H PRN PRN Reason: Heartburn/Nausea Amlodipine Besylate (Amlodipine Besylate 10 Mg Tablet) 10 mg PO DAILY [facility]; Protocol Last Admin: 11/03/21 05:51 Dose: 10 mg Apixaban (Apixaban 2.5 Mg Tablet) 2.5 mg PO BID [facility] Last Admin: 11/02/21 20:16 Dose: 2.5 mg Atorvastatin Calcium (Atorvastatin Calcium 40 Mg Tablet) 40 mg PO BEDTIME [facility] Last Admin: 11/02/21 20:16 Dose: 40 mg Calcium Carbonate/Cholecalciferol (Calcium + Vitamin D 250 Mg Tablet) 500 mg PO DAILY [facility] Last Admin: 11/02/21 08:27 Dose: 500 mg Digoxin (Digoxin 0.125 Mg Tablet) 0.125 mg PO TuWeThFr@0900 [facility] Last Admin: 11/02/21 08:26 Dose: 0.125 mg Duloxetine HCl (Duloxetine Hcl 30 Mg Capsule.Dr) 30 mg PO BID [facility] Last Admin: 11/02/21 20:15 Dose: 30 mg Fluoxetine HCl (Fluoxetine Hcl Oral Solution 20 Mg/5 Ml Solution) 10 mg PO DAILY PRN PRN Reason: if pt refuses duloxetine Hydroxyzine HCl (Hydroxyzine Hcl 25 Mg Tablet) 25 mg PO Q6H PRN PRN Reason: Anxiety Last Admin: 10/31/21 00:22 Dose: 25 mg Lactated Ringer's (Lr) 1,000 mls @ 50 mls/hr IVCONT .Q20H [facility] Magnesium Hydroxide (Milk Of Magnesia 30 Ml Oral.Susp) 30 ml PO DAILY PRN PRN Reason: Constipation Metoprolol Tartrate (Metoprolol Tartrate 100 Mg Tablet) 100 mg PO BID [facility]; Protocol Last Admin: 11/03/21 05:50 Dose: 100 mg Mirtazapine (Mirtazapine 15 Mg Tablet) 15 mg PO BEDTIME [facility] Last Admin: 11/02/21 20:15 Dose: 15 mg Olanzapine (Olanzapine 2.5 Mg Tablet) 2.5 mg PO Q4H PRN PRN Reason: Psychosis Last Admin: 10/31/21 04:27 Dose: 2.5 mg Olanzapine (Olanzapine 2.5 Mg Tablet) 2.5 mg PO BID [facility] Last Admin: 11/02/21 20:15 Dose: 2.5 mg Trazodone HCl (Trazodone Hcl 50 Mg Tablet) 50 mg PO BEDTIME PRN PRN Reason: Insomnia Last Admin: 10/31/21 20:21 Dose: 50 mg Home Medications Medication Instructions Recorded Confirmed Last Taken Type amlodipine 10 mg tablet 10 mg PO DAILY 03/16/20 10/22/21 10/22/21 History 10 mg calcium carbonate 600 mg-vitamin 1 tab PO DAILY 09/07/20 10/22/21 10/22/21 History D3 20 mcg (800 unit) tablet 1 tab (Caltrate with Vitamin D3) mirtazapine 15 mg tablet 15 mg PO BEDTIME 06/06/21 10/22/21 10/21/21 History 15 mg Exam Exam Date and Time: November 03, 2021 0834 Height,Weight and Vital Signs: Height 5 ft Weight 43.9 kg Last Vital Signs Temp 97.9 F 11/03/21 08:03 Pulse 61 11/03/21 08:03 Resp 14 11/03/21 08:03 BP 132/68 11/03/21 08:03 Pulse Ox 95 11/03/21 08:03 O2 Del Method 11/03/21 08:03 O2 Flow Rate 2 11/01/21 08:09 Pertinent Lab Results Pertinent Lab Results: Laboratory Tests 10/22/21 10/23/21 10/25/21 15:10 07:50 09:45 Sodium 142 140 Potassium 4.1 4.2 Chloride 107 104 Carbon Dioxide 27 27 Anion Gap 12 13 BUN 19 H 17 H Creatinine 0.83 0.77 Estim Creat Clear Calc 35.3 37.4 Estimated GFR > 60 > 60 Fasting Glucose 97 101 H Calcium 9.0 9.2 Total Bilirubin 0.5 0.5 AST 23 23 ALT 44 H 44 H Alkaline Phosphatase 55 62 Total Protein 5.5 L 5.9 L Albumin 3.3 L 3.4 L Triglycerides 51 Cholesterol 123 LDL Cholesterol, Calc 54 HDL Cholesterol 59 COVID-19 ([facility]) Negative COVID-19 Clin Com See Note Airway Mallampati Class: II TM Dist: >3cm Neck ROM: Full Heart: rrr Lungs: cta Assessment and Plan Assessment Anesthesia Assessment: Anesthesia Plan Discussed and Chart Reviewed Final Anesthetic Review Family History of Problems with Anesthesia: No History of Problems with Anesthesia: No NPO: Yes ASA Class: III Final Preanesthetic Review: No Changes in Pt Med Stat, Meds/Allgs Chart Reviewed and Consent Obtained/Reviewed Patient Risk: Intermediate Procedure Risk: Intermediate Anesthetic Plan Anesthetic Plan: GA Disposition: Standard PACU
--- NOTE | 2021-11-03 08:57 | MHC.SHP ---
Pre-Procedural Eval Section A Date of Service: 11/03/21 Changes since office visit: Yes Changes in Medication; No Cold of Flu in the past 2 weeks, No New Medical Problems and No Patient answered all questions The History & Physical has been completed within 30 days and I have reviewed it.: Yes Section B Chief Complaint: Depression Allergies: Allergies Allergy/AdvReac Type Severity Reaction Status Date / Time morphine AdvReac Severe Alternate Verified 09/27/21 10:25 mental status Plan I have reviewed the history and physical and performed a pertinent physical examination on my patient. No changes have occurred unless specified.
--- NOTE | 2021-11-03 09:15 | HO.ECTPROC ---
ECT Procedure Note Diagnosis/Treatment Date of Service: 11/03/21 Diagnosis: Major Depressive Disorder Previous ECT Date: 11/01/21 Current Treatment Number: 3 Treatment: Series Interval Clinical Notes: patient with some clear improvement noted less despondent less agitated ECT Settings Device: THYMATRON DGx Electrode Placement: Right Unilateral Program/Pulse Width: 0.25 Energy Percent: 100 Seizure Duration By EEG (in seconds): 33 Medications Administration General Anesthetic: Etomidate (10) Muscle Relaxant: Succinylcholine (60) Ancillary Medications Anti-emetics: Zofran - Pre ECT Airway Management Airway Management: Bag Mask Ventilation Treatment Recommendations No Changes Recommended: No change Pt Tolerated Procedure w/o Issue: Yes
--- NOTE | 2021-11-03 10:51 | HO.PSYCHPN ---
Subjective Subjective Date of Service: 11/03/21 Reason For Visit: Depression Subjective Notes: Conditional Voluntary Interim History: The staff has reported the patient's mood is much better, she showed a brighter affect more energy and feeling better than yesterday as per her report. She has been smiling to. On interview the patient is pleasantly confused but with a brighter range of affect. Today she had ECT with no complications. Mental Status Exam Mental Status Exam Patient Appearance: Well Grooomed Patient Orientation: Person and Situation Level of Consciousness: Awake Patient Behavior: Cooperative Mood Description: Calm Affect Description: Constricted Patient Cognition Impaired: Yes Ability to Follow Directions: Good Speech Pattern: Clear Hallucinations: None Delusions: Not Present Thought Process: Illogical and Distracted Thought Content: positive for [place], positive for Circumstantial and positive for Poverty of Content Judgement: Fair Diagnostics Vital Signs (24Hr): Vital Signs - 24 hr 11/02/21 13:00 11/02/21 18:00 11/03/21 06:03 Temperature 98.3 F 97.6 F 99.1 F Pulse Rate 80 76 60 Respiratory Rate 18 16 17 Blood Pressure 94/56 L 130/66 169/80 H Pulse Oximetry 95 95 95 Oxygen Delivery Method Room Air Room Air Oxygen Flow Rate 11/03/21 08:03 11/03/21 09:17 11/03/21 09:22 Temperature 97.9 F 98.3 F Pulse Rate 61 84 88 Respiratory Rate 14 21 H 25 H Blood Pressure 132/68 179/104 H 165/70 H Pulse Oximetry 95 100 95 Oxygen Delivery Method Room Air Nasal Cannula Nasal Cannula Oxygen Flow Rate 2 2 11/03/21 09:27 11/03/21 09:32 Temperature 98.3 F Pulse Rate 79 81 Respiratory Rate 17 18 Blood Pressure 140/80 H Pulse Oximetry 96 96 Oxygen Delivery Method Nasal Cannula Room Air Oxygen Flow Rate 2 BMI result Body Mass Index 18.8 Labs Results: 10/25/21 09:45 Medications Medications Current Medications Acetaminophen (Acetaminophen 325 Mg Tablet) 650 mg PO Q6H PRN PRN Reason: Pain, Mild (Pain Scale 1-3) Last Admin: 10/31/21 20:20 Dose: 650 mg Al Hydroxide/Mg Hydroxide (Magnesium Hydrox/Alum Hydrox 30 Ml Oral.Susp) 30 ml PO Q6H PRN PRN Reason: Heartburn/Nausea Amlodipine Besylate (Amlodipine Besylate 10 Mg Tablet) 10 mg PO DAILY [facility]; Protocol Last Admin: 11/03/21 05:51 Dose: 10 mg Apixaban (Apixaban 2.5 Mg Tablet) 2.5 mg PO BID [facility] Last Admin: 11/02/21 20:16 Dose: 2.5 mg Atorvastatin Calcium (Atorvastatin Calcium 40 Mg Tablet) 40 mg PO BEDTIME [facility] Last Admin: 11/02/21 20:16 Dose: 40 mg Calcium Carbonate/Cholecalciferol (Calcium + Vitamin D 250 Mg Tablet) 500 mg PO DAILY [facility] Last Admin: 11/02/21 08:27 Dose: 500 mg Digoxin (Digoxin 0.125 Mg Tablet) 0.125 mg PO TuWeThFr@0900 [facility] Last Admin: 11/02/21 08:26 Dose: 0.125 mg Duloxetine HCl (Duloxetine Hcl 30 Mg Capsule.Dr) 30 mg PO BID [facility] Last Admin: 11/02/21 20:15 Dose: 30 mg Fluoxetine HCl (Fluoxetine Hcl Oral Solution 20 Mg/5 Ml Solution) 10 mg PO DAILY PRN PRN Reason: if pt refuses duloxetine Hydroxyzine HCl (Hydroxyzine Hcl 25 Mg Tablet) 25 mg PO Q6H PRN PRN Reason: Anxiety Last Admin: 10/31/21 00:22 Dose: 25 mg Lactated Ringer's (Lr) 1,000 mls @ 50 mls/hr IVCONT .Q20H [facility] Magnesium Hydroxide (Milk Of Magnesia 30 Ml Oral.Susp) 30 ml PO DAILY PRN PRN Reason: Constipation Metoprolol Tartrate (Metoprolol Tartrate 100 Mg Tablet) 100 mg PO BID [facility]; Protocol Last Admin: 11/03/21 05:50 Dose: 100 mg Mirtazapine (Mirtazapine 15 Mg Tablet) 15 mg PO BEDTIME [facility] Last Admin: 11/02/21 20:15 Dose: 15 mg Olanzapine (Olanzapine 2.5 Mg Tablet) 2.5 mg PO Q4H PRN PRN Reason: Psychosis Last Admin: 10/31/21 04:27 Dose: 2.5 mg Olanzapine (Olanzapine 2.5 Mg Tablet) 2.5 mg PO BID [facility] Last Admin: 11/02/21 20:15 Dose: 2.5 mg Trazodone HCl (Trazodone Hcl 50 Mg Tablet) 50 mg PO BEDTIME PRN PRN Reason: Insomnia Last Admin: 10/31/21 20:21 Dose: 50 mg Allergies Allergies Allergy/AdvReac Type Severity Reaction Status Date / Time morphine AdvReac Severe Alternate Verified 09/27/21 10:25 mental status Assessment & Plan Assessment & Plan (1) Major depressive disorder, recurrent severe without psychotic features: Status: Acute Code(s): F33.2 - Major depressive disorder, recurrent severe without psychotic features Assessment and Plan: Continue Cymbalta dose lowered with renal insufficiency check labs in a.m. discussion healthcare proxy Check labs in a.m. consider ECT try and differentiate cognitive issues versus depression difficult to tease out 10/26/2021 Cardiology consult reviewed also discussed case with hospitalist service informed consent obtained try to review treatment ECT with patient. EKG shows AFib in the 80s Give metoprolol in morning prior to treatment. (2) HTN (hypertension): Status: Acute Code(s): I10 - Essential (primary) hypertension (3) Atrial fibrillation with rapid ventricular response: Status: Acute Code(s): I48.91 - Unspecified atrial fibrillation Assessment and Plan: Continue metoprolol monitor rate Plan Patient severely depressed and withdrawn some intake noted but significantly decreased. Some periods of elevated mood states and talking about prostitutes somewhat pressured has been intermittently observed per but generally severely depressed withdrawn poor concentration attention hopeless helpless generally not very forthcoming guarded depressed sad sh of her and daughter Plan: 1. Continue same treatment. 2. Continue ECT. I spent __20____ minutes with the patient and/or on the patient floor today, greater than?50% of which was spent counseling/coordinating care. Reason for contiued inpatient stay Substantial Risk for: inability to function, rapid decompensation and med/psych decompensation
[2021-11-03] MEDS: Calcium + Vitamin D 250 MG TABLET 500 MG PO (12:11)
[2021-11-03] MEDS: DULoxetine HCl 30 MG CAPSULE.DR PO ×2 (12:11→20:31)
[2021-11-03] MEDS: Digoxin 0.125 MG TABLET PO (12:12)
[2021-11-03] MEDS: OLANZapine 2.5 MG TABLET PO ×2 (12:12→20:32)
[2021-11-03] MEDS: Apixaban 2.5 MG TABLET PO ×2 (12:12→20:31)
[2021-11-03] MEDS: Lactated Ringers 1,000 ML 50 ML IVCONT (12:18)
--- NOTE | 2021-11-03 15:49 | MHC.CLN ---
F/U DIET=REGULAR. ENSURE TID PROVIDES ADDITIONAL 1050 KCALS, 60 G PROTEIN. OBSERVED AT LUNCH FEEDING SELF. ATE ALMOST ALL OF SANDWICH AND WAS EATING CAKE. OVERALL, INTAKE APPEARS IMPROVED. CONTINUE REGULAR DIET WITH ENSURE TID. RD TO FOLLOW WEEKLY.
[2021-11-03] MEDS: Atorvastatin Calcium 40 MG TABLET PO (20:31)
[2021-11-03] MEDS: Mirtazapine 15 MG TABLET PO (20:31)
[2021-11-04] MEDS: DULoxetine HCl 30 MG CAPSULE.DR PO ×2 (09:14→20:35)
[2021-11-04] MEDS: Calcium + Vitamin D 250 MG TABLET 500 MG PO (09:14)
[2021-11-04] MEDS: Apixaban 2.5 MG TABLET PO ×2 (09:14→20:35)
[2021-11-04] MEDS: amLODIPine Besylate 10 MG TABLET PO (09:14)
[2021-11-04] MEDS: Metoprolol Tartrate 100 MG TABLET PO ×2 (09:15→20:35)
[2021-11-04] MEDS: OLANZapine 2.5 MG TABLET PO ×2 (09:15→20:35)
--- NOTE | 2021-11-04 16:49 | HO.PSYCHPN ---
Subjective Subjective Date of Service: 11/04/21 Reason For Visit: Depression Subjective Notes: Conditional Voluntary Interim History: Patient anxious depressed ruminating. Improved with ECT. Left lower extremity edema noted no shortness breath or other symptoms noted Medication Compliance: Yes Mental Status Exam Mental Status Exam Patient Appearance: Well Grooomed Patient Orientation: Person and Situation Level of Consciousness: Awake Patient Behavior: Cooperative Mood Description: Calm and Apprehensive Affect Description: Constricted Patient Cognition Impaired: Yes Ability to Follow Directions: Good Speech Pattern: Clear Hallucinations: None Delusions: Not Present Thought Process: Illogical and Distracted Thought Content: positive for [place], positive for Circumstantial and positive for Poverty of Content Judgement: Fair Diagnostics Vital Signs (24Hr): Vital Signs - 24 hr 11/03/21 23:19 Pulse Rate 75 Respiratory Rate 16 Blood Pressure 105/62 Pulse Oximetry 94 Oxygen Delivery Method Room Air BMI result Body Mass Index 18.8 Labs Results: 11/04/21 18:25 Medications Medications Current Medications Acetaminophen (Acetaminophen 325 Mg Tablet) 650 mg PO Q6H PRN PRN Reason: Pain, Mild (Pain Scale 1-3) Last Admin: 10/31/21 20:20 Dose: 650 mg Al Hydroxide/Mg Hydroxide (Magnesium Hydrox/Alum Hydrox 30 Ml Oral.Susp) 30 ml PO Q6H PRN PRN Reason: Heartburn/Nausea Amlodipine Besylate (Amlodipine Besylate 10 Mg Tablet) 10 mg PO DAILY [facility]; Protocol Last Admin: 11/04/21 09:14 Dose: 10 mg Apixaban (Apixaban 2.5 Mg Tablet) 2.5 mg PO BID [facility] Last Admin: 11/04/21 09:14 Dose: 2.5 mg Atorvastatin Calcium (Atorvastatin Calcium 40 Mg Tablet) 40 mg PO BEDTIME [facility] Last Admin: 11/03/21 20:31 Dose: 40 mg Calcium Carbonate/Cholecalciferol (Calcium + Vitamin D 250 Mg Tablet) 500 mg PO DAILY [facility] Last Admin: 11/04/21 09:14 Dose: 500 mg Digoxin (Digoxin 0.125 Mg Tablet) 0.125 mg PO TuWeThFr@0900 [facility] Last Admin: 11/03/21 12:12 Dose: 0.125 mg Duloxetine HCl (Duloxetine Hcl 30 Mg Capsule.Dr) 30 mg PO BID [facility] Last Admin: 11/04/21 09:14 Dose: 30 mg Fluoxetine HCl (Fluoxetine Hcl Oral Solution 20 Mg/5 Ml Solution) 10 mg PO DAILY PRN PRN Reason: if pt refuses duloxetine Hydroxyzine HCl (Hydroxyzine Hcl 25 Mg Tablet) 25 mg PO Q6H PRN PRN Reason: Anxiety Last Admin: 10/31/21 00:22 Dose: 25 mg Lactated Ringer's (Lr) 1,000 mls @ 50 mls/hr IVCONT .Q20H [facility] Last Admin: 11/04/21 10:59 Dose: Not Given Magnesium Hydroxide (Milk Of Magnesia 30 Ml Oral.Susp) 30 ml PO DAILY PRN PRN Reason: Constipation Metoprolol Tartrate (Metoprolol Tartrate 100 Mg Tablet) 100 mg PO BID [facility]; Protocol Last Admin: 11/04/21 09:15 Dose: 100 mg Mirtazapine (Mirtazapine 15 Mg Tablet) 15 mg PO BEDTIME [facility] Last Admin: 11/03/21 20:31 Dose: 15 mg Olanzapine (Olanzapine 2.5 Mg Tablet) 2.5 mg PO Q4H PRN PRN Reason: Psychosis Last Admin: 10/31/21 04:27 Dose: 2.5 mg Olanzapine (Olanzapine 2.5 Mg Tablet) 2.5 mg PO BID [facility] Last Admin: 11/04/21 09:15 Dose: 2.5 mg Trazodone HCl (Trazodone Hcl 50 Mg Tablet) 50 mg PO BEDTIME PRN PRN Reason: Insomnia Last Admin: 10/31/21 20:21 Dose: 50 mg Allergies Allergies Allergy/AdvReac Type Severity Reaction Status Date / Time morphine AdvReac Severe Alternate Verified 09/27/21 10:25 mental status Assessment & Plan Assessment & Plan (1) Major depressive disorder, recurrent severe without psychotic features: Status: Acute Code(s): F33.2 - Major depressive disorder, recurrent severe without psychotic features Assessment and Plan: Continue Cymbalta dose lowered with renal insufficiency check labs in a.m. discussion healthcare proxy Check labs in a.m. consider ECT try and differentiate cognitive issues versus depression difficult to tease out 10/26/2021 Cardiology consult reviewed also discussed case with hospitalist service informed consent obtained try to review treatment ECT with patient. EKG shows AFib in the 80s Give metoprolol in morning prior to treatment. 11/04/2021 Patient seen has been having good response to ECT. Left lower extremity edema noted. Patient on Eliquis. Unclear etiology no calf pain. Hospitalist consult (2) HTN (hypertension): Status: Acute Code(s): I10 - Essential (primary) hypertension (3) Atrial fibrillation with rapid ventricular response: Status: Acute Code(s): I48.91 - Unspecified atrial fibrillation Assessment and Plan: Continue metoprolol monitor rate Plan Patient severely depressed and withdrawn some intake noted but significantly decreased. Some periods of elevated mood states and talking about prostitutes somewhat pressured has been intermittently observed per but generally severely depressed withdrawn poor concentration attention hopeless helpless generally not very forthcoming guarded depressed sad sh of her and daughter Plan: 1. Continue same treatment. 2. Continue ECT. I spent minutes with the patient and/or on the patient floor today, greater than?50% of which was spent counseling/coordinating care. Reason for contiued inpatient stay Substantial Risk for: harm to self and med/psych decompensation
--- NOTE | 2021-11-04 18:16 | HO.PM.IMCN ---
History of Present Illness Data of Consult Service Date: 11/04/21 Primary Care Provider: Unknown Physician HPI Reason for consult: swelling lle 81 year old female with history of mdd, dementia, diastolic heart failure, htn, and persistent atrial fibrillation on eliquis with recent episodes of RVR now managed with metoprolol 100mg bid and digoxin anticoagulated with apixiban being consulted on for new LLE swelling. Nursing staff noted pitting edema lle this morning. Patient denies any calf tenderness, sob, palpitations, or chest pain. Last echo with low normal left systolic function with EF 50-55%, mildly decreased right systolic fx , indeterminate diastolic fx, and mild aortic valve regurg. 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 Father No problems noted. Surgical History No pertinent past surgical history Social History Household Members: Family Household Members Other:: Son, Akil Joe Housing: House Housing Other:: [facility] Do you presently have visiting nurse or other home services: Yes ([facility] services) Unable to assess alcohol history related to: Unable to respond Alcohol intake: never Patient Tobacco Use Status: Never used Tobacco Second Hand Smoke Exposure: No Use of substances other than those prescribed or required for medical reasons: No Currently Displaying Signs/Symptoms of Drug Intoxication Withdrawal: No Have you been hit, kicked, punched, or otherwise hurt by someone within the past year? If so, by whom?: No Do you feel safe in your current relationship?: No Current Relationship Is there a partner from a previous relationship who is making you feel unsafe now?: No Are you DNR?: Yes Advance Directives: Yes Advance Directives Information Provided: Yes (INDU) Advance Directives on File: Yes Advance Directives Date on File: 04/19/21 Do you have thoughts of harming others: None Do you have a plan to hurt others: No Plan Recently lost weight without trying: Yes How much weight loss: 24-33 pounds Eating poorly because of decreased appetite: Yes Nutrition screen score: 6 Nutrition Risks: Poor intake 0-25% >4 days Patient : No : No Poor oral hygiene: No service: No Current occupational status: retired Sexual orientation: Straight/Heterosexual Meds Allergies Allergy/AdvReac Type Severity Reaction Status Date / Time morphine AdvReac Severe Alternate Verified 09/27/21 10:25 mental status Active Medications: Current Medications Acetaminophen (Acetaminophen 325 Mg Tablet) 650 mg PO Q6H PRN PRN Reason: Pain, Mild (Pain Scale 1-3) Last Admin: 10/31/21 20:20 Dose: 650 mg Al Hydroxide/Mg Hydroxide (Magnesium Hydrox/Alum Hydrox 30 Ml Oral.Susp) 30 ml PO Q6H PRN PRN Reason: Heartburn/Nausea Amlodipine Besylate (Amlodipine Besylate 10 Mg Tablet) 10 mg PO DAILY [facility]; Protocol Last Admin: 11/04/21 09:14 Dose: 10 mg Apixaban (Apixaban 2.5 Mg Tablet) 2.5 mg PO BID [facility] Last Admin: 11/04/21 09:14 Dose: 2.5 mg Atorvastatin Calcium (Atorvastatin Calcium 40 Mg Tablet) 40 mg PO BEDTIME [facility] Last Admin: 11/03/21 20:31 Dose: 40 mg Calcium Carbonate/Cholecalciferol (Calcium + Vitamin D 250 Mg Tablet) 500 mg PO DAILY [facility] Last Admin: 11/04/21 09:14 Dose: 500 mg Digoxin (Digoxin 0.125 Mg Tablet) 0.125 mg PO TuWeThFr@0900 [facility] Last Admin: 11/03/21 12:12 Dose: 0.125 mg Duloxetine HCl (Duloxetine Hcl 30 Mg Capsule.Dr) 30 mg PO BID [facility] Last Admin: 11/04/21 09:14 Dose: 30 mg Fluoxetine HCl (Fluoxetine Hcl Oral Solution 20 Mg/5 Ml Solution) 10 mg PO DAILY PRN PRN Reason: if pt refuses duloxetine Hydroxyzine HCl (Hydroxyzine Hcl 25 Mg Tablet) 25 mg PO Q6H PRN PRN Reason: Anxiety Last Admin: 10/31/21 00:22 Dose: 25 mg Lactated Ringer's (Lr) 1,000 mls @ 50 mls/hr IVCONT .Q20H [facility] Last Admin: 11/04/21 10:59 Dose: Not Given Magnesium Hydroxide (Milk Of Magnesia 30 Ml Oral.Susp) 30 ml PO DAILY PRN PRN Reason: Constipation Metoprolol Tartrate (Metoprolol Tartrate 100 Mg Tablet) 100 mg PO BID [facility]; Protocol Last Admin: 11/04/21 09:15 Dose: 100 mg Mirtazapine (Mirtazapine 15 Mg Tablet) 15 mg PO BEDTIME [facility] Last Admin: 11/03/21 20:31 Dose: 15 mg Olanzapine (Olanzapine 2.5 Mg Tablet) 2.5 mg PO Q4H PRN PRN Reason: Psychosis Last Admin: 10/31/21 04:27 Dose: 2.5 mg Olanzapine (Olanzapine 2.5 Mg Tablet) 2.5 mg PO BID [facility] Last Admin: 11/04/21 09:15 Dose: 2.5 mg Trazodone HCl (Trazodone Hcl 50 Mg Tablet) 50 mg PO BEDTIME PRN PRN Reason: Insomnia Last Admin: 10/31/21 20:21 Dose: 50 mg Home Medications Medication Instructions Recorded Confirmed Last Taken Type amlodipine 10 mg tablet 10 mg PO DAILY 03/16/20 10/22/21 10/22/21 History 10 mg calcium carbonate 600 mg-vitamin 1 tab PO DAILY 09/07/20 10/22/21 10/22/21 History D3 20 mcg (800 unit) tablet 1 tab (Caltrate with Vitamin D3) mirtazapine 15 mg tablet 15 mg PO BEDTIME 06/06/21 10/22/21 10/21/21 History 15 mg Physical Exam Vital Signs and Narrative: Vital Signs: Last Vital Signs Temp 98.3 F 11/03/21 09:32 Pulse 75 11/03/21 23:19 Resp 16 11/03/21 23:19 BP 105/62 11/03/21 23:19 Pulse Ox 94 11/03/21 23:19 O2 Del Method 11/03/21 23:19 O2 Flow Rate 2 11/03/21 09:27 BMI result Body Mass Index 18.8 Constitutional - Awake and Alert, No apparent distress Eyes - PERRLA, EOMI Cardiovascular - S1S2, irregularly irregular normal rate, 2+ edema left foot Respiratory - Normal lung expansion, Normal respiratory effort, No respiratory distress, CTA bilaterally Extremities - no calf tenderness bilaterally Skin - Warm/Dry Neurological - Alert & oriented x3, No focal deficit Psychological - Appropriate affect Results Labs CBC and Chem 7: 11/04/21 18:25 Assessment and Plan (1) Edema of left lower extremity: Status: Acute (2) Major depressive disorder, recurrent severe without psychotic features: Status: Acute Plan 81 year old female with history of mdd, dementia, diastolic heart failure, htn, and persistent atrial fibrillation on eliquis with recent episodes of RVR now managed with metoprolol 100mg bid and digoxin anticoagulated with apixiban consulted on for new onset lle edema. 1-LLE edema- new onset -Check BNP to evaluate for CHF exacerbation -Lungs CTA -Check BMP for renal dysfunction -Check venous duplex r/o 2-Chronic HFPEF -Check BNP. Lungs CTA -Consider adding lasix 40mg daily if DVT studies negative 3-Persistent Afib- rate controlled -Continue eliquis for anticoagulation (follows with cardiology outpt on 2.5mg BID) -Continue digoxin and metoprolol [id number] -Continue amlodipine, metoprolol 5- MDD -Plan per psychiatry Will continue to follow as needed and make recommendations based on study results. Please message with any questions.
[2021-11-04 18:53] LABS: Anion Gap 16 (12-20); Blood Urea Nitrogen 38 mg/dL (9-16); Calcium 9.5 mg/dL (8.4-10.2); Carbon Dioxide 26 mmol/L (22-29); Chloride 104 mmol/L (96-108); Creatinine Clr Calc Pharmacy 28.1; Estimated Glomerular Filt Rate 49; Glucose Random 140 mg/dL (60-115); Potassium 4.1 mmol/L (3.3-5.1); Sodium 142 mmol/L (135-145)
[2021-11-04 19:01] LABS: B Type Natriuretic Peptide 681 pg/mL (<100)
[2021-11-04 20:34] VITALS: BP 136/58; PULSE 86; RESP 20; TEMP 35.9; O2SAT 96
[2021-11-04] MEDS: Mirtazapine 15 MG TABLET PO (20:35)
[2021-11-04] MEDS: Atorvastatin Calcium 40 MG TABLET PO (20:35)
[2021-11-05] MEDS: Furosemide 20 MG TABLET PO (08:49)
[2021-11-05] MEDS: amLODIPine Besylate 10 MG TABLET PO (08:49)
[2021-11-05] MEDS: Metoprolol Tartrate 100 MG TABLET PO ×2 (08:49→19:58)
[2021-11-05] MEDS: Apixaban 2.5 MG TABLET PO ×2 (08:49→19:58)
[2021-11-05] MEDS: Calcium + Vitamin D 250 MG TABLET 500 MG PO (08:50)
[2021-11-05] MEDS: OLANZapine 2.5 MG TABLET PO ×2 (08:50→19:58)
[2021-11-05] MEDS: DULoxetine HCl 30 MG CAPSULE.DR PO ×2 (08:51→19:58)
--- NOTE | 2021-11-05 16:08 | HO.PSYCHPN ---
Subjective Subjective Date of Service: 11/05/21 Reason For Visit: Depression Subjective Notes: Conditional Voluntary Interim History: Patient anxious and ruminating [place] affect he eating better. Tolerating ECT started on diuretic Mental Status Exam Mental Status Exam Patient Appearance: Well Grooomed Patient Orientation: Person and Situation Level of Consciousness: Awake Patient Behavior: Cooperative Mood Description: Constricted Affect Description: Calm Patient Cognition Impaired: Yes Ability to Follow Directions: Good Speech Pattern: Clear Hallucinations: None Delusions: Not Present Thought Process: Intact Thought Content: positive for Circumstantial Judgement: Fair Diagnostics Vital Signs (24Hr): Vital Signs - 24 hr 11/04/21 20:34 Temperature 96.6 F L Pulse Rate 86 Respiratory Rate 20 Blood Pressure 136/58 L Pulse Oximetry 96 Oxygen Delivery Method Room Air BMI result Body Mass Index 18.8 Labs Results: 11/04/21 18:25 Labs: Laboratory Results - last 48 hr 11/04/21 11/04/21 18:25 18:25 Sodium 142 Potassium 4.1 Chloride 104 Carbon Dioxide 26 Anion Gap 16 BUN 38 H D Creatinine 1.07 Estim Creat Clear Calc 28.1 Estimated GFR 49 Random Glucose 140 H Calcium 9.5 B-Natriuretic Peptide 681 H Medications Medications Current Medications Acetaminophen (Acetaminophen 325 Mg Tablet) 650 mg PO Q6H PRN PRN Reason: Pain, Mild (Pain Scale 1-3) Last Admin: 10/31/21 20:20 Dose: 650 mg Al Hydroxide/Mg Hydroxide (Magnesium Hydrox/Alum Hydrox 30 Ml Oral.Susp) 30 ml PO Q6H PRN PRN Reason: Heartburn/Nausea Amlodipine Besylate (Amlodipine Besylate 10 Mg Tablet) 10 mg PO DAILY [facility]; Protocol Last Admin: 11/05/21 08:49 Dose: 10 mg Apixaban (Apixaban 2.5 Mg Tablet) 2.5 mg PO BID [facility] Last Admin: 11/05/21 08:49 Dose: 2.5 mg Atorvastatin Calcium (Atorvastatin Calcium 40 Mg Tablet) 40 mg PO BEDTIME [facility] Last Admin: 11/04/21 20:35 Dose: 40 mg Calcium Carbonate/Cholecalciferol (Calcium + Vitamin D 250 Mg Tablet) 500 mg PO DAILY [facility] Last Admin: 11/05/21 08:50 Dose: 500 mg Digoxin (Digoxin 0.125 Mg Tablet) 0.125 mg PO TuWeThFr@0900 [facility] Last Admin: 11/03/21 12:12 Dose: 0.125 mg Duloxetine HCl (Duloxetine Hcl 30 Mg Capsule.Dr) 30 mg PO BID [facility] Last Admin: 11/05/21 08:51 Dose: 30 mg Fluoxetine HCl (Fluoxetine Hcl Oral Solution 20 Mg/5 Ml Solution) 10 mg PO DAILY PRN PRN Reason: if pt refuses duloxetine Furosemide (Furosemide 20 Mg Tablet) 20 mg PO DAILY [facility]; Protocol Last Admin: 11/05/21 08:49 Dose: 20 mg Hydroxyzine HCl (Hydroxyzine Hcl 25 Mg Tablet) 25 mg PO Q6H PRN PRN Reason: Anxiety Last Admin: 10/31/21 00:22 Dose: 25 mg Magnesium Hydroxide (Milk Of Magnesia 30 Ml Oral.Susp) 30 ml PO DAILY PRN PRN Reason: Constipation Metoprolol Tartrate (Metoprolol Tartrate 100 Mg Tablet) 100 mg PO BID [facility]; Protocol Last Admin: 11/05/21 08:49 Dose: 100 mg Mirtazapine (Mirtazapine 15 Mg Tablet) 15 mg PO BEDTIME [facility] Last Admin: 11/04/21 20:35 Dose: 15 mg Olanzapine (Olanzapine 2.5 Mg Tablet) 2.5 mg PO Q4H PRN PRN Reason: Psychosis Last Admin: 10/31/21 04:27 Dose: 2.5 mg Olanzapine (Olanzapine 2.5 Mg Tablet) 2.5 mg PO BID [facility] Last Admin: 11/05/21 08:50 Dose: 2.5 mg Trazodone HCl (Trazodone Hcl 50 Mg Tablet) 50 mg PO BEDTIME PRN PRN Reason: Insomnia Last Admin: 10/31/21 20:21 Dose: 50 mg Allergies Allergies Allergy/AdvReac Type Severity Reaction Status Date / Time morphine AdvReac Severe Alternate Verified 09/27/21 10:25 mental status Assessment & Plan Assessment & Plan (1) Major depressive disorder, recurrent severe without psychotic features: Status: Acute Code(s): F33.2 - Major depressive disorder, recurrent severe without psychotic features Assessment and Plan: Continue Cymbalta dose lowered with renal insufficiency check labs in a.m. discussion healthcare proxy Check labs in a.m. consider ECT try and differentiate cognitive issues versus depression difficult to tease out 10/26/2021 Cardiology consult reviewed also discussed case with hospitalist service informed consent obtained try to review treatment ECT with patient. EKG shows AFib in the 80s Give metoprolol in morning prior to treatment. 11/04/2021 Patient seen has been having good response to ECT. Left lower extremity edema noted. Patient on Eliquis. Unclear etiology no calf pain. Hospitalist consult 11/05/2021 Patient negative for DVT start diuretic continue ECT (2) HTN (hypertension): Status: Acute Code(s): I10 - Essential (primary) hypertension (3) Atrial fibrillation with rapid ventricular response: Status: Acute Code(s): I48.91 - Unspecified atrial fibrillation Assessment and Plan: Continue metoprolol monitor rate Plan Patient severely depressed and withdrawn some intake noted but significantly decreased. Some periods of elevated mood states and talking about prostitutes somewhat pressured has been intermittently observed per but generally severely depressed withdrawn poor concentration attention hopeless helpless generally not very forthcoming guarded depressed sad sh of her and daughter Plan: 1. Continue same treatment. 2. Continue ECT. I spent minutes with the patient and/or on the patient floor today, greater than?50% of which was spent counseling/coordinating care. Reason for contiued inpatient stay Substantial Risk for: harm to self, inability to function and rapid decompensation
[2021-11-05] MEDS: Mirtazapine 15 MG TABLET PO (19:58)
[2021-11-05] MEDS: Atorvastatin Calcium 40 MG TABLET PO (19:58)
[2021-11-05 20:00] VITALS: BP 119/64; PULSE 83; RESP 16; TEMP 36.7; O2SAT 95
[2021-11-06] MEDS: DULoxetine HCl 30 MG CAPSULE.DR PO ×2 (09:52→19:47)
[2021-11-06] MEDS: amLODIPine Besylate 10 MG TABLET PO (09:52)
[2021-11-06] MEDS: Calcium + Vitamin D 250 MG TABLET 500 MG PO (09:53)
[2021-11-06] MEDS: Apixaban 2.5 MG TABLET PO ×2 (09:53→19:47)
[2021-11-06] MEDS: OLANZapine 2.5 MG TABLET PO ×2 (09:53→19:46)
[2021-11-06] MEDS: Metoprolol Tartrate 100 MG TABLET PO ×2 (09:53→19:48)
[2021-11-06] MEDS: Furosemide 20 MG TABLET PO (09:53)
--- NOTE | 2021-11-06 16:27 | HO.PSYCHPN ---
Subjective Subjective Date of Service: 11/06/21 Reason For Visit: Depression Subjective Notes: Conditional Voluntary Interim History: The nursing staff reported that the patient has being confused last night. Probably she had a UTI. On interview the patient was pleasant and cooperative she was aware that she did not have ECT today. We will follow with the results. Mental Status Exam Mental Status Exam Patient Appearance: Well Grooomed Patient Orientation: Person and Situation Level of Consciousness: Awake Patient Behavior: Cooperative Mood Description: Constricted Affect Description: Calm Patient Cognition Impaired: Yes Ability to Follow Directions: Good Speech Pattern: Clear Hallucinations: None Delusions: Not Present Thought Process: Intact Thought Content: positive for Circumstantial Judgement: Fair Diagnostics Vital Signs (24Hr): Vital Signs - 24 hr 11/05/21 20:00 Temperature 98.1 F Pulse Rate 83 Respiratory Rate 16 Blood Pressure 119/64 Pulse Oximetry 95 Oxygen Delivery Method Room Air BMI result Body Mass Index 18.8 Labs Results: 11/04/21 18:25 Labs: Laboratory Results - last 48 hr 11/04/21 11/04/21 18:25 18:25 Sodium 142 Potassium 4.1 Chloride 104 Carbon Dioxide 26 Anion Gap 16 BUN 38 H D Creatinine 1.07 Estim Creat Clear Calc 28.1 Estimated GFR 49 Random Glucose 140 H Calcium 9.5 B-Natriuretic Peptide 681 H Imaging Radiology Impressions: ITS Impressions Venous Duplex 11/05/21 14:21 IMPRESSION: No DVT demonstrated in the left lower extremity. Medications Medications Current Medications Acetaminophen (Acetaminophen 325 Mg Tablet) 650 mg PO Q6H PRN PRN Reason: Pain, Mild (Pain Scale 1-3) Last Admin: 10/31/21 20:20 Dose: 650 mg Al Hydroxide/Mg Hydroxide (Magnesium Hydrox/Alum Hydrox 30 Ml Oral.Susp) 30 ml PO Q6H PRN PRN Reason: Heartburn/Nausea Amlodipine Besylate (Amlodipine Besylate 10 Mg Tablet) 10 mg PO DAILY [facility]; Protocol Last Admin: 11/06/21 09:52 Dose: 10 mg Apixaban (Apixaban 2.5 Mg Tablet) 2.5 mg PO BID [facility] [place] Last Admin: 11/06/21 09:53 Dose: 2.5 mg Atorvastatin Calcium (Atorvastatin Calcium 40 Mg Tablet) 40 mg PO BEDTIME [facility] Last Admin: 11/05/21 19:58 Dose: 40 mg Calcium Carbonate/Cholecalciferol (Calcium + Vitamin D 250 Mg Tablet) 500 mg PO DAILY [facility] Last Admin: 11/06/21 09:53 Dose: 500 mg Digoxin (Digoxin 0.125 Mg Tablet) 0.125 mg PO TuWeThFr@0900 [facility] Last Admin: 11/03/21 12:12 Dose: 0.125 mg Duloxetine HCl (Duloxetine Hcl 30 Mg Capsule.Dr) 30 mg PO BID [facility] Last Admin: 11/06/21 09:52 Dose: 30 mg Fluoxetine HCl (Fluoxetine Hcl Oral Solution 20 Mg/5 Ml Solution) 10 mg PO DAILY PRN PRN Reason: if pt refuses duloxetine Furosemide (Furosemide 20 Mg Tablet) 20 mg PO DAILY [facility]; Protocol Last Admin: 11/06/21 09:53 Dose: 20 mg Hydroxyzine HCl (Hydroxyzine Hcl 25 Mg Tablet) 25 mg PO Q6H PRN PRN Reason: Anxiety Last Admin: 10/31/21 00:22 Dose: 25 mg Magnesium Hydroxide (Milk Of Magnesia 30 Ml Oral.Susp) 30 ml PO DAILY PRN PRN Reason: Constipation Metoprolol Tartrate (Metoprolol Tartrate 100 Mg Tablet) 100 mg PO BID [facility]; Protocol Last Admin: 11/06/21 09:53 Dose: 100 mg Mirtazapine (Mirtazapine 15 Mg Tablet) 15 mg PO BEDTIME [facility] Last Admin: 11/05/21 19:58 Dose: 15 mg Olanzapine (Olanzapine 2.5 Mg Tablet) 2.5 mg PO Q4H PRN PRN Reason: Psychosis Last Admin: 10/31/21 04:27 Dose: 2.5 mg Olanzapine (Olanzapine 2.5 Mg Tablet) 2.5 mg PO BID [facility] Last Admin: 11/06/21 09:53 Dose: 2.5 mg Trazodone HCl (Trazodone Hcl 50 Mg Tablet) 50 mg PO BEDTIME PRN PRN Reason: Insomnia Last Admin: 10/31/21 20:21 Dose: 50 mg Allergies Allergies Allergy/AdvReac Type Severity Reaction Status Date / Time morphine AdvReac Severe Alternate Verified 09/27/21 10:25 mental status Assessment & Plan Assessment & Plan (1) Major depressive disorder, recurrent severe without psychotic features: Status: Acute Code(s): F33.2 - Major depressive disorder, recurrent severe without psychotic features Assessment and Plan: Continue Cymbalta dose lowered with renal insufficiency check labs in a.m. discussion healthcare proxy Check labs in a.m. consider ECT try and differentiate cognitive issues versus depression difficult to tease out 10/26/2021 Cardiology consult reviewed also discussed case with hospitalist service informed consent obtained try to review treatment ECT with patient. EKG shows AFib in the 80s Give metoprolol in morning prior to treatment. 11/04/2021 Patient seen has been having good response to ECT. Left lower extremity edema noted. Patient on Eliquis. Unclear etiology no calf pain. Hospitalist consult (2) HTN (hypertension): Status: Acute Code(s): I10 - Essential (primary) hypertension (3) Atrial fibrillation with rapid ventricular response: Status: Acute Code(s): I48.91 - Unspecified atrial fibrillation Assessment and Plan: Continue metoprolol monitor rate Plan Patient severely depressed and withdrawn some intake noted but significantly decreased. Some periods of elevated mood states and talking about prostitutes somewhat pressured has been intermittently observed per but generally severely depressed withdrawn poor concentration attention hopeless helpless generally not very forthcoming guarded depressed sad sh of her and daughter Plan: 1. Continue same treatment. 2. Continue ECT. I spent ___20___ minutes with the patient and/or on the patient floor today, greater than?50% of which was spent counseling/coordinating care. Reason for contiued inpatient stay Substantial Risk for: inability to function, rapid decompensation and med/psych decompensation
[2021-11-06 17:37] LABS: Appearance Urine Clear; Color Urine Yellow; Glucose Urine UA Negative (Negative); Leukocyte Esterase Urine Small (1+) (Negative); Nitrite Urine Negative (Negative); PH 6.5 (5.0-9.0); Specific Gravity - Urine 1.015 (1.005-1.025); Urine Blood Negative (Negative); Urine Ketones Negative (Negative); Urine Protein Negative (Neg-Trace)
[2021-11-06 17:49] LABS: Bacteria Urine None Seen (None Seen); Hyaline Casts Urine 0-2 /LPF (0-2); RBC Urine 0-2 /HPF (0-2); Squamous Epithelial Cell Urine 0-2 /HPF (0-2); UACC Culture Trigger YES
[2021-11-06] MEDS: Atorvastatin Calcium 40 MG TABLET PO (19:47)
[2021-11-06] MEDS: Mirtazapine 15 MG TABLET PO (19:47)
[2021-11-06 20:00] VITALS: BP 142/75; PULSE 80; RESP 16; TEMP 36.3; O2SAT 97
[2021-11-07 07:30] VITALS: BP 125/71; PULSE 83; RESP 18; TEMP 36.7; O2SAT 97
[2021-11-07 08:38] LABS: Anion Gap 16 (12-20); Blood Urea Nitrogen 19 mg/dL (9-16); Calcium 9.2 mg/dL (8.4-10.2); Carbon Dioxide 25 mmol/L (22-29); Chloride 105 mmol/L (96-108); Creatinine Clr Calc Pharmacy 41.7; Estimated Glomerular Filt Rate > 60; Glucose Random 96 mg/dL (60-115); Sodium 142 mmol/L (135-145)
[2021-11-07] MEDS: DULoxetine HCl 30 MG CAPSULE.DR PO ×2 (09:40→20:32)
[2021-11-07] MEDS: amLODIPine Besylate 10 MG TABLET PO (09:40)
[2021-11-07] MEDS: Calcium + Vitamin D 250 MG TABLET 500 MG PO (09:40)
[2021-11-07] MEDS: Digoxin 0.125 MG TABLET PO (09:41)
[2021-11-07] MEDS: Apixaban 2.5 MG TABLET PO ×2 (09:41→20:32)
[2021-11-07] MEDS: Furosemide 20 MG TABLET PO (09:41)
[2021-11-07] MEDS: Metoprolol Tartrate 100 MG TABLET PO ×2 (09:41→20:32)
[2021-11-07] MEDS: OLANZapine 2.5 MG TABLET PO ×2 (09:42→20:29)
--- NOTE | 2021-11-07 15:22 | HO.PSYCHPN ---
Subjective Subjective Date of Service: 11/07/21 Reason For Visit: Depression Subjective Notes: Conditional Voluntary Interim History: The nursing staff reported that the patient has been restless very anxious in the morning. His urinalysis showed up positive. Even though that she has been more anxious she looks with a brighter affect. Her blood work came back and came up with normal limits but her UA was positive to UTI. On interview the patient denies new symptoms. ECT for tomorrow. Mental Status Exam Mental Status Exam Patient Appearance: Well Grooomed Patient Orientation: Person Level of Consciousness: Awake Patient Behavior: Cooperative Mood Description: Calm Affect Description: Relaxed Patient Cognition Impaired: Yes Ability to Follow Directions: Good Speech Pattern: Appropriate Hallucinations: None Delusions: Not Present Thought Process: Distracted Thought Content: positive for [place] and positive for Circumstantial Judgement: Fair Diagnostics Vital Signs (24Hr): Vital Signs - 24 hr 11/06/21 20:00 11/07/21 07:30 Temperature 97.4 F 98.0 F Pulse Rate 80 83 Respiratory Rate 16 18 Blood Pressure 142/75 H 125/71 Pulse Oximetry 97 97 Oxygen Delivery Method Room Air Room Air BMI result Body Mass Index 18.8 Labs Results: 11/07/21 08:09 Labs: Laboratory Results - last 48 hr 11/06/21 11/07/21 16:05 08:09 Sodium 142 Potassium 4.0 Chloride 105 Carbon Dioxide 25 Anion Gap 16 BUN 19 H Creatinine 0.72 Estim Creat Clear Calc 41.7 Estimated GFR > 60 Random Glucose 96 Calcium 9.2 Urine Color Yellow Urine Appearance Clear Urine pH 6.5 Ur Specific [place] 1.015 Urine Protein Negative Urine Glucose (UA) Negative Urine Ketones Negative Urine Blood Negative Urine Nitrite Negative Ur Leukocyte Esterase Small (1+) H Urine RBC 0-2 Urine WBC 6-10 H Ur Squamous Epith Cells 0-2 Urine Bacteria None Seen Hyaline Casts 0-2 Imaging Radiology Impressions: ITS Impressions Venous Duplex 11/05/21 14:21 IMPRESSION: No DVT demonstrated in the left lower extremity. Medications Medications Current Medications Acetaminophen (Acetaminophen 325 Mg Tablet) 650 mg PO Q6H PRN PRN Reason: Pain, Mild (Pain Scale 1-3) Last Admin: 10/31/21 20:20 Dose: 650 mg Al Hydroxide/Mg Hydroxide (Magnesium Hydrox/Alum Hydrox 30 Ml Oral.Susp) 30 ml PO Q6H PRN PRN Reason: Heartburn/Nausea Amlodipine Besylate (Amlodipine Besylate 10 Mg Tablet) 10 mg PO DAILY [facility]; Protocol Last Admin: 11/07/21 09:40 Dose: 10 mg Apixaban (Apixaban 2.5 Mg Tablet) 2.5 mg PO BID [facility] Last Admin: 11/07/21 09:41 Dose: 2.5 mg Atorvastatin Calcium (Atorvastatin Calcium 40 Mg Tablet) 40 mg PO BEDTIME [facility] Last Admin: 11/06/21 19:47 Dose: 40 mg Calcium Carbonate/Cholecalciferol (Calcium + Vitamin D 250 Mg Tablet) 500 mg PO DAILY [facility] Last Admin: 11/07/21 09:40 Dose: 500 mg Digoxin (Digoxin 0.125 Mg Tablet) 0.125 mg PO [id number] [facility] Last Admin: 11/07/21 09:41 Dose: 0.125 mg Duloxetine HCl (Duloxetine Hcl 30 Mg Capsule.Dr) 30 mg PO BID [facility] Last Admin: 11/07/21 09:40 Dose: 30 mg Fluoxetine HCl (Fluoxetine Hcl Oral Solution 20 Mg/5 Ml Solution) 10 mg PO DAILY PRN PRN Reason: if pt refuses duloxetine Furosemide (Furosemide 20 Mg Tablet) 20 mg PO DAILY [facility]; Protocol Last Admin: 11/07/21 09:41 Dose: 20 mg Hydroxyzine HCl (Hydroxyzine Hcl 25 Mg Tablet) 25 mg PO Q6H PRN PRN Reason: Anxiety Last Admin: 10/31/21 00:22 Dose: 25 mg Magnesium Hydroxide (Milk Of Magnesia 30 Ml Oral.Susp) 30 ml PO DAILY PRN PRN Reason: Constipation Metoprolol Tartrate (Metoprolol Tartrate 100 Mg Tablet) 100 mg PO BID [facility]; Protocol Last Admin: 11/07/21 09:41 Dose: 100 mg Mirtazapine (Mirtazapine 15 Mg Tablet) 15 mg PO BEDTIME [facility] Last Admin: 11/06/21 19:47 Dose: 15 mg Olanzapine (Olanzapine 2.5 Mg Tablet) 2.5 mg PO Q4H PRN PRN Reason: Psychosis Last Admin: 10/31/21 04:27 Dose: 2.5 mg Olanzapine (Olanzapine 2.5 Mg Tablet) 2.5 mg PO BID [facility] Last Admin: 11/07/21 09:42 Dose: 2.5 mg Trazodone HCl (Trazodone Hcl 50 Mg Tablet) 50 mg PO BEDTIME PRN PRN Reason: Insomnia Last Admin: 10/31/21 20:21 Dose: 50 mg Allergies Allergies Allergy/AdvReac Type Severity Reaction Status Date / Time morphine AdvReac Severe Alternate Verified 09/27/21 10:25 mental status Assessment & Plan Assessment & Plan (1) Major depressive disorder, recurrent severe without psychotic features: Status: Acute Code(s): F33.2 - Major depressive disorder, recurrent severe without psychotic features Assessment and Plan: Continue Cymbalta dose lowered with renal insufficiency check labs in a.m. discussion healthcare proxy Check labs in a.m. consider ECT try and differentiate cognitive issues versus depression difficult to tease out Plan: ECT mwf (2) HTN (hypertension): Status: Acute Code(s): I10 - Essential (primary) hypertension (3) Atrial fibrillation with rapid ventricular response: Status: Acute Code(s): I48.91 - Unspecified atrial fibrillation Assessment and Plan: Continue metoprolol monitor rate Plan Patient severely depressed and withdrawn some intake noted but significantly decreased. Some periods of elevated mood states and talking about prostitutes somewhat pressured has been intermittently observed per but generally severely depressed withdrawn poor concentration attention hopeless helpless generally not very forthcoming guarded depressed sad sh of her and daughter Plan: 1. Continue same treatment. 2. Continue ECT. 3. Start Bactrim b.i.d. for UTI. I spent __20____ minutes with the patient and/or on the patient floor today, greater than?50% of which was spent counseling/coordinating care. Reason for contiued inpatient stay Substantial Risk for: inability to function, rapid decompensation and med/psych decompensation
[2021-11-07] MEDS: Sulfamethox/Trimeth 800/160 TABLET 1 TAB PO ×2 (15:44→23:19)
[2021-11-07] MEDS: Mirtazapine 15 MG TABLET PO (20:32)
[2021-11-07] MEDS: hydrOXYzine HCL 25 MG TABLET PO (20:32)
[2021-11-07] MEDS: Atorvastatin Calcium 40 MG TABLET PO (20:32)
[2021-11-08] VITALS (9 sets, daily range): BP systolic 100–154; BP diastolic 52–98; PULSE 75–105; RESP 15–20; TEMP 36.1–36.9; O2SAT 93–97
[2021-11-08] MEDS: Metoprolol Tartrate 100 MG TABLET PO ×2 (05:52→19:38)
[2021-11-08] MEDS: amLODIPine Besylate 10 MG TABLET PO (05:53)
--- NOTE | 2021-11-08 07:28 | HO.ANESPROP2 ---
HPI - Anesthesia Eval Consult details Narrative: Major depression [facility] Active Problems Active Problems: All Active Problems (Updated 11/04/21 @ 19:28 by BEATRIS Willson) Edema of left lower extremity (Acute) Major depressive disorder, recurrent severe without psychotic features (Acute) Atrial fibrillation with rapid ventricular response (Acute) Major depressive disorder (Acute) Delusion (Acute) Dementia (Acute) Compression fracture of T9 vertebra (Acute) E coli bacteremia (Acute) Ocular melanoma (Acute) Delusions (Acute) Bacteriuria (Acute) Depression (Acute) NATE (acute kidney injury) (Acute) Diarrhea (Acute) Uncontrolled hypertension (Acute) Acute diastolic heart failure (Acute) Pleural effusion (Acute) Pleural effusion (Acute) Hemopneumothorax (Acute) Fall (Acute) Fracture, rib (Acute ~02/2020) Atrial fibrillation with rapid ventricular response (Acute) HTN (hypertension) (Acute) Past Medical History Medical History Anxiety Atrial fibrillation with controlled ventricular rate Dementia Depression Diastolic heart failure GERD (gastroesophageal reflux disease) History of rib fracture HTN (hypertension) Major depressive disorder, 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 Father No problems noted. Family history of problems with anesthesia: No Surgical History Surgical History No pertinent past surgical history History of Problems with Anesthesia: No Social History Social History Household Members: Family Household Members Other:: Son, Akil Joe Housing: House Housing Other:: [facility] Do you presently have visiting nurse or other home services: Yes ([facility] services) Unable to assess alcohol history related to: Unable to respond Alcohol intake: never Patient Tobacco Use Status: Never used Tobacco Second Hand Smoke Exposure: No Use of substances other than those prescribed or required for medical reasons: No Currently Displaying Signs/Symptoms of Drug Intoxication Withdrawal: No Have you been hit, kicked, punched, or otherwise hurt by someone within the past year? If so, by whom?: No Do you feel safe in your current relationship?: No Current Relationship Is there a partner from a previous relationship who is making you feel unsafe now?: No Are you DNR?: Yes Advance Directives: Yes Advance Directives Information Provided: Yes (INDU) Advance Directives on File: Yes Advance Directives Date on File: 04/19/21 Do you have thoughts of harming others: None Do you have a plan to hurt others: No Plan Recently lost weight without trying: Yes How much weight loss: 24-33 pounds Eating poorly because of decreased appetite: Yes Nutrition screen score: 6 Nutrition Risks: Poor intake 0-25% >4 days Patient : No : No Poor oral hygiene: No service: No Current occupational status: retired Sexual orientation: Straight/Heterosexual Meds Allergies Allergy/AdvReac Type Severity Reaction Status Date / Time morphine AdvReac Severe Alternate Verified 09/27/21 10:25 mental status Active Medications: Current Medications Acetaminophen (Acetaminophen 325 Mg Tablet) 650 mg PO Q6H PRN PRN Reason: Pain, Mild (Pain Scale 1-3) Last Admin: 10/31/21 20:20 Dose: 650 mg Al Hydroxide/Mg Hydroxide (Magnesium Hydrox/Alum Hydrox 30 Ml Oral.Susp) 30 ml PO Q6H PRN PRN Reason: Heartburn/Nausea Amlodipine Besylate (Amlodipine Besylate 10 Mg Tablet) 10 mg PO DAILY [facility]; Protocol Last Admin: 11/08/21 05:53 Dose: 10 mg Apixaban (Apixaban 2.5 Mg Tablet) 2.5 mg PO BID [facility] Last Admin: 11/07/21 20:32 Dose: 2.5 mg Atorvastatin Calcium (Atorvastatin Calcium 40 Mg Tablet) 40 mg PO BEDTIME [facility] Last Admin: 11/07/21 20:32 Dose: 40 mg Calcium Carbonate/Cholecalciferol (Calcium + Vitamin D 250 Mg Tablet) 500 mg PO DAILY [facility] Last Admin: 11/07/21 09:40 Dose: 500 mg Digoxin (Digoxin 0.125 Mg Tablet) 0.125 mg PO [id number] [facility] Last Admin: 11/07/21 09:41 Dose: 0.125 mg Duloxetine HCl (Duloxetine Hcl 30 Mg Capsule.Dr) 30 mg PO BID [facility] Last Admin: 11/07/21 20:32 Dose: 30 mg Fluoxetine HCl (Fluoxetine Hcl Oral Solution 20 Mg/5 Ml Solution) 10 mg PO DAILY PRN PRN Reason: if pt refuses duloxetine Furosemide (Furosemide 20 Mg Tablet) 20 mg PO DAILY [facility]; Protocol Last Admin: 11/07/21 09:41 Dose: 20 mg Hydroxyzine HCl (Hydroxyzine Hcl 25 Mg Tablet) 25 mg PO Q6H PRN PRN Reason: Anxiety Last Admin: 11/07/21 20:32 Dose: 25 mg Magnesium Hydroxide (Milk Of Magnesia 30 Ml Oral.Susp) 30 ml PO DAILY PRN PRN Reason: Constipation Metoprolol Tartrate (Metoprolol Tartrate 100 Mg Tablet) 100 mg PO BID [facility]; Protocol Last Admin: 11/08/21 05:52 Dose: 100 mg Mirtazapine (Mirtazapine 15 Mg Tablet) 15 mg PO BEDTIME [facility] Last Admin: 11/07/21 20:32 Dose: 15 mg Olanzapine (Olanzapine 2.5 Mg Tablet) 2.5 mg PO Q4H PRN PRN Reason: Psychosis Last Admin: 10/31/21 04:27 Dose: 2.5 mg Olanzapine (Olanzapine 2.5 Mg Tablet) 2.5 mg PO BID [facility] Last Admin: 11/07/21 20:29 Dose: 2.5 mg Trazodone HCl (Trazodone Hcl 50 Mg Tablet) 50 mg PO BEDTIME PRN PRN Reason: Insomnia Last Admin: 10/31/21 20:21 Dose: 50 mg Trimethoprim/Sulfamethoxazole (Sulfamethox/Trimeth 800/160 Tablet) 1 tab PO Q12H [facility] Last Admin: 11/07/21 23:19 Dose: 1 tab Home Medications Medication Instructions Recorded Confirmed Last Taken Type amlodipine 10 mg tablet 10 mg PO DAILY 03/16/20 10/22/21 10/22/21 History 10 mg calcium carbonate 600 mg-vitamin 1 tab PO DAILY 09/07/20 10/22/21 10/22/21 History D3 20 mcg (800 unit) tablet 1 tab (Caltrate with Vitamin D3) mirtazapine 15 mg tablet 15 mg PO BEDTIME 06/06/21 10/22/21 10/21/21 History 15 mg Exam Exam Date and Time: November 08, [id number] Height,Weight and Vital Signs: Height 5 ft Weight 43.9 kg Last Vital Signs Temp 97.7 F 11/08/21 07:07 Pulse 75 11/08/21 07:07 Resp 18 11/08/21 07:07 BP 113/69 11/08/21 07:07 Pulse Ox 94 11/08/21 07:07 O2 Del Method 11/08/21 07:07 O2 Flow Rate 2 11/03/21 09:27 Pertinent Lab Results Pertinent Lab Results: Laboratory Tests 10/22/21 10/23/21 10/25/21 15:10 07:50 09:45 Sodium 142 140 Potassium 4.1 4.2 Chloride 107 104 Carbon Dioxide 27 27 Anion Gap 12 13 BUN 19 H 17 H Creatinine 0.83 0.77 Estim Creat Clear Calc 35.3 37.4 Estimated GFR > 60 > 60 Random Glucose Fasting Glucose 97 101 H Calcium 9.0 9.2 Total Bilirubin 0.5 0.5 AST 23 23 ALT 44 H 44 H Alkaline Phosphatase 55 62 B-Natriuretic Peptide Total Protein 5.5 L 5.9 L Albumin 3.3 L 3.4 L Triglycerides 51 Cholesterol 123 LDL Cholesterol, Calc 54 HDL Cholesterol 59 Urine Color Urine Appearance Urine pH Ur Specific [place] Urine Protein Urine Glucose (UA) Urine Ketones Urine Blood Urine Nitrite Ur Leukocyte Esterase Urine RBC Urine WBC Ur Squamous Epith Cells Urine Bacteria Hyaline Casts COVID-19 ([facility]) Negative COVID-[facility] Com See Note 11/04/21 11/04/21 11/06/21 18:25 18:25 16:05 Sodium 142 Potassium 4.1 Chloride 104 Carbon Dioxide 26 Anion Gap 16 BUN 38 H D Creatinine 1.07 Estim Creat Clear Calc 28.1 Estimated GFR 49 Random Glucose 140 H Fasting Glucose Calcium 9.5 Total Bilirubin AST ALT Alkaline Phosphatase B-Natriuretic Peptide 681 H Total Protein Albumin Triglycerides Cholesterol LDL Cholesterol, Calc HDL Cholesterol Urine Color Yellow Urine Appearance Clear Urine pH 6.5 Ur Specific [place] 1.015 Urine Protein Negative Urine Glucose (UA) Negative Urine Ketones Negative Urine Blood Negative Urine Nitrite Negative Ur Leukocyte Esterase Small (1+) H Urine RBC 0-2 Urine WBC 6-10 H Ur Squamous Epith Cells 0-2 Urine Bacteria None Seen Hyaline Casts 0-2 COVID-19 ([facility]) [facility] 11/07/21 08:09 Sodium 142 Potassium 4.0 Chloride 105 Carbon Dioxide 25 Anion Gap 16 BUN 19 H Creatinine 0.72 Estim Creat Clear Calc 41.7 Estimated GFR > 60 Random Glucose 96 Fasting Glucose Calcium 9.2 Total Bilirubin AST ALT Alkaline Phosphatase B-Natriuretic Peptide Total Protein Albumin Triglycerides Cholesterol LDL Cholesterol, Calc HDL Cholesterol Urine Color Urine Appearance Urine pH Ur Specific [place] Urine Protein Urine Glucose (UA) Urine Ketones Urine Blood Urine Nitrite Ur Leukocyte Esterase Urine RBC Urine WBC Ur Squamous Epith Cells Urine Bacteria Hyaline Casts COVID-19 ([facility]) COVID-19 Clin Com Airway Mallampati Class: III TM Dist: >3cm Neck ROM: Full Heart: irreg irreg s1s2 Lungs: cta b/l Assessment and Plan Assessment Anesthesia Assessment: Anesthesia Plan Discussed and Chart Reviewed Final Anesthetic Review Family History of Problems with Anesthesia: No History of Problems with Anesthesia: No NPO: Yes ASA Class: III Final Preanesthetic Review: No Changes in Pt Med Stat, Meds/Allgs Chart Reviewed, Consent Obtained/Reviewed and Anes Risks/Benef Reviewed Patient Risk: Intermediate Procedure Risk: Intermediate Assessment/Block/Sedation in SS: Assess/Block/Sedation-SS Anesthetic Plan Anesthetic Plan: GA and Agree w/ Assess. and Plan Disposition: Standard PACU
--- NOTE | 2021-11-08 08:52 | MHC.SHP ---
Pre-Procedural Eval Section A Date of Service: 11/08/21 Changes since office visit: Yes New Medical Problems and Yes Changes in Medication; No Cold of Flu in the past 2 weeks and No Patient answered all questions The History & Physical has been completed within 30 days and I have reviewed it.: Yes Section B Chief Complaint: Depression Allergies: Allergies Allergy/AdvReac Type Severity Reaction Status Date / Time morphine AdvReac Severe Alternate Verified 09/27/21 10:25 mental status Plan I have reviewed the history and physical and performed a pertinent physical examination on my patient. No changes have occurred unless specified.
--- NOTE | 2021-11-08 09:13 | HO.ECTPROC ---
ECT Procedure Note Diagnosis/Treatment Date of Service: 11/08/21 Diagnosis: Major Depressive Disorder Current Treatment Number: 4 Treatment: Series Interval Clinical Notes: Patient presents for her 4th ECT in spite of atrial fibrillation she has generally been doing well no significant rhythm abnormalities her mood and behavior are improving ECT Settings Device: THYMATRON DGx Electrode Placement: Right Unilateral Program/Pulse Width: 0.25 Energy Percent: 100 Seizure Duration By EEG (in seconds): 55 Medications Administration General Anesthetic: Etomidate (10) Muscle Relaxant: Succinylcholine (60) Ancillary Medications Anti-emetics: Zofran - Pre ECT Airway Management Airway Management: Bag Mask Ventilation Treatment Recommendations No Changes Recommended: No change Pt Tolerated Procedure w/o Issue: Yes
[2021-11-08] MEDS: Sulfamethox/Trimeth 800/160 TABLET 1 TAB PO ×2 (10:07→19:43)
[2021-11-08] MEDS: Apixaban 2.5 MG TABLET PO ×2 (10:08→19:38)
[2021-11-08] MEDS: Digoxin 0.125 MG TABLET PO (10:08)
[2021-11-08] MEDS: OLANZapine 2.5 MG TABLET PO ×2 (10:08→19:39)
[2021-11-08] MEDS: DULoxetine HCl 30 MG CAPSULE.DR PO ×2 (10:08→19:38)
[2021-11-08] MEDS: Furosemide 20 MG TABLET PO (10:09)
[2021-11-08] MEDS: Calcium + Vitamin D 250 MG TABLET 500 MG PO (10:10)
--- NOTE | 2021-11-08 13:14 | HO.PSYCHPN ---
Subjective Subjective Date of Service: 11/08/21 Reason For Visit: Depression Subjective Notes: Conditional Voluntary Interim History: The nursing staff reported that her affect was been constricted but slightly brighter since the day before, she ate 100% of her meals. Today she went to ECT and she came back very drowsy and needed to be on one-to-one. On interview the patient denies new symptoms. She was extremely tired after ECT and complain of nausea, we will add Mental Status Exam Mental Status Exam Patient Appearance: Well Grooomed Patient Orientation: Person and Situation Level of Consciousness: Awake Patient Behavior: Suspicious Mood Description: Calm Affect Description: Withdrawn Patient Cognition Impaired: Yes Ability to Follow Directions: Good Speech Pattern: Clear Hallucinations: None Delusions: Not Present Thought Process: Distracted Thought Content: positive for [place] Judgement: Fair Diagnostics Vital Signs (24Hr): Vital Signs - 24 hr 11/08/21 06:03 11/08/21 07:07 11/08/21 09:12 Temperature 97.7 F 97.7 F 98.3 F Pulse Rate 89 75 84 Respiratory Rate 16 18 16 Blood Pressure 140/75 H 113/69 149/83 H Pulse Oximetry 94 96 Oxygen Delivery Method Room Air Nasal Cannula Oxygen Flow Rate 3 11/08/21 09:17 11/08/21 09:22 11/08/21 09:27 Temperature 98.5 F Pulse Rate 92 105 H 89 Respiratory Rate 18 15 20 Blood Pressure 148/98 H 138/93 H 154/57 H Pulse Oximetry 97 93 97 Oxygen Delivery Method Nasal Cannula Nasal Cannula Room Air Oxygen Flow Rate 2 11/08/21 09:59 Temperature 97.0 F Pulse Rate 92 Respiratory Rate 17 Blood Pressure 131/76 Pulse Oximetry 94 Oxygen Delivery Method Oxygen Flow Rate BMI result Body Mass Index 18.8 Labs Results: 11/07/21 08:09 Labs: Laboratory Results - last 48 hr 11/06/21 11/07/21 16:05 08:09 Sodium 142 Potassium 4.0 Chloride 105 Carbon Dioxide 25 Anion Gap 16 BUN 19 H Creatinine 0.72 Estim Creat Clear Calc 41.7 Estimated GFR > 60 Random Glucose 96 Calcium 9.2 Urine Color Yellow Urine Appearance Clear Urine pH 6.5 Ur Specific [place] 1.015 Urine Protein Negative Urine Glucose (UA) Negative Urine Ketones Negative Urine Blood Negative Urine Nitrite Negative Ur Leukocyte Esterase Small (1+) H Urine RBC 0-2 Urine WBC 6-10 H Ur Squamous Epith Cells 0-2 Urine Bacteria None Seen Hyaline Casts 0-2 Imaging Radiology Impressions: ITS Impressions Venous Duplex 11/05/21 14:21 IMPRESSION: No DVT demonstrated in the left lower extremity. Medications Medications Current Medications Acetaminophen (Acetaminophen 325 Mg Tablet) 650 mg PO Q6H PRN PRN Reason: Pain, Mild (Pain Scale 1-3) Last Admin: 10/31/21 20:20 Dose: 650 mg Acetaminophen (Acetaminophen 325 Mg Tablet) 650 mg PO ONCE PRN PRN Reason: Pain, Mild (Pain Scale 1-3) Al Hydroxide/Mg Hydroxide (Magnesium Hydrox/Alum Hydrox 30 Ml Oral.Susp) 30 ml PO Q6H PRN PRN Reason: Heartburn/Nausea Amlodipine Besylate (Amlodipine Besylate 10 Mg Tablet) 10 mg PO DAILY [facility]; Protocol Last Admin: 11/08/21 05:53 Dose: 10 mg Apixaban (Apixaban 2.5 Mg Tablet) 2.5 mg PO BID [facility] Last Admin: 11/08/21 10:08 Dose: 2.5 mg Atorvastatin Calcium (Atorvastatin Calcium 40 Mg Tablet) 40 mg PO BEDTIME [facility] Last Admin: 11/07/21 20:32 Dose: 40 mg Calcium Carbonate/Cholecalciferol (Calcium + Vitamin D 250 Mg Tablet) 500 mg PO DAILY [facility] Last Admin: 11/08/21 10:10 Dose: 500 mg Digoxin (Digoxin 0.125 Mg Tablet) 0.125 mg PO [id number]@0900 [facility] Last Admin: 11/08/21 10:08 Dose: 0.125 mg Duloxetine HCl (Duloxetine Hcl 30 Mg Capsule.Dr) 30 mg PO BID [facility] Last Admin: 11/08/21 10:08 Dose: 30 mg Fluoxetine HCl (Fluoxetine Hcl Oral Solution 20 Mg/5 Ml Solution) 10 mg PO DAILY PRN PRN Reason: if pt refuses duloxetine Furosemide (Furosemide 20 Mg Tablet) 20 mg PO DAILY [facility]; Protocol Last Admin: 11/08/21 10:09 Dose: 20 mg Hydroxyzine HCl (Hydroxyzine Hcl 25 Mg Tablet) 25 mg PO Q6H PRN PRN Reason: Anxiety Last Admin: 11/07/21 20:32 Dose: 25 mg Magnesium Hydroxide (Milk Of Magnesia 30 Ml Oral.Susp) 30 ml PO DAILY PRN PRN Reason: Constipation Metoprolol Tartrate (Metoprolol Tartrate 100 Mg Tablet) 100 mg PO BID [facility]; Protocol Last Admin: 11/08/21 05:52 Dose: 100 mg Mirtazapine (Mirtazapine 15 Mg Tablet) 15 mg PO BEDTIME [facility] Last Admin: 11/07/21 20:32 Dose: 15 mg Olanzapine (Olanzapine 2.5 Mg Tablet) 2.5 mg PO Q4H PRN PRN Reason: Psychosis Last Admin: 10/31/21 04:27 Dose: 2.5 mg Olanzapine (Olanzapine 2.5 Mg Tablet) 2.5 mg PO BID [facility] Last Admin: 11/08/21 10:08 Dose: 2.5 mg Ondansetron HCl (Ondansetron Hcl 4 Mg/2 Ml Vial) 4 mg IVPUSH ONCE PRN PRN Reason: Nausea and Vomiting Trazodone HCl (Trazodone Hcl 50 Mg Tablet) 50 mg PO BEDTIME PRN PRN Reason: Insomnia Last Admin: 10/31/21 20:21 Dose: 50 mg Trimethoprim/Sulfamethoxazole (Sulfamethox/Trimeth 800/160 Tablet) 1 tab PO Q12H [facility] Last Admin: 11/08/21 10:07 Dose: 1 tab Allergies Allergies Allergy/AdvReac Type Severity Reaction Status Date / Time morphine AdvReac Severe Alternate Verified 09/27/21 10:25 mental status Assessment & Plan Assessment & Plan (1) Major depressive disorder, recurrent severe without psychotic features: Status: Acute Code(s): F33.2 - Major depressive disorder, recurrent severe without psychotic features Assessment and Plan: Continue Cymbalta dose lowered with renal insufficiency check labs in a.m. discussion healthcare proxy Check labs in a.m. consider ECT try and differentiate cognitive issues versus depression difficult to tease out Plan: ECT mwf (2) HTN (hypertension): Status: Acute Code(s): I10 - Essential (primary) hypertension (3) Atrial fibrillation with rapid ventricular response: Status: Acute Code(s): I48.91 - Unspecified atrial fibrillation Assessment and Plan: Continue metoprolol monitor rate Plan Patient severely depressed and withdrawn some intake noted but significantly decreased. Some periods of elevated mood states and talking about prostitutes somewhat pressured has been intermittently observed per but generally severely depressed withdrawn poor concentration attention hopeless helpless generally not very forthcoming guarded depressed sad sh of her and daughter Plan: 1. Continue same treatment. 2. Continue ECT. 3. Start Bactrim b.i.d. for UTI. I spent __20____ minutes with the patient and/or on the patient floor today, greater than?50% of which was spent counseling/coordinating care. Reason for contiued inpatient stay Substantial Risk for: inability to function, rapid decompensation and med/psych decompensation
[2021-11-08] MEDS: Ondansetron ODT 4 MG TAB.RAPDIS TRANSLINGU (15:23)
[2021-11-08] MEDS: Atorvastatin Calcium 40 MG TABLET PO (19:38)
[2021-11-08] MEDS: Mirtazapine 15 MG TABLET PO (19:38)
[2021-11-08] MEDS: Acetaminophen 325 MG TABLET 650 MG PO (19:43)
[2021-11-09 07:00] VITALS: BMI 17.9
[2021-11-09] MEDS: DULoxetine HCl 30 MG CAPSULE.DR PO ×2 (08:12→20:07)
[2021-11-09] MEDS: OLANZapine 2.5 MG TABLET PO ×2 (08:12→20:06)
[2021-11-09] MEDS: Sulfamethox/Trimeth 800/160 TABLET 1 TAB PO ×2 (08:12→21:46)
[2021-11-09] MEDS: amLODIPine Besylate 10 MG TABLET PO (08:12)
[2021-11-09] MEDS: Metoprolol Tartrate 100 MG TABLET PO ×2 (08:12→20:06)
[2021-11-09] MEDS: Apixaban 2.5 MG TABLET PO ×2 (08:12→20:07)
[2021-11-09] MEDS: Furosemide 20 MG TABLET PO (08:13)
[2021-11-09] MEDS: Digoxin 0.125 MG TABLET PO (08:13)
[2021-11-09] MEDS: Calcium + Vitamin D 250 MG TABLET 500 MG PO (08:13)
--- NOTE | 2021-11-09 15:19 | P.PNPSI_ITS ---
Subjective Subjective Date of Service: 11/09/21 Reason For Visit: Depression Subjective Notes: Conditional Voluntary Interim History: The nursing staff reported that her affect is brighter since she is treated by her UTI. She is able to feed himself and she is more active in groups. On interview the patient denies new symptoms she was aware that she will have ECT tomorrow. Mental Status Exam Mental Status Exam Patient Appearance: Well Grooomed Patient Orientation: Person and Situation Level of Consciousness: Awake Patient Behavior: Cooperative Mood Description: Constricted Affect Description: Calm Patient Cognition Impaired: Yes Ability to Follow Directions: Good Speech Pattern: Clear Hallucinations: None Delusions: Not Present Thought Process: Distracted Thought Content: positive for [place] Judgement: Fair Diagnostics Vital Signs (24Hr): Vital Signs - 24 hr 11/08/21 19:53 Temperature 98.3 F Pulse Rate 87 Respiratory Rate 16 Blood Pressure 100/55 L Pulse Oximetry 95 Oxygen Delivery Method Room Air BMI result Body Mass Index 17.9 Labs Results: 11/07/21 08:09 Imaging Radiology Impressions: ITS Impressions Venous Duplex 11/05/21 14:21 IMPRESSION: No DVT demonstrated in the left lower extremity. Medications Medications Current Medications Acetaminophen (Acetaminophen 325 Mg Tablet) 650 mg PO Q6H PRN PRN Reason: Pain, Mild (Pain Scale 1-3) Last Admin: 10/31/21 20:20 Dose: 650 mg Al Hydroxide/Mg Hydroxide (Magnesium Hydrox/Alum Hydrox 30 Ml Oral.Susp) 30 ml PO Q6H PRN PRN Reason: Heartburn/Nausea Amlodipine Besylate (Amlodipine Besylate 10 Mg Tablet) 10 mg PO DAILY [facility]; Protocol Last Admin: 11/09/21 08:12 Dose: 10 mg Apixaban (Apixaban 2.5 Mg Tablet) 2.5 mg PO BID [facility] Last Admin: 11/09/21 08:12 Dose: 2.5 mg Atorvastatin Calcium (Atorvastatin Calcium 40 Mg Tablet) 40 mg PO BEDTIME [facility] Last Admin: 11/08/21 19:38 Dose: 40 mg Calcium Carbonate/Cholecalciferol (Calcium + Vitamin D 250 Mg Tablet) 500 mg PO DAILY [facility] Last Admin: 11/09/21 08:13 Dose: 500 mg Digoxin (Digoxin 0.125 Mg Tablet) 0.125 mg PO TuWeThFr@0900 [facility] Last Admin: 11/09/21 08:13 Dose: 0.125 mg Duloxetine HCl (Duloxetine Hcl 30 Mg Capsule.Dr) 30 mg PO BID [facility] Last Admin: 11/09/21 08:12 Dose: 30 mg Fluoxetine HCl (Fluoxetine Hcl Oral Solution 20 Mg/5 Ml Solution) 10 mg PO DAILY PRN PRN Reason: if pt refuses duloxetine Furosemide (Furosemide 20 Mg Tablet) 20 mg PO DAILY [facility]; Protocol Last Admin: 11/09/21 08:13 Dose: 20 mg Hydroxyzine HCl (Hydroxyzine Hcl 25 Mg Tablet) 25 mg PO Q6H PRN PRN Reason: Anxiety Last Admin: 11/07/21 20:32 Dose: 25 mg Magnesium Hydroxide (Milk Of Magnesia 30 Ml Oral.Susp) 30 ml PO DAILY PRN PRN Reason: Constipation Metoprolol Tartrate (Metoprolol Tartrate 100 Mg Tablet) 100 mg PO BID [facility]; Protocol Last Admin: 11/09/21 08:12 Dose: 100 mg Mirtazapine (Mirtazapine 15 Mg Tablet) 15 mg PO BEDTIME [facility] Last Admin: 11/08/21 19:38 Dose: 15 mg Olanzapine (Olanzapine 2.5 Mg Tablet) 2.5 mg PO Q4H PRN PRN Reason: Psychosis Last Admin: 10/31/21 04:27 Dose: 2.5 mg Olanzapine (Olanzapine 2.5 Mg Tablet) 2.5 mg PO BID [facility] Last Admin: 11/09/21 08:12 Dose: 2.5 mg Ondansetron HCl (Ondansetron Hcl 4 Mg/2 Ml Vial) 4 mg IVPUSH ONCE PRN PRN Reason: Nausea and Vomiting Ondansetron HCl (Ondansetron Odt 4 Mg Tab.Rapdis) 4 mg TRANSLINGU Q6H PRN PRN Reason: Nausea Last Admin: 11/08/21 15:23 Dose: 4 mg Trazodone HCl (Trazodone Hcl 50 Mg Tablet) 50 mg PO BEDTIME PRN PRN Reason: Insomnia Last Admin: 10/31/21 20:21 Dose: 50 mg Trimethoprim/Sulfamethoxazole (Sulfamethox/Trimeth 800/160 Tablet) 1 tab PO Q12H [facility] Last Admin: 11/09/21 08:12 Dose: 1 tab Allergies Allergies Allergy/AdvReac Type Severity Reaction Status Date / Time morphine AdvReac Severe Alternate Verified 09/27/21 10:25 mental status Assessment & Plan Assessment & Plan (1) Major depressive disorder, recurrent severe without psychotic features: Status: Acute Code(s): F33.2 - Major depressive disorder, recurrent severe without psychotic features Assessment and Plan: Continue Cymbalta dose lowered with renal insufficiency check labs in a.m. discussion healthcare proxy Check labs in a.m. consider ECT try and differentiate cognitive issues versus depression difficult to tease out Plan: ECT mwf (2) HTN (hypertension): Status: Acute Code(s): I10 - Essential (primary) hypertension (3) Atrial fibrillation with rapid ventricular response: Status: Acute Code(s): I48.91 - Unspecified atrial fibrillation Assessment and Plan: Continue metoprolol monitor rate Plan Patient severely depressed and withdrawn some intake noted but significantly decreased. Some periods of elevated mood states and talking about prostitutes somewhat pressured has been intermittently observed per but generally severely depressed withdrawn poor concentration attention hopeless helpless generally not very forthcoming guarded depressed sad sh of her and daughter Plan: 1. Continue same treatment. 2. Continue ECT. 3. Start Bactrim b.i.d. for UTI. 4. ECT tomorrow I spent _20 minutes with the patient and/or on the patient floor today, greater than?50% of which was spent counseling/coordinating care. Reason for contiued inpatient stay Substantial Risk for: inability to function, rapid decompensation and med/psych decompensation
[2021-11-09] MEDS: Ondansetron ODT 4 MG TAB.RAPDIS TRANSLINGU (17:54)
[2021-11-09] MEDS: Atorvastatin Calcium 40 MG TABLET PO (20:06)
[2021-11-09] MEDS: Mirtazapine 15 MG TABLET PO (20:06)
[2021-11-10] VITALS (9 sets, daily range): BP systolic 111–190; BP diastolic 52–115; PULSE 66–136; RESP 14–20; TEMP 36.4–36.9; O2SAT 92–99
[2021-11-10] MEDS: amLODIPine Besylate 10 MG TABLET PO (05:47)
[2021-11-10] MEDS: Metoprolol Tartrate 100 MG TABLET PO ×2 (05:48→21:34)
--- NOTE | 2021-11-10 08:28 | P.PNPSI_ITS ---
Subjective Subjective Date of Service: 11/10/21 Reason For Visit: Depression Subjective Notes: Conditional Voluntary Interim History: the nursing staff reported that the patient has been pleasant and cooperative her affect is brighter and she had been eating 100% of her meals. On interview the patient was anxious since she is going to have ECT today in the afternoon. Mental Status Exam Mental Status Exam Patient Appearance: Well Grooomed Patient Orientation: Person and Situation Level of Consciousness: Awake Patient Behavior: Cooperative Mood Description: Calm Affect Description: Constricted Patient Cognition Impaired: Yes Ability to Follow Directions: Good Speech Pattern: Clear Hallucinations: None Delusions: Not Present Thought Process: Linear Thought Content: positive for [place] Judgement: Fair Diagnostics Vital Signs (24Hr): Vital Signs - 24 hr 11/10/21 05:44 11/10/21 06:02 Temperature 98.4 F 98.4 F Pulse Rate 76 76 Respiratory Rate 16 16 Blood Pressure 135/63 135/63 Pulse Oximetry 94 94 Oxygen Delivery Method Room Air BMI result Body Mass Index 17.9 Labs Results: 11/07/21 08:09 Imaging Radiology Impressions: ITS Impressions Venous Duplex 11/05/21 14:21 IMPRESSION: No DVT demonstrated in the left lower extremity. Medications Medications Current Medications Acetaminophen (Acetaminophen 325 Mg Tablet) 650 mg PO Q6H PRN PRN Reason: Pain, Mild (Pain Scale 1-3) Last Admin: 10/31/21 20:20 Dose: 650 mg Al Hydroxide/Mg Hydroxide (Magnesium Hydrox/Alum Hydrox 30 Ml Oral.Susp) 30 ml PO Q6H PRN PRN Reason: Heartburn/Nausea Amlodipine Besylate (Amlodipine Besylate 10 Mg Tablet) 10 mg PO DAILY [facility]; Protocol Last Admin: 11/10/21 05:47 Dose: 10 mg Apixaban (Apixaban 2.5 Mg Tablet) 2.5 mg PO BID [facility] Last Admin: 11/09/21 20:07 Dose: 2.5 mg Atorvastatin Calcium (Atorvastatin Calcium 40 Mg Tablet) 40 mg PO BEDTIME [facility] Last Admin: 11/09/21 20:06 Dose: 40 mg Calcium Carbonate/Cholecalciferol (Calcium + Vitamin D 250 Mg Tablet) 500 mg PO DAILY [facility] Last Admin: 11/09/21 08:13 Dose: 500 mg Digoxin (Digoxin 0.125 Mg Tablet) 0.125 mg PO TuWeThFr@0900 [facility] Last Admin: 11/09/21 08:13 Dose: 0.125 mg Duloxetine HCl (Duloxetine Hcl 30 Mg Capsule.Dr) 30 mg PO BID [facility] Last Admin: 11/09/21 20:07 Dose: 30 mg Fluoxetine HCl (Fluoxetine Hcl Oral Solution 20 Mg/5 Ml Solution) 10 mg PO DAILY PRN PRN Reason: if pt refuses duloxetine Furosemide (Furosemide 20 Mg Tablet) 20 mg PO DAILY [facility]; Protocol Last Admin: 11/09/21 08:13 Dose: 20 mg Hydroxyzine HCl (Hydroxyzine Hcl 25 Mg Tablet) 25 mg PO Q6H PRN PRN Reason: Anxiety Last Admin: 11/07/21 20:32 Dose: 25 mg Magnesium Hydroxide (Milk Of Magnesia 30 Ml Oral.Susp) 30 ml PO DAILY PRN PRN Reason: Constipation Metoprolol Tartrate (Metoprolol Tartrate 100 Mg Tablet) 100 mg PO BID [facility]; Protocol Last Admin: 11/10/21 05:48 Dose: 100 mg Mirtazapine (Mirtazapine 15 Mg Tablet) 15 mg PO BEDTIME [facility] Last Admin: 11/09/21 20:06 Dose: 15 mg Olanzapine (Olanzapine 2.5 Mg Tablet) 2.5 mg PO Q4H PRN PRN Reason: Psychosis Last Admin: 10/31/21 04:27 Dose: 2.5 mg Olanzapine (Olanzapine 2.5 Mg Tablet) 2.5 mg PO BID [facility] Last Admin: 11/09/21 20:06 Dose: 2.5 mg Ondansetron HCl (Ondansetron Hcl 4 Mg/2 Ml Vial) 4 mg IVPUSH ONCE PRN PRN Reason: Nausea and Vomiting Ondansetron HCl (Ondansetron Odt 4 Mg Tab.Rapdis) 4 mg TRANSLINGU Q6H PRN PRN Reason: Nausea Last Admin: 11/09/21 17:54 Dose: 4 mg Trazodone HCl (Trazodone Hcl 50 Mg Tablet) 50 mg PO BEDTIME PRN PRN Reason: Insomnia Last Admin: 10/31/21 20:21 Dose: 50 mg Trimethoprim/Sulfamethoxazole (Sulfamethox/Trimeth 800/160 Tablet) 1 tab PO Q12H [facility] Last Admin: 11/09/21 21:46 Dose: 1 tab Allergies Allergies Allergy/AdvReac Type Severity Reaction Status Date / Time morphine AdvReac Severe Alternate Verified 09/27/21 10:25 mental status Assessment & Plan Assessment & Plan (1) Major depressive disorder, recurrent severe without psychotic features: Status: Acute Code(s): F33.2 - Major depressive disorder, recurrent severe without psychotic features Assessment and Plan: Continue Cymbalta dose lowered with renal insufficiency check labs in a.m. discussion healthcare proxy Check labs in a.m. consider ECT try and differentiate cognitive issues versus depression difficult to tease out Plan: ECT mwf (2) HTN (hypertension): Status: Acute Code(s): I10 - Essential (primary) hypertension (3) Atrial fibrillation with rapid ventricular response: Status: Acute Code(s): I48.91 - Unspecified atrial fibrillation Assessment and Plan: Continue metoprolol monitor rate Plan Patient severely depressed and withdrawn some intake noted but significantly decreased. Some periods of elevated mood states and talking about prostitutes somewhat pressured has been intermittently observed per but generally severely depressed withdrawn poor concentration attention hopeless helpless generally not very forthcoming guarded depressed sad sh of her and daughter Plan: 1. Continue same treatment. 2. Continue ECT. 3. Start Bactrim b.i.d. for UTI. 4. ECT Today I spent ___20___ minutes with the patient and/or on the patient floor today, greater than?50% of which was spent counseling/coordinating care. Reason for contiued inpatient stay Substantial Risk for: inability to function, rapid decompensation and med/psych decompensation
--- NOTE | 2021-11-10 13:40 | P.CONAN_ITS ---
HPI - Anesthesia Eval Consult details Narrative: Major depressive disorder [facility] Active Problems Active Problems: All Active Problems (Updated 11/04/21 @ 19:28 by BEATRIS Willson) Edema of left lower extremity (Acute) Major depressive disorder, recurrent severe without psychotic features (Acute) Atrial fibrillation with rapid ventricular response (Acute) Major depressive disorder (Acute) Delusion (Acute) Dementia (Acute) Compression fracture of T9 vertebra (Acute) E coli bacteremia (Acute) Ocular melanoma (Acute) Delusions (Acute) Bacteriuria (Acute) Depression (Acute) NATE (acute kidney injury) (Acute) Diarrhea (Acute) Uncontrolled hypertension (Acute) Acute diastolic heart failure (Acute) Pleural effusion (Acute) Pleural effusion (Acute) Hemopneumothorax (Acute) Fall (Acute) Fracture, rib (Acute ~02/2020) Atrial fibrillation with rapid ventricular response (Acute) HTN (hypertension) (Acute) Past Medical History Medical History Anxiety Atrial fibrillation with controlled ventricular rate Dementia Depression Diastolic heart failure GERD (gastroesophageal reflux disease) History of rib fracture HTN (hypertension) Major depressive disorder, 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 Father No problems noted. Family history of problems with anesthesia: No Surgical History Surgical History No pertinent past surgical history History of Problems with Anesthesia: No Social History Social History Household Members: Family Household Members Other:: Son, Akil Joe Housing: House Housing Other:: [facility] Do you presently have visiting nurse or other home services: Yes ([facility] services) Unable to assess alcohol history related to: Unable to respond Alcohol intake: never Patient Tobacco Use Status: Never used Tobacco Second Hand Smoke Exposure: No Use of substances other than those prescribed or required for medical reasons: No Currently Displaying Signs/Symptoms of Drug Intoxication Withdrawal: No Have you been hit, kicked, punched, or otherwise hurt by someone within the past year? If so, by whom?: No Do you feel safe in your current relationship?: No Current Relationship Is there a partner from a previous relationship who is making you feel unsafe now?: No Are you DNR?: Yes Advance Directives: Yes Advance Directives Information Provided: Yes (INDU) Advance Directives on File: Yes Advance Directives Date on File: 04/19/21 Do you have thoughts of harming others: None Do you have a plan to hurt others: No Plan Recently lost weight without trying: Yes How much weight loss: 24-33 pounds Eating poorly because of decreased appetite: Yes Nutrition screen score: 6 Nutrition Risks: Poor intake 0-25% >4 days Patient : No : No Poor oral hygiene: No service: No Current occupational status: retired Sexual orientation: Straight/Heterosexual Meds Allergies Allergy/AdvReac Type Severity Reaction Status Date / Time morphine AdvReac Severe Alternate Verified 09/27/21 10:25 mental status Active Medications: Current Medications Acetaminophen (Acetaminophen 325 Mg Tablet) 650 mg PO Q6H PRN PRN Reason: Pain, Mild (Pain Scale 1-3) Last Admin: 10/31/21 20:20 Dose: 650 mg Al Hydroxide/Mg Hydroxide (Magnesium Hydrox/Alum Hydrox 30 Ml Oral.Susp) 30 ml PO Q6H PRN PRN Reason: Heartburn/Nausea Amlodipine Besylate (Amlodipine Besylate 10 Mg Tablet) 10 mg PO DAILY [facility]; Protocol Last Admin: 11/10/21 05:47 Dose: 10 mg Apixaban (Apixaban 2.5 Mg Tablet) 2.5 mg PO BID [facility] Last Admin: 11/09/21 20:07 Dose: 2.5 mg Atorvastatin Calcium (Atorvastatin Calcium 40 Mg Tablet) 40 mg PO BEDTIME [facility] Last Admin: 11/09/21 20:06 Dose: 40 mg Calcium Carbonate/Cholecalciferol (Calcium + Vitamin D 250 Mg Tablet) 500 mg PO DAILY [facility] Last Admin: 11/09/21 08:13 Dose: 500 mg Digoxin (Digoxin 0.125 Mg Tablet) 0.125 mg PO TuWeThFr@0900 [facility] Last Admin: 11/09/21 08:13 Dose: 0.125 mg Duloxetine HCl (Duloxetine Hcl 30 Mg Capsule.Dr) 30 mg PO BID [facility] Last Admin: 11/09/21 20:07 Dose: 30 mg Fluoxetine HCl (Fluoxetine Hcl Oral Solution 20 Mg/5 Ml Solution) 10 mg PO DAILY PRN PRN Reason: if pt refuses duloxetine Furosemide (Furosemide 20 Mg Tablet) 20 mg PO DAILY [facility]; Protocol Last Admin: 11/09/21 08:13 Dose: 20 mg Hydroxyzine HCl (Hydroxyzine Hcl 25 Mg Tablet) 25 mg PO Q6H PRN PRN Reason: Anxiety Last Admin: 11/07/21 20:32 Dose: 25 mg Magnesium Hydroxide (Milk Of Magnesia 30 Ml Oral.Susp) 30 ml PO DAILY PRN PRN Reason: Constipation Metoprolol Tartrate (Metoprolol Tartrate 100 Mg Tablet) 100 mg PO BID [facility]; Protocol Last Admin: 11/10/21 05:48 Dose: 100 mg Mirtazapine (Mirtazapine 15 Mg Tablet) 15 mg PO BEDTIME [facility] Last Admin: 11/09/21 20:06 Dose: 15 mg Olanzapine (Olanzapine 2.5 Mg Tablet) 2.5 mg PO Q4H PRN PRN Reason: Psychosis Last Admin: 10/31/21 04:27 Dose: 2.5 mg Olanzapine (Olanzapine 2.5 Mg Tablet) 2.5 mg PO BID [facility] Last Admin: 11/09/21 20:06 Dose: 2.5 mg Ondansetron HCl (Ondansetron Hcl 4 Mg/2 Ml Vial) 4 mg IVPUSH ONCE PRN PRN Reason: Nausea and Vomiting Ondansetron HCl (Ondansetron Odt 4 Mg Tab.Rapdis) 4 mg TRANSLINGU Q6H PRN PRN Reason: Nausea Last Admin: 11/09/21 17:54 Dose: 4 mg Trazodone HCl (Trazodone Hcl 50 Mg Tablet) 50 mg PO BEDTIME PRN PRN Reason: Insomnia Last Admin: 10/31/21 20:21 Dose: 50 mg Trimethoprim/Sulfamethoxazole (Sulfamethox/Trimeth 800/160 Tablet) 1 tab PO Q12H [facility] Last Admin: 11/09/21 21:46 Dose: 1 tab Home Medications Medication Instructions Recorded Confirmed Last Taken Type amlodipine 10 mg tablet 10 mg PO DAILY 03/16/20 10/22/21 10/22/21 History 10 mg calcium carbonate 600 mg-vitamin 1 tab PO DAILY 09/07/20 10/22/21 10/22/21 History D3 20 mcg (800 unit) tablet 1 tab (Caltrate with Vitamin D3) mirtazapine 15 mg tablet 15 mg PO BEDTIME 06/06/21 10/22/21 10/21/21 History 15 mg Exam Exam Date and Time: November 10, 2021 1340 Height,Weight and Vital Signs: Height 5 ft Weight 41.7 kg Last Vital Signs Temp 98.1 F 11/10/21 08:40 Pulse 66 11/10/21 08:40 Resp 14 11/10/21 08:40 BP 154/72 H 11/10/21 08:40 Pulse Ox 99 11/10/21 08:40 O2 Del Method 11/10/21 08:40 O2 Flow Rate 2 11/08/21 09:17 Pertinent Lab Results Pertinent Lab Results: Laboratory Tests 10/22/21 10/23/21 10/25/21 15:10 07:50 09:45 Sodium 142 140 Potassium 4.1 4.2 Chloride 107 104 Carbon Dioxide 27 27 Anion Gap 12 13 BUN 19 H 17 H Creatinine 0.83 0.77 Estim Creat Clear Calc 35.3 37.4 Estimated GFR > 60 > 60 Random Glucose Fasting Glucose 97 101 H Calcium 9.0 9.2 Total Bilirubin 0.5 0.5 AST 23 23 ALT 44 H 44 H Alkaline Phosphatase 55 62 B-Natriuretic Peptide Total Protein 5.5 L 5.9 L Albumin 3.3 L 3.4 L Triglycerides 51 Cholesterol 123 LDL Cholesterol, Calc 54 HDL Cholesterol 59 Urine Color Urine Appearance Urine pH Ur Specific [place] Urine Protein Urine Glucose (UA) Urine Ketones Urine Blood Urine Nitrite Ur Leukocyte Esterase Urine RBC Urine WBC Ur Squamous Epith Cells Urine Bacteria Hyaline Casts COVID-19 ([facility]) Negative COVID-19 Clin Com See Note 11/04/21 11/04/21 11/06/21 18:25 18:25 16:05 Sodium 142 Potassium 4.1 Chloride 104 Carbon Dioxide 26 Anion Gap 16 BUN 38 H D Creatinine 1.07 Estim Creat Clear Calc 28.1 Estimated GFR 49 Random Glucose 140 H Fasting Glucose Calcium 9.5 Total Bilirubin AST ALT Alkaline Phosphatase B-Natriuretic Peptide 681 H Total Protein Albumin Triglycerides Cholesterol LDL Cholesterol, Calc HDL Cholesterol Urine Color Yellow Urine Appearance Clear Urine pH 6.5 Ur Specific [place] 1.015 Urine Protein Negative Urine Glucose (UA) Negative Urine Ketones Negative Urine Blood Negative Urine Nitrite Negative Ur Leukocyte Esterase Small (1+) H Urine RBC 0-2 Urine WBC 6-10 H Ur Squamous Epith Cells 0-2 Urine Bacteria None Seen Hyaline Casts 0-2 COVID-19 ([facility]) COVID-19 Clin Com 11/07/21 08:09 Sodium 142 Potassium 4.0 Chloride 105 Carbon Dioxide 25 Anion Gap 16 BUN 19 H Creatinine 0.72 Estim Creat Clear Calc 41.7 Estimated GFR > 60 Random Glucose 96 Fasting Glucose Calcium 9.2 Total Bilirubin AST ALT Alkaline Phosphatase B-Natriuretic Peptide Total Protein Albumin Triglycerides Cholesterol LDL Cholesterol, Calc HDL Cholesterol Urine Color Urine Appearance Urine pH Ur Specific [place] Urine Protein Urine Glucose (UA) Urine Ketones Urine Blood Urine Nitrite Ur Leukocyte Esterase Urine RBC Urine WBC Ur Squamous Epith Cells Urine Bacteria Hyaline Casts COVID-19 ([facility]) COVID-19 Clin Com Airway Mallampati Class: II TM Dist: >3cm Neck ROM: Full Loose/Missing/Broken Teeth: No Heart: irreg irreg s1s2 Lungs: cta b/l Assessment and Plan Assessment Anesthesia Assessment: Anesthesia Plan Discussed and Chart Reviewed Final Anesthetic Review Family History of Problems with Anesthesia: No History of Problems with Anesthesia: No NPO: Yes ASA Class: III Final Preanesthetic Review: No Changes in Pt Med Stat, Meds/Allgs Chart Reviewed, Consent Obtained/Reviewed and Anes Risks/Benef Reviewed Patient Risk: Intermediate Procedure Risk: Intermediate Assessment/Block/Sedation in SS: Assess/Block/Sedation-SS Anesthetic Plan Anesthetic Plan: GA and Agree w/ Assess. and Plan Disposition: Standard PACU
--- NOTE | 2021-11-10 14:12 | MHC.SHP ---
Pre-Procedural Eval Section A Date of Service: 11/10/21 The patient is an INPATIENT: Yes Changes since office visit: No Cold of Flu in the past 2 weeks, No New Medical Problems, No Changes in Medication and No Patient answered all questions The History & Physical has been completed within 30 days and I have reviewed it.: Yes Section B Chief Complaint: Depression Allergies: Allergies Allergy/AdvReac Type Severity Reaction Status Date / Time morphine AdvReac Severe Alternate Verified 09/27/21 10:25 mental status Plan I have reviewed the history and physical and performed a pertinent physical examination on my patient. No changes have occurred unless specified.
--- NOTE | 2021-11-10 14:25 | HO.ECTPROC ---
ECT Procedure Note Diagnosis/Treatment Date of Service: 11/10/21 Diagnosis: Major Depressive Disorder Previous ECT Date: 11/08/21 Current Treatment Number: 5 Treatment: Series Interval Clinical Notes: The patient's mood has improved, recently had a UTI that worsened na cognition ECT Settings Device: THYMATRON DGx Electrode Placement: Right Unilateral Program/Pulse Width: 0.25 Energy Percent: 100 Seizure Duration By EEG (in seconds): 42 By Motor Observation (in seconds): 0 Medications Administration General Anesthetic: Etomidate (10) Muscle Relaxant: Succinylcholine (60) Ancillary Medications Analgesics: Torodol - Pre ECT Anti-emetics: Zofran - Pre ECT Airway Management Airway Management: Bag Mask Ventilation Treatment Recommendations No Changes Recommended: No change Pt Tolerated Procedure w/o Issue: Yes
--- NOTE | 2021-11-10 14:40 | MHC.CLN ---
F/U TRAY CURRENTLY ON HOLD DUE TO ECT PROCEDURE. DIET=REGULAR. ENSURE TID PROVIDES ADDITIONAL 1050 KCALS, 60 G PROTEIN. WHEN DIET RESUMES, CONTINUE REGULAR DIET WITH ENSURE TID. RD TO FOLLOW WEEKLY.
[2021-11-10] MEDS: Mirtazapine 15 MG TABLET PO (21:33)
[2021-11-10] MEDS: Apixaban 2.5 MG TABLET PO (21:33)
[2021-11-10] MEDS: Sulfamethox/Trimeth 800/160 TABLET 1 TAB PO (21:34)
[2021-11-10] MEDS: DULoxetine HCl 30 MG CAPSULE.DR PO (21:34)
[2021-11-10] MEDS: OLANZapine 2.5 MG TABLET PO (21:39)
[2021-11-10] MEDS: Atorvastatin Calcium 40 MG TABLET PO (22:08)
[2021-11-11 07:30] VITALS: BP 116/61; PULSE 92; RESP 16; TEMP 36.1; O2SAT 96
[2021-11-11] MEDS: Furosemide 20 MG TABLET PO (08:24)
[2021-11-11] MEDS: amLODIPine Besylate 10 MG TABLET PO (08:24)
[2021-11-11] MEDS: Calcium + Vitamin D 250 MG TABLET 500 MG PO (08:24)
[2021-11-11] MEDS: Metoprolol Tartrate 100 MG TABLET PO ×2 (08:24→20:58)
[2021-11-11] MEDS: OLANZapine 2.5 MG TABLET PO ×2 (08:24→20:57)
[2021-11-11] MEDS: Apixaban 2.5 MG TABLET PO ×2 (08:24→20:56)
[2021-11-11] MEDS: DULoxetine HCl 30 MG CAPSULE.DR PO ×2 (08:24→20:58)
[2021-11-11] MEDS: Sulfamethox/Trimeth 800/160 TABLET 1 TAB PO ×2 (09:20→20:59)
--- NOTE | 2021-11-11 10:43 | HO.PSYCHPN ---
Subjective Subjective Date of Service: 11/11/21 Reason For Visit: Depression Subjective Notes: Conditional Voluntary Interim History: Pt sitting in common area. Pt reports feeling less depressed, no SI/HI. She reports sleeping well. Denies physical concerns. Per nursing, no behavioral concerns, more social and interactive with peers and staff. Medication Compliance: Yes Review of Systems Review of Systems General: No fevers, malaise, unintentional weight loss Cardiovascular: No chest pain, palpitations, +edema lle Respiratory: No shortness of breath, wheezing, cough GI: No abdominal pain, nausea, vomiting, diarrhea, constipation, melena, hematochezia Neuro: No headaches, weakness, paresthesias Skin: No rashes or lesions Mental Status Exam Mental Status Exam Narrative: Appearance:thin, casually groomed, fair hygiene in NAD Behavior:cooperative psychomotor: no agitation or retardation noted Speech:clear, normal rate/rhythm/volume, spontaneous Thought process:linear Thought content:no s/s of psychosis or delusions, feeling better Mood: better Affect: congruent SI:none HI:none VH/AH:none Delusions:none Insight/judgment:improving x 2. Memory/cog: alert, oriented x 3, not formally tested. Diagnostics Vital Signs (24Hr): Vital Signs - 24 hr 11/11/21 21:00 11/12/21 08:00 11/12/21 08:35 Temperature 97.0 F Pulse Rate 76 72 Respiratory Rate 16 16 Blood Pressure 118/63 94/55 L 115/57 L Pulse Oximetry 98 97 Oxygen Delivery Method Room Air Room Air 11/12/21 08:38 11/12/21 08:41 Temperature Pulse Rate Respiratory Rate Blood Pressure 97/57 L 80/49 L Pulse Oximetry Oxygen Delivery Method BMI result Body Mass Index 17.9 Labs Results: 11/07/21 08:09 Imaging Radiology Impressions: ITS Impressions Venous Duplex 11/05/21 14:21 IMPRESSION: No DVT demonstrated in the left lower extremity. Medications Medications Current Medications Acetaminophen (Acetaminophen 325 Mg Tablet) 650 mg PO Q6H PRN PRN Reason: Pain, Mild (Pain Scale 1-3) Last Admin: 10/31/21 20:20 Dose: 650 mg Acetaminophen (Acetaminophen 325 Mg Tablet) 650 mg PO ONCE PRN PRN Reason: Pain, Mild (Pain Scale 1-3) Al Hydroxide/Mg Hydroxide (Magnesium Hydrox/Alum Hydrox 30 Ml Oral.Susp) 30 ml PO Q6H PRN PRN Reason: Heartburn/Nausea Amlodipine Besylate (Amlodipine Besylate 10 Mg Tablet) 10 mg PO DAILY [facility]; Protocol Last Admin: 11/12/21 08:58 Dose: Not Given Apixaban (Apixaban 2.5 Mg Tablet) 2.5 mg PO BID [facility] Last Admin: 11/12/21 08:39 Dose: 2.5 mg Atorvastatin Calcium (Atorvastatin Calcium 40 Mg Tablet) 40 mg PO BEDTIME [facility] Last Admin: 11/11/21 20:59 Dose: 40 mg Calcium Carbonate/Cholecalciferol (Calcium + Vitamin D 250 Mg Tablet) 500 mg PO DAILY [facility] Last Admin: 11/12/21 08:38 Dose: 500 mg Digoxin (Digoxin 0.125 Mg Tablet) 0.125 mg PO TuWeThFr@0900 [facility] Last Admin: 11/10/21 15:38 Dose: Not Given Duloxetine HCl (Duloxetine Hcl 30 Mg Capsule.Dr) 30 mg PO BID [facility] Last Admin: 11/12/21 08:39 Dose: 30 mg Fluoxetine HCl (Fluoxetine Hcl Oral Solution 20 Mg/5 Ml Solution) 10 mg PO DAILY PRN PRN Reason: if pt refuses duloxetine Furosemide (Furosemide 20 Mg Tablet) 20 mg PO DAILY [facility]; Protocol Last Admin: 11/12/21 08:57 Dose: Not Given Hydroxyzine HCl (Hydroxyzine Hcl 25 Mg Tablet) 25 mg PO Q6H PRN PRN Reason: Anxiety Last Admin: 11/07/21 20:32 Dose: 25 mg Magnesium Hydroxide (Milk Of Magnesia 30 Ml Oral.Susp) 30 ml PO DAILY PRN PRN Reason: Constipation Metoprolol Tartrate (Metoprolol Tartrate 100 Mg Tablet) 100 mg PO BID [facility]; Protocol Last Admin: 11/12/21 08:58 Dose: Not Given Mirtazapine (Mirtazapine 15 Mg Tablet) 15 mg PO BEDTIME [facility] Last Admin: 11/11/21 21:07 Dose: 15 mg Olanzapine (Olanzapine 2.5 Mg Tablet) 2.5 mg PO Q4H PRN PRN Reason: Psychosis Last Admin: 10/31/21 04:27 Dose: 2.5 mg Olanzapine (Olanzapine 2.5 Mg Tablet) 2.5 mg PO BID [facility] Last Admin: 11/12/21 08:39 Dose: 2.5 mg Ondansetron HCl (Ondansetron Hcl 4 Mg/2 Ml Vial) 4 mg IVPUSH ONCE PRN PRN Reason: Nausea and Vomiting Ondansetron HCl (Ondansetron Odt 4 Mg Tab.Rapdis) 4 mg TRANSLINGU Q6H PRN PRN Reason: Nausea Last Admin: 11/09/21 17:54 Dose: 4 mg Oxycodone HCl (Oxycodone Hcl Immed Release 5 Mg Tablet) 5 mg PO ONCE PRN PRN Reason: Pain, Severe (Pain Scale 7-10) Trazodone HCl (Trazodone Hcl 50 Mg Tablet) 50 mg PO BEDTIME PRN PRN Reason: Insomnia Last Admin: 11/11/21 21:08 Dose: 50 mg Trimethoprim/Sulfamethoxazole (Sulfamethox/Trimeth 800/160 Tablet) 1 tab PO Q12H [facility] Last Admin: 11/12/21 09:02 Dose: 1 tab Allergies Allergies Allergy/AdvReac Type Severity Reaction Status Date / Time morphine AdvReac Severe Alternate Verified 09/27/21 10:25 mental status Assessment & Plan Assessment & Plan (1) Major depressive disorder, recurrent severe without psychotic features: Status: Acute Code(s): F33.2 - Major depressive disorder, recurrent severe without psychotic features Assessment and Plan: Continue Cymbalta dose lowered with renal insufficiency check labs in a.m. discussion healthcare proxy Check labs in a.m. consider ECT try and differentiate cognitive issues versus depression difficult to tease out Plan: ECT mw 11/11 continue tx plan (2) HTN (hypertension): Status: Acute Code(s): I10 - Essential (primary) hypertension (3) Atrial fibrillation with rapid ventricular response: Status: Acute Code(s): I48.91 - Unspecified atrial fibrillation Assessment and Plan: Continue metoprolol monitor rate Plan Patient severely depressed and withdrawn some intake noted but significantly decreased. Some periods of elevated mood states and talking about prostitutes somewhat pressured has been intermittently observed per but generally severely depressed withdrawn poor concentration attention hopeless helpless generally not very forthcoming guarded depressed sad sh of her and daughter Plan: 1. Continue same treatment. 2. Continue ECT. 3. Start Bactrim b.i.d. for UTI. 4. ECT Today I spent minutes with the patient and/or on the patient floor today, greater than?50% of which was spent counseling/coordinating care. Reason for contiued inpatient stay Substantial Risk for: inability to function
[2021-11-11] MEDS: Atorvastatin Calcium 40 MG TABLET PO (20:59)
[2021-11-11 21:00] VITALS: BP 118/63; PULSE 76; RESP 16; O2SAT 98
[2021-11-11] MEDS: Mirtazapine 15 MG TABLET PO (21:07)
[2021-11-11] MEDS: traZODone HCL 50 MG TABLET PO (21:08)
[2021-11-12 08:00] VITALS: BP 94/55; PULSE 72; RESP 16; TEMP 36.1; O2SAT 97
[2021-11-12 08:35] VITALS: BP 115/57
[2021-11-12 08:38] VITALS: BP 97/57
[2021-11-12] MEDS: Calcium + Vitamin D 250 MG TABLET 500 MG PO (08:38)
[2021-11-12] MEDS: Apixaban 2.5 MG TABLET PO ×2 (08:39→19:52)
[2021-11-12] MEDS: OLANZapine 2.5 MG TABLET PO ×2 (08:39→19:51)
[2021-11-12] MEDS: DULoxetine HCl 30 MG CAPSULE.DR PO ×2 (08:39→19:51)
[2021-11-12 08:41] VITALS: BP 80/49
[2021-11-12] MEDS: Sulfamethox/Trimeth 800/160 TABLET 1 TAB PO ×2 (09:02→20:58)
--- NOTE | 2021-11-12 10:46 | P.PNPSI_ITS ---
Subjective Subjective Date of Service: 11/12/21 Reason For Visit: Depression Subjective Notes: Conditional Voluntary Interim History: Pt resting in bed this morning, reports feeling a bit tired but otherwise well. Pt continues to report feeling less depressed, no SI/HI. She reports sleeping well. Denies physical concerns. Per nursing, no behavioral concerns, more social and interactive with peers and staff. Review of Systems Review of Systems General: No fevers, malaise, unintentional weight loss Cardiovascular: No chest pain, palpitations, +edema lle Respiratory: No shortness of breath, wheezing, cough GI: No abdominal pain, nausea, vomiting, diarrhea, constipation, melena, moy tochezia Neuro: No headaches, weakness, paresthesias Skin: No rashes or lesions Mental Status Exam Mental Status Exam Narrative: Appearance:thin, casually groomed, fair hygiene in NAD Behavior:cooperative psychomotor: no agitation or retardation noted Speech:clear, normal rate/rhythm/volume, spontaneous Thought process:linear Thought content:no s/s of psychosis or delusions, feeling better Mood: better Affect: congruent SI:none HI:none VH/AH:none Delusions:none Insight/judgment:improving x 2. Memory/cog: alert, oriented x 3, not formally tested. Patient Appearance: Well Grooomed Patient Orientation: Person and Situation Level of Consciousness: Awake Patient Behavior: Cooperative Mood Description: Calm Affect Description: Constricted Patient Cognition Impaired: Yes Ability to Follow Directions: Good Speech Pattern: Clear Memory Description: Episodic Impaired Diagnostics Vital Signs (24Hr): Vital Signs - 24 hr 11/11/21 21:00 11/12/21 08:00 11/12/21 08:35 Temperature 97.0 F Pulse Rate 76 72 Respiratory Rate 16 16 Blood Pressure 118/63 94/55 L 115/57 L Pulse Oximetry 98 97 Oxygen Delivery Method Room Air Room Air 11/12/21 08:38 11/12/21 08:41 Temperature Pulse Rate Respiratory Rate Blood Pressure 97/57 L 80/49 L Pulse Oximetry Oxygen Delivery Method BMI result Body Mass Index 17.9 Labs Results: 11/07/21 08:09 Imaging Radiology Impressions: ITS Impressions Venous Duplex 11/05/21 14:21 IMPRESSION: No DVT demonstrated in the left lower extremity. Medications Medications Current Medications Acetaminophen (Acetaminophen 325 Mg Tablet) 650 mg PO Q6H PRN PRN Reason: Pain, Mild (Pain Scale 1-3) Last Admin: 10/31/21 20:20 Dose: 650 mg Acetaminophen (Acetaminophen 325 Mg Tablet) 650 mg PO ONCE PRN PRN Reason: Pain, Mild (Pain Scale 1-3) Al Hydroxide/Mg Hydroxide (Magnesium Hydrox/Alum Hydrox 30 Ml Oral.Susp) 30 ml PO Q6H PRN PRN Reason: Heartburn/Nausea Amlodipine Besylate (Amlodipine Besylate 10 Mg Tablet) 10 mg PO DAILY [facility]; Protocol Last Admin: 11/12/21 08:58 Dose: Not Given Apixaban (Apixaban 2.5 Mg Tablet) 2.5 mg PO BID [facility] Last Admin: 11/12/21 08:39 Dose: 2.5 mg Atorvastatin Calcium (Atorvastatin Calcium 40 Mg Tablet) 40 mg PO BEDTIME [facility] Last Admin: 11/11/21 20:59 Dose: 40 mg Calcium Carbonate/Cholecalciferol (Calcium + Vitamin D 250 Mg Tablet) 500 mg PO DAILY [facility] Last Admin: 11/12/21 08:38 Dose: 500 mg Digoxin (Digoxin 0.125 Mg Tablet) 0.125 mg PO TuWeThFr@0900 [facility] Last Admin: 11/10/21 15:38 Dose: Not Given Duloxetine HCl (Duloxetine Hcl 30 Mg Capsule.Dr) 30 mg PO BID [facility] Last Admin: 11/12/21 08:39 Dose: 30 mg Fluoxetine HCl (Fluoxetine Hcl Oral Solution 20 Mg/5 Ml Solution) 10 mg PO DAILY PRN PRN Reason: if pt refuses duloxetine Furosemide (Furosemide 20 Mg Tablet) 20 mg PO DAILY [facility]; Protocol Last Admin: 11/12/21 08:57 Dose: Not Given Hydroxyzine HCl (Hydroxyzine Hcl 25 Mg Tablet) 25 mg PO Q6H PRN PRN Reason: Anxiety Last Admin: 11/07/21 20:32 Dose: 25 mg Magnesium Hydroxide (Milk Of Magnesia 30 Ml Oral.Susp) 30 ml PO DAILY PRN PRN Reason: Constipation Metoprolol Tartrate (Metoprolol Tartrate 100 Mg Tablet) 100 mg PO BID [facility]; Protocol Last Admin: 11/12/21 08:58 Dose: Not Given Mirtazapine (Mirtazapine 15 Mg Tablet) 15 mg PO BEDTIME [facility] Last Admin: 11/11/21 21:07 Dose: 15 mg Olanzapine (Olanzapine 2.5 Mg Tablet) 2.5 mg PO Q4H PRN PRN Reason: Psychosis Last Admin: 10/31/21 04:27 Dose: 2.5 mg Olanzapine (Olanzapine 2.5 Mg Tablet) 2.5 mg PO BID [facility] Last Admin: 11/12/21 08:39 Dose: 2.5 mg Ondansetron HCl (Ondansetron Hcl 4 Mg/2 Ml Vial) 4 mg IVPUSH ONCE PRN PRN Reason: Nausea and Vomiting Ondansetron HCl (Ondansetron Odt 4 Mg Tab.Rapdis) 4 mg TRANSLINGU Q6H PRN PRN Reason: Nausea Last Admin: 11/09/21 17:54 Dose: 4 mg Oxycodone HCl (Oxycodone Hcl Immed Release 5 Mg Tablet) 5 mg PO ONCE PRN PRN Reason: Pain, Severe (Pain Scale 7-10) Trazodone HCl (Trazodone Hcl 50 Mg Tablet) 50 mg PO BEDTIME PRN PRN Reason: Insomnia Last Admin: 11/11/21 21:08 Dose: 50 mg Trimethoprim/Sulfamethoxazole (Sulfamethox/Trimeth 800/160 Tablet) 1 tab PO Q12H [facility] Last Admin: 11/12/21 09:02 Dose: 1 tab Allergies Allergies Allergy/AdvReac Type Severity Reaction Status Date / Time morphine AdvReac Severe Alternate Verified 09/27/21 10:25 mental status Assessment & Plan Assessment & Plan (1) Major depressive disorder, recurrent severe without psychotic features: Status: Acute Code(s): F33.2 - Major depressive disorder, recurrent severe without psychotic features Assessment and Plan: Continue Cymbalta dose lowered with renal insufficiency check labs in a.m. discussion healthcare proxy Check labs in a.m. consider ECT try and differentiate cognitive issues versus de pression difficult to tease out Plan: ECT mw 11/11 continue tx plan (2) HTN (hypertension): Status: Acute Code(s): I10 - Essential (primary) hypertension (3) Atrial fibrillation with rapid ventricular response: Status: Acute Code(s): I48.91 - Unspecified atrial fibrillation Assessment and Plan: Continue metoprolol monitor rate Plan Patient severely depressed and withdrawn some intake noted but significantly d ecreased. Some periods of elevated mood states and talking about prostitutes somewhat pressured has been intermittently observed per but generally severely depressed withdrawn poor concentration attention hopeless helpless generally not very forthcoming guarded depressed sad sh of her and daughter Plan: 1. Continue same treatment. 2. Continue ECT. 3. Start Bactrim b.i.d. for UTI. 4. ECT Today 11/12 continue current plan. I spent minutes with the patient and/or on the patient floor today, greater than?50% of which was spent counseling/coordinating care. Reason for contiued inpatient stay Substantial Risk for: inability to function
[2021-11-12 15:11] VITALS: BP 114/73; PULSE 86
[2021-11-12] MEDS: Atorvastatin Calcium 40 MG TABLET PO (19:51)
[2021-11-12] MEDS: Mirtazapine 15 MG TABLET PO (19:51)
[2021-11-12] MEDS: Metoprolol Tartrate 100 MG TABLET PO (19:52)
[2021-11-12 20:54] VITALS: BP 118/73; PULSE 109; RESP 16; TEMP 36.6; O2SAT 97
[2021-11-13] VITALS (11 sets, daily range): BP systolic 101–155; BP diastolic 58–93; PULSE 64–98; RESP 12–18; TEMP 35.9–36.8; O2SAT 95–100
[2021-11-13] MEDS: Metoprolol Tartrate 100 MG TABLET PO ×2 (06:17→20:21)
--- NOTE | 2021-11-13 06:40 | P.CONAN_ITS ---
[facility] Active Problems Active Problems: All Active Problems (Updated 11/04/21 @ 19:28 by BEATRIS Willson) Edema of left lower extremity (Acute) Major depressive disorder, recurrent severe without psychotic features (Acute) Atrial fibrillation with rapid ventricular response (Acute) Major depressive disorder (Acute) Delusion (Acute) Dementia (Acute) Compression fracture of T9 vertebra (Acute) E coli bacteremia (Acute) Ocular melanoma (Acute) Delusions (Acute) Bacteriuria (Acute) Depression (Acute) NATE (acute kidney injury) (Acute) Diarrhea (Acute) Uncontrolled hypertension (Acute) Acute diastolic heart failure (Acute) Pleural effusion (Acute) Pleural effusion (Acute) Hemopneumothorax (Acute) Fall (Acute) Fracture, rib (Acute ~02/2020) Atrial fibrillation with rapid ventricular response (Acute) HTN (hypertension) (Acute) Past Medical History Medical History Anxiety Atrial fibrillation with controlled ventricular rate Dementia Depression Diastolic heart failure GERD (gastroesophageal reflux disease) History of rib fracture HTN (hypertension) Major depressive disorder, 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 Father No problems noted. Family history of problems with anesthesia: No Surgical History Surgical History No pertinent past surgical history History of Problems with Anesthesia: No Social History Social History Household Members: Family Household Members Other:: Son, Akil Joe Housing: House Housing Other:: [facility] Do you presently have visiting nurse or other home services: Yes ([facility] services) Unable to assess alcohol history related to: Unable to respond Alcohol intake: never Patient Tobacco Use Status: Never used Tobacco Second Hand Smoke Exposure: No Use of substances other than those prescribed or required for medical reasons: No Currently Displaying Signs/Symptoms of Drug Intoxication Withdrawal: No Have you been hit, kicked, punched, or otherwise hurt by someone within the past year? If so, by whom?: No Do you feel safe in your current relationship?: No Current Relationship Is there a partner from a previous relationship who is making you feel unsafe now?: No Are you DNR?: Yes Advance Directives: Yes Advance Directives Information Provided: Yes (MOLST) Advance Directives on File: Yes Advance Directives Date on File: 04/19/21 Do you have thoughts of harming others: None Do you have a plan to hurt others: No Plan Recently lost weight without trying: Yes How much weight loss: 24-33 pounds Eating poorly because of decreased appetite: Yes Nutrition screen score: 6 Nutrition Risks: Poor intake 0-25% >4 days Patient : No : No Poor oral hygiene: No service: No Current occupational status: retired Sexual orientation: Straight/Heterosexual Meds Allergies Allergy/AdvReac Type Severity Reaction Status Date / Time morphine AdvReac Severe Alternate Verified 09/27/21 10:25 mental status Active Medications: Current Medications Acetaminophen (Acetaminophen 325 Mg Tablet) 650 mg PO Q6H PRN PRN Reason: Pain, Mild (Pain Scale 1-3) Last Admin: 10/31/21 20:20 Dose: 650 mg Acetaminophen (Acetaminophen 325 Mg Tablet) 650 mg PO ONCE PRN PRN Reason: Pain, Mild (Pain Scale 1-3) Al Hydroxide/Mg Hydroxide (Magnesium Hydrox/Alum Hydrox 30 Ml Oral.Susp) 30 ml PO Q6H PRN PRN Reason: Heartburn/Nausea Amlodipine Besylate (Amlodipine Besylate 10 Mg Tablet) 10 mg PO DAILY [facility]; Protocol Last Admin: 11/12/21 08:58 Dose: Not Given Apixaban (Apixaban 2.5 Mg Tablet) 2.5 mg PO BID [facility] Last Admin: 11/12/21 19:52 Dose: 2.5 mg Atorvastatin Calcium (Atorvastatin Calcium 40 Mg Tablet) 40 mg PO BEDTIME [facility] Last Admin: 11/12/21 19:51 Dose: 40 mg Calcium Carbonate/Cholecalciferol (Calcium + Vitamin D 250 Mg Tablet) 500 mg PO DAILY [facility] Last Admin: 11/12/21 08:38 Dose: 500 mg Digoxin (Digoxin 0.125 Mg Tablet) 0.125 mg PO TuWeThFr@0900 [facility] Last Admin: 11/10/21 15:38 Dose: Not Given Duloxetine HCl (Duloxetine Hcl 30 Mg Capsule.Dr) 30 mg PO BID [facility] Last Admin: 11/12/21 19:51 Dose: 30 mg Fluoxetine HCl (Fluoxetine Hcl Oral Solution 20 Mg/5 Ml Solution) 10 mg PO DAILY PRN PRN Reason: if pt refuses duloxetine Furosemide (Furosemide 20 Mg Tablet) 20 mg PO DAILY [facility]; Protocol Last Admin: 11/12/21 08:57 Dose: Not Given Hydroxyzine HCl (Hydroxyzine Hcl 25 Mg Tablet) 25 mg PO Q6H PRN PRN Reason: Anxiety Last Admin: 11/07/21 20:32 Dose: 25 mg Magnesium Hydroxide (Milk Of Magnesia 30 Ml Oral.Susp) 30 ml PO DAILY PRN PRN Reason: Constipation Metoprolol Tartrate (Metoprolol Tartrate 100 Mg Tablet) 100 mg PO BID [facility]; Protocol Last Admin: 11/13/21 06:17 Dose: 100 mg Mirtazapine (Mirtazapine 15 Mg Tablet) 15 mg PO BEDTIME [facility] Last Admin: 11/12/21 19:51 Dose: 15 mg Olanzapine (Olanzapine 2.5 Mg Tablet) 2.5 mg PO Q4H PRN PRN Reason: Psychosis Last Admin: 10/31/21 04:27 Dose: 2.5 mg Olanzapine (Olanzapine 2.5 Mg Tablet) 2.5 mg PO BID [facility] Last Admin: 11/12/21 19:51 Dose: 2.5 mg Ondansetron HCl (Ondansetron Hcl 4 Mg/2 Ml Vial) 4 mg IVPUSH ONCE PRN PRN Reason: Nausea and Vomiting Ondansetron HCl (Ondansetron Odt 4 Mg Tab.Rapdis) 4 mg TRANSLINGU Q6H PRN PRN Reason: Nausea Last Admin: 11/09/21 17:54 Dose: 4 mg Oxycodone HCl (Oxycodone Hcl Immed Release 5 Mg Tablet) 5 mg PO ONCE PRN PRN Reason: Pain, Severe (Pain Scale 7-10) Trazodone HCl (Trazodone Hcl 50 Mg Tablet) 50 mg PO BEDTIME PRN PRN Reason: Insomnia Last Admin: 11/11/21 21:08 Dose: 50 mg Trimethoprim/Sulfamethoxazole (Sulfamethox/Trimeth 800/160 Tablet) 1 tab PO Q12H [facility] Last Admin: 11/12/21 20:58 Dose: 1 tab Home Medications Medication Instructions Recorded Confirmed Last Taken Type amlodipine 10 mg tablet 10 mg PO DAILY 03/16/20 10/22/21 10/22/21 History 10 mg calcium carbonate 600 mg-vitamin 1 tab PO DAILY 09/07/20 10/22/21 10/22/21 Hist ory D3 20 mcg (800 unit) tablet 1 tab (Caltrate with Vitamin D3) mirtazapine 15 mg tablet 15 mg PO BEDTIME 06/06/21 10/22/21 10/21/21 History 15 mg Exam Exam Date and Time: November 13, 2021 0640 Height,Weight and Vital Signs: Height 5 ft Weight 41.7 kg Last Vital Signs Temp 98.2 F 11/13/21 06:15 Pulse 86 11/13/21 06:15 Resp 16 11/13/21 06:15 BP 123/60 11/13/21 06:15 Pulse Ox 100 11/13/21 06:15 O2 Del Method 11/13/21 06:15 O2 Flow Rate 3 11/10/21 14:44 Pertinent Lab Results Pertinent Lab Results: Laboratory Tests 10/22/21 10/23/21 10/25/21 15:10 07:50 09:45 Sodium 142 140 Potassium 4.1 4.2 Chloride 107 104 Carbon Dioxide 27 27 Anion Gap 12 13 BUN 19 H 17 H Creatinine 0.83 0.77 Estim Creat Clear Calc 35.3 37.4 Estimated GFR > 60 > 60 Random Glucose Fasting Glucose 97 101 H Calcium 9.0 9.2 Total Bilirubin 0.5 0.5 AST 23 23 ALT 44 H 44 H Alkaline Phosphatase 55 62 B-Natriuretic Peptide Total Protein 5.5 L 5.9 L Albumin 3.3 L 3.4 L Triglycerides 51 Cholesterol 123 LDL Cholesterol, Calc 54 HDL Cholesterol 59 Urine Color Urine Appearance Urine pH Ur Specific Carefree Urine Protein Urine Glucose (UA) Urine Ketones Urine Blood Urine Nitrite Ur Leukocyte Esterase Urine RBC Urine WBC Ur Squamous Epith Cells Urine Bacteria Hyaline Casts COVID-19 ([facility]) Negative COVID-19 Clin Com See Note 11/04/21 11/04/21 11/06/21 18:25 18:25 16:05 Sodium 142 Potassium 4.1 Chloride 104 Carbon Dioxide 26 Anion Gap 16 BUN 38 H D Creatinine 1.07 Estim Creat Clear Calc 28.1 Estimated GFR 49 Random Glucose 140 H Fasting Glucose Calcium 9.5 Total Bilirubin AST ALT Alkaline Phosphatase B-Natriuretic Peptide 681 H Total Protein Albumin Triglycerides Cholesterol LDL Cholesterol, Calc HDL Cholesterol Urine Color Yellow Urine Appearance Clear Urine pH 6.5 Ur Specific Carefree 1.015 Urine Protein Negative Urine Glucose (UA) Negative Urine Ketones Negative Urine Blood Negative Urine Nitrite Negative Ur Leukocyte Esterase Small (1+) H Urine RBC 0-2 Urine WBC 6-10 H Ur Squamous Epith Cells 0-2 Urine Bacteria None Seen Hyaline Casts 0-2 COVID-19 ([facility]) COVID-19 Clin Com 11/07/21 08:09 Sodium 142 Potassium 4.0 Chloride 105 Carbon Dioxide 25 Anion Gap 16 BUN 19 H Creatinine 0.72 Estim Creat Clear Calc 41.7 Estimated GFR > 60 Random Glucose 96 Fasting Glucose Calcium 9.2 Total Bilirubin AST ALT Alkaline Phosphatase B-Natriuretic Peptide Total Protein Albumin Triglycerides Cholesterol LDL Cholesterol, Calc HDL Cholesterol Urine Color Urine Appearance Urine pH Ur Specific Carefree Urine Protein Urine Glucose (UA) Urine Ketones Urine Blood Urine Nitrite Ur Leukocyte Esterase Urine RBC Urine WBC Ur Squamous Epith Cells Urine Bacteria Hyaline Casts COVID-19 ([facility]) COVID-19 Clin Com Airway Mallampati Class: II (Nothing loose) TM Dist: >3cm Neck ROM: Full Heart: rrr Lungs: cta Assessment and Plan Assessment Anesthesia Assessment: Anesthesia Plan Discussed and Chart Reviewed Final Anesthetic Review Family History of Problems with Anesthesia: No History of Problems with Anesthesia: No NPO: Yes ASA Class: III Final Preanesthetic Review: No Changes in Pt Med Stat, Meds/Allgs Chart Reviewed and Consent Obtained/Reviewed Patient Risk: Intermediate Procedure Risk: Intermediate Anesthetic Plan Anesthetic Plan: GA Disposition: Standard PACU
--- NOTE | 2021-11-13 07:03 | MHC.SHP ---
Pre-Procedural Eval Section A Date of Service: 11/13/21 The patient is an INPATIENT: Yes Changes since office visit: No Cold of Flu in the past 2 weeks, No New Medical Problems, No Changes in Medication and No Patient answered all questions The History & Physical has been completed within 30 days and I have reviewed it.: Yes Section B Chief Complaint: Depression Allergies: Allergies Allergy/AdvReac Type Severity Reaction Status Date / Time morphine AdvReac Severe Alternate Verified 09/27/21 10:25 mental status Plan I have reviewed the history and physical and performed a pertinent physical examination on my patient. No changes have occurred unless specified.
--- NOTE | 2021-11-13 07:15 | HO.ECTPROC ---
ECT Procedure Note Diagnosis/Treatment Date of Service: 11/13/21 Diagnosis: Major Depressive Disorder Previous ECT Date: 11/10/21 Current Treatment Number: 6 Treatment: Series Interval Clinical Notes: The patient was smiling and cooperative, very chatty, no evidence of dysphoria at this moment. ECT Settings Device: THYMATRON DGx Electrode Placement: Right Unilateral Program/Pulse Width: 0.25 Energy Percent: 100 Seizure Duration By EEG (in seconds): 37 By Motor Observation (in seconds): 25 Medications Administration General Anesthetic: Etomidate (60) Muscle Relaxant: Succinylcholine (80) Ancillary Medications Analgesics: Torodol - Pre ECT Anti-emetics: Zofran - Pre ECT Miscillaneous Medications: Propofol Airway Management Airway Management: Bag Mask Ventilation Treatment Recommendations No Changes Recommended: No change Pt Tolerated Procedure w/o Issue: Yes
[2021-11-13] MEDS: OLANZapine 2.5 MG TABLET PO ×2 (08:37→20:21)
[2021-11-13] MEDS: Furosemide 20 MG TABLET PO (08:38)
[2021-11-13] MEDS: Calcium + Vitamin D 250 MG TABLET 500 MG PO (08:38)
[2021-11-13] MEDS: Apixaban 2.5 MG TABLET PO ×2 (08:38→20:21)
[2021-11-13] MEDS: amLODIPine Besylate 10 MG TABLET PO (08:38)
[2021-11-13] MEDS: DULoxetine HCl 30 MG CAPSULE.DR PO ×2 (08:39→20:21)
[2021-11-13] MEDS: Sulfamethox/Trimeth 800/160 TABLET 1 TAB PO ×2 (10:47→20:22)
--- NOTE | 2021-11-13 15:33 | HO.PSYCHPN ---
Subjective Subjective Date of Service: 11/13/21 Reason For Visit: Depression Subjective Notes: Conditional Voluntary Interim History: the patient's mood has improved remarkably after ECT. Today we had the procedure and she was awake, alert, pleasant, smiling and even joking. After the procedure she was able to have her breakfast and she was active in the unit. On interview she denies new symptoms she feels much better and she was thinking of discharge. Mental Status Exam Mental Status Exam Patient Appearance: Well Grooomed Patient Orientation: Person and Situation Level of Consciousness: Awake Patient Behavior: Cooperative Mood Description: Calm Affect Description: Constricted Patient Cognition Impaired: Yes Ability to Follow Directions: Good Speech Pattern: Clear Hallucinations: None Delusions: Not Present Thought Process: Linear Thought Content: positive for Circumstantial Judgement: Fair Diagnostics Vital Signs (24Hr): Vital Signs - 24 hr 11/12/21 20:54 11/13/21 06:15 11/13/21 06:44 Temperature 97.8 F 98.2 F 97.6 F Pulse Rate 109 H 86 93 Respiratory Rate 16 16 16 Blood Pressure 118/73 123/60 115/73 Pulse Oximetry 97 100 96 Oxygen Delivery Method Room Air Room Air Room Air Oxygen Flow Rate 11/13/21 07:20 11/13/21 07:25 11/13/21 07:30 Temperature 97.6 F Pulse Rate 92 69 75 Respiratory Rate 12 17 17 Blood Pressure 155/93 H 124/65 112/61 Pulse Oximetry 100 98 98 Oxygen Delivery Method Nasal Cannula Nasal Cannula Nasal Cannula Oxygen Flow Rate 2 2 2 11/13/21 07:35 11/13/21 07:50 11/13/21 08:05 Temperature 97.4 F Pulse Rate 78 64 70 Respiratory Rate 16 16 18 Blood Pressure 101/58 L 134/72 120/63 Pulse Oximetry 99 99 97 Oxygen Delivery Method Nasal Cannula Nasal Cannula Room Air Oxygen Flow Rate 2 2 11/13/21 08:36 11/13/21 08:37 Temperature 96.6 F L 96.6 F L Pulse Rate 73 73 Respiratory Rate 17 17 Blood Pressure 124/78 124/78 Pulse Oximetry 95 95 Oxygen Delivery Method Room Air Oxygen Flow Rate BMI result Body Mass Index 17.9 Labs Results: 11/07/21 08:09 Imaging Radiology Impressions: ITS Impressions Venous Duplex 11/05/21 14:21 IMPRESSION: No DVT demonstrated in the left lower extremity. Medications Medications Current Medications Acetaminophen (Acetaminophen 325 Mg Tablet) 650 mg PO Q6H PRN PRN Reason: Pain, Mild (Pain Scale 1-3) Last Admin: 10/31/21 20:20 Dose: 650 mg Acetaminophen (Acetaminophen 325 Mg Tablet) 650 mg PO ONCE PRN PRN Reason: Pain, Mild (Pain Scale 1-3) Al Hydroxide/Mg Hydroxide (Magnesium Hydrox/Alum Hydrox 30 Ml Oral.Susp) 30 ml PO Q6H PRN PRN Reason: Heartburn/Nausea Amlodipine Besylate (Amlodipine Besylate 10 Mg Tablet) 10 mg PO DAILY [facility]; Protocol Last Admin: 11/13/21 08:38 Dose: 10 mg Apixaban (Apixaban 2.5 Mg Tablet) 2.5 mg PO BID [facility] Last Admin: 11/13/21 08:38 Dose: 2.5 mg Atorvastatin Calcium (Atorvastatin Calcium 40 Mg Tablet) 40 mg PO BEDTIME [facility] Last Admin: 11/12/21 19:51 Dose: 40 mg Calcium Carbonate/Cholecalciferol (Calcium + Vitamin D 250 Mg Tablet) 500 mg PO DAILY [facility] Last Admin: 11/13/21 08:38 Dose: 500 mg Digoxin (Digoxin 0.125 Mg Tablet) 0.125 mg PO TuWeThFr@0900 [facility] Last Admin: 11/10/21 15:38 Dose: Not Given Duloxetine HCl (Duloxetine Hcl 30 Mg Capsule.Dr) 30 mg PO BID [facility] Last Admin: 11/13/21 08:39 Dose: 30 mg Fluoxetine HCl (Fluoxetine Hcl Oral Solution 20 Mg/5 Ml Solution) 10 mg PO DAILY PRN PRN Reason: if pt refuses duloxetine Furosemide (Furosemide 20 Mg Tablet) 20 mg PO DAILY [facility]; Protocol Last Admin: 11/13/21 08:38 Dose: 20 mg Hydroxyzine HCl (Hydroxyzine Hcl 25 Mg Tablet) 25 mg PO Q6H PRN PRN Reason: Anxiety Last Admin: 11/07/21 20:32 Dose: 25 mg Magnesium Hydroxide (Milk Of Magnesia 30 Ml Oral.Susp) 30 ml PO DAILY PRN PRN Reason: Constipation Metoprolol Tartrate (Metoprolol Tartrate 100 Mg Tablet) 100 mg PO BID [facility]; Protocol Last Admin: 11/13/21 06:17 Dose: 100 mg Mirtazapine (Mirtazapine 15 Mg Tablet) 15 mg PO BEDTIME [facility] Last Admin: 11/12/21 19:51 Dose: 15 mg Olanzapine (Olanzapine 2.5 Mg Tablet) 2.5 mg PO Q4H PRN PRN Reason: Psychosis Last Admin: 10/31/21 04:27 Dose: 2.5 mg Olanzapine (Olanzapine 2.5 Mg Tablet) 2.5 mg PO BID [facility] Last Admin: 11/13/21 08:37 Dose: 2.5 mg Ondansetron HCl (Ondansetron Hcl 4 Mg/2 Ml Vial) 4 mg IVPUSH ONCE PRN PRN Reason: Nausea and Vomiting Ondansetron HCl (Ondansetron Odt 4 Mg Tab.Rapdis) 4 mg TRANSLINGU Q6H PRN PRN Reason: Nausea Last Admin: 11/09/21 17:54 Dose: 4 mg Oxycodone HCl (Oxycodone Hcl Immed Release 5 Mg Tablet) 5 mg PO ONCE PRN PRN Reason: Pain, Severe (Pain Scale 7-10) Trazodone HCl (Trazodone Hcl 50 Mg Tablet) 50 mg PO BEDTIME PRN PRN Reason: Insomnia Last Admin: 11/11/21 21:08 Dose: 50 mg Trimethoprim/Sulfamethoxazole (Sulfamethox/Trimeth 800/160 Tablet) 1 tab PO Q12H [facility] Last Admin: 11/13/21 10:47 Dose: 1 tab Allergies Allergies Allergy/AdvReac Type Severity Reaction Status Date / Time morphine AdvReac Severe Alternate Verified 09/27/21 10:25 mental status Assessment & Plan Assessment & Plan (1) Major depressive disorder, recurrent severe without psychotic features: Status: Acute Code(s): F33.2 - Major depressive disorder, recurrent severe without psychotic features Assessment and Plan: Continue Cymbalta dose lowered with renal insufficiency check labs in a.m. discussion healthcare proxy Check labs in a.m. consider ECT try and differentiate cognitive issues versus depression difficult to tease out Plan: ECT mwf 11/11 continue tx plan (2) HTN (hypertension): Status: Acute Code(s): I10 - Essential (primary) hypertension (3) Atrial fibrillation with rapid ventricular response: Status: Acute Code(s): I48.91 - Unspecified atrial fibrillation Assessment and Plan: Continue metoprolol monitor rate Plan Patient severely depressed and withdrawn some intake noted but significantly decreased. Some periods of elevated mood states and talking about prostitutes somewhat pressured has been intermittently observed per but generally severely depressed withdrawn poor concentration attention hopeless helpless generally not very forthcoming guarded depressed sad sh of her and daughter Plan: 1. Continue same treatment. 2. Continue ECT. 3. Start Bactrim b.i.d. for UTI. 4. ECT Today 11/12 continue current plan. I spent ___20___ minutes with the patient and/or on the patient floor today, greater than?50% of which was spent counseling/coordinating care. Reason for contiued inpatient stay Substantial Risk for: inability to function, rapid decompensation and med/psych decompensation
[2021-11-13] MEDS: Atorvastatin Calcium 40 MG TABLET PO (20:21)
[2021-11-13] MEDS: Mirtazapine 15 MG TABLET PO (20:21)
[2021-11-14 07:45] VITALS: BP 103/57; PULSE 60; RESP 16; TEMP 36.3; O2SAT 95
[2021-11-14 07:52] VITALS: PULSE 92
[2021-11-14] MEDS: OLANZapine 2.5 MG TABLET PO ×3 (07:55→20:39)
[2021-11-14] MEDS: amLODIPine Besylate 10 MG TABLET PO (07:56)
[2021-11-14] MEDS: Digoxin 0.125 MG TABLET PO (07:56)
[2021-11-14] MEDS: Calcium + Vitamin D 250 MG TABLET 500 MG PO (07:56)
[2021-11-14] MEDS: Apixaban 2.5 MG TABLET PO ×3 (07:57→20:39)
[2021-11-14] MEDS: Metoprolol Tartrate 100 MG TABLET PO ×2 (07:57→20:37)
[2021-11-14] MEDS: Furosemide 20 MG TABLET PO (07:57)
[2021-11-14] MEDS: DULoxetine HCl 30 MG CAPSULE.DR PO ×2 (07:57→20:38)
[2021-11-14] MEDS: Sulfamethox/Trimeth 800/160 TABLET 1 TAB PO ×2 (10:14→20:38)
--- NOTE | 2021-11-14 12:58 | HO.PSYCHPN ---
Subjective Subjective Date of Service: 11/14/21 Reason For Visit: Depression Subjective Notes: Conditional Voluntary Interim History: The nursing staff reported the patient has shown high energy, no evidence of dysphoria. On interview the patient feels very well and she is talking about discharge planning. Still with dementia but easily redirectable. Mental Status Exam Mental Status Exam Patient Appearance: Well Grooomed Patient Orientation: Person, Place and Situation Level of Consciousness: Awake Patient Behavior: Cooperative Mood Description: Calm Affect Description: Calm Patient Cognition Impaired: Yes Ability to Follow Directions: Good Speech Pattern: Clear Hallucinations: None Delusions: Not Present Thought Process: Linear Thought Content: positive for Goal Oriented Judgement: Fair Diagnostics Vital Signs (24Hr): Vital Signs - 24 hr 11/13/21 20:54 11/14/21 07:52 11/14/21 07:45 Temperature 98.1 F 97.4 F Pulse Rate 98 92 60 Respiratory Rate 16 Blood Pressure 116/72 103/57 L Pulse Oximetry 95 95 Oxygen Delivery Method Room Air Room Air BMI result Body Mass Index 17.9 Labs Results: 11/07/21 08:09 Imaging Radiology Impressions: ITS Impressions Venous Duplex 11/05/21 14:21 IMPRESSION: No DVT demonstrated in the left lower extremity. Medications Medications Current Medications Acetaminophen (Acetaminophen 325 Mg Tablet) 650 mg PO Q6H PRN PRN Reason: Pain, Mild (Pain Scale 1-3) Last Admin: 10/31/21 20:20 Dose: 650 mg Acetaminophen (Acetaminophen 325 Mg Tablet) 650 mg PO ONCE PRN PRN Reason: Pain, Mild (Pain Scale 1-3) Al Hydroxide/Mg Hydroxide (Magnesium Hydrox/Alum Hydrox 30 Ml Oral.Susp) 30 ml PO Q6H PRN PRN Reason: Heartburn/Nausea Amlodipine Besylate (Amlodipine Besylate 10 Mg Tablet) 10 mg PO DAILY COUNTS [facility]CLUDE 234 BEDS AT THE [facility]; Protocol Last Admin: 11/14/21 07:56 Dose: 10 mg Apixaban (Apixaban 2.5 Mg Tablet) 2.5 mg PO BID COUNTS INCLUDE 234 BEDS AT THE [facility] Last Admin: 11/14/21 07:57 Dose: 2.5 mg Atorvastatin Calcium (Atorvastatin Calcium 40 Mg Tablet) 40 mg PO BEDTIME COUNTS INCLUDE 234 BEDS AT THE [facility] Last Admin: 11/13/21 20:21 Dose: 40 mg Calcium Carbonate/Cholecalciferol (Calcium + Vitamin D 250 Mg Tablet) 500 mg PO DAILY COUNTS INCLUDE 234 BEDS AT THE [facility] Last Admin: 11/14/21 07:56 Dose: 500 mg Digoxin (Digoxin 0.125 Mg Tablet) 0.125 mg PO TuWeThFr@0900 COUNTS INCLUDE 234 BEDS AT THE [facility] Last Admin: 11/14/21 07:56 Dose: 0.125 mg Duloxetine HCl (Duloxetine Hcl 30 Mg Capsule.Dr) 30 mg PO BID COUNTS INCLUDE 234 BEDS AT THE [facility] Last Admin: 11/14/21 07:57 Dose: 30 mg Fluoxetine HCl (Fluoxetine Hcl Oral Solution 20 Mg/5 Ml Solution) 10 mg PO DAILY PRN PRN Reason: if pt refuses duloxetine Furosemide (Furosemide 20 Mg Tablet) 20 mg PO DAILY COUNTS INCLUDE 234 BEDS AT THE [facility]; Protocol Last Admin: 11/14/21 07:57 Dose: 20 mg Hydroxyzine HCl (Hydroxyzine Hcl 25 Mg Tablet) 25 mg PO Q6H PRN PRN Reason: Anxiety Last Admin: 11/07/21 20:32 Dose: 25 mg Magnesium Hydroxide (Milk Of Magnesia 30 Ml Oral.Susp) 30 ml PO DAILY PRN PRN Reason: Constipation Metoprolol Tartrate (Metoprolol Tartrate 100 Mg Tablet) 100 mg PO BID COUNTS INCLUDE 234 BEDS AT THE [facility]; Protocol Last Admin: 11/14/21 07:57 Dose: 100 mg Mirtazapine (Mirtazapine 15 Mg Tablet) 15 mg PO BEDTIME COUNTS INCLUDE 234 BEDS AT THE [facility] Last Admin: 11/13/21 20:21 Dose: 15 mg Olanzapine (Olanzapine 2.5 Mg Tablet) 2.5 mg PO Q4H PRN PRN Reason: Psychosis Last Admin: 10/31/21 04:27 Dose: 2.5 mg Olanzapine (Olanzapine 2.5 Mg Tablet) 2.5 mg PO BID COUNTS INCLUDE 234 BEDS AT THE [facility] Last Admin: 11/14/21 07:55 Dose: 2.5 mg Ondansetron HCl (Ondansetron Hcl 4 Mg/2 Ml Vial) 4 mg IVPUSH ONCE PRN PRN Reason: Nausea and Vomiting Ondansetron HCl (Ondansetron Odt 4 Mg Tab.Rapdis) 4 mg TRANSLINGU Q6H PRN PRN Reason: Nausea Last Admin: 11/09/21 17:54 Dose: 4 mg Oxycodone HCl (Oxycodone Hcl Immed Release 5 Mg Tablet) 5 mg PO ONCE PRN PRN Reason: Pain, Severe (Pain Scale 7-10) Trazodone HCl (Trazodone Hcl 50 Mg Tablet) 50 mg PO BEDTIME PRN PRN Reason: Insomnia Last Admin: 11/11/21 21:08 Dose: 50 mg Trimethoprim/Sulfamethoxazole (Sulfamethox/Trimeth 800/160 Tablet) 1 tab PO Q12H [facility] Last Admin: 11/14/21 10:14 Dose: 1 tab Allergies Allergies Allergy/AdvReac Type Severity Reaction Status Date / Time morphine AdvReac Severe Alternate Verified 09/27/21 10:25 mental status Assessment & Plan Assessment & Plan (1) Major depressive disorder, recurrent severe without psychotic features: Status: Acute Code(s): F33.2 - Major depressive disorder, recurrent severe without psychotic features Assessment and Plan: Continue Cymbalta dose lowered with renal insufficiency check labs in a.m. discussion healthcare proxy Check labs in a.m. consider ECT try and differentiate cognitive issues versus depression difficult to tease out Plan: ECT mwf (2) HTN (hypertension): Status: Acute Code(s): I10 - Essential (primary) hypertension (3) Atrial fibrillation with rapid ventricular response: Status: Acute Code(s): I48.91 - Unspecified atrial fibrillation Assessment and Plan: Continue metoprolol monitor rate Plan Patient severely depressed and withdrawn some intake noted but significantly decreased. Some periods of elevated mood states and talking about prostitutes somewhat pressured has been intermittently observed per but generally severely depressed withdrawn poor concentration attention hopeless helpless generally not very forthcoming guarded depressed sad sh of her and daughter Plan: 1. Continue same treatment. 2. Continue ECT. 3. Start Bactrim b.i.d. for UTI. 4. ECT 3 times per week . I spent __20____ minutes with the patient and/or on the patient floor today, greater than?50% of which was spent counseling/coordinating care. Reason for contiued inpatient stay Substantial Risk for: inability to function, rapid decompensation and med/psych decompensation
[2021-11-14] MEDS: Atorvastatin Calcium 40 MG TABLET PO (20:37)
[2021-11-14] MEDS: Mirtazapine 15 MG TABLET PO (20:38)
[2021-11-14 23:45] VITALS: BP 107/57; PULSE 75; RESP 17; TEMP 36.3; O2SAT 93
[2021-11-15] VITALS (14 sets, daily range): BP systolic 97–183; BP diastolic 55–95; PULSE 67–98; RESP 14–18; TEMP 36.1–36.4; O2SAT 93–97
--- NOTE | 2021-11-15 00:59 | PC.NURSE ---
Found patient in a sitting position on the floor near her bed w/ a small skin tear on the R. elbow slightly bleeding, cleansed w/ NS and covered w/ a bandaid. Pt. is alert and oriented x4.Able to move all extremities w/o pain.W/ an old bruise to her R.hand and L. AC. PERRLA.Patient said, I slide on the floor and landed on my butt and I did not hit my head . Patient has no c/o pain,N/V, headache or dizziness.VS taken and recorded. Engineering Teacher,Felicity Brantley,Otilia Cornelius and Feliberto Joe-Pt's son inform of the incident.
[2021-11-15] MEDS: Metoprolol Tartrate 100 MG TABLET PO ×2 (06:02→21:33)
[2021-11-15] MEDS: amLODIPine Besylate 10 MG TABLET PO (06:02)
--- NOTE | 2021-11-15 08:02 | MHC.SHP ---
Pre-Procedural Eval Section A Date of Service: 11/15/21 The patient is an INPATIENT: Yes Changes since office visit: Yes New Medical Problems and Yes Changes in Medication; No Cold of Flu in the past 2 weeks and No Patient answered all questions The History & Physical has been completed within 30 days and I have reviewed it.: Yes Section B Chief Complaint: Depression Allergies: Allergies Allergy/AdvReac Type Severity Reaction Status Date / Time morphine AdvReac Severe Alternate Verified 09/27/21 10:25 mental status Plan I have reviewed the history and physical and performed a pertinent physical examination on my patient. No changes have occurred unless specified.
--- NOTE | 2021-11-15 08:02 | HO.ECTPROC ---
ECT Procedure Note Diagnosis/Treatment Date of Service: 11/15/21 Diagnosis: Major Depressive Disorder Previous ECT Date: 11/13/21 Current Treatment Number: 7 Treatment: Series Interval Clinical Notes: The patient was smiling and cooperative, very chatty,doingt much better no complaints when seen much improved ECT Settings Device: THYMATRON DGx Electrode Placement: Right Unilateral Program/Pulse Width: 0.25 Energy Percent: 100 Seizure Duration By EEG (in seconds): 33 Medications Administration General Anesthetic: Etomidate (60) Muscle Relaxant: Succinylcholine (80) Ancillary Medications Anti-emetics: Zofran - Pre ECT Miscillaneous Medications: Propofol Airway Management Airway Management: Bag Mask Ventilation Treatment Recommendations No Changes Recommended: No change Notes: tolerated cardiovascularly Pt Tolerated Procedure w/o Issue: Yes
--- NOTE | 2021-11-15 08:31 | P.CONAN_ITS ---
HPI - Anesthesia Eval Consult details Narrative: 81yo female patient for ECT PMFSH Active Problems Active Problems: All Active Problems (Updated 11/04/21 @ 19:28 by BEATRIS Willson) Edema of left lower extremity (Acute) Major depressive disorder, recurrent severe without psychotic features (Acute) Atrial fibrillation with rapid ventricular response (Acute) Major depressive disorder (Acute) Delusion (Acute) Dementia (Acute) Compression fracture of T9 vertebra (Acute) E coli bacteremia (Acute) Ocular melanoma (Acute) Delusions (Acute) Bacteriuria (Acute) Depression (Acute) NATE (acute kidney injury) (Acute) Diarrhea (Acute) Uncontrolled hypertension (Acute) Acute diastolic heart failure (Acute) Pleural effusion (Acute) Pleural effusion (Acute) Hemopneumothorax (Acute) Fall (Acute) Fracture, rib (Acute ~02/2020) Atrial fibrillation with rapid ventricular response (Acute) HTN (hypertension) (Acute) Past Medical History Medical History Anxiety Atrial fibrillation with controlled ventricular rate Dementia Depression Diastolic heart failure GERD (gastroesophageal reflux disease) History of rib fracture HTN (hypertension) Major depressive disorder, 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 Father No problems noted. Family history of problems with anesthesia: No Surgical History Surgical History No pertinent past surgical history History of Problems with Anesthesia: No Social History Social History Household Members: Family Household Members Other:: Son, Akil Joe Housing: House Housing Other:: [facility] Do you presently have visiting nurse or other home services: Yes ([facility]NA services) Unable to assess alcohol history related to: Unable to respond Alcohol intake: never Patient Tobacco Use Status: Never used Tobacco Second Hand Smoke Exposure: No Use of substances other than those prescribed or required for medical reasons: No Currently Displaying Signs/Symptoms of Drug Intoxication Withdrawal: No Have you been hit, kicked, punched, or otherwise hurt by someone within the past year? If so, by whom?: No Do you feel safe in your current relationship?: No Current Relationship Is there a partner from a previous relationship who is making you feel unsafe now?: No Are you DNR?: Yes Advance Directives: Yes Advance Directives Information Provided: Yes (INDU) Advance Directives on File: Yes Advance Directives Date on File: 04/19/21 Do you have thoughts of harming others: None Do you have a plan to hurt others: No Plan Recently lost weight without trying: Yes How much weight loss: 24-33 pounds Eating poorly because of decreased appetite: Yes Nutrition screen score: 6 Nutrition Risks: Poor intake 0-25% >4 days Patient : No : No Poor oral hygiene: No service: No Current occupational status: retired Sexual orientation: Straight/Heterosexual Meds Allergies Allergy/AdvReac Type Severity Reaction Status Date / Time morphine AdvReac Severe Alternate Verified 09/27/21 10:25 mental status Active Medications: Current Medications Acetaminophen (Acetaminophen 325 Mg Tablet) 650 mg PO Q6H PRN PRN Reason: Pain, Mild (Pain Scale 1-3) Last Admin: 10/31/21 20:20 Dose: 650 mg Acetaminophen (Acetaminophen 325 Mg Tablet) 650 mg PO ONCE PRN PRN Reason: Pain, Mild (Pain Scale 1-3) Al Hydroxide/Mg Hydroxide (Magnesium Hydrox/Alum Hydrox 30 Ml Oral.Susp) 30 ml PO Q6H PRN PRN Reason: Heartburn/Nausea Amlodipine Besylate (Amlodipine Besylate 10 Mg Tablet) 10 mg PO DAILY [facility]; Protocol Last Admin: 11/15/21 06:02 Dose: 10 mg Apixaban (Apixaban 2.5 Mg Tablet) 2.5 mg PO BID [facility] Last Admin: 11/14/21 20:39 Dose: 2.5 mg Atorvastatin Calcium (Atorvastatin Calcium 40 Mg Tablet) 40 mg PO BEDTIME [facility] Last Admin: 11/14/21 20:37 Dose: 40 mg Calcium Carbonate/Cholecalciferol (Calcium + Vitamin D 250 Mg Tablet) 500 mg PO DAILY [facility] Last Admin: 11/14/21 07:56 Dose: 500 mg Digoxin (Digoxin 0.125 Mg Tablet) 0.125 mg PO TuWeThFr@0900 [facility] Last Admin: 11/14/21 07:56 Dose: 0.125 mg Duloxetine HCl (Duloxetine Hcl 30 Mg Capsule.Dr) 30 mg PO BID [facility] Last Admin: 11/14/21 20:38 Dose: 30 mg Fluoxetine HCl (Fluoxetine Hcl Oral Solution 20 Mg/5 Ml Solution) 10 mg PO DAILY PRN PRN Reason: if pt refuses duloxetine Furosemide (Furosemide 20 Mg Tablet) 20 mg PO DAILY [facility]; Protocol Last Admin: 11/14/21 07:57 Dose: 20 mg Hydroxyzine HCl (Hydroxyzine Hcl 25 Mg Tablet) 25 mg PO Q6H PRN PRN Reason: Anxiety Last Admin: 11/07/21 20:32 Dose: 25 mg Magnesium Hydroxide (Milk Of Magnesia 30 Ml Oral.Susp) 30 ml PO DAILY PRN PRN Reason: Constipation Metoprolol Tartrate (Metoprolol Tartrate 100 Mg Tablet) 100 mg PO BID [facility]; Protocol Last Admin: 11/15/21 06:02 Dose: 100 mg Mirtazapine (Mirtazapine 15 Mg Tablet) 15 mg PO BEDTIME [facility] Last Admin: 11/14/21 20:38 Dose: 15 mg Olanzapine (Olanzapine 2.5 Mg Tablet) 2.5 mg PO Q4H PRN PRN Reason: Psychosis Last Admin: 10/31/21 04:27 Dose: 2.5 mg Olanzapine (Olanzapine 2.5 Mg Tablet) 2.5 mg PO BID [facility] Last Admin: 11/14/21 20:39 Dose: 2.5 mg Ondansetron HCl (Ondansetron Hcl 4 Mg/2 Ml Vial) 4 mg IVPUSH ONCE PRN PRN Reason: Nausea and Vomiting Ondansetron HCl (Ondansetron Odt 4 Mg Tab.Rapdis) 4 mg TRANSLINGU Q6H PRN PRN Reason: Nausea Last Admin: 11/09/21 17:54 Dose: 4 mg Oxycodone HCl (Oxycodone Hcl Immed Release 5 Mg Tablet) 5 mg PO ONCE PRN PRN Reason: Pain, Severe (Pain Scale 7-10) Trazodone HCl (Trazodone Hcl 50 Mg Tablet) 50 mg PO BEDTIME PRN PRN Reason: Insomnia Last Admin: 11/11/21 21:08 Dose: 50 mg Trimethoprim/Sulfamethoxazole (Sulfamethox/Trimeth 800/160 Tablet) 1 tab PO Q12H [facility] Last Admin: 11/14/21 20:38 Dose: 1 tab Home Medications Medication Instructions Recorded Confirmed Last Taken Type amlodipine 10 mg tablet 10 mg PO DAILY 03/16/20 10/22/21 10/22/21 History 10 mg calcium carbonate 600 mg-vitamin 1 tab PO DAILY 09/07/20 10/22/21 10/22/21 History D3 20 mcg (800 unit) tablet 1 tab (Caltrate with Vitamin D3) mirtazapine 15 mg tablet 15 mg PO BEDTIME 06/06/21 10/22/21 10/21/21 History 15 mg Exam Exam Date and Time: November 15, 2021 0831 Height,Weight and Vital Signs: Height 5 ft Weight 41.7 kg Last Vital Signs Temp 97.3 F 11/15/21 06:45 Pulse 88 11/15/21 06:45 Resp 16 11/15/21 06:45 BP 132/60 11/15/21 06:45 Pulse Ox 93 11/15/21 05:38 O2 Del Method 11/15/21 05:38 O2 Flow Rate 2 11/13/21 07:50 Pertinent Lab Results Pertinent Lab Results: Laboratory Tests 10/22/21 10/23/21 10/25/21 15:10 07:50 09:45 Sodium 142 140 Potassium 4.1 4.2 Chloride 107 104 Carbon Dioxide 27 27 Anion Gap 12 13 BUN 19 H 17 H Creatinine 0.83 0.77 Estim Creat Clear Calc 35.3 37.4 Estimated GFR > 60 > 60 Random Glucose Fasting Glucose 97 101 H Calcium 9.0 9.2 Total Bilirubin 0.5 0.5 AST 23 23 ALT 44 H 44 H Alkaline Phosphatase 55 62 B-Natriuretic Peptide Total Protein 5.5 L 5.9 L Albumin 3.3 L 3.4 L Triglycerides 51 Cholesterol 123 LDL Cholesterol, Calc 54 HDL Cholesterol 59 Urine Color Urine Appearance Urine pH Ur Specific [place] Urine Protein Urine Glucose (UA) Urine Ketones Urine Blood Urine Nitrite Ur Leukocyte Esterase Urine RBC Urine WBC Ur Squamous Epith Cells Urine Bacteria Hyaline Casts COVID-19 ([facility]) Negative COVID-19 Clin Com See Note 11/04/21 11/04/21 11/06/21 18:25 18:25 16:05 Sodium 142 Potassium 4.1 Chloride 104 Carbon Dioxide 26 Anion Gap 16 BUN 38 H D Creatinine 1.07 Estim Creat Clear Calc 28.1 Estimated GFR 49 Random Glucose 140 H Fasting Glucose Calcium 9.5 Total Bilirubin AST ALT Alkaline Phosphatase B-Natriuretic Peptide 681 H Total Protein Albumin Triglycerides Cholesterol LDL Cholesterol, Calc HDL Cholesterol Urine Color Yellow Urine Appearance Clear Urine pH 6.5 Ur Specific [place] 1.015 Urine Protein Negative Urine Glucose (UA) Negative Urine Ketones Negative Urine Blood Negative Urine Nitrite Negative Ur Leukocyte Esterase Small (1+) H Urine RBC 0-2 Urine WBC 6-10 H Ur Squamous Epith Cells 0-2 Urine Bacteria None Seen Hyaline Casts 0-2 COVID-19 ([facility]) COVID-19 Clin Com 11/07/21 08:09 Sodium 142 Potassium 4.0 Chloride 105 Carbon Dioxide 25 Anion Gap 16 BUN 19 H Creatinine 0.72 Estim Creat Clear Calc 41.7 Estimated GFR > 60 Random Glucose 96 Fasting Glucose Calcium 9.2 Total Bilirubin AST ALT Alkaline Phosphatase B-Natriuretic Peptide Total Protein Albumin Triglycerides Cholesterol LDL Cholesterol, Calc HDL Cholesterol Urine Color Urine Appearance Urine pH Ur Specific [place] Urine Protein Urine Glucose (UA) Urine Ketones Urine Blood Urine Nitrite Ur Leukocyte Esterase Urine RBC Urine WBC Ur Squamous Epith Cells Urine Bacteria Hyaline Casts COVID-19 ([facility]) COVID-19 Clin Com Airway Mallampati Class: II TM Dist: >3cm Neck ROM: Full Loose/Missing/Broken Teeth: Yes (Top front right broken, many missing,?broken) Heart: Irregularly irregular Lungs: CTAB Assessment and Plan Assessment Anesthesia Assessment: Anesthesia Plan Discussed and Chart Reviewed Final Anesthetic Review Family History of Problems with Anesthesia: No History of Problems with Anesthesia: No NPO: Yes (Apple juice with medication about 3 hours ago) ASA Class: III Final Preanesthetic Review: No Changes in Pt Med Stat, Meds/Allgs Chart Reviewed, Consent Obtained/Reviewed and Anes Risks/Benef Reviewed Patient Risk: Intermediate Procedure Risk: Intermediate Assessment/Block/Sedation in SS: Assess/Block/Sedation-SS Anesthetic Plan Anesthetic Plan: GA Disposition: Standard PACU and Inp. Admit - Standard Bed
--- NOTE | 2021-11-15 09:52 | HO.PSYCHPN ---
Subjective Subjective Date of Service: 11/15/21 Reason For Visit: Depression Subjective Notes: Conditional Voluntary Interim History: the patient had a fall last night and she had smiles crop on her right elbow. She was medically workout and no need for follow-up. Today she had an ECT without any problems. On interview the patient reports that she is doing fine her affect is bright and she denies new side effects. We are changing her of survey mancuso level to one-to-one since it will be safe for after ECT Mental Status Exam Mental Status Exam Patient Appearance: Well Grooomed Patient Orientation: Person and Situation Level of Consciousness: Awake Patient Behavior: Cooperative Mood Description: Calm Affect Description: Relaxed Patient Cognition Impaired: Yes Ability to Follow Directions: Good Speech Pattern: Clear Hallucinations: None Delusions: Not Present Thought Process: Intact Thought Content: positive for Circumstantial Judgement: Fair Diagnostics Vital Signs (24Hr): Vital Signs - 24 hr 11/14/21 23:45 11/15/21 05:38 11/15/21 06:45 Temperature 97.4 F 97.3 F 97.3 F Pulse Rate 75 88 88 Respiratory Rate 17 16 16 Blood Pressure 107/57 L 132/60 132/60 Pulse Oximetry 93 93 Oxygen Delivery Method Room Air Room Air Oxygen Flow Rate 11/15/21 09:33 11/15/21 09:38 11/15/21 09:43 Temperature 97.1 F Pulse Rate 98 86 90 Respiratory Rate 18 17 14 Blood Pressure 183/95 H 173/86 H 132/76 Pulse Oximetry 97 96 96 Oxygen Delivery Method Nasal Cannula Nasal Cannula Nasal Cannula Oxygen Flow Rate 2 2 2 11/15/21 09:48 Temperature Pulse Rate 97 Respiratory Rate 16 Blood Pressure 129/94 H Pulse Oximetry 96 Oxygen Delivery Method Nasal Cannula Oxygen Flow Rate 2 BMI result Body Mass Index 17.9 Labs Results: 11/07/21 08:09 Imaging Radiology Impressions: ITS Impressions Venous Duplex 11/05/21 14:21 IMPRESSION: No DVT demonstrated in the left lower extremity. Medications Medications Current Medications Acetaminophen (Acetaminophen 325 Mg Tablet) 650 mg PO Q6H PRN PRN Reason: Pain, Mild (Pain Scale 1-3) Last Admin: 10/31/21 20:20 Dose: 650 mg Acetaminophen (Acetaminophen 325 Mg Tablet) 650 mg PO ONCE PRN PRN Reason: Pain, Mild (Pain Scale 1-3) Al Hydroxide/Mg Hydroxide (Magnesium Hydrox/Alum Hydrox 30 Ml Oral.Susp) 30 ml PO Q6H PRN PRN Reason: Heartburn/Nausea Amlodipine Besylate (Amlodipine Besylate 10 Mg Tablet) 10 mg PO DAILY [facility]; Protocol Last Admin: 11/15/21 06:02 Dose: 10 mg Apixaban (Apixaban 2.5 Mg Tablet) 2.5 mg PO BID [facility] Last Admin: 11/14/21 20:39 Dose: 2.5 mg Atorvastatin Calcium (Atorvastatin Calcium 40 Mg Tablet) 40 mg PO BEDTIME [facility] Last Admin: 11/14/21 20:37 Dose: 40 mg Calcium Carbonate/Cholecalciferol (Calcium + Vitamin D 250 Mg Tablet) 500 mg PO DAILY [facility] Last Admin: 11/14/21 07:56 Dose: 500 mg Digoxin (Digoxin 0.125 Mg Tablet) 0.125 mg PO TuWeThFr@0900 [facility] Last Admin: 11/14/21 07:56 Dose: 0.125 mg Duloxetine HCl (Duloxetine Hcl 30 Mg Capsule.Dr) 30 mg PO BID [facility] Last Admin: 11/14/21 20:38 Dose: 30 mg Fluoxetine HCl (Fluoxetine Hcl Oral Solution 20 Mg/5 Ml Solution) 10 mg PO DAILY PRN PRN Reason: if pt refuses duloxetine Furosemide (Furosemide 20 Mg Tablet) 20 mg PO DAILY [facility]; Protocol Last Admin: 11/14/21 07:57 Dose: 20 mg Hydroxyzine HCl (Hydroxyzine Hcl 25 Mg Tablet) 25 mg PO Q6H PRN PRN Reason: Anxiety Last Admin: 11/07/21 20:32 Dose: 25 mg Lactated Ringer's (Lr) 1,000 mls @ 50 mls/hr IVCONT .Q20H [facility] Magnesium Hydroxide (Milk Of Magnesia 30 Ml Oral.Susp) 30 ml PO DAILY PRN PRN Reason: Constipation Metoprolol Tartrate (Metoprolol Tartrate 100 Mg Tablet) 100 mg PO BID [facility]; Protocol Last Admin: 11/15/21 06:02 Dose: 100 mg Mirtazapine (Mirtazapine 15 Mg Tablet) 15 mg PO BEDTIME [facility] Last Admin: 11/14/21 20:38 Dose: 15 mg Olanzapine (Olanzapine 2.5 Mg Tablet) 2.5 mg PO Q4H PRN PRN Reason: Psychosis Last Admin: 10/31/21 04:27 Dose: 2.5 mg Olanzapine (Olanzapine 2.5 Mg Tablet) 2.5 mg PO BID [facility] Last Admin: 11/14/21 20:39 Dose: 2.5 mg Ondansetron HCl (Ondansetron Hcl 4 Mg/2 Ml Vial) 4 mg IVPUSH ONCE PRN PRN Reason: Nausea and Vomiting Ondansetron HCl (Ondansetron Odt 4 Mg Tab.Rapdis) 4 mg TRANSLINGU Q6H PRN PRN Reason: Nausea Last Admin: 11/09/21 17:54 Dose: 4 mg Ondansetron HCl (Ondansetron Hcl 4 Mg/2 Ml Vial) 4 mg IVPUSH ONCE PRN PRN Reason: Nausea and Vomiting Oxycodone HCl (Oxycodone Hcl Immed Release 5 Mg Tablet) 5 mg PO ONCE PRN PRN Reason: Pain, Severe (Pain Scale 7-10) Trazodone HCl (Trazodone Hcl 50 Mg Tablet) 50 mg PO BEDTIME PRN PRN Reason: Insomnia Last Admin: 11/11/21 21:08 Dose: 50 mg Trimethoprim/Sulfamethoxazole (Sulfamethox/Trimeth 800/160 Tablet) 1 tab PO Q12H [facility] Last Admin: 11/14/21 20:38 Dose: 1 tab Allergies Allergies Allergy/AdvReac Type Severity Reaction Status Date / Time morphine AdvReac Severe Alternate Verified 09/27/21 10:25 mental status Assessment & Plan Assessment & Plan (1) Major depressive disorder, recurrent severe without psychotic features: Status: Acute Code(s): F33.2 - Major depressive disorder, recurrent severe without psychotic features Assessment and Plan: Continue Cymbalta dose lowered with renal insufficiency check labs in a.m. discussion healthcare proxy Check labs in a.m. consider ECT try and differentiate cognitive issues versus depression difficult to tease out Plan: ECT mwf (2) HTN (hypertension): Status: Acute Code(s): I10 - Essential (primary) hypertension (3) Atrial fibrillation with rapid ventricular response: Status: Acute Code(s): I48.91 - Unspecified atrial fibrillation Assessment and Plan: Continue metoprolol monitor rate Plan Patient severely depressed and withdrawn some intake noted but significantly decreased. Some periods of elevated mood states and talking about prostitutes somewhat pressured has been intermittently observed per but generally severely depressed withdrawn poor concentration attention hopeless helpless generally not very forthcoming guarded depressed sad sh of her and daughter Plan: 1. Continue same treatment. 2. Continue ECT. 3. Start Bactrim b.i.d. for UTI. 4. ECT 3 times per week . I spent ___20___ minutes with the patient and/or on the patient floor today, greater than?50% of which was spent counseling/coordinating care. Reason for contiued inpatient stay Substantial Risk for: inability to function, rapid decompensation and med/psych decompensation
[2021-11-15] MEDS: Calcium + Vitamin D 250 MG TABLET 500 MG PO (11:24)
[2021-11-15] MEDS: DULoxetine HCl 30 MG CAPSULE.DR PO ×2 (11:25→21:34)
[2021-11-15] MEDS: Digoxin 0.125 MG TABLET PO (11:25)
[2021-11-15] MEDS: OLANZapine 2.5 MG TABLET PO ×2 (11:26→21:33)
[2021-11-15] MEDS: Furosemide 20 MG TABLET PO (11:26)
[2021-11-15] MEDS: Apixaban 2.5 MG TABLET PO ×2 (11:27→21:34)
[2021-11-15] MEDS: Sulfamethox/Trimeth 800/160 TABLET 1 TAB PO ×2 (11:30→21:33)
--- NOTE | 2021-11-15 17:12 | PC.NURSE ---
Pt denies discomfort related to fall last night. Two pea sized skin tears noted right elbow covered with band-aid, tolerated well. Spoke to daughter this am, who called unit and son who was returning call to unit. Dr Britt notified of fall when pt brought to PACU for ECT. Dr Medina and treatment team notified of fall. 1:1 observation initiated upon pt's return to unit from PACU post ECT.
[2021-11-15] MEDS: traZODone HCL 50 MG TABLET PO (21:33)
[2021-11-15] MEDS: Mirtazapine 15 MG TABLET PO (21:34)
[2021-11-15] MEDS: Atorvastatin Calcium 40 MG TABLET PO (21:34)
--- NOTE | 2021-11-16 | ECG_ITS ---
Test Reason : r/o mi Blood Pressure : / mmHG Vent. Rate : 100 BPM Atrial Rate : 000 BPM P-R Int : 000 ms QRS Dur : 086 ms QT Int : 326 ms P-R-T Axes : 000 -50 131 degrees QTc Int : 420 ms Atrial fibrillation Left axis deviation Anteroseptal infarct (cited on or before 29-MAR-2020) T wave abnormality, consider lateral ischemia Abnormal ECG When compared with ECG of 26-OCT-2021 15:17, Questionable change in initial forces of Septal leads Inverted T waves have replaced nonspecific T wave abnormality in Lateral leads Referred By: Daryl Medina Electronically Signed By:JUSTIN WILCOX
[2021-11-16 08:00] VITALS: BP 102/58; PULSE 98; RESP 18; TEMP 36.6; O2SAT 99
[2021-11-16 09:57] VITALS: BP 100/62; PULSE 98; RESP 18; TEMP 36.6; O2SAT 99
[2021-11-16 13:41] LABS: MANUAL DIFF FLAG NO
[2021-11-16 13:45] LABS: Basophils Absolute Auto 0.1 X10*3/uL (0.0-0.2); Basophils Percent Auto 0.8 % (0-2); Eosinophils Absolute Auto 0.1 X10*3/uL (0.0-0.4); Hematocrit 35.8 % (37.0-47.0); Hemoglobin 11.5 g/dl (12.0-16.0); Imm Gran Abs Auto 0.03 X10*3/uL (0.00-0.03); Imm Gran Pct Auto 0.4 % (0.0-0.4); Lymphocytes Absolute Auto 2.3 X10*3/uL (1.2-4.9); Lymphocytes Percent Auto 28.9 % (20-40); Mean Corpuscular HGB Conc 32.1 g/dl (31.0-35.0); Mean Corpuscular Hemoglobin 30.3 pg (27.0-33.0); Mean Corpuscular Volume 94.2 fL (80.0-98.0); Mean Platelet Volume 10.5 fL (9.4-12.3); Monocytes Absolute Auto 0.3 X10*3/uL (0.1-1.2); Monocytes Percent Auto 4.1 % (2-11); Neutrophils Absolute Auto 5.1 x10*3/uL (2.0-8.3); Neutrophils Percent Auto 64.8 % (45-73); Platelet Count 263 X10*3/uL (160-400); Red Cell Distribution Width 13.8 % (11.0-16.0); White Blood Count 7.8 X10*3/uL (4.8-10.8)
--- NOTE | 2021-11-16 13:47 | HO.PSYCHPN ---
Subjective Subjective Date of Service: 11/16/21 Reason For Visit: Depression Subjective Notes: Conditional Voluntary Interim History: the nursing staff reported the patient was doing very well yesterday, she had been eating most of her meals and he was participating groups. The occupational therapist reported the now that her mood is more stable, the patient has poor safety awareness so we put her on one-to-one for safety to avoid falls. Today in the morning, the patient was on her bed and refused to participate in groups she looked on distress. An order an EKG and it showed atrophy relation, we called Dr. ALEJO and eventually the party plan sales director Dr. Langston came and saw her. She carries a diagnosis of atrophy relation and we ordered blood work. The patient still on no acute distress right now Mental Status Exam Mental Status Exam Patient Appearance: Well Grooomed Patient Orientation: Person and Situation Level of Consciousness: Awake Patient Behavior: Cooperative Mood Description: Calm Affect Description: Constricted Patient Cognition Impaired: Yes Ability to Follow Directions: Good Speech Pattern: Clear Hallucinations: None Delusions: Not Present Thought Process: Linear Thought Content: positive for Foster Judgement: Poor Diagnostics Vital Signs (24Hr): Vital Signs - 24 hr 11/15/21 21:37 11/15/21 22:00 11/16/21 09:57 Temperature 97.6 F 97.9 F Pulse Rate 90 96 98 Respiratory Rate 16 18 Blood Pressure 117/69 120/73 141/65 H Pulse Oximetry 97 99 Oxygen Delivery Method Room Air Room Air BMI result Body Mass Index 17.9 Labs Results: 11/16/21 13:37 11/07/21 08:09 Imaging Radiology Impressions: ITS Impressions Venous Duplex 11/05/21 14:21 IMPRESSION: No DVT demonstrated in the left lower extremity. Medications Medications Current Medications Acetaminophen (Acetaminophen 325 Mg Tablet) 650 mg PO Q6H PRN PRN Reason: Pain, Mild (Pain Scale 1-3) Last Admin: 10/31/21 20:20 Dose: 650 mg Acetaminophen (Acetaminophen 325 Mg Tablet) 650 mg PO ONCE PRN PRN Reason: Pain, Mild (Pain Scale 1-3) Al Hydroxide/Mg Hydroxide (Magnesium Hydrox/Alum Hydrox 30 Ml Oral.Susp) 30 ml PO Q6H PRN PRN Reason: Heartburn/Nausea Amlodipine Besylate (Amlodipine Besylate 10 Mg Tablet) 10 mg PO DAILY [facility]; Protocol Last Admin: 11/16/21 11:46 Dose: Not Given Apixaban (Apixaban 2.5 Mg Tablet) 2.5 mg PO BID [facility] Last Admin: 11/16/21 11:46 Dose: Not Given Atorvastatin Calcium (Atorvastatin Calcium 40 Mg Tablet) 40 mg PO BEDTIME [facility] Last Admin: 11/15/21 21:34 Dose: 40 mg Calcium Carbonate/Cholecalciferol (Calcium + Vitamin D 250 Mg Tablet) 500 mg PO DAILY [facility] Last Admin: 11/16/21 11:46 Dose: Not Given Digoxin (Digoxin 0.125 Mg Tablet) 0.125 mg PO TuWeThFr@0900 [facility] Last Admin: 11/16/21 11:46 Dose: Not Given Duloxetine HCl (Duloxetine Hcl 30 Mg Capsule.Dr) 30 mg PO BID [facility] Last Admin: 11/16/21 11:46 Dose: Not Given Fluoxetine HCl (Fluoxetine Hcl Oral Solution 20 Mg/5 Ml Solution) 10 mg PO DAILY PRN PRN Reason: if pt refuses duloxetine Furosemide (Furosemide 20 Mg Tablet) 20 mg PO DAILY [facility]; Protocol Last Admin: 11/16/21 11:46 Dose: Not Given Hydroxyzine HCl (Hydroxyzine Hcl 25 Mg Tablet) 25 mg PO Q6H PRN PRN Reason: Anxiety Last Admin: 11/07/21 20:32 Dose: 25 mg Magnesium Hydroxide (Milk Of Magnesia 30 Ml Oral.Susp) 30 ml PO DAILY PRN PRN Reason: Constipation Metoprolol Tartrate (Metoprolol Tartrate 100 Mg Tablet) 100 mg PO BID [facility]; Protocol Last Admin: 11/16/21 11:47 Dose: Not Given Mirtazapine (Mirtazapine 15 Mg Tablet) 15 mg PO BEDTIME [facility] Last Admin: 11/15/21 21:34 Dose: 15 mg Olanzapine (Olanzapine 2.5 Mg Tablet) 2.5 mg PO Q4H PRN PRN Reason: Psychosis Last Admin: 10/31/21 04:27 Dose: 2.5 mg Olanzapine (Olanzapine 2.5 Mg Tablet) 2.5 mg PO BID [facility] Last Admin: 11/16/21 11:47 Dose: Not Given Ondansetron HCl (Ondansetron Hcl 4 Mg/2 Ml Vial) 4 mg IVPUSH ONCE PRN PRN Reason: Nausea and Vomiting Ondansetron HCl (Ondansetron Odt 4 Mg Tab.Rapdis) 4 mg TRANSLINGU Q6H PRN PRN Reason: Nausea Last Admin: 11/09/21 17:54 Dose: 4 mg Trazodone HCl (Trazodone Hcl 50 Mg Tablet) 50 mg PO BEDTIME PRN PRN Reason: Insomnia Last Admin: 11/15/21 21:33 Dose: 50 mg Trimethoprim/Sulfamethoxazole (Sulfamethox/Trimeth 800/160 Tablet) 1 tab PO Q12H [facility] Last Admin: 11/16/21 11:47 Dose: Not Given Allergies Allergies Allergy/AdvReac Type Severity Reaction Status Date / Time morphine AdvReac Severe Alternate Verified 09/27/21 10:25 mental status Assessment & Plan Assessment & Plan (1) Major depressive disorder, recurrent severe without psychotic features: Status: Acute Code(s): F33.2 - Major depressive disorder, recurrent severe without psychotic features Assessment and Plan: Continue Cymbalta dose lowered with renal insufficiency check labs in a.m. discussion healthcare proxy Check labs in a.m. consider ECT try and differentiate cognitive issues versus depression difficult to tease out Plan: ECT mwf (2) HTN (hypertension): Status: Acute Code(s): I10 - Essential (primary) hypertension (3) Atrial fibrillation with rapid ventricular response: Status: Acute Code(s): I48.91 - Unspecified atrial fibrillation Assessment and Plan: Continue metoprolol monitor rate Plan Patient severely depressed and withdrawn some intake noted but significantly decreased. Some periods of elevated mood states and talking about prostitutes somewhat pressured has been intermittently observed per but generally severely depressed withdrawn poor concentration attention hopeless helpless generally not very forthcoming guarded depressed sad sh of her and daughter Plan: 1. Continue same treatment. 2. Continue ECT. 3. Start Bactrim b.i.d. for UTI. 4. cancel ECT for tomorrow. 5. Continue with recommendations of Medicine due to atrophy relation . I spent __20____ minutes with the patient and/or on the patient floor today, greater than?50% of which was spent counseling/coordinating care. Reason for contiued inpatient stay Substantial Risk for: inability to function, rapid decompensation and med/psych decompensation
--- NOTE | 2021-11-16 13:59 | P.PNIM_ITS ---
Subjective Subjective Date of Service: 11/16/21 Interval History: Asked to evaluate patient for a. fib initially. D/w attending psychiatrist. Apparently the patient had been doing well with her scheduled ECTs which have been on going during this admission. Dr. Medina reports that ECT have helped the patient significantly. He reports that post ECT the patient is generally slower but by the next day improves towards her baseline. She received her last ECT on 11/15/21. This AM her overall demenaour was quiet different from her baseline. A routine EKG was checked, which showed A. Fib. Consult was requested for further evaluation. The patient is seen and examined in her room. She has a bedside sitter. The patient does not talk much on her own and when prompted with questions, she does not answer them all. Her RN, who is bedside, reports that this is normal for the patient (no answering questions she does not want to like ). She reports not feeling well but is unable to qualify exactly how. She denies cardiac chest pain. She denies palpitations. She denies shortness of breath (states I don't think I am short of breath ). She denies any dizziness or focal neurological def icits. She reports anxiety. Review of Systems negative except HPI Physical Exam Vital Signs: Vital Signs: Last Vital Signs Temp 97.9 F 11/16/21 09:57 Pulse 98 11/16/21 09:57 Resp 18 11/16/21 09:57 BP 141/65 H 11/16/21 09:57 Pulse Ox 99 11/16/21 09:57 O2 Del Method 11/16/21 09:57 O2 Flow Rate 2 11/15/21 10:03 BMI result Body Mass Index 17.9 Const: Other: Constitutional - laying in bed, poor eye contact Eyes - PERRLA, EOMI Cardiovascular - S1S2, RRR, No edema Respiratory - Normal lung expansion, Normal respiratory effort, No respiratory distress, CTA bilaterally Gastrointestinal - NT / ND; +BS; No rebound or guarding - No CVA tenderness Extremities - no calf tenderness bilaterally, no swelling Musculoskeletal - Normal inspection, normal ROM Skin - Warm/Dry Neurological - Oriented to self; moving all 4 limbs upon request, no facial asymmetry noted; strength appears equal and normal in all 4 extremities. CN 2-12 intact b/l. Psychological - poor eye contact Objective Data Active Medications Acetaminophen (Acetaminophen 325 Mg Tablet) 650 mg PO Q6H PRN PRN Reason: Pain, Mild (Pain Scale 1-3) Last Admin: 10/31/21 20:20 Dose: 650 mg Documented By: JONN Acetaminophen (Acetaminophen 325 Mg Tablet) 650 mg PO ONCE PRN PRN Reason: Pain, Mild (Pain Scale 1-3) Al Hydroxide/Mg Hydroxide (Magnesium Hydrox/Alum Hydrox 30 Ml Oral.Susp) 30 ml PO Q6H PRN PRN Reason: Heartburn/Nausea Amlodipine Besylate (Amlodipine Besylate 10 Mg Tablet) 10 mg PO DAILY [facility]; Protocol Last Admin: 11/16/21 11:46 Dose: Not Given Documented By: PEG Non-Admin Reason: Patient Refused Apixaban (Apixaban 2.5 Mg Tablet) 2.5 mg PO BID [facility] Last Admin: 11/16/21 11:46 Dose: Not Given Documented By: PEG Non-Admin Reason: Patient Refused Atorvastatin Calcium (Atorvastatin Calcium 40 Mg Tablet) 40 mg PO BEDTIME [facility] Last Admin: 11/15/21 21:34 Dose: 40 mg Documented By: JORDY Calcium Carbonate/Cholecalciferol (Calcium + Vitamin D 250 Mg Tablet) 500 mg PO DAILY [facility] Last Admin: 11/16/21 11:46 Dose: Not Given Documented By: PEG Non-Admin Reason: Patient Refused Digoxin (Digoxin 0.125 Mg Tablet) 0.125 mg PO TuWeThFr@0900 [facility] Last Admin: 11/16/21 11:46 Dose: Not Given Documented By: PEG Non-Admin Reason: Patient Refused Duloxetine HCl (Duloxetine Hcl 30 Mg Capsule.Dr) 30 mg PO BID [facility] Last Admin: 11/16/21 11:46 Dose: Not Given Documented By: PEG Non-Admin Reason: Patient Refused Fluoxetine HCl (Fluoxetine Hcl Oral Solution 20 Mg/5 Ml Solution) 10 mg PO DAILY PRN PRN Reason: if pt refuses duloxetine Furosemide (Furosemide 20 Mg Tablet) 20 mg PO DAILY [facility]; Protocol Last Admin: 11/16/21 11:46 Dose: Not Given Documented By: PEG Non-Admin Reason: Patient Refused Hydroxyzine HCl (Hydroxyzine Hcl 25 Mg Tablet) 25 mg PO Q6H PRN PRN Reason: Anxiety Last Admin: 11/07/21 20:32 Dose: 25 mg Documented By: GISELE Magnesium Hydroxide (Milk Of Magnesia 30 Ml Oral.Susp) 30 ml PO DAILY PRN PRN Reason: Constipation Metoprolol Tartrate (Metoprolol Tartrate 100 Mg Tablet) 100 mg PO BID [facility]; Protocol Last Admin: 11/16/21 11:47 Dose: Not Given Documented By: PEG Non-Admin Reason: Patient Refused Mirtazapine (Mirtazapine 15 Mg Tablet) 15 mg PO BEDTIME [facility] Last Admin: 11/15/21 21:34 Dose: 15 mg Documented By: JORDY Olanzapine (Olanzapine 2.5 Mg Tablet) 2.5 mg PO Q4H PRN PRN Reason: Psychosis Last Admin: 10/31/21 04:27 Dose: 2.5 mg Documented By: JONN Olanzapine (Olanzapine 2.5 Mg Tablet) 2.5 mg PO BID [facility] Last Admin: 11/16/21 11:47 Dose: Not Given Documented By: PEG Non-Admin Reason: Patient Refused Ondansetron HCl (Ondansetron Hcl 4 Mg/2 Ml Vial) 4 mg IVPUSH ONCE PRN PRN Reason: Nausea and Vomiting Ondansetron HCl (Ondansetron Odt 4 Mg Tab.Rapdis) 4 mg TRANSLINGU Q6H PRN PRN Reason: Nausea Last Admin: 11/09/21 17:54 Dose: 4 mg Documented By: EBER Trazodone HCl (Trazodone Hcl 50 Mg Tablet) 50 mg PO BEDTIME PRN PRN Reason: Insomnia Last Admin: 11/15/21 21:33 Dose: 50 mg Documented By: JORDY Trimethoprim/Sulfamethoxazole (Sulfamethox/Trimeth 800/160 Tablet) 1 tab PO Q12H [facility] Last Admin: 11/16/21 11:47 Dose: Not Given Documented By: PEG Non-Admin Reason: Patient Refused Labs CBC & Chem 7: 11/16/21 13:37 11/07/21 08:09 Labs: Laboratory Results - last 24 hr 11/16/21 13:37 MCV 94.2 MCH 30.3 MCHC 32.1 RDW 13.8 Plt Count 263 D MPV 10.5 Immature Gran % (Auto) 0.4 Neut % (Auto) 64.8 Lymph % (Auto) 28.9 [place] % (Auto) 4.1 Eos % (Auto) 1.0 Baso % (Auto) 0.8 Lymph # (Auto) 2.3 [place] # (Auto) 0.3 Eos # (Auto) 0.1 Baso # (Auto) 0.1 Abs Immat Gran (auto) 0.03 Absolute Neuts (auto) 5.1 Absolute Nucleated RBC 0.000 Nucleated RBC % (auto) 0.0 Assessment and Plan (1) NATE (acute kidney injury): Status: Acute Plan This is an 81 yo F with multiple medical problems including permanant A. fib on OAC, chronic HFpEF, HTN, ocular melanoma, dementia, depression/anxiety who is admitted to the inpatient [facility]. Medical consult requested for change in her overall clinical status. The patient has been receiving scheduled ECTs. 1. Acute changes in behavior/mental status Routine CBC, CMP, UA have been ordered. Will also add troponins On exam -- she does not have any focal deficits. Unclear if this is related to ECTs vs underlying dementia. I would hold off on ECT until we can figure out what exactly is causing her ac [place] changes. If the above work up is negative, may need to consider neurology consultation For her chronic A. Fib / other medical diagnoses. They appear at baseline. Would continue with the current regime. Additionally - pt has received 10 days of Bactrim. (This was for UTI per d/w Dr. Medina). Will d/c it. Addendum: Repeat labs reviewed -- noted BUN/SCr have increased from prior values. Appears to be dry. Recommend oral hydration and if able, gentle IVF (80 cc/hr x 24 hours). Will hold lasix for the next couple of days. Repeat labs in 48 hours or so. Trop-I decreased from prior. Would hold off on ECT for the time being until she is more at her baseline. Quality Stroke Does the patient have a stroke diagnosis?: No VTE Prior VTE?: No VTE Risk Level:: Medical - moderate - high VTE Device Contraindication: N/A - Device Ordered VTE Drug Contraindication: N/A - Med Ordered
[2021-11-16 14:04] LABS: Alanine Aminotransferase 37 U/L (0-31); Albumin Level 3.6 g/dL (3.5-5.0); Alkaline Phosphatase 62 U/L (39-117); Anion Gap 14 (12-20); Aspartate Amino Transferase 19 U/L (5-31); Bilirubin Direct 0.2 mg/dL (0.0-0.5); Bilirubin Total 0.4 mg/dL (0.0-1.0); Blood Urea Nitrogen 41 mg/dL (9-16); Calcium 9.5 mg/dL (8.4-10.2); Carbon Dioxide 24 mmol/L (22-29); Chloride 107 mmol/L (96-108); Creatinine Clr Calc Pharmacy 22.4; Estimated Glomerular Filt Rate 40; Glucose Random 90 mg/dL (60-115); Potassium 5.1 mmol/L (3.3-5.1); Sodium 140 mmol/L (135-145); Total Protein 6.1 g/dL (6.5-8.0)
[2021-11-16 14:10] LABS: Troponin-I High Sensitivity 13.3 ng/L (<3.5-17.0)
[2021-11-16 16:15] LABS: COVID-19 Test Negative (Negative); IDNOW Serial# 9DB6401D
[2021-11-16] MEDS: Lactated Ringers 500 ML 80 ML IV (16:35)
--- NOTE | 2021-11-16 17:56 | PC.NURSE ---
Pt with BP this AM of 102/58, pt reported I just don't feel right . EKG ordered with result of A-fib, labs ordered. Hospitalist consulted, pt evaluated with orders for LR 500ml at 80/hour. Pt tolerating IV fluids well. Pt did not eat breakfast or lunch, pt at about 25% of dinner.
[2021-11-16 19:40] VITALS: BP 117/69; PULSE 88; RESP 12; TEMP 36.7; O2SAT 95
[2021-11-16] MEDS: Metoprolol Tartrate 100 MG TABLET PO (20:05)
[2021-11-16] MEDS: DULoxetine HCl 30 MG CAPSULE.DR PO (20:05)
[2021-11-16] MEDS: Mirtazapine 15 MG TABLET PO (20:05)
[2021-11-16] MEDS: Atorvastatin Calcium 40 MG TABLET PO (20:06)
[2021-11-16] MEDS: OLANZapine 2.5 MG TABLET PO (20:06)
[2021-11-16] MEDS: Apixaban 2.5 MG TABLET PO (20:06)
[2021-11-16] MEDS: traZODone HCL 50 MG TABLET PO (20:07)
[2021-11-16 20:10] LABS: Appearance Urine Clear; Color Urine Yellow; Glucose Urine UA Negative (Negative); Leukocyte Esterase Urine Moderate (2+) (Negative); Nitrite Urine Negative (Negative); PH 6.5 (5.0-9.0); Specific Gravity - Urine 1.015 (1.005-1.025); UMIC TRIGGER UACC YES; Urine Blood Negative (Negative); Urine Ketones Negative (Negative); Urine Protein Negative (Neg-Trace)
[2021-11-16 20:25] LABS: Bacteria Urine None Seen (None Seen); Hyaline Casts Urine 0-2 /LPF (0-2); RBC Urine 0-2 /HPF (0-2); Squamous Epithelial Cell Urine 0-2 /HPF (0-2); WBC Urine 0-5 /HPF (0-5)
[2021-11-16] MEDS: Acetaminophen 325 MG TABLET 650 MG PO (22:48)
--- NOTE | 2021-11-17 | ECG_ITS ---
Test Reason : afib Blood Pressure : / mmHG Vent. Rate : 093 BPM Atrial Rate : 000 BPM P-R Int : 000 ms QRS Dur : 084 ms QT Int : 350 ms P-R-T Axes : 000 -55 136 degrees QTc Int : 435 ms Atrial fibrillation Left axis deviation Minimal voltage criteria for LVH, may be normal variant ( R in aVL ) Inferior infarct , age undetermined Anteroseptal infarct (cited on or before 29-MAR-2020) ST & T wave abnormality, consider lateral ischemia Abnormal ECG When compared with ECG of 16-NOV-2021 11:24, Inferior infarct is now Present Nonspecific T wave abnormality now evident in Anterior leads Referred By: Daryl Medina Electronically Signed By:JUSTIN WILCOX
--- NOTE | 2021-11-17 08:30 | HO.PSYCHPN ---
Subjective Subjective Date of Service: 11/17/21 Reason For Visit: Depression Subjective Notes: Conditional Voluntary Interim History: Yesterday the patient reported that she was not feeling well in the afternoon. We consulted Medicine and then later Cardiology because her EKG showed AFib but is a chronic condition. On her labs of yesterday shows increased urea and she was slightly that he had rotated so we started an IV up to 80 milliliters/liter and she was doing much better. Her UA came back positive but her COVID vac back negative. On interview the patient denies new symptoms she looks slightly confused. The case was discussed with Dr. Langston and he believes that the problem is her blood pressure medications and heat rotation that caused these episode he does not believe that it is UTI and at this moment we should and start antibiotics. We will check her basic metabolic panel tomorrow and on Saturday. Mental Status Exam Mental Status Exam Patient Appearance: Well Grooomed Patient Orientation: Person and Situation Level of Consciousness: Awake Patient Behavior: Cooperative Mood Description: Constricted Affect Description: Calm Patient Cognition Impaired: Yes Ability to Follow Directions: Good Speech Pattern: Clear Hallucinations: None Delusions: Not Present Thought Process: Distracted Thought Content: positive for Circumstantial Judgement: Fair Diagnostics Vital Signs (24Hr): Vital Signs - 24 hr 11/16/21 09:57 11/16/21 19:40 Temperature 97.9 F 98.1 F Pulse Rate 98 88 Respiratory Rate 18 12 Blood Pressure 100/62 117/69 Pulse Oximetry 99 95 Oxygen Delivery Method Room Air Room Air BMI result Body Mass Index 17.9 Labs Results: 11/16/21 13:37 11/17/21 08:19 Labs: Laboratory Results - last 48 hr 11/16/21 11/16/21 11/16/21 13:37 13:37 13:37 WBC 7.8 RBC 3.80 L Hgb 11.5 L Hct 35.8 L MCV 94.2 MCH 30.3 MCHC 32.1 RDW 13.8 Plt Count 263 D MPV 10.5 Immature Gran % (Auto) 0.4 Neut % (Auto) 64.8 Lymph % (Auto) 28.9 [place] % (Auto) 4.1 Eos % (Auto) 1.0 Baso % (Auto) 0.8 Lymph # (Auto) 2.3 [place] # (Auto) 0.3 Eos # (Auto) 0.1 Baso # (Auto) 0.1 Abs Immat Gran (auto) 0.03 Absolute Neuts (auto) 5.1 Absolute Nucleated RBC 0.000 Nucleated RBC % (auto) 0.0 Sodium 140 Potassium 5.1 D Chloride 107 Carbon Dioxide 24 Anion Gap 14 BUN 41 H D Creatinine 1.27 Estim Creat Clear Calc 22.4 Estimated GFR 40 Random Glucose 90 Calcium 9.5 Total Bilirubin 0.4 Direct Bilirubin 0.2 AST 19 ALT 37 H Alkaline Phosphatase 62 Troponin I High Sens 13.3 Total Protein 6.1 L Albumin 3.6 Urine Color Urine Appearance Urine pH Ur Specific [place] Urine Protein Urine Glucose (UA) Urine Ketones Urine Blood Urine Nitrite Ur Leukocyte Esterase Urine RBC Urine WBC Ur Squamous Epith Cells Urine Bacteria Hyaline Casts COVID-19 (KYLEE) COVID-19 .[employer] 11/16/21 11/16/21 15:25 19:50 WBC RBC Hgb Hct MCV MCH MCHC RDW Plt Count MPV Immature Gran % (Auto) Neut % (Auto) Lymph % (Auto) [place] % (Auto) Eos % (Auto) Baso % (Auto) Lymph # (Auto) [place] # (Auto) Eos # (Auto) Baso # (Auto) Abs Immat Gran (auto) Absolute Neuts (auto) Absolute Nucleated RBC Nucleated RBC % (auto) Sodium Potassium Chloride Carbon Dioxide Anion Gap BUN Creatinine Estim Creat Clear Calc Estimated GFR Random Glucose Calcium Total Bilirubin Direct Bilirubin AST ALT Alkaline Phosphatase Troponin I High Sens Total Protein Albumin Urine Color Yellow Urine Appearance Clear Urine pH 6.5 Ur Specific [place] 1.015 Urine Protein Negative Urine Glucose (UA) Negative Urine Ketones Negative Urine Blood Negative Urine Nitrite Negative Ur Leukocyte Esterase Moderate (2+) H Urine RBC 0-2 Urine WBC 0-5 Ur Squamous Epith Cells 0-2 Urine Bacteria None Seen Hyaline Casts 0-2 COVID-19 (KYLEE) Negative COVID-19 [facility] See Note Imaging Radiology Impressions: ITS Impressions Venous Duplex 11/05/21 14:21 IMPRESSION: No DVT demonstrated in the left lower extremity. Medications Medications Current Medications Acetaminophen (Acetaminophen 325 Mg Tablet) 650 mg PO Q6H PRN PRN Reason: Pain, Mild (Pain Scale 1-3) Last Admin: 11/16/21 22:48 Dose: 650 mg Acetaminophen (Acetaminophen 325 Mg Tablet) 650 mg PO ONCE PRN PRN Reason: Pain, Mild (Pain Scale 1-3) Al Hydroxide/Mg Hydroxide (Magnesium Hydrox/Alum Hydrox 30 Ml Oral.Susp) 30 ml PO Q6H PRN PRN Reason: Heartburn/Nausea Amlodipine Besylate (Amlodipine Besylate 10 Mg Tablet) 10 mg PO DAILY [facility]; Protocol Last Admin: 11/16/21 11:46 Dose: Not Given Apixaban (Apixaban 2.5 Mg Tablet) 2.5 mg PO BID [facility] Last Admin: 11/16/21 20:06 Dose: 2.5 mg Atorvastatin Calcium (Atorvastatin Calcium 40 Mg Tablet) 40 mg PO BEDTIME [facility] Last Admin: 11/16/21 20:06 Dose: 40 mg Calcium Carbonate/Cholecalciferol (Calcium + Vitamin D 250 Mg Tablet) 500 mg PO DAILY [facility] Last Admin: 11/16/21 11:46 Dose: Not Given Digoxin (Digoxin 0.125 Mg Tablet) 0.125 mg PO TuWeThFr@0900 [facility] Last Admin: 11/16/21 11:46 Dose: Not Given Duloxetine HCl (Duloxetine Hcl 30 Mg Capsule.Dr) 30 mg PO BID [facility] Last Admin: 11/16/21 20:05 Dose: 30 mg Fluoxetine HCl (Fluoxetine Hcl Oral Solution 20 Mg/5 Ml Solution) 10 mg PO DAILY PRN PRN Reason: if pt refuses duloxetine Furosemide (Furosemide 20 Mg Tablet) 20 mg PO DAILY [facility]; Protocol Last Admin: 11/16/21 11:46 Dose: Not Given Hydroxyzine HCl (Hydroxyzine Hcl 25 Mg Tablet) 25 mg PO Q6H PRN PRN Reason: Anxiety Last Admin: 11/07/21 20:32 Dose: 25 mg Magnesium Hydroxide (Milk Of Magnesia 30 Ml Oral.Susp) 30 ml PO DAILY PRN PRN Reason: Constipation Metoprolol Tartrate (Metoprolol Tartrate 100 Mg Tablet) 100 mg PO BID [facility]; Protocol Last Admin: 11/16/21 20:05 Dose: 100 mg Mirtazapine (Mirtazapine 15 Mg Tablet) 15 mg PO BEDTIME [facility] Last Admin: 11/16/21 20:05 Dose: 15 mg Olanzapine (Olanzapine 2.5 Mg Tablet) 2.5 mg PO Q4H PRN PRN Reason: Psychosis Last Admin: 10/31/21 04:27 Dose: 2.5 mg Olanzapine (Olanzapine 2.5 Mg Tablet) 2.5 mg PO BID [facility] Last Admin: 11/16/21 20:06 Dose: 2.5 mg Ondansetron HCl (Ondansetron Hcl 4 Mg/2 Ml Vial) 4 mg IVPUSH ONCE PRN PRN Reason: Nausea and Vomiting Ondansetron HCl (Ondansetron Odt 4 Mg Tab.Rapdis) 4 mg TRANSLINGU Q6H PRN PRN Reason: Nausea Last Admin: 11/09/21 17:54 Dose: 4 mg Trazodone HCl (Trazodone Hcl 50 Mg Tablet) 50 mg PO BEDTIME PRN PRN Reason: Insomnia Last Admin: 11/16/21 20:07 Dose: 50 mg Allergies Allergies Allergy/AdvReac Type Severity Reaction Status Date / Time morphine AdvReac Severe Alternate Verified 09/27/21 10:25 mental status Assessment & Plan Assessment & Plan (1) NATE (acute kidney injury): Status: Acute Code(s): N17.9 - Acute kidney failure, unspecified Plan This is an 81 yo F with multiple medical problems including permanant A. fib on OAC, chronic HFpEF, HTN, ocular melanoma, dementia, depression/anxiety who is admitted to the inpatient [facility]. Medical consult requested for change in her overall clinical status. The patient has been receiving scheduled ECTs. 1. Acute changes in behavior/mental status Routine CBC, CMP, UA have been ordered. Will also add troponins On exam -- she does not have any focal deficits. Unclear if this is related to ECTs vs underlying dementia. I would hold off on ECT until we can figure out what exactly is causing her acute changes. If the above work up is negative, may need to consider neurology consultation For her chronic A. Fib / other medical diagnoses. They appear at baseline. Would continue with the current regime. Additionally - pt has received 10 days of Bactrim. (This was for UTI per d/w Dr. Medina). Will d/c it. Addendum: Repeat labs reviewed -- noted BUN/SCr have increased from prior values. Appears to be dry. Recommend oral hydration and if able, gentle IVF (80 cc/hr x 24 hours). Will hold lasix for the next couple of days. Repeat labs in 48 hours or so. Trop-I decreased from prior. Would hold off on ECT for the time being until she is more at her baseline. UA positive But negative cultive., COVID negative. I spent ___20___ minutes with the patient and/or on the patient floor today, greater than?50% of which was spent counseling/coordinating care. Reason for contiued inpatient stay Substantial Risk for: inability to function, rapid decompensation and med/psych decompensation
[2021-11-17 08:51] LABS: Anion Gap 13 (12-20); Blood Urea Nitrogen 27 mg/dL (9-16); Calcium 9.5 mg/dL (8.4-10.2); Carbon Dioxide 24 mmol/L (22-29); Chloride 108 mmol/L (96-108); Creatinine Clr Calc Pharmacy 28.5; Estimated Glomerular Filt Rate 53; Glucose Random 95 mg/dL (60-115); Potassium 4.6 mmol/L (3.3-5.1); Sodium 140 mmol/L (135-145)
[2021-11-17] MEDS: DULoxetine HCl 30 MG CAPSULE.DR PO ×2 (09:38→20:13)
[2021-11-17] MEDS: Calcium + Vitamin D 250 MG TABLET 500 MG PO (09:38)
[2021-11-17] MEDS: amLODIPine Besylate 10 MG TABLET PO (09:38)
[2021-11-17] MEDS: OLANZapine 2.5 MG TABLET PO ×2 (09:38→20:14)
[2021-11-17] MEDS: Digoxin 0.125 MG TABLET PO (09:39)
[2021-11-17] MEDS: Metoprolol Tartrate 100 MG TABLET PO ×2 (09:39→20:14)
[2021-11-17] MEDS: Apixaban 2.5 MG TABLET PO ×2 (09:39→20:14)
--- NOTE | 2021-11-17 10:28 | PM.EVENT ---
Event Note Date of Service: 11/17/21 Event Note: Chart reviewed and case d/w Dr. Medina. He reports patient has improved with the treatment yesterday (IVF, hold diuretics). Labs show improvement in SCr. BP trend over the last several days shows that it has improved dramatically compared to previously. In fact, maybe too well controlled. Will hold her lasix over the week. Also hold norsvasc and see what happens to BP. UA reviewed -- has pyuria, but no bacteria/nitrites. Additionally she just completed a 10 day course of Bactrim for UTI. Does not need antibiotics at this time for UTI. Will f/u with Dr. Medina on Saturday. Please call hospitalist team before then if any questions. Thank you.
--- NOTE | 2021-11-17 11:16 | MHC.CLN ---
F/U DIET=REGULAR. ENSURE TID PROVIDES ADDITIONAL 1050 KCALS, 60 G PROTEIN. EPISODE OF NOT FEELING WELL ON 11/16, NOT EATING BREAKFAST OR LUNCH, AND DINNER=25%. PATIENT IN LYING IN BED AT TIME OF VISIT THIS MORNING. CONTINUE TO ENCOURAGE INTAKE AT MEALS AND SUPPLEMENT ABLE. RD TO FOLLOW WEEKLY.
[2021-11-17 15:52] LABS: Anion Gap 15 (12-20); Blood Urea Nitrogen 36 mg/dL (9-16); Calcium 9.1 mg/dL (8.4-10.2); Carbon Dioxide 24 mmol/L (22-29); Chloride 106 mmol/L (96-108); Creatinine Clr Calc Pharmacy 24.8; Estimated Glomerular Filt Rate 45; Glucose Random 143 mg/dL (60-115); Potassium 4.9 mmol/L (3.3-5.1); Sodium 140 mmol/L (135-145)
[2021-11-17 19:30] VITALS: BP 111/60; PULSE 85; RESP 14; TEMP 36.7; O2SAT 95
[2021-11-17] MEDS: Mirtazapine 15 MG TABLET PO (20:14)
[2021-11-17] MEDS: Atorvastatin Calcium 40 MG TABLET PO (20:14)
[2021-11-18 08:10] VITALS: BP 148/72; PULSE 99; RESP 17; TEMP 36.2; O2SAT 95
[2021-11-18] MEDS: OLANZapine 2.5 MG TABLET PO ×2 (08:14→21:59)
[2021-11-18] MEDS: Metoprolol Tartrate 100 MG TABLET PO ×2 (08:14→21:59)
[2021-11-18] MEDS: Calcium + Vitamin D 250 MG TABLET 500 MG PO (08:15)
[2021-11-18] MEDS: DULoxetine HCl 30 MG CAPSULE.DR PO ×2 (08:15→21:59)
[2021-11-18] MEDS: Apixaban 2.5 MG TABLET PO ×2 (08:16→21:58)
--- NOTE | 2021-11-18 10:54 | P.PNPSI_ITS ---
Subjective Subjective Date of Service: 11/18/21 Reason For Visit: Depression Subjective Notes: Conditional Voluntary Interim History: Patient was seen and discussed in rounds today. Records from plans were reviewed. Yesterday she started feeling weak and after consulting with the hospitalist she was put on IV which was helpful. She is off of it this morning. BMP is to be done this morning which I ordered. She was a little dizzy this morning but after which she improved. Her vital signs are within normal range. No changes were implemented today Review of Systems Review of Systems General: No fevers, malaise, unintentional weight loss Cardiovascular: No chest pain, palpitations, +edema lle Respiratory: No shortness of breath, wheezing, cough GI: No abdominal pain, nausea, vomiting, diarrhea, constipation, melena, hematochezia Neuro: No headaches, weakness, paresthesias Skin: No rashes or lesions Diagnostics Vital Signs (24Hr): Vital Signs - 24 hr 11/17/21 19:30 11/18/21 08:10 Temperature 98.0 F 97.2 F Pulse Rate 85 99 Respiratory Rate 14 17 Blood Pressure 111/60 148/72 H Pulse Oximetry 95 95 Oxygen Delivery Method Room Air Room Air BMI result Body Mass Index 17.9 Labs Results: 11/16/21 13:37 11/17/21 15:32 Labs: Laboratory Results - last 48 hr 11/16/21 11/16/21 11/16/21 13:37 13:37 13:37 WBC 7.8 RBC 3.80 L Hgb 11.5 L Hct 35.8 L MCV 94.2 MCH 30.3 MCHC 32.1 RDW 13.8 Plt Count 263 D MPV 10.5 Immature Gran % (Auto) 0.4 Neut % (Auto) 64.8 Lymph % (Auto) 28.9 [place] % (Auto) 4.1 Eos % (Auto) 1.0 Baso % (Auto) 0.8 Lymph # (Auto) 2.3 [place] # (Auto) 0.3 Eos # (Auto) 0.1 Baso # (Auto) 0.1 Abs Immat Gran (auto) 0.03 Absolute Neuts (auto) 5.1 Absolute Nucleated RBC 0.000 Nucleated RBC % (auto) 0.0 Sodium 140 Potassium 5.1 D Chloride 107 Carbon Dioxide 24 Anion Gap 14 BUN 41 H D Creatinine 1.27 Estim Creat Clear Calc 22.4 Estimated GFR 40 Random Glucose 90 Calcium 9.5 Total Bilirubin 0.4 Direct Bilirubin 0.2 AST 19 ALT 37 H Alkaline Phosphatase 62 Troponin I High Sens 13.3 Total Protein 6.1 L Albumin 3.6 Urine Color Urine Appearance Urine pH Ur Specific [place] Urine Protein Urine Glucose (UA) Urine Ketones Urine Blood Urine Nitrite Ur Leukocyte Esterase Urine RBC Urine WBC Ur Squamous Epith Cells Urine Bacteria Hyaline Casts COVID-19 ([facility]) COVID-19 Clin Com 11/16/21 11/16/21 11/17/21 15:25 19:50 08:19 WBC RBC Hgb Hct MCV MCH MCHC RDW Plt Count MPV Immature Gran % (Auto) Neut % (Auto) Lymph % (Auto) [place] % (Auto) Eos % (Auto) Baso % (Auto) Lymph # (Auto) [place] # (Auto) Eos # (Auto) Baso # (Auto) Abs Immat Gran (auto) Absolute Neuts (auto) Absolute Nucleated RBC Nucleated RBC % (auto) Sodium 140 Potassium 4.6 Chloride 108 Carbon Dioxide 24 Anion Gap 13 BUN 27 H Creatinine 1.00 Estim Creat Clear Calc 28.5 Estimated GFR 53 Random Glucose 95 Calcium 9.5 Total Bilirubin Direct Bilirubin AST ALT Alkaline Phosphatase Troponin I High Sens Total Protein Albumin Urine Color Yellow Urine Appearance Clear Urine pH 6.5 Ur Specific Leroy 1.015 Urine Protein Negative Urine Glucose (UA) Negative Urine Ketones Negative Urine Blood Negative Urine Nitrite Negative Ur Leukocyte Esterase Moderate (2+) H Urine RBC 0-2 Urine WBC 0-5 Ur Squamous Epith Cells 0-2 Urine Bacteria None Seen Hyaline Casts 0-2 COVID-19 ([facility]) Negative COVID-19 Clin Com See Note 11/17/21 15:32 WBC RBC Hgb Hct MCV MCH MCHC RDW Plt Count MPV Immature Gran % (Auto) Neut % (Auto) Lymph % (Auto) [place] % (Auto) Eos % (Auto) Baso % (Auto) Lymph # (Auto) [place] # (Auto) Eos # (Auto) Baso # (Auto) Abs Immat Gran (auto) Absolute Neuts (auto) Absolute Nucleated RBC Nucleated RBC % (auto) Sodium 140 Potassium 4.9 Chloride 106 Carbon Dioxide 24 Anion Gap 15 BUN 36 H Creatinine 1.15 Estim Creat Clear Calc 24.8 Estimated GFR 45 Random Glucose 143 H Calcium 9.1 Total Bilirubin Direct Bilirubin AST ALT Alkaline Phosphatase Troponin I High Sens Total Protein Albumin Urine Color Urine Appearance Urine pH Ur Specific [place] Urine Protein Urine Glucose (UA) Urine Ketones Urine Blood Urine Nitrite Ur Leukocyte Esterase Urine RBC Urine WBC Ur Squamous Epith Cells Urine Bacteria Hyaline Casts COVID-19 ([facility]) COVID-19 Clin Com Imaging Radiology Impressions: ITS Impressions Venous Duplex 11/05/21 14:21 IMPRESSION: No DVT demonstrated in the left lower extremity. Medications Medications Current Medications Acetaminophen (Acetaminophen 325 Mg Tablet) 650 mg PO Q6H PRN PRN Reason: Pain, Mild (Pain Scale 1-3) Last Admin: 11/16/21 22:48 Dose: 650 mg Acetaminophen (Acetaminophen 325 Mg Tablet) 650 mg PO ONCE PRN PRN Reason: Pain, Mild (Pain Scale 1-3) Al Hydroxide/Mg Hydroxide (Magnesium Hydrox/Alum Hydrox 30 Ml Oral.Susp) 30 ml PO Q6H PRN PRN Reason: Heartburn/Nausea Amlodipine Besylate (Amlodipine Besylate 10 Mg Tablet) 10 mg PO DAILY [facility]; Protocol Last Admin: 11/17/21 09:38 Dose: 10 mg Apixaban (Apixaban 2.5 Mg Tablet) 2.5 mg PO BID [facility] Last Admin: 11/18/21 08:16 Dose: 2.5 mg Atorvastatin Calcium (Atorvastatin Calcium 40 Mg Tablet) 40 mg PO BEDTIME [facility] Last Admin: 11/17/21 20:14 Dose: 40 mg Calcium Carbonate/Cholecalciferol (Calcium + Vitamin D 250 Mg Tablet) 500 mg PO DAILY [facility] Last Admin: 11/18/21 08:15 Dose: 500 mg Digoxin (Digoxin 0.125 Mg Tablet) 0.125 mg PO [id number] [facility] Last Admin: 11/17/21 09:39 Dose: 0.125 mg Duloxetine HCl (Duloxetine Hcl 30 Mg Capsule.Dr) 30 mg PO BID [facility] Last Admin: 11/18/21 08:15 Dose: 30 mg Fluoxetine HCl (Fluoxetine Hcl Oral Solution 20 Mg/5 Ml Solution) 10 mg PO DAILY PRN PRN Reason: if pt refuses duloxetine Furosemide (Furosemide 20 Mg Tablet) 20 mg PO DAILY [facility]; Protocol Last Admin: 11/16/21 11:46 Dose: Not Given Hydroxyzine HCl (Hydroxyzine Hcl 25 Mg Tablet) 25 mg PO Q6H PRN PRN Reason: Anxiety Last Admin: 11/07/21 20:32 Dose: 25 mg Magnesium Hydroxide (Milk Of Magnesia 30 Ml Oral.Susp) 30 ml PO DAILY PRN PRN Reason: Constipation Metoprolol Tartrate (Metoprolol Tartrate 100 Mg Tablet) 100 mg PO BID [facility]; Protocol Last Admin: 11/18/21 08:14 Dose: 100 mg Mirtazapine (Mirtazapine 15 Mg Tablet) 15 mg PO BEDTIME [facility] Last Admin: 11/17/21 20:14 Dose: 15 mg Olanzapine (Olanzapine 2.5 Mg Tablet) 2.5 mg PO Q4H PRN PRN Reason: Psychosis Last Admin: 10/31/21 04:27 Dose: 2.5 mg Olanzapine (Olanzapine 2.5 Mg Tablet) 2.5 mg PO BID [facility] Last Admin: 11/18/21 08:14 Dose: 2.5 mg Ondansetron HCl (Ondansetron Hcl 4 Mg/2 Ml Vial) 4 mg IVPUSH ONCE PRN PRN Reason: Nausea and Vomiting Ondansetron HCl (Ondansetron Odt 4 Mg Tab.Rapdis) 4 mg TRANSLINGU Q6H PRN PRN Reason: Nausea Last Admin: 11/09/21 17:54 Dose: 4 mg Trazodone HCl (Trazodone Hcl 50 Mg Tablet) 50 mg PO BEDTIME PRN PRN Reason: Insomnia Last Admin: 11/16/21 20:07 Dose: 50 mg Allergies Allergies Allergy/AdvReac Type Severity Reaction Status Date / Time morphine AdvReac Severe Alternate Verified 09/27/21 10:25 mental status Assessment & Plan Assessment & Plan (1) NATE (acute kidney injury): Status: Acute Code(s): N17.9 - Acute kidney failure, unspecified Plan This is an 81 yo F with multiple medical problems including permanant A. fib on OAC, chronic HFpEF, HTN, ocular melanoma, dementia, depression/anxiety who is admitted to the inpatient [facility] unit. Medical consult requested for change in her overall clinical status. The patient has been receiving scheduled ECTs. 1. Acute changes in behavior/mental status Routine CBC, CMP, UA have been ordered. Will also add troponins On exam -- she does not have any focal deficits. Unclear if this is related to ECTs vs underlying dementia. I would hold off on ECT until we can figure out what exactly is causing her acute changes. If the above work up is negative, may need to consider neurology consultation For her chronic A. Fib / other medical diagnoses. They appear at baseline. Would continue with the current regime. Additionally - pt has received 10 days of Bactrim. (This was for UTI per d/w Dr. Medina). Will d/c it. Addendum: Repeat labs reviewed -- noted BUN/SCr have increased from prior values. Appears to be dry. Recommend oral hydration and if able, gentle IVF (80 cc/hr x 24 hours). Will hold lasix for the next couple of days. Repeat labs in 48 hours or so. Trop-I decreased from prior. Would hold off on ECT for the time being until she is more at her baseline. UA positive But negative cultive., COVID negative. 11/18: Continue current regimen and plans. Review BMP when it comes back I spent minutes with the patient and/or on the patient floor today, greater than?50% of which was spent counseling/coordinating care. Reason for contiued inpatient stay Substantial Risk for: med/psych decompensation
[2021-11-18 11:30] LABS: Anion Gap 15 (12-20); Blood Urea Nitrogen 33 mg/dL (9-16); Carbon Dioxide 22 mmol/L (22-29); Chloride 106 mmol/L (96-108); Creatinine Clr Calc Pharmacy 28.5; Estimated Glomerular Filt Rate 53; Glucose Random 142 mg/dL (60-115); Potassium 4.3 mmol/L (3.3-5.1); Sodium 139 mmol/L (135-145)
[2021-11-18 14:29] VITALS: BP 127/72; PULSE 71; RESP 16; TEMP 36.2
[2021-11-18 21:57] VITALS: BP 146/72; PULSE 77; O2SAT 95
[2021-11-18] MEDS: Mirtazapine 15 MG TABLET PO (21:59)
[2021-11-18] MEDS: Atorvastatin Calcium 40 MG TABLET PO (21:59)
[2021-11-19 08:19] VITALS: BP 134/75; PULSE 67; RESP 18; TEMP 36.5; O2SAT 95
[2021-11-19] MEDS: DULoxetine HCl 30 MG CAPSULE.DR PO ×2 (08:20→20:55)
[2021-11-19] MEDS: Calcium + Vitamin D 250 MG TABLET 500 MG PO (08:20)
[2021-11-19] MEDS: Metoprolol Tartrate 100 MG TABLET PO ×2 (08:21→20:55)
[2021-11-19] MEDS: OLANZapine 2.5 MG TABLET PO ×2 (08:21→20:55)
[2021-11-19] MEDS: Apixaban 2.5 MG TABLET PO ×2 (08:21→20:55)
--- NOTE | 2021-11-19 08:44 | P.PNPSI_ITS ---
Subjective Subjective Date of Service: 11/19/21 Reason For Visit: Depression Subjective Notes: Conditional Voluntary Interim History: Patient was seen and discussed in rounds today. Records from plans were reviewed. She is doing much better today. She has been eating and sleeping adequately. She is mostly isolative. Blood work showed elevated BUN which is probably secondary to dehydration still. No edema. Vital signs have been within normal range. No complaints. She is looking forward to discharge, possibly this week. No changes were made today Review of Systems Review of Systems Yes all other systems are reviewed and are negative Diagnostics Vital Signs (24Hr): Vital Signs - 24 hr 11/18/21 14:29 11/18/21 21:57 11/19/21 08:19 Temperature 97.1 F 97.7 F Pulse Rate 71 77 67 Respiratory Rate 16 18 Blood Pressure 127/72 146/72 H 134/75 Pulse Oximetry 95 95 Oxygen Delivery Method Room Air Room Air BMI result Body Mass Index 17.9 Labs Results: 11/16/21 13:37 11/18/21 11:01 Labs: Laboratory Results - last 48 hr 11/17/21 11/17/21 11/18/21 08:19 15:32 11:01 Sodium 140 140 139 Potassium 4.6 4.9 4.3 Chloride 108 106 106 Carbon Dioxide 24 24 22 Anion Gap 13 15 15 BUN 27 H 36 H 33 H Creatinine 1.00 1.15 1.00 Estim Creat Clear Calc 28.5 24.8 28.5 Estimated GFR 53 45 53 Random Glucose 95 143 H 142 H Calcium 9.5 9.1 9.0 Imaging Radiology Impressions: ITS Impressions Venous Duplex 11/05/21 14:21 IMPRESSION: No DVT demonstrated in the left lower extremity. Medications Medications Current Medications Acetaminophen (Acetaminophen 325 Mg Tablet) 650 mg PO Q6H PRN PRN Reason: Pain, Mild (Pain Scale 1-3) Last Admin: 11/16/21 22:48 Dose: 650 mg Acetaminophen (Acetaminophen 325 Mg Tablet) 650 mg PO ONCE PRN PRN Reason: Pain, Mild (Pain Scale 1-3) Al Hydroxide/Mg Hydroxide (Magnesium Hydrox/Alum Hydrox 30 Ml Oral.Susp) 30 ml PO Q6H PRN PRN Reason: Heartburn/Nausea Amlodipine Besylate (Amlodipine Besylate 10 Mg Tablet) 10 mg PO DAILY [facility]; Protocol Last Admin: 11/17/21 09:38 Dose: 10 mg Apixaban (Apixaban 2.5 Mg Tablet) 2.5 mg PO BID [facility] Last Admin: 11/19/21 08:21 Dose: 2.5 mg Atorvastatin Calcium (Atorvastatin Calcium 40 Mg Tablet) 40 mg PO BEDTIME [facility] Last Admin: 11/18/21 21:59 Dose: 40 mg Calcium Carbonate/Cholecalciferol (Calcium + Vitamin D 250 Mg Tablet) 500 mg PO DAILY [facility] Last Admin: 11/19/21 08:20 Dose: 500 mg Digoxin (Digoxin 0.125 Mg Tablet) 0.125 mg PO [id number] [facility] Last Admin: 11/17/21 09:39 Dose: 0.125 mg Duloxetine HCl (Duloxetine Hcl 30 Mg Capsule.Dr) 30 mg PO BID [facility] Last Admin: 11/19/21 08:20 Dose: 30 mg Fluoxetine HCl (Fluoxetine Hcl Oral Solution 20 Mg/5 Ml Solution) 10 mg PO [place] LY PRN PRN Reason: if pt refuses duloxetine Furosemide (Furosemide 20 Mg Tablet) 20 mg PO DAILY [facility]; Protocol Last Admin: 11/16/21 11:46 Dose: Not Given Hydroxyzine HCl (Hydroxyzine Hcl 25 Mg Tablet) 25 mg PO Q6H PRN PRN Reason: Anxiety Last Admin: 11/07/21 20:32 Dose: 25 mg Magnesium Hydroxide (Milk Of Magnesia 30 Ml Oral.Susp) 30 ml PO DAILY PRN PRN Reason: Constipation Metoprolol Tartrate (Metoprolol Tartrate 100 Mg Tablet) 100 mg PO BID [facility]; Protocol Last Admin: 11/19/21 08:21 Dose: 100 mg Mirtazapine (Mirtazapine 15 Mg Tablet) 15 mg PO BEDTIME [facility] Last Admin: 11/18/21 21:59 Dose: 15 mg Olanzapine (Olanzapine 2.5 Mg Tablet) 2.5 mg PO Q4H PRN PRN Reason: Psychosis Last Admin: 10/31/21 04:27 Dose: 2.5 mg Olanzapine (Olanzapine 2.5 Mg Tablet) 2.5 mg PO BID [facility] Last Admin: 11/19/21 08:21 Dose: 2.5 mg Ondansetron HCl (Ondansetron Hcl 4 Mg/2 Ml Vial) 4 mg IVPUSH ONCE PRN PRN Reason: Nausea and Vomiting Ondansetron HCl (Ondansetron Odt 4 Mg Tab.Rapdis) 4 mg TRANSLINGU Q6H PRN PRN Reason: Nausea Last Admin: 11/09/21 17:54 Dose: 4 mg Trazodone HCl (Trazodone Hcl 50 Mg Tablet) 50 mg PO BEDTIME PRN PRN Reason: Insomnia Last Admin: 11/16/21 20:07 Dose: 50 mg Allergies Allergies Allergy/AdvReac Type Severity Reaction Status Date / Time morphine AdvReac Severe Alternate Verified 09/27/21 10:25 mental status Assessment & Plan Assessment & Plan (1) NATE (acute kidney injury): Status: Acute Code(s): N17.9 - Acute kidney failure, unspecified Plan This is an 81 yo F with multiple medical problems including permanant A. fib on OAC, chronic HFpEF, HTN, ocular melanoma, dementia, depression/anxiety who is admitted to the inpatient [facility] unit. Medical consult requested for change in her overall clinical status. The patient has been receiving scheduled ECTs. 1. Acute changes in behavior/mental status Routine CBC, CMP, UA have been ordered. Will also add troponins On exam -- she does not have any focal deficits. Unclear if this is related to ECTs vs underlying dementia. I would hold off on ECT until we can figure out what exactly is causing her ac [place] changes. If the above work up is negative, may need to consider neurology consultation For her chronic A. Fib / other medical diagnoses. They appear at baseline. Would continue with the current regime. Additionally - pt has received 10 days of Bactrim. (This was for UTI per d/w Dr. Medina). Will d/c it. Addendum: Repeat labs reviewed -- noted BUN/SCr have increased from prior values. Appears to be dry. Recommend oral hydration and if able, gentle IVF (80 cc/hr x 24 hours). Will hold lasix for the next couple of days. Repeat labs in 48 hours or so. Trop-I decreased from prior. Would hold off on ECT for the time being until she is more at her baseline. UA positive But negative cultive., COVID negative. 11/18: Continue current regimen and plans. Review BMP when it comes back 11/19: Continue current regimen and plans and possible discharge this week I spent minutes with the patient and/or on the patient floor today, greater than?50% of which was spent counseling/coordinating care. Reason for contiued inpatient stay Substantial Risk for: med/psych decompensation
[2021-11-19] MEDS: Mirtazapine 15 MG TABLET PO (20:55)
[2021-11-19] MEDS: Atorvastatin Calcium 40 MG TABLET PO (20:55)
[2021-11-19] MEDS: traZODone HCL 50 MG TABLET PO (20:55)
[2021-11-20] VITALS (12 sets, daily range): BP systolic 101–156; BP diastolic 53–94; PULSE 66–100; RESP 11–18; TEMP 36.1–37.2; O2SAT 94–100
[2021-11-20] MEDS: Metoprolol Tartrate 100 MG TABLET PO ×2 (06:21→21:48)
--- NOTE | 2021-11-20 07:10 | HO.ANESPROP2 ---
[facility] Active Problems Active Problems: All Active Problems (Updated 11/04/21 @ 19:28 by BEATRIS Willson) Edema of left lower extremity (Acute) Major depressive disorder, recurrent severe without psychotic features (Acute) Atrial fibrillation with rapid ventricular response (Acute) Major depressive disorder (Acute) Delusion (Acute) Dementia (Acute) Compression fracture of T9 vertebra (Acute) E coli bacteremia (Acute) Ocular melanoma (Acute) Delusions (Acute) Bacteriuria (Acute) Depression (Acute) NATE (acute kidney injury) (Acute) Diarrhea (Acute) Uncontrolled hypertension (Acute) Acute diastolic heart failure (Acute) Pleural effusion (Acute) Pleural effusion (Acute) Hemopneumothorax (Acute) Fall (Acute) Fracture, rib (Acute ~02/2020) Atrial fibrillation with rapid ventricular response (Acute) HTN (hypertension) (Acute) Past Medical History Medical History Anxiety Atrial fibrillation with controlled ventricular rate Dementia Depression Diastolic heart failure GERD (gastroesophageal reflux disease) History of rib fracture HTN (hypertension) Major depressive disorder, 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 Father No problems noted. Family history of problems with anesthesia: No Surgical History Surgical History No pertinent past surgical history History of Problems with Anesthesia: No Social History Social History Household Members: Family Household Members Other:: Son, Akil Joe Housing: House Housing Other:: [facility] Do you presently have visiting nurse or other home services: Yes ([facility] services) Unable to assess alcohol history related to: Unable to respond Alcohol intake: never Patient Tobacco Use Status: Never used Tobacco Second Hand Smoke Exposure: No Use of substances other than those prescribed or required for medical reasons: No Currently Displaying Signs/Symptoms of Drug Intoxication Withdrawal: No Have you been hit, kicked, punched, or otherwise hurt by someone within the past year? If so, by whom?: No Do you feel safe in your current relationship?: No Current Relationship Is there a partner from a previous relationship who is making you feel unsafe now?: No Are you DNR?: Yes Advance Directives: Yes [facility] Advance Directives on File: Yes Advance Directives Date on File: 04/19/21 Do you have thoughts of harming others: None Do you have a plan to hurt others: No Plan Recently lost weight without trying: Yes How much weight loss: 24-33 pounds Eating poorly because of decreased appetite: Yes Nutrition screen score: 6 Nutrition Risks: Poor intake 0-25% >4 days Patient : No : No Poor oral hygiene: No service: No Current occupational status: retired Sexual orientation: Straight/Heterosexual Meds Allergies Allergy/AdvReac Type Severity Reaction Status Date / Time morphine AdvReac Severe Alternate Verified 09/27/21 10:25 mental status Active Medications: Current Medications Acetaminophen (Acetaminophen 325 Mg Tablet) 650 mg PO Q6H PRN PRN Reason: Pain, Mild (Pain Scale 1-3) Last Admin: 11/16/21 22:48 Dose: 650 mg Acetaminophen (Acetaminophen 325 Mg Tablet) 650 mg PO ONCE PRN PRN Reason: Pain, Mild (Pain Scale 1-3) Al Hydroxide/Mg Hydroxide (Magnesium Hydrox/Alum Hydrox 30 Ml Oral.Susp) 30 ml PO Q6H PRN PRN Reason: Heartburn/Nausea Amlodipine Besylate (Amlodipine Besylate 10 Mg Tablet) 10 mg PO DAILY [facility]; Protocol Last Admin: 11/17/21 09:38 Dose: 10 mg Apixaban (Apixaban 2.5 Mg Tablet) 2.5 mg PO BID [facility] Last Admin: 11/19/21 20:55 Dose: 2.5 mg Atorvastatin Calcium (Atorvastatin Calcium 40 Mg Tablet) 40 mg PO BEDTIME [facility] Last Admin: 11/19/21 20:55 Dose: 40 mg Calcium Carbonate/Cholecalciferol (Calcium + Vitamin D 250 Mg Tablet) 500 mg PO DAILY [facility] Last Admin: 11/19/21 08:20 Dose: 500 mg Digoxin (Digoxin 0.125 Mg Tablet) 0.125 mg PO [id number]@0900 [facility] Last Admin: 11/17/21 09:39 Dose: 0.125 mg Duloxetine HCl (Duloxetine Hcl 30 Mg Capsule.Dr) 30 mg PO BID [facility] Last Admin: 11/19/21 20:55 Dose: 30 mg Fluoxetine HCl (Fluoxetine Hcl Oral Solution 20 Mg/5 Ml Solution) 10 mg PO DAILY PRN PRN Reason: if pt refuses duloxetine Furosemide (Furosemide 20 Mg Tablet) 20 mg PO DAILY [facility]; Protocol Last Admin: 11/16/21 11:46 Dose: Not Given Hydroxyzine HCl (Hydroxyzine Hcl 25 Mg Tablet) 25 mg PO Q6H PRN PRN Reason: Anxiety Last Admin: 11/07/21 20:32 Dose: 25 mg Magnesium Hydroxide (Milk Of Magnesia 30 Ml Oral.Susp) 30 ml PO DAILY PRN PRN Reason: Constipation Metoprolol Tartrate (Metoprolol Tartrate 100 Mg Tablet) 100 mg PO BID [facility]; Protocol Last Admin: 11/20/21 06:21 Dose: 100 mg Mirtazapine (Mirtazapine 15 Mg Tablet) 15 mg PO BEDTIME [facility] Last Admin: 11/19/21 20:55 Dose: 15 mg Olanzapine (Olanzapine 2.5 Mg Tablet) 2.5 mg PO Q4H PRN PRN Reason: Psychosis Last Admin: 10/31/21 04:27 Dose: 2.5 mg Olanzapine (Olanzapine 2.5 Mg Tablet) 2.5 mg PO BID [facility] Last Admin: 11/19/21 20:55 Dose: 2.5 mg Ondansetron HCl (Ondansetron Hcl 4 Mg/2 Ml Vial) 4 mg IVPUSH ONCE PRN PRN Reason: Nausea and Vomiting Ondansetron HCl (Ondansetron Odt 4 Mg Tab.Rapdis) 4 mg TRANSLINGU Q6H PRN PRN Reason: Nausea Last Admin: 11/09/21 17:54 Dose: 4 mg Trazodone HCl (Trazodone Hcl 50 Mg Tablet) 50 mg PO BEDTIME PRN PRN Reason: Insomnia Last Admin: 11/19/21 20:55 Dose: 50 mg Home Medications Medication Instructions Recorded Confirmed Last Taken Type amlodipine 10 mg tablet 10 mg PO DAILY 03/16/20 10/22/21 10/22/21 History 10 mg calcium carbonate 600 mg-vitamin 1 tab PO DAILY 09/07/20 10/22/21 10/22/21 History D3 20 mcg (800 unit) tablet 1 tab (Caltrate with Vitamin D3) mirtazapine 15 mg tablet 15 mg PO BEDTIME 06/06/21 10/22/21 10/21/21 History 15 mg Exam Exam Date and Time: November 20, 2021 0710 Height,Weight and Vital Signs: Height 5 ft Weight 41.7 kg Last Vital Signs Temp 97.9 F 11/20/21 06:57 Pulse 86 11/20/21 06:57 Resp 18 11/20/21 06:57 BP 138/86 11/20/21 06:57 Pulse Ox 95 11/20/21 06:57 O2 Del Method 11/20/21 06:57 O2 Flow Rate 2 11/15/21 10:03 Pertinent Lab Results Pertinent Lab Results: Laboratory Tests 10/22/21 10/23/21 10/25/21 15:10 07:50 09:45 WBC RBC Hgb Hct MCV MCH MCHC RDW Plt Count MPV Immature Gran % (Auto) Neut % (Auto) Lymph % (Auto) [place] % (Auto) Eos % (Auto) Baso % (Auto) Lymph # (Auto) [place] # (Auto) Eos # (Auto) Baso # (Auto) Abs Immat Gran (auto) Absolute Neuts (auto) Absolute Nucleated RBC Nucleated RBC % (auto) Sodium 142 140 Potassium 4.1 4.2 Chloride 107 104 Carbon Dioxide 27 27 Anion Gap 12 13 BUN 19 H 17 H Creatinine 0.83 0.77 Estim Creat Clear Calc 35.3 37.4 Estimated GFR > 60 > 60 Random Glucose Fasting Glucose 97 101 H Calcium 9.0 9.2 Total Bilirubin 0.5 0.5 Direct Bilirubin AST 23 23 ALT 44 H 44 H Alkaline Phosphatase 55 62 Troponin I High Sens B-Natriuretic Peptide Total Protein 5.5 L 5.9 L Albumin 3.3 L 3.4 L Triglycerides 51 Cholesterol 123 LDL Cholesterol, Calc 54 HDL Cholesterol 59 Urine Color Urine Appearance Urine pH Ur Specific [place] Urine Protein Urine Glucose (UA) Urine Ketones Urine Blood Urine Nitrite Ur Leukocyte Esterase Urine RBC Urine WBC Ur Squamous Epith Cells Urine Bacteria Hyaline Casts COVID-19 ([facility]) Negative COVID-19 Clin Com See Note 11/04/21 11/04/21 11/06/21 18:25 18:25 16:05 WBC RBC Hgb Hct MCV MCH MCHC RDW Plt Count MPV Immature Gran % (Auto) Neut % (Auto) Lymph % (Auto) [place] % (Auto) Eos % (Auto) Baso % (Auto) Lymph # (Auto) [place] # (Auto) Eos # (Auto) Baso # (Auto) Abs Immat Gran (auto) Absolute Neuts (auto) Absolute Nucleated RBC Nucleated RBC % (auto) Sodium 142 Potassium 4.1 Chloride 104 Carbon Dioxide 26 Anion Gap 16 BUN 38 H D Creatinine 1.07 Estim Creat Clear Calc 28.1 Estimated GFR 49 Random Glucose 140 H Fasting Glucose Calcium 9.5 Total Bilirubin Direct Bilirubin AST ALT Alkaline Phosphatase Troponin I High Sens B-Natriuretic Peptide 681 H Total Protein Albumin Triglycerides Cholesterol LDL Cholesterol, Calc HDL Cholesterol Urine Color Yellow Urine Appearance Clear Urine pH 6.5 Ur Specific [place] 1.015 Urine Protein Negative Urine Glucose (UA) Negative Urine Ketones Negative Urine Blood Negative Urine Nitrite Negative Ur Leukocyte Esterase Small (1+) H Urine RBC 0-2 Urine WBC 6-10 H Ur Squamous Epith Cells 0-2 Urine Bacteria None Seen Hyaline Casts 0-2 COVID-19 ([facility]) COVID-19 Clin Com 11/07/21 11/16/21 11/16/21 08:09 13:37 13:37 WBC 7.8 RBC 3.80 L Hgb 11.5 L Hct 35.8 L MCV 94.2 MCH 30.3 MCHC 32.1 RDW 13.8 Plt Count 263 D MPV 10.5 Immature Gran % (Auto) 0.4 Neut % (Auto) 64.8 Lymph % (Auto) 28.9 [place] % (Auto) 4.1 Eos % (Auto) 1.0 Baso % (Auto) 0.8 Lymph # (Auto) 2.3 [place] # (Auto) 0.3 Eos # (Auto) 0.1 Baso # (Auto) 0.1 Abs Immat Gran (auto) 0.03 Absolute Neuts (auto) 5.1 Absolute Nucleated RBC 0.000 Nucleated RBC % (auto) 0.0 Sodium 142 Potassium 4.0 Chloride 105 Carbon Dioxide 25 Anion Gap 16 BUN 19 H Creatinine 0.72 Estim Creat Clear Calc 41.7 Estimated GFR > 60 Random Glucose 96 Fasting Glucose Calcium 9.2 Total Bilirubin Direct Bilirubin AST ALT Alkaline Phosphatase Troponin I High Sens 13.3 B-Natriuretic Peptide Total Protein Albumin Triglycerides Cholesterol LDL Cholesterol, Calc HDL Cholesterol Urine Color Urine Appearance Urine pH Ur Specific [place] Urine Protein Urine Glucose (UA) Urine Ketones Urine Blood Urine Nitrite Ur Leukocyte Esterase Urine RBC Urine WBC Ur Squamous Epith Cells Urine Bacteria Hyaline Casts COVID-19 ([facility]) COVID-19 Clin Com 0911/16/21 11/16/21 13:37 15:25 19:50 WBC RBC Hgb Hct MCV MCH MCHC RDW Plt Count MPV Immature Gran % (Auto) Neut % (Auto) Lymph % (Auto) [place] % (Auto) Eos % (Auto) Baso % (Auto) Lymph # (Auto) [place] # (Auto) Eos # (Auto) Baso # (Auto) Abs Immat Gran (auto) Absolute Neuts (auto) Absolute Nucleated RBC Nucleated RBC % (auto) Sodium 140 Potassium 5.1 D Chloride 107 Carbon Dioxide 24 Anion Gap 14 BUN 41 H D Creatinine 1.27 Estim Creat Clear Calc 22.4 Estimated GFR 40 Random Glucose 90 Fasting Glucose Calcium 9.5 Total Bilirubin 0.4 Direct Bilirubin 0.2 AST 19 ALT 37 H Alkaline Phosphatase 62 Troponin I High Sens B-Natriuretic Peptide Total Protein 6.1 L Albumin 3.6 Triglycerides Cholesterol LDL Cholesterol, Calc HDL Cholesterol Urine Color Yellow Urine Appearance Clear Urine pH 6.5 Ur Specific [place] 1.015 Urine Protein Negative Urine Glucose (UA) Negative Urine Ketones Negative Urine Blood Negative Urine Nitrite Negative Ur Leukocyte Esterase Moderate (2+) H Urine RBC 0-2 Urine WBC 0-5 Ur Squamous Epith Cells 0-2 Urine Bacteria None Seen Hyaline Casts 0-2 COVID-19 ([facility]) Negative COVID-19 Clin Com See Note 11/17/21 11/17/21 11/18/21 08:19 15:32 11:01 WBC RBC Hgb Hct MCV MCH MCHC RDW Plt Count MPV Immature Gran % (Auto) Neut % (Auto) Lymph % (Auto) [place] % (Auto) Eos % (Auto) Baso % (Auto) Lymph # (Auto) [place] # (Auto) Eos # (Auto) Baso # (Auto) Abs Immat Gran (auto) Absolute Neuts (auto) Absolute Nucleated RBC Nucleated RBC % (auto) Sodium 140 140 139 Potassium 4.6 4.9 4.3 Chloride 108 106 106 Carbon Dioxide 24 24 22 Anion Gap 13 15 15 BUN 27 H 36 H 33 H Creatinine 1.00 1.15 1.00 Estim Creat Clear Calc 28.5 24.8 28.5 Estimated GFR 53 45 53 Random Glucose 95 143 H 142 H Fasting Glucose Calcium 9.5 9.1 9.0 Total Bilirubin Direct Bilirubin AST ALT Alkaline Phosphatase Troponin I High Sens B-Natriuretic Peptide Total Protein Albumin Triglycerides Cholesterol LDL Cholesterol, Calc HDL Cholesterol Urine Color Urine Appearance Urine pH Ur Specific [place] Urine Protein Urine Glucose (UA) Urine Ketones Urine Blood Urine Nitrite Ur Leukocyte Esterase Urine RBC Urine WBC Ur Squamous Epith Cells Urine Bacteria Hyaline Casts COVID-19 ([facility]) COVID-19 Clin Com Airway Mallampati Class: II (Chipped front tooth) TM Dist: >3cm Neck ROM: Full Heart: rrr Lungs: cta Assessment and Plan Assessment Anesthesia Assessment: Anesthesia Plan Discussed and Chart Reviewed Final Anesthetic Review Family History of Problems with Anesthesia: No History of Problems with Anesthesia: No NPO: Yes ASA Class: III Final Preanesthetic Review: No Changes in Pt Med Stat, Meds/Allgs Chart Reviewed and Consent Obtained/Reviewed Patient Risk: Intermediate Procedure Risk: Intermediate Anesthetic Plan Anesthetic Plan: GA Disposition: Standard PACU
--- NOTE | 2021-11-20 07:15 | MHC.SHP ---
Pre-Procedural Eval Section A Date of Service: 11/20/21 The patient is an INPATIENT: Yes Changes since office visit: No Cold of Flu in the past 2 weeks, No New Medical Problems, No Changes in Medication and No Patient answered all questions The History & Physical has been completed within 30 days and I have reviewed it.: Yes Section B Chief Complaint: Depression Allergies: Allergies Allergy/AdvReac Type Severity Reaction Status Date / Time morphine AdvReac Severe Alternate Verified 09/27/21 10:25 mental status Plan I have reviewed the history and physical and performed a pertinent physical examination on my patient. No changes have occurred unless specified.
--- NOTE | 2021-11-20 08:14 | HO.ECTPROC ---
ECT Procedure Note Diagnosis/Treatment Date of Service: 11/20/21 Diagnosis: Major Depressive Disorder Previous ECT Date: 11/15/21 Current Treatment Number: 8 Treatment: Series Interval Clinical Notes: Patient has been less dysphoric but physically tired. Last week she was dehydrated and needed IV fluids. Mood less dysphoric ECT Settings Device: THYMATRON DGx Electrode Placement: Right Unilateral Program/Pulse Width: 0.25 Energy Percent: 100 Seizure Duration By EEG (in seconds): 33 By Motor Observation (in seconds): 23 Medications Administration General Anesthetic: Etomidate (60) Muscle Relaxant: Succinylcholine (80) Ancillary Medications Analgesics: Torodol - Pre ECT Anti-emetics: Zofran - Pre ECT Miscillaneous Medications: Propofol Airway Management Airway Management: Bag Mask Ventilation Treatment Recommendations No Changes Recommended: No change Pt Tolerated Procedure w/o Issue: Yes
[2021-11-20] MEDS: Apixaban 2.5 MG TABLET PO ×2 (10:20→21:49)
[2021-11-20] MEDS: Calcium + Vitamin D 250 MG TABLET 500 MG PO (10:20)
[2021-11-20] MEDS: DULoxetine HCl 30 MG CAPSULE.DR PO ×2 (10:21→21:48)
[2021-11-20] MEDS: OLANZapine 2.5 MG TABLET PO ×2 (10:21→21:48)
--- NOTE | 2021-11-20 14:02 | P.PNPSI_ITS ---
Subjective Subjective Date of Service: 11/20/21 Reason For Visit: Depression Subjective Notes: Conditional Voluntary Interim History: the nursing staff reported the patient had been compliant with treatment. Her amlodipine and the retic was discontinued due to the heat rotation. Today we had ECT and the patient denies new symptoms she looks slightly hypoactive. After ECT the patient was reassessed and she reported that she had a mild confusion after the procedure but overall she is feeling okay Mental Status Exam Mental Status Exam Patient Appearance: Well Grooomed Patient Orientation: Person and Situation Level of Consciousness: Awake Patient Behavior: Cooperative Mood Description: Constricted Affect Description: Calm Patient Cognition Impaired: Yes Ability to Follow Directions: Good Speech Pattern: Clear Hallucinations: None Delusions: Not Present Thought Process: Distracted Thought Content: positive for [place] Judgement: Fair Diagnostics Vital Signs (24Hr): Vital Signs - 24 hr 11/20/21 06:39 11/20/21 06:57 11/20/21 08:19 Temperature 97.6 F 97.9 F 97.9 F Pulse Rate 100 86 96 Respiratory Rate 16 18 14 Blood Pressure 144/76 H 138/86 154/94 H Pulse Oximetry 96 95 100 Oxygen Delivery Method Room Air Room Air Nasal Cannula Oxygen Flow Rate 2 11/20/21 08:24 11/20/21 08:29 11/20/21 08:34 Temperature Pulse Rate 77 77 82 Respiratory Rate 17 11 L 16 Blood Pressure 156/82 H 137/78 152/74 H Pulse Oximetry 98 97 96 Oxygen Delivery Method Nasal Cannula Nasal Cannula Room Air Oxygen Flow Rate 2 2 11/20/21 08:49 11/20/21 08:59 11/20/21 09:13 Temperature Pulse Rate 78 75 66 Respiratory Rate 16 17 17 Blood Pressure 135/79 149/77 H 146/73 H Pulse Oximetry 95 95 95 Oxygen Delivery Method Room Air Room Air Room Air Oxygen Flow Rate 11/20/21 09:32 Temperature 97.9 F Pulse Rate 76 Respiratory Rate 15 Blood Pressure 156/58 H Pulse Oximetry 95 Oxygen Delivery Method Room Air Oxygen Flow Rate BMI result Body Mass Index 17.9 Labs Results: 11/16/21 13:37 11/18/21 11:01 Imaging Radiology Impressions: ITS Impressions Venous Duplex 11/05/21 14:21 IMPRESSION: No DVT demonstrated in the left lower extremity. Medications Medications Current Medications Acetaminophen (Acetaminophen 325 Mg Tablet) 650 mg PO Q6H PRN PRN Reason: Pain, Mild (Pain Scale 1-3) Last Admin: 11/16/21 22:48 Dose: 650 mg Acetaminophen (Acetaminophen 325 Mg Tablet) 650 mg PO ONCE PRN PRN Reason: Pain, Mild (Pain Scale 1-3) Al Hydroxide/Mg Hydroxide (Magnesium Hydrox/Alum Hydrox 30 Ml Oral.Susp) 30 ml PO Q6H PRN PRN Reason: Heartburn/Nausea Amlodipine Besylate (Amlodipine Besylate 10 Mg Tablet) 10 mg PO DAILY [facility]; Protocol Last Admin: 11/17/21 09:38 Dose: 10 mg Apixaban (Apixaban 2.5 Mg Tablet) 2.5 mg PO BID [facility] Last Admin: 11/20/21 10:20 Dose: 2.5 mg Atorvastatin Calcium (Atorvastatin Calcium 40 Mg Tablet) 40 mg PO BEDTIME [facility] Last Admin: 11/19/21 20:55 Dose: 40 mg Calcium Carbonate/Cholecalciferol (Calcium + Vitamin D 250 Mg Tablet) 500 mg PO DAILY [facility] Last Admin: 11/20/21 10:20 Dose: 500 mg Digoxin (Digoxin 0.125 Mg Tablet) 0.125 mg PO [id number]@0900 [facility] Last Admin: 11/17/21 09:39 Dose: 0.125 mg Duloxetine HCl (Duloxetine Hcl 30 Mg Capsule.Dr) 30 mg PO BID [facility] Last Admin: 11/20/21 10:21 Dose: 30 mg Fluoxetine HCl (Fluoxetine Hcl Oral Solution 20 Mg/5 Ml Solution) 10 mg PO DAILY PRN PRN Reason: if pt refuses duloxetine Furosemide (Furosemide 20 Mg Tablet) 20 mg PO DAILY [facility]; Protocol Last Admin: 11/16/21 11:46 Dose: Not Given Hydroxyzine HCl (Hydroxyzine Hcl 25 Mg Tablet) 25 mg PO Q6H PRN PRN Reason: Anxiety Last Admin: 11/07/21 20:32 Dose: 25 mg Magnesium Hydroxide (Milk Of Magnesia 30 Ml Oral.Susp) 30 ml PO DAILY PRN PRN Reason: Constipation Metoprolol Tartrate (Metoprolol Tartrate 100 Mg Tablet) 100 mg PO BID [facility]; Protocol Last Admin: 11/20/21 06:21 Dose: 100 mg Mirtazapine (Mirtazapine 15 Mg Tablet) 15 mg PO BEDTIME [facility] Last Admin: 11/19/21 20:55 Dose: 15 mg Olanzapine (Olanzapine 2.5 Mg Tablet) 2.5 mg PO Q4H PRN PRN Reason: Psychosis Last Admin: 10/31/21 04:27 Dose: 2.5 mg Olanzapine (Olanzapine 2.5 Mg Tablet) 2.5 mg PO BID [facility] Last Admin: 11/20/21 10:21 Dose: 2.5 mg Ondansetron HCl (Ondansetron Hcl 4 Mg/2 Ml Vial) 4 mg IVPUSH ONCE PRN PRN Reason: Nausea and Vomiting Ondansetron HCl (Ondansetron Odt 4 Mg Tab.Rapdis) 4 mg TRANSLINGU Q6H PRN PRN Reason: Nausea Last Admin: 11/09/21 17:54 Dose: 4 mg Trazodone HCl (Trazodone Hcl 50 Mg Tablet) 50 mg PO BEDTIME PRN PRN Reason: Insomnia Last Admin: 11/19/21 20:55 Dose: 50 mg Allergies Allergies Allergy/AdvReac Type Severity Reaction Status Date / Time morphine AdvReac Severe Alternate Verified 09/27/21 10:25 mental status Assessment & Plan Assessment & Plan (1) NATE (acute kidney injury): Status: Acute Code(s): N17.9 - Acute kidney failure, unspecified Plan This is an 81 yo F with multiple medical problems including permanant A. fib on OAC, chronic HFpEF, HTN, ocular melanoma, dementia, depression/anxiety who is admitted to the inpatient [facility]. Medical consult requested for change in her overall clinical status. The patient has been receiving scheduled ECTs. 1. Acute changes in behavior/mental status Routine CBC, CMP, UA have been ordered. Will also add troponins On exam -- she does not have any focal deficits. Unclear if this is related to ECTs vs underlying dementia. I would hold off on ECT until we can figure out what exactly is causing her acute changes. If the above work up is negative, may need to consider neurology consultation For her chronic A. Fib / other medical diagnoses. They appear at baseline. Would continue with the current regime. Additionally - pt has received 10 days of Bactrim. (This was for UTI per d/w Dr. Medina). Will d/c it. Addendum: Repeat labs reviewed -- noted BUN/SCr have increased from prior values. Appears to be dry. Recommend oral hydration and if able, gentle IVF (80 cc/hr x 24 hours). Will hold lasix for the next couple of days. Repeat labs in 48 hours or so. Trop-I decreased from prior. Continue same treatment ready for discharge next Saturday I spent __20____ minutes with the patient and/or on the patient floor today, greater than?50% of which was spent counseling/coordinating care. Reason for contiued inpatient stay Substantial Risk for: inability to function, rapid decompensation and med/psych decompensation
[2021-11-20] MEDS: Atorvastatin Calcium 40 MG TABLET PO (21:48)
[2021-11-20] MEDS: Mirtazapine 15 MG TABLET PO (21:48)
[2021-11-20] MEDS: traZODone HCL 50 MG TABLET PO (21:49)
[2021-11-21] MEDS: traZODone HCL 50 MG TABLET PO (01:54)
[2021-11-21] MEDS: hydrOXYzine HCL 25 MG TABLET PO ×2 (01:55→11:40)
[2021-11-21] MEDS: OLANZapine 2.5 MG TABLET PO (09:43)
[2021-11-21] MEDS: Metoprolol Tartrate 100 MG TABLET PO (09:43)
[2021-11-21] MEDS: Calcium + Vitamin D 250 MG TABLET 500 MG PO (09:43)
[2021-11-21] MEDS: Digoxin 0.125 MG TABLET PO (09:43)
[2021-11-21] MEDS: DULoxetine HCl 30 MG CAPSULE.DR PO (09:43)
[2021-11-21] MEDS: Apixaban 2.5 MG TABLET PO (09:43)
--- NOTE | 2021-11-21 11:03 | PM.PSYDC ---
DS: Providers Provider Date of Service: 11/21/21 Date of admission: 10/22/21 14:40 Primary care physician: Unknown Physician Consults: 11/16/21 10:58 Consult to Hospitalist Routine Consulting Provider: Hospitalist Reason For Exam: a-fib DS: Diagnosis Discharge Diagnosis (1) NATE (acute kidney injury): Status: Acute DS: Medications Discharge Medications Home Medications: Home Medications Medication Instructions Recorded Confirmed amlodipine 10 mg tablet 10 mg PO DAILY 03/16/20 10/22/21 mirtazapine 15 mg tablet 15 mg PO BEDTIME 06/06/21 10/22/21 Previous Rx's Medication Instructions Recorded clonazepam 0.5 mg tablet 0.25 mg PO BID #0 tabs 10/22/21 duloxetine 30 mg capsule,delayed 30 mg PO BID #1 cap 10/22/21 release fluoxetine 20 mg/5 mL (4 mg/mL) 10 mg (2.5 mL) PO DAILY PRN if pt 10/22/21 oral solution refuses duloxetine #250 mL olanzapine 2.5 mg tablet 2.5 mg PO BEDTIME #30 tabs 10/22/21 acetaminophen 325 mg tablet 650 mg PO Q6H PRN Pain, Mild (Pain 11/20/21 Scale 1-3) 30 days #60 tabs apixaban 2.5 mg tablet (Eliquis) 2.5 mg PO BID 30 days #60 tabs 11/20/21 atorvastatin 40 mg tablet 40 mg PO BEDTIME #30 tabs 11/20/21 calcium carbonate 600 mg-vitamin 1 tab PO DAILY 30 days #30 tabs 11/20/21 D3 20 mcg (800 unit) tablet (Caltrate with Vitamin D3) digoxin 125 mcg (0.125 mg) tablet 125 mcg PO FR 90 days #52 11/20/21 tabs duloxetine 30 mg capsule,delayed 30 mg PO BID 30 days #60 caps 11/20/21 release fluoxetine 20 mg/5 mL (4 mg/mL) 10 mg (2.5 mL) PO DAILY PRN if pt 11/20/21 oral solution refuses duloxetine 30 days #75 mL metoprolol tartrate 100 mg tablet 100 mg PO BID 90 days #180 tabs 11/20/21 mirtazapine 15 mg tablet 15 mg PO BEDTIME #30 tabs 11/20/21 olanzapine 2.5 mg tablet 2.5 mg PO BID #60 tabs 11/20/21 trazodone 50 mg tablet 50 mg PO BEDTIME PRN Insomnia 30 11/20/21 days #30 tabs Mental Status Exam Mental Status Exam Patient Appearance: Well Grooomed Patient Orientation: Person and Situation Level of Consciousness: Awake Patient Behavior: Cooperative Mood Description: Constricted Affect Description: Calm Patient Cognition Impaired: Yes Ability to Follow Directions: Good Speech Pattern: Clear Memory Description: Intact Hallucinations: None Delusions: Not Present Thought Process: Distracted Thought Content: positive for [place] and positive for Poverty of Content Judgement: Fair Data Data Completed and Pending Completed studies during hospitalization [Text1]: 11/16/21 11/16/21 11/16/21 13:37 13:37 13:37 WBC 7.8 RBC 3.80 L Hgb 11.5 L Hct 35.8 L MCV 94.2 MCH 30.3 MCHC 32.1 RDW 13.8 Plt Count 263 D MPV 10.5 Immature Gran % (Auto) 0.4 Neut % (Auto) 64.8 Lymph % (Auto) 28.9 [place] % (Auto) 4.1 Eos % (Auto) 1.0 Baso % (Auto) 0.8 Lymph # (Auto) 2.3 [place] # (Auto) 0.3 Eos # (Auto) 0.1 Baso # (Auto) 0.1 Abs Immat Gran (auto) 0.03 Absolute Neuts (auto) 5.1 Absolute Nucleated RBC 0.000 Nucleated RBC % (auto) 0.0 Sodium 140 Potassium 5.1 D Chloride 107 Carbon Dioxide 24 Anion Gap 14 BUN 41 H D Creatinine 1.27 Estim Creat Clear Calc 22.4 Estimated GFR 40 Random Glucose 90 Calcium 9.5 Total Bilirubin 0.4 Direct Bilirubin 0.2 AST 19 ALT 37 H Alkaline Phosphatase 62 Troponin I High Sens 13.3 Total Protein 6.1 L Albumin 3.6 Urine Color Urine Appearance Urine pH Ur Specific [place] Urine Protein Urine Glucose (UA) Urine Ketones Urine Blood Urine Nitrite Ur Leukocyte Esterase Urine RBC Urine WBC Ur Squamous Epith Cells Urine Bacteria Hyaline Casts COVID-19 ([facility]) COVID-19 Clin Com 11/16/21 11/16/21 11/17/21 15:25 19:50 08:19 WBC RBC Hgb Hct MCV MCH MCHC RDW Plt Count MPV Immature Gran % (Auto) Neut % (Auto) Lymph % (Auto) [place] % (Auto) Eos % (Auto) Baso % (Auto) Lymph # (Auto) [place] # (Auto) Eos # (Auto) Baso # (Auto) Abs Immat Gran (auto) Absolute Neuts (auto) Absolute Nucleated RBC Nucleated RBC % (auto) Sodium 140 Potassium 4.6 Chloride 108 Carbon Dioxide 24 Anion Gap 13 BUN 27 H Creatinine 1.00 Estim Creat Clear Calc 28.5 Estimated GFR 53 Random Glucose 95 Calcium 9.5 Total Bilirubin Direct Bilirubin AST ALT Alkaline Phosphatase Troponin I High Sens Total Protein Albumin Urine Color Yellow Urine Appearance Clear Urine pH 6.5 Ur Specific [place] 1.015 Urine Protein Negative Urine Glucose (UA) Negative Urine Ketones Negative Urine Blood Negative Urine Nitrite Negative Ur Leukocyte Esterase Moderate (2+) H Urine RBC 0-2 Urine WBC 0-5 Ur Squamous Epith Cells 0-2 Urine Bacteria None Seen Hyaline Casts 0-2 COVID-19 ([facility]) Negative COVID-19 Clin Com See Note 11/17/21 11/18/21 15:32 11:01 WBC RBC Hgb Hct MCV MCH MCHC RDW Plt Count MPV Immature Gran % (Auto) Neut % (Auto) Lymph % (Auto) [place] % (Auto) Eos % (Auto) Baso % (Auto) Lymph # (Auto) [place] # (Auto) Eos # (Auto) Baso # (Auto) Abs Immat Gran (auto) Absolute Neuts (auto) Absolute Nucleated RBC Nucleated RBC % (auto) Sodium 140 139 Potassium 4.9 4.3 Chloride 106 106 Carbon Dioxide 24 22 Anion Gap 15 15 BUN 36 H 33 H Creatinine 1.15 1.00 Estim Creat Clear Calc 24.8 28.5 Estimated GFR 45 53 Random Glucose 143 H 142 H Calcium 9.1 9.0 Total Bilirubin Direct Bilirubin AST ALT Alkaline Phosphatase Troponin I High Sens Total Protein Albumin Urine Color Urine Appearance Urine pH Ur Specific [place] Urine Protein Urine Glucose (UA) Urine Ketones Urine Blood Urine Nitrite Ur Leukocyte Esterase Urine RBC Urine WBC Ur Squamous Epith Cells Urine Bacteria Hyaline Casts COVID-19 ([facility]) COVID-19 Clin Com 11/06/21 17:50 Urine clean catch - Urine lao top Urine Culture - Final Imaging Diagnostic Imaging Impressions Venous Duplex 11/05/21 14:21 IMPRESSION: No DVT demonstrated in the left lower extremity. DS: Summary Hospital Course Hospital Course: The patient was admitted for exacerbation of depression with neurovegetative symptoms and worsening of cognition. Please see the HPI of the admission note for further details. On admission, the patient was very dysphoric. We review his medications and start changing it such as increasing the Cymbalta and adding Remeron since the patient complain of severe insomnia. Also the patient was cognitively impaired and she scored very low her [place]. We discussed at length risks, benefits, side-effects and alternatives regarding the treatment of depression and eventually she agreed to have ECT. Initially we schedule 12 sessions but after the 1st ECT the patient was very confused so we decided to do ECT twice a week. During the course of the admission, the patient had UTI and needed to be treated with Bactrim. At the end of the admission, the patient felt very tired and a consult with Medicine and Cardiology was ordered. The needed to change her medications for blood pressure that was worsening his vital signs. After that medication change, her vital signs improved and she was less tired. The patient's mood improved remarkably her affect was full and appropriate and she was able to participate in all the groups and therapeutic activities in the unit. Since there were no safety concerns discharge planning was discussed. Regarding discharge planning, the family and the patient agreed to go to an assisted living facility. Time spent discussing smoking cessation with patient: 3 to 10 minutes Status at Discharge Cognitive/behavioral status at discharge: At baseline Functional status at discharge: independent ambulation Overall status at discharge: patient is back to baseline Time Spent with Patient Time attestation: Total time spent providing and/or coordinating discharge services: Time spent: Less than 30 minutes Discharge Plan Discharge Patient Disposition: [facility] Discharge Diagnosis: Major depressive disorder Dementia Referrals: Richard Ortiz MD [Physician] - 11/28/21 2:40 pm Discharge Medications: New fluoxetine 20 mg/5 mL (4 mg/mL) Solution 10 mg PO DAILY PRN (Reason: if pt refuses duloxetine) 30 Days Qty: 75 0RF acetaminophen 325 mg Tablet 650 mg PO Q6H PRN (Reason: Pain, Mild (Pain Scale 1-3)) 30 Days Qty: 60 0RF trazodone 50 mg Tablet 50 mg PO BEDTIME PRN (Reason: Insomnia) 30 Days Qty: 30 0RF olanzapine 2.5 mg Tablet 2.5 mg PO BID Qty: 60 0RF mirtazapine 15 mg Tablet 15 mg PO BEDTIME Qty: 30 0RF duloxetine 30 mg Capsule,Delayed Release(Dr/Ec) 30 mg PO BID 30 Days Qty: 60 0RF Continued atorvastatin 40 mg tablet 40 mg PO BEDTIME Qty: 30 5RF metoprolol tartrate 100 mg tablet 100 mg PO BID 90 Days Qty: 180 3RF digoxin 125 mcg (0.125 mg) tablet 125 mcg PO WE 90 Days Qty: 52 3RF Rx Instructions: Please call and schedule an appt calcium carbonate-vitamin D3 [Caltrate with Vitamin D3] 600 mg(1,500mg) -800 unit Tablet 1 tab PO DAILY 30 Days Qty: 30 0RF Eliquis 2.5 mg tablet 2.5 mg PO BID 30 Days Qty: 60 5RF Discontinued clonazepam 0.5 mg Tablet 0.25 mg PO BID Qty: 0 0RF duloxetine 30 mg Capsule,Delayed Release(Dr/Ec) 30 mg PO BID Qty: 1 0RF fluoxetine 20 mg/5 mL (4 mg/mL) Solution 10 mg PO DAILY PRN (Reason: if pt refuses duloxetine) Qty: 250 0RF olanzapine 2.5 mg Tablet 2.5 mg PO BEDTIME Qty: 30 0RF amlodipine 10 mg tablet 10 mg PO DAILY mirtazapine 15 mg tablet 15 mg PO BEDTIME Discharge Orders: Discharge Order (Routine); Ordered 11/21/21 Ordered By: Daryl Medina Diet: Advance to usual diet Activity on Discharge: As tolerated Stand Alone Forms: Patient Portal Discharge page Care Plan Goals: care plan goals achieved in this admission Health Concerns: continue treatment by outpatient providers Plan of Treatment: continue medication management as an outpatient Assessment: elderly female with a long history of depression and dementia was brought into the facility for exacerbation of depression. The patient responded to medication management and ECT, currently ready to be discharged to long-term facility.
--- NOTE | 2021-11-21 12:23 | PC.NURSE ---
Pt discharged from the floor today at 1220 via stretcher to the atrium. The pt had all her belongings, and the discharge paperwork. The pt reported I am a little anxious , pt medicated with prn hydroxyzine before lunch.
== END 2021-11-21 12:20 | DRG 885 ==
PROVIDERS: Physician Assistant; Psychiatry & Neurology Psychiatry; Admitting Provider Family Medicine; Visit Provider Psychiatry & Neurology Psychiatry
PROC: GZB4ZZZ Other Electroconvulsive Therapy (ICD-10-PCS; CPT 90870; principal; 2021-10-27 15:20)
PROC: (CPT 90870; principal; 2021-11-01 07:00)
DX: F33.2 Major depressive disorder, recurrent severe without psychotic features (principal); I48.19 Other persistent atrial fibrillation; I50.32 Chronic diastolic (congestive) heart failure; I48.91 Unspecified atrial fibrillation; K21.9 Gastro-esophageal reflux disease without esophagitis; I11.0 Hypertensive heart disease with heart failure; Z20.822 Contact with and (suspected) exposure to COVID-19; Z79.01 Long term (current) use of anticoagulants; Z79.899 Other long term (current) drug therapy
CPT/HCPCS: 36415; 80048; 80053; 80061; 80076; 81001; 83880; 84484; 85025; 87086; 87635; 90870; 93005; 93971; J0330; J2250; J2405

== ENCOUNTER 2021-12-01 05:57 | Day surgery (SDC) | payer MEDICARE, OTHER, SELFPAY ==
[2021-12-01] VITALS (9 sets, daily range): BP systolic 153–189; BP diastolic 90–111; PULSE 79–128; RESP 16–23; TEMP 36.4; O2SAT 90–97
[2021-12-01 06:39] LABS: COVID-19 Test Negative (Negative)
--- NOTE | 2021-12-01 06:42 | HO.ANESPROP2 ---
[facility] Active Problems Active Problems: All Active Problems (Updated 11/29/21 @ 00:02 by Treva Gonzalez) Major depressive disorder, recurrent severe without psychotic features (Acute) Atrial fibrillation with rapid ventricular response (Acute) Major depressive disorder (Acute) Delusion (Acute) Dementia (Acute) Compression fracture of T9 vertebra (Acute) E coli bacteremia (Acute) Ocular melanoma (Acute) Delusions (Acute) Bacteriuria (Acute) Depression (Acute) Diarrhea (Acute) Uncontrolled hypertension (Acute) Acute diastolic heart failure (Acute) Pleural effusion (Acute) Pleural effusion (Acute) Hemopneumothorax (Acute) Fall (Acute) Fracture, rib (Acute ~02/2020) Atrial fibrillation with rapid ventricular response (Acute) HTN (hypertension) (Acute) Past Medical History Medical History Anxiety Atrial fibrillation with controlled ventricular rate Dementia Depression Diastolic heart failure GERD (gastroesophageal reflux disease) History of rib fracture HTN (hypertension) Major depressive disorder, 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 Father No problems noted. Family history of problems with anesthesia: No Surgical History Surgical History No pertinent past surgical history History of Problems with Anesthesia: No Social History Social History Household Members: Family Household Members Other:: Son, Akil Joe Housing: House Housing Other:: [facility] Do you presently have visiting nurse or other home services: Yes (VNA services) Unable to assess alcohol history related to: Unable to respond Alcohol intake: never Patient Tobacco Use Status: Never used Tobacco Second Hand Smoke Exposure: No Advance Directives: Yes Advance Directives on File: Yes Advance Directives Date on File: 04/19/21 service: No Current occupational status: retired Sexual orientation: Straight/Heterosexual Meds Allergies Allergy/AdvReac Type Severity Reaction Status Date / Time morphine AdvReac Severe Alternate Verified 09/27/21 10:25 mental status Exam Exam Date and Time: December 01, 2021 0642 Pertinent Lab Results Pertinent Lab Results: Laboratory Tests 12/01/21 06:11 COVID-19 ([facility]) Negative COVID-19 Clin Com See Note Airway Mallampati Class: II TM Dist: >3cm Neck ROM: Full Heart: rrr Lungs: cta Assessment and Plan Assessment Anesthesia Assessment: Anesthesia Plan Discussed and Chart Reviewed Final Anesthetic Review Family History of Problems with Anesthesia: No History of Problems with Anesthesia: No NPO: Yes ASA Class: III Final Preanesthetic Review: No Changes in Pt Med Stat, Meds/Allgs Chart Reviewed and Consent Obtained/Reviewed Patient Risk: Intermediate Procedure Risk: Intermediate Anesthetic Plan Anesthetic Plan: GA Disposition: Standard PACU
--- NOTE | 2021-12-01 07:25 | MHC.SHP ---
Pre-Procedural Eval Section A Date of Service: 12/01/21 The patient is an INPATIENT: No Changes since office visit: No Cold of Flu in the past 2 weeks, No New Medical Problems, No Changes in Medication and No Patient answered all questions The History & Physical has been completed within 30 days and I have reviewed it.: Yes Section B Chief Complaint: depression disorder Allergies: Allergies Allergy/AdvReac Type Severity Reaction Status Date / Time morphine AdvReac Severe Alternate Verified 09/27/21 10:25 mental status Plan I have reviewed the history and physical and performed a pertinent physical examination on my patient. No changes have occurred unless specified.
--- NOTE | 2021-12-01 07:41 | HO.ECTPROC ---
ECT Procedure Note Diagnosis/Treatment Date of Service: 12/01/21 Diagnosis: Major Depressive Disorder Previous ECT Date: 11/15/21 Current Treatment Number: 9 Treatment: Maintenance Interval Clinical Notes: The patient has been more dysphoric, her son signed CV and consents. She feels depressed, with less energy. ECT Settings Device: THYMATRON DGx Electrode Placement: Right Unilateral Program/Pulse Width: 0.50 Energy Percent: 100 Seizure Duration By EEG (in seconds): 55 By Motor Observation (in seconds): 31 Medications Administration General Anesthetic: Etomidate (60) Muscle Relaxant: Succinylcholine (80) Ancillary Medications Anti-emetics: Zofran - Pre ECT Airway Management Airway Management: Bag Mask Ventilation Treatment Recommendations Notes: Patient went into v-tach over 180 and resolved with esmolol. She will need cardiology assessment for further ECT. treatments. I spoke with her son and explained the issue. Pt Tolerated Procedure w/o Issue: No
--- NOTE | 2021-12-01 07:55 | ECG_ITS ---
Test Reason : afib with rvr Blood Pressure : / mmHG Vent. Rate : 129 BPM Atrial Rate : 000 BPM P-R Int : 000 ms QRS Dur : 092 ms QT Int : 344 ms P-R-T Axes : 000 -71 107 degrees QTc Int : 503 ms Atrial fibrillation with rapid ventricular response Left axis deviation Incomplete right bundle branch block Anteroseptal infarct (cited on or before 29-MAR-2020) ST depression, consider subendocardial injury Lateral leads Abnormal ECG When compared with ECG of 17-NOV-2021 09:30, Criteria for Inferior infarct are no longer Present ST now depressed in Lateral leads Nonspecific T wave abnormality no longer evident in Anterior leads Heart rate has increased Referred By: Daryl Medina Electronically Signed By:JUSTIN WILCOX
== END 2021-12-01 09:42 | disposition home or self-care (01) ==
PROVIDERS: Visit Provider Psychiatry & Neurology Psychiatry
PROC: (CPT 90870; principal; 2021-12-01 08:00)
DX: F33.2 Major depressive disorder, recurrent severe without psychotic features (principal); F41.1 Generalized anxiety disorder; I11.0 Hypertensive heart disease with heart failure; I50.30 Unspecified diastolic (congestive) heart failure; I48.19 Other persistent atrial fibrillation; F03.90 Unspecified dementia, unspecified severity, without behavioral disturbance, psychotic disturbance, mood disturbance, and anxiety; Z79.01 Long term (current) use of anticoagulants; Z88.8 Allergy status to other drugs, medicaments and biological substances; Z79.899 Other long term (current) drug therapy; Z20.822 Contact with and (suspected) exposure to COVID-19
CPT/HCPCS: 87635; 90870; 93005; J0330; J2405

== ENCOUNTER 2021-12-08 06:00 | Day surgery (SDC) | payer MEDICARE, OTHER, SELFPAY ==
[2021-12-08] VITALS (12 sets, daily range): BP systolic 153–190; BP diastolic 92–120; PULSE 91–120; RESP 12–20; TEMP 36.3–37.1; O2SAT 91–96; BMI 21.4
[2021-12-08 06:40] LABS: COVID-19 Test Negative (Negative); IDNOW Serial# 16C4AD1C
--- NOTE | 2021-12-08 06:42 | HO.ANESPROP2 ---
[facility] Active Problems Active Problems: All Active Problems (Updated 11/29/21 @ 00:02 by Treva Gonzalez) Major depressive disorder, recurrent severe without psychotic features (Acute) Atrial fibrillation with rapid ventricular response (Acute) Major depressive disorder (Acute) Delusion (Acute) Dementia (Acute) Compression fracture of T9 vertebra (Acute) E coli bacteremia (Acute) Ocular melanoma (Acute) Delusions (Acute) Bacteriuria (Acute) Depression (Acute) Diarrhea (Acute) Uncontrolled hypertension (Acute) Acute diastolic heart failure (Acute) Pleural effusion (Acute) Pleural effusion (Acute) Hemopneumothorax (Acute) Fall (Acute) Fracture, rib (Acute ~02/2020) Atrial fibrillation with rapid ventricular response (Acute) HTN (hypertension) (Acute) Past Medical History Medical History Anxiety Atrial fibrillation with controlled ventricular rate Dementia Depression Diastolic heart failure GERD (gastroesophageal reflux disease) History of rib fracture HTN (hypertension) Major depressive disorder, 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 Father No problems noted. Family history of problems with anesthesia: No Surgical History Surgical History No pertinent past surgical history History of Problems with Anesthesia: No Social History Social History Household Members: Family Household Members Other:: Son, Akil Joe Housing: House Housing Other:: [facility] Do you presently have visiting nurse or other home services: Yes (VNA services) Unable to assess alcohol history related to: Unable to respond Alcohol intake: never Patient Tobacco Use Status: Never used Tobacco Second Hand Smoke Exposure: No Advance Directives: Yes Advance Directives on File: Yes Advance Directives Date on File: 04/19/21 service: No Current occupational status: retired Sexual orientation: Straight/Heterosexual Meds Allergies Allergy/AdvReac Type Severity Reaction Status Date / Time morphine AdvReac Severe Alternate Verified 09/27/21 10:25 mental status Active Medications: Current Medications Lactated Ringer's (Lr) 1,000 mls @ 50 mls/hr IVCONT .Q20H LINDSAY Metoprolol Tartrate (Metoprolol Tartrate 5 Mg/5 Ml Vial) 5 mg IVPUSH ONCE ONE Stop: 12/08/21 06:42 Exam Exam Date and Time: December 08, [id number] Height,Weight and Vital Signs: Height 5 ft Weight 49.895 kg Last Vital Signs Temp 98.7 F 12/08/21 06:37 Pulse 100 12/08/21 06:37 Resp 20 12/08/21 06:37 BP 155/92 H 12/08/21 06:37 Pulse Ox 95 12/08/21 06:37 O2 Del Method 12/08/21 06:37 Pertinent Lab Results Pertinent Lab Results: Laboratory Tests 12/08/21 06:15 COVID-19 ([facility]) Negative COVID-19 Clin Com See Note Airway Mallampati Class: II TM Dist: >3cm Neck ROM: Full Heart: irreg Lungs: cta Assessment and Plan Assessment Anesthesia Assessment: Anesthesia Plan Discussed (No beta link received, getting metoprolol on board prior as tolerated) and Chart Reviewed Final Anesthetic Review Family History of Problems with Anesthesia: No History of Problems with Anesthesia: No NPO: Yes ASA Class: II Final Preanesthetic Review: No Changes in Pt Med Stat, Meds/Allgs Chart Reviewed and Consent Obtained/Reviewed Patient Risk: Intermediate Procedure Risk: Intermediate Anesthetic Plan Anesthetic Plan: GA Disposition: Standard PACU
[2021-12-08] MEDS: Metoprolol Tartrate 5 MG/5 ML VIAL IVPUSH (07:02)
--- NOTE | 2021-12-08 07:07 | MHC.SHP ---
Pre-Procedural Eval Section A Date of Service: 12/08/21 The patient is an INPATIENT: No Changes since office visit: No Cold of Flu in the past 2 weeks, No New Medical Problems, No Changes in Medication and No Patient answered all questions The History & Physical has been completed within 30 days and I have reviewed it.: Yes Section B Chief Complaint: depression disorder Allergies: Allergies Allergy/AdvReac Type Severity Reaction Status Date / Time morphine AdvReac Severe Alternate Verified 09/27/21 10:25 mental status Plan I have reviewed the history and physical and performed a pertinent physical examination on my patient. No changes have occurred unless specified.
--- NOTE | 2021-12-08 07:22 | HO.ECTPROC ---
ECT Procedure Note Diagnosis/Treatment Date of Service: 12/08/21 Diagnosis: Major Depressive Disorder Previous ECT Date: 12/01/21 Current Treatment Number: 10 Treatment: Maintenance Interval Clinical Notes: The patient reported some depressive symptoms. No side effects reported but she had ventricular fiibralation on the last treament. The patient didn't received her Metoprolol before the procedures since nursies starts on the SNF at 7 am. Now on Metoprolol here. ECT Settings Device: THYMATRON DGx Electrode Placement: Right Unilateral Program/Pulse Width: 0.50 Energy Percent: 100 Seizure Duration By EEG (in seconds): 38 By Motor Observation (in seconds): 22 Medications Administration General Anesthetic: Etomidate (6) Muscle Relaxant: Succinylcholine (80) Ancillary Medications Anti-emetics: Zofran - Pre ECT Cardiovascular Medications: Esmolol Miscillaneous Medications: Other (Metoprolol given before the ECT on IV drip) Airway Management Airway Management: Bag Mask Ventilation Treatment Recommendations No Changes Recommended: No change Pt Tolerated Procedure w/o Issue: Yes
== END 2021-12-08 09:04 | disposition home or self-care (01) ==
PROVIDERS: Visit Provider Psychiatry & Neurology Psychiatry
PROC: (CPT 90870; principal; 2021-12-08 14:00)
DX: F33.2 Major depressive disorder, recurrent severe without psychotic features (principal); I11.0 Hypertensive heart disease with heart failure; I50.30 Unspecified diastolic (congestive) heart failure; I48.19 Other persistent atrial fibrillation; F03.90 Unspecified dementia, unspecified severity, without behavioral disturbance, psychotic disturbance, mood disturbance, and anxiety; K21.9 Gastro-esophageal reflux disease without esophagitis; Z79.01 Long term (current) use of anticoagulants; Z79.899 Other long term (current) drug therapy; Z88.8 Allergy status to other drugs, medicaments and biological substances; Z20.822 Contact with and (suspected) exposure to COVID-19
CPT/HCPCS: 87635; 90870; J0330; J2405

== ENCOUNTER → 2021-12-12 12:56 | Outpatient (BNVA) | payer MEDICARE, OTHER, SELFPAY | PROVIDERS: PCP Internal Medicine; Visit Provider Internal Medicine | DX: I48.19 Other persistent atrial fibrillation (principal); I11.0 Hypertensive heart disease with heart failure; I50.30 Unspecified diastolic (congestive) heart failure; F03.90 Unspecified dementia, unspecified severity, without behavioral disturbance, psychotic disturbance, mood disturbance, and anxiety; F33.2 Major depressive disorder, recurrent severe without psychotic features; F41.9 Anxiety disorder, unspecified | CPT/HCPCS: 99212 ==

== ENCOUNTER 2021-12-15 08:01 | Day surgery (SDC) | payer MEDICARE, OTHER, SELFPAY ==
[2021-12-15] VITALS (8 sets, daily range): BP systolic 161–214; BP diastolic 81–125; PULSE 81–107; RESP 14–18; TEMP 36.2–37.3; O2SAT 93–100; BMI 22.4
[2021-12-15 08:34] LABS: COVID-19 Test Negative (Negative); IDNOW Serial# 16C4AD1C
[2021-12-15] MEDS: Metoprolol Tartrate 50 MG TABLET 100 MG PO (08:35)
--- NOTE | 2021-12-15 08:58 | HO.ANESPROP2 ---
[facility] Active Problems Active Problems: All Active Problems (Updated 12/12/21 @ 13:47 by Kam Reynaga MD) Essential hypertension (Acute) Persistent atrial fibrillation (Acute) Major depressive disorder, recurrent severe without psychotic features (Acute) Atrial fibrillation with rapid ventricular response (Acute) Major depressive disorder (Acute) Delusion (Acute) Dementia (Acute) Compression fracture of T9 vertebra (Acute) E coli bacteremia (Acute) Ocular melanoma (Acute) Delusions (Acute) Bacteriuria (Acute) Depression (Acute) Diarrhea (Acute) Uncontrolled hypertension (Acute) Acute diastolic heart failure (Acute) Pleural effusion (Acute) Pleural effusion (Acute) Hemopneumothorax (Acute) Fall (Acute) Fracture, rib (Acute ~02/2020) Atrial fibrillation with rapid ventricular response (Acute) HTN (hypertension) (Acute) Past Medical History Medical History Anxiety Atrial fibrillation with controlled ventricular rate Dementia Depression Diastolic heart failure GERD (gastroesophageal reflux disease) History of rib fracture HTN (hypertension) Major depressive disorder, 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 Father No problems noted. Family history of problems with anesthesia: No Surgical History Surgical History No pertinent past surgical history History of Problems with Anesthesia: No Social History Social History Household Members: Family Household Members Other:: Son, Akil Joe Housing: House Housing Other:: [facility] Do you presently have visiting nurse or other home services: Yes (VNA services) Unable to assess alcohol history related to: Unable to respond Alcohol intake: never Patient Tobacco Use Status: Never used Tobacco Second Hand Smoke Exposure: No Advance Directives: No Advance Directives Information Provided: Yes Advance Directives Date on File: 04/19/21 service: No Current occupational status: retired Sexual orientation: Straight/Heterosexual Meds Allergies Allergy/AdvReac Type Severity Reaction Status Date / Time morphine AdvReac Severe Alternate Verified 12/12/21 12:59 mental status Exam Exam Date and Time: December 15, 2021 0858 Height,Weight and Vital Signs: Height 5 ft Weight 52.163 kg Last Vital Signs Temp 97.2 F 12/15/21 08:38 Pulse 103 H 12/15/21 08:38 Resp 16 12/15/21 08:38 BP 167/94 H 12/15/21 08:38 Pulse Ox 96 12/15/21 08:38 O2 Del Method 12/15/21 08:38 Pertinent Lab Results Pertinent Lab Results: Laboratory Tests 12/15/21 08:04 COVID-19 ([facility]) Negative COVID-19 Clin Com See Note Airway Mallampati Class: II TM Dist: >3cm Neck ROM: Full Heart: irreg Lungs: cta Assessment and Plan Assessment Anesthesia Assessment: Anesthesia Plan Discussed and Chart Reviewed Final Anesthetic Review Family History of Problems with Anesthesia: No History of Problems with Anesthesia: No NPO: Yes ASA Class: III Final Preanesthetic Review: No Changes in Pt Med Stat, Meds/Allgs Chart Reviewed and Consent Obtained/Reviewed Patient Risk: Intermediate Procedure Risk: Intermediate Anesthetic Plan Anesthetic Plan: GA Disposition: Standard PACU
--- NOTE | 2021-12-15 10:14 | MHC.SHP ---
Pre-Procedural Eval Section A Date of Service: 12/17/21 Section B Chief Complaint: depression disorder Details of Present Illness: recurrent dep afib response to ect hhx rapid afid hx ? 2 tx ago transient vatach briefly had ect after this with b blockade with good effect Relevant Social History: None Allergies: Allergies Allergy/AdvReac Type Severity Reaction Status Date / Time morphine AdvReac Severe Alternate Verified 12/12/21 12:59 mental status Review of Systems Sugical H&P ROS: Yes, Specify: Constitution (fatigue ) and Psychiatric (depressed mood ) Exam Surgical H&P Exam: Normal: Lungs (clear) and Significant Findings: Heart (afib ) Plan Diagnosis/Plan: Unchanged I have reviewed the history and physical and performed a pertinent physical examination on my patient. No changes have occurred unless specified. a fib received metoprolol in pacu pre tx
[2021-12-15] MEDS: Metoprolol Tartrate 5 MG/5 ML VIAL IVPUSH (11:58)
--- NOTE | 2021-12-15 13:12 | HO.ECTPROC ---
ECT Procedure Note Diagnosis/Treatment Date of Service: 12/15/21 Diagnosis: Major Depressive Disorder Previous ECT Date: 12/08/21 Current Treatment Number: 11 Treatment: Maintenance Interval Clinical Notes: pt with some dep sx no reported neg consequence to ect unclear if weekly tx has stabilized pt has been getting metpprolol pre ect pacu this appears to have stabilized cardiac s/e ECT Settings Device: THYMATRON DGx Electrode Placement: Right Unilateral Program/Pulse Width: 0.50 Energy Percent: 100 Seizure Duration By EEG (in seconds): 16 Medications Administration General Anesthetic: Etomidate (6) Muscle Relaxant: Succinylcholine (80) Ancillary Medications Anti-emetics: Zofran - Pre ECT Miscillaneous Medications: Other (Metoprolol given before the ECT on arrival on 100 bid ) Airway Management Airway Management: Bag Mask Ventilation Treatment Recommendations No Changes Recommended: No change Notes: had iv metoprolol 1-2 mg iv x 3 x will discuss with son whether ect cont to be helpful Pt Tolerated Procedure w/o Issue: Yes
== END 2021-12-15 12:01 | disposition home or self-care (01) ==
PROVIDERS: Visit Provider Psychiatry & Neurology Psychiatry
PROC: (CPT 90870; principal; 2021-12-15 10:30)
DX: F33.2 Major depressive disorder, recurrent severe without psychotic features (principal); I48.19 Other persistent atrial fibrillation; I11.0 Hypertensive heart disease with heart failure; I50.30 Unspecified diastolic (congestive) heart failure; F41.1 Generalized anxiety disorder; F03.90 Unspecified dementia, unspecified severity, without behavioral disturbance, psychotic disturbance, mood disturbance, and anxiety; Z79.01 Long term (current) use of anticoagulants; Z79.899 Other long term (current) drug therapy; Z88.8 Allergy status to other drugs, medicaments and biological substances; Z20.822 Contact with and (suspected) exposure to COVID-19
CPT/HCPCS: 87635; 90870; J0330; J2405

== ENCOUNTER → 2022-06-19 12:32 | Outpatient (BNVA) | payer MEDICARE, OTHER, SELFPAY | PROVIDERS: PCP Internal Medicine; Visit Provider Internal Medicine | DX: I48.19 Other persistent atrial fibrillation (principal); I11.0 Hypertensive heart disease with heart failure; I50.30 Unspecified diastolic (congestive) heart failure | CPT/HCPCS: 99212 ==

== ENCOUNTER 2022-08-09 09:02 | Emergency (ER) | payer MEDICARE, OTHER, SELFPAY ==
[2022-08-09] VITALS (7 sets, daily range): BP systolic 106–186; BP diastolic 30–111; PULSE 77–100; RESP 15–19; TEMP 36.2–36.9; O2SAT 93–96; BMI 15.2
--- NOTE | ~2022-08-09 | CT_ITS ---
EXAMINATION: NONCONTRAST HEAD CT NONCONTRAST CERVICAL SPINE CT INDICATION INFORMATION: Fall on blood thinners. Confusion. COMPARISON: 10/03/2021 TECHNIQUE: Separate noncontrast CT examinations of the head and cervical spine were performed. Coronal and sagittal images were created for each examination at the technologist workstation. This CT examination was performed using dose optimization techniques as appropriate, variously including the following: *Automated exposure control *Adjustment of mA and/or kV according to patient size (this includes techniques or standardized protocols for targeted exams where dose is matched to indication/reason for exam; i.e. extremities or head) *Use of iterative reconstruction technique DLP: 1102 mGy-cm FINDINGS: Head: There is no evidence of acute intracranial hemorrhage or territorial infarction. No abnormal mass effect or midline shift is seen. Smith to white matter differentiation is well preserved. No extra-axial fluid collections are identified. No hydrocephalus. Proportional prominence of the ventricles and sulcal spaces is consistent with mild volume loss. Patchy periventricular and deep white matter hypoattenuation is consistent with mild small vessel ischemic changes. No acute osseous or soft tissue abnormality. The mastoid air cells and visualized portions of the paranasal sinuses are well aerated. Cervical spine: Slight retrolisthesis of C3 on C4. Accentuation of the cervical lordosis. There is otherwise anatomic alignment of the vertebral bodies and posterior elements. The atlantoaxial and atlantooccipital articulations are intact. Vertebral body heights are maintained. There is multilevel intervertebral disc space narrowing with endplate osteophyte formation and facet arthropathy. No evidence of acute fracture. No prevertebral soft tissue swelling. Visualized portions of the lung apices are unremarkable. The thyroid gland is unremarkable. CT/CT cervical spine wo IV con IMPRESSION: 1. No acute intracranial finding. 2. No acute fracture or malalignment of the cervical spine. Moderate degenerative changes.
--- NOTE | 2022-08-09 09:31 | ECG_ITS ---
Test Reason : FALL Blood Pressure : / mmHG Vent. Rate : 097 BPM Atrial Rate : 000 BPM P-R Int : 000 ms QRS Dur : 090 ms QT Int : 302 ms P-R-T Axes : 000 -55 180 degrees QTc Int : 383 ms Atrial fibrillation Left axis deviation Anteroseptal infarct (cited on or before 29-MAR-2020) ST & T wave abnormality, consider lateral ischemia Abnormal ECG When compared with ECG of 01-DEC-2021 07:56, Nonspecific T wave abnormality now evident in Inferior leads T wave inversion now evident in Anterolateral leads Referred By: Emiliana Milner Electronically Signed By:ADRIANA MARTÍNEZ MD
--- NOTE | 2022-08-09 09:32 | ED_ITS ---
HPI - Fall General Chief Complaint: Fall Stated Complaint: WEAK,UNWIT FALL LAST NOC,+THIN,RAMB SPEECH Time Seen by Provider: 08/09/22 09:27 Source: patient, EMS and old records reviewed Mode of arrival: EMS Limitations: altered mental status History of Present Illness HPI Narrative: 81-year-old female with a history of dementia, AFib on Eliquis, HFpEF, HTN, hx falls, hx rib fracture w/ hemopnemothorax, hx ocular melanoma who presents to the ER for evaluation of confusion and garbled speech after an unwitnessed fall last night. Patient returned to the ER confused, oriented to person. She denies any pain. She is anxious and restless. Unknown baseline mental status. She had no signs of obvious trauma on arrival. Per nursing at [facility] where she resides patient had an unwitnessed fall at 3:18 am. No complaints of pain or injury. She was put back to bed. This morning patient was later found the patient was more confused, shakey, pale and was speaking in word salad, which is unusual for her. At baseline she is verbal, soft spoken, oriented x1 ambulates with a walker. She is forgetful and requires assistance with care. MD complaint: fall Onset (ago): unknown Fall witnessed: no Place fall occurred: [facility] Loss of consciousness: unsure Prolonged down time: unclear Associated symptoms (after fall): denies Related Data Home Medications Medication Instructions Recorded Confirmed melatonin 3 mg capsule 3 mg PO BEDTIME 06/19/22 08/09/22 metoprolol tartrate 50 mg tablet 50 mg PO BID 06/19/22 08/09/22 trazodone 100 mg tablet 50 mg PO DAILY@199906/19/22 08/09/22 trazodone 50 mg tablet 5 mg PO BID@0900,1200 08/09/22 08/09/22 Previous Rx's Medication Instructions Recorded acetaminophen 325 mg tablet 650 mg PO Q6H PRN Pain, Mild (Pain 11/20/21 Scale 1-3) 30 days #60 tabs apixaban 2.5 mg tablet (Eliquis) 2.5 mg PO BID 30 days #60 tabs 11/20/21 atorvastatin 40 mg tablet 40 mg PO BEDTIME #30 tabs 11/20/21 calcium carbonate 600 mg-vitamin 1 tab PO DAILY 30 days #30 tabs 11/20/21 D3 20 mcg (800 unit) tablet (Caltrate with Vitamin D3) digoxin 125 mcg (0.125 mg) tablet 125 mcg PO 90 days #52 11/20/21 tabs duloxetine 30 mg capsule,delayed 30 mg PO BID 30 days #60 caps 11/20/21 release mirtazapine 15 mg tablet 15 mg PO BEDTIME #30 tabs 11/20/21 olanzapine 2.5 mg tablet 2.5 mg PO BID #60 tabs 11/20/21 Allergies Allergy/AdvReac Type Severity Reaction Status Date / Time morphine AdvReac Severe Alternate Verified 06/19/22 12:45 mental status Review of Systems Review of Systems: Yes all other systems are reviewed and are negative [facility] Past Medical History Medical History Anxiety Atrial fibrillation with controlled ventricular rate Dementia Depression Diastolic heart failure GERD (gastroesophageal reflux disease) History of rib fracture HTN (hypertension) Major depressive disorder, 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 Father No problems noted. Social History Social History Household Members: Family Household Members Other:: Son, Akil Joe Housing: House Housing Other:: [facility] Do you presently have visiting nurse or other home services: Yes (VNA services) Unable to assess alcohol history related to: Unable to respond Alcohol intake: never Patient Tobacco Use Status: Never used Tobacco Second Hand Smoke Exposure: No Advance Directives: Yes Advance Directives on File: Yes Advance Directives Date on File: 04/19/21 service: No Current occupational status: retired Sexual orientation: Straight/Heterosexual Physical Exam Vital Signs: Vital Signs: Last Vital Signs Temp 98.1 F 08/09/22 15:33 Pulse 100 08/09/22 17:39 Resp 16 08/09/22 17:39 BP 186/111 H 08/09/22 17:39 Pulse Ox 95 08/09/22 17:39 O2 Del Method Room Air 08/09/22 17:39 BMI result Body Mass Index 15.2 Appearance: Alert elderly female, laying in bed, UE tremor. Oriented X1. No acute distress. Head: normocephalic, atraumatic. Eyes: Pupils equal, round and reactive to light. ENT: Pharynx normal. No tonsillar swelling or exudate. Neck: Normal inspection. Neck supple. CVS: Normal heart rate and rhythm. Pulses normal. Respiratory: No respiratory distress. Breath sounds normal. Abdomen: Soft and nontender. +BS x4 Skin: Skin warm and dry. Normal skin color. Normal skin turgor. No rashes. Extremities: No lower extremity edema. No joint swelling. Neuro/psych: Oriented X1, moves all extremities, CN II-XII intact. Normal speech and cognition. Medical Decision Making Medical Decision Making MDM Narrative: 81-year-old female with a history of dementia, AFib on Eliquis, HFpEF, HTN, hx falls, hx rib fracture w/ hemopnemothorax, hx ocular melanoma who presents to the ER for evaluation of confusion and garbled speech after an unwitnessed fall last night. Oriented x1, moving all extremities. She is answering questions appropriately, stuttering at times. No witnessed episodes of word salad. CT head without bleed or edema. Labs unremarkable. No UTI. Will get PT evaluation given her recent fall. Case management consulted. Will place in physician observation at this time. Home medications have been restarted. P.o. diet has been restarted. Differential Diagnosis Differential Diagnoses: The differential diagnosis associated with the presentation includes Acute stroke, traumatic head injury including a possible brain bleed, UTI or other infection, dehydration, anemia, gait instability, broken hip, other traumatic injury Lab Data [facility] Lab Attestation statement: I reviewed the patient's lab results. Stable anemia, no major metabolic derangement or evidence of significant dehydration. 08/09/22 09:58 08/09/22 09:58 Labs: Lab Results 08/09/22 08/09/22 08/09/22 Range/Units 09:58 09:58 09:58 WBC 9.3 (4.8-10.8) X10*3/uL RBC 3.82 L (4.20-5.50) X10*6/uL Hgb 11.8 L (12.0-16.0) g/dl Hct 35.0 L (37.0-47.0) % MCV 91.6 (80.0-98.0) fL MCH 30.9 (27.0-33.0) pg MCHC 33.7 (31.0-35.0) g/dl RDW 12.8 (11.0-16.0) % Plt Count 209 (160-400) X10*3/uL MPV 11.5 (9.4-12.3) fL Immature Gran % (Auto) 0.4 (0.0-0.4) % Neut % (Auto) 74.3 H (45-73) % Lymph % (Auto) 19.5 L (20-40) % Hancock % (Auto) 5.4 (2-11) % Eos % (Auto) 0.2 (0-4) % Baso % (Auto) 0.2 (0-2) % Lymph # (Auto) 1.8 (1.2-4.9) X10*3/uL Hancock # (Auto) 0.5 (0.1-1.2) X10*3/uL Eos # (Auto) 0.0 (0.0-0.4) X10*3/uL Baso # (Auto) 0.0 (0.0-0.2) X10*3/uL Abs Immat Gran (auto) 0.04 H (0.00-0.03) X10*3/uL Absolute Neuts (auto) 6.9 (2.0-8.3) x10*3/uL Absolute Nucleated RBC 0.000 (0.0-0.012) X10*3/uL Nucleated RBC % (auto) 0.0 (0.0-0.2) /100WBC PT 15.9 H (10.0-13.1) SEC INR 1.4 H (0.9-1.1) APTT 33.4 (26.0-36.4) SEC Sodium 140 (135-145) mmol/L Potassium 4.2 (3.3-5.1) mmol/L Chloride 102 (96-108) mmol/L Carbon Dioxide 24 (22-29) mmol/L Anion Gap 18 (12-20) BUN 28 H (9-16) mg/dL Creatinine 1.31 (0.5-1.4) mg/dL Estim Creat Clear Calc 20.3 Estimated GFR 39 Random Glucose 95 (60-115) mg/dL Calcium 10.1 D (8.4-10.2) mg/dL Magnesium 2.0 (1.6-2.6) mg/dL Total Bilirubin 1.0 (0.0-1.0) mg/dL Direct Bilirubin 0.3 (0.0-0.5) mg/dL AST 21 (5-31) U/L ALT 16 (0-31) U/L Alkaline Phosphatase 63 (39-117) U/L Total Creatine Kinase 188 H (26-140) U/L Troponin I High Sens (<3.5-17.0) ng/L Total Protein 6.7 (6.5-8.0) g/dL Albumin 3.8 (3.5-5.0) g/dL Urine Color Urine Appearance Urine pH (5.0-9.0) Ur Specific Fieldon (1.005-1.025) Urine Protein (Neg-Trace) mg/dL Urine Glucose (UA) (Negative) mg/dL Urine Ketones (Negative) mg/dL Urine Blood (Negative) Urine Nitrite (Negative) Ur Leukocyte Esterase (Negative) Digoxin (0.8-2.0) ng/mL COVID-19 (KYLEE) (Negative) COVID-19 Clin Com 08/09/22 08/09/22 08/09/22 Range/Units 09:58 09:58 13:19 WBC (4.8-10.8) X10*3/uL RBC (4.20-5.50) X10*6/uL Hgb (12.0-16.0) g/dl Hct (37.0-47.0) % MCV (80.0-98.0) fL MCH (27.0-33.0) pg MCHC (31.0-35.0) g/dl RDW (11.0-16.0) % Plt Count (160-400) X10*3/uL MPV (9.4-12.3) fL Immature Gran % (Auto) (0.0-0.4) % Neut % (Auto) (45-73) % Lymph % (Auto) (20-40) % Hancock % (Auto) (2-11) % Eos % (Auto) (0-4) % Baso % (Auto) (0-2) % Lymph # (Auto) (1.2-4.9) X10*3/uL Hancock # (Auto) (0.1-1.2) X10*3/uL Eos # (Auto) (0.0-0.4) X10*3/uL Baso # (Auto) (0.0-0.2) X10*3/uL Abs Immat Gran (auto) (0.00-0.03) X10*3/uL Absolute Neuts (auto) (2.0-8.3) x10*3/uL Absolute Nucleated RBC (0.0-0.012) X10*3/uL Nucleated RBC % (auto) (0.0-0.2) /100WBC PT (10.0-13.1) SEC INR (0.9-1.1) APTT (26.0-36.4) SEC Sodium (135-145) mmol/L Potassium (3.3-5.1) mmol/L Chloride (96-108) mmol/L Carbon Dioxide (22-29) mmol/L Anion Gap (12-20) BUN (9-16) mg/dL Creatinine (0.5-1.4) mg/dL Estim Creat Clear Calc Estimated GFR Random Glucose (60-115) mg/dL Calcium (8.4-10.2) mg/dL Magnesium (1.6-2.6) mg/dL Total Bilirubin (0.0-1.0) mg/dL Direct Bilirubin (0.0-0.5) mg/dL AST (5-31) U/L ALT (0-31) U/L Alkaline Phosphatase (39-117) U/L Total Creatine Kinase (26-140) U/L Troponin I High Sens 16.8 (<3.5-17.0) ng/L Total Protein (6.5-8.0) g/dL Albumin (3.5-5.0) g/dL Urine Color Yellow Urine Appearance Clear Urine pH 6.0 (5.0-9.0) Ur Specific Fieldon 1.015 (1.005-1.025) Urine Protein Trace (Neg-Trace) mg/dL Urine Glucose (UA) Negative (Negative) mg/dL Urine Ketones 15 (Negative) mg/dL Urine Blood Negative (Negative) Urine Nitrite Negative (Negative) Ur Leukocyte Esterase Negative (Negative) Digoxin 0.7 L (0.8-2.0) ng/mL COVID-19 (KYLEE) (Negative) COVID-19 Clin Com 08/09/22 Range/Units 14:35 WBC (4.8-10.8) X10*3/uL RBC (4.20-5.50) X10*6/uL Hgb (12.0-16.0) g/dl Hct (37.0-47.0) % MCV (80.0-98.0) fL MCH (27.0-33.0) pg MCHC (31.0-35.0) g/dl RDW (11.0-16.0) % Plt Count (160-400) X10*3/uL MPV (9.4-12.3) fL Immature Gran % (Auto) (0.0-0.4) % Neut % (Auto) (45-73) % Lymph % (Auto) (20-40) % Hancock % (Auto) (2-11) % Eos % (Auto) (0-4) % Baso % (Auto) (0-2) % Lymph # (Auto) (1.2-4.9) X10*3/uL Hancock # (Auto) (0.1-1.2) X10*3/uL Eos # (Auto) (0.0-0.4) X10*3/uL Baso # (Auto) (0.0-0.2) X10*3/uL Abs Immat Gran (auto) (0.00-0.03) X10*3/uL Absolute Neuts (auto) (2.0-8.3) x10*3/uL Absolute Nucleated RBC (0.0-0.012) X10*3/uL Nucleated RBC % (auto) (0.0-0.2) /100WBC PT (10.0-13.1) SEC INR (0.9-1.1) APTT (26.0-36.4) SEC Sodium (135-145) mmol/L Potassium (3.3-5.1) mmol/L Chloride (96-108) mmol/L Carbon Dioxide (22-29) mmol/L Anion Gap (12-20) BUN (9-16) mg/dL Creatinine (0.5-1.4) mg/dL Estim Creat Clear Calc Estimated GFR Random Glucose (60-115) mg/dL Calcium (8.4-10.2) mg/dL Magnesium (1.6-2.6) mg/dL Total Bilirubin (0.0-1.0) mg/dL Direct Bilirubin (0.0-0.5) mg/dL AST (5-31) U/L ALT (0-31) U/L Alkaline Phosphatase (39-117) U/L Total Creatine Kinase (26-140) U/L Troponin I High Sens (<3.5-17.0) ng/L Total Protein (6.5-8.0) g/dL Albumin (3.5-5.0) g/dL Urine Color Urine Appearance Urine pH (5.0-9.0) Ur Specific Fieldon (1.005-1.025) Urine Protein (Neg-Trace) mg/dL Urine Glucose (UA) (Negative) mg/dL Urine Ketones (Negative) mg/dL Urine Blood (Negative) Urine Nitrite (Negative) Ur Leukocyte Esterase (Negative) Digoxin (0.8-2.0) ng/mL COVID-19 (KYLEE) Negative (Negative) COVID-19 Clin Com See Note Independent Interpretation I performed an independent interpretation of an: EKG and CT Scan Interpretation: EKG with atrial fibrillation, heart rate 97 beats per minute, T-wave inversions with mild ST depression in V4, V5, V6 CT head reviewed, no appreciated edema or bleed. Agree w. radiologist read Radiology Impression Discussion of test interpretation with radiology: I have reviewed the radiologist's reading. Radiologist Impression: ?CT/CT head/brain wo IV con IMPRESSION: 1.? No acute intracranial finding. 2.? No acute fracture or malalignment of the cervical spine. Moderate degenerative changes. ? Independent Historian Clinical information obtained from an independent historian. History obtained from or confirmed by: EMS Also discussed case with patient's nurse at her assisted living [facility] External Record Review External record reviewed: Outpatient record, Prior outpatient labs and Prior outpatient radiology Chronic Conditions Patient?s care impacted by: Other (Dementia, AFib) Critical Care Time Critical Care Time Critical Care Time: No Discharge Plan Discharge Clinical Impression: Fall, Dementia, Delirium Patient Disposition: Still a Patient Prescriptions: No Action acetaminophen 325 mg Tablet 650 mg PO Q6H PRN (Reason: Pain, Mild (Pain Scale 1-3)) 30 Days Qty: 60 0RF olanzapine 2.5 mg Tablet 2.5 mg PO BID Qty: 60 0RF mirtazapine 15 mg Tablet 15 mg PO BEDTIME Qty: 30 0RF duloxetine 30 mg Capsule,Delayed Release(Dr/Ec) 30 mg PO BID 30 Days Qty: 60 0RF atorvastatin 40 mg tablet 40 mg PO BEDTIME Qty: 30 5RF digoxin 125 mcg (0.125 mg) tablet 125 mcg PO 90 Days Qty: 52 3RF Rx Instructions: Please call and schedule an appt calcium carbonate-vitamin D3 [Caltrate with Vitamin D3] 600 mg(1,500mg) -800 unit Tablet 1 tab PO DAILY 30 Days Qty: 30 0RF Eliquis 2.5 mg tablet 2.5 mg PO BID 30 Days Qty: 60 5RF trazodone 50 mg tablet 5 mg PO BID@0900,1200 melatonin 3 mg capsule 3 mg PO BEDTIME metoprolol tartrate 50 mg tablet 50 mg PO BID trazodone 100 mg tablet 50 mg PO DAILY@2000
[2022-08-09 10:02] LABS: MANUAL DIFF FLAG NO
[2022-08-09 10:08] LABS: Basophils Percent Auto 0.2 % (0-2); Eosinophils Percent Auto 0.2 % (0-4); Hemoglobin 11.8 g/dl (12.0-16.0); Imm Gran Abs Auto 0.04 X10*3/uL (0.00-0.03); Imm Gran Pct Auto 0.4 % (0.0-0.4); Lymphocytes Absolute Auto 1.8 X10*3/uL (1.2-4.9); Lymphocytes Percent Auto 19.5 % (20-40); Mean Corpuscular HGB Conc 33.7 g/dl (31.0-35.0); Mean Corpuscular Hemoglobin 30.9 pg (27.0-33.0); Mean Corpuscular Volume 91.6 fL (80.0-98.0); Mean Platelet Volume 11.5 fL (9.4-12.3); Monocytes Absolute Auto 0.5 X10*3/uL (0.1-1.2); Monocytes Percent Auto 5.4 % (2-11); Neutrophils Absolute Auto 6.9 x10*3/uL (2.0-8.3); Neutrophils Percent Auto 74.3 % (45-73); Platelet Count 209 X10*3/uL (160-400); Red Blood Count 3.82 X10*6/uL (4.20-5.50); Red Cell Distribution Width 12.8 % (11.0-16.0); White Blood Count 9.3 X10*3/uL (4.8-10.8)
[2022-08-09 10:13] LABS: INTERNATIONAL NORM RATIO 1.4 (0.9-1.1); Prothrombin Time 15.9 SEC (10.0-13.1)
[2022-08-09 10:16] LABS: Partial Thromboplastin Time 33.4 SEC (26.0-36.4)
[2022-08-09 10:32] LABS: Alanine Aminotransferase 16 U/L (0-31); Albumin Level 3.8 g/dL (3.5-5.0); Alkaline Phosphatase 63 U/L (39-117); Anion Gap 18 (12-20); Aspartate Amino Transferase 21 U/L (5-31); Bilirubin Direct 0.3 mg/dL (0.0-0.5); Blood Urea Nitrogen 28 mg/dL (9-16); Calcium 10.1 mg/dL (8.4-10.2); Carbon Dioxide 24 mmol/L (22-29); Chloride 102 mmol/L (96-108); Creatinine Clr Calc Pharmacy 20.3; Estimated Glomerular Filt Rate 39; Glucose Random 95 mg/dL (60-115); Potassium 4.2 mmol/L (3.3-5.1); Sodium 140 mmol/L (135-145); Total Protein 6.7 g/dL (6.5-8.0)
[2022-08-09 10:40] LABS: Troponin-I High Sensitivity 16.8 ng/L (<3.5-17.0)
--- NOTE | 2022-08-09 10:58 | PHA.MEDREC ---
Pharmacy Consult ? Medication Reconciliation Pharmacy has completed the medication reconciliation. List from the [facility]
[2022-08-09 11:12] LABS: Digoxin 0.7 ng/mL (0.8-2.0)
[2022-08-09 13:49] LABS: Appearance Urine Clear; Color Urine Yellow; Glucose Urine UA Negative (Negative); Leukocyte Esterase Urine Negative (Negative); Nitrite Urine Negative (Negative); Specific Gravity - Urine 1.015 (1.005-1.025); Urine Blood Negative (Negative); Urine Ketones 15 mg/dL (Negative); Urine Protein Trace mg/dL (Neg-Trace)
[2022-08-09 14:59] LABS: IDNOW Serial# BCCEAD1C
[2022-08-09 15:00] LABS: COVID-19 Test Negative (Negative)
--- NOTE | 2022-08-09 16:59 | PC.NURSE ---
nurse to nurse report to overflow RN
--- NOTE | 2022-08-09 17:40 | PC.NURSE ---
Pt came to overflow sleeping. Vitals were taken. Pt is currently sleeping comfortably in bed. Safety measures and bed alarm in place.
[2022-08-09] MEDS: Digoxin 0.125 MG TABLET PO (17:54)
--- NOTE | 2022-08-09 20:12 | MHC.CM.ED ---
Pt has advanced dementia, lives at [facility] and has an invoked HCP. HCP/son Akil Joe ([phone]). MOLST: DNR/DNI. There was no paperwork accompanying patient to ED. CM spoke with son. Pt uses a rollator. Pt has had PT services at the [facility] in the past and if PT recommends rehab, he would like home services at the [facility]. Akil believes PCP is Dr.May Michel (mechanical service specialist) from [place]. Attempted to verify by calling [facility], but it was after hours and was unable to leave a message. Will need to verify PCP and what VNA contracts with the [facility] for home PT services. Akil feels his mother's dementia is too advanced and she would not do well in a new facility. Akil lives in [place] and is travelling tomorrow. Will be available by cell tomorrow after 10:30 am. Pt would not participate in PT today-too sleepy. PT will attempt to evaluate 08/10 in the morning. No referrals placed at this time pending verification of PCP and services at the [facility]. D/C plan: home PT at the [facility]. Will need BLS transport d/t advanced dementia and high fall risk. CM will follow for discharge planning.
[2022-08-09] MEDS: Metoprolol Tartrate 50 MG TABLET PO (21:03)
[2022-08-09] MEDS: Melatonin 3 MG TABLET PO (21:03)
[2022-08-09] MEDS: traZODone HCL 50 MG TABLET PO (21:03)
[2022-08-09] MEDS: DULoxetine HCl 30 MG CAPSULE.DR PO (21:03)
[2022-08-09] MEDS: Mirtazapine 15 MG TABLET PO (21:03)
[2022-08-09] MEDS: Apixaban 2.5 MG TABLET PO (21:03)
[2022-08-09] MEDS: Atorvastatin Calcium 40 MG TABLET PO (21:03)
[2022-08-09] MEDS: OLANZapine 2.5 MG TABLET PO (21:11)
--- NOTE | 2022-08-09 21:23 | PC.NURSE ---
patient in bed with eyes closed sleeping in position patient received all medication with some coaching patient vitals are stable at this time patient will continue to be monitored for safety
[2022-08-10 06:00] VITALS: BP 141/83; PULSE 83; RESP 16; TEMP 36; O2SAT 98
--- NOTE | 2022-08-10 07:34 | PC.NURSE ---
Attempted to get pt up to eat breakfast, however Pt very sleepy still keeping eyes closed. Will let pt rest longer and try again when passing morning meds.
--- NOTE | 2022-08-10 08:46 | PC.NURSE ---
Received phone call from [facility] looking for update. Received information on frequent PT service used there as well as verified pts PCP. Attempted to call CM at this time to relay information however they are not in yet.
[2022-08-10] MEDS: Apixaban 2.5 MG TABLET PO (09:08)
[2022-08-10] MEDS: DULoxetine HCl 30 MG CAPSULE.DR PO (09:08)
[2022-08-10] MEDS: Calcium + Vitamin D 250 MG TABLET PO (09:08)
[2022-08-10] MEDS: Metoprolol Tartrate 50 MG TABLET PO (09:10)
--- NOTE | 2022-08-10 09:24 | PC.NURSE ---
Pt cleaned, sat up in bed and was assisted with eating breakfast. Zyprexa and Trazodone held at this time due to pt still being very sleepy
[2022-08-10 10:42] VITALS: BP 141/83; PULSE 83; O2SAT 98
--- NOTE | 2022-08-10 12:34 | MHC.CM.ED ---
Patient remains in ER overflow. Physical therapy eval completed. Home therapy is recommended in patient has assistance x1 and 24 hour supervision. Spoke with Jen at [facility]. They can provide care up to total dependent care. They also have baldo lifts. They have staff in house 17/09. [facility] Spoke with patient's son/HCP, Akil, via telephone at [phone]. Feliberto agreeable to [facility] and patient returning to [facility]. [facility] GUPTA booked for 130pm. Patient, Feliberto, Helen العلي and Gabriela SPEAR aware. Continue to monitor for d/c needs.
== END 2022-08-10 14:36 | disposition home or self-care (01) ==
PROVIDERS: Physician Assistant; Emergency Provider Emergency Medicine
DX: F05 Delirium due to known physiological condition (principal); F03.911 Unspecified dementia, unspecified severity, with agitation; I10 Essential (primary) hypertension; I48.91 Unspecified atrial fibrillation; Z20.822 Contact with and (suspected) exposure to COVID-19; Z20.828 Contact with and (suspected) exposure to other viral communicable diseases; Z79.899 Other long term (current) drug therapy; Z79.01 Long term (current) use of anticoagulants
CPT/HCPCS: 36415; 70450; 72125; 80048; 80076; 80162; 81003; 82550; 83735; 84484; 85025; 85610; 85730; 87635; 93005; 97162; 99285

== ENCOUNTER 2022-08-11 16:57 | Inpatient (IN) | payer MEDICARE, OTHER, SELFPAY ==
--- NOTE | ~2022-08-11 | XR_ITS ---
EXAMINATION: XR CHEST CLINICAL INFORMATION: Hypoxia and dyspnea COMPARISON: Chest x-ray 08/11/2022 TECHNIQUE: Frontal view of the chest was obtained. FINDINGS: The lungs are well-expanded with left lower lobe dense opacification likely consolidation or pleural effusion. The left upper lung and the right lung is clear. Heart size and vascularity is normal. There is mild levoscoliosis of dorsal spine. There are old healed right lateral rib fractures. XR/XR chest 1V IMPRESSION: 1. Dense left lower lobe opacification likely consolidation or pleural effusion. This is a new finding since 08/11/2022. 2. There are old healed right lateral rib fractures.
--- NOTE | ~2022-08-11 | CT_ITS ---
EXAMINATION: CT CERVICAL SPINE WITHOUT CONTRAST; UNENHANCED CT OF THE HEAD. CLINICAL INFORMATION: New episode of syncope. Fall. COMPARISON: CT head 10/03/2021. CT head and cervical spine 05/30/2021. TECHNIQUE: Routine unenhanced CT of the head with multiple coronal and sagittal reformatted images; routine unenhanced CT of the cervical spine with multiple coronal and sagittal reformatted images. This CT examination was performed using dose optimization techniques as appropriate, variously including the following: *Automated exposure control *Adjustment of mA and/or kV according to patient size (this includes techniques or standardized protocols for targeted exams where dose is matched to indication/reason for exam; i.e. extremities or head) *Use of iterative reconstruction technique DLP: 1122 mGy-cm FINDINGS: CT head: Moderate diffuse commensurate prominence of ventricles and sulci is noted. Moderate subcortical and periventricular white matter patchy hypodensities are visualized. No intrarenal hemorrhage, tumors or definitive acute infarcts visualized. Right orbital metallic density is noted and is suspicious for a chronic glaucoma drainage device similar to findings present on the 08/09/2022 examination. Images are suboptimal secondary to motion artifact. No significant opacification of the visualized paranasal sinuses, mastoid air cells and middle ear cavities. Repeat images demonstrate less motion artifact than on the initial images. A right ocular lens extraction is visualized. CT cervical spine: Accentuation of the cervical lordosis is present. Grade 1 degenerative retrolisthesis of C3 on C4 is present. These findings are grossly unchanged compared with 05/30/2021. No vertebral body compression deformities. Marked diffuse osteopenia. The current examination demonstrates physiologic rotatory subluxation of C1 and C2 with rightward deviation of the head. Dense bilateral carotid bulb calcific atherosclerotic plaques are noted. No prevertebral fluid collections or soft tissue inflammatory changes noted. The thyroid is grossly normal in appearance. CT/CT cervical spine wo IV con IMPRESSION: CT HEAD: 1. No acute intracranial abnormalities. 2. Moderate white matter chronic small vessel ischemic disease. CT CERVICAL SPINE: 1. No acute abnormalities. 2. Advanced chronic spondylosis of the cervical spine unchanged compared with 05/30/2021. 3. Dense bilateral carotid bulb calcific atherosclerotic plaques.
--- NOTE | ~2022-08-11 | XR_ITS ---
EXAMINATION: SUPINE CHEST, SINGLE VIEW PELVIS WITH 3 ADDITIONAL VIEWS RIGHT HIP CLINICAL INFORMATION: Hip pain after fall, preop COMPARISON: Chest radiograph 10/19/2021 CT abdomen and pelvis 09/10/2020 TECHNIQUE: Single supine view chest, 2 views pelvis with 2 additional views right hip FINDINGS: There is a comminuted subtrochanteric/intertrochanteric fracture involving the right hip. There is marked varus angulation of distal fracture fragment along with superior subluxation. The femoral acetabular joint is intact without dislocation. No other fractures are seen. Lungs appear hyperinflated compatible with COPD. Old bilateral healed rib fractures are seen. Kyphoplasty change mid thoracic spine with compression fracture of T9. Heart size within normal limits. No infiltrates, effusions or lung masses. No CHF. XR/XR hip RT w PEL1V IMPRESSION: 1. Acute comminuted subtrochanteric/intertrochanteric right hip fracture as described above. 2. No acute intrathoracic disease. There is underlying COPD.
--- NOTE | ~2022-08-11 | XR_ITS ---
EXAMINATION: SUPINE CHEST, SINGLE VIEW PELVIS WITH 3 ADDITIONAL VIEWS RIGHT HIP CLINICAL INFORMATION: Hip pain after fall, preop COMPARISON: Chest radiograph 10/19/2021 CT abdomen and pelvis 09/10/2020 TECHNIQUE: Single supine view chest, 2 views pelvis with 2 additional views right hip FINDINGS: There is a comminuted subtrochanteric/intertrochanteric fracture involving the right hip. There is marked varus angulation of distal fracture fragment along with superior subluxation. The femoral acetabular joint is intact without dislocation. No other fractures are seen. Lungs appear hyperinflated compatible with COPD. Old bilateral healed rib fractures are seen. Kyphoplasty change mid thoracic spine with compression fracture of T9. Heart size within normal limits. No infiltrates, effusions or lung masses. No CHF. XR/XR chest 1V IMPRESSION: 1. Acute comminuted subtrochanteric/intertrochanteric right hip fracture as described above. 2. No acute intrathoracic disease. There is underlying COPD.
--- NOTE | 2022-08-11 17:09 | ED_ITS ---
HPI - General Adult General Chief complaint: General Medical Stated complaint: SYNCOPE, UNRESPONSIVE FOR 1-2 MINS. CONFUSED Time Seen by Provider: 08/11/22 17:09 Source: patient, family (patient's son) and EMS Mode of arrival: EMS Limitations: other (patient has severe dementia at baseline) History of Present Illness HPI narrative: Patient is an 81 year old assigned female at with a history of a-fib on Eliquis, dementia, MDD, depression, and HTN presenting to the emergency department today after a syncopal episode. EMS states that she was seen for a similar issue a few days ago. EMS states that the patient had a brief episode of syncope and has now returned to baseline however, now she is complaining of right hip pain. Patient's son states that the patient is very demented at baseline however, she usually ambulates with a walker and has been unable to do so since her first visit here. Severity: mild Severity scale (1-10): 2 Relieving factors: none Exacerbating factors: none Associated symptoms: denies other symptoms Treatments prior to arrival: none Related Data Home Medications Medication Instructions Recorded Confirmed melatonin 3 mg capsule 3 mg PO BEDTIME 06/19/22 08/09/22 metoprolol tartrate 50 mg tablet 50 mg PO BID 06/19/22 08/09/22 trazodone 100 mg tablet 50 mg PO DAILY@199906/19/22 08/09/22 trazodone 50 mg tablet 5 mg PO BID@0900,1200 08/09/22 08/09/22 Previous Rx's Medication Instructions Recorded acetaminophen 325 mg tablet 650 mg PO Q6H PRN Pain, Mild (Pain 11/20/21 Scale 1-3) 30 days #60 tabs apixaban 2.5 mg tablet (Eliquis) 2.5 mg PO BID 30 days #60 tabs 11/20/21 atorvastatin 40 mg tablet 40 mg PO BEDTIME #30 tabs 11/20/21 calcium carbonate 600 mg-vitamin 1 tab PO DAILY 30 days #30 tabs 11/20/21 D3 20 mcg (800 unit) tablet (Caltrate with Vitamin D3) digoxin 125 mcg (0.125 mg) tablet 125 mcg PO 90 days #52 11/20/21 tabs duloxetine 30 mg capsule,delayed 30 mg PO BID 30 days #60 caps 09/26/22 release mirtazapine 15 mg tablet 15 mg PO BEDTIME #30 tabs 11/20/21 olanzapine 2.5 mg tablet 2.5 mg PO BID #60 tabs 11/20/21 Allergies Allergy/AdvReac Type Severity Reaction Status Date / Time morphine AdvReac Severe Alternate Verified 06/19/22 12:45 mental status Review of Systems Review of Systems: Yes Other (patient severely demented) Constitutional: Constitutional: Reports no additional constitutional complaints, Denies chills, Denies fever(s) and Denies night sweats Eyes: Eyes: Reports no additional eye complaints, Denies blurry vision, Denies change in vision, Denies diplopia, Denies eye discharge, Denies loss of vision and Denies eye pain ENT: Denies dizziness Cardiovascular: Cardiovascular: Reports no additional cardiovascular complaints, Denies chest pain, Denies lightheadedness, Denies Loss of Consciousness and Denies dyspnea Respiratory: Respiratory: Reports no additional respiratory complaints and Denies dyspnea Gastrointestinal: Gastrointestinal: Reports no additional gastrointestinal complaints, Denies abdominal pain, Denies melena, Denies hematochezia, Denies change in bowel habits and Denies change in stool character Genitourinary: Genitourinary: Denies hematuria, Denies urinary frequency, Denies dysuria, Denies urinary incontinence, Denies urinary hesitancy and Denies urinary urgency Musculoskeletal: Musculoskeletal: Reports no additional musculoskeletal complaints, Denies numbness and Denies tingling Comments: right hip pain Neurologic: Denies dizziness, Denies loss of vision, Denies numbness and Denies tingling Psychiatric: Psychiatric: Reports no additional psychiatric complaints Endocrine: Endocrine: Reports no additional endocrine complaints Hematologic/Lymphatic: Hematologic/Lymphatic: Reports no additional hematologic/lymphatic complaints Allergic/Immunologic: Allergic/Immunologic: Reports no additional allergic/immunologic complaints [facility] Past Medical History Attestation statement: The following information was validated with the patient. 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 Father No problems noted. Social History Social History Household Members: Family Household Members Other:: Son, Akil Joe Housing: House Housing Other:: [facility] Do you presently have visiting nurse or other home services: Yes ([facility] services) Unable to assess alcohol history related to: Unable to respond Alcohol intake: former Patient Tobacco Use Status: Never used Tobacco Smoked in Last 30 Days: No Second Hand Smoke Exposure: No Use of substances other than those prescribed or required for medical reasons: No Advance Directives: Yes Advance Directives on File: Yes Advance Directives Date on File: 04/19/21 service: No Current occupational status: retired Sexual orientation: Straight/Heterosexual Physical Exam ED Vital Signs: Vital Signs - 24 hr 08/11/22 17:19 08/11/22 17:25 08/11/22 18:37 Temperature 98.8 F 98.8 F Pulse Rate 74 113 H 86 Respiratory Rate 18 18 10 L Blood Pressure 169/85 H 169/85 H 152/81 H Pulse Oximetry 98 97 Oxygen Delivery Method Room Air Room Air Room Air 08/11/22 18:39 Temperature Pulse Rate Respiratory Rate 18 Blood Pressure Pulse Oximetry Oxygen Delivery Method BMI result Body Mass Index 15.6 Const General: cooperative, no acute distress, alert and awake Nutritional Appearance: well nourished Orientation/consciousness: oriented to person, No oriented to place and No o riented to time Limitations: no limitations [facility] Head: Yes normal to inspection and Yes atraumatic Ears: hearing grossly normal bilaterally and external ears normal General nose exam: Normal external nose present, no nasal discharge noted and no epistaxis Face and sinus: Yes normal facial exam, No abrasion and No laceration Mouth: Normal oral and palatal mucosa present, no drooling and no muffled voice Eyes General: appearance normal, both eyes and all related structures Periorbital: periorbital findings normal Eyelids: Yes eyelids normal Conjunctivae: conjunctivae normal Pupils: Equal, round and reactive pupils present EOM: EOMs intact bilaterally Neck Neck: Yes normal visual inspection, Yes full ROM and Yes no lymphadenopathy Chest Chest palpation & inspection: normal inspection of the chest Resp Effort & Inspection: normal respiratory effort and able to speak in complete sentences GI Inspection: Yes normal to inspection General: Yes no CVA tenderness Back/Spine/Pelvis Back: no CVA tenderness Cervical Spine: normal cervical lordosis and cervical ROM normal Pelvis: Other pelvic findings (pain with palpation of the right hip) Coccyx: Other pelvic findings (pain with palpation of the right hip) Neuro General: oriented to person, No oriented to place and No oriented to time Cranial nerves: Yes Equal, round and reactive pupils present Extrem General: Yes normal to inspection, Yes full ROM and Yes capillary refill normal Psych Appearance: grossly normal Mental Status: mental status grossly normal Affect: normal affect Attitude: cooperative Thought process: Normal thought process present Thought content: Normal thought content present Insight: Good insight present (Psych) Medications Administered Discontinued Medications Generic Name Dose Route Start Last Admin Trade Name Freq PRN Reason Stop Dose Admin Fentanyl 25 mcg 08/11/22 18:15 08/11/22 18:39 Fentanyl Citrate/Pf 100 Mcg/2 Ml Vial IVPUSH 08/11/22 18:16 25 mcg ONCE ONE Administration Protocol Medical Decision Making Medical Decision Making [facility] Narrative: Patient is an 81 year old assigned female at with a history of a-fib on Eliquis, dementia, MDD, depression, and HTN presenting to the emergency department today after a brief syncopal episode and right hip pain. Patient's physical exam was as noted in the physical exam portion of this chart. Patient's blood work was unremarkable. Patient's right hip x-ray showed an acute comminuted subtrochanteric/intertrochanteric right hip fracture. Patient's chest XR was unremarkable. Patient's head and c-spine CTs showed no acute process. I spoke to orthopedics curriculum and instruction specialist who recommended the patient be medically admitted and jarrell held tonight. I spoke to the hospitalist team who agreed to admission. I explained my physical exam findings as well as all test results to the patient and the patient's son. I answered all questions asked by the patient and the patient's son. Patient and the patient's son verbalized agreement and understanding with this treatment plan and admission. Patient is a DNR/DNI with an up to date MOLST form on file. Differential Diagnosis Differential Diagnoses: The differential diagnosis associated with the presentation includes right hip fracture, syncopal episode, dementia Admission/Observation Consideration of admission/observation: Escalation of care including admission/observation considered Patient will be admitted as noted in the MDM portion of this note. Consult Healthcare Provider Management of the patient was discussed with: Hospitalist (agreed to admission) and Multimedia Educational Specialist (spoke to orthopedics as noted in the MDM portion of this chart) Lab Data [facility] Lab Attestation statement: I reviewed the patient's lab results. My interpretation of these studies and their corresponding values is that they are grossly normal. 08/11/22 18:27 08/11/22 18:27 Labs: Lab Results 08/11/22 08/11/22 Range/Units 18:27 18:27 WBC 10.5 (4.8-10.8) X10*3/uL RBC 3.78 L (4.20-5.50) X10*6/uL Hgb 11.9 L (12.0-16.0) g/dl Hct 35.1 L (37.0-47.0) % MCV 92.9 (80.0-98.0) fL MCH 31.5 (27.0-33.0) pg MCHC 33.9 (31.0-35.0) g/dl RDW 12.8 (11.0-16.0) % Plt Count 221 (160-400) X10*3/uL MPV 11.2 (9.4-12.3) fL Immature Gran % (Auto) 0.5 H (0.0-0.4) % Neut % (Auto) 76.8 H (45-73) % Lymph % (Auto) 16.7 L (20-40) % [place] % (Auto) 4.8 (2-11) % Eos % (Auto) 0.9 (0-4) % Baso % (Auto) 0.3 (0-2) % Lymph # (Auto) 1.8 (1.2-4.9) X10*3/uL [place] # (Auto) 0.5 (0.1-1.2) X10*3/uL Eos # (Auto) 0.1 (0.0-0.4) X10*3/uL Baso # (Auto) 0.0 (0.0-0.2) X10*3/uL Abs Immat Gran (auto) 0.05 H (0.00-0.03) X10*3/uL Absolute Neuts (auto) 8.0 (2.0-8.3) x10*3/uL Absolute Nucleated RBC 0.000 (0.0-0.012) X10*3/uL Nucleated RBC % (auto) 0.0 (0.0-0.2) /100WBC Sodium 141 (135-145) mmol/L Potassium 4.1 (3.3-5.1) mmol/L Chloride 102 (96-108) mmol/L Carbon Dioxide 27 (22-29) mmol/L Anion Gap 16 (12-20) BUN 37 H (9-16) mg/dL Creatinine 1.25 (0.5-1.4) mg/dL Estim Creat Clear Calc 21.2 Estimated GFR 41 Random Glucose 145 H (60-115) mg/dL Calcium 10.2 (8.4-10.2) mg/dL Magnesium 2.0 (1.6-2.6) mg/dL Total Bilirubin 0.6 (0.0-1.0) mg/dL AST 19 (5-31) U/L ALT 16 (0-31) U/L Alkaline Phosphatase 61 (39-117) U/L Total Protein 6.5 (6.5-8.0) g/dL Albumin 3.5 (3.5-5.0) g/dL Independent Interpretation I performed an independent interpretation of an: Plain X-Ray and CT Scan Interpretation: My interpretation is in agreement with the radiologist's impression of these imaging studies. -- EXAMINATION: CT CERVICAL SPINE WITHOUT CONTRAST; UNENHANCED CT OF THE HEAD. CLINICAL INFORMATION: New episode of syncope. Fall.? COMPARISON: CT head 10/03/2021. CT head and cervical spine 05/30/2021.? TECHNIQUE: Routine unenhanced CT of the head with multiple coronal and sagittal reformatted images; routine unenhanced CT of the cervical spine with multiple coronal and sagittal reformatted images. This CT examination was performed using dose optimization techniques as appropriate, variously including the following: *Automated exposure control *Adjustment of mA and/or kV according to patient size (this includes techniques or standardized protocols for targeted exams where dose is matched to indication/reason for exam; i.e. extremities or head) *Use of iterative reconstruction technique DLP: 1122 mGy-cm FINDINGS: CT head: Moderate diffuse commensurate prominence of ventricles and sulci is noted. Moderate subcortical and periventricular white matter patchy hypodensities are visualized. No intrarenal hemorrhage, tumors or definitive acute infarcts visualized. Right orbital metallic density is noted and is suspicious for a chronic glaucoma drainage device similar to findings present on the 08/09/2022 examination. Images are suboptimal secondary to motion artifact. No significant opacification of the visualized paranasal sinuses, mastoid air cells and middle ear cavities. Repeat images demonstrate less motion artifact than on the initial images. A right ocular lens extraction is visualized. CT cervical spine: Accentuation of the cervical lordosis is present. Grade 1 degenerative retrolisthesis of C3 on C4 is present. These findings are grossly unchanged compared with 05/30/2021. No vertebral body compression deformities. Marked diffuse osteopenia. The current examination demonstrates physiologic rotatory subluxation of C1 and C2 with rightward deviation of the head. Dense bilateral carotid bulb calcific atherosclerotic plaques are noted. No prevertebral fluid collections or soft tissue inflammatory changes noted. The thyroid is grossly normal in appearance. CT/CT cervical spine wo IV con IMPRESSION: CT HEAD: 1.? No acute intracranial abnormalities. 2.? Moderate white matter chronic small vessel ischemic disease. ? CT CERVICAL SPINE: 1.? No acute abnormalities. 2.? Advanced chronic spondylosis of the cervical spine unchanged compared with 05/30/2021. 3.? Dense bilateral carotid bulb calcific atherosclerotic plaques. ? Dictated By: Juan Carlos Barlow MD Signed By: Electronically signed by Juan Carlos Barlow MD 08/11/22 1853 EXAMINATION: SUPINE CHEST, SINGLE VIEW PELVIS WITH 3 ADDITIONAL VIEWS RIGHT HIP CLINICAL INFORMATION: Hip pain after fall, preop? COMPARISON: Chest radiograph 10/19/2021 CT abdomen and pelvis 09/10/2020 TECHNIQUE: Single supine view chest, 2 views pelvis with 2 additional views right hip? FINDINGS: There is a comminuted subtrochanteric/intertrochanteric fracture involving the right hip. There is marked varus angulation of distal fracture fragment along with superior subluxation. The femoral acetabular joint is intact without dislocation. No other fractures are seen. Lungs appear hyperinflated compatible with COPD. Old bilateral healed rib fractures are seen. Kyphoplasty change mid thoracic spine with compression fracture of T9. Heart size within normal limits. No infiltrates, effusions or lung masses. No CHF.? XR/XR chest 1V IMPRESSION: 1.? Acute comminuted subtrochanteric/intertrochanteric right hip fracture as described above. 2.? No acute intrathoracic disease. There is underlying COPD. Dictated By: Sean Cornelius MD Signed By: Electronically signed by Sean Cornelius MD 08/11/221912 Independent Historian Clinical information obtained from an independent historian. History obtained from or confirmed by: EMS (EMS provided additional history and confirmed the history provided by the patient and her son) and Other (patient's son provided additional history and confirmed the history provided by EMS and the patient) External Record Review External record reviewed: Other (reviewed all records from the nursing facility the patient came from) Chronic Conditions Patient?s care impacted by: Hypertension and Other (atrial fibrillation) Critical Care Time Critical Care Time Critical Care Time: Yes Total Critical Care Time: 45 Attestation: I spent 45 minutes of Critical Care Time with this patient. This does not include time spent on separately reported billable procedures. Discharge Plan Discharge Clinical Impression: Closed hip fracture Prescriptions: No Action acetaminophen 325 mg Tablet 650 mg PO Q6H PRN (Reason: Pain, Mild (Pain Scale 1-3)) 30 Days Qty: 60 0RF olanzapine 2.5 mg Tablet 2.5 mg PO BID Qty: 60 0RF mirtazapine 15 mg Tablet 15 mg PO BEDTIME Qty: 30 0RF duloxetine 30 mg Capsule,Delayed Release(Dr/Ec) 30 mg PO BID 30 Days Qty: 60 0RF atorvastatin 40 mg tablet 40 mg PO BEDTIME Qty: 30 5RF digoxin 125 mcg (0.125 mg) tablet 125 mcg PO 90 Days Qty: 52 3RF Rx Instructions: Please call and schedule an appt calcium carbonate-vitamin D3 [Caltrate with Vitamin D3] 600 mg(1,500mg) -800 unit Tablet 1 tab PO DAILY 30 Days Qty: 30 0RF Eliquis 2.5 mg tablet 2.5 mg PO BID 30 Days Qty: 60 5RF trazodone 50 mg tablet 5 mg PO BID@0900,1200 melatonin 3 mg capsule 3 mg PO BEDTIME metoprolol tartrate 50 mg tablet 50 mg PO BID trazodone 100 mg tablet 50 mg PO DAILY@2000
[2022-08-11 17:19] VITALS: BP 130/70; BP 169/85; PULSE 50; PULSE 74; RESP 18; TEMP 37.1; BMI 15.6
[2022-08-11 17:25] VITALS: BP 169/85; PULSE 113; RESP 18; TEMP 37.1; O2SAT 98
--- NOTE | 2022-08-11 17:28 | PC.NURSE ---
Alert but confused. Oriented to person only. Per ems and son report found on the floor unresponsive not responding to verbal or tactile stimulation. Per ems patient sitting in chair upon their arrival, hypotensive and bradycardic. Son sating that she also [facility]. Upon assessment right hip externally rotated and pain when touched. Patient in visible pain with facial grimacing. Off to CT at this time.
--- NOTE | 2022-08-11 18:16 | PC.NURSE ---
[facility] from [facility] to ED for eval after being found unresponsive to verbal and tactile stimulation.
[2022-08-11 18:30] LABS: MANUAL DIFF FLAG NO
[2022-08-11 18:32] LABS: Basophils Percent Auto 0.3 % (0-2); Eosinophils Absolute Auto 0.1 X10*3/uL (0.0-0.4); Eosinophils Percent Auto 0.9 % (0-4); Hematocrit 35.1 % (37.0-47.0); Hemoglobin 11.9 g/dl (12.0-16.0); Imm Gran Abs Auto 0.05 X10*3/uL (0.00-0.03); Imm Gran Pct Auto 0.5 % (0.0-0.4); Lymphocytes Absolute Auto 1.8 X10*3/uL (1.2-4.9); Lymphocytes Percent Auto 16.7 % (20-40); Mean Corpuscular HGB Conc 33.9 g/dl (31.0-35.0); Mean Corpuscular Hemoglobin 31.5 pg (27.0-33.0); Mean Corpuscular Volume 92.9 fL (80.0-98.0); Mean Platelet Volume 11.2 fL (9.4-12.3); Monocytes Absolute Auto 0.5 X10*3/uL (0.1-1.2); Monocytes Percent Auto 4.8 % (2-11); Neutrophils Percent Auto 76.8 % (45-73); Platelet Count 221 X10*3/uL (160-400); Red Blood Count 3.78 X10*6/uL (4.20-5.50); Red Cell Distribution Width 12.8 % (11.0-16.0); White Blood Count 10.5 X10*3/uL (4.8-10.8)
[2022-08-11 18:37] VITALS: BP 152/81; PULSE 86; RESP 10; O2SAT 97
[2022-08-11 18:39] VITALS: RESP 18
[2022-08-11] MEDS: fentaNYL citrate/PF 100 MCG/2 ML VIAL 25 MCG IVPUSH (18:39)
--- NOTE | 2022-08-11 18:42 | PC.NURSE ---
rr 18, pain medicine given per order. Son at bedside taking he is taking her glasses home with him.
[2022-08-11 18:49] LABS: Alanine Aminotransferase 16 U/L (0-31); Albumin Level 3.5 g/dL (3.5-5.0); Alkaline Phosphatase 61 U/L (39-117); Anion Gap 16 (12-20); Aspartate Amino Transferase 19 U/L (5-31); Bilirubin Total 0.6 mg/dL (0.0-1.0); Blood Urea Nitrogen 37 mg/dL (9-16); Calcium 10.2 mg/dL (8.4-10.2); Carbon Dioxide 27 mmol/L (22-29); Chloride 102 mmol/L (96-108); Creatinine Clr Calc Pharmacy 21.2; Estimated Glomerular Filt Rate 41; Glucose Random 145 mg/dL (60-115); Potassium 4.1 mmol/L (3.3-5.1); Sodium 141 mmol/L (135-145); Total Protein 6.5 g/dL (6.5-8.0)
--- NOTE | 2022-08-11 18:50 | P.EN_ITS ---
Event Note Date of Service: 08/11/22 Event Note: Orthopedics was consulted for right hip inter/sub troch fracture: -Unresponsive to verbal cues or stimulation -Lives in Memory Care unit in [place] -Medicine to admit and obtain preop clearance -[facility] significant for: -A. Fib on Eliquis -Hold Eliquis -Dementia - Does not sign her own consents - Son Akil is contact -Heart Failure -HTN -MDD -NPO Saturday08/13/22 at 12:01am -Spoke with Patient's Son Akil at [phone] I discussed the case with Dr. Romo and explained the extent of the injury to the patients Son Akil and options available which include surgical intervention. I explained the procedure in detail along with the length of recovery and rehab course. I explained the risk, benefits and alternatives. Risk including, but not limited to infection, blood clots, bleeding, non union or malunion and nerve/tissue damage to surrounding areas and potentially mortality. I answered all their questions and with their understanding they have consented to move forward with Operative Fixation of the right hip. The patient will be T&S and med clearance to be obtained. Time Spent With Patient Time: Total time managing care of this patient today ____ minutes.
--- NOTE | 2022-08-11 20:01 | PM.IMHP ---
History of Present Illness Date of Service: 08/11/22 Chief Complaint: fall, broken hip 81-year-old female with past medical history of AFib on Eliquis, depression, dementia, diastolic heart failure, GERD, HTN, who comes in from [facility] unit after having a fall. Patient was seen in the hospital on 08/09 for evaluation of an on witnessed fall and ? encephalopathy/ word salad , after evaluation, patient was [facility] back [facility], returns the same day after she started having another fall/syncope with complaints of right hip pain. On my interview patient is sleeping comfortably, arousable on verbal command, extremely demented, oriented to self only, unable to get much history. Negative review of system. On arrival to the ED patient hemodynamically stable with no significant abnormal vitals Labs are significant for WBC count of 13.4, hemoglobin of 10.4, hematocrit 31.2, labs otherwise unremarkable imaging showed acute comminuted subtrochanteric / intertrochanteric right hip fracture patient son does want her to have this surgery for repair as she was ambulatory prior to the fall Review of Systems Review of Systems: Yes all other systems are reviewed and are negative [facility] Medical History Anxiety Atrial fibrillation with controlled ventricular rate Dementia Depression Diastolic heart failure GERD (gastroesophageal reflux disease) History of rib fracture HTN (hypertension) Major depressive disorder, 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 Father No problems noted. Surgical History No pertinent past surgical history Social History Household Members: Family Household Members Other:: SonAkil Housing: Assisted Living Facility Housing Other:: [facility] Do you presently have visiting nurse or other home services: Yes ([facility] services) Unable to assess alcohol history related to: Unable to respond Alcohol intake: former Patient Tobacco Use Status: Never used Tobacco Smoked in Last 30 Days: No Second Hand Smoke Exposure: No Use of substances other than those prescribed or required for medical reasons: Unable to respond Currently Displaying Signs/Symptoms of Drug Intoxication Withdrawal: No Have you been hit, kicked, punched, or otherwise hurt by someone within the past year? If so, by whom?: No Are you made to feel afraid or neglected: No Advance Directives: Yes Advance Directives on File: Yes Advance Directives Date on File: 04/19/21 Do you have thoughts of harming others: None Do you have a plan to hurt others: No Plan Recently lost weight without trying: Unsure Nutrition Risks: Dental problems Patient : No : No service: No Current occupational status: retired Sexual orientation: Straight/Heterosexual Meds Allergies Allergy/AdvReac Type Severity Reaction Status Date / Time morphine AdvReac Severe Alternate Verified 06/19/22 12:45 mental status Active Medications: Current Medications Acetaminophen (Acetaminophen 325 Mg Tablet) 650 mg PO Q6H PRN PRN Reason: Pain, Mild (Pain Scale 1-3) Docusate Sodium (Docusate Sodium 100 Mg Capsule) 100 mg PO DAILY PRN PRN Reason: Constipation Ondansetron HCl (Ondansetron Hcl 4 Mg/2 Ml Vial) 4 mg IVPUSH Q8H PRN PRN Reason: Nausea and Vomiting Pharmacy Consult (Consult Rx Perform Med Rec) 1 each MISCELLANE ONCE PRN PRN Reason: Consult order Sodium Chloride (0.9 % Sodium Chloride Flush 3 Ml Syringe) 3 ml IVFLUSH [facility] Medications Medication Instructions Recorded Confirmed Last Taken Type melatonin 3 mg capsule 3 mg PO BEDTIME 06/19/22 08/09/22 Unknown History metoprolol tartrate 50 mg tablet 50 mg PO BID 06/19/22 08/09/22 Unknown History trazodone 100 mg tablet 50 mg PO DAILY@199906/19/22 08/09/22 Unknown History trazodone 50 mg tablet 5 mg PO BID@0900,1200 08/09/22 08/09/22 Unknown History Physical Exam Vital Signs and Narrative: Vital Signs: Last Vital Signs Temp 98.8 F 08/11/22 17:25 Pulse 86 08/11/22 18:37 Resp 18 08/11/22 18:39 BP 152/81 H 08/11/22 18:37 Pulse Ox 97 08/11/22 18:37 O2 Del Method Room Air 08/11/22 18:37 BMI result Body Mass Index 15.6 Const: General: cooperative and no acute distress Eyes: General: appearance normal, both eyes and all related structures Resp: Effort & Inspection: normal respiratory effort Auscultation: clear to auscultation bilaterally Cardio: Rate: regular rate Rhythm: regular rhythm GI: Palpation (GI): Soft to palpation Auscultation: normal bowel sounds Skin: General skin exam: no rashes or lesions noted Extrem: Other: right lower extremity shorter than the left General: Yes normal to inspection and Yes no pedal edema Results Labs 08/11/22 18:27 08/11/22 18:27 Labs: Laboratory Results - last 24 hr 08/11/22 08/11/22 18:27 18:27 MCV 92.9 MCH 31.5 MCHC 33.9 RDW 12.8 Plt Count 221 MPV 11.2 Immature Gran % (Auto) 0.5 H Neut % (Auto) 76.8 H Lymph % (Auto) 16.7 L [place] % (Auto) 4.8 Eos % (Auto) 0.9 Baso % (Auto) 0.3 Lymph # (Auto) 1.8 [place] # (Auto) 0.5 Eos # (Auto) 0.1 Baso # (Auto) 0.0 Abs Immat Gran (auto) 0.05 H Absolute Neuts (auto) 8.0 Absolute Nucleated RBC 0.000 Nucleated RBC % (auto) 0.0 Anion Gap 16 Estim Creat Clear Calc 21.2 Estimated GFR 41 Random Glucose 145 H Calcium 10.2 Magnesium 2.0 Total Bilirubin 0.6 AST 19 ALT 16 Alkaline Phosphatase 61 Total Protein 6.5 Albumin 3.5 Imaging Radiologist's Impressions: Impressions Cervical Spine CT 08/11/22 17:36 IMPRESSION: CT HEAD: 1. No acute intracranial abnormalities. 2. Moderate white matter chronic small vessel ischemic disease. CT CERVICAL SPINE: 1. No acute abnormalities. 2. Advanced chronic spondylosis of the cervical spine unchanged compared with 05/30/2021. 3. Dense bilateral carotid bulb calcific atherosclerotic plaques. Head CT 08/11/22 17:36 IMPRESSION: CT HEAD: 1. No acute intracranial abnormalities. 2. Moderate white matter chronic small vessel ischemic disease. CT CERVICAL SPINE: 1. No acute abnormalities. 2. Advanced chronic spondylosis of the cervical spine unchanged compared with 05/30/2021. 3. Dense bilateral carotid bulb calcific atherosclerotic plaques. Chest X-Ray 08/11/22 17:48 IMPRESSION: 1. Acute comminuted subtrochanteric/intertrochanteric right hip fracture as described above. 2. No acute intrathoracic disease. There is underlying COPD. Hip/Pelvis X-Ray 08/11/22 17:48 IMPRESSION: 1. Acute comminuted subtrochanteric/intertrochanteric right hip fracture as described above. 2. No acute intrathoracic disease. There is underlying COPD. Assessment and Plan (1) Closed hip fracture: Status: Acute Plan 81-year-old female with past medical history of AFib on Eliquis, dementia, diastolic heart failure, GERD, HTN, and depression presents to the hospital after a fall and found to have hip fracture # acute comminuted right hip fracture - Eliquis on hold - pain control - orthopedics consulted # ? syncope - had multiple unwitnessed falls at prison - question syncopal episodes - will admit to telemetry - patient has known history of AFib, is already on Eliquis and atorvastatin # AFib - hold Eliquis - continue metoprolol and digoxin # depression - continue duloxetine DVT prophylaxis: SCDs Given patient's need for further evaluation and surgical intervention of hip fracture patient will require minimum 2 nights inpatient hospital stay for further management and monitoring Time Spent With Patient Time: Total time managing care of this patient today ____ minutes. Quality Stroke Does the patient have a stroke diagnosis?: No VTE Prior VTE?: No VTE Risk Level:: Surgical - very high VTE Device Contraindication: N/A - Device Ordered VTE Drug Contraindication: Treatment Not Indicated
[2022-08-11 21:11] VITALS: BP 132/81; PULSE 97; RESP 20; TEMP 36.2; O2SAT 97
[2022-08-11 21:13] VITALS: BMI 16.5
[2022-08-11] MEDS: 0.9 % Sodium Chloride Flush 3 ML SYRINGE IVFLUSH (21:40)
[2022-08-12] VITALS (8 sets, daily range): BP systolic 125–137; BP diastolic 60–90; PULSE 84–126; RESP 14–18; TEMP 36–37; O2SAT 91–97
[2022-08-12 04:16] LABS: MANUAL DIFF FLAG NO
[2022-08-12 04:18] LABS: Basophils Percent Auto 0.1 % (0-2); Hematocrit 31.2 % (37.0-47.0); Hemoglobin 10.4 g/dl (12.0-16.0); Imm Gran Abs Auto 0.04 X10*3/uL (0.00-0.03); Imm Gran Pct Auto 0.3 % (0.0-0.4); Lymphocytes Absolute Auto 1.1 X10*3/uL (1.2-4.9); Lymphocytes Percent Auto 8.4 % (20-40); Mean Corpuscular HGB Conc 33.3 g/dl (31.0-35.0); Mean Corpuscular Hemoglobin 30.9 pg (27.0-33.0); Mean Corpuscular Volume 92.6 fL (80.0-98.0); Mean Platelet Volume 11.3 fL (9.4-12.3); Monocytes Absolute Auto 0.7 X10*3/uL (0.1-1.2); Monocytes Percent Auto 5.1 % (2-11); Neutrophils Absolute Auto 11.5 x10*3/uL (2.0-8.3); Neutrophils Percent Auto 86.1 % (45-73); Platelet Count 240 X10*3/uL (160-400); Red Blood Count 3.37 X10*6/uL (4.20-5.50); Red Cell Distribution Width 12.9 % (11.0-16.0); White Blood Count 13.4 X10*3/uL (4.8-10.8)
[2022-08-12 04:34] LABS: Anion Gap 15 (12-20); Blood Urea Nitrogen 38 mg/dL (9-16); Calcium 9.8 mg/dL (8.4-10.2); Carbon Dioxide 24 mmol/L (22-29); Chloride 105 mmol/L (96-108); Creatinine Clr Calc Pharmacy 23.9; Estimated Glomerular Filt Rate 44; Glucose Random 141 mg/dL (60-115); Potassium 4.6 mmol/L (3.3-5.1); Sodium 139 mmol/L (135-145)
[2022-08-12] MEDS: HYDROmorphone HCl 0.5 MG/0.5 ML SYRINGE IVPUSH ×2 (07:50→14:29)
[2022-08-12] MEDS: 0.9 % Sodium Chloride Flush 3 ML SYRINGE IVFLUSH ×3 (07:51→20:40)
--- NOTE | 2022-08-12 10:25 | PHA.MEDREC ---
Pharmacy Consult ? Medication Reconciliation Pharmacy has completed the medication reconciliation. Called [facility] to confirm meds. Patient takes metoprolol tart 75mg bid. Patient also takes trazodone 25mg@0900,1200 and trazodone 50mg bedtime.
--- NOTE | 2022-08-12 11:54 | HO.PM.IMPN ---
Subjective Subjective Date of Service: 08/12/22 Interval History: patient awake alert, eating breakfast, complaining of pain, unable to further provide detail history no acute events overnight, no behavioral changes noted. Review of Systems unable to do review of system due to underlying dementia Physical Exam Vital Signs: Vital Signs: Last Vital Signs Temp 98.5 F 08/12/22 07:40 Pulse 100 08/12/22 07:40 Resp 18 08/12/22 07:50 BP 134/90 H 08/12/22 07:40 Pulse Ox 97 08/12/22 07:40 O2 Del Method Room Air 08/12/22 07:40 BMI result Body Mass Index 16.5 Const: Other: Gen: awake alert, in no acute distressl HEENT: sclera anicteric, moist mucus membranes Neck: supple Lungs: clear to auscultation bilaterally Heart: irregularly irregular Abd: soft, non-tender, non-distended, bowel sounds audible Ext: no edema, right lower extremity shorter than left. Skin: warm/well-perfused Neuro: alert, clear speech Psych: poor insight Objective Data Active Medications Acetaminophen (Acetaminophen 325 Mg Tablet) 650 mg PO Q6H PRN PRN Reason: Pain, Mild (Pain Scale 1-3) Docusate Sodium (Docusate Sodium 100 Mg Capsule) 100 mg PO DAILY PRN PRN Reason: Constipation Hydromorphone HCl (Hydromorphone Hcl 0.5 Mg/0.5 Ml Syringe) 0.5 mg IVPUSH Q4H PRN; Protocol PRN Reason: Pain, Severe (Pain Scale 7-10) Last Admin: 08/12/22 07:50 Dose: 0.5 mg Documented By: GERDA Ondansetron HCl (Ondansetron Hcl 4 Mg/2 Ml Vial) 4 mg IVPUSH Q8H PRN PRN Reason: Nausea and Vomiting Pharmacy Consult (Consult Rx Perform Med Rec) 1 each MISCELLANE ONCE PRN PRN Reason: Consult order Sodium Chloride (0.9 % Sodium Chloride Flush 3 Ml Syringe) 3 ml IVFLUSH [facility] Last Admin: 08/12/22 07:51 Dose: 3 ml Documented By: COTCORNELL Labs 08/12/22 04:04 08/12/22 04:04 Labs: Laboratory Results - last 24 hr 08/11/22 08/11/2223 18:27 18:27 04:04 MCV 92.9 92.6 MCH 31.5 30.9 MCHC 33.9 33.3 RDW 12.8 12.9 Plt Count 221 240 MPV 11.2 11.3 Immature Gran % (Auto) 0.5 H 0.3 Neut % (Auto) 76.8 H 86.1 H Lymph % (Auto) 16.7 L 8.4 L [place] % (Auto) 4.8 5.1 Eos % (Auto) 0.9 0.0 Baso % (Auto) 0.3 0.1 Lymph # (Auto) 1.8 1.1 L [place] # (Auto) 0.5 0.7 Eos # (Auto) 0.1 0.0 Baso # (Auto) 0.0 0.0 Abs Immat Gran (auto) 0.05 H 0.04 H Absolute Neuts (auto) 8.0 11.5 H Absolute Nucleated RBC 0.000 0.000 Nucleated RBC % (auto) 0.0 0.0 Anion Gap 16 Estim Creat Clear Calc 21.2 Estimated GFR 41 Random Glucose 145 H Calcium 10.2 Magnesium 2.0 Total Bilirubin 0.6 AST 19 ALT 16 Alkaline Phosphatase 61 Total Protein 6.5 Albumin 3.5 Blood Type Antibody Screen 08/12/22 08/12/22 04:04 04:04 MCV MCH MCHC RDW Plt Count MPV Immature Gran % (Auto) Neut % (Auto) Lymph % (Auto) [place] % (Auto) Eos % (Auto) Baso % (Auto) Lymph # (Auto) [place] # (Auto) Eos # (Auto) Baso # (Auto) Abs Immat Gran (auto) Absolute Neuts (auto) Absolute Nucleated RBC Nucleated RBC % (auto) Anion Gap 15 Estim Creat Clear Calc 23.9 Estimated GFR 44 Random Glucose 141 H Calcium 9.8 Magnesium Total Bilirubin AST ALT Alkaline Phosphatase Total Protein Albumin Blood Type AB Positive Antibody Screen NEGATIVE Assessment and Plan (1) Closed hip fracture: Status: Acute (2) Essential hypertension: Status: Acute (3) Persistent atrial fibrillation: Status: Acute Plan 81-year-old female with past medical history of AFib on Eliquis, dementia,? diastolic heart failure, GERD, HTN, and depression presents to the hospital after a fall and found to have hip fracture #? acute comminuted right hip fracture - ? continue pain control, Eliquis on hold -? seen by Ortho they plan right hip surgery at a.m. will add scheduled oxycodone and Tylenol continue IV as needed Dilaudid obtain Cardiology consultation for preop clearance. mild leukocytosis likely reactive. follow CBC. # ?? syncope -? had multiple unwitnessed falls at intermediate,? question syncopal episodes -? continue telemetry continue metoprolol, follow clinical course, orthostatic blood pressures, on multiple psychiatric medications will hold daytime dose of trazodone continue duloxetine and mirtazapine # ch. persistent AFib -? hold Eliquis -? continue metoprolol and digoxin #? depression -? continue duloxetine, mirtazepine ,zyprexa and adjust dose of trazodone # unspecified advanced dementia continue home meds ?DVT prophylaxis:? SCDs ?Given patient's need for further evaluation and surgical intervention of hip fracture patient will need continued inpatient hospitalization for further management and monitoring. Time Spent With Patient Time: Total time managing care of this patient today ____ minutes. Quality Stroke Does the patient have a stroke diagnosis?: No VTE Prior VTE?: No VTE Risk Level:: Surgical - very high VTE Device Contraindication: N/A - Device Ordered VTE Drug Contraindication: Treatment Not Indicated
[2022-08-12] MEDS: oxyCODONE HCl Immed Release 5 MG TABLET PO ×2 (14:07→20:31)
[2022-08-12] MEDS: Dextrose 5 % and Lactated Ring 1,000 ML 50 ML IVCONT (15:31)
[2022-08-12] MEDS: Metoprolol Tartrate 50 MG TABLET PO (15:31)
--- NOTE | 2022-08-12 16:02 | MHC.CM.PN ---
CM CALLED PTS SON/HCP, ROBERT [phone] HE REPORTS THE PT RESIDES AT THE [facility] HE REPORTS SHE USUALLY USES A ROLLATOR HCP IS ON FILE PCP: MAY AWKUL IMM DELIVERED COLLEEN IS AWARE PT WILL LIKELY NEED STR PRIOR TO RETURNING TO THE [facility] SOME REFERRALS MADE, HE WILL BE IN ON SATURDAY TO SEE PT AND F/U ON DC PLANNING
[2022-08-12] MEDS: DULoxetine HCl 30 MG CAPSULE.DR PO (20:29)
[2022-08-12] MEDS: Metoprolol Tartrate 25 MG TABLET 75 MG PO (20:29)
[2022-08-12] MEDS: Docusate Sodium 100 MG CAPSULE PO (20:29)
[2022-08-12] MEDS: Melatonin 3 MG TABLET PO (20:29)
[2022-08-12] MEDS: Atorvastatin Calcium 40 MG TABLET PO (20:29)
[2022-08-12] MEDS: traZODone HCL 25 MG HALFTAB PO (20:29)
[2022-08-12] MEDS: OLANZapine 2.5 MG TABLET PO (20:30)
[2022-08-12] MEDS: Mirtazapine 15 MG TABLET PO (20:30)
[2022-08-13] MEDS: HYDROmorphone HCl 0.5 MG/0.5 ML SYRINGE IVPUSH ×3 (03:22→19:42)
[2022-08-13 03:59] VITALS: BP 138/65; PULSE 95; RESP 18; TEMP 36.6; O2SAT 94
[2022-08-13 07:19] VITALS: BP 136/59; PULSE 94; RESP 16; TEMP 36.6; O2SAT 92
--- NOTE | 2022-08-13 08:09 | PM.HPOR ---
History of Present Illness History of Present Illness Date of Service: 08/13/22 Chief complaint: Hip fracture Narrative: Stephany Joe is a 81 year old female past medical history of AFib on Eliquis, depression, dementia, diastolic heart failure, GERD, HTN, who comes in from a Memory unit in [place] after having a fall.? Patient was seen in the hospital on 08/09 for evaluation of an on witnessed fall and ? encephalopathy/ word salad ,? after evaluation, patient was sent back to [facility], returned two days later after she reportedly complained of right hip pain but was also found in her chair unresponsive according to her son Akil the patient did not respond to verbal or physical stimuli for roughly 2 mins.? On my interview patient is sleeping comfortably in bed. 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 Father No problems noted. Surgical History Surgical History No pertinent past surgical history Social History Social History Household Members: Family Household Members Other:: Son, Akil Joe Housing: Assisted Living Facility Housing Other:: [facility] Do you presently have visiting nurse or other home services: Yes (VNA services) Unable to assess alcohol history related to: Unable to respond Alcohol intake: former Patient Tobacco Use Status: Never used Tobacco Smoked in Last 30 Days: No Second Hand Smoke Exposure: No Use of substances other than those prescribed or required for medical reasons: Unable to respond Currently Displaying Signs/Symptoms of Drug Intoxication Withdrawal: No Have you been hit, kicked, punched, or otherwise hurt by someone within the past year? If so, by whom?: No Are you made to feel afraid or neglected: No Advance Directives: Yes Advance Directives on File: Yes Advance Directives Date on File: 04/19/21 Do you have thoughts of harming others: None Do you have a plan to hurt others: No Plan Recently lost weight without trying: Unsure Nutrition Risks: Dental problems Patient : No : No service: No Current occupational status: retired Sexual orientation: Straight/Heterosexual Meds Allergies Allergy/AdvReac Type Severity Reaction Status Date / Time morphine AdvReac Severe Alternate Verified 06/19/22 12:45 mental status Active Medications: Current Medications Acetaminophen (Acetaminophen 325 Mg Tablet) 650 mg PO Q6H PRN PRN Reason: Pain, Mild (Pain Scale 1-3) Atorvastatin Calcium (Atorvastatin Calcium 40 Mg Tablet) 40 mg PO BEDTIME [facility] Last Admin: 08/12/22 20:29 Dose: 40 mg Digoxin (Digoxin 0.125 Mg Tablet) 0.125 mg PO [facility] Docusate Sodium (Docusate Sodium 100 Mg Capsule) 100 mg PO DAILY PRN PRN Reason: Constipation Docusate Sodium (Docusate Sodium 100 Mg Capsule) 100 mg PO BEDTIME [facility] Last Admin: 08/12/22 20:29 Dose: 100 mg Duloxetine HCl (Duloxetine Hcl 30 Mg Capsule.Dr) 30 mg PO BID [facility] Last Admin: 08/12/22 20:29 Dose: 30 mg Hydromorphone HCl (Hydromorphone Hcl 0.5 Mg/0.5 Ml Syringe) 0.5 mg IVPUSH Q6H PRN; Protocol PRN Reason: Pain, Severe (Pain Scale 7-10) Last Admin: 08/13/22 03:22 Dose: 0.5 mg Dextrose/Lactated Ringer's (D5lr) 1,000 mls @ 50 mls/hr IVCONT .Q20H [facility] Last Admin: 08/12/22 15:31 Dose: 50 mls/hr Cefazolin Sodium/Dextrose (Ancef) 2 gm in 50 mls @ 100 mls/hr IV PREOP ONE Stop: 08/13/22 14:29 Melatonin (Melatonin 3 Mg Tablet) 3 mg PO BEDTIME [facility] Last Admin: 08/12/22 20:29 Dose: 3 mg Metoprolol Tartrate (Metoprolol Tartrate 25 Mg Tablet) 75 mg PO BID [facility]; Protocol Last Admin: 08/12/22 20:29 Dose: 75 mg Mirtazapine (Mirtazapine 15 Mg Tablet) 15 mg PO BEDTIME [facility] Last Admin: 08/12/22 20:30 Dose: 15 mg Olanzapine (Olanzapine 2.5 Mg Tablet) 2.5 mg PO BID [facility] Last Admin: 08/12/22 20:30 Dose: 2.5 mg Ondansetron HCl (Ondansetron Hcl 4 Mg/2 Ml Vial) 4 mg IVPUSH Q8H PRN PRN Reason: Nausea and Vomiting Oxycodone HCl (Oxycodone Hcl Immed Release 5 Mg Tablet) 5 mg PO TID [facility] Last Admin: 08/12/22 20:31 Dose: 5 mg Pharmacy Consult (Consult Rx Perform Med Rec) 1 each MISCELLANE ONCE PRN PRN Reason: Consult order Sodium Chloride (0.9 % Sodium Chloride Flush 3 Ml Syringe) 3 ml IVFLUSH QSHIFT [facility] Last Admin: 08/12/22 20:40 Dose: 3 ml Trazodone HCl (Trazodone Hcl 25 Mg Halftab) 25 mg PO BEDTIME [facility] Last Admin: 08/12/22 20:29 Dose: 25 mg Home Medications Medication Instructions Recorded Confirmed Last Taken Type melatonin 3 mg capsule 3 mg PO BEDTIME 06/19/22 08/12/22 Unknown History metoprolol tartrate 50 mg tablet 75 mg PO BID 06/19/22 08/12/22 Unknown History trazodone 50 mg tablet 25 mg PO BID@0900,1200 08/09/22 08/12/22 Unknown History trazodone 50 mg tablet 50 mg PO BEDTIME 08/12/22 08/12/22 Unknown History Physical Exam Vital Signs: Vital Signs: Last Vital Signs Temp 97.8 F 08/13/22 07:19 Pulse 94 08/13/22 07:19 Resp 16 08/13/22 07:19 BP 136/59 L 08/13/22 07:19 Pulse Ox 92 08/13/22 07:19 O2 Del Method Room Air 08/13/22 07:19 BMI result Body Mass Index 16.5 Const: General: cooperative, healthy appearing and no acute distress Resp: Effort & Inspection: normal respiratory effort and able to speak in complete sentences Cardio: Rate: regular rate Peripheral pulses: Peripheral pulses 2+ throughout GI: Palpation (GI): Soft to palpation Skin: Lesions: no lesions Rashes: no rashes Extrem: Other: Right lower extremity is shortened and externally rotated. No abrasions or laceration to the skin. Results Labs 08/12/22 04:04 08/12/22 04:04 Labs: H & H 08/11/22 08/12/22 Range/Units 18:27 04:04 Hgb 11.9 L 10.4 L (12.0-16.0) g/dl Hct 35.1 L 31.2 L (37.0-47.0) % All other labs normal. Assessment and Plan (1) Closed hip fracture: Status: Acute I discussed the case with Dr. Romo and explained the extent of the injury to the patients Son Akil and options available which include surgical intervention. I explained the procedure in detail along with the length of recovery and rehab course. I explained the risk, benefits and alternatives. Risk including, but not limited to infection, blood clots, bleeding, non union or malunion and nerve/tissue damage to surrounding areas and potentially mortality. I answered all their questions and with their understanding they have consented to move forward with Operative Fixation of the right hip. The patient will be T&S and med clearance to be obtained. Awaiting cardiology clearance this morning. Plan for OR later this afternoon if cleared. (2) Persistent atrial fibrillation: Status: Acute (3) Major depressive disorder, recurrent severe without psychotic features: Status: Acute (4) Atrial fibrillation with rapid ventricular response: Status: Acute (5) Major depressive disorder: Status: Acute (6) Delusion: Status: Acute (7) Dementia: Status: Acute (8) Acute diastolic heart failure: Status: Acute (9) Fall: Status: Acute Time Spent With Patient Time: Total time managing care of this patient today ____ minutes. Quality Stroke Does the patient have a stroke diagnosis?: No VTE Prior VTE?: No VTE Risk Level:: Surgical - very high VTE Device Contraindication: N/A - Device Ordered VTE Drug Contraindication: Treatment Not Indicated Procedures Date of Service Date of Service: 08/13/22
[2022-08-13] MEDS: Metoprolol Tartrate 25 MG TABLET 75 MG PO ×2 (08:28→20:58)
[2022-08-13] MEDS: oxyCODONE HCl Immed Release 5 MG TABLET PO ×3 (08:28→20:58)
--- NOTE | 2022-08-13 10:12 | HO.PM.IMPN ---
Subjective Subjective Date of Service: 08/13/22 Interval History: resting in bed in no distress, not verbalizing , keep saying no, no, no, is NPO for right hip surgery, vitals are stable on ivf. Review of Systems unable to obtain due to mental status Physical Exam Vital Signs: Vital Signs: Last Vital Signs Temp 97.8 F 08/13/22 07:19 Pulse 94 08/13/22 07:19 Resp 16 08/13/22 07:19 BP 136/59 L 08/13/22 07:19 Pulse Ox 92 08/13/22 07:19 O2 Del Method Room Air 08/13/22 07:19 BMI result Body Mass Index 16.5 Const: Other: Gen:? awake , in no acute distress HEENT: sclera anicteric, moist mucus membranes Neck: supple Lungs: clear to auscultation bilaterally Heart: irregularly irregular Abd: soft, non-tender, non-distended, bowel sounds audible Ext: no edema, right lower extremity shorter than left. Skin: warm/well-perfused Neuro:Awake, alert, clear speech Psych:? poor insight Objective Data Active Medications Acetaminophen (Acetaminophen 325 Mg Tablet) 650 mg PO Q6H PRN PRN Reason: Pain, Mild (Pain Scale 1-3) Atorvastatin Calcium (Atorvastatin Calcium 40 Mg Tablet) 40 mg PO BEDTIME [facility] Last Admin: 08/12/22 20:29 Dose: 40 mg Documented By: GELY Digoxin (Digoxin 0.125 Mg Tablet) 0.125 mg PO [facility] Docusate Sodium (Docusate Sodium 100 Mg Capsule) 100 mg PO DAILY PRN PRN Reason: Constipation Docusate Sodium (Docusate Sodium 100 Mg Capsule) 100 mg PO BEDTIME [facility] Last Admin: 08/12/22 20:29 Dose: 100 mg Documented By: GELY Duloxetine HCl (Duloxetine Hcl 30 Mg Capsule.) 30 mg PO BID [facility] Last Admin: 08/13/22 08:32 Dose: Not Given Documented By: SERAFIN Non-Admin Reason: NPO Hydromorphone HCl (Hydromorphone Hcl 0.5 Mg/0.5 Ml Syringe) 0.5 mg IVPUSH Q6H PRN; Protocol PRN Reason: Pain, Severe (Pain Scale 7-10) Last Admin: 08/13/22 03:22 Dose: 0.5 mg Documented By: GELY Dextrose/Lactated Ringer's (D5lr) 1,000 mls @ 50 mls/hr IVCONT .Q20H [facility] Last Admin: 08/12/22 15:31 Dose: 50 mls/hr Documented By: GERDA Cefazolin Sodium/Dextrose (Ancef) 2 gm in 50 mls @ 100 mls/hr IV PREOP ONE Stop: 08/13/22 14:29 Melatonin (Melatonin 3 Mg Tablet) 3 mg PO BEDTIME [facility] Last Admin: 08/12/22 20:29 Dose: 3 mg Documented By: GELY Metoprolol Tartrate (Metoprolol Tartrate 25 Mg Tablet) 75 mg PO BID [facility]; Protocol Last Admin: 08/13/22 08:28 Dose: 75 mg Documented By: SERAFIN Mirtazapine (Mirtazapine 15 Mg Tablet) 15 mg PO BEDTIME [facility] Last Admin: 08/12/22 20:30 Dose: 15 mg Documented By: GELY Olanzapine (Olanzapine 2.5 Mg Tablet) 2.5 mg PO BID [facility] Last Admin: 08/13/22 08:32 Dose: Not Given Documented By: SERAFIN Non-Admin Reason: NPO Ondansetron HCl (Ondansetron Hcl 4 Mg/2 Ml Vial) 4 mg IVPUSH Q8H PRN PRN Reason: Nausea and Vomiting Oxycodone HCl (Oxycodone Hcl Immed Release 5 Mg Tablet) 5 mg PO TID [facility] Last Admin: 08/13/22 08:28 Dose: 5 mg Documented By: SERAFIN Pharmacy Consult (Consult Rx Perform Med Rec) 1 each MISCELLANE ONCE PRN PRN Reason: Consult order Sodium Chloride (0.9 % Sodium Chloride Flush 3 Ml Syringe) 3 ml IVFLUSH QSHIFT [facility] Last Admin: 08/13/22 08:33 Dose: Not Given Documented By: SERAFIN Non-Admin Reason: IV Running Trazodone HCl (Trazodone Hcl 25 Mg Halftab) 25 mg PO BEDTIME [facility] Last Admin: 08/12/22 20:29 Dose: 25 mg Documented By: GELY Labs 08/12/22 04:04 08/12/22 04:04 Assessment and Plan (1) Closed hip fracture: Status: Acute (2) Essential hypertension: Status: Acute (3) Persistent atrial fibrillation: Status: Acute Plan 81-year-old female with past medical history of AFib on Eliquis, dementia,? diastolic heart failure, GERD, HTN, and depression presents to the hospital after a fall and found to have hip fracture #? acute comminuted right hip fracture - ? continue schedule oxycodone and Tylenol, Eliquis on hold -? seen by Ortho they plan right hip surgery today. seen by Cardiology has intermediate risk for surgery. mild leukocytosis likely reactive, normal urinary analysis and chest x-ray hematocrit dropped will transfuse follow CBC # acute on chronic normocytic anemia no active bleeding noted, no hematemesis, no melena likely due to recurrent fall, bruising and fracture. hematocrit dropped will transfuse 1 unit of packed RBC # ?? syncope -? [facility],? question syncopal episodes -? continue telemetry continue metoprolol, follow clinical course, orthostatic blood pressures not obtained since patient unable to sit or stand, on multiple psychiatric medications, will hold daytime dose of trazodone continue duloxetine and mirtazapine # ch. persistent AFib -? hold Eliquis -? continue metoprolol and digoxin #? depression -? continue duloxetine, mirtazepine ,zyprexa and adjusted dose of trazodone. # unspecified advanced dementia continue home meds. ?DVT prophylaxis:? SCDs ?Given patient's need for further evaluation and surgical intervention of hip fracture patient will need continued inpatient hospitalization for further management and monitoring. Time Spent With Patient Time: Total time managing care of this patient today ____ minutes. Quality Stroke Does the patient have a stroke diagnosis?: No VTE Prior VTE?: No VTE Risk Level:: Surgical - very high VTE Device Contraindication: N/A - Device Ordered VTE Drug Contraindication: Treatment Not Indicated
[2022-08-13 10:15] LABS: Hematocrit 25.1 % (37.0-47.0); Hemoglobin 8.4 g/dl (12.0-16.0)
--- NOTE | 2022-08-13 10:59 | PM.CNCAR ---
History of Present Illness History of Present Illness Date of Service: 08/13/22 Chief complaint: Hip fracture Narrative: This is a cardiology consultation regarding preoperative risk stratification for hip surgery. Patient was last seen in the clinic in May. At that time, described to have persistent atrial fibrillation. She is maintained on a combination of metoprolol and digoxin. She was also on Eliquis. She was generally doing okay according to son who had come with her. Current admission is because of fall. Patient herself does not know and she cannot remember what happened. Per H and P, patient admitted with right hip pain. There is question of fall versus syncope. She was not able to give much information even at that time. She has been found to have right hip fracture. Per orthopedics, plan to go for surgery today. She denies any cardiac symptoms otherwise including angina or shortness of breath or palpitations or in fact anything cardiac sounding. She cannot recall why she is here or what happened. Review of Systems Review of Systems: Yes all other systems are reviewed and are negative Constitutional: Constitutional: Reports as per HPI and Reports no additional constitutional complaints Eyes: Eyes: Reports as per HPI and Denies no additional eye complaints ENT: Denies system reviewed and no additional complaints, except as documented and Reports as per HPI Cardiovascular: Cardiovascular: Reports as per HPI, Reports no additional cardiovascular complaints, Denies acrocyanosis, Denies cool extremities, Denies chest pain, Denies leg edema, Denies lightheadedness, Denies palpitations and Denies dyspnea Respiratory: Respiratory: Reports as per HPI, Denies no additional respiratory complaints and Denies dyspnea Gastrointestinal: Gastrointestinal: Reports as per HPI and Denies no additional gastrointestinal complaints Genitourinary: Genitourinary: Reports as per HPI Musculoskeletal: Musculoskeletal: Reports no additional musculoskeletal complaints and Reports as per HPI Integumentary/Breasts: Skin/Breast: Reports system reviewed and no additional complaints, except as docu Neurologic: Reports system reviewed and no additional complaints, except as documented and Reports as per HPI Psychiatric: Psychiatric: Reports no additional psychiatric complaints and Reports as per HPI Endocrine: Endocrine: Reports no additional endocrine complaints, Reports as per HPI and Denies palpitations Hematologic/Lymphatic: Hematologic/Lymphatic: Reports no additional hematologic/lymphatic complaints and Reports as per HPI Allergic/Immunologic: Allergic/Immunologic: Reports no additional allergic/immunologic complaints and Reports as per HPI PMFSH Past Medical History Medical History Anxiety Atrial fibrillation with controlled ventricular rate Dementia Depression Diastolic heart failure GERD (gastroesophageal reflux disease) History of rib fracture HTN (hypertension) Major depressive disorder, 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 Father No problems noted. Surgical History Surgical History No pertinent past surgical history Social History Social History Household Members: Family Household Members Other:: Son, Akil Joe Housing: Assisted Living Facility Housing Other:: [facility] Do you presently have visiting nurse or other home services: Yes (VNA services) Unable to assess alcohol history related to: Unable to respond Alcohol intake: former Patient Tobacco Use Status: Never used Tobacco Smoked in Last 30 Days: No Second Hand Smoke Exposure: No Use of substances other than those prescribed or required for medical reasons: Unable to respond Currently Displaying Signs/Symptoms of Drug Intoxication Withdrawal: No Have you been hit, kicked, punched, or otherwise hurt by someone within the past year? If so, by whom?: No Are you made to feel afraid or neglected: No Advance Directives: Yes Advance Directives on File: Yes Advance Directives Date on File: 04/19/21 Do you have thoughts of harming others: None Do you have a plan to hurt others: No Plan Recently lost weight without trying: Unsure Nutrition Risks: Dental problems Patient : No : No service: No Current occupational status: retired Sexual orientation: Straight/Heterosexual Meds Allergies Allergy/AdvReac Type Severity Reaction Status Date / Time morphine AdvReac Severe Alternate Verified 06/19/22 12:45 mental status Active Medications: Current Medications Acetaminophen (Acetaminophen 325 Mg Tablet) 650 mg PO Q6H PRN PRN Reason: Pain, Mild (Pain Scale 1-3) Atorvastatin Calcium (Atorvastatin Calcium 40 Mg Tablet) 40 mg PO BEDTIME [facility] Last Admin: 08/12/22 20:29 Dose: 40 mg Digoxin (Digoxin 0.125 Mg Tablet) 0.125 mg PO [facility] Docusate Sodium (Docusate Sodium 100 Mg Capsule) 100 mg PO DAILY PRN PRN Reason: Constipation Docusate Sodium (Docusate Sodium 100 Mg Capsule) 100 mg PO BEDTIME [facility] Last Admin: 08/12/22 20:29 Dose: 100 mg Duloxetine HCl (Duloxetine Hcl 30 Mg Capsule.Dr) 30 mg PO BID [facility] Last Admin: 08/13/22 08:32 Dose: Not Given Hydromorphone HCl (Hydromorphone Hcl 0.5 Mg/0.5 Ml Syringe) 0.5 mg IVPUSH Q6H PRN; Protocol PRN Reason: Pain, Severe (Pain Scale 7-10) Last Admin: 08/13/22 03:22 Dose: 0.5 mg Dextrose/Lactated Ringer's (D5lr) 1,000 mls @ 50 mls/hr IVCONT .Q20H [facility] Last Admin: 08/12/22 15:31 Dose: 50 mls/hr Cefazolin Sodium/Dextrose (Ancef) 2 gm in 50 mls @ 100 mls/hr IV PREOP ONE Stop: 08/13/22 14:29 Melatonin (Melatonin 3 Mg Tablet) 3 mg PO BEDTIME [facility] Last Admin: 08/12/22 20:29 Dose: 3 mg Metoprolol Tartrate (Metoprolol Tartrate 25 Mg Tablet) 75 mg PO BID [facility]; Protocol Last Admin: 08/13/22 08:28 Dose: 75 mg Mirtazapine (Mirtazapine 15 Mg Tablet) 15 mg PO BEDTIME [facility] Last Admin: 08/12/22 20:30 Dose: 15 mg Olanzapine (Olanzapine 2.5 Mg Tablet) 2.5 mg PO BID [facility] Last Admin: 08/13/22 08:32 Dose: Not Given Ondansetron HCl (Ondansetron Hcl 4 Mg/2 Ml Vial) 4 mg IVPUSH Q8H PRN PRN Reason: Nausea and Vomiting Oxycodone HCl (Oxycodone Hcl Immed Release 5 Mg Tablet) 5 mg PO TID [facility] Last Admin: 08/13/22 08:28 Dose: 5 mg Pharmacy Consult (Consult Rx Perform Med Rec) 1 each MISCELLANE ONCE PRN PRN Reason: Consult order Sodium Chloride (0.9 % Sodium Chloride Flush 3 Ml Syringe) 3 ml IVFLUSH QSHIFT [facility] Last Admin: 08/13/22 08:33 Dose: Not Given Trazodone HCl (Trazodone Hcl 25 Mg Halftab) 25 mg PO BEDTIME [facility] Last Admin: 08/12/22 20:29 Dose: 25 mg Home Medications Medication Instructions Recorded Confirmed Last Taken Type melatonin 3 mg capsule 3 mg PO BEDTIME 06/19/22 08/12/22 Unknown History metoprolol tartrate 50 mg tablet 75 mg PO BID 06/19/22 08/12/22 Unknown History trazodone 50 mg tablet 25 mg PO BID@0900,1200 08/09/22 08/12/22 Unknown History trazodone 50 mg tablet 50 mg PO BEDTIME 08/12/22 08/12/22 Unknown History Physical Exam Vital Signs: Vital Signs: Last Vital Signs Temp 97.8 F 08/13/22 07:19 Pulse 94 08/13/22 07:19 Resp 16 08/13/22 07:19 BP 136/59 L 08/13/22 07:19 Pulse Ox 92 08/13/22 07:19 O2 Del Method Room Air 08/13/22 07:19 BMI result Body Mass Index 16.5 Const: General: comfortable and no acute distress Orientation/consciousness: patient oriented x3 HEENT: Other: Unremarkable Head: Yes normal to inspection Neck: Neck: Yes normal visual inspection Chest: Chest palpation & inspection: normal inspection of the chest Resp: Auscultation: clear to auscultation bilaterally Cardio: Palpation: normal PMI Heart sounds: S1 normal heart sound present, S2 normal heart sound present, no gallops, no murmurs and no rubs GI: Palpation (GI): Soft to palpation Back/Spine/Pelvis: Other: unremarkable Skin: General skin exam: no rashes or lesions noted Neuro: General: patient oriented x3 Extrem: General: Yes normal to inspection Psych: Mental Status: mental status grossly normal Objective Labs and Meds 08/13/22 10:00 08/12/22 04:04 Lab results: Laboratory Results - last 24 hr 08/12/22 08/13/22 04:04 10:00 Hgb 8.4 L Hct 25.1 L Blood Type AB Positive Antibody Screen NEGATIVE Crossmatch See Detail ECG Interpretation: EKG shows atrial fibrillation at a rate of 97/Min; lateral downsloping STs in V4 to V6. Also slightly in the leads 1 and aVL. These changes have been seen before. Assessment and Plan (1) Preoperative cardiovascular examination: Status: Acute (2) Persistent atrial fibrillation: Status: Acute Plan High sensitivity troponin is 16.8. Within range. Per last echocardiogram 2020, LVEF 50-55%. Mild aortic regurgitation. Overall, due to hip fracture, it seems that surgery is required and there is no other option. Hence may proceed as indicated. From cardiac standpoint alone risk is probably intermediate, but considering overall frailty and comorbidities, overall risk is likely higher than intermediate. Any case, this is not modifiable. Discussed with orthopedics/anesthesia/hospitalist. As long as family understand and agree, proceed. Resume anticoagulation when able. Continue other medication for rate control as she takes at home. Time Spent With Patient Time: Total time managing care of this patient today ____ minutes. Procedures Date of Service Date of Service: 08/13/22
[2022-08-13] MEDS: Dextrose 5 % and Lactated Ring 1,000 ML 50 ML IVCONT (11:55)
[2022-08-13 12:20] VITALS: BP 121/60; PULSE 67; RESP 16; TEMP 36.5
[2022-08-13 12:44] VITALS: BP 135/71; PULSE 61; RESP 16; TEMP 36.1
[2022-08-13 14:10] VITALS: BMI 16.5
--- NOTE | 2022-08-13 14:58 | MHC.CM.PN ---
Per MD rounds plan for OR today. Referrals have been sent to facilities for STR. A PT eval will be ordered to assist with Dispo. DP STR via BLS.
[2022-08-13 15:45] VITALS: BP 158/64; PULSE 82; RESP 16; TEMP 36.6
[2022-08-13 19:32] VITALS: BP 168/79; PULSE 84; RESP 18; TEMP 36.3; O2SAT 94
[2022-08-13] MEDS: 0.9 % Sodium Chloride Flush 3 ML SYRINGE IVFLUSH (19:42)
[2022-08-13] MEDS: DULoxetine HCl 30 MG CAPSULE.DR PO (20:58)
[2022-08-13] MEDS: OLANZapine 2.5 MG TABLET PO (20:58)
[2022-08-13] MEDS: Atorvastatin Calcium 40 MG TABLET PO (20:58)
[2022-08-13] MEDS: Mirtazapine 15 MG TABLET PO (20:58)
[2022-08-13] MEDS: Docusate Sodium 100 MG CAPSULE PO (20:58)
[2022-08-13] MEDS: traZODone HCL 25 MG HALFTAB PO (20:58)
[2022-08-13] MEDS: Melatonin 3 MG TABLET PO (20:59)
[2022-08-13] MEDS: Dextrose 5 % and Lactated Ring 1,000 ML 100 ML IVCONT (23:42)
--- NOTE | 2022-08-14 01:35 | PC.NURSE ---
after Dilaudid or Oxycodone, pt desat low 80s, dr. Singh notified allowed to have O2 3L via [place]. occasionally desatting afew times. right back up to 98%. afib with pvc. continue to monitor sat and telemonitor.
[2022-08-14] MEDS: HYDROmorphone HCl 0.5 MG/0.5 ML SYRINGE IVPUSH ×4 (02:05→14:30)
[2022-08-14 02:47] LABS: ABG Base Excess 4.5 mmol/L; ABG HCO3 30 mmol/L (22-26); ABG O2 % Saturation < 30.0 %; ABG pCO2 54 mmHg (32-45); ABG pH 7.36 (7.35-7.45); ABG pO2 25 mmHg (83-108)
[2022-08-14 02:48] VITALS: BP 145/85; PULSE 101; RESP 20; TEMP 36.7; O2SAT 100
--- NOTE | 2022-08-14 03:03 | PM.EVENT ---
Event Note Date of Service: 08/14/22 Event Note: was informed by the nurse that patient was hypoxemic. Obtained chest x-ray, ABG, troponin BNP. Dense left-sided consolidation noted. Will initiate IV antibiotics empirically Time Spent With Patient Time: Total time managing care of this patient today ____ minutes.
[2022-08-14 03:08] LABS: Glucose, Whole Blood 148 mg/dL (60-115)
[2022-08-14 03:23] LABS: ABG Refer to POC result
[2022-08-14 03:37] LABS: B Type Natriuretic Peptide 239 pg/mL (<100); Troponin-I High Sensitivity 28.3 ng/L (<3.5-17.0)
--- NOTE | 2022-08-14 03:46 | PC.NURSE ---
pt was moaning for pain and discomfort at 02:00, so this nurse checked on her. provided incontinent care and pain control with dilaudid 0.5mg IV push, telemonitor box shows the O2 sat was low 80s and 76% with 3L O2 via NC. notified dr. Singh and RT. provide O2 up to 10 L with oxymask. O2 reading still low 80s. checeked VSs, and POC. new lab order received - ABG, troponin, bmp and chest x-ray. pt hands and forehead oxygen reading wasn't correctly, cutting and splicing supervisor Deyanira used great toe to check O2 sat. was 100%. after hour and half worked out, now wean down to 6L w/oxymask reading 98%, HR 105 and afib. continue to monitor s/s and VSs.
[2022-08-14 06:16] LABS: Hematocrit 30.8 % (37.0-47.0); Hemoglobin 10.1 g/dl (12.0-16.0); Mean Corpuscular HGB Conc 32.8 g/dl (31.0-35.0); Mean Corpuscular Hemoglobin 30.5 pg (27.0-33.0); Mean Corpuscular Volume 93.1 fL (80.0-98.0); Mean Platelet Volume 10.6 fL (9.4-12.3); NRBC Pct Auto 0.2 /100WBC (0.0-0.2); Platelet Count 229 X10*3/uL (160-400); Red Blood Count 3.31 X10*6/uL (4.20-5.50); Red Cell Distribution Width 14.3 % (11.0-16.0); White Blood Count 13.2 X10*3/uL (4.8-10.8)
[2022-08-14 06:33] LABS: Anion Gap 13 (12-20); Blood Urea Nitrogen 45 mg/dL (9-16); Calcium 9.3 mg/dL (8.4-10.2); Carbon Dioxide 25 mmol/L (22-29); Chloride 107 mmol/L (96-108); Creatinine Clr Calc Pharmacy 22.2; Estimated Glomerular Filt Rate 41; Glucose Random 190 mg/dL (60-115); Potassium 4.2 mmol/L (3.3-5.1); Sodium 141 mmol/L (135-145)
[2022-08-14 07:07] VITALS: BP 121/59; PULSE 99; RESP 18; TEMP 37.2; O2SAT 94
[2022-08-14] MEDS: Piperacillin Sodium/Tazobactam 3.375 GM in 0.9 % Sodium Chloride 50 ML IV ×3 (07:21→18:06)
[2022-08-14] MEDS: 0.9 % Sodium Chloride Flush 3 ML SYRINGE IVFLUSH (07:27)
[2022-08-14 07:45] LABS: Lactic Acid 2.5 mmol/L (0.5-2.0)
[2022-08-14] MEDS: vancomycin HCL 1,000 MG in 0.9 % Sodium Chloride 250 ML 270 MG IV (08:34)
[2022-08-14 09:09] LABS: Reflex Lactate? Lactic Acid Added
[2022-08-14] MEDS: Dextrose 5 % and Lactated Ring 1,000 ML 100 ML IVCONT ×2 (09:24→17:33)
[2022-08-14 09:52] LABS: ~Lactic Acid-LAB USE ONLY 1.7 mmol/L (0.5-2.0)
[2022-08-14 10:51] LABS: MRSA Nasal PCR NEGATIVE (Negative); SA Nasal PCR NEGATIVE (Negative)
--- NOTE | 2022-08-14 10:57 | HO.PM.IMPN ---
Subjective Subjective Date of Service: 08/14/22 Interval History: Events of overnight noted. Continues to need IV dilaudid for pain; O2 titrated to 6 liters/minute with acceptable sats. Discussed with orthopedics; no surgery in the foreseeable future Review of Systems Unable to obtain Physical Exam Vital Signs: Vital Signs: Last Vital Signs Temp 98.9 F 08/14/22 07:07 Pulse 99 08/14/22 07:07 Resp 18 08/14/22 07:07 BP 121/59 L 08/14/22 07:07 Pulse Ox 94 08/14/22 07:07 O2 Del Method Oxymask 08/14/22 07:07 O2 Flow Rate 6 08/14/22 07:07 BMI result Body Mass Index 16.5 Const: Other: Somnolent but arousable. Able to speak in short nonsensical sentences Resp: Other: Diminished left base with dense crackles. Diffuse expiratory wheezes Cardio: Other: No S4; positive S1-S2; no S3 murmurs rubs or gallops GI: Other: Soft nontender nondistended normoactive bowel sounds Extrem: Other: No edema bilaterally Objective Data Active Medications Acetaminophen (Acetaminophen 325 Mg Tablet) 650 mg PO Q6H PRN PRN Reason: Pain, Mild (Pain Scale 1-3) Atorvastatin Calcium (Atorvastatin Calcium 40 Mg Tablet) 40 mg PO BEDTIME [facility] Last Admin: 08/13/22 20:58 Dose: 40 mg Documented By: GELY Digoxin (Digoxin 0.125 Mg Tablet) 0.125 mg PO WE [facility] Last Admin: 08/14/22 08:39 Dose: Not Given Documented By: EJ Non-Admin Reason: unable Docusate Sodium (Docusate Sodium 100 Mg Capsule) 100 mg PO DAILY PRN PRN Reason: Constipation Docusate Sodium (Docusate Sodium 100 Mg Capsule) 100 mg PO BEDTIME [facility] Last Admin: 08/13/22 20:58 Dose: 100 mg Documented By: GELY Duloxetine HCl (Duloxetine Hcl 30 Mg Capsule.) 30 mg PO BID [facility] Last Admin: 08/14/22 08:39 Dose: Not Given Documented By: EJ Non-Admin Reason: unable to swallow Hydromorphone HCl (Hydromorphone Hcl 0.5 Mg/0.5 Ml Syringe) 0.5 mg IVPUSH Q6H PRN; Protocol PRN Reason: Pain, Severe (Pain Scale 7-10) Last Admin: 08/14/22 09:21 Dose: 0.5 mg Documented By: EJ Dextrose/Lactated Ringer's (D5lr) 1,000 mls @ 100 mls/hr IVCONT .Q10H [facility] Last Admin: 08/14/22 09:24 Dose: 100 mls/hr Documented By: EJ Piperacillin Sod/Tazobactam (Sod 3.375 gm/ Sodium Chloride) 50 mls @ 100 mls/hr IV Q6H [facility] Last Infusion: 08/14/22 07:58 Dose: 0 mls/hr Documented By: EJ Vancomycin HCl 500 mg/ Sodium (Chloride) 110 mls @ 110 mls/hr IV Q24H [facility] Melatonin (Melatonin 3 Mg Tablet) 3 mg PO BEDTIME [facility] Last Admin: 08/13/22 20:59 Dose: 3 mg Documented By: GELY Metoprolol Tartrate (Metoprolol Tartrate 25 Mg Tablet) 75 mg PO BID [facility]; Protocol Last Admin: 08/14/22 08:39 Dose: Not Given Documented By: EJ Non-Admin Reason: unable to swallow Mirtazapine (Mirtazapine 15 Mg Tablet) 15 mg PO BEDTIME [facility] Last Admin: 08/13/22 20:58 Dose: 15 mg Documented By: GELY Olanzapine (Olanzapine 2.5 Mg Tablet) 2.5 mg PO BID [facility] Last Admin: 08/14/22 08:39 Dose: Not Given Documented By: EJ Non-Admin Reason: unable to swallow Ondansetron HCl (Ondansetron Hcl 4 Mg/2 Ml Vial) 4 mg IVPUSH Q8H PRN PRN Reason: Nausea and Vomiting Oxycodone HCl (Oxycodone Hcl Immed Release 5 Mg Tablet) 5 mg PO TID [facility] Last Admin: 08/14/22 08:39 Dose: Not Given Documented By: EJ Non-Admin Reason: unable to swallow Pharmacy Consult (Consult Rx Perform Med Rec) 1 each MISCELLANE ONCE PRN PRN Reason: Consult order Pharmacy Consult (Consult Rx Vancomycin Dosing) 1 each MISCELLANE DAILY PRN PRN Reason: Consult order Sodium Chloride (0.9 % Sodium Chloride Flush 3 Ml Syringe) 3 ml IVFLUSH QSHIFT [facility] Last Admin: 08/14/22 07:27 Dose: 3 ml Documented By: EJ Trazodone HCl (Trazodone Hcl 25 Mg Halftab) 25 mg PO BEDTIME [facility] Last Admin: 08/13/22 20:58 Dose: 25 mg Documented By: GELY Labs 08/14/22 06:05 08/14/22 06:05 Labs: Laboratory Results - last 24 hr 08/12/22 08/14/22 08/14/22 04:04 02:36 02:58 MCV MCH MCHC RDW Plt Count MPV Absolute Nucleated RBC Nucleated RBC % (auto) O2 Saturation < 30.0 ABG pH at Pt Temp 7.36 ABG pCO2 at Pt Temp 54 H ABG pO2 at Pt Temp 25 L* ABG HCO3 30 H ABG Base Excess (Actual) 4.5 Anion Gap Estim Creat Clear Calc Estimated GFR POC Glucose Random Glucose Lactic Acid Lactic Acid F/U @ 2Hr Calcium Troponin I High Sens 28.3 H D B-Natriuretic Peptide Nasal Screen MRSA (PCR) Nasal S. aureus Screen Nasal MRSA/S.aureus Interp Blood Type AB Positive Antibody Screen NEGATIVE Crossmatch See Detail 08/14/22 08/14/22 08/14/22 02:58 02:59 06:05 MCV 93.1 MCH 30.5 MCHC 32.8 RDW 14.3 Plt Count 229 MPV 10.6 Absolute Nucleated RBC 0.030 H Nucleated RBC % (auto) 0.2 O2 Saturation ABG pH at Pt Temp ABG pCO2 at Pt Temp ABG pO2 at Pt Temp ABG HCO3 ABG Base Excess (Actual) Anion Gap Estim Creat Clear Calc Estimated GFR POC Glucose 148 H Random Glucose Lactic Acid Lactic Acid F/U @ 2Hr Calcium Troponin I High Sens B-Natriuretic Peptide 239 H Nasal Screen MRSA (PCR) Nasal S. aureus Screen Nasal MRSA/S.aureus Interp Blood Type Antibody Screen Crossmatch 08/14/22 08/14/22 08/14/22 06:05 07:05 07:57 MCV MCH MCHC RDW Plt Count MPV Absolute Nucleated RBC Nucleated RBC % (auto) O2 Saturation ABG pH at Pt Temp ABG pCO2 at Pt Temp ABG pO2 at Pt Temp ABG HCO3 ABG Base Excess (Actual) Anion Gap 13 Estim Creat Clear Calc 22.2 Estimated GFR 41 POC Glucose Random Glucose 190 H Lactic Acid 2.5 H* Lactic Acid F/U @ 2Hr Calcium 9.3 Troponin I High Sens B-Natriuretic Peptide Nasal Screen MRSA (PCR) NEGATIVE Nasal S. aureus Screen NEGATIVE Nasal MRSA/S.aureus Interp SEE NOTE Blood Type Antibody Screen Crossmatch 08/14/22 09:28 MCV MCH MCHC RDW Plt Count MPV Absolute Nucleated RBC Nucleated RBC % (auto) O2 Saturation ABG pH at Pt Temp ABG pCO2 at Pt Temp ABG pO2 at Pt Temp ABG HCO3 ABG Base Excess (Actual) Anion Gap Estim Creat Clear Calc Estimated GFR POC Glucose Random Glucose Lactic Acid Lactic Acid F/U @ 2Hr 1.7 Calcium Troponin I High Sens B-Natriuretic Peptide Nasal Screen MRSA (PCR) Nasal S. aureus Screen Nasal MRSA/S.aureus Interp Blood Type Antibody Screen Crossmatch Assessment and Plan (1) Left lower lobe pneumonia: Status: Acute (2) Closed hip fracture: Status: Acute (3) Persistent atrial fibrillation: Status: Acute (4) Essential hypertension: Status: Acute (5) Dementia: Status: Acute Plan 81-year-old female with past medical history of AFib on Eliquis, dementia,? diastolic heart failure, GERD, HTN, and depression presents to the hospital after a fall and found to have hip fracture; overnight developed acute hypoxemia and found to have a left lower lobe pneumonia. 1. Left lower lobe pneumonia -Vanc/Zosyn(1) -pulse dose steroids given wheezing -discussed with orthopedics; surgery on hold -discussion with son; will trial antibiotics for least 24 hours and measure response. If no response or worsening... Son wishes comfort care only 2.Acute comminuted right hip fracture -discuss with surgery; pneumonia is prohibitive factor -follow-up clinically 3.Acute on chronic normocytic anemia -good response to transfuse -with follow hemoglobin as indicated 4.Chronic/persistent AFib -Eliquis on hold -rate control adequate -adjust as indicated? 5.Advanced dementia -stable at this time -continue outpatient therapies as tolerated ?SCDs DNR/DNI Patient requires ongoing hospitalization for IV antibiotics to treat new left lower lobe pneumonia Time Spent With Patient Time: Total time managing care of this patient today ____ minutes. Quality Stroke Does the patient have a stroke diagnosis?: No VTE Prior VTE?: No VTE Risk Level:: Surgical - very high VTE Device Contraindication: N/A - Device Ordered VTE Drug Contraindication: Treatment Not Indicated
[2022-08-14 12:12] VITALS: BP 127/74; PULSE 98; RESP 18; TEMP 37.2; O2SAT 92
[2022-08-14 15:17] VITALS: BP 132/59; PULSE 96; RESP 21; TEMP 36.6; O2SAT 100
[2022-08-14] MEDS: LORazepam 2 MG/ML VIAL 0.5 MG IVPUSH ×2 (15:49→16:19)
--- NOTE | 2022-08-14 16:28 | PC.NURSE ---
1019: Pt moaning continuously and grabbing onto her right thigh. Pt also pulling tele monitor leads off and taking candace off. Pt received IV Dilaudid at [address] Cole notified. Additional IV dilaudid 0.5mg IV ordered and given at 1038 with good effect. Per ok to dc tele. Pt granddaughter at bedside. 1411: Pt restless and moaning in pain especially with repositioning. Not due for pain med at this time. Dr Cole notified. New orders in by MD. IV dilaudid 0.5mg given at 1435 with minimal effect. 1536: Pt pulling at IVs, taking candace and oxygen mask off. Very restless. Dr. Cole notified. IV ativan ordered 0.5mg and given at 1545 with no effect. Pt continues to pull at lines. Dr Cole in to see pt. Additional ativan 0.5mg IV ordered and given at 1620. Will continue to monitor pt.
--- NOTE | 2022-08-14 17:34 | PC.NURSE ---
Pt appears much more relaxed, not restless. Resting quietly. Will continue to monitor
[2022-08-14 19:14] VITALS: BP 124/66; PULSE 101; RESP 18; TEMP 36.6
[2022-08-14] MEDS: Mirtazapine 15 MG TABLET PO (21:44)
[2022-08-14] MEDS: Melatonin 3 MG TABLET PO (21:45)
[2022-08-14] MEDS: oxyCODONE HCl Immed Release 5 MG TABLET PO (21:45)
[2022-08-14] MEDS: Metoprolol Tartrate 25 MG TABLET 75 MG PO (21:45)
[2022-08-14] MEDS: OLANZapine 2.5 MG TABLET PO (21:45)
[2022-08-14] MEDS: traZODone HCL 25 MG HALFTAB PO (21:46)
[2022-08-15] MEDS: 0.9 % Sodium Chloride Flush 3 ML SYRINGE IVFLUSH ×2 (00:27→15:47)
[2022-08-15] MEDS: Piperacillin Sodium/Tazobactam 3.375 GM in 0.9 % Sodium Chloride 50 ML IV ×4 (00:27→20:29)
[2022-08-15] MEDS: LORazepam 2 MG/ML VIAL 0.5 MG IVPUSH (01:11)
[2022-08-15 04:30] VITALS: BP 140/86; PULSE 107; RESP 18; TEMP 36.5; O2SAT 99
[2022-08-15] MEDS: HYDROmorphone HCl 0.5 MG/0.5 ML SYRINGE IVPUSH ×4 (05:00→15:47)
[2022-08-15] MEDS: Dextrose 5 % and Lactated Ring 1,000 ML 100 ML IVCONT ×2 (05:00→14:52)
[2022-08-15 07:07] LABS: Creatinine Clr Calc Pharmacy 31.8; Estimated Glomerular Filt Rate > 60
[2022-08-15 07:22] VITALS: BP 128/63; PULSE 100; RESP 16; TEMP 36.5; O2SAT 100
--- NOTE | 2022-08-15 07:43 | HE.PHANOTE ---
RE VANCO SCR IS IMPROVING. CHANGING DOSE TO 750 Q24H [facility]
[2022-08-15] MEDS: vancomycin HCL 750 MG in 0.9 % Sodium Chloride 250 ML 265 MG IV (09:47)
--- NOTE | 2022-08-15 09:47 | MHC.CLN ---
F/U PATIENT NOW WITH LEFT LOWER LOBE PNEUMONIA. HIP SURGERY CANCELLED. DIET=NPO. TODAY IS DAY 3 NPO. PER MD NOTE, IF NO RESPONSE OR WORSENING WITH ABT, SON WILL DECIDE ON COMFORT CARE. FOLLOW WIT TEAM FOR PLAN OF CARE.
[2022-08-15 09:58] VITALS: PULSE 103; TEMP 36.7; O2SAT 92
--- NOTE | 2022-08-15 10:19 | P.CDIM_ITS ---
PROVIDER RESPONSE TEXT: To clarify, the appropriate diagnosis supported by the clinical indicators: Localized infection only, without systemic illness: LLL Pneumonia QUERY TEXT: PHYSICIAN'S DOCUMENTATION REQUEST Date of Query: 08/14/2022 11:40 AM EDT Patient Name: Stephany Joe Admit Date: 08/11/2022 Dear Ramu Cole, A review of the medical record indicates additional documentation may be needed. Please review below and update the documentation accordingly. Clinical Indicators: Event note 08/14 - patient meets Sepsis criteria, resuscitating with IV fluids Left lower pneumonia/hypoxemia WBC 13.2 LA 2.5 HR 101 BP 145/85 IV Vancomycin, Zosyn, O2 titrated to 6 liters/minute with acceptable stats. Please clarify which, if any, of the following is the most likely etiology of the above symptoms and treatment rendered: Sepsis Severe Sepsis Localized infection only, without systemic illness Indicate the site/source, such as UTI, pneumonia, etc. Other (explain)Clinically unable to determine (explain)Thank you, Bri Mccormack, CCS, CDIS Use of terms such as suspected, likely, concern for, or probable (associated with a specific diagnosi s that is being evaluated, monitored, or treated as if it exists) are acceptable and can be coded in the inpatient se tting, when documented at the time of discharge. Please use your independent medical judgment in providing your response. THIS QUERY IS PART OF THE PERMANENT MEDICAL RECORD
--- NOTE | 2022-08-15 10:22 | P.CDIM_ITS ---
PROVIDER RESPONSE TEXT: To clarify, the appropriate diagnosis supported by the clinical indicators: Clinically unable to determine (explain): No documentation to support what type of dementia QUERY TEXT: PHYSICIAN'S DOCUMENTATION REQUEST Date of Query: 08/15/2022 07:49 AM EDT Patient Name: Stephany Joe Admit Date: 08/11/2022 Dear Ramu Cole, A review of the medical record indicates additional documentation may be needed. Please review below and update the documentation accordingly. Clinical Indicators: Patient with Dementia, extremely demented, oriented to self only. on multiple psychiatric medications, depression on duloxetinem, mirtazepine, zyprexa, and adjusted do se of trazodone. If possible, please further clarify type of Dementia: Dementia vascular, frontal, mild, moderate, presenile, or other Other Other (explain)Clinically unable to determine (explain)Thank you, Bri Mccormack, CCS, CDIS Use of terms such as suspected, likely, concern for, or probable (associated with a specific diagnosi s that is being evaluated, monitored, or treated as if it exists) are acceptable and can be coded in the inpatient se tting, when documented at the time of discharge. Please use your independent medical judgment in providing your response. THIS QUERY IS PART OF THE PERMANENT MEDICAL RECORD
--- NOTE | 2022-08-15 10:54 | MHC.CM.PN ---
Patient receiving ABX for PNA. Surgical intervention is on hold for now. A clinical update has been sent to the facility. They have been asked to continue to follow for recovery. [facility] via [facility]LS vs [employer] [employer].
--- NOTE | 2022-08-15 12:33 | P.PNIM_ITS ---
Subjective Subjective Date of Service: 08/15/22 Interval History: Overall decline last 24 hours. Essentially nonverbal family at bedside Review of Systems Unable to obtain Physical Exam Vital Signs: Vital Signs: Last Vital Signs Temp 98.1 F 08/15/22 09:58 Pulse 103 H 08/15/22 09:58 Resp 16 08/15/22 07:22 BP 128/63 08/15/22 07:22 Pulse Ox 92 08/15/22 09:58 O2 Del Method Oxymask 08/15/22 09:58 O2 Flow Rate 4 08/15/22 09:58 BMI result Body Mass Index 16.5 Const: Other: Unresponsive Resp: Other: Diminished left base with dense crackles. Diffuse expiratory wheezes Cardio: Other: No S4; positive S1-S2; no S3 murmurs rubs or gallops GI: Other: Soft nontender nondistended normoactive bowel sounds Extrem: Other: No edema bilaterally Objective Data Active Medications Acetaminophen (Acetaminophen 325 Mg Tablet) 650 mg PO Q6H PRN PRN Reason: Pain, Mild (Pain Scale 1-3) Atorvastatin Calcium (Atorvastatin Calcium 40 Mg Tablet) 40 mg PO BEDTIME [facility] Last Admin: 08/14/22 22:15 Dose: Not Given Documented By: DEMETRIO Non-Admin Reason: pt unable to swallow Digoxin (Digoxin 0.125 Mg Tablet) 0.125 mg PO [facility] Last Admin: 08/15/22 10:45 Dose: Not Given Documented By: KIET Non-Admin Reason: too lethargic Docusate Sodium (Docusate Sodium 100 Mg Capsule) 100 mg PO DAILY PRN PRN Reason: Constipation Docusate Sodium (Docusate Sodium 100 Mg Capsule) 100 mg PO BEDTIME [facility] Last Admin: 08/14/22 22:11 Dose: Not Given Documented By: DEMETRIO Non-Admin Reason: unable to swallow Duloxetine HCl (Duloxetine Hcl 30 Mg Capsule.) 30 mg PO BID [facility] Last Admin: 08/15/22 10:45 Dose: Not Given Documented By: KIET Non-Admin Reason: too lethargic Hydromorphone HCl (Hydromorphone Hcl 0.5 Mg/0.5 Ml Syringe) 0.5 mg IVPUSH Q2H PRN; Protocol PRN Reason: Pain, Moderate(Pain Scale 4-6) Last Admin: 08/15/22 11:54 Dose: 0.5 mg Documented By: KIET Dextrose/Lactated Ringer's (D5lr) 1,000 mls @ 100 mls/hr IVCONT .Q10H [facility] Last Admin: 08/15/22 05:00 Dose: 100 mls/hr Documented By: DEMETRIO Piperacillin Sod/Tazobactam (Sod 3.375 gm/ Sodium Chloride) 50 mls @ 100 mls/hr IV Q6H [facility] Last Infusion: 08/15/22 06:48 Dose: 0 mls/hr Documented By: DEMETRIO Vancomycin HCl 750 mg/ Sodium (Chloride) 265 mls @ 265 mls/hr IV Q24H [facility] Last Infusion: 08/15/22 11:12 Dose: 0 mls/hr Documented By: KIET Lorazepam (Lorazepam 2 Mg/Ml Vial) 0.5 mg IVPUSH Q4H PRN PRN Reason: Anxiety Last Admin: 08/15/22 01:11 Dose: 0.5 mg Documented By: GEOVANI Melatonin (Melatonin 3 Mg Tablet) 3 mg PO BEDTIME [facility] Last Admin: 08/14/22 21:45 Dose: 3 mg Documented By: DEMETRIO Metoprolol Tartrate (Metoprolol Tartrate 25 Mg Tablet) 75 mg PO BID [facility]; Protocol Last Admin: 08/15/22 10:45 Dose: Not Given Documented By: KIET Non-Admin Reason: too lethargic Mirtazapine (Mirtazapine 15 Mg Tablet) 15 mg PO BEDTIME [facility] Last Admin: 08/14/22 21:44 Dose: 15 mg Documented By: DEMETRIO Olanzapine (Olanzapine 2.5 Mg Tablet) 2.5 mg PO BID [facility] Last Admin: 08/15/22 10:45 Dose: Not Given Documented By: KIET Non-Admin Reason: too lethargic Ondansetron HCl (Ondansetron Hcl 4 Mg/2 Ml Vial) 4 mg IVPUSH Q8H PRN PRN Reason: Nausea and Vomiting Oxycodone HCl (Oxycodone Hcl Immed Release 5 Mg Tablet) 5 mg PO TID [facility] Last Admin: 08/15/22 10:45 Dose: Not Given Documented By: KIET Non-Admin Reason: too lethargic Pharmacy Consult (Consult Rx Perform Med Rec) 1 each MISCELLANE ONCE PRN PRN Reason: Consult order Pharmacy Consult (Consult Rx Vancomycin Dosing) 1 each MISCELLANE DAILY PRN PRN Reason: Consult order Sodium Chloride (0.9 % Sodium Chloride Flush 3 Ml Syringe) 3 ml IVFLUSH QSHIFT [facility] Last Admin: 08/15/22 10:46 Dose: Not Given Documented By: KIET Non-Admin Reason: IV Running Trazodone HCl (Trazodone Hcl 25 Mg Halftab) 25 mg PO BEDTIME [facility] Last Admin: 08/14/22 21:46 Dose: 25 mg Documented By: DEMETRIO Labs 08/14/22 06:05 08/15/22 06:00 Labs: Laboratory Results - last 24 hr 08/15/22 06:00 Estim Creat Clear Calc 31.8 Estimated GFR > 60 Microbiology Microbiology Results: Microbiology 08/14/22 07:05 Blood Culture - Preliminary Blood - Venous No growth after 24 hours. 08/14/22 07:05 Blood Culture - Preliminary Blood - Venous No growth after 24 hours. Assessment and Plan (1) Left lower lobe pneumonia: Status: Acute (2) Closed hip fracture: Status: Acute (3) Persistent atrial fibrillation: Status: Acute (4) Essential hypertension: Status: Acute (5) Dementia: Status: Acute Plan 81-year-old female with past medical history of AFib on Eliquis, dementia,? diastolic heart failure, GERD, HTN, and depression presents to the hospital after a fall and found to have hip fracture; overnight developed acute hypoxemia and found to have a left lower lobe pneumonia. 1. Left lower lobe pneumonia -Vanc/Zosyn(2) -pulse dose steroids given wheezing -son wishes moved to comfort care will discuss with his family 2.Acute comminuted right hip fracture -discuss with surgery; pneumonia is prohibitive factor -follow-up clinically... No surgery in for C able future 3.Acute on chronic normocytic anemia -good response to transfuse -with follow hemoglobin as indicated 4.Chronic/persistent AFib -Eliquis on hold -rate control adequate -adjust as indicated? 5.Advanced dementia -stable at this time -continue outpatient therapies as tolerated ?SCDs DNR/DNI Patient requires ongoing hospitalization for IV antibiotics to treat new left lower lobe pneumonia Time Spent With Patient Time: Total time managing care of this patient today ____ minutes. Quality Stroke Does the patient have a stroke diagnosis?: No VTE Prior VTE?: No VTE Risk Level:: Surgical - very high VTE Device Contraindication: N/A - Device Ordered VTE Drug Contraindication: Treatment Not Indicated
[2022-08-15 15:21] VITALS: BP 143/86; PULSE 116; RESP 16; TEMP 36.4; O2SAT 99
[2022-08-15 19:22] VITALS: BP 148/89; PULSE 98; RESP 18; TEMP 36.3; O2SAT 100
[2022-08-16] VITALS (7 sets, daily range): BP systolic 130–170; BP diastolic 84–90; PULSE 108–136; RESP 18–20; TEMP 36.6–36.9; O2SAT 97–100
[2022-08-16] MEDS: 0.9 % Sodium Chloride Flush 3 ML SYRINGE IVFLUSH (00:55)
[2022-08-16] MEDS: Piperacillin Sodium/Tazobactam 3.375 GM in 0.9 % Sodium Chloride 50 ML IV ×2 (00:55→06:27)
[2022-08-16] MEDS: HYDROmorphone HCl 0.5 MG/0.5 ML SYRINGE IVPUSH ×2 (00:56→08:09)
[2022-08-16] MEDS: Dextrose 5 % and Lactated Ring 1,000 ML 100 ML IVCONT (02:19)
[2022-08-16 06:43] LABS: Vancomycin Random 9.2 mcg/mL (15-20)
[2022-08-16 06:46] LABS: Creatinine Clr Calc Pharmacy 41.1; Estimated Glomerular Filt Rate > 60
[2022-08-16] MEDS: vancomycin HCL 1,000 MG in 0.9 % Sodium Chloride 250 ML 270 MG IV (08:08)
[2022-08-16] MEDS: Morphine Sulfate 4 MG/ML CARTRIDGE IVPUSH ×2 (09:23→11:55)
--- NOTE | 2022-08-16 09:46 | MHC.CM.PN ---
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 Med list MSO4 and Ativan. All other medications have been discontinued.
[2022-08-16] MEDS: LORazepam 2 MG/ML VIAL 0.5 MG IVPUSH (10:59)
[2022-08-16] MEDS: Morphine Sulfate/NS 100 MG/100 ML PLAST..BAG IVCONT (13:51)
--- NOTE | 2022-08-16 13:57 | HO.PM.IMPN ---
Subjective Subjective Date of Service: 08/16/22 Interval History: Unresponsive. Family at bedside Review of Systems Unable to obtain Physical Exam Vital Signs: Vital Signs: Last Vital Signs Temp 98.5 F 08/16/22 07:26 Pulse 115 H 08/16/22 08:25 Resp 19 08/16/22 08:09 BP 170/84 H 08/16/22 07:51 Pulse Ox 97 08/16/22 07:26 O2 Del Method Aerosol Mask 08/16/22 07:26 O2 Flow Rate 3 08/16/22 07:26 BMI result Body Mass Index 16.5 Const: Other: Unresponsive Resp: Other: Diminished left base with dense crackles. Diffuse expiratory wheezes Cardio: Other: No S4; positive S1-S2; no S3 murmurs rubs or gallops GI: Other: Soft nontender nondistended normoactive bowel sounds Extrem: Other: No edema bilaterally Objective Data Active Medications Morphine Sulfate (Morphine Sulfate/Ns) 100 mg in 100 mls @ 0 mls/hr IVCONT .Q0M [facility]; Protocol Last Admin: 08/16/22 13:51 Dose: 2 mg/hr, 2 mls/hr Documented By: COTEMA Lorazepam (Lorazepam 2 Mg/Ml Vial) 0.5 mg IVPUSH Q4H PRN PRN Reason: Anxiety Last Admin: 08/16/22 10:59 Dose: 0.5 mg Documented By: COTEMA Morphine Sulfate (Morphine Sulfate 4 Mg/Ml Cartridge) 4 mg IVPUSH Q2H PRN; Protocol PRN Reason: Restlessness Last Admin: 08/16/22 11:55 Dose: 4 mg Documented By: COTEMA Pharmacy Consult (Consult Rx Perform Med Rec) 1 each MISCELLANE ONCE PRN PRN Reason: Consult order Labs 08/14/22 06:05 08/16/22 05:49 Labs: Laboratory Results - last 24 hr 08/16/22 08/16/22 05:49 05:49 Estim Creat Clear Calc 41.1 Estimated GFR > 60 Random Vancomycin 9.2 L Microbiology Microbiology Results: Microbiology 08/14/22 07:05 Blood Culture - Preliminary Blood - Venous No growth after 48 hours. 08/14/22 07:05 Blood Culture - Preliminary Blood - Venous No growth after 48 hours. Assessment and Plan (1) Left lower lobe pneumonia: Status: Acute (2) Closed hip fracture: Status: Acute Plan 81-year-old female with past medical history of AFib on Eliquis, dementia,? diastolic heart failure, GERD, HTN, and depression presents to the hospital after a fall and found to have hip fracture; overnight developed acute hypoxemia and found to have a left lower lobe pneumonia. Given 48 hours IV antibiotics with out any improvement; slightly worse. Long discussion with son and daughter and granddaughter were at the bedside. 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 All meds were DC oxygen DC'd .....patient placed on morphine drip. Treat accordingly Time Spent With Patient Time: Total time managing care of this patient today ____ minutes. Quality Stroke Does the patient have a stroke diagnosis?: No VTE Prior VTE?: No VTE Risk Level:: Surgical - very high VTE Device Contraindication: N/A - Device Ordered VTE Drug Contraindication: Treatment Not Indicated
--- NOTE | 2022-08-16 15:41 | P.CDIM_ITS ---
PROVIDER RESPONSE TEXT: To clarify, the appropriate diagnosis supported by the clinical indicators: Acute respiratory failure: Hypoxic QUERY TEXT: PHYSICIAN'S DOCUMENTATION REQUEST Date of Query: 08/16/2022 08:15 AM EDT Patient Name: Stephany Joe Admit Date: 08/11/2022 Dear Ramu Cole, A review of the medical record indicates additional documentation may be needed. Please review below and update the documentation accordingly. Clinical Indicators: ABG's pC02 54H HC03 30h p02 25 L RR 20/21 HR 107 Event note 08/14 - patient developed hypoxemia, left lower lobe pneumonia O2 titrated to 6 liters/minute with acceptable sats. Please clarify which of the following accurately represents the patient's respiratory status: Acute respiratory failure Please specify if Hypoxic, Hypercapnic, or Hypoxic and hypercapnic Acute respiratory distress Hypoxia Other Other (explain)Clinically unable to determine (explain) Thank you, Bri Mccormack, CCS, CDIS Use of terms such as suspected, likely, concern for, or probable (associated with a specific diagnosi s that is being evaluated, monitored, or treated as if it exists) are acceptable and can be coded in the inpatient se tting, when documented at the time of discharge. Please use your independent medical judgment in providing your response. THIS QUERY IS PART OF THE PERMANENT MEDICAL RECORD
[2022-08-17] VITALS (8 sets, daily range): RESP 6–16
--- NOTE | 2022-08-17 11:27 | MHC.CM.PN ---
CASE MANAGEMENT NAME ON WHITE BOARD CM AVAILABLE IF NEEDED
--- NOTE | 2022-08-17 11:27 | MHC.CLN ---
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 RD AVAILABLE NEEDED.
[2022-08-17] MEDS: Morphine Sulfate/NS 100 MG/100 ML PLAST..BAG IVCONT (14:09)
--- NOTE | 2022-08-17 14:45 | HO.PM.IMPN ---
Subjective Subjective Date of Service: 08/17/22 Interval History: Remains unresponsive on morphine drip Review of Systems Unable to obtain Physical Exam Vital Signs: Vital Signs: Last Vital Signs Temp 98.5 F 08/16/22 07:26 Pulse 115 H 08/16/22 08:25 Resp 12 08/17/22 14:09 BP 170/84 H 08/16/22 07:51 Pulse Ox 97 08/16/22 07:26 O2 Del Method Aerosol Mask 08/16/22 07:26 O2 Flow Rate 3 08/16/22 07:26 BMI result Body Mass Index 16.5 Const: Other: Unresponsive Resp: Other: Diminished left base with dense crackles. Diffuse expiratory wheezes Cardio: Other: No S4; positive S1-S2; no S3 murmurs rubs or gallops GI: Other: Soft nontender nondistended normoactive bowel sounds Extrem: Other: No edema bilaterally Objective Data Active Medications Morphine Sulfate (Morphine Sulfate/Ns) 100 mg in 100 mls @ 0 mls/hr IVCONT .Q0M [facility]; Protocol Last Admin: 08/17/22 14:09 Dose: 3 mg/hr, 3 mls/hr Documented By: KIET Lorazepam (Lorazepam 2 Mg/Ml Vial) 0.5 mg IVPUSH Q4H PRN PRN Reason: Anxiety Last Admin: 08/16/22 10:59 Dose: 0.5 mg Documented By: GERDA Morphine Sulfate (Morphine Sulfate 4 Mg/Ml Cartridge) 4 mg IVPUSH Q2H PRN; Protocol PRN Reason: Restlessness Last Admin: 08/16/22 11:55 Dose: 4 mg Documented By: GERDA Pharmacy Consult (Consult Rx Perform Med Rec) 1 each MISCELLANE ONCE PRN PRN Reason: Consult order Labs 08/14/22 06:05 08/16/22 05:49 Assessment and Plan (1) Left lower lobe pneumonia: Status: Acute Plan 81-year-old female with past medical history of AFib on Eliquis, dementia,? diastolic heart failure, GERD, HTN, and depression presents to the hospital after a fall and found to have hip fracture; overnight developed acute hypoxemia and found to have a left lower lobe pneumonia. Given 48 hours IV antibiotics with out any improvement; slightly worse. Long discussion with son and daughter and granddaughter were at the bedside. 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 All meds were DC oxygen DC'd .....patient placed on morphine drip.. Concurrently at 3 milligrams/hour. Continue same Time Spent With Patient Time: Total time managing care of this patient today ____ minutes. Quality Stroke Does the patient have a stroke diagnosis?: No VTE Prior VTE?: No VTE Risk Level:: Surgical - very high VTE Device Contraindication: N/A - Device Ordered VTE Drug Contraindication: Treatment Not Indicated
[2022-08-18] VITALS (13 sets, daily range): RESP 6
--- NOTE | 2022-08-18 10:16 | P.PNIM_ITS ---
Subjective Subjective Date of Service: 08/18/22 Interval History: Agonal respirations S1 Review of Systems Unable to obtain Physical Exam Vital Signs: Vital Signs: Last Vital Signs Temp 98.5 F 08/16/22 07:26 Pulse 115 H 08/16/22 08:25 Resp 6 L 08/18/22 08:00 BP 170/84 H 08/16/22 07:51 Pulse Ox 97 08/16/22 07:26 O2 Del Method Aerosol Mask 08/16/22 07:26 O2 Flow Rate 3 08/16/22 07:26 BMI result Body Mass Index 16.5 Const: Other: Unresponsive Resp: Other: Diminished left base with dense crackles. Diffuse expiratory wheezes Cardio: Other: No S4; positive S1-S2; no S3 murmurs rubs or gallops GI: Other: Soft nontender nondistended normoactive bowel sounds Extrem: Other: No edema bilaterally Objective Data Active Medications Morphine Sulfate (Morphine Sulfate/Ns) 100 mg in 100 mls @ 0 mls/hr IVCONT .Q0M [facility]; Protocol Last Admin: 08/17/22 14:09 Dose: 3 mg/hr, 3 mls/hr Documented By: KIET Lorazepam (Lorazepam 2 Mg/Ml Vial) 0.5 mg IVPUSH Q4H PRN PRN Reason: Anxiety Last Admin: 08/16/22 10:59 Dose: 0.5 mg Documented By: GERDA Morphine Sulfate (Morphine Sulfate 4 Mg/Ml Cartridge) 4 mg IVPUSH Q2H PRN; P rotocol PRN Reason: Restlessness Last Admin: 08/16/22 11:55 Dose: 4 mg Documented By: GERDA Pharmacy Consult (Consult Rx Perform Med Rec) 1 each MISCELLANE ONCE PRN PRN Reason: Consult order Labs 08/14/22 06:05 08/16/22 05:49 Assessment and Plan (1) Left lower lobe pneumonia: Status: Acute Plan 81-year-old female with past medical history of AFib on Eliquis, dementia,? diastolic heart failure, GERD, HTN, and depression presents to the hospital after a fall and found to have hip fracture; overnight developed acute hypoxemia and found to have a left lower lobe pneumonia. Given 48 hours IV antibiotics with out any improvement; slightly worse. Long discussion with son and daughter and granddaughter were at the bedside. 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 All meds were DC oxygen DC'd .....patient placed on morphine drip.. Concurrently at 3 milligrams/hour. Continue same Time Spent With Patient Time: Total time managing care of this patient today ____ minutes. Quality Stroke Does the patient have a stroke diagnosis?: No VTE Prior VTE?: No VTE Risk Level:: Surgical - very high VTE Device Contraindication: N/A - Device Ordered VTE Drug Contraindication: Treatment Not Indicated
[2022-08-18] MEDS: Morphine Sulfate/NS 100 MG/100 ML PLAST..BAG IVCONT (14:24)
--- NOTE | 2022-08-18 16:39 | PC.NURSE ---
Changed Morphine Maintenance Manager bag at approx 2:10pm. Wasted 40cc with Florecita Price Patient in no apparent distress. Periods of apnea. Daughter at bedside.
[2022-08-19] VITALS (13 sets, daily range): RESP 6–10
--- NOTE | 2022-08-19 11:15 | P.PNIM_ITS ---
Subjective Subjective Date of Service: 08/19/22 Interval History: Agonal respirations Review of Systems Unable to obtain Physical Exam Vital Signs: Vital Signs: Last Vital Signs Temp 98.5 F 08/16/22 07:26 Pulse 115 H 08/16/22 08:25 Resp 6 L 08/19/22 08:00 BP 170/84 H 08/16/22 07:51 Pulse Ox 97 08/16/22 07:26 O2 Del Method Aerosol Mask 08/16/22 07:26 O2 Flow Rate 3 08/16/22 07:26 BMI result Body Mass Index 16.5 Const: Other: Unresponsive Resp: Other: Diminished left base with dense crackles. Diffuse expiratory wheezes Cardio: Other: No S4; positive S1-S2; no S3 murmurs rubs or gallops GI: Other: Soft nontender nondistended normoactive bowel sounds Extrem: Other: No edema bilaterally Objective Data Active Medications Morphine Sulfate (Morphine Sulfate/Ns) 100 mg in 100 mls @ 0 mls/hr IVCONT .Q0M [facility]; Protocol Last Admin: 08/18/22 14:24 Dose: 3 mg/hr, 3 mls/hr Documented By: FRANSISCO Lorazepam (Lorazepam 2 Mg/Ml Vial) 0.5 mg IVPUSH Q4H PRN PRN Reason: Anxiety Last Admin: 08/16/22 10:59 Dose: 0.5 mg Documented By: GERDA Morphine Sulfate (Morphine Sulfate 4 Mg/Ml Cartridge) 4 mg IVPUSH Q2H PRN; P rotocol PRN Reason: Restlessness Last Admin: 08/16/22 11:55 Dose: 4 mg Documented By: GERDA Pharmacy Consult (Consult Rx Perform Med Rec) 1 each MISCELLANE ONCE PRN PRN Reason: Consult order Labs 08/14/22 06:05 08/16/22 05:49 Microbiology Microbiology Results: Microbiology 08/14/22 07:05 Blood Culture - Final Blood - Venous No growth after 5 days. 08/14/22 07:05 Blood Culture - Final Blood - Venous No growth after 5 days. Assessment and Plan (1) Left lower lobe pneumonia: Status: Acute Plan 81-year-old female with past medical history of AFib on Eliquis, dementia,? diastolic heart failure, GERD, HTN, and depression presents to the hospital after a fall and found to have hip fracture; overnight developed acute hypoxemia and found to have a left lower lobe pneumonia. Given 48 hours IV antibiotics with out any improvement; slightly worse. Long discussion with son and daughter and granddaughter were at the bedside. 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 All meds were DC oxygen DC'd .....patient placed on morphine drip.. Concurrently at 3 milligrams/hour. Continue same Time Spent With Patient Time: Total time managing care of this patient today ____ minutes. Quality Stroke Does the patient have a stroke diagnosis?: No VTE Prior VTE?: No VTE Risk Level:: Surgical - very high VTE Device Contraindication: N/A - Device Ordered VTE Drug Contraindication: Treatment Not Indicated
[2022-08-19] MEDS: Morphine Sulfate/NS 100 MG/100 ML PLAST..BAG IVCONT (14:59)
[2022-08-20] VITALS: RESP 10
[2022-08-20 02:00] VITALS: RESP 18
[2022-08-20 04:00] VITALS: RESP 21
--- NOTE | 2022-08-20 05:40 | PM.EVENT ---
Event Note Date of Service: 08/20/22 Event Note: I was called to patient's bedside to pronounce the patient. No spontaneous movements were present. There was no response to verbal or tactile stimulus. Pupils were mid dilated and fixed. No breath sounds were appreciated over either lung field. No carotid pulses were palpable. No heart sounds were auscultated over entire precordium. Patient was on comfort measures only. Patient pronounced on 08/20/2022 at 05:30. Akil (son) called and condolences offered. Time Spent With Patient Time: Total time managing care of this patient today ____ minutes.
--- NOTE | 2022-09-27 12:48 | PM.DDS ---
Discharge Sum: Prov Provider Primary care physician: Rylie Michel MD Consults: 08/12/22 06:18 Consult to Orthopedics Routine Consulting [place] [facility] Reason for consultation: hipx fracture Has provider been notified: Yes 08/12/22 11:56 Consult to Cardiology Routine Consulting Provider[place] [facility] Reason for consultation: preop for hip surgery Has provider been notified: No Discharge Sum: Diag Contributing Factors (1) Left lower lobe pneumonia: Discharge Sum: Summary Date and Time Date of admission: 08/11/22 19:43 Date of : 08/14/22 Time of : 05:30 Summary Details: 81yoF admitted with with right hip fracture 08/14/22. Seen by Ortho who tentatively scheduled repair for 08/13/22. She was seen by cardiology later that day and deemed acceptable risk. Surgey the scheduled 08/14/22 however early 08/14/22,pt became hypoxic with new O2 requirement. CXR revelaed a dense LLL infiltrate. She was cultured and placed on Vancomycin/Zosyn. Over the next 24hrs there was no improvement; surgery postponed. Discussion with family ...they wished 48hrs of IV ABTX. Over that time period, pt's clinical status continued to decline to point of unresponsiveness. Discussion with family re; poor prognosis given events of last 48hrs. Decision was made to move to [facility]. Pt peacefully 08/14/22. Additional Data Attending physician: Ramu Cole DO
== END 2022-08-20 06:12 | disposition expired | DRG 535 ==
LOC: HO.ED 17:20 → HO.EDOVER 20:08 → HO.S3 20:13
PROVIDERS: Hospitalist; Physician Assistant Medical; Student in an Organized Health Care Education/Training Program; Admitting Provider Internal Medicine; Emergency Provider Emergency Medicine; PCP Internal Medicine; Visit Provider Hospitalist
DX: S72.141A Displaced intertrochanteric fracture of right femur, initial encounter for closed fracture (principal); J18.9 Pneumonia, unspecified organism; J96.01 Acute respiratory failure with hypoxia; I48.19 Other persistent atrial fibrillation; F33.2 Major depressive disorder, recurrent severe without psychotic features; E44.0 Moderate protein-calorie malnutrition; Z68.1 Body mass index [BMI] 19.9 or less, adult; I50.32 Chronic diastolic (congestive) heart failure; I11.0 Hypertensive heart disease with heart failure; Z51.5 Encounter for palliative care; Z66 Do not resuscitate; W19.XXXA Unspecified fall, initial encounter; F03.C0 Unspecified dementia, severe, without behavioral disturbance, psychotic disturbance, mood disturbance, and anxiety; Z79.01 Long term (current) use of anticoagulants; Z79.899 Other long term (current) drug therapy
CPT/HCPCS: 36415; 70450; 71045; 72125; 73502; 80048; 80053; 80076; 80162; 80202; 81003; 82550; 82565; 82803; 82947; 83605; 83735; 83880; 84484; 85014; 85018; 85025; 85027; 85610; 85730; 86850; 86900; 86901; 86923; 87040; 87635; 87640; 87641; 92950; 93005; 97162; 99285; C1758; J1170; J2060; J2270; J2543; J3010; J3370; P9016

== ENCOUNTER → 2022-08-11 19:43 | Outpatient (BNV) | payer MEDICARE, OTHER, SELFPAY | PROVIDERS: Admitting Provider Internal Medicine; Emergency Provider Emergency Medicine; Visit Provider Internal Medicine | DX: J18.9 Pneumonia, unspecified organism (principal) | CPT/HCPCS: 99223; 99233; 99238 ==